=== PATIENT | female | born 1970 | race Caucasian/White ===

== ENCOUNTER → 2017-04-01 15:05 | Outpatient (CLI) | payer BC, SELFPAY ==
--- NOTE | 2017-04-01 15:31 | HPBI_ITS ---
MAMMOGRAPHY - BILATERAL SCREENING REASON FOR EXAM: Female, 46 years old. Routine annual screening examination. PERTINENT HISTORY: Non-contributory. TECHNIQUE: Digital bilateral breast jose (3D mammographic acquisition) in the CC and MLO projections. 2-D mediolateral oblique (MLO) and craniocaudad (CC) views of both breasts were obtained. CAD: Full Field Digital Mammography with Computer Added Detection was performed. COMPARISON: Comparison is made with prior examination dated December 26, 2015. FINDINGS: Breast Composition: There are scattered areas of fibroglandular density. There are no dominant masses or suspicious calcifications. Stable partially calcified nodules in the upper deep medial aspect of the left breast in keeping with a calcified fibroadenomas. Stable 8 mm well-defined nodular density in the upper lateral portion of the right breast suggestive of a small lymph node. No other significant abnormalities are identified. There has been no significant change since the prior study. HPBI/SCREENING MAMM (CAD), BILAT IMPRESSION: Stable bilateral screening mammogram. Yearly follow-up mammogram recommended. (A) ASSESSMENT CATEGORY: BIRADS Category 2: Benign. A letter regarding these results will be sent to the patient by the facility within 30 days. Approximately 10% of breast cancers are not detected by mammography. A normal mammogram should not delay biopsy of a clinically suspicious abnormality. [id number] Electronically Signed: Thanh Bray MD at 8:25 EST Tel [phone], Service support ,
== END ==
PROVIDERS: Family Provider Family Medicine; PCP Family Medicine; Visit Provider Nurse Practitioner Women's Health
DX: Z12.31 Encounter for screening mammogram for malignant neoplasm of breast (principal)
CPT/HCPCS: 77063; 77067

== ENCOUNTER 2017-06-30 03:26 | Emergency (ER) | payer BC, SELFPAY ==
[2017-06-30 03:28] VITALS: BP 164/81; PULSE 107; RESP 16; TEMP 37.2; O2SAT 97; BMI 42.6
--- NOTE | 2017-06-30 04:01 | EKG12_ITS ---
Test Reason : PAIN Blood Pressure : / mmHG Vent. Rate : 093 BPM Atrial Rate : 093 BPM P-R Int : 114 ms QRS Dur : 086 ms QT Int : 348 ms P-R-T Axes : 016 017 036 degrees QTc Int : 432 ms Normal sinus rhythm Normal ECG Confirmed by FELICITA HARTMANN, LISA ([id number]), field map editor MICHAEL BAIG ([id number]) on 07/01/2017 3:43:18 PM Referred By: JUS Confirmed By:LISA MIMS MD
--- NOTE | 2017-06-30 04:02 | RAD_ITS ---
STUDY: X-RAY CHEST REASON FOR EXAM: Female, 47 years old. Pain on the right breast and in shoulder. TECHNIQUE: PA and lateral views of the chest. 3 images COMPARISON: 11/29/2016 FINDINGS: There are superimposed monitor leads. Minimal atelectasis or scarring in the left base. There is no focal parenchymal abnormality. There is no demonstrated pleural abnormality. Normal size heart. Normal mediastinum and sindy. Normal visualized pulmonary arteries. Normal visualized aortic arch and descending thoracic aorta. Age-appropriate thoracic spine. Normal visualized ribs, clavicles, and shoulders. There is no demonstrated abnormality of the visualized soft tissue structures of the upper abdomen. RAD/Chest PA and Lateral IMPRESSION: Minimal scarring or atelectasis left base. No pulmonary edema, congestive heart failure or confluent pneumonia. Electronically Signed: Emilia Galdamez MD at 4:39 EDT , Service support ,
--- NOTE | 2017-06-30 04:03 | ED.VISSUMM ---
- ER Visit Summary Date of Service: 06/30/17 Chief Complaint: Right chest pain History of Present Illness: The patient is a 47 F who presents for several hours of right-sided pleuritic chest pain. Patient was at rest when she began having sharp stabbing pain under her right breast and radiating up towards the upper chest. It was intermittent initially, but now has become more consistent. It is worse with breathing, coughing and moving. Improved if patient holds her breath or stays still. She has associated nausea, cough and shortness of breath. No fever. Patient states she had bronchitis last week. Recent flight to [place]. No history of DVT or PE. Former smoker and not currently on any hormone replacement. Patient has history of hypertension, hypercholesterolemia, GERD and hysterectomy. Physical Examination: Vital signs: afebrile, tachycardic, normotensive,, no hypoxia on room air General: well nourished, well developed, in no distress but tearful and appears uncomfortable Skin: warm, dry, no rash, no pallor, no vesicular rash or erythema to the right chest or under the breast HEENT: normocephalic and atraumatic; PERRL, EOMI, moist mucous membranes Cardiovascular: Tachycardic rate and rhythm without murmurs, no peripheral edema, 2+ pulses all distal extremities Respiratory: Shallow respirations, lungs are clear to auscultation bilaterally, no rales, rhonchi or wheezing Abdominal: Abdomen is soft, nontender with normoactive bowel sounds, no guarding or rebound, no masses MSK: Moves all extremities, no deformities, normal strength, healing contusions to the left lower leg no calf swelling or tenderness Neuro: Awake and alert, oriented ?4. No facial droop, sensation and motor function intact and symmetric Test Results: Abnormal Lab Results 06/30/17 06/30/17 06/30/17 04:15 04:15 04:15 WBC 14.7 H RBC 4.01 L Hgb 12.4 Hct 36.4 L MCV 90.8 MCH 30.9 MCHC 34.1 RDW 12.9 RDW Differential 42.4 Plt Count 323 MPV 10.7 Immature Gran % (Auto) 0.300 Neut % (Auto) 77.5 H Lymph % (Auto) 12.0 L [place] % (Auto) 8.5 Eos % (Auto) 1.6 Baso % (Auto) 0.1 Absolute Neuts (auto) 11.4 H Absolute Lymphs (auto) 1.76 Total Counted Not Reportable D-Dimer Quant (PE/DVT) Cancelled Sodium 141 Potassium 3.9 Chloride 105 Carbon Dioxide 27.0 Anion Gap 9 BUN 12 Creatinine 0.72 Estim Creat Clear Calc 95.34 Est GFR (MDRD) Af Amer 110 Est GFR (MDRD) Non-Af 91 BUN/Creatinine Ratio 16.6 Glucose 147 H Calcium 8.4 L Total Bilirubin 0.20 AST 15 ALT 28 Alkaline Phosphatase 95 Troponin I < 0.02 Total Protein 6.8 Albumin 3.2 Globulin 3.6 Albumin/Globulin Ratio 0.9 Lipase 202 06/30/17 04:58 WBC RBC Hgb Hct MCV MCH MCHC RDW RDW Differential Plt Count MPV Immature Gran % (Auto) Neut % (Auto) Lymph % (Auto) [place] % (Auto) Eos % (Auto) Baso % (Auto) Absolute Neuts (auto) Absolute Lymphs (auto) Total Counted D-Dimer Quant (PE/DVT) 0.36 Sodium Potassium Chloride Carbon Dioxide Anion Gap BUN Creatinine Estim Creat Clear Calc Est GFR (MDRD) Af Amer Est GFR (MDRD) Non-Af BUN/Creatinine Ratio Glucose Calcium Total Bilirubin AST ALT Alkaline Phosphatase Troponin I Total Protein Albumin Globulin Albumin/Globulin Ratio Lipase Emergency Department Course and Treatment: Patient was given morphine for pain. Her chest pain is more pleuritic in nature, making acute coronary syndrome less likely. EKG showed no ischemic changes and no changes concerning for pericarditis. Troponin negative. Patient had leukocytosis of 14.7, and on further questioning, she recently completed a course of prednisone for her bronchitis. She is now on diclofenac times daily for knee pain and then will switch back to her Mobic after 1 week. Chest x-ray showed no pneumonia, pneumothorax or other acute process. No electrolyte derangements. No liver derangements. Lipase normal. D-dimer is within normal limits at 0.36. Patient had some improvement in her pain with the morphine. We discussed that her diagnosis is most likely inflammation between the lining of the lung and the chest wall, likely due to her recent respiratory infection. Patient is currently on anti-inflammatory pain medication and thus cannot be prescribed more. She also just recently finished prednisone and thus it is unlikely for the prednisone will help her symptoms. Thus she was given a short course of [place] for severe pain but is encouraged to continue using the anti-inflammatories as much as possible. She is to follow-up with her doctor for further discussion of pain management strategies if she does not get relief within 1-2 days. Patient was discharged home with a ride. Treatment Plan: [] Disposition: [] Impression: Pleurisy This note was generated with [employer] dictation software. It may contain incorrect words, spelling, and punctuation that were not noted in review of the chart prior to signing ED Disposition - Plan for ED Patient: Disposition: Home or Assisted Living Chief Complaint: Other, Pain/Inj Instructions: ED Chest Pain Pleurisy Prescriptions: Hydrocodone/Acetaminophen [[place] 5-325 Tablet] 1 - 2 ea PO 4X/DAY PRN PRN 2 Days #8 tab PRN Reason: Pain Referrals: Buddy Hui MD [Primary Care Provider] - As soon as possible Additional Instructions: Your workup tonight for your sharp chest pain is most consistent with pleurisy. You are already on nonsteroidal anti-inflammatory medications and just finished a course of prednisone, which would be the most common treatments for pleurisy. Please continue to take your anti-inflammatory medications as you have been prescribed. You may use the [place] as needed for severe pain. Please follow-up with your doctor in 1-2 days if you are not having any improvement. If at any time your condition worsens, such as you develop high fever, severe chest pain that is not controlled with pain medication, trouble breathing, dizziness or lightheadedness, or any other concerns, return immediately to the emergency department for another evaluation.
--- NOTE | 2017-06-30 04:06 | ED.DCSUM_ITS ---
- ER Visit Summary Date of Service: 06/30/17 Chief Complaint: Right chest pain History of Present Illness: The patient is a 47 F who presents for several hours of right-sided pleuritic chest pain. Patient was at rest when she began having sharp stabbing pain under her right breast and radiating up towards the upper chest. It was intermittent initially, but now has become more consistent. It is worse with breathing, coughing and moving. Improved if patient holds her breath or stays still. She has associated nausea, cough and shortness of breath. No fever. Patient states she had bronchitis last week. Recent flight to [place]. No history of DVT or PE. Former smoker and not currently on any hormone replacement. Patient has history of hypertension, hypercholesterolemia, GERD and hysterectomy. Physical Examination: Vital signs: afebrile, tachycardic, normotensive,, no hypoxia on room air General: well nourished, well developed, in no distress but tearful and appears uncomfortable Skin: warm, dry, no rash, no pallor, no vesicular rash or erythema to the right chest or under the breast HEENT: normocephalic and atraumatic; PERRL, EOMI, moist mucous membranes Cardiovascular: Tachycardic rate and rhythm without murmurs, no peripheral edema , 2+ pulses all distal extremities Respiratory: Shallow respirations, lungs are clear to auscultation bilaterally, no rales, rhonchi or wheezing Abdominal: Abdomen is soft, nontender with normoactive bowel sounds, no guarding or rebound, no masses MSK: Moves all extremities, no deformities, normal strength, healing contusions to the left lower leg no calf swelling or tenderness Neuro: Awake and alert, oriented ?4. No facial droop, sensation and motor function intact and symmetric Test Results: Abnormal Lab Results 06/30/17 06/30/17 06/30/17 04:15 04:15 04:15 WBC 14.7 H RBC 4.01 L Hgb 12.4 Hct 36.4 L MCV 90.8 MCH 30.9 MCHC 34.1 RDW 12.9 RDW Differential 42.4 Plt Count 323 MPV 10.7 Immature Gran % (Auto) 0.300 Neut % (Auto) 77.5 H Lymph % (Auto) 12.0 L [place] % (Auto) 8.5 Eos % (Auto) 1.6 Baso % (Auto) 0.1 Absolute Neuts (auto) 11.4 H Absolute Lymphs (auto) 1.76 Total Counted Not Reportable D-Dimer Quant (PE/DVT) Cancelled Sodium 141 Potassium 3.9 Chloride 105 Carbon Dioxide 27.0 Anion Gap 9 BUN 12 Creatinine 0.72 Estim Creat Clear Calc 95.34 Est GFR (MDRD) Af Amer 110 Est GFR (MDRD) Non-Af 91 BUN/Creatinine Ratio 16.6 Glucose 147 H Calcium 8.4 L Total Bilirubin 0.20 AST 15 ALT 28 Alkaline Phosphatase 95 Troponin I < 0.02 Total Protein 6.8 Albumin 3.2 Globulin 3.6 Albumin/Globulin Ratio 0.9 Lipase 202 06/30/17 04:58 WBC RBC Hgb Hct MCV MCH MCHC RDW RDW Differential Plt Count MPV Immature Gran % (Auto) Neut % (Auto) Lymph % (Auto) [place] % (Auto) Eos % (Auto) Baso % (Auto) Absolute Neuts (auto) Absolute Lymphs (auto) Total Counted D-Dimer Quant (PE/DVT) 0.36 Sodium Potassium Chloride Carbon Dioxide Anion Gap BUN Creatinine Estim Creat Clear Calc Est GFR (MDRD) Af Amer Est GFR (MDRD) Non-Af BUN/Creatinine Ratio Glucose Calcium Total Bilirubin AST ALT Alkaline Phosphatase Troponin I Total Protein Albumin Globulin Albumin/Globulin Ratio Lipase Emergency Department Course and Treatment: Patient was given morphine for pain. Her chest pain is more pleuritic in nature, making acute coronary syndrome less likely. EKG showed no ischemic changes and no changes concerning for pericarditis. Troponin negative. Patient had leukocytosis of 14.7, and on further questioning, she recently completed a course of prednisone for her bronchitis. She is now on diclofenac times daily for knee pain and then will switch back to her Mobic after 1 week. Chest x-ray showed no pneumonia, pneumothorax or other acute process. No electrolyte derangements. No liver derangements. Lipase normal. D-dimer is within normal limits at 0.36. Patient had some improvement in her pain with the morphine. We discussed that her diagnosis is most likely inflammation between the lining of the lung and the chest wall, likely due to her recent respiratory infection. Patient is currently on anti-inflammatory pain medication and thus cannot be prescribed more. She also just recently finished prednisone and thus it is unlikely for the prednisone will help her symptoms. Thus she was given a short course of [place] for severe pain but is encouraged to continue using the anti- inflammatories as much as possible. She is to follow-up with her doctor for further discussion of pain management strategies if she does not get relief within 1-2 days. Patient was discharged home with a ride. Treatment Plan: [] Disposition: [] Impression: Pleurisy This note was generated with [employer] dictation software. It may contain incorrect words, spelling, and punctuation that were not noted in review of the chart prior to signing ED Disposition - Plan for ED Patient: Disposition: Home or Assisted Living Chief Complaint: Other, Pain/Inj Instructions: ED Chest Pain Pleurisy Prescriptions: Hydrocodone/Acetaminophen [[place] 5-325 Tablet] 1 - 2 ea PO 4X/DAY PRN PRN 2 Days #8 tab PRN Reason: Pain Referrals: Buddy Hui MD [Primary Care Provider] - As soon as possible Additional Instructions: Your workup tonight for your sharp chest pain is most consistent with pleurisy. You are already on nonsteroidal anti-inflammatory medications and just finished a course of prednisone, which would be the most common treatments for pleurisy. Please continue to take your anti-inflammatory medications as you have been prescribed. You may use the [place] as needed for severe pain. Please follow-up with your doctor in 1-2 days if you are not having any improvement. If at any time your condition worsens, such as you develop high fever, severe chest pain that is not controlled with pain medication, trouble breathing, dizziness or lightheadedness, or any other concerns, return immediately to the emergency department for another evaluation.
[2017-06-30] MEDS: Morphine 4 MG/ML Syringe IV (04:23)
[2017-06-30] MEDS: Ondansetron 4 MG/2 ML Vial IV (04:23)
[2017-06-30 04:33] LABS: Absolute Lymphocyte Count 1.76 X10^3/ul (0.83-4.51); Absolute Neutrophil Count 11.4 X10^3/uL (2.0-7.7); Basophil# 0.02 X10^3/uL; Basophil% 0.1 % (0-1); Eosinophil# 0.24 X10^3/uL; Eosinophils% 1.6 % (0-5); Hematocrit 36.4 % (37-47); Hemoglobin 12.4 g/dl (12.0-15.0); Lymphocyte # 1.76 X10^3/ul (4.0); Mean Corp Hgb Conc 34.1 g/gl (32-36); Mean Corpuscular Hgb 30.9 pg (27.0-32.0); Mean Corpuscular Volume 90.8 fL (81-99); Mean Platelet Vol. 10.7 fl (6.2-12.0); Monocyte# 1.25 X10^3/uL; Monocyte% 8.5 % (0-10); Neutrophil # 11.39 X10^3/uL (2.7-7.7); Neutrophil % 77.5 % (47-70); Platelet Count 323 K/mm3 (150-450); RBC Distribution Width CV 12.9 % (11.6-14.6); RBC Distribution Width SD 42.4 fl (35.1-43.9); Red Blood Count 4.01 M/mm3 (4.2-5.4); White Blood Count 14.7 K/mm3 (4.4-11.0)
[2017-06-30 04:35] LABS: POSITIVE COUNT NO; POSITIVE DIFFERENTIAL NO; POSITIVE MORPHOLOGY NO
[2017-06-30 04:51] LABS: ALB/GLOB Ratio 0.9 RATIO (0.9-2.4); AST(SGOT) 15 U/L (15-37); Alanine Aminotransfer ALT/SGPT 28 U/L (13-56); Albumin, Serum 3.2 g/dL (3.2-5.0); Alkaline Phosphatase 95 U/L (45-117); Anion Gap 9 (5-15); BUN 12 mg/dL (7-18); BUN/Creat Ratio 16.6 RATIO (10-20); Calcium,Total 8.4 mg/dL (8.5-10.1); Chloride 105 mmol/L (98-107); Creatinine, Serum 0.72 mg/dL (0.55-1.02); EST Glomerular Filtration Rate 91 mL/min (>60); Est Glom Filt Rate - Afr Amer 110 mL/min (>60); Estimated Creatinine Clearance 95.34 ml/min; Globulin 3.6 g/dL (2.2-4.2); Glucose 147 mg/dL (74-106); Lipase 202 U/L (73-393); Potassium 3.9 mmol/L (3.5-5.1); Protein, Total 6.8 g/dL (6.4-8.2); Sodium Level 141 mmol/L (136-145)
[2017-06-30 05:17] LABS: D-Dimer Quantitative (DVT/PE) 0.36 FEU/ug/m (0.27-0.49)
--- NOTE | 2017-06-30 05:41 | ED.DEP ---
ED Disposition - Plan for ED Patient: Disposition: Home or Assisted Living Chief Complaint: Other, Pain/Inj Instructions: ED Chest Pain Pleurisy Prescriptions: Hydrocodone/Acetaminophen [[place] 5-325 Tablet] 1 - 2 ea PO 4X/DAY PRN PRN 2 Days #8 tab PRN Reason: Pain Referrals: Buddy Hui MD [Primary Care Provider] - As soon as possible Additional Instructions: Your workup tonight for your sharp chest pain is most consistent with pleurisy. You are already on nonsteroidal anti-inflammatory medications and just finished a course of prednisone, which would be the most common treatments for pleurisy. Please continue to take your anti-inflammatory medications as you have been prescribed. You may use the [place] as needed for severe pain. Please follow-up with your doctor in 1-2 days if you are not having any improvement. If at any time your condition worsens, such as you develop high fever, severe chest pain that is not controlled with pain medication, trouble breathing, dizziness or lightheadedness, or any other concerns, return immediately to the emergency department for another evaluation.
--- NOTE | 2017-06-30 05:44 | DCINST.ED_ITS ---
ED Disposition - Plan for ED Patient: Disposition: Home or Assisted Living Chief Complaint: Other, Pain/Inj Instructions: ED Chest Pain Pleurisy Prescriptions: Hydrocodone/Acetaminophen [[place] 5-325 Tablet] 1 - 2 ea PO 4X/DAY PRN PRN 2 Days #8 tab PRN Reason: Pain Referrals: Buddy Hui MD [Primary Care Provider] - As soon as possible Additional Instructions: Your workup tonight for your sharp chest pain is most consistent with pleurisy. You are already on nonsteroidal anti-inflammatory medications and just finished a course of prednisone, which would be the most common treatments for pleurisy. Please continue to take your anti-inflammatory medications as you have been prescribed. You may use the [place] as needed for severe pain. Please follow-up with your doctor in 1-2 days if you are not having any improvement. If at any time your condition worsens, such as you develop high fever, severe chest pain that is not controlled with pain medication, trouble breathing, dizziness or lightheadedness, or any other concerns, return immediately to the emergency department for another evaluation.
[2017-06-30 05:54] VITALS: O2SAT 98
[2017-06-30 05:55] VITALS: BP 157/67; PULSE 98; RESP 16; O2SAT 97
[2017-06-30] MEDS: HYDROcodone Bitartrate/Apap 5/325 Tablet PO ×2 (05:56)
[2017-06-30 06:05] VITALS: BP 150/78; PULSE 97; RESP 18; O2SAT 98
== END 2017-06-30 06:05 | disposition home or self-care (01) ==
PROVIDERS: Emergency Provider Emergency Medicine; Family Provider Family Medicine; PCP Family Medicine
DX: R09.1 Pleurisy (principal); I10 Essential (primary) hypertension; E78.00 Pure hypercholesterolemia, unspecified; K21.9 Gastro-esophageal reflux disease without esophagitis; E66.9 Obesity, unspecified; Z68.41 Body mass index [BMI] 40.0-44.9, adult; Z79.82 Long term (current) use of aspirin; Z79.899 Other long term (current) drug therapy; Z87.891 Personal history of nicotine dependence
CPT/HCPCS: 71046; 80053; 83690; 84484; 85025; 85379; 93005; 96374; 96375; 99285; A4216; J2405

== ENCOUNTER 2017-07-08 16:11 | Emergency (ER) | payer BC, SELFPAY ==
[2017-07-08 16:12] VITALS: BP 157/87; PULSE 105; RESP 18; TEMP 36.7; O2SAT 95; BMI 42.7
--- NOTE | 2017-07-08 16:26 | VDLE_ITS ---
Reason For Study: LLE swelling RIGHT LEFT CFV is compressible, spontaneous, phasic, GSV is normal. competent and demonstrates normal CFV is compressible, spontaneous, phasic, augmentation. competent, and demonstrates normal Procedure augmentation. Exam performed portable in ED. FV is compressible, spontaneous, phasic, The study was technically difficult. competent and demonstrates normal A preliminary report was called and/or faxed augmentation. to DR. Fatmata Howe @ 4:45 pm & ED. POP V is compressible, spontaneous, phasic, competent and demonstrates normal augmentation. T/P Trunk is compressible. PTV is compressible. LT PerV is compressible. Interpretation Summary Deep veins of the left lower extremity are patent and compressible segmentally. There is no evidence of left lower extremity deep vein thrombosis. Valvular competence appears intact within the proximal deep venous system on the left . The left greater saphenous vein appears patent and compressible segmentally. Ordering Physician: Dion Howe Referring Physician: Rafael Hui Performed By: Demetrice Borges, NELSON, RVT
--- NOTE | 2017-07-08 16:28 | ED.VISSUMM ---
- ER Visit Summary Date of Service: 07/08/17 Chief Complaint: Left lower leg swelling History of Present Illness: The patient is a 47 F on 19 June she had a 4 hour flight. She also had a recent fall and bruising her left lower leg. Now she has swelling the left lower leg. She said this happened one other time before. But she has never had a DVT. She denies chest pain. She did get short of breath the other day inhaler and is feeling better. Any chest pain or hemoptysis. Physical Examination: Appearing middle-aged female vital signs are stable and afebrile. Pulse ox 95% room air no signs of hypoxia. H EENT exam unremarkable. Neck nontender no JVD. No lymphadenopathy. Lungs clear to auscultation bilaterally. Heart regular rhythm rate about 100. No murmur. Abdomen soft nontender. Normal bowel sounds no peritoneal signs. She is moving all 4 extremities are neurovascular intact. The left needle left ankle she has 1+ edema. No calf tenderness. Left foot is neurovascular intact with DP pulse. Full range of motion left hip, knee, ankle and foot. Normal touch sensation. No compartment syndrome. She did show me a picture of her left lower leg that was bruised after the fall 2 weeks ago. Neurologically she is awake alert with no focal deficits. Test Results: Venous ultrasound left lower leg shows no DVT per the substation maintenance technician. Emergency Department Course and Treatment: Repeat exam patient is doing well. Treatment Plan: That she does have a history of trauma to that leg. And had a picture showing the bruising. This will be treated conservatively with ice and anti-inflammatories. Disposition: Discharge Impression: Left lower leg edema secondary to recent fall and trauma This note was generated with [employer] dictation software. It may contain incorrect words, spelling, and punctuation that were not noted in review of the chart prior to signing ED Disposition - Plan for ED Patient: Chief Complaint: Edema Referrals: Buddy Hui MD [Primary Care Provider] -
--- NOTE | 2017-07-08 16:31 | ED.DCSUM_ITS ---
- ER Visit Summary Date of Service: 07/08/17 Chief Complaint: Left lower leg swelling History of Present Illness: The patient is a 47 F on 19 June she had a 4 hour flight. She also had a recent fall and bruising her left lower leg. Now she has swelling the left lower leg. She said this happened one other time before. But she has never had a DVT. She denies chest pain. She did get short of breath the other day inhaler and is feeling better. Any chest pain or hemoptysis. Physical Examination: Appearing middle-aged female vital signs are stable and afebrile. Pulse ox 95% room air no signs of hypoxia. H EENT exam unremarkable. Neck nontender no JVD. No lymphadenopathy. Lungs clear to auscultation bilaterally. Heart regular rhythm rate about 100. No murmur. Abdomen soft nontender. Normal bowel sounds no peritoneal signs. She is moving all 4 extremities are neurovascular intact. The left needle left ankle she has 1+ edema. No calf tenderness. Left foot is neurovascular intact with DP pulse. Full range of motion left hip, knee, ankle and foot. Normal touch sensation. No compartment syndrome. She did show me a picture of her left lower leg that was bruised after the fall 2 weeks ago. Neurologically she is awake alert with no focal deficits. Test Results: Venous ultrasound left lower leg shows no DVT per the appliance technician. Emergency Department Course and Treatment: Repeat exam patient is doing well. Treatment Plan: That she does have a history of trauma to that leg. And had a picture showing the bruising. This will be treated conservatively with ice and anti-inflammatories. Disposition: Discharge Impression: Left lower leg edema secondary to recent fall and trauma This note was generated with [employer] dictation software. It may contain incorrect words, spelling, and punctuation that were not noted in review of the chart prior to signing ED Disposition - Plan for ED Patient: Chief Complaint: Edema Referrals: Buddy Hui MD [Primary Care Provider] -
--- NOTE | 2017-07-08 16:54 | ED.DEP ---
ED Disposition - Plan for ED Patient: Disposition: Home or Assisted Living Chief Complaint: Edema Instructions: ED Leg Swelling Unilateral Referrals: Buddy Hui MD [Primary Care Provider] - 1 Week if not improving Additional Instructions: Ice and elevate your left leg. Ultrasound no signs of any DVT. Motrin for pain and swelling. This should improve if it is not follow-up with primary care physician.
[2017-07-08 17:01] VITALS: PULSE 85; RESP 18; O2SAT 96
== END 2017-07-08 17:09 | disposition home or self-care (01) ==
LOC: ED 17:06
PROVIDERS: Emergency Provider Emergency Medicine; Family Provider Family Medicine; PCP Family Medicine
DX: S80.12XA Contusion of left lower leg, initial encounter (principal); W19.XXXA Unspecified fall, initial encounter; Y93.9 Activity, unspecified; Y92.9 Unspecified place or not applicable; I10 Essential (primary) hypertension; E78.00 Pure hypercholesterolemia, unspecified; K21.9 Gastro-esophageal reflux disease without esophagitis; Z79.82 Long term (current) use of aspirin; Z79.899 Other long term (current) drug therapy
CPT/HCPCS: 93971; 99282

== ENCOUNTER → 2018-04-25 13:16 | Outpatient (CLI) | payer BC, SELFPAY ==
--- NOTE | 2018-04-25 13:19 | BI_ITS ---
MAMMOGRAPHY - BILATERAL SCREENING REASON FOR EXAM: Female, 47 years old. Routine annual screening examination. PERTINENT HISTORY: Non-contributory. TECHNIQUE: Digital bilateral breast jaymie (3D mammographic acquisition) in the CC and MLO projections. 2-D mediolateral oblique (MLO) and craniocaudad (CC) views of both breasts were obtained. CAD: Full Field Digital Mammography with Computer Added Detection was performed. COMPARISON: Comparison is made with prior study dated April 01, 2017. FINDINGS: Breast Composition: There are scattered areas of fibroglandular density. There are no dominant masses or suspicious calcifications. Stable partially calcified nodules in the upper medial aspect of the left breast. Stable 8 mm well-defined nodule in the upper lateral portion of the right breast. No other significant abnormalities are identified. There has been no significant change since the prior study. BI/SCREEN MAMM (CAD) W/JAYMIE BILAT IMPRESSION: Stable bilateral screening mammogram. Yearly follow-up mammogram recommended. (A) ASSESSMENT CATEGORY: BIRADS Category 2: Benign. A letter regarding these results will be sent to the patient by the facility within 30 days. Approximately 10% of breast cancers are not detected by mammography. A normal mammogram should not delay biopsy of a clinically suspicious abnormality. [id number] Electronically Signed: Thanh Bray, at 15:40 EST , Service support ,
== END ==
PROVIDERS: Family Provider Family Medicine; PCP Family Medicine; Visit Provider Nurse Practitioner Women's Health
DX: Z12.31 Encounter for screening mammogram for malignant neoplasm of breast (principal)
CPT/HCPCS: 77063; 77067

== ENCOUNTER 2018-10-22 22:01 | Observation (INO) | payer BC, SELFPAY ==
[2018-06-07 14:51] VITALS: BMI 42.7
[2018-10-22 22:03] VITALS: BP 161/110; PULSE 107; RESP 15; TEMP 37.1; O2SAT 96; BMI 43.3
--- NOTE | 2018-10-22 22:48 | RAD_ITS ---
STUDY: X-RAY CHEST REASON FOR EXAM: Female, 48 years old. Chest tightness TECHNIQUE: Frontal and lateral views of the chest. COMPARISON: June 30, 2017 FINDINGS: EKG leads artifacts. The lungs are clear and expanded. There is no demonstrated pleural abnormality. Normal size heart. Normal mediastinum and sindy. Normal visualized pulmonary arteries. Normal visualized aortic arch and descending thoracic aorta. Normal visualized thoracic spine. Normal visualized ribs, clavicles, and shoulders. There is no demonstrated abnormality of the visualized soft tissue structures of the upper abdomen. RAD/Chest 1 View (Portable) IMPRESSION: Normal x-ray examination of the chest. Electronically Signed: Giovany Gustafson, at 23:18 EDT Tel , Service support ,
--- NOTE | 2018-10-22 22:48 | EKG12_ITS ---
Test Reason : CP Blood Pressure : / mmHG Vent. Rate : 107 BPM Atrial Rate : 107 BPM P-R Int : 142 ms QRS Dur : 088 ms QT Int : 368 ms P-R-T Axes : 064 037 059 degrees QTc Int : 491 ms Sinus tachycardia Otherwise normal ECG Confirmed by TRACY HARTMANN, KATHYA ([id number]), publication editor VIKA PITTS ([id number]) on 10/25/2018 11:49:10 AM Referred By: DC Confirmed By:KATHYA MOLINA MD
[2018-10-22] MEDS: Aspirin 81 MG TAB.CHEW 324 MG PO (22:54)
[2018-10-22 22:55] VITALS: O2SAT 96
[2018-10-22 23:13] LABS: Absolute Lymphocyte Count 1.74 X10^3/uL (0.83-4.51); Absolute Neutrophil Count 5.4 X10^3/uL (2.0-7.7); Basophil# 0.02 X10^3/uL; Basophil% 0.3 % (0-1); Eosinophil# 0.23 X10^3/uL; Hematocrit 37.4 % (37-47); Lymphocyte # 1.74 X10^3/ul (4.0); Lymphocyte % 22.5 % (19-41); Mean Corp Hgb Conc 34.8 g/dL (32-36); Mean Corpuscular Hgb 30.7 pg (27.0-32.0); Mean Corpuscular Volume 88.2 fL (81-99); Mean Platelet Vol. 10.7 fl (6.2-12.0); Monocyte# 0.31 X10^3/uL; NRBC Flagged by Analyzer 0 % (0-5); Neutrophil # 5.39 X10^3/uL (2.7-7.7); Neutrophil % 69.8 % (47-70); Platelet Count 230 K/mm3 (150-450); RBC Distribution Width CV 12.6 % (11.6-14.6); RBC Distribution Width SD 40.7 fl (35.1-43.9); Red Blood Count 4.24 M/mm3 (4.2-5.4); White Blood Count 7.7 K/mm3 (4.4-11.0)
[2018-10-22 23:20] VITALS: BP 142/85; PULSE 89; RESP 19; O2SAT 94
[2018-10-22 23:32] LABS: Anion Gap 9 (5-15); BUN 16 mg/dL (7-18); BUN/Creat Ratio 19.6 RATIO (10-20); Calcium,Total 8.9 mg/dL (8.5-10.1); Chloride 105 mmol/L (98-107); Creatinine, Serum 0.82 mg/dL (0.55-1.02); EST Glomerular Filtration Rate 79 mL/min (>60); Est Glom Filt Rate - Afr Amer 95 mL/min (>60); Glucose 179 mg/dL (74-106); Sodium Level 140 mmol/L (136-145)
[2018-10-23] VITALS (8 sets, daily range): BP systolic 124–145; BP diastolic 64–83; PULSE 78–97; RESP 16–21; TEMP 36.6–37.1; O2SAT 95–97; BMI 43.3; BMI 43.9
--- NOTE | 2018-10-23 00:07 | HP.PCM_ITS ---
Problem List (1) Family history of cardiovascular disease Status: Chronic (2) Morbid obesity with body mass index of 40.0-49.9 Status: Chronic (3) HLD (hyperlipidemia) Status: Chronic (4) HTN (hypertension) Status: Chronic Qualifiers: Hypertension type: essential hypertension Qualified Code(s): I10 - Essential (primary) hypertension (5) Chest pain Status: Acute History of Present Illness Date of Admission: 10/23/18 Chief Complaint: chest pain The patient is a 48 year old F with a significant history of hypertension; hyperlipidemia; GERD; super morbid obesity; and tobacco abuse who presented to emergency department with substernal mild chest pain that started 1 hour prior to presentation. She describes her chest pain as tightness. The chest pain radiates to her jaw; and to her left shoulder. Her chest pain started when she was loading her glass curvature gauger. Associated with symptoms is shortness of breath; nausea and diaphoresis. For the last 3 weeks has been having shortness of breath with moderate exertion. When she walks up to a flight of stairs she becomes very short of breath. She took 1 baby aspirin when her chest pain started. She reported that she has being take a baby aspirin daily since she was started on blood pressure medicine many years ago. She was given 324 mg of aspirin at the emergency department. About 6 days ago she went to urgent care because of right upper quadrant pain and was referred to see a doctor at the office. A follow-up ultrasound of her right upper quadrant was unremarkable. Because of shortness breath for the last 3 weeks; and diaphoresis she was referred to see a district customs director. She is scheduled to see the district customs director on 10/24/2018 at 8 AM at [facility]. Her family history is remarkable for a maternal grandmother who from heart attack at age 58; her mother who had heart attack at about age 65; and her father who had heart attack at age 60. Past Medical History Past Medical History (Chronic Problems): Chronic Problems (Last Reviewed 10/23/18 @ 01:24 by Mitchell Turner MD) Family history of cardiovascular disease (Chronic) Morbid obesity with body mass index of 40.0-49.9 (Chronic) HLD (hyperlipidemia) (Chronic) GERD (gastroesophageal reflux disease) (Chronic) Endometriosis (Chronic) HTN (hypertension) (Chronic) Medical History: Medical History (Last Reviewed 10/23/18 @ 01:24 by Mitchell Turner MD) Endometriosis N80.9 Hyperlipidemia E78.5 Hypertension I10 Allergies codeine Allergy (Verified 06/07/18 14:50) Anaphylaxis shellfish derived Allergy (Verified 06/07/18 14:50) Nausea/Vom/Diarrhea strawberry Allergy (Verified 06/07/18 14:50) Hives Sulfa (Sulfonamide Antibiotics) Allergy (Verified 06/07/18 14:50) Anaphylaxis pineapple [Pineapple] Adverse Reaction (Verified 06/07/18 14:50) Nausea/Vom/Diarrhea IVP DYE Allergy (Uncoded 06/07/18 14:50) Anaphylaxis cherries Adverse Reaction (Uncoded 06/07/18 14:50) Nausea/Vom/Diarrhea squash Adverse Reaction (Uncoded 06/07/18 14:50) Nausea/Vom/Diarrhea walnuts Adverse Reaction (Uncoded 06/07/18 14:50) Nausea/Vom/Diarrhea Home Medications: Ambulatory Orders Medication Instructions Recorded Aspirin [Aspirin, Baby] 81 mg PO DAILY@0800 06/05/13 Cholecalciferol (Vitamin D3) 1,000 unit PO DAILY 06/05/13 [Vitamin D3] Simvastatin [Zocor] 5 mg PO QHS 06/05/13 Calcium Carbonate [Calcium] 300 mg PO BID 02/20/16 Glucosa Archuleta 2Kcl/Chondroitin Archuleta 1 ea PO BID 02/20/16 [Glucosamine-Chondroitin Cap] Pantoprazole Sodium [Protonix] 40 mg PO DAILY 02/20/16 meloxicam 15 mg tablet 15 mg PO QDAY 03/08/17 amlodipine 10 mg tablet 10 mg PO QDAY 05/02/17 hydrochlorothiazide 25 mg tablet 25 mg PO QAM 05/02/17 venlafaxine ER 75 mg 75 mg PO QDAY #90 cap 05/26/18 capsule,extended release 24 hr Cetirizine HCl [Zyrtec] 10 mg PO DAILY 10/22/18 Potassium (Otc) [Potassium Otc] 99 mg PO DAILY 10/22/18 Surgical History: Surgical History (Last Reviewed 10/23/18 @ 01:24 by Mitchell Turner MD) H/O laparoscopy Z98.890 H/O: hysterectomy Z98.890, Z90.710 Right ovary remains History of lateral meniscus repair of left knee Z98.890 Plantar fascia syndrome M72.2 Surgical History: cholecystectomy, tonsillectomy, - - exploratory laparoscopy for endometriosis. arthroscopic surgery on her knee. 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 he is para 3 3. Lives: Spouse/ Significant Other Smoking Status: Current every day smoker Tobacco Use: Cigarettes Alcohol: Occasional - *Family History Maternal Family History: Family History (Last Reviewed 10/23/18 @ 01:25 by Mitchell Turner MD) Father Myocardial infarction Hypertension Mother Heart disease Hypertension Grandmother Heart disease Hypertension History Items: Heart Disease, Pulmonary Disease Paternal Family History: Family History (Last Reviewed 10/23/18 @ 01:25 by Mitchell Turner MD) Father Myocardial infarction Hypertension Mother Heart disease Hypertension Grandmother Heart disease Hypertension History Items: Heart Disease, - - her father had an NV at age 58 Sibling Family History: Family History (Last Reviewed 10/23/18 @ 01:25 by Mitchell Turner MD) Father Myocardial infarction Hypertension Mother Heart disease Hypertension Grandmother Heart disease Hypertension History Items: - - she has a sister with Krystal's thyroiditis and anister with a thyroid tumor Review of Systems Constitutional: Denies: Chills, Fever, Weight Change HEENT: Denies: Head Aches, Sinus Congestion, Sinus Drainage Cardiovascular: Reports: Chest Tightness. Denies: Palpitations Respiratory: Reports: Shortness of Breath. Denies: Cough Gastrointestinal: Reports: Abdominal Pain - Right upper quadrant, Nausea. Denies: Vomiting Genitourinary: Denies: Dysuria Musculoskeletal: Denies: Joint Pain, Joint Tenderness Skin: Denies: Rash, Wounds Neurological: Denies: Numbness, Tingling, Focal weakness Psychiatric: Denies: Anxiety, Depression, Homicidal Ideations, Suicidal Ideations Hematologic/ Lymphatic: Denies: Easy Bruising, Easy Bleeding VTE Information - Inpt Only VTE Present on Admission: No VTE Mechan Device Prophylaxis: SCD's VTE Pharm Prophylaxis ordered?: No Patient Problems: Active and Suspected Problems (Last Reviewed 10/23/18 @ 01:24 by Mitchell Turner MD) Chest pain (Acute) - Physical Exam General: Alert, Oriented x3, Cooperative HEENT: Atraumatic, PERRLA, EOMI, Normocephalic Neck: Supple, No JVD, Negative Carotid Bruits Lungs: Clear to auscultation, Normal air movement Cardiovascular: Regular rate, No murmurs Abdomen: Bowel Sounds Present, Soft, Tender Extremities: No edema, Capillary Refill Less than 3 Seconds Skin: No rashes, No breakdown Musculoskeletal: No Tenderness to Palpation of Joints or Extremities Neurological: Cranial nerves II-XII grossly intact Psych/Mental Status: Normal Affect, Appropriate Vital Signs Temp Pulse Resp BP Pulse Ox 98.8 F 89 19 H 142/85 H 94 10/22/18 22:03 10/22/18 23:20 10/22/18 23:20 10/22/18 23:20 10/22/18 23:20 Oxygen Delivery Method Room Air Weight: 129.274 kg Body Mass Index (BMI) 43.3 Laboratory Tests Past 24 Hrs 10/22/18 10/22/18 10/22/18 23:05 23:05 23:05 WBC 7.7 RBC 4.24 Hgb 13.0 Hct 37.4 MCV 88.2 MCH 30.7 MCHC 34.8 RDW Std Deviation 40.7 RDW Coeff of Delia 12.6 Plt Count 230 MPV 10.7 Immature Gran % (Auto) 0.400 Neut % (Auto) 69.8 Lymph % (Auto) 22.5 [place] % (Auto) 4.0 Eos % (Auto) 3.0 Baso % (Auto) 0.3 Absolute Neuts (auto) 5.4 Absolute Lymphs (auto) 1.74 Nucleated RBC % 0 Sodium 140 Potassium 3.0 L Chloride 105 Carbon Dioxide 26.0 Anion Gap 9 BUN 16 Creatinine 0.82 Estim Creat Clear Calc 82.80 Est GFR (MDRD) Af Amer 95 Est GFR (MDRD) Non-Af 79 BUN/Creatinine Ratio 19.6 Glucose 179 H Calcium 8.9 Magnesium Pending Troponin I < 0.015 Assessment/Plan All Active Problems (Last Reviewed 10/23/18 @ 01:24 by Mitchell Turner MD) Chest pain (Acute) Atypical chest pain (Acute) Nausea (Acute) The patient is a 48 year old F with a significant history of hypertension; hyperlipidemia; super morbid obesity; and tobacco abuse who presented to emergency department with substernal mild chest pain; shortness of breath; nausea and diaphoresis consistent with probable cardiac source of chest pain. Chest pain Admit to a monitored bed on PCU CXR independently reviewed confirms no acute cardiopulmonary process. EKG independently reviewed confirms sinus tach with rate of 107 ASA 81 mg p.o. daily SL NTG 0.4 mg prn as needed for chest pain Morphine as needed for pain We will check lipid panel. Serial cardiac enzymes Stat EKG as needed for chest pain Chemical stress test in the AM if the cardiac enzymes are negative. She reported history of disc surgery and is unable to do the treadmill. She does physical therapy at home. Hypokalemia On presentation his potassium was 3.0. Patient received 40 mEq of potassium in the emergency department. Will give additional 60 mg of potassium. She reports that she has a history of chronic hypokalemia and was admitted for that previously. Trend BMP At home patient is on home [id number] potassium supplementation; not ordered here. Resume further Potassium supplementation at the hospital if patient stays for more than 1 day.. Continue outpatient follow-up. Hypertension On presentation her blood pressure was not within goal. Amlodipine and hydrochlorthiazide continued Trend blood pressure and adjust blood pressure medication. Of note because patient has chronic hypokalemia consider discussing switching hydrochlorothiazide to say lisinopril GERD Protonix continued Chronic pain Meloxicam continued. Allergies Zyrtec continued Hyperlipidemia Patient is on low-dose Zocor. Continue for now. Check lipid panel. Hyperglycemia On presentation her glucose on BMP was 179. Check hemoglobin A1c. DVT prophylaxis Moderate risk. Put on SCD. After stress test if patient continue to be at the Hospital consider chemical thromboprophylaxis. Code Visit OBSV E&M: 89359 Initial observation care L3
--- NOTE | 2018-10-23 00:07 | ED.VISSUMM ---
- ER Visit Summary Date of Service: 10/23/18 Chief Complaint: Shortness of breath History of Present Illness: The patient is a 48 F with shortness of breath that started this evening. She has had this on and off for weeks with exertion. She gets diaphoretic out of nowhere. Today she was also starting to have left jaw and left shoulder aching, chest tightness, and nausea. She was evaluated as an outpatient for her symptoms, specifically the shortness of breath and diaphoresis, and she had an abnormal EKG. She was referred for outpatient follow-up with cardiology. Patient has no history of coronary disease. She does report a history of hypertension, hyperlipidemia, smoking, and family history. She had a stress test years ago which was unremarkable. Physical Examination: Afebrile and vital signs unremarkable. Alert and oriented. No acute distress. Heart regular. Lungs clear. Abdomen soft. Remedies nontender with no edema. Skin appears normal. Test Results: EKG showed sinus rhythm at a rate of 107. No sign of ischemia or infarction pattern. CBC normal. Potassium 3.0 and glucose 179. Troponin normal. Magnesium pending. Emergency Department Course and Treatment: Patient treated with aspirin and placed on a monitor. EKG was unremarkable. Labs showed hypokalemia and she was treated with K-Dur. Magnesium is pending. Chest x-ray was unremarkable. Given her age, symptoms, and risk factors, hospitalist was contacted for admission. Treatment Plan: As above Disposition: PCU Impression: 1. Chest pain This note was generated with [employer] dictation software. It may contain incorrect words, spelling, and punctuation that were not noted in review of the chart prior to signing ED Disposition - Plan for ED Patient: Referrals: Buddy Hui MD [Primary Care Provider] -
[2018-10-23 00:10] LABS: Magnesium 1.7 mg/dL (1.6-2.6)
--- NOTE | 2018-10-23 01:00 | NURSING ---
TOLD RN HE WANTS THE EXTRA POTASSIUM GIVEN EVEN THOUGH PATIENT HAD 40MEQ IN ER.
--- NOTE | 2018-10-23 01:17 | EKG12_ITS ---
Test Reason : CP ADMIT Blood Pressure : / mmHG Vent. Rate : 080 BPM Atrial Rate : 080 BPM P-R Int : 136 ms QRS Dur : 090 ms QT Int : 402 ms P-R-T Axes : 017 040 057 degrees QTc Int : 463 ms Normal sinus rhythm Normal ECG Confirmed by TRACY HARTMANN, KATHYA ([id number]), map editor VIKA PITTS ([id number]) on 10/25/2018 12:56:41 PM Referred By: DR LEMUS Confirmed By:KATHYA MOLINA MD
[2018-10-23] MEDS: 0.9% NaCl IVPB Med Flush (250 mL) 15 ML IV (02:22)
[2018-10-23 04:38] LABS: Hemoglobin A1c 6.5 % (4.2-6.3)
[2018-10-23 05:16] LABS: Anion Gap 9 (5-15); BUN 17 mg/dL (7-18); BUN/Creat Ratio 28.9 RATIO (10-20); Calcium,Total 8.6 mg/dL (8.5-10.1); Chloride 109 mmol/L (98-107); Cholesterol 146 mg/dL (200); Creatinine, Serum 0.59 mg/dL (0.55-1.02); EST Glomerular Filtration Rate 115 mL/min (>60); Est Glom Filt Rate - Afr Amer 139 mL/min (>60); Estimated Creatinine Clearance 115.07 ml/min; Glucose 119 mg/dL (74-106); High Density Lipoprotein 34 mg/dL; Sodium Level 143 mmol/L (136-145); Triglycerides 142 mg/dL; Very Low Density Lipoprotein 28 mg/dL (5-40)
[2018-10-23] MEDS: Aspirin E.C. 81 MG Tablet PO (05:43)
[2018-10-23] MEDS: amLODIPine 10 MG Tablet PO (05:43)
[2018-10-23] MEDS: 0.9% NaCl Peripheral Flush Adult/Peds IV (05:43)
[2018-10-23] MEDS: Pantoprazole Sodium 40 MG Tablet PO (10:00)
[2018-10-23] MEDS: hydroCHLOROthiazide 25 MG Tablet PO (10:00)
[2018-10-23] MEDS: Meloxicam 15 MG Tablet PO (10:00)
--- NOTE | 2018-10-23 10:43 | STRESSREP_ITS ---
Stress Test Report Pharmacologic myocardial perfusion stress test. 78-year-old female with a history of chest pain. Stress protocol: Resting EKG demonstrates normal sinus rhythm with a rate of 80 bpm resting blood pressures 142/92 mmHg. 0.4 mg of regadenoson was infused per usual protocol followed by rapid intravenous saline flush injection continuous athletic monitor was performed. The maximum heart rate attained was 102 bpm which was 60% of maximum predicted heart rate and maximum workload was 1 metabolic equivalent. At rest there were no ST or T wave changes noted suggest abnormal flow reserve at peak infusion nonspecific ST-T wave changes were noted with no meet the criteria for ischemia. No clinical angina was noted. Myocardial perfusion protocol. Next 14.5 mCi of technetium 99m sestamibi was injected at rest. 0.4 mg of regadenoson was infused per usual protocol peak infusion 44.8 mCi of technetium 99m sestamibi was injected stress images were obtained stress and rest images were reconstructed and compared in the short axis vertical and horizontal long axis. Gated images were also obtained Perfusion SPECT analysis: Review of the stress images demonstrate normal uptake of tracer noted in all areas of the myocardium. The resting images similar demonstrate normal uptake of tracer noted in all areas of the myocardium. No obvious areas of reversibility are noted suggest ischemia. Gated SPECT analysis: The gated ejection fraction is noted to be 58%. Conclusion: Normal pharmacologic myocardial perfusion stress test. Preserved ejection fraction.
--- NOTE | 2018-10-23 11:58 | DCINST_ITS ---
- Discharge Diagnoses Current Active Problems: Current Active and Chronic Problems (Last Reviewed 10/23/18 @ 01:24 by Mitchell Turner MD) Chest pain (Acute) You will use the following diet at home:: No restrictions Your food should be the consistency of: Regular Your liquids should be the consistency of: Regular/Thin Discharge Activity: Return to Normal Activity Weight Bearing Status: Full weight bearing Allergies/Adverse Reactions: Allergies codeine Allergy (Verified 06/07/18 14:50) Anaphylaxis shellfish derived Allergy (Verified 06/07/18 14:50) Nausea/Vom/Diarrhea strawberry Allergy (Verified 06/07/18 14:50) Hives Sulfa (Sulfonamide Antibiotics) Allergy (Verified 06/07/18 14:50) Anaphylaxis pineapple [Pineapple] Adverse Reaction (Verified 06/07/18 14:50) Nausea/Vom/Diarrhea IVP DYE Allergy (Uncoded 06/07/18 14:50) Anaphylaxis cherries Adverse Reaction (Uncoded 06/07/18 14:50) Nausea/Vom/Diarrhea squash Adverse Reaction (Uncoded 06/07/18 14:50) Nausea/Vom/Diarrhea walnuts Adverse Reaction (Uncoded 06/07/18 14:50) Nausea/Vom/Diarrhea Medications to take at Discharge Aspirin [Aspirin, Baby] 81 mg PO DAILY@0800 06/05/13 Cholecalciferol (Vitamin D3) [Vitamin D3] 1,000 unit PO DAILY 06/05/13 Simvastatin [Zocor] 5 mg PO QHS 06/05/13 Calcium Carbonate [Calcium] 300 mg PO BID 02/20/16 Glucosa Archuleta 2Kcl/Chondroitin Archuleta [Glucosamine-Chondroitin Cap] 1 ea PO BID 02/20/16 Pantoprazole Sodium [Protonix] 40 mg PO DAILY 02/20/16 meloxicam 15 mg tablet 15 mg PO QDAY 03/08/17 venlafaxine ER 75 mg capsule,extended release 24 hr 75 mg PO QDAY #90 cap 05/26/18 Cetirizine HCl [Zyrtec] 10 mg PO DAILY 10/22/18 Hydrochlorothiazide [Hctz] 12.5 mg PO QAM #1 tab 10/23/18 Lisinopril 40 mg PO DAILY #30 tab 10/23/18 The following prescriptions were given: Hydrochlorothiazide [Hctz] 12.5 mg PO QAM #1 tab Lisinopril 40 mg PO DAILY #30 tab Transmission Status: Pending to [facility]/pharmacy #[id number] Primary Care Physician: Buddy Hui MD [Primary Care Provider] - Please follow up with your Primary Care Physician in: IN 2 WEEKS Test Results: Test results from this visit will be discussed in further detail at your follow- up appointment, if applicable.
--- NOTE | 2018-10-26 09:35 | PCM.DC.SUM ---
Discharge Date and Diagnosis Date of Admission: 10/23/18 Date of Discharge: 10/23/18 - Primary Discharge Diagnosis #1 Musculoskeletal chest pain #2 Hypokalemia #3 Hypertension #4 Hyperlipidemia #5 Morbid obesity - Secondary Discharge Diagnosis Chronic Problems (Last Reviewed 10/23/18 @ 01:24 by Mitchell Turner MD) Family history of cardiovascular disease (Chronic) Morbid obesity with body mass index of 40.0-49.9 (Chronic) HLD (hyperlipidemia) (Chronic) GERD (gastroesophageal reflux disease) (Chronic) Endometriosis (Chronic) HTN (hypertension) (Chronic) Hospital Course and Treatment Operations: None Procedures: Nuclear stress test Summary of Care Provided: The patient is a 48 year old F who was seen in the emergency room at [facility] with a chief complaint of chest pain. Work up in the emergy room included an EGK which showed no ischemic ischemic changes, chest x-ray was unremarkable, your labs were unremarkable except for a low potassium at 3 and an elevated glucose. Patient had a hemoglobin A1c ordered which resulted in a reading of 6.5. Patient was placed observation status on PCU, cardiac enzymes are cycled they remain normal, patient underwent a nuclear stress test which showed no evidence of reversible ischemia, patient was given potassium replacement. On 10/23/2018, patient was seen and examined: On examination he appeared in good health and spirits. Vital signs as documented. Skin warm and dry and without overt rashes. Neck without JVD. Lungs clear. Heart exam notable for regular rhythm, normal sounds and absence of murmurs, rubs or gallops. Abdomen unremarkable and without evidence of organomegaly, masses, or abdominal aortic enlargement. Patient is obese. Extremities- nonedematous. Neuro: Cranial nerves II through XII are grossly intact, no focal motor deficits were noted, sensation to light touch and pinprick intact. Psych: Patient is alert and oriented x3, he does not appear anxious or depressed On 10/23/2018, patient was seen and examined felt in stable condition for discharge home. - Physical Exam Vital Signs Temp Pulse Resp BP Pulse Ox 98.4 F 86 16 139/82 H 96 10/23/18 10:37 10/23/18 10:37 10/23/18 10:37 10/23/18 10:37 10/23/18 11:13 Oxygen Delivery Method Room Air Weight: 130.9 kg Body Mass Index (BMI) 43.9 Discharge Activity: Return to Normal Activity Weight Bearing Status: Full weight bearing Home Medications: Medications to take at Discharge Aspirin [Aspirin, Baby] 81 mg PO DAILY@0800 06/05/13 Cholecalciferol (Vitamin D3) [Vitamin D3] 1,000 unit PO DAILY 06/05/13 Simvastatin [Zocor] 5 mg PO QHS 06/05/13 Calcium Carbonate [Calcium] 300 mg PO BID 02/20/16 Glucosa Archuleta 2Kcl/Chondroitin Archuleta [Glucosamine-Chondroitin Cap] 1 ea PO BID 02/20/16 Pantoprazole Sodium [Protonix] 40 mg PO DAILY 02/20/16 meloxicam 15 mg tablet 15 mg PO QDAY 03/08/17 venlafaxine ER 75 mg capsule,extended release 24 hr 75 mg PO QDAY #90 cap 05/26/18 Cetirizine HCl [Zyrtec] 10 mg PO DAILY 10/22/18 Hydrochlorothiazide [Hctz] 12.5 mg PO QAM #1 tab 10/23/18 Lisinopril 40 mg PO DAILY #30 tab 10/23/18 Following Prescrptions Were Given to Patient: Hydrochlorothiazide [Hctz] 12.5 mg PO QAM #1 tab Lisinopril 40 mg PO DAILY #30 tab Transmission Status: Received by [facility]/pharmacy #[id number] Primary Care Physician: Buddy Hui MD [Primary Care Provider] - Please follow up with your Primary Care Physician in: IN 2 WEEKS Disposition: Home Minutes spent on discharge:: 30 Patient Condition:: Stable Medical Necessity - Tobacco Use Smoking Status: Current every day smoker Tobacco Use: Cigarettes Meaningful Use Info Meaningful Use Diagnoses (Choose all that apply): None applicable Code Visit OBSV E&M: 73824 Observation care discharge
== END 2018-10-23 12:00 | disposition home or self-care (01) ==
LOC: ED 22:52 → PCU 10-23 01:34
PROVIDERS: Admitting Provider Hospitalist; Emergency Provider Emergency Medicine; Family Provider Family Medicine; PCP Family Medicine; Visit Provider Internal Medicine
DX: R07.89 Other chest pain (principal); I10 Essential (primary) hypertension; K21.9 Gastro-esophageal reflux disease without esophagitis; E87.6 Hypokalemia; E78.5 Hyperlipidemia, unspecified; R06.02 Shortness of breath; F17.210 Nicotine dependence, cigarettes, uncomplicated; R73.9 Hyperglycemia, unspecified; R94.31 Abnormal electrocardiogram [ECG] [EKG]; E66.01 Morbid (severe) obesity due to excess calories; Z82.49 Family history of ischemic heart disease and other diseases of the circulatory system; Z79.899 Other long term (current) drug therapy; Z68.41 Body mass index [BMI] 40.0-44.9, adult; Z71.3 Dietary counseling and surveillance; Z79.82 Long term (current) use of aspirin
CPT/HCPCS: 36415; 71045; 78452; 80048; 80061; 83036; 83735; 84484; 85025; 93005; 93017; 99218; 99285; A9500; J7050; A4216; G0378; J2785

== ENCOUNTER → 2019-07-05 15:00 | Outpatient (CLI) | payer BC, SELFPAY ==
[2018-10-23 01:21] VITALS: BMI 43.9
[2019-07-05 14:39] VITALS: BMI 43.9
--- NOTE | 2019-07-05 15:01 | BI_ITS ---
MAMMOGRAPHY - BILATERAL SCREENING REASON FOR EXAM: Female, 49 years old. Routine annual screening examination. PERTINENT HISTORY: Non-contributory. TECHNIQUE: Digital bilateral breast jaymie (3D mammographic acquisition) in the CC and MLO projections. 2-D mediolateral oblique (MLO) and craniocaudad (CC) views of both breasts were obtained. CAD: Full Field Digital Mammography with Computer Added Detection was performed. COMPARISON: Comparison is made with prior examination dated April 25, 2018 and April 01, 2017. FINDINGS: Breast Composition: There are scattered areas of fibroglandular density. There are no dominant masses or suspicious calcifications. Stable partially calcified nodules in the upper medial aspect of the left breast. Stable 8 mm well-defined nodule in the upper lateral aspect of the No other significant abnormalities are identified. There has been no significant change since the prior study. BI/SCREEN MAMM (CAD) W/JAYMIE BILAT IMPRESSION: Stable bilateral screening mammogram. Yearly follow-up mammogram recommended. (A) ASSESSMENT CATEGORY: BIRADS Category 2: Benign. A letter regarding these results will be sent to the patient by the facility within 30 days. Approximately 10% of breast cancers are not detected by mammography. A normal mammogram should not delay biopsy of a clinically suspicious abnormality. [id number] Electronically Signed: Thanh Bray, at 15:57 EDT , Service support ,
== END ==
PROVIDERS: PCP Family Medicine; Referring Provider Obstetrics & Gynecology; Visit Provider Obstetrics & Gynecology
DX: Z12.31 Encounter for screening mammogram for malignant neoplasm of breast (principal)
CPT/HCPCS: 77063; 77067

== ENCOUNTER 2020-04-30 05:46 | Day surgery (SDC) | payer BC, SELFPAY ==
[2019-07-05 14:39] VITALS: BMI 43.9
--- NOTE | 2020-04-25 12:42 | HP.PCM_ITS ---
History and Physical History and Physical [facility] Patient Name: Malik Rhoades : 1970 From: PHILIP ALTAMIRANO PA-C DATE OF SURGERY: 04/02/2020 SCHEDULED PROCEDURE: right knee arthroscopy with partial medial meniscectomy and chondroplasty HISTORY OF PRESENT ILLNESS: Preoperative history and physical exam was performed on April 25, 2020. This is a 49-year-old female who presents today for MRI results of her right knee. Patient has had ongoing pain in bilateral knees since a fall on March 15, 2020 in which she landed on bilateral knees twisting the knee. Her right knee has always been worse than the left knee. Patient continues to get catching sensation in the right knee. Patient also states she is having difficult time sleeping due to the pain. She has been using meloxicam with minimal relief. Her pain is primarily over the medial aspect of the knee on the right knee. Her pain is been constant, dull, aching, sharp, stabbing. Pain is increased with going up and down stairs, walking, and standing. MRI did reveal a medial meniscus tear. She is also had previous left knee arthroscopy for medial meniscectomy in 2013. She also continues to complain of left hip pain that she does wish to see Dr. Johnny Sen again. She was initially scheduled and referred to see Dr. Ruth but was not able to do this appointment. On the hip MRI it did reveal incidental finding and patient did have to undergo a hysterectomy which she never saw the specialist for the hip. Patient does have medical history pertinent for hypertension, acid reflux, and diabetes. We will undergo preoperative lab work and EKG. After failing conservative measures and discussing all treatment options, Patient does wish to proceed with a right knee arthroscopy with partial medial meniscectomy and chondroplasty. REVIEW OF SYSTEMS: ROS: Const: Denies anorexia, change in appetite, fever, hard of hearing, vision problems and weight change. CV: Denies chest pain, heart murmur, irregular heartbeat and peripheral vascular disease. Resp: Denies asthma, cough, pneumonia, sleep apnea, SOB, tuberculosis and wheezing. GI: Denies constipation, diarrhea, difficulty swallowing, heartburn, nausea, bloody stools and vomiting. : Genital:more than 3 mo. without period Urinary: denies incontinence. Musculo: Reports leg swelling, limp, trouble walking and weakness. Skin: Reports tattoo, but denies Raynaud's and history of shingles. Neuro: Denies ambulatory dysfunction, dizziness, numbness/tingling and tremor. Psych: Denies anxiety, depression, insomnia, mental illness and stress. Onel/Lymph: Denies anemia, bleeding/bruising tendency and past transfusion. Reviewed, no changes. PAST MEDICAL HISTORY: Advance Care Plan: No Advance Directives Effective Date: 03/17/2020 PMH: Medical Problems: High Blood Pressure, Acid Reflux Covid-19 - (11/2019) Hypercholesterolemia, Diabetes Accidents: LT Knee Twisted - GOLF Surgical Hx: Laproscopic-Endometrosis - (1995) Knee Arthroscopy LT - (11/22/2013) [facility] JWG RT Foot Planter - @[facility] Hysterectomy - (2014) Anesthesia Complications: None Assistive Devices: Glasses Reviewed and updated. 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 Personal Habits: Tobacco Use: Patient is a former smoker.Cigarette Use: Fo rmer.Alcohol: Occasionally.Drug Use: Denies Use.Enjoy Exercising: Exercises 1-3 X/Week. Reviewed, no changes. VITALS: Ht: 67 Wt: 280lb Wt k.008 BMI: 43.8 BP: 160/92 Pulse: 76 Resp: 14 T: 97.0 T: 36.1C Pain Level: 3 ALLERGIES: Sulfa Codeine Contrast Dye MEDICATIONS: [place]illan 5-325 mg 1-2 by mouth every 6 hour as needed pain, Meloxicam 15 mg 1 by mouth every day, Simvastatin 5 mg daily, Aspirin 81 mg 1 by mouth every day, Calcium 600 600 mg 1 by mouth a day, Vitamin D 1000 Units daily, Protonix 40 mg 1 tab PO daily, HZTZ 1 in the morning, Losartan 100 mg 1 in morning, Effexor XR 37.5 mg 1 @ night, Metformin HCL 2 X A day PRE-OP EXAM: General appearance:NORMAL Other: Eyes: Conjunctivae and lids: NORMAL Pupils: ERR Ears, Nose, Mouth, and Throat: NORMAL Other: Inspection of lips, teeth and gums: NORMAL Other: Neck: Examination of neck: no masses noted. Respiratory: Assessment of respiratory effort: NORMAL Other: Auscultation of lungs: clear to auscultation no wheezes, rhonchi or rales. Cardiovascular: Auscultation of heart: regular rate and rhythm, no murmurs, gallops or rubs. Exam of carotid arteries: NORMAL Other: Gastrointestinal: Exam of abdomen: soft, nontender, nondistended bowel sounds present. PHYSICAL EXAMINATION: On exam patient does walk with an antalgic gait. Right knee is cool to touch without erythema or signs of infection. Tenderness to palpation along the medial joint line. Positive Devora's examination which does reproduce pain on exam. Negative anterior/posterior drawer, negative varus/valgus stress test. Range of motion: 0 extension 120 flexion with pain. IMAGING STUDIES: Previous x-rays of the right knee reveal narrowing of the medial compartment with trace osteophyte off the medial tibial plateau. Overall well-maintained lateral compartment. MRI was reviewed from [facility] [place] on April 21, 2020 of the right knee which did reveal a posterior horn medial meniscus tear with chondromalacia primarily in the medial compartment. The details see MRI report IMPRESSION: 1. Right knee medial meniscus tear 2. Right knee osteoarthritis 3. Hypertension 4. Diabetes 5. Hypercholesterolemia 6. Gastroesophageal reflux disease 7. Morbid obesity with BMI 43.8 PLAN: I did discuss and review with the patient all treatment options including surgical versus nonsurgical options. Patient does wish to proceed with the above-stated procedure. Potential risks, benefits, and complications of the procedure were discussed in detail including but not limited to , infection, nerve and blood vessel damage, persistent pain, numbness, tingling, paresthesias, blood clot, pulmonary embolism, and requirement for possible further surgery. The patient expressed full understanding and has no further questions for the doctor. Patient does agree to proceed with the above-stated procedure and has signed the surgery consent form. We discussed the current risks associated with COVID 19. This does include the risk of exposure while in the hospital. Patient was reassured local hospitals have low infection rates and are taking all necessary precautions to avoid exposure to patients. In addition, we discussed strategies that can be used to help limit exposure including those that limit the patient's time in the hospital. Also using strategies to limit the patient's need for continued inpatient services after being discharged from the hospital. Patient was notified that we will need to comply with any screening or testing the hospital wishes to perform or that surgery may be delayed for any positive results. This dictation was created using voice recognition software. Phonetic and/or grammatical errors may exist. ___ I have re-examined the patient. There are no clinical changes since date of exam. ___ See progress notes for changes. ___ Dictated on admission Date: Time: Signature:
--- NOTE | 2020-04-29 08:27 | EKG12_ITS ---
Test Reason : PREOP Blood Pressure : / mmHG Vent. Rate : 089 BPM Atrial Rate : 089 BPM P-R Int : 118 ms QRS Dur : 088 ms QT Int : 372 ms P-R-T Axes : 040 054 077 degrees QTc Int : 452 ms Normal sinus rhythm Poor R wave progression Confirmed by TRACY HARTMANN, KATHYA ([id number]), supervising editor trailer VIKA PITTS ([id number]) on 04/30/2020 8:59:16 AM Referred By: Johnny Sen Confirmed By:KATHYA MOLINA MD
[2020-04-29 09:40] LABS: Hematocrit 42.4 % (37-47); Hemoglobin 13.6 g/dL (12.0-15.0); Mean Corp Hgb Conc 32.1 g/dL (32-36); Mean Corpuscular Volume 93.4 fL (81-99); Mean Platelet Vol. 10.8 fl (6.2-12.0); Platelet Count 284 K/mm3 (150-450); RBC Distribution Width CV 12.9 % (11.6-14.6); Red Blood Count 4.54 M/mm3 (4.2-5.4); White Blood Count 8.1 K/mm3 (4.4-11.0)
[2020-04-29 10:08] LABS: Anion Gap 6 (5-15); BUN 16 mg/dL (7-18); BUN/Creat Ratio 24.8 RATIO (10-20); Calcium,Total 8.9 mg/dL (8.5-10.1); Chloride 105 mmol/L (98-107); Creatinine, Serum 0.64 mg/dL (0.55-1.02); EST Glomerular Filtration Rate 103 mL/min (>60); Est Glom Filt Rate - Afr Amer 124 mL/min (>60); Glucose 124 mg/dL (74-106); Sodium Level 142 mmol/L (136-145)
[2020-04-29 10:11] LABS: Hemoglobin A1c 5.9 % (3.8-5.6)
[2020-04-30] VITALS (9 sets, daily range): BP systolic 136–160; BP diastolic 78–92; PULSE 77–106; RESP 14–18; TEMP 36.2–36.9; O2SAT 92–100; BMI 44.6
[2020-04-30] MEDS: Lactated Ringers 1,000 ML 100 ML IV ×2 (06:33→08:00)
[2020-04-30] MEDS: Epinephrine (1 mg/ml) 1 MG/ML VIAL (06:44)
[2020-04-30 07:15] LABS: Bedside Glucose 124 mg/dL (70-110)
[2020-04-30] MEDS: Bupiv/Epi 0.5% Mpf 30 ML Vial (07:34)
--- NOTE | 2020-04-30 07:55 | PCM.OPRPT ---
Report of Operation Date of Procedure: 04/30/20 Pre-Operative Diagnosis: Right knee medial meniscus tear. Right knee medial compartment chondromalacia Post-Operative Diagnosis: Right knee medial meniscus tear. Right knee medial compartment chondromalacia Surgery/Procedure Performed:: Right knee arthroscopic. 1 medial meniscectomy. 2 medial compartment chondroplasty Description of Surgical Findings:: See operative report radiochemical technician: None Type of Anesthesia:: General Anesthesiologist: Madhu Shin Special Medications: Ancef Estimated Blood Loss (mL): 5 Fluids Replaced: 1000 milliliters crystalloid Description of Procedure: On the date of the procedure, the patient's right lower extremity was marked in the preoperative area. Patient was brought back to the operating room where they were transferred to the bed. Anesthesia assumed control of the C-spine airway and administered anesthetic. All bony prominences were identified and well-padded and the right leg was placed in the arthroscopic leg hill. The contralateral leg was then draped over the bed and well-padded. There was padding underneath both sciatic nerves. The foot of the bed was then dropped and the right leg was prepped in a sterile fashion. The surgeon then scrubbed. Upon reentering the room, the operative leg was draped in a standard orthopedic fashion. A timeout was called, everyone agreed upon the side, the site, the procedure to be performed, patient's identity and antibiotics given. Incisions were marked out for the medial and lateral infrapatellar portals. Esmarch bandage was then used to exsanguinate the leg and tourniquet was placed at 250 mmHg. At this time, the lateral portal incision was made in a vertical fashion. The trocar was placed into the joint. The camera was then placed and the patellofemoral joint was visualized. The patella did appear to have minimal chondral changes. The trochlea appeared to have minimal chondral changes. We then directed our attention to the medial gutter where there was no foreign body. Then directed our attention to the medial joint compartment. There were overall grade 1 chondral changes on the medial distal femur with 1 small central area on the weightbearing surface of a grade 3 lesion, grade 1 chondral changes on the medial tibial plateau. The medial meniscus had a horn root tear.. The medial portal was then placed under direct visualization using a spinal needle an 11 blade scalpel. Once this was done a probe was placed in the joint and the meniscus was probed finding a radial tear off the capsule posteriorly. The biters and kerrie were then used sequentially to debriding get rid of any free edges that could be a source of pain and catching in the meniscus tear. Once we felt medial meniscus tear was adequately debrided, we again visualized the joint and noted the meniscus tear was adequately debrided. Attention was then turned towards the notch where the anterior cruciate ligament was intact. PCL was visualized and appeared intact. Attention was then directed towards the lateral compartment where the lateral distal femur had minimal chondral changes, the lateral proximal tibia had minimal chondral changes. The lateral meniscus had tearing. We then directed our attention to the lateral gutter, which was visualized and no free bodies were noted. At this time the wound was copiously irrigated out with normal saline with epinephrine. The wound was closed with 4-0 nylon.. Xeroform was placed over the incision. Sterile dressing was placed. Compressive dressing was placed. Tourniquet was let down. For that there was then placed up. Patient was awakened by anesthesia patient was transferred to the PACU for recovery in stable condition. Postoperative plan: Patient will be made weight-bear as tolerated. Return to activities as tolerated. He will come to the office in 2 weeks for postoperative wound check and suture removal. If he is doing well that time he can follow-up as needed. - Complications No intraoperative complications - Admit VTE Documentation VTE Present on Admission: No VTE Mechan Device Prophylaxis: SCD's VTE Pharm Prophylaxis ordered?: Yes
[2020-04-30] MEDS: Ketorolac 15 MG/ML Vial IV (08:22)
[2020-04-30 08:30] LABS: Bedside Glucose 120 mg/dL (70-110)
[2020-04-30] MEDS: HYDROcodone Bitartrate/Apap 5/325 Tablet PO (09:56)
== END 2020-04-30 10:45 | disposition home or self-care (01) ==
LOC: SDC 05:47 → AC 05:47
PROVIDERS: PCP Family Medicine; Referring Provider Specialist; Visit Provider Specialist
PROC: (CPT 29870; principal; 2020-04-30 06:55)
DX: S83.241A Other tear of medial meniscus, current injury, right knee, initial encounter (principal); M17.11 Unilateral primary osteoarthritis, right knee; M94.261 Chondromalacia, right knee; I10 Essential (primary) hypertension; E11.9 Type 2 diabetes mellitus without complications; E78.00 Pure hypercholesterolemia, unspecified; K21.9 Gastro-esophageal reflux disease without esophagitis; E66.01 Morbid (severe) obesity due to excess calories; Z68.41 Body mass index [BMI] 40.0-44.9, adult; Z79.84 Long term (current) use of oral hypoglycemic drugs; Z87.891 Personal history of nicotine dependence; Z79.899 Other long term (current) drug therapy; Z20.828 Contact with and (suspected) exposure to other viral communicable diseases; Z79.82 Long term (current) use of aspirin
CPT/HCPCS: 29881; 64447; 36415; 80048; 82962; 83036; 85027; 87426; 93005; C9803; J7120; J2405

== ENCOUNTER → 2020-07-07 12:07 | Outpatient (CLI) | payer BC, SELFPAY ==
[2019-07-05 14:39] VITALS: BMI 43.9
[2020-04-30 06:23] VITALS: BMI 44.6
--- NOTE | 2020-07-07 12:09 | BI_ITS ---
MAMMOGRAPHY - BILATERAL SCREENING REASON FOR EXAM: Female, 50 years old. Routine annual screening examination. PERTINENT HISTORY: Non-contributory. TECHNIQUE: Digital bilateral breast jaymie (3D mammographic acquisition) in the CC and MLO projections. 2-D mediolateral oblique (MLO) and craniocaudad (CC) views of both breasts were obtained. CAD: Full Field Digital Mammography with Computer Added Detection was performed. COMPARISON: Comparison is made with prior study dated 07/05/2019 and 09/22/2018. FINDINGS: Breast Composition: There are scattered areas of fibroglandular density. There are no dominant masses or suspicious calcifications. Stable partially calcified nodules are seen in the upper medial aspect of the left breast. Stable 6 mm well-defined nodule in the upper lateral aspect of the right breast. Stable benign-appearing bilateral axillary lymph nodes. No other significant abnormalities are identified. There has been no significant change since the prior study. BI/SCRN MAMM (CAD)W/JAYMIE BILAT IMPRESSION: Stable bilateral screening mammogram. Yearly follow-up mammogram recommended. (A) ASSESSMENT CATEGORY: BIRADS Category 2: Benign. A letter regarding these results will be sent to the patient by the facility within 30 days. Approximately 10% of breast cancers are not detected by mammography. A normal mammogram should not delay biopsy of a clinically suspicious abnormality. [id number] Electronically Signed: Thanh Bray MD at 14:19 EDT , Service support ,
== END ==
PROVIDERS: PCP Family Medicine; Referring Provider Obstetrics & Gynecology; Visit Provider Obstetrics & Gynecology
DX: Z12.31 Encounter for screening mammogram for malignant neoplasm of breast (principal)
CPT/HCPCS: 77063; 77067

== ENCOUNTER 2021-05-11 15:48 | Emergency (ER) | payer BC, SELFPAY ==
[2021-05-11 15:50] VITALS: BP 164/100; PULSE 80; RESP 17; TEMP 37.4; O2SAT 97; BMI 45.3
--- NOTE | 2021-05-11 16:33 | US_ITS ---
STUDY: ABDOMINAL ULTRASOUND - RIGHT UPPER QUADRANT REASON FOR VISIT: Female, 50 years old PAIN RUQ, nausea TECHNIQUE: Ultrasound evaluation of the right upper quadrant was performed with real-time and static madden-scale imaging. TECHNICAL QUALITY: Adequate. COMPARISON: None. FINDINGS: Liver: The liver measures 21 cm. There is increased echogenicity consistent with fatty infiltration. The bile ducts are within normal limits. There is hepatic color flow. The direction of portal flow is hepatopetal. There is no demonstrated mass lesion. Gallbladder: Normal distended gallbladder. The gallbladder wall measures 2.8 mm. There is a negative sonographic Collins''s sign. There is no pericholecystic fluid. There are no gallstones. Common Bile Duct (C.B.D.): The common bile duct measures 4.4 mm. Pancreas: Normal size of the head, body and tail of the pancreas. There is increased echogenicity of the pancreas. There is no demonstrated pancreatic mass or cyst. Right Kidney: Normal size of the right kidney. The right kidney measures 11.3 x 5.4 x 5.1 cm. Normal renal cortex. The right cortex measures 1.5 cm. There is no demonstrated renal mass or cyst. There is no right hydronephrosis. US/Gallbladder IMPRESSION: Hepatomegaly with diffuse fatty infiltration of the liver, no discrete lesion Nonspecific echogenic pancreas Electronically Signed: Behzad Welch MD at 18:09 EDT ,
--- NOTE | 2021-05-11 16:35 | ED.VIS.GI ---
HPI HPI - GI History of Present Illness Chief Complaint: Abd Pain Informant: patient Abdominal Pain/Flank Pain Onset: Days (3) Context: Gradual Onset Timing: Intermittent (Seems to be after meals) and Waxes and wanes Quality: Sharp Location: RUQ Current Severity: Moderate Maximum Severity: Moderate Worsened by: Food, Movement and - (Deep breathing) Relieved by: Nothing Nausea/Vomiting/Emesis GI Symptom: Positive for Nausea; Negative for Vomiting Diarrhea/Melena/Hematochezia GI Symptom: Positive for Diarrhea Onset: Today Stool Quality: Positive for Loose; Negative for Black and BRB per rectum Severity: Mild Associated Symptoms Associated Symptoms: Negative for Dysuria, Frequency, Hematuria and Urgency Narrative Narrative: Patient points to right upper quadrant/right inframammary area behind the ribs where she is having sharp pains that have been intermittent after meals last few days, today the pain is more persistent, was worse after she ate cottage cheese one meal and a muffin during another meal. It has been colicky. Occasionally she felt it in her right upper back, once in her shoulder but that went away. No fevers, chills, jaundice, itching. Prior hysterectomy no other abdominal surgeries. States it hurts more to breathe but she does not feel short of breath, no coughing or fevers. [facility] Medical History (Updated 05/11/21 @ 19:[address] Manuel Kwan MD) Endometriosis Hyperlipidemia Hypertension Home Medications aspirin 81 mg PO DAILY@0800 06/05/13 [History Last Taken 02/15/16] cholecalciferol (vitamin D3) 1,000 unit PO DAILY 06/05/13 [History Last Taken Unknown] simvastatin 5 mg PO QHS 06/05/13 [History Last Taken Unknown] calcium carbonate 300 mg PO BID 02/20/16 [History Last Taken Unknown] glucosamine sulf-chondroitinSA 1 ea PO BID 02/20/16 [History Last Taken Unknown] pantoprazole 40 mg PO DAILY 02/20/16 [History Last Taken 04/30/20 05:00] cetirizine 10 mg PO DAILY PRN 10/22/18 [History Last Taken Unknown] hydrochlorothiazide 12.5 mg PO QAM #1 tab 10/23/18 [Rx Last Taken Unknown] losartan 100 mg tablet 100 mg PO DAILY 07/05/19 [History Last Taken 04/30/20 05:00] metformin 500 mg PO BID 04/28/20 [History Last Taken Unknown] venlafaxine 75 mg capsule,extended release 24 hr 75 mg PO QDAY #90 cap 07/07/20 [Rx Last Taken Unknown] Allergy/AdvReac Type Severity Reaction Status Date / Time codeine Allergy Anaphylaxis Verified 05/11/21 15:49 shellfish derived Allergy Nausea/Vom/ Verified 05/11/21 15:49 Diarrhea strawberry Allergy Hives Verified 05/11/21 15:49 Sulfa (Sulfonamide Allergy Anaphylaxis Verified 05/11/21 15:49 Antibiotics) pineapple [Pineapple] AdvReac Nausea/Vom/ Verified 05/11/21 15:49 Diarrhea IVP DYE Allergy Anaphylaxis Uncoded 05/11/21 15:49 cherries AdvReac Nausea/Vom/ Uncoded 05/11/21 15:49 Diarrhea squash AdvReac Nausea/Vom/ Uncoded 05/11/21 15:49 Diarrhea walnuts AdvReac Nausea/Vom/ Uncoded 05/11/21 15:49 Diarrhea Family History Father Myocardial infarction Hypertension Mother Heart disease Hypertension Grandmother Heart disease Hypertension Surgical History H/O laparoscopy H/O: hysterectomy History of lateral meniscus repair of left knee Plantar fascia syndrome Social History Smoking Status: Former smoker alcohol intake: current details: social substance use type: does not use caffeine: Yes frequency: 3-4 times per week seatbelt use: always do you feel safe at home: Yes additional social history: seperated ROS ROS ED Constitutional Constitutional ED: Denies chills or fever(s) Eyes Eyes: Denies change in vision or diplopia ENT ENT ED: Denies rhinorrhea or sore throat Cardiovascular Cardiovascular: Denies chest pain or palpitations Respiratory/Chest Respiratory/Chest: Denies cough or dyspnea Gastrointestinal Gastrointestinal: Reports as per HPI, abdominal pain, diarrhea and nausea; Denies vomiting Genitourinary Genitourinary ED: Denies dysuria or hematuria Musculoskeletal Musculoskeletal: Reports as per HPI and back pain; Denies neck pain Integumentary Denies abscess or rash Neurologic Neurologic: Denies headache(s), paresthesias or weakness Psychiatric Psychiatric: Denies anxiety or suicidal thoughts EXAM Physical Exam Const Vital Signs: 05/11/21 15:50 05/11/21 19:26 Temperature 99.4 F H Temperature Source Temporal Pulse Rate 80 72 Respiratory Rate 17 16 Blood Pressure 164/100 H 134/81 H Blood Pressure Mean 121 98 Pulse Ox 97 98 Oxygen Delivery Method Room Air Room Air Positive well nourished and well developed General Appearance ED: well developed and NAD Nutritional Appearance: morbidly obese HEENT Reports moist mucous membranes normocephalic and atraumatic Eyes PERRL and EOMs intact bilaterally Neck full ROM and supple Resp normal respiratory effort and clear to auscultation bilaterally Cardio regular rate, regular rhythm and no murmurs GI non-distended GI Narrative: Tender in right upper quadrant with an equivocal Collins's sign, patient states pain is much worse but she does not splint with it. No rebound tenderness anywhere and no other areas of tenderness. Auscultation: normoactive bowel sounds Palpation: soft Back/Spine no CVA tenderness General Back: other FROM Extremity normal to inspection General Extremety ED: Negative for edema, pulses abnormal or tenderness General Extremity: Negative for edema or pulses abnormal Neuro oriented x3, CN's II-XII intact bilaterally and no sensory deficits noted Sensorium / Orientation: awake and alert Motor Exam: strength 5/5 throughout Skin no rashes or lesions noted and no wounds MDM MDM MDM Narrative Medical decision making narrative: Patient's age and obesity as well as the quality and location of the symptoms make biliary colic the most likely cause of her symptoms. Therefore in addition to a gallbladder work-up, chest x-ray was obtained. The chest x-ray 2 views of my interpretation is negative for any acute, radiology in agreement. The rest of the work-up is normal including the ultrasound. Since she is too old to use the PERC score, I added a D-dimer, although biliary colic is still in the differential even though the patient does not have gallstones or acute cholecystitis. The D-dimer returned negative. On reevaluation, the patient is pain-free after treatment. We discussed the likelihood this is biliary colic, and she may need a HIDA scan if she continues to have symptoms. Recommend low-fat diet in the meantime, and I will have her follow-up with surgery. Lab Data Attestation: I reviewed the patient's lab results. Labs: Laboratory Results - last 24 hr 05/11/21 05/11/21 05/11/21 16:30 16:30 16:30 WBC 7.8 RBC 4.18 L Hgb 13.0 Hct 38.1 MCV 91.1 MCH 31.1 MCHC 34.1 RDW Std Deviation 41.6 RDW Coeff of Delia 12.6 Plt Count 268 MPV 10.7 Immature Gran % (Auto) 0.100 Neut % (Auto) 64.7 Lymph % (Auto) 26.1 [place] % (Auto) 6.9 Eos % (Auto) 1.8 Baso % (Auto) 0.4 Absolute Neuts (auto) 5.0 Absolute Lymphs (auto) 2.03 Nucleated RBC % 0 D-Dimer Quant (PE/DVT) Sodium 139 Potassium 3.7 Chloride 106 Carbon Dioxide 27.0 Anion Gap 6 BUN 12 Creatinine 0.66 Estim Creat Clear Calc 96.96 Est GFR (MDRD) Af Amer 120 Est GFR (MDRD) Non-Af 99 BUN/Creatinine Ratio 18.1 Glucose 128 H Calcium 9.2 Total Bilirubin 0.20 AST 14 L ALT 30 Alkaline Phosphatase 109 Total Protein 7.0 Albumin 3.7 Globulin 3.3 Albumin/Globulin Ratio 1.1 Lipase 116 Urine Color Yellow Urine Clarity Clear Urine pH 6.0 Ur Specific [place] 1.015 Urine Protein Negative Urine Glucose (UA) Normal Urine Ketones Negative Urine Occult Blood Negative Urine Nitrite Negative Urine Bilirubin Negative Urine Urobilinogen Normal Ur Leukocyte Esterase Negative Urine RBC 0 SEEN Urine WBC 0 SEEN Ur Squamous Epith Cells 0-5 SEEN Urine Bacteria 0 SEEN Urine Mucus 0 SEEN 05/11/21 16:30 WBC RBC Hgb Hct MCV MCH MCHC RDW Std Deviation RDW Coeff of Delia Plt Count MPV Immature Gran % (Auto) Neut % (Auto) Lymph % (Auto) [place] % (Auto) Eos % (Auto) Baso % (Auto) Absolute Neuts (auto) Absolute Lymphs (auto) Nucleated RBC % D-Dimer Quant (PE/DVT) < 0.27 L Sodium Potassium Chloride Carbon Dioxide Anion Gap BUN Creatinine Estim Creat Clear Calc Est GFR (MDRD) Af Amer Est GFR (MDRD) Non-Af BUN/Creatinine Ratio Glucose Calcium Total Bilirubin AST ALT Alkaline Phosphatase Total Protein Albumin Globulin Albumin/Globulin Ratio Lipase Urine Color Urine Clarity Urine pH Ur Specific [place] Urine Protein Urine Glucose (UA) Urine Ketones Urine Occult Blood Urine Nitrite Urine Bilirubin Urine Urobilinogen Ur Leukocyte Esterase Urine RBC Urine WBC Ur Squamous Epith Cells Urine Bacteria Urine Mucus Radiography Diagnostic Testing: Clinical Impression(s) from Imaging Studies Gallbladder Ultrasound 05/11/21 16:33 IMPRESSION: Hepatomegaly with diffuse fatty infiltration of the liver, no discrete lesion Nonspecific echogenic pancreas Electronically Signed: Behzad Welch MD at 18:09 EDT Reading Location ID and State: [facility] / [place] , Service support , Chest X-Ray 05/11/21 17:14 IMPRESSION: Normal x-ray examination of the chest. Electronically Signed: Behzad Welch MD at 17:46 EDT , Discharge Plan Triage Chief Complaint: Abd Pain ED Provider: Manuel Kwan Dx/Rx/DC Orders Clinical Impression: Intermittent right upper quadrant abdominal pain Instructions: ED Abdominal Pain Gallstone Poss Prescriptions: No Action losartan 100 mg tablet 100 mg PO DAILY RF: 0 venlafaxine 75 mg capsule,extended release 24hr 75 mg PO QDAY Qty: 90 RF: 4 simvastatin 5 MG tablet 5 mg PO QHS RF: 0 aspirin 81 MG tablet,chewable 81 mg PO DAILY@0800 RF: 0 cholecalciferol (vitamin D3) 1,000 UNIT capsule 1,000 unit PO DAILY RF: 0 calcium carbonate 600 MG tablet 300 mg PO BID RF: 0 glucosamine sulf-chondroitinSA 1 EACH capsule 1 ea PO BID RF: 0 pantoprazole 40 MG tablet 40 mg PO DAILY RF: 0 cetirizine 10 MG capsule 10 mg PO DAILY PRN (Reason: Allergies) RF: 0 hydrochlorothiazide 25 MG tablet 12.5 mg PO QAM Qty: 1 RF: 0 metformin 500 MG tablet extended release 24 hr 500 mg PO BID RF: 0 Primary Care Provider: Buddy Hui Referrals: Buddy Hui MD [Primary Care Provider] - Kiran Schmidt MD [STAFF PHYSICIAN] - (Call for appointment for further evaluation of right upper quadrant pain that may be gallbladder in nature; you may need to be set up for a HIDA scan after being seen) Disposition Disposition: Home, Self Care
[2021-05-11 16:52] LABS: Bacteria 0 SEEN /hpf (None Seen); Mucous, Urine 0 SEEN /hpf (<or=2+); Red Blood Cells-Urine 0 SEEN /hpf (0-5); White Blood Cells 0 SEEN /hpf (0-5)
[2021-05-11 16:57] LABS: Color, Urine Yellow (Yellow); Glucose, Dipstick Normal (Normal); Ketone-Dipstick Negative (Negative); Leukocyte Esterase-Dipstick Negative /ul (Negative); Nitrite-Dipstick Negative (Negative); Occult Blood-Urine Negative /ul (Negative); Protein-Dipstick Negative (Negative); Specific Gravity, Urine 1.015 (1.002-1.030); Urine Bilirubin Dipstick Negative (Negative); Urine Clarity Clear (Clear); Urine Urobilinogen Normal (Normal)
[2021-05-11 17:06] LABS: Absolute Lymphocyte Count 2.03 X10^3/uL (0.83-4.51); Basophil# 0.03 X10^3/uL; Basophil% 0.4 % (0-1); Eosinophil# 0.14 X10^3/uL; Eosinophils% 1.8 % (0-5); Hematocrit 38.1 % (37-47); Lymphocyte # 2.03 X10^3/ul (0.83-4.51); Lymphocyte % 26.1 % (19-41); Mean Corp Hgb Conc 34.1 g/dL (32-36); Mean Corpuscular Hgb 31.1 pg (27.0-32.0); Mean Corpuscular Volume 91.1 fL (81-99); Mean Platelet Vol. 10.7 fl (6.2-12.0); Monocyte# 0.54 X10^3/uL; Monocyte% 6.9 % (0-10); NRBC Flagged by Analyzer 0 % (0-5); Neutrophil # 5.03 X10^3/uL (2.7-7.7); Neutrophil % 64.7 % (47-70); Platelet Count 268 K/mm3 (150-450); RBC Distribution Width CV 12.6 % (11.6-14.6); RBC Distribution Width SD 41.6 fl (35.1-43.9); Red Blood Count 4.18 M/mm3 (4.2-5.4); White Blood Count 7.8 K/mm3 (4.4-11.0)
[2021-05-11 17:12] LABS: Squamous Epithelial Cells - UA 0-5 SEEN /hpf (5-10)
--- NOTE | 2021-05-11 17:14 | RAD_ITS ---
STUDY: X-RAY CHEST REASON FOR EXAM: Female, 50 years old. Atypical chest pain TECHNIQUE: PA and lateral views of the chest. COMPARISON: 10/22/2018 FINDINGS: The lungs are clear and expanded. There is no demonstrated pleural abnormality. Normal size heart. Normal mediastinum and sindy. Normal visualized pulmonary arteries. Normal visualized aortic arch and descending thoracic aorta. Normal visualized thoracic spine. Normal visualized ribs, clavicles, and shoulders. There is no demonstrated abnormality of the visualized soft tissue structures of the upper abdomen. RAD/Chest PA and Lateral IMPRESSION: Normal x-ray examination of the chest. Electronically Signed: Behzad Welch MD at 17:46 EDT ,
[2021-05-11 17:16] LABS: ALB/GLOB Ratio 1.1 RATIO (0.9-2.4); AST(SGOT) 14 U/L (15-37); Alanine Aminotransfer ALT/SGPT 30 U/L (13-56); Albumin, Serum 3.7 g/dL (3.2-5.0); Alkaline Phosphatase 109 U/L (45-117); Anion Gap 6 (5-15); BUN 12 mg/dL (7-18); BUN/Creat Ratio 18.1 RATIO (10-20); Calcium,Total 9.2 mg/dL (8.5-10.1); Chloride 106 mmol/L (98-107); Creatinine, Serum 0.66 mg/dL (0.55-1.02); EST Glomerular Filtration Rate 99 mL/min (>60); Est Glom Filt Rate - Afr Amer 120 mL/min (>60); Estimated Creatinine Clearance 96.96 ml/min; Globulin 3.3 g/dL (2.2-4.2); Glucose 128 mg/dL (74-106); Lipase 116 U/L (73-393); Potassium 3.7 mmol/L (3.5-5.1); Sodium Level 139 mmol/L (136-145)
[2021-05-11] MEDS: Ondansetron 4 MG/2 ML Vial IV (17:29)
[2021-05-11] MEDS: Ketorolac 15 MG/ML Vial IV (17:31)
[2021-05-11 18:51] LABS: D-Dimer Quantitative (DVT/PE) < 0.27 FEU/ug/m (0.27-0.49)
[2021-05-11 19:26] VITALS: BP 134/81; PULSE 72; RESP 16; O2SAT 98
== END 2021-05-11 19:52 | disposition home or self-care (01) ==
PROVIDERS: Emergency Provider Emergency Medicine; PCP Family Medicine; Visit Provider Emergency Medicine
DX: R10.11 Right upper quadrant pain (principal); E66.01 Morbid (severe) obesity due to excess calories; Z68.42 Body mass index [BMI] 45.0-49.9, adult; I10 Essential (primary) hypertension; E78.5 Hyperlipidemia, unspecified; Z90.710 Acquired absence of both cervix and uterus; Z79.82 Long term (current) use of aspirin; Z79.899 Other long term (current) drug therapy; Z87.891 Personal history of nicotine dependence
CPT/HCPCS: 71046; 76705; 80053; 81001; 83690; 85025; 85379; 96374; 96375; 99283; A4216; J2405

== ENCOUNTER 2021-06-27 10:56 | Emergency (ER) | payer BC, SELFPAY ==
[2021-06-27 10:57] VITALS: BP 182/97; PULSE 84; RESP 14; TEMP 36.4; O2SAT 99; BMI 43.2
--- NOTE | 2021-06-27 11:13 | EX.ED.DYSGE1 ---
HPI History of Present Illness Chief Complaint: Headache Informant: patient Onset/Context/Timing Onset: Today Context: Gradual Onset Current Severity: Mild Maximum Severity: Mild Narrative Narrative: Patient presents secondary to headache and dizziness. Patient states when she woke this morning she had some neck stiffness. She did develop some mild lightheadedness and headache. After try to eat breakfast she vomited. No fever or chills. No cough or congestion. She did have a cortisone injection to the L5-S1 area 8 days ago. She denies any low back pain and felt well until this morning. [facility] Medical History (Updated 06/27/21 @ 12:[address] Tova Peacock MD) Endometriosis Hyperlipidemia Hypertension Home Medications aspirin 81 mg PO DAILY@0800 06/05/13 [History Last Taken 02/15/16] cholecalciferol (vitamin D3) 1,000 unit PO DAILY 06/05/13 [History Last Taken Unknown] simvastatin 5 mg PO QHS 06/05/13 [History Last Taken Unknown] calcium carbonate 300 mg PO BID 02/20/16 [History Last Taken Unknown] glucosamine sulf-chondroitinSA 1 ea PO BID 02/20/16 [History Last Taken Unknown] pantoprazole 40 mg PO DAILY 02/20/16 [History Last Taken 04/30/20 05:00] cetirizine 10 mg PO DAILY PRN 10/22/18 [History Last Taken Unknown] hydrochlorothiazide 12.5 mg PO QAM #1 tab 10/23/18 [Rx Last Taken Unknown] losartan 100 mg tablet 100 mg PO DAILY 07/05/19 [History Last Taken 04/30/20 05:00] metformin 500 mg PO BID 04/28/20 [History Last Taken Unknown] venlafaxine 75 mg capsule,extended release 24 hr 75 mg PO QDAY #90 cap 07/07/20 [Rx Last Taken Unknown] ondansetron 4 mg PO Q8H PRN #10 tab 06/27/21 [Rx Last Taken Unknown] Allergy/AdvReac Type Severity Reaction Status Date / Time codeine Allergy Anaphylaxis Verified 06/27/21 10:59 shellfish derived Allergy Nausea/Vom/ Verified 06/27/21 10:59 Diarrhea strawberry Allergy Hives Verified 06/27/21 10:59 Sulfa (Sulfonamide Allergy Anaphylaxis Verified 06/27/21 10:59 Antibiotics) pineapple [Pineapple] AdvReac Nausea/Vom/ Verified 06/27/21 10:59 Diarrhea IVP DYE Allergy Anaphylaxis Uncoded 06/27/21 10:59 cherries AdvReac Nausea/Vom/ Uncoded 06/27/21 10:59 Diarrhea squash AdvReac Nausea/Vom/ Uncoded 06/27/21 10:59 Diarrhea walnuts AdvReac Nausea/Vom/ Uncoded 06/27/21 10:59 Diarrhea Family History Father Myocardial infarction Hypertension Mother Heart disease Hypertension Grandmother Heart disease Hypertension Surgical History H/O laparoscopy H/O: hysterectomy History of lateral meniscus repair of left knee Plantar fascia syndrome Social History Smoking Status: Former smoker alcohol intake: current details: social substance use type: does not use caffeine: Yes frequency: 3-4 times per week seatbelt use: always do you feel safe at home: Yes additional social history: seperated ROS ROS ED Constitutional Constitutional ED: Denies chills or fever(s) Eyes Eyes: Denies change in vision ENT ENT ED: Denies rhinorrhea or sore throat Cardiovascular Cardiovascular: Denies chest pain or palpitations Respiratory/Chest Respiratory/Chest: Denies cough or dyspnea Gastrointestinal Gastrointestinal: Reports nausea and vomiting; Denies abdominal pain or diarrhea Genitourinary Genitourinary ED: Denies dysuria Musculoskeletal Musculoskeletal: Reports neck pain; Denies back pain Integumentary Denies rash Neurologic Neurologic: Reports headache(s); Denies weakness Allergic/Immunologic Allergic/Immunologic ED: Denies urticaria EXAM Physical Exam Const Vital Signs: 06/27/21 10:57 06/27/21 11:57 Temperature 97.5 F L Temperature Source Temporal Pulse Rate 84 75 Respiratory Rate 14 18 Blood Pressure 182/97 H 152/86 H Blood Pressure Mean 125 108 Pulse Ox 99 99 Oxygen Delivery Method Room Air Room Air Positive well nourished and well developed General Appearance ED: well developed HEENT Reports moist mucous membranes Eyes PERRL and EOMs intact bilaterally Neck supple Neck Narrative: Cervical paraspinal muscle tenderness to palpation. No meningismus. No midline tenderness. Chest Wall inspection of chest normal and palpation of chest normal Resp normal respiratory effort and clear to auscultation bilaterally Cardio regular rate and regular rhythm GI normal to inspection, nondistended, normoactive bowel sounds and non-tender Palpation: soft Extremity normal to inspection Neuro oriented x3 and no sensory deficits noted Sensorium / Orientation: alert Motor Exam: strength 5/5 throughout Psych mental status grossly normal Skin no rashes or lesions noted MDM MDM MDM Narrative Medical decision making narrative: Patient was given Toradol and Zofran along with IV fluids. Lidoderm patch applied to her neck. Lab work obtained along with head CT. Lab Data Attestation: I reviewed the patient's lab results. Labs: Laboratory Results - last 24 hr 06/27/21 06/27/21 11:24 11:24 WBC 7.2 RBC 3.76 L Hgb 11.7 L Hct 36.2 L MCV 96.3 MCH 31.1 MCHC 32.3 RDW Std Deviation 47.1 H RDW Coeff of Delia 13.3 Plt Count 249 MPV 10.3 Immature Gran % (Auto) 0.400 Neut % (Auto) 69.6 Lymph % (Auto) 21.6 [place] % (Auto) 6.7 Eos % (Auto) 1.3 Baso % (Auto) 0.4 Absolute Neuts (auto) 5.0 Absolute Lymphs (auto) 1.55 Nucleated RBC % 0 Sodium 139 Potassium 3.8 Chloride 105 Carbon Dioxide 31.0 Anion Gap 3 L BUN 14 Creatinine 0.85 Estim Creat Clear Calc 77.21 Est GFR (MDRD) Af Amer 90 Est GFR (MDRD) Non-Af 74 BUN/Creatinine Ratio 16.5 Glucose 116 H Calcium 9.1 Radiography Diagnostic Testing: Clinical Impression(s) from Imaging Studies Brain CT 06/27/21 11:40 IMPRESSION: Normal unenhanced CT scan of the brain. Electronically Signed: Skyler Urban MD at 12:14 EDT , Treatment and Re-Evaluation Narrative: Lab work is unremarkable. CT head normal. On repeat evaluation patient does report improvement. She continues to have muscular tenderness in her neck. We discussed the possibility of early gastroenteritis as we have been seeing a lot of that in the community. She will be given a prescription for Zofran. Return instructions are provided. Discharge Plan Triage Chief Complaint: Headache ED Provider: Tova Peacock Dx/Rx/DC Orders Clinical Impression: Cervical strain, Vomiting Instructions: ED Neck Sprain or Strain, ED Vomiting (Adult) Prescriptions: New ondansetron 4 mg tablet,disintegrating 4 mg PO Q8H PRN (Reason: nausea and vomiting) Qty: 10 RF: 0 No Action losartan 100 mg tablet 100 mg PO DAILY RF: 0 venlafaxine 75 mg capsule,extended release 24hr 75 mg PO QDAY Qty: 90 RF: 4 simvastatin 5 MG tablet 5 mg PO QHS RF: 0 aspirin 81 MG tablet,chewable 81 mg PO DAILY@0800 RF: 0 cholecalciferol (vitamin D3) 1,000 UNIT capsule 1,000 unit PO DAILY RF: 0 calcium carbonate 600 MG tablet 300 mg PO BID RF: 0 glucosamine sulf-chondroitinSA 1 EACH capsule 1 ea PO BID RF: 0 pantoprazole 40 MG tablet 40 mg PO DAILY RF: 0 cetirizine 10 MG capsule 10 mg PO DAILY PRN (Reason: Allergies) RF: 0 hydrochlorothiazide 25 MG tablet 12.5 mg PO QAM Qty: 1 RF: 0 metformin 500 MG tablet extended release 24 hr 500 mg PO BID RF: 0 Primary Care Provider: Buddy Hui Referrals: Buddy Hui MD [Primary Care Provider] - 1 Week if not improving Disposition Disposition: Home, Self Care
[2021-06-27] MEDS: 0.9% Normal Saline 1,000 ML 1000 ML IV (11:28)
[2021-06-27] MEDS: Ketorolac 30 MG/ML Syringe IV (11:30)
[2021-06-27] MEDS: Ondansetron 4 MG/2 ML Vial IV (11:30)
[2021-06-27] MEDS: Lidocaine 5% Patch 1 PATCH TOPICAL (11:30)
[2021-06-27 11:35] LABS: Absolute Lymphocyte Count 1.55 X10^3/uL (0.83-4.51); Basophil# 0.03 X10^3/uL; Basophil% 0.4 % (0-1); Eosinophil# 0.09 X10^3/uL; Eosinophils% 1.3 % (0-5); Hematocrit 36.2 % (37-47); Hemoglobin 11.7 g/dL (12.0-15.0); Lymphocyte # 1.55 X10^3/ul (0.83-4.51); Lymphocyte % 21.6 % (19-41); Mean Corp Hgb Conc 32.3 g/dL (32-36); Mean Corpuscular Hgb 31.1 pg (27.0-32.0); Mean Corpuscular Volume 96.3 fL (81-99); Mean Platelet Vol. 10.3 fl (6.2-12.0); Monocyte# 0.48 X10^3/uL; Monocyte% 6.7 % (0-10); NRBC Flagged by Analyzer 0 % (0-5); Neutrophil # 4.98 X10^3/uL (2.7-7.7); Neutrophil % 69.6 % (47-70); Platelet Count 249 K/mm3 (150-450); RBC Distribution Width CV 13.3 % (11.6-14.6); RBC Distribution Width SD 47.1 fl (35.1-43.9); Red Blood Count 3.76 M/mm3 (4.2-5.4); White Blood Count 7.2 K/mm3 (4.4-11.0)
--- NOTE | 2021-06-27 11:40 | CT_ITS ---
STUDY: CT BRAIN WITHOUT CONTRAST REASON FOR EXAM: Female, 51 years old. headache RADIATION DOSAGE (If Supplied By Facility): CTDIvol = ( 44.99 ) mGy, DLP = ( 846.73 ) mGycm TECHNIQUE: Transaxial CT imaging of the brain was performed without administration of intravenous contrast material. Individualized dose optimization techniques were used for this CT. COMPARISON: No relevant priors. FINDINGS: Normal soft tissue structures. Normal calvarium. Normal size ventricles and extra-axial spaces for the patient''s age. Normal white matter tracts of the cerebral hemispheres. Normal basal ganglia and thalami. Normal brainstem. Normal cerebellum. There is no intracranial hemorrhage. There are no findings of an acute ischemic infarction. Normal visualized paranasal sinuses. CT/Brain/Head without Contrast IMPRESSION: Normal unenhanced CT scan of the brain. Electronically Signed: Skyler Urban MD at 12:14 EDT ,
[2021-06-27 11:48] LABS: Anion Gap 3 (5-15); BUN 14 mg/dL (7-18); BUN/Creat Ratio 16.5 RATIO (10-20); Calcium,Total 9.1 mg/dL (8.5-10.1); Chloride 105 mmol/L (98-107); Creatinine, Serum 0.85 mg/dL (0.55-1.02); EST Glomerular Filtration Rate 74 mL/min (>60); Est Glom Filt Rate - Afr Amer 90 mL/min (>60); Estimated Creatinine Clearance 77.21 ml/min; Glucose 116 mg/dL (74-106); Potassium 3.8 mmol/L (3.5-5.1); Sodium Level 139 mmol/L (136-145)
[2021-06-27 11:57] VITALS: BP 152/86; PULSE 75; RESP 18; O2SAT 99
[2021-06-27 12:34] VITALS: PULSE 76
== END 2021-06-27 12:35 | disposition home or self-care (01) ==
PROVIDERS: Emergency Provider Emergency Medicine; PCP Family Medicine; Visit Provider Emergency Medicine
DX: S16.1XXA Strain of muscle, fascia and tendon at neck level, initial encounter (principal); X58.XXXA Exposure to other specified factors, initial encounter; R11.10 Vomiting, unspecified; I10 Essential (primary) hypertension; E78.5 Hyperlipidemia, unspecified; Z79.82 Long term (current) use of aspirin; Z79.899 Other long term (current) drug therapy; Z87.891 Personal history of nicotine dependence
CPT/HCPCS: 70450; 80048; 85025; 96361; 96374; 96375; 99283; J2405

== ENCOUNTER → 2021-07-09 | Outpatient (CLI) | payer BC, SELFPAY ==
--- NOTE | 2021-07-09 12:18 | BI_ITS ---
MAMMOGRAPHY - BILATERAL SCREENING REASON FOR EXAM: Female, 51 years old. Routine annual screening examination. PERTINENT HISTORY: Non-contributory. TECHNIQUE: Digital bilateral breast jaymie (3D mammographic acquisition) in the CC and MLO projections. 2-D mediolateral oblique (MLO) and craniocaudad (CC) views of both breasts were obtained. CAD: Full Field Digital Mammography with Computer Added Detection was performed. COMPARISON: Comparison is made with prior study dated 07/07/2020 and 07/05/2019. FINDINGS: Breast Composition: There are scattered areas of fibroglandular density. There are no dominant masses or suspicious calcifications. Stable 6 mm well-defined nodule in the upper outer aspect of the right breast suggestive of small intramammary lymph node. Stable partially calcified nodules in the upper medial aspect of the left breast. Stable benign appearing bilateral axillary nodes. No other significant abnormalities are identified. There has been no significant change since the prior study. BI/SCRN MAMM (CAD)W/JAYMIE BILAT IMPRESSION: Stable bilateral screening mammogram. Yearly follow-up mammogram recommended. (A) ASSESSMENT CATEGORY: BIRADS Category 2: Benign. A letter regarding these results will be sent to the patient by the facility within 30 days. Approximately 10% of breast cancers are not detected by mammography. A normal mammogram should not delay biopsy of a clinically suspicious abnormality. [id number] Electronically Signed: Thanh Bray MD at 13:36 EDT ,
== END | disposition home or self-care (01) ==
LOC: OPBI 12:17
PROVIDERS: PCP Family Medicine; Visit Provider Nurse Practitioner Women's Health
DX: Z12.31 Encounter for screening mammogram for malignant neoplasm of breast (principal)
CPT/HCPCS: 77063; 77067

== ENCOUNTER 2022-09-05 16:50 | Emergency (ER) | payer BC, SELFPAY ==
[2022-09-05 16:51] VITALS: BP 134/76; PULSE 64; RESP 14; TEMP 36.6; O2SAT 98; BMI 34.2
--- NOTE | 2022-09-05 16:59 | EDS_ITS ---
HPI <CARLOS Morris - Last Filed: 09/05/22 17:26> History of Present Illness Chief Complaint: Laceration Narrative Narrative: 52-year-old ymdvo-ixxy-yoywvsss female presents with a laceration to her left ring finger from pruning saida. Bleeding is controlled with pressure. No weakness numbness or tingling. Last tetanus unknown. PFSH <CARLOS Morris - Last Filed: 09/05/22 17:26> [facility] Medical History Endometriosis Hyperlipidemia Hypertension Home Medications aspirin 81 mg chewable tablet 81 mg PO DAILY@0800 06/05/13 [History Last Taken 02/15/16] cholecalciferol (vitamin D3) 25 mcg (1,000 unit) capsule 1,000 unit PO DAILY 06/05/13 [History Last Taken Unknown] simvastatin 5 mg tablet 5 mg PO QHS 06/05/13 [History Last Taken Unknown] calcium carbonate 600 mg calcium (1,500 mg) tablet 300 mg PO BID 02/20/16 [History Last Taken Unknown] glucosamine sulfate 250 mg-chondroitin sulfate A 200 mg capsule 1 ea PO BID 02/20/16 [History Last Taken Unknown] pantoprazole 40 mg tablet,delayed release 40 mg PO DAILY 02/20/16 [History Last Taken 04/30/20 05:00] cetirizine 10 mg capsule 10 mg PO DAILY PRN Allergies 10/22/18 [History Last Taken Unknown] hydrochlorothiazide 25 mg tablet 12.5 mg (1/2 x 25 mg) PO QAM #1 TAB 10/23/18 [Rx Last Taken Unknown] losartan 100 mg tablet 100 mg PO DAILY 07/05/19 [History Last Taken 04/30/20 05:00] metformin 500 mg tablet,extended release 24 hr 500 mg PO BID 04/28/20 [History Last Taken Unknown] nabumetone 500 mg tablet 500 mg PO BID 07/09/21 [History Last Taken Unknown] tirzepatide 12.5 mg/0.5 mL subcutaneous pen injector (Mounjaro) 12.5 mg subcut QWEEK 07/13/22 [History Last Taken Unknown] venlafaxine 75 mg capsule,extended release 24 hr 75 mg PO QDAY #90 caps 07/13/22 [Rx Last Taken Unknown] Allergy/AdvReac Type Severity Reaction Status Date / Time codeine Allergy Anaphylaxis Verified 09/05/22 16:53 Iodinated Contrast Media Allergy Anaphylaxis Verified 09/05/22 16:53 [iv contrast dye] shellfish derived Allergy Nausea/Vom/ Verified 09/05/22 16:53 Diarrhea Sulfa (Sulfonamide Allergy Anaphylaxis Verified 09/05/22 16:53 Antibiotics) pineapple [Pineapple] AdvReac Nausea/Vom/ Verified 09/05/22 16:53 Diarrhea squash AdvReac Nausea/Vom/ Verified 09/05/22 16:53 Diarrhea walnut AdvReac Nausea/Vom/ Verified 09/05/22 16:53 Diarrhea Family History Father Myocardial infarction Hypertension Mother Heart disease Hypertension Grandmother Heart disease Hypertension Surgical History H/O laparoscopy H/O: hysterectomy History of lateral meniscus repair of left knee Labral tear of left hip joint Plantar fascia syndrome Social History Smoking Status: Former smoker alcohol intake: current details: social substance use type: does not use caffeine: Yes frequency: 3-4 times per week seatbelt use: always do you feel safe at home: Yes additional social history: seperated ROS <CARLOS Morris - Last Filed: 09/05/22 17:26> ROS ED ROS Narrative Neuro: Negative for motor/sensory dysfunction. Skin: Positive for laceration. Musc: Negative for joint pain, swelling. Heme: Negative for easy bruising, bleeding, lymphadenopathy. EXAM <CARLOS Morris - Last Filed: 09/05/22 17:26> Physical Exam Narrative Exam Narrative: CONST: Patient sitting in no acute distress. EYES: Normal inspection. NECK: Normal inspection. SKIN: 1 cm linear horizontal laceration on the left ring finger pad. No joint involvement. Slow oozing blood, no foreign body. EXTREMITIES: Normal appearance, full ROM left hand and digits, normal motor and sensory function median radial and ulnar distributions, 2+ radial pulse and brisk cap refill. PSYCH: Normal affect. Const Vital Signs: 09/05/22 16:51 Temperature 97.8 F Temperature Source Temporal Pulse Rate 64 Respiratory Rate 14 Blood Pressure 134/76 H Blood Pressure Mean 95 Pulse Ox 98 Oxygen Delivery Method Room Air [facility] <CARLOS Morris - Last Filed: 09/05/22 17:26> [facility] Narrative Medical decision making narrative: 1 cm laceration left index finger pad. Neurovascularly intact. No joint involvement. There is no foreign body and no indication for x-rays. Simple suture repair was performed and tolerated with no complications. Patient given wound care instructions, tetanus updated, discharged in stable condition. Attending note: Patient seen and evaluated with porcelain enamel installer. I perform my own [id number]-[id number] evaluation. I agree with the plan of work-up. Laceration left ring finger clippers while grooming her [place]. Tetanus unknown she is on baby aspirin. Examining finger flap superficial laceration volar aspect distal phalanx. There is bleeding controlled with pressure. No joint involvement. Patient's tetanus updated, laceration repaired by porcelain enamel installer. Outpatient follow- up. <Dr. Richie Lai DO - Last Filed: 09/05/22 17:41> [facility] Narrative Medical decision making narrative: Attending note: Patient seen and evaluated with porcelain enamel installer. I perform my own seji-vh-uroo evaluation. I agree with the plan of work-up. Laceration left ring finger clippers while grooming her [place]. Tetanus unknown she is on baby aspirin. Examining finger flap superficial laceration volar aspect distal phalanx. There is bleeding controlled with pressure. No joint involvement. Patient's tetanus updated, laceration repaired by porcelain enamel installer. Outpatient follow- up. Procedures <CARLOS Morris - Last Filed: 09/05/22 17:26> Lacerations left ring finger: Length: 0.39 in Depth: Skin Shape: Flap Prep: Sterile Conditions and Shure-Clens Laceration repair: Irrigated, Lidocaine and Local Number of Sutures/[place]: 3 Suture Information: Ethilon and 5-0 Discharge Plan Triage Chief Complaint: Laceration ED Midlevel Provider: Damrais Ramirez ED Provider: Richie Lai Dx/Rx/DC Orders Clinical Impression: Laceration of left ring finger Instructions: ED Laceration Extremity Prescriptions: No Action losartan 100 mg tablet 100 mg PO DAILY nabumetone 500 mg tablet 500 mg PO BID Mounjaro 12.5 mg/0.5 mL pen injector 12.5 mg subcut QWEEK venlafaxine 75 mg capsule,extended release 24hr 75 mg PO QDAY Qty: 90 4RF simvastatin 5 MG tablet 5 mg PO QHS Patient Comments: Cholestrol aspirin 81 MG tablet,chewable 81 mg PO DAILY@0800 Patient Comments: Heart health cholecalciferol (vitamin D3) 1,000 UNIT capsule 1,000 unit PO DAILY Patient Comments: Supplement calcium carbonate 600 MG tablet 300 mg PO BID Patient Comments: supplement glucosamine sulf-chondroitinSA 1 EACH capsule 1 ea PO BID Patient Comments: supplement pantoprazole 40 MG tablet 40 mg PO DAILY Patient Comments: acid reflux med cetirizine 10 MG capsule 10 mg PO DAILY PRN (Reason: Allergies) hydrochlorothiazide 25 MG tablet 12.5 mg PO QAM Qty: 1 0RF metformin 500 MG tablet extended release 24 hr 500 mg PO BID Primary Care Provider: Buddy Hui Referrals: Buddy Hui MD [Primary Care Provider] - Activity Restrictions/Additional Instructions: Stitches need removed in 7 days. You can shower as normal. Do not keep your hand submerged underwater such as bathing or swimming. If any signs of infection develop return to the ER (redness, swelling, pus, increased pain). Disposition Disposition: Home, Self Care Discharge Date/Time: 09/05/22 17:31
[2022-09-05] MEDS: Diphth,Pertuss(Acell),Tet Vac 0.5 ML Vial IM (17:07)
[2022-09-05] MEDS: Lidocaine 1% (20 ml mdv) 20 ML Vial INFILT (17:08)
== END 2022-09-05 17:31 | disposition home or self-care (01) ==
LOC: ED 17:14
PROVIDERS: Emergency Provider Emergency Medicine; PCP Family Medicine; Visit Provider Emergency Medicine
DX: S61.215A Laceration without foreign body of left ring finger without damage to nail, initial encounter (principal); W26.8XXA Contact with other sharp object(s), not elsewhere classified, initial encounter; Y93.H2 Activity, gardening and landscaping; I10 Essential (primary) hypertension; E78.5 Hyperlipidemia, unspecified; Z79.82 Long term (current) use of aspirin; Z79.899 Other long term (current) drug therapy; Z87.891 Personal history of nicotine dependence; Z23 Encounter for immunization
CPT/HCPCS: 12001; 90471; 90715; 99283

== ENCOUNTER 2022-12-23 06:47 | Day surgery (SDC) | payer BC, SELFPAY ==
[2022-12-23] VITALS (7 sets, daily range): BP systolic 114–137; BP diastolic 72–86; PULSE 80–89; RESP 16; TEMP 36.2–36.6; O2SAT 96–100; BMI 33.8
[2022-12-23] MEDS: Lactated Ringers 1,000 ML 15 ML IV (07:39)
[2022-12-23 07:42] LABS: Hematocrit 38.2 % (37-47); Hemoglobin 12.8 g/dL (12.0-15.0); Mean Corp Hgb Conc 33.5 g/dL (32-36); Mean Corpuscular Hgb 29.8 pg (27.0-32.0); Mean Platelet Vol. 10.7 fl (6.2-12.0); Platelet Count 292 K/mm3 (150-450); RBC Distribution Width SD 42.6 fl (35.1-43.9); Red Blood Count 4.29 M/mm3 (4.2-5.4); White Blood Count 6.1 K/mm3 (4.4-11.0)
[2022-12-23 07:56] LABS: Anion Gap 5 (5-15); BUN 15 mg/dL (7-18); BUN/Creat Ratio 24.4 RATIO (10-20); Calcium,Total 8.8 mg/dL (8.5-10.1); Chloride 108 mmol/L (98-107); Creatinine, Serum 0.61 mg/dL (0.55-1.02); EST Glomerular Filtration Rate 108 mL/min (>60); Est Glom Filt Rate - Afr Amer 130 mL/min (>60); Estimated Creatinine Clearance 106.35 ml/min; Glucose 101 mg/dL (74-106); Sodium Level 138 mmol/L (136-145)
--- NOTE | 2022-12-23 08:09 | DCINST_ITS ---
Discharge Instructions Diet Discharge Diet: No restrictions Activity Discharge Activity: May Not Drive (While taking pain medication) and May Shower May resume sexual activity in: 4 weeks Lifting Restrictions: 5 pounds, no strenuous activity, no exercise Additional Activity Instructions:: No sexual activity, no tub bathing, no swimming, no hot tubs Dressing / Incision Call your doctor if your incision/area has: Continuous Slow Oozing, Sudden Increased Bleeding, Increased Pain/ Swelling and Foul Smelling Discharge Call your doctor if you observe: Fever of 101 or Higher, Inability to urinate and Inability to have a bowel movement Follow Up Care Please Follow Up With: Leisa Christiansen MD When: The office will call the patient to make arrangements for follow-up Test Results: Test results from this visit will be discussed in further detail at your follow- up appointment, if applicable. Discharge Plan Admission Attending Provider: Leisa Christiansen Primary Care Provider: Buddy Hui Discharge Orders/Prescriptions Prescriptions: New oxycodone-acetaminophen [Percocet] 5-325 mg tablet 1 tab PO Q8H PRN (Reason: pain) 3 Days Qty: 10 0RF cephalexin [cephalexin] 500 mg capsule 500 mg PO Q12 3 Days Qty: 6 0RF Continued losartan 100 mg tablet 100 mg PO DAILY Mounjaro 12.5 mg/0.5 mL pen injector 12.5 mg subcut QWEEK simvastatin 5 MG tablet 5 mg PO QHS Patient Comments: Cholestrol aspirin 81 MG tablet,chewable 81 mg PO DAILY@0800 Patient Comments: Heart health cholecalciferol (vitamin D3) 1,000 UNIT capsule 1,000 unit PO DAILY Patient Comments: Supplement calcium carbonate 600 MG tablet 300 mg PO BID Patient Comments: supplement glucosamine sulf-chondroitinSA 1 EACH capsule 1 ea PO BID Patient Comments: supplement pantoprazole 40 MG tablet 40 mg PO DAILY Patient Comments: acid reflux med cetirizine 10 MG capsule 10 mg PO DAILY PRN (Reason: Allergies) hydrochlorothiazide 25 MG tablet 12.5 mg PO QAM Qty: 1 0RF metformin 500 MG tablet extended release 24 hr 500 mg PO BID meloxicam 15 mg tablet 15 mg PO DAILY venlafaxine 75 mg capsule,extended release 24hr 75 mg PO QHS Referrals / Follow Up: Buddy Hui MD [Primary Care Provider] - Disposition Disposition (needs filled in before D/C Order can be placed): Home, Self Care
--- NOTE | 2022-12-23 08:13 | PCM.OPRPT ---
Report of Operation Date of Procedure: 12/23/22 Pre-Operative Diagnosis: Stress urinary incontinence, urethral hypermobility Post-Operative Diagnosis: Same Surgery/Procedure Performed:: Mid urethral sling insertion, cystoscopy Surgeon: Leisa Christiansen Type of Anesthesia: General Specimen's removed: None Description of Procedure: The patient is a 52-year-old female with stress incontinence who now presents for surgical intervention. Informed consent has been obtained. The patient was taken to the operating room and placed on the operating room table. Anesthesia monitored the head, neck, airway, IV access and vital signs throughout the case. Once anesthesia was appropriate ministered the patient was placed into exaggerated dorsolithotomy and Trendelenburg position. A Hudson catheter was inserted and the bladder was drained. The mid urethra was isolated and injected submucosally with lidocaine for hydrostatic dissection. A midline vertical incision was made approximately 1.5 cm in length and blunt and sharp dissection was performed bilaterally on either side of the urethra with care being taken to avoid entrance into the urethra or the vaginal mucosa. Using the provided trocars, the Altis mid urethral sling was inserted into the transobturator complexes bilaterally. The sling was positioned using the tensioning suture and it lay flat against the urethra. The tensioning suture was then cut and the incision was closed using running interlocking 2-0 Vicryl. The patient was flattened in the Hudson catheter was removed. The cystoscope was inserted through the urethra under direct visualization into the urinary bladder. There was no evidence of foreign object including mesh or suture within the urinary bladder. No mass, erythema or ulceration was identified. At this time the cystoscope was removed and the patient was awakened and taken to the recovery room in good condition. There were no complications during this procedure. Grafts/Implants Used: Altis mid urethral sling Complications None Admit VTE Documentation VTE Present on Admission: Yes VTE Mechan Device Prophylaxis: SCD's VTE Pharm Prophylaxis ordered?: No Reason prophylaxis not ordered:: Treatment Not Indicated
[2022-12-23 08:30] LABS: Bedside Glucose 95 mg/dL (74-106)
[2022-12-23] MEDS: Cefazolin 2 GM in 0.9% Normal Saline (100mL Bag) 100 ML IV (08:40)
[2022-12-23] MEDS: Lidocaine 1% /Epi 1:100 (50ml) 50 ML VIAL (09:00)
[2022-12-23 09:40] LABS: Bedside Glucose 88 mg/dL (74-106)
== END 2022-12-23 11:39 | disposition home or self-care (01) ==
LOC: SDC 06:49 → AC 06:50
PROVIDERS: Anesthesiology; PCP Family Medicine; Referring Provider Urology; Visit Provider Urology
PROC: 0TJB8ZZ Inspection of Bladder, Via Natural or Artificial Opening Endoscopic (ICD-10-PCS; CPT 57288; principal; 2022-12-23 08:10)
DX: N39.3 Stress incontinence (female) (male) (principal); E11.9 Type 2 diabetes mellitus without complications; N36.41 Hypermobility of urethra; R35.1 Nocturia; N95.2 Postmenopausal atrophic vaginitis; I10 Essential (primary) hypertension; K21.9 Gastro-esophageal reflux disease without esophagitis; E78.00 Pure hypercholesterolemia, unspecified; Z79.82 Long term (current) use of aspirin; Z79.84 Long term (current) use of oral hypoglycemic drugs; Z79.899 Other long term (current) drug therapy; Z87.891 Personal history of nicotine dependence
CPT/HCPCS: 57288; 00860; 80048; 82962; 83036; 85027; 93005; J7120; J2405

== ENCOUNTER 2023-03-28 09:42 | Emergency (ER) | payer BC, SELFPAY ==
[2023-03-28 09:43] VITALS: BP 153/94; PULSE 77; RESP 14; TEMP 36.5; O2SAT 100; BMI 35.7
--- NOTE | 2023-03-28 09:54 | EDS_ITS ---
HPI HPI - GI History of Present Illness Chief Complaint: Abd Pain Informant: patient Narrative Narrative: since yesterday.Intermittent sharp pain under her right ribs. she reported indigestion yesterday. She did not eat dinner. Ate flatbed pizza with minimal cheese for lunch. Today had increasing pain that was sharp however went away. She went to urgent care and was sent here. She states similar symptoms years ago outpatient ultrasound through her doctor was negative. No fevers or chills. No cough. No chest pains. No recent travel or surgeries. No history of PE or DVT. Occasional alcohol history. Hypertension diabetes hyperlipidemia. No current complaints at this time. Reports urgent care sent here for an ultrasound. Prior similar symptoms: Yes [facility] Medical History Alcohol use Back pain Bladder disease Diabetes Dietary restriction Endometriosis Former smoker Gastric reflux High cholesterol History of echocardiogram History of stress test Hyperlipidemia Hypertension JENNIFFER (stress urinary incontinence, female) Wears glasses Home Medications aspirin 81 mg chewable tablet 81 mg PO DAILY@0800 06/05/13 [History Last Taken 12/15/22] cholecalciferol (vitamin D3) 25 mcg (1,000 unit) capsule 1,000 unit PO DAILY 06/05/13 [History Last Taken Unknown] calcium carbonate 600 mg calcium (1,500 mg) tablet 300 mg PO BID 02/20/16 [History Last Taken Unknown] glucosamine sulfate 250 mg-chondroitin sulfate A 200 mg capsule 1 ea PO BID 02/20/16 [History Last Taken Unknown] pantoprazole 40 mg tablet,delayed release 40 mg PO DAILY 02/20/16 [History Last Taken 12/23/22] cetirizine 10 mg capsule 10 mg PO DAILY PRN Allergies 10/22/18 [History Last Taken Unknown] tirzepatide 12.5 mg/0.5 mL subcutaneous pen injector (Mounjaro) 12.5 mg subcut QWEEK 07/13/22 [History Last Taken Unknown] meloxicam 15 mg tablet 15 mg PO DAILY 12/21/22 [History Last Taken 12/15/22] venlafaxine 75 mg capsule,extended release 24 hr 75 mg PO QHS 12/21/22 [History Last Taken Unknown] cephalexin 500 mg capsule 500 mg PO Q12 post-operative 3 days #6 CAPSULES 12/23/22 [Rx Last Taken Unknown] oxycodone-acetaminophen 5 mg-325 mg tablet (Percocet) 1 tab PO Q8H PRN pain 3 days #10 tabs 12/23/22 [Rx Last Taken Unknown] epinephrine 0.3 mg/0.3 mL injection, auto-injector 0.3 mg IM Q4H 03/28/23 [History Last Taken Unknown] hydrochlorothiazide 12.5 mg tablet 12.5 mg PO DAILY 03/28/23 [History Last Taken Unknown] losartan 50 mg tablet 50 mg PO BID 03/28/23 [History Last Taken Unknown] metformin 500 mg tablet 500 mg PO BID 03/28/23 [History Last Taken Unknown] simvastatin 10 mg tablet 10 mg PO DAILY 03/28/23 [History Last Taken Unknown] Allergy/AdvReac Type Severity Reaction Status Date / Time codeine Allergy Anaphylaxis Verified 03/28/23 09:45 Iodinated Contrast Media Allergy Anaphylaxis Verified 03/28/23 09:45 [iv contrast dye] shellfish derived Allergy Nausea/Vom/ Verified 03/28/23 09:45 Diarrhea Sulfa (Sulfonamide Allergy Anaphylaxis Verified 03/28/23 09:45 Antibiotics) pineapple [Pineapple] AdvReac Nausea/Vom/ Verified 03/28/23 09:45 Diarrhea squash AdvReac Nausea/Vom/ Verified 03/28/23 09:45 Diarrhea walnut AdvReac Nausea/Vom/ Verified 03/28/23 09:45 Diarrhea Family History Father Myocardial infarction Hypertension Mother Heart disease Hypertension Grandmother Heart disease Hypertension Surgical History H/O laparoscopy H/O: hysterectomy History of lateral meniscus repair of left knee Hx of arthroscopy of right knee Hx of breast reduction, elective Labral tear of left hip joint Plantar fascia syndrome Social History Smoking Status: Former smoker alcohol intake: current details: social substance use type: does not use caffeine: Yes frequency: 3-4 times per week seatbelt use: always do you feel safe at home: Yes additional social history: seperated ROS ROS ED Constitutional Constitutional ED: Denies chills, fever(s) or sweats Eyes Eyes: Denies change in vision ENT ENT ED: Denies dysphagia or sore throat Cardiovascular Cardiovascular: Denies chest pain, leg edema, palpitations or racing heartbeat Respiratory/Chest Respiratory/Chest: Denies cough, dyspnea or dyspnea on exertion Gastrointestinal Gastrointestinal: Reports abdominal pain; Denies diarrhea, nausea or vomiting Genitourinary Genitourinary ED: Denies dysuria, hematuria or urinary frequency Musculoskeletal Musculoskeletal: Denies back pain, extremity pain or neck pain Integumentary Denies rash or wounds Neurologic Neurologic: Denies headache(s), paresthesias or weakness EXAM Physical Exam Const Vital Signs: 03/28/23 09:43 03/28/23 11:34 Temperature 97.7 F L Temperature Source Temporal Pulse Rate 77 66 Respiratory Rate 14 16 Blood Pressure 153/94 H 158/99 H Blood Pressure Mean 113 118 Pulse Ox 100 100 Oxygen Delivery Method Room Air Room Air Positive well nourished and well developed General Appearance ED: well developed and NAD HEENT Reports moist mucous membranes normocephalic and atraumatic Eyes PERRL, EOMs intact bilaterally and conjunctivae normal General Eye ED: Yes normal appearance of both eyes Neck no lymphadenopathy and supple General: Negative for tenderness Chest Wall Chest Narrative: Scar line under right breast from previous reduction this past July. There is no rash no tenderness in this region. Chest: Negative for tenderness Resp normal respiratory effort and normal air movement Effort and Inspection: symmetric chest movement; Negative for respiratory distress Cardio regular rate, regular rhythm and no murmurs Peripheral Pulses: pulses 2+ throughout GI normal to inspection, nondistended, normoactive bowel sounds and non-tender GI Narrative: Negative Collins's or McBurney's tenderness. Palpation: Negative for guarding or rebound tenderness present Back/Spine no CVA tenderness and no thoracic nor lumbar tenderness Extremity normal to inspection General Extremety ED: Negative for edema or tenderness General Extremity: Negative for edema Neuro oriented x3 and no sensory deficits noted Sensorium / Orientation: awake and alert Skin no rashes or lesions noted and no wounds MDM MDM MDM Narrative Medical decision making narrative: Interventions / MDM: Differential diagnosis: Abdominal pain nonspecific, Diagnosis considered but do not suspect: Cholecystitis, ultrasound negative for this. Pulmonary embolism however no dyspnea or hypoxia. No current rash for concerns of shingles. My EKG interpretation: N/A Imaging independently reviewed and interpreted by myself: Right upper quadrant ultrasound: Fatty liver normal gallbladder structures. Small angiomyolipoma right kidney. Read by radiology. External documents reviewed: N/A Test considered but not ordered:N/A ED course: Patient nontoxic no reproducible pain. Sent here for gallbladder concerns. Abdominal labs and ultrasound ordered. Abdominal labs are normal ultrasound negative for gallbladder issues. Fatty liver that is known to the patient. Discussed the benign angiomyolipoma findings incidentally found. This will be monitored and she will follow-up with her PCP. All questions were answered. Re-evaluation: stable Disposition discussed with patient/family/significant other: Case discussed with consulting clinician: N/A This note was generated with [employer] dictation software. It may contain incorrect words, spelling, and punctuation that were not noted in checking the note before signing. Lab Data Attestation: I reviewed the patient's lab results. Labs: Laboratory Results - last 24 hr 03/28/23 10:00 WBC 5.6 RBC 4.33 Hgb 13.5 Hct 39.1 MCV 90.3 MCH 31.2 MCHC 34.5 RDW Std Deviation 41.6 RDW Coeff of Delia 12.5 Plt Count 283 MPV 10.1 Immature Gran % (Auto) 0.200 Neut % (Auto) 61.0 Lymph % (Auto) 27.3 Cottle % (Auto) 8.7 Eos % (Auto) 2.3 Baso % (Auto) 0.5 Absolute Neuts (auto) 3.4 Absolute Lymphs (auto) 1.53 Nucleated RBC % 0 Sodium 138 Potassium 3.9 Chloride 107 Carbon Dioxide 27.0 Anion Gap 4 L BUN 14 Creatinine 0.64 Estim Creat Clear Calc 124.27 Est GFR (MDRD) Af Amer 124 Est GFR (MDRD) Non-Af 103 BUN/Creatinine Ratio 21.9 H Glucose 101 Calcium 9.6 Total Bilirubin 0.40 AST 12 L ALT 19 Alkaline Phosphatase 70 Total Protein 7.3 Albumin 4.0 Globulin 3.3 Albumin/Globulin Ratio 1.2 Lipase 47 Radiography Diagnostic Testing: Clinical Impression(s) from Imaging Studies Gallbladder Ultrasound 03/28/23 09:54 IMPRESSION: Hepatomegaly. Findings suggestive of a subcentimeter angiomyolipoma in the upper pole of the right kidney. Electronically Signed: Thanh Bray MD at 11:07 EST , Discharge Plan Triage Chief Complaint: Abd Pain ED Provider: Richie Lai Dx/Rx/DC Orders Clinical Impression: Abdominal pain, RUQ, Fatty liver, Angiomyolipoma of right kidney Instructions: Abdominal Pain Prescriptions: No Action Mounjaro 12.5 mg/0.5 mL pen injector 12.5 mg subcut QWEEK aspirin 81 MG tablet,chewable 81 mg PO DAILY@0800 Patient Comments: Heart health cholecalciferol (vitamin D3) 1,000 UNIT capsule 1,000 unit PO DAILY Patient Comments: Supplement calcium carbonate 600 MG tablet 300 mg PO BID Patient Comments: supplement glucosamine sulf-chondroitinSA 1 EACH capsule 1 ea PO BID Patient Comments: supplement pantoprazole 40 MG tablet 40 mg PO DAILY Patient Comments: acid reflux med cetirizine 10 MG capsule 10 mg PO DAILY PRN (Reason: Allergies) meloxicam 15 mg tablet 15 mg PO DAILY venlafaxine 75 mg capsule,extended release 24hr 75 mg PO QHS oxycodone-acetaminophen [Percocet] 5-325 mg tablet 1 tab PO Q8H PRN (Reason: pain) 3 Days Qty: 10 0RF cephalexin [cephalexin] 500 mg capsule 500 mg PO Q12 3 Days Qty: 6 0RF epinephrine 0.3 mg/0.3 mL auto-injector 0.3 mg IM Q4H hydrochlorothiazide 12.5 mg tablet 12.5 mg PO DAILY losartan 50 mg tablet 50 mg PO BID metformin 500 mg tablet 500 mg PO BID simvastatin 10 mg tablet 10 mg PO DAILY Primary Care Provider: Buddy Hui Referrals: Buddy Hui MD [Primary Care Provider] - 1 Week Activity Restrictions/Additional Instructions: Abdominal labs are normal. Pancreas enzymes normal liver enzymes normal levels. Ultrasound your gallbladder region normal gallbladder structures. You have a fatty liver. You have a benign growth on your right kidney 8 to 9 mm in size. Monitor symptoms and follow-up with your doctor. Disposition Disposition: Home, Self Care
--- NOTE | 2023-03-28 09:54 | US_ITS ---
STUDY: ABDOMINAL ULTRASOUND - RIGHT UPPER QUADRANT REASON FOR VISIT: Female, 52 years old . Right upper quadrant pain. TECHNIQUE: Ultrasound evaluation of the right upper quadrant was performed with real-time and static madden-scale imaging. TECHNICAL QUALITY: Adequate. COMPARISON: Comparison is made with prior study dated May 11, 2021. FINDINGS: Liver: The liver is mildly enlarged and measures 17.2 cm. There is increased echogenicity consistent with fatty infiltration. The bile ducts are within normal limits. There is hepatic color flow. The direction of portal flow is hepatopetal. There is no demonstrated mass lesion. Gallbladder: Normal distended gallbladder. The gallbladder wall measures 2.0 mm. There is a negative sonographic Collins''s sign. There is no pericholecystic fluid. There are no gallstones. Common Bile Duct (C.B.D.): The common bile duct measures 6 mm. Pancreas: Normal size of the head, body and tail of the pancreas. There is normal echogenicity of the pancreas. There is no demonstrated pancreatic mass or cyst. Right Kidney: Normal size of the right kidney. The right kidney measures 12.1 cm x 5.5 cm x 7.1 cm. Normal renal cortex. The right cortex measures 2.9 cm. There is 8 mm x 9 mm echogenic focus in the cortex of the upper pole of the right kidney suggestive of a tiny angiomyolipoma. There is no right hydronephrosis. US/Gallbladder IMPRESSION: Hepatomegaly. Findings suggestive of a subcentimeter angiomyolipoma in the upper pole of the right kidney. Electronically Signed: Thanh Bray MD at 11:07 [facility] ,
[2023-03-28 10:09] LABS: Absolute Lymphocyte Count 1.53 X10^3/uL (0.83-4.51); Absolute Neutrophil Count 3.4 X10^3/uL (2.0-7.7); Basophil# 0.03 X10^3/uL; Basophil% 0.5 % (0-1); Eosinophil# 0.13 X10^3/uL; Eosinophils% 2.3 % (0-5); Hematocrit 39.1 % (37-47); Hemoglobin 13.5 g/dL (12.0-15.0); Lymphocyte # 1.53 X10^3/ul (0.83-4.51); Lymphocyte % 27.3 % (19-41); Mean Corp Hgb Conc 34.5 g/dL (32-36); Mean Corpuscular Hgb 31.2 pg (27.0-32.0); Mean Corpuscular Volume 90.3 fL (81-99); Mean Platelet Vol. 10.1 fl (6.2-12.0); Monocyte# 0.49 X10^3/uL; Monocyte% 8.7 % (0-10); NRBC Flagged by Analyzer 0 % (0-5); Neutrophil # 3.42 X10^3/uL (2.7-7.7); Platelet Count 283 K/mm3 (150-450); RBC Distribution Width CV 12.5 % (11.6-14.6); RBC Distribution Width SD 41.6 fl (35.1-43.9); Red Blood Count 4.33 M/mm3 (4.2-5.4); White Blood Count 5.6 K/mm3 (4.4-11.0)
[2023-03-28 10:25] LABS: ALB/GLOB Ratio 1.2 RATIO (0.9-2.4); AST(SGOT) 12 U/L (15-37); Alanine Aminotransfer ALT/SGPT 19 U/L (13-56); Alkaline Phosphatase 70 U/L (45-117); Anion Gap 4 (5-15); BUN 14 mg/dL (7-18); BUN/Creat Ratio 21.9 RATIO (10-20); Calcium,Total 9.6 mg/dL (8.5-10.1); Chloride 107 mmol/L (98-107); Creatinine, Serum 0.64 mg/dL (0.55-1.02); EST Glomerular Filtration Rate 103 mL/min (>60); Est Glom Filt Rate - Afr Amer 124 mL/min (>60); Estimated Creatinine Clearance 124.27 ml/min; Globulin 3.3 g/dL (2.2-4.2); Glucose 101 mg/dL (74-106); Lipase 47 U/L (13-75); Potassium 3.9 mmol/L (3.5-5.1); Protein, Total 7.3 g/dL (6.4-8.2); Sodium Level 138 mmol/L (136-145)
--- OUTSIDE RECORDS SUMMARY | 2023-03-28 11:32 | XMS RPT_ITS | CCD ---
Author Name Unknown Address [id number] [place] [address] Organization [facility] Care Team Providers Care Cuff Stitcher Name Role Phone Antonio Hui MD Primary Care Provider ANTONIO HUI Attending UnavailANTONIO Esquivel Primary Care Unavailab ANTONIO Weber Primary Care Unavailab ANTONIO Weber Referring Unavailab ANTONIO Weber Primary Care Unavailab ANTONIO Weber Referring Unavailab ANTONIO Weber Primary Care Unavailab NATONIO Weber Attending Unavailab ANTONIO Weber Primary Care Unavailab ANTONIO Weber Referring Unavailab ANTONIO Weber Primary Care Unavailab le Allergies Allergy Classification Reported Allergen(s) Allergy Type Date of Onset Reaction(s) Facility (20 sources) hood allergenic extract; Translations: [HOOD] Drug Allergy 9 GI [facility] (20 sources) Codeine; Translations: [CODEINE] Drug Allergy 2 Anaphylaxis [facility] Work Phone: (20 sources) Contrast media; Translations: [CONTRAST DYE] Drug Allergy 2 Anaphylaxis [facility] Work Phone: (20 sources) Shellfish; Translations: [SHELLFISH CONTAINING PRODUCTS] Drug Allergy 7 GI Upset [facility] Work Phone: (20 sources) squash allergenic extract; Translations: [SQUASH] [facility] [place]; Translations: [STRAWBERRIES] Food Intolerance 9 Other: See Comments [facility] (20 sources) walnut allergenic extract; Translations: [WALNUT] Drug Allergy 9 GI Upset [facility] (20 sources) Sulfa Dyne; Translations: [SULFA DYNE] Drug Allergy 2 Anaphylaxis [facility] Work Phone: Medications Current Medications Medication Drug Class(es) Dates Sig (Normalized) Sig (Original) metFORMIN hydrochloride 500 mg oral tablet (20 sources) Biguanide Start: 11-12-2020 End: 03-09-2023 take 1 tablet by mouth twice daily at mealtime metFORMIN (GLUCOPHAGE) 500 mg tablet Indications: Diabetes mellitus type II (HCC) Take 1 tablet by mouth twice daily with meals. . 180 tablet 3 03/09/2022 03/09/2023 Active Completed/Discontinued Medications Medication Drug Class(es) Dates Sig (Normalized) Sig (Original) aspirin 81 mg oral tablet (20 sources) Platelet Aggregation Inhibitor, Nonsteroidal Anti-inflammatory Drug take 1 tablet by mouth once daily Aspirin 81 mg Tab Take 81 mg by mouth once daily. 0 Active Problems Active Problems Problem Classification Problem Date Documented Date Episodic/Chronic Conditions associated with dizziness or vertigo (1 source) Dizziness; Translations: [Dizziness and giddiness] Episodic Diabetes mellitus without complication (20 sources) Type 2 diabetes mellitus; Translations: [Type 2 diabetes mellitus without complications] Onset: 12-27-2018 12-27-2018 Chronic Disorders of lipid metabolism (20 sources) Hyperlipidemia; Translations: [Hyperlipidemia, unspecified] Onset: 12-15-2016 12-15-2016 Chronic Endometriosis (20 sources) Endometriosis (clinical); Translations: [Endometriosis, unspecified] 12-27-2018 Chronic Esophageal disorders (20 sources) Gastroesophageal reflux disease; Translations: [Gastro-esophageal reflux disease without esophagitis] Onset: 12-15-2016 12-15-2016 Chronic Essential hypertension (20 sources) Hypertensive disorder; Translations: [Essential (primary) hypertension] Onset: 12-15-2016 12-15-2016 Chronic Immunizations and screening for infectious disease (6 sources) Vaccination needed; Translations: [Encounter for immunization] Onset: 08-12-2022 Episodic Joint disorders and dislocations; trauma-related (20 sources) Acetabular labrum tear; Translations: [Other articular cartilage disorders, unspecified hip] 12-15-2016 Chronic Nausea and vomiting (1 source) Uncontrollable vomiting; Translations: [Vomiting, unspecified] Episodic Other inflammatory condition of skin (1 source) Erythema intertrigo; Translations: [Intertrigo] Onset: 02-14-2023 Episodic Other nutritional; endocrine; and metabolic disorders (20 sources) Body mass index 40+ - severely obese; Translations: [Morbid (severe) obesity due to excess calories] 12-15-2016 Chronic Other nutritional; endocrine; and metabolic disorders (1 source) Obesity, unspecified; Translations: [Obesity, Class II, BMI 35-39.9] Onset: 02-14-2023 Chronic Other nutritional; endocrine; and metabolic disorders (1 source) Morbid (severe) obesity due to excess calories; Translations: [Obesity, Class III, BMI 40-49.9 (morbid obesity) ([facility])] Onset: 08-12-2022 Chronic Residual codes; unclassified (1 source) H/O: steroid therapy; Translations: [Personal history of systemic steroid therapy] Episodic Spondylosis; intervertebral disc disorders; other back problems (20 sources) Degeneration of cervical intervertebral disc; Translations: [Other cervical disc degeneration, unspecified cervical region] Onset: 09-18-2018 09-18-2018 Chronic Past or Other Problems Problem Classification Problem Date Documented Date Episodic/Chronic Nonmalignant breast conditions (3 sources) Large breast; Translations: [Hypertrophy of breast] Onset: 08-12-2022 Episodic Other screening for suspected conditions (not mental disorders or infectious disease) (7 sources) Patient encounter status; Translations: [Encounter for screening for malignant neoplasm of colon] Onset: 05-12-2022 Episodic Residual codes; unclassified (1 source) Other specified postprocedural states; Translations: [S/P bilateral breast reduction] Onset: 08-14-2022 Episodic Spondylosis; intervertebral disc disorders; other back problems (20 sources) Neck pain; Translations: [Cervicalgia] Onset: 09-18-2018 Episodic Results Test Name Value Interpretation Reference Range Facil ity Vital Signs Date Time Vital Sign Value Performing Clinician Carolyn del castillo 08-12-2022 16:23-0400 Body weight 105.96 kg Antonio Hui MD Work Phone: [facility] 08-12-2022 16:23-0400 Diastolic blood pressure 70 mm[Hg] Antonio Hui MD Work Phone: [facility] 08-12-2022 16:23-0400 Heart rate 83 /min Antonio Hui MD Work Phone: [facility] 08-12-2022 16:23-0400 Respiratory rate 16 /min Antonio Hui MD Work Phone: [facility] 08-12-2022 16:23-0400 SaO2% (BldA) [Mass fraction] 96 % Antonio Hui MD Work Phone: [facility] 08-12-2022 16:23-0400 Systolic blood pressure 124 mm[Hg] Antonio Hui MD Work Phone: [facility] 09-22-2021 12:30-0400 Diastolic blood pressure 99 mm[Hg] Jennifer Nelson MD Work Phone: [facility] 09-22-2021 12:30-0400 Heart rate 74 /min Jennifer Nelson MD Work Phone: [facility] 09-22-2021 12:30-0400 Respiratory rate 18 /min Jennifer Nelson MD Work Phone: [facility] 09-22-2021 12:30-0400 SaO2% (BldA) [Mass fraction] 99 % Jennifer Nelosn MD Work Phone: [facility] 09-22-2021 12:30-0400 Systolic blood pressure 139 mm[Hg] Jennifer Nelson MD Work Phone: [facility] 09-22-2021 12:13-0400 Body temperature 98.01 [degF] Jennifer Nelson MD Work Phone: [facility] 08-25-2021 09:05-0400 Body height 170.2 cm Francie Laws PA-C Work Phone: [facility] 08-25-2021 09:05-0400 Body temperature 97.2 [degF] Francie Laws PA-C Work Phone: [facility] 08-25-2021 09:05-0400 Body weight 135.63 kg Francie Eusebia PA-C Work Phone: [facility] 08-25-2021 09:05-0400 Diastolic blood pressure 90 mm[Hg] Francie Annabella PA-C Work Phone: [facility] 08-25-2021 09:05-0400 Heart rate 104 /min Francie Annabella PA-C Work Phone: [facility] 08-25-2021 09:05-0400 SaO2% (BldA) [Mass fraction] 96 % Francie Annabella PA-C Work Phone: [facility] 08-25-2021 09:05-0400 Systolic blood pressure 138 mm[Hg] Francie Annabella PA-C Work Phone: [facility] 08-04-2021 15:57-0400 Body weight 135.72 kg Antonio Hui MD Work Phone: [facility] 08-04-2021 15:57-0400 Diastolic blood pressure 78 mm[Hg] Antonio Hui MD Work Phone: [facility] 08-04-2021 15:57-0400 Heart rate 79 /min Antonio Hui MD Work Phone: [facility] 08-04-2021 15:57-0400 Respiratory rate 16 /min Antonio Hui MD Work Phone: [facility] 08-04-2021 15:57-0400 SaO2% (BldA) [Mass fraction] 98 % Antonio Hui MD Work Phone: [facility] 08-04-2021 15:57-0400 Systolic blood pressure 136 mm[Hg] Antonio Hui MD Work Phone: [facility] 06-27-2021 10:41-0400 Body temperature 98.1 [degF] Syeda Older CLASSROOM INSTRUCTOR.VICTIMS ADVOCATE CLERK/SPECIALIST Work Phone: [facility] 06-27-2021 10:41-0400 Body weight 132.81 kg Syeda Older CLASSROOM INSTRUCTOR.VICTIMS ADVOCATE CLERK/SPECIALIST Work Phone: [facility] 06-27-2021 10:41-0400 Diastolic blood pressure 98 mm[Hg] Syeda Older CLASSROOM INSTRUCTOR.VICTIMS ADVOCATE CLERK/SPECIALIST Work Phone: [facility] 06-27-2021 10:41-0400 Heart rate 81 /min Syeda Older CLASSROOM INSTRUCTOR.VICTIMS ADVOCATE CLERK/SPECIALIST Work Phone: [facility] 06-27-2021 10:41-0400 Respiratory rate 20 /min Syeda Older CLASSROOM INSTRUCTOR.VICTIMS ADVOCATE CLERK/SPECIALIST Work Phone: [facility] 06-27-2021 10:41-0400 SaO2% (BldA) [Mass fraction] 99 % Syeda Older CLASSROOM INSTRUCTOR.VICTIMS ADVOCATE CLERK/SPECIALIST Work Phone: [facility] 06-27-2021 10:41-0400 Systolic blood pressure 160 mm[Hg] Syeda Older CLASSROOM INSTRUCTOR.VICTIMS ADVOCATE CLERK/SPECIALIST Work Phone: [facility] Encounters Encounter Date Encounter Type Care Provider Facility Start: 02-14-2023 End: 02-15-2023 ambulatory ANTONIO HUI Facility:[facility] Start: 11-09-2022 End: 11-10-2022 ambulatory ANTONIO HUI Facility:[facility] Start: 11-02-2022 Get Medical Advice Doris Hui MD Work Phone: [facility] Procedures Date Procedure Procedure Detail Performing Clinician Start: 08-14-2022 History of reduction of breast S/P bilateral breast reduction Antonio Hui MD Work Phone: Start: 05-12-2022 Dxa bone density yovana dy 1/> sites axial skel Antonio Hui MD Work Phone: Start: 09-22-2021 Gluc bld gluc mntr d ev cleared fda spec home use Kaelyn Hilton MD Work Phone: Start: 09-22-2021 Colonoscopy Jennifer Nelson MD Work Phone: Start: 07-09-2021 Mammography Buddy Hui MD Work Phone: Start: 08-14-2020 Adult depression screening assessment Syeda Older CLASSROOM INSTRUCTOR.VICTIMS ADVOCATE CLERK/SPECIALIST Work Phone: Start: 07-07-2020 Mammography Syeda Older CLASSROOM INSTRUCTOR.VICTIMS ADVOCATE CLERK/SPECIALIST Work Phone: History of reduction of breast S/P bilateral breast reduction Antonio Hui MD Work Phone: Plan of Treatment Date Care Activity Detail Author Start: 09-05-2032 Urine microalbumin profile DTaP,Tdap,Td Vaccine (3 - Td or Tdap) [facility] Start: 09-23-2031 Colonoscopy COLONOSCOPY [facility] Start: 09-23-2031 COLORECTAL CANCER SCREENING COLORECTAL CANCER SCREENING [facility] Start: 08-13-2023 3 comp foot exam completed DIABETIC FOOT EXAM [facility] Start: 08-13-2023 ANNUAL PCP TEAM COATING MIXER SUPERVISOR SHELLI DISEASE VISIT ANNUAL PCP TEAM CHRONIC DISEASE VISIT [facility] Start: 08-13-2023 BP CONTROLLED (<130/80) BP CONTROLLE D (<130/80) [facility] Start: 05-10-2023 Hemoglobin A1c/Hemoglobin.total in Blood HbA1C [facility] Start: 03-16-2023 BP CONTROLLED (<130/80) BP CONTROLLE D (<130/80) [facility] Start: 02-11-2023 ANNUAL PCP TEAM COATING MIXER SUPERVISOR SHELLI DISEASE VISIT ANNUAL PCP TEAM CHRONIC DISEASE VISIT [facility] Start: 02-11-2023 PNEUMOCOCCAL (1 - PCV) PNEUMOCOCCAL (1 - PCV) [facility] Immunizations Immunization Date Immunization Notes Care Provider Fa cility 02-11-2022 COVID-19 booster vaccine, age 12+ yr, bivalent ([employer]item[employer]) Antonio Hui MD Work Phone: [facility] 02-11-2022 hepatitis B vaccine, adult dosage Antonio Hui MD Work Phone: [facility] 02-11-2022 influenza, injectabl e, quadrivalent, contains preservative Antonio Hui MD Work Phone: [facility] 02-11-2022 influenza virus vaccine, unspecified formulation Bone Wstr Work Phone: [facility] 10-30-2021 zoster vaccine recombinant Antonio Hui MD Work Phone: [facility] Work Phone: 09-04-2021 hepatitis B vaccine, adult dosage Jennifer Nelson MD Work Phone: [facility] Work Phone: 09-04-2021 hepatitis B vaccine, unspecified formulation Odette Ocampo CLASSROOM INSTRUCTOR.VICTIMS ADVOCATE CLERK/SPECIALIST Work Phone: [facility] 08-25-2021 zoster vaccine recombinant Antonio Hui MD Work Phone: [facility] Work Phone: 08-04-2021 hepatitis B vaccine, adult dosage Antonio Hui MD Work Phone: [facility] 08-04-2021 hepatitis B vaccine, unspecified formulation Antonio Hui MD Work Phone: [facility] 10-20-2012 tetanus toxoid, reduced diphtheria toxoid, and acellular pertussis vaccine, adsorbed Syeda Older CLASSROOM INSTRUCTOR.VICTIMS ADVOCATE CLERK/SPECIALIST Work Phone: [facility] Work Phone: Payers Date Payer Category Payer Unknown [id number] 2018 Unknown LEI LEWIS HORACEManohar RITESH PPO [id number] 2018-Present [phone] [address] [place] [address] PPO [id number] 2018 Unknown [id number] Social History Date Type Detail Facility Start: 10-20-2012 End: 02-11-2022 Tobacco smoking status NHIS Ex-smoker [facility] Work Phone: End: 04-30-2011 History of tobacco use Current smoker [facility] Work Phone: End: 04-30-2011 History of tobacco use Cigarette Smoker [facility] Work Phone: Start: 10-20-2012 End: 03-15-2022 Cigarettes smoked current (pack per day) - Reported 0.5 [facility] Start: 10-20-2012 End: 02-11-2022 Tobacco use and exposure Smokeless tobacco non-user [facility] Work Phone: Start: 06-27-2021 End: 03-16-2022 Alcohol intake Current drinker of alcohol (finding) [facility] Start: 10-17-2019 End: 02-04-2022 History SDOH Alcohol Frequency 3 [facility] Start: 10-17-2019 End: 02-04-2022 History SDOH Alcohol Std Drinks 2 [facility] Start: 10-06-2011 History SDOH Alcohol Comment occasional [facility] Start: 10-17-2019 End: 02-04-2022 History SDOH Social Connections Phone 5 [facility] Start: 01-09-2020 End: 02-04-2022 History SDOH Social Connections Get Together 98 [facility] Start: 10-17-2019 End: 02-04-2022 History SDMT Social Connections Meetings 1 [facility] Start: 10-17-2019 Education 17 [facility] Start: 1970 Sex Assigned At Female C [facility] Start: 07-25-2021 End: 09-22-2021 Exposure to SARS-CoV-2 (event) Not sure [facility] Start: 02-04-2022 History SDOH Social Connections Living 8 [facility] Start: 02-04-2022 End: 03-15-2022 Social connection and isolation panel [facility] How often do you att end denominational or mandaen services? Patient refused [facility] Are you now , , , , never or living with a partner? Living with partner [facility] How often to you hav e a drink containing alcohol? 2-4 times a month [facility] How many standard drinks containing alcohol do you have on a typical day? 1 or 2 [facility] How often do you hav e 6 or more drinks on 1 occasion? Never [facility] Do you feel stress - tense, restless, nervous, or anxious, or unable to sleep at night because your mind is troubled all the time - these days [OSQ] Not at all [facility] (I/We) worried missy er (my/our) food would run out before (I/we) got money to buy more. Never true [facility] In the past 12 month s, was there a time when you were not able to pay the mortgage or rent on time? No [facility] Start: 01-09-2020 Gender identity Identifies as female gender (finding) [facility] Start: 01-09-2020 Sexual orientation Heterosexual (samir stephen) [facility] Medical Equipment Procedure Code Equipment Code Equipment Origin al Text Equipment Identifier Dates Check blood suga r twice a day and as needed Start: 03-31-2022 End: 04-14-2022 Clinical Notes 12-27-2018 to 02-14-2023 Telephone Encounter - Cecille Block Ma - 11/05/2022 9:15 AM EDTTelephone Encounter - Antonio Hui MD - 11/05/2022 9:01 AM EDTChristopher Maicol Hui MD - 08/12/2022 4:21 PM EDT Note Date & Type Note Facility 02-14-2023 Note HNO ID: [id number] Author: Antonio Hui MD Service: ? Author Type: Physician Type: Progress Notes Filed: 02/19/2023 6:38 AM Note Text: Chief Complaint Patient presents with: Follow Up: 6 month HPI Malik Rhoades is a 52 year old female who presents here today for Above Complaints. DIABETES MELLITUS: Ms. Rhoades was last seen 6 months ago. Since our last visit she denies excessive thirst or increased frequency of urination, numbness, tingling or pain in extremities, new or unusual visual symptoms, and low sugar/hypoglycemic reactions. Follows a diabetic diet most of the time. She is compliant with medication(s) and is tolerating med(s) without any side effects. She reports checking her glucose on weekdays schedule with sugars in the <110 range. Patient's last HgA1C was 5 on 12/23. In scanned records. Hemoglobin A1C (%) Date Value 11/09/2022 5.3 02/04/2022 5.3 01/31/2021 5.6 08/18/2020 5.8 ) Last Ophthalmology exam was more than 12 months, but has appointment in February. Last Podiatry exam was within the past 12 months Weight down another 6 lbs in the last 6 months with [facility]. Interested in panniculectomy due to raw skin and pain under her pannus along with itching and rash. Treating with OTC Lotrimin cream without improvement. Has also tried anti-perspirant without improvement. BP well controlled on current regimen . Patient s/p bladder sling in November without complications. Completed by Dr. Christiansen. Records not available. Urinary incontinence has resolved. Past medical history, appointments, medications, allergies reviewed. Previous Medical History PAST MEDICAL HISTORY Diagnosis Date Acute meniscal tear of left knee 2013 s/p repair DDD (degenerative disc disease), cervical DDD (degenerative disc disease), lumbar [facility] Castillo Diabetes mellitus type II (HCC) Endometriosis GERD (gastroesophageal reflux disease) Hot flashes Hyperlipidemia Hypertension Labral tear of hip, degenerative left hip, Seeing ortho Morbid obesity with BMI of 40.0-44.9, adult (HCC) Plantar fasciitis of right foot 2013 s/p plantar fasciotomy Seasonal allergies Uterine fibroid s/p hysterectomy Previous Surgical History PAST SURGICAL HISTORY Procedure Laterality Date COLONOSCOPY 09/22/2021 repeat in 10 years HYSTERECTOMY HX total robotic hysterectomy, LSO KNEE ARTHROSCOPY Left 2013 meniscal tear LAPS ABD PRTMANDOMENTUM DX W/WO SPEC BR/WA SPX Laparoscopy for endometriosis PAST SURGICAL HISTORY OF Left 02/12/2021 Left hip scope with lbral repaire aceabuloplasty debridemtn of ossified labrum chondropslasty synovectomy femoroplasty and ligamentum teres debridement with capsular closure PAST SURGICAL HISTORY OF Right 2015 meniscal tear REDUCTION OF LARGE BREAST 07/2022 SCOPE, PLANTAR FASCIOTOMY Right 2013 Family History FAMILY HISTORY Problem Relation Age of Onset Hypertension Mother Heart Failure Mother 64 Heart Mother stents Hypertension Father Coronary Artery Disease Father 59 MS in 2010- LDa Thyroid Sister Thyroid Sister Heart Maternal Grandmother Rheumatologic disease Paternal Grandmother arthritis Patient Allergies ALLERGIES Allergen Reactions Codeine Anaphylaxis Contrast Dye Anaphylaxis Shellfish Containin* GI Upset Squash GI Upset Sulfa Dyne Anaphylaxis [place] [facility] Upset Current Medications Current Outpatient Medications on File Prior to Visit Medication Sig meloxicam (MOBIC) 15 mg tablet Take 1 tablet by mouth once daily. simvastatin (ZOCOR) 10 mg tablet Take 1 tablet by mouth daily at bedtime. EPINEPHrine (EPIPEN) 0.3 mg/0.3 mL auto-injector 1 INJECTION NEEDED IN THIGH pantoprazole DR (PROTONIX) 40 mg tablet Take 1 tablet by mouth once daily. hydroCHLOROthiazide (HYDRODIURIL, ESIDRIX) 12.5 mg tablet Take 1 tablet by mouth once daily. metFORMIN (GLUCOPHAGE) 500 mg tablet Take 1 tablet by mouth twice daily with meals. . losartan (COZAAR) 50 mg tablet Take two tablets daily Cholecalciferol, Vitamin D3, 25 mcg (1,000 unit) cap Take by mouth. turmeric 400 mg cap Take 1 capsule by mouth once daily. venlafaxine ER (EFFEXOR XR) 75 mg 24 hr capsule Take 1 capsule by mouth once daily. Cetirizine 10 mg cap Take by mouth. Aspirin 81 mg Tab Take 81 mg by mouth once daily. CALCIUM CARBONATE/VITAMIN D3 (CALTRATE 600 + D ORAL) Take by mouth twice daily. tirzepatide (MOUNJARO) 7.5 mg/0.5 mL pen injector Inject 7.5 mg subcutaneously one time a week. tirzepatide (MOUNJARO) 12.5 mg/0.5 mL pen injector Inject 12.5 mg subcutaneously one time a week. Blood-Glucose Meter (CONTOUR NEXT ONE METER) Check blood sugar twice daily and as needed blood sugar diagnostic (CONTOUR NEXT TEST STRIPS) test strip Check blood sugar twice a day and as needed ondansetron orally disintegrating (ZOFRAN ODT) 4 mg disintegrating tablet gabapentin (NEURONTIN) 100 mg capsule Take 100 mg by mo (more content not included)... [facility] 11-05-2022 Miscellaneous Notes CAD Best message sent to pt notifying her of message below. Cecille Block Ma Labs reordered. Come in for blood and urine in 1 week. documented in this encounter [facility] 08-30-2022 Miscellaneous Notes Patient has been identified by name and date of : Pharmacy phones for refill(s): Requested Prescriptions Pending Prescriptions Disp Refills meloxicam (MOBIC) 15 mg tablet 90 tablet 1 Sig: Take 1 tablet by mouth once daily. Date of last office visit in primary care: 08/12/22 Last 2 Encounter Wt Readings: Date: Wt: 08/12/2022 106 kg (233 lb 9.6 oz) 03/16/2022 114.8 kg (253 lb) Previous labs/tests for medication: Not applicable Please advise. Thank you. Suzy Meier LPN documented in this encounter [facility] 08-20-2022 Miscellaneous Notes Addended by: ODETTE OCAMPO on: 08/20/2022 02:26 PM Modules accepted: Orders documented in this encounter [facility] 08-17-2022 Miscellaneous Notes Patient active [employer]. Patient notified via [employer] message. The following approved medication requests have been transmitted electronically. Requested Prescriptions Signed Prescriptions Disp Refills tirzepatide (MOUNJARO) 12.5 mg/0.5 mL pen injector 6 mL 1 Sig: Inject 12.5 mg subcutaneously one time a week. Lena Marquis MA 90 day rx for 12.5 mg mounjaro sent as requested. documented in this encounter [facility] 08-12-2022 Note HNO ID: [id number] Author: Antonio Hui MD Service: ? Author Type: Physician Type: Progress Notes Filed: 08/14/2022 11:11 AM Note Text: Chief Complaint Patient presents with: Follow Up: 6 month HPI Malik Rhoades is a 52 year old female who presents here today for Above Complaints. DIABETES MELLITUS: Ms. Rhoades was last seen 6 months ago. Since our last visit she denies excessive thirst or increased frequency of urination, numbness, tingling or pain in extremities, new or unusual visual symptoms, and low sugar/hypoglycemic reactions. Follows a diabetic diet most of the time. She is compliant with medication(s) and is tolerating med(s) without any side effects. She reports checking her glucose on a once a day schedule with sugars in the fasting <120 range. 90 day average 107. Patient's last HgA1C was Hemoglobin A1C (%) Date Value 02/04/2022 5.3 08/03/2021 5.7 01/31/2021 5.6 08/18/2020 5.8 ) Last Ophthalmology exam was within the past 12 months Last Podiatry exam was more than 12 months ago. Down 20 lbs with Mounjaro. States that she does not think about food as much anymore, but does not feel like her appetite has changed much. Exercising 3-5 days per week and making smarter food choices. Would like to get down to 175 lbs. Breast reduction last week with Dr. Martin at [facility] without complications. Has follow up in 1 week. Has to sleep on her back for 4 weeks. Does have some swelling on left breast she would like checked today. No redness, fever/chills, drainage. Wearing compression bra 20/09. Past medical history, appointments, medications, allergies reviewed. Previous Medical History PAST MEDICAL HISTORY Diagnosis Date Acute meniscal tear of left knee 2013 s/p repair DDD (degenerative disc disease), cervical DDD (degenerative disc disease), lumbar [facility] Castillo Diabetes mellitus type II (HCC) Endometriosis GERD (gastroesophageal reflux disease) Hot flashes Hyperlipidemia Hypertension Labral tear of hip, degenerative left hip, Seeing ortho Morbid obesity with BMI of 40.0-44.9, adult (HCC) Plantar fasciitis of right foot 2013 s/p plantar fasciotomy Seasonal allergies Uterine fibroid s/p hysterectomy Previous Surgical History PAST SURGICAL HISTORY Procedure Laterality Date COLONOSCOPY 09/22/2021 repeat in 10 years HYSTERECTOMY HX total robotic hysterectomy, LSO KNEE ARTHROSCOPY Left 2013 meniscal tear LAPS ABD PRTMANDOMENTUM DX W/WO SPEC BR/WA SPX Laparoscopy for endometriosis PAST SURGICAL HISTORY OF Left 02/12/2021 Left hip scope with lbral repaire aceabuloplasty debridemtn of ossified labrum chondropslasty synovectomy femoroplasty and ligamentum teres debridement with capsular closure PAST SURGICAL HISTORY OF Right 2016 meniscal tear SCOPE, PLANTAR FASCIOTOMY Right 2014 Family History FAMILY HISTORY Problem Relation Age of Onset Hypertension Mother Heart Failure Mother 64 Heart Mother stents Hypertension Father Coronary Artery Disease Father 59 MS in 2010- LDa Thyroid Sister Thyroid Sister Heart Maternal Grandmother Rheumatologic disease Paternal Grandmother arthritis Patient Allergies ALLERGIES Allergen Reactions Hood GI Upset Codeine Anaphylaxis Contrast Dye Anaphylaxis Shellfish Containin* GI Upset Squash GI Upset Strawberries Other: See Comments nose and mouth tingle Sulfa Dyne Anaphylaxis [place] [facility] Upset Current Medications Current Outpatient Medications on File Prior to Visit Medication Sig tirzepatide (MOUNJARO) 12.5 mg/0.5 mL pen injector Inject 12.5 mg subcutaneously one time a week. meloxicam (MOBIC) 15 mg tablet Take 1 tablet by mouth once daily. Blood-Glucose Meter (CONTOUR NEXT ONE METER) Check blood sugar twice daily and as needed blood sugar diagnostic (CONTOUR NEXT TEST STRIPS) test strip Check blood sugar twice a day and as needed EPINEPHrine (EPIPEN) 0.3 mg/0.3 mL auto-injector 1 INJECTION NEEDED IN THIGH pantoprazole DR (PROTONIX) 40 mg tablet Take 1 tablet by mouth once daily. hydroCHLOROthiazide (HYDRODIURIL, ESIDRIX) 12.5 mg tablet Take 1 tablet by mouth once daily. metFORMIN (GLUCOPHAGE) 500 mg tablet Take 1 tablet by mouth twice daily with meals. . losartan (COZAAR) 50 mg tablet Take two tablets daily simvastatin (ZOCOR) 10 mg tablet Take 1 tablet by mouth daily at bedtime. tirzepatide (MOUNJARO) 10 mg/0.5 mL pen injector Inject 10 mg subcutaneously one time a week. ondansetron orally disintegrating (ZOFRAN ODT) 4 mg disintegrating tablet Cholecalciferol, Vitamin D3, 25 mcg (1,000 unit) cap Take by mouth. turmeric 400 mg cap Take 1 capsule by mouth once daily. gabapentin (NEURONTIN) 100 mg capsule Take 100 mg by mouth three times daily. glucosamine sulfate (GLUCOSAMINE ORAL) Take by mouth twice daily. venlafaxine ER (EFFEXOR XR) 75 mg 24 hr capsule Take 1 capsule by mouth once daily. Ce (more content not included)... [facility] 08-12-2022 History of Present illness Narrative Chief Complaint Patient presents with: Follow Up: 6 month HPI Malik Rhoades is a 52 year old female who presents here today for Above Complaints. DIABETES MELLITUS: Ms. Rhoades was last seen 6 months ago. Since our last visit she denies excessive thirst or increased frequency of urination, numbness, tingling or pain in extremities, new or unusual visual symptoms, and low sugar/hypoglycemic reactions. Follows a diabetic diet most of the time. She is compliant with medication(s) and is tolerating med(s) without any side effects. She reports checking her glucose on a once a day schedule with sugars in the fasting <120 range. 90 day average 107. Patient's last HgA1C was Hemoglobin A1C (%) Date Value 02/04/2022 5.3 08/03/2021 5.7 01/31/2021 5.6 08/18/2020 5.8 ) Last Ophthalmology exam was within the past 12 months Last Podiatry exam was more than 12 months ago. Down 20 lbs with Mounjaro. States that she does not think about food as much anymore, but does not feel like her appetite has changed much. Exercising 3-5 days per week and making smarter food choices. Would like to get down to 175 lbs. Breast reduction last week with Dr. Martin at [facility] without complications. Has follow up in 1 week. Has to sleep on her back for 4 weeks. Does have some swelling on left breast she would like checked today. No redness, fever/chills, drainage. Wearing compression bra 20/09. Past medical history, appointments, medications, allergies reviewed. Previous Medical History PAST MEDICAL HISTORY Diagnosis Date Acute meniscal tear of left knee 2013 s/p repair DDD (degenerative disc disease), cervical DDD (degenerative disc disease), lumbar [facility] Castillo Diabetes mellitus type II (HCC) Endometriosis GERD (gastroesophageal reflux disease) Hot flashes Hyperlipidemia Hypertension Labral tear of hip, degenerative left hip, Seeing ortho Morbid obesity with BMI of 40.0-44.9, adult (HCC) Plantar fasciitis of right foot 2013 s/p plantar fasciotomy Seasonal allergies Uterine fibroid s/p hysterectomy Previous Surgical History PAST SURGICAL HISTORY Procedure Laterality Date COLONOSCOPY 09/22/2021 repeat in 10 years HYSTERECTOMY HX total robotic hysterectomy, LSO KNEE ARTHROSCOPY Left 2013 meniscal tear LAPS ABD PRTM&OMENTUM DX W/WO SPEC BR/WA SPX Laparoscopy for endometriosis PAST SURGICAL HISTORY OF Left 02/12/2021 Left hip scope with lbral repaire aceabuloplasty debridemtn of ossified labrum chondropslasty synovectomy femoroplasty and ligamentum teres debridement with capsular closure PAST SURGICAL HISTORY OF Right 2015 meniscal tear SCOPE, PLANTAR FASCIOTOMY Right 2013 Family History FAMILY HISTORY Problem Relation Age of Onset Hypertension Mother Heart Failure Mother 64 Heart Mother stents Hypertension Father Coronary Artery Disease Father 59 MS in 2010- LDa Thyroid Sister Thyroid Sister Heart Maternal Grandmother Rheumatologic disease Paternal Grandmother arthritis Patient Allergies ALLERGIES Allergen Reactions Hood GI Upset Codeine Anaphylaxis Contrast Dye Anaphylaxis Shellfish Containin* GI Upset Squash GI Upset Strawberries Other: See Comments nose and mouth tingle Sulfa Dyne Anaphylaxis [place] [facility] Upset Current Medications Current Outpatient Medications on File Prior to Visit Medication Sig tirzepatide (MOUNJARO) 12.5 mg/0.5 mL pen injector Inject 12.5 mg subcutaneously one time a week. meloxicam (MOBIC) 15 mg tablet Take 1 tablet by mouth once daily. Blood-Glucose Meter (CONTOUR NEXT ONE METER) Check blood sugar twice daily and as needed blood sugar diagnostic (CONTOUR NEXT TEST STRIPS) test strip Check blood sugar twice a day and as needed EPINEPHrine (EPIPEN) 0.3 mg/0.3 mL auto-injector 1 INJECTION NEEDED IN THIGH pantoprazole DR (PROTONIX) 40 mg tablet Take 1 tablet by mouth once daily. hydroCHLOROthiazide (HYDRODIURIL, ESIDRIX) 12.5 mg tablet Take 1 tablet by mouth once daily. metFORMIN (GLUCOPHAGE) 500 mg tablet Take 1 tablet by mouth twice daily with meals. . losartan (COZAAR) 50 mg tablet Take two tablets daily simvastatin (ZOCOR) 10 mg tablet Take 1 tablet by mouth daily at bedtime. tirzepatide (MOUNJARO) 10 mg/0.5 mL pen injector Inject 10 mg subcutaneously one time a week. ondansetron orally disintegrating (ZOFRAN ODT) 4 mg disintegrating tablet Cholecalciferol, Vitamin D3, 25 mcg (1,000 unit) cap Take by mouth. turmeric 400 mg cap Take 1 capsule by mouth once daily. gabapentin (NEURONTIN) 100 mg capsule Take 100 mg by mouth three times daily. glucosamine sulfate (GLUCOSAMINE ORAL) Take by mouth twice daily. venlafaxine ER (EFFEXOR XR) 75 mg 24 hr capsule Take 1 capsule by mouth once daily. Cetirizine 10 mg cap Take by mouth. Aspirin 81 mg Tab Take 81 mg by mouth once daily. CALCIUM CARBONATE/VITAMIN D3 (CALTRATE 600 + D ORAL) Take by mouth twice daily. No current facility-administered medications on file prior to visit. Social History Social History Tobacco Use Smoking status: Former Packs/day: 0.50 Years: 10.00 Pack years: 5.00 Types: Cigarettes Quit date: 04/30/2011 Years since quittin.2 Smokeless tobacco: Never Vaping Use Vaping Use: Never used Substance Use Topics Alcohol use: Yes Comment: occasional Drug use: No Review of Symptoms REVIEW OF SYSTEMS GENERAL: No weight loss, malaise or fevers RESPIRATORY: Negative for cough, hemoptysis, wheezing, COPD, dyspnea or shortness of breath CARDIOVASCULAR: Negative for chest pain, leg swelling, hypertension, CHF or palpitations GI: No nausea, vomiting, or diarrhea SKIN: See HPI EXAM: BP 124/70 Pulse 83 Resp 16 Wt 106 kg (233 lb 9.6 oz) SpO2 96% BMI 36.59 kg/m General Appearance: Well appearing, alert, in no acute distress, well-hydrated, well nourished. Skin: Skin color, texture, turgor normal, no suspicious rashes or lesions. Lungs: Lungs clear to auscultation. No wheezing, rhonchi, rales.. Heart: RRR without murmur, gallop, or rubs. No ectopy. Breast: Incision sites well approximated with bruising in mid stage of healing. Mildly TTP. Warm to touch, but this is symmetrical. No apparent cellulitis, abscess or purulent drainage. Patient refused topographical surveyor for this exam. Abdomen: Normal abdominal exam, Abdomen soft, non-tender. Bowel sounds normal. No masses, organomegaly. Extremities: No deformities, edema, skin discoloration, clubbing or cyanosis. Good capillary refill. . Feet: Shoes and socks removed, No deformities, ulcers, calluses, normal distal pulses, and sensitive to 10 gm monofilament . Health Maintenance List HEPATITIS C SCREENING Never done HIV SCREENING Never done DILATED RETINAL EXAM due on 12/25/2021 URINE ALBUMIN:CREATININE RATIO due on 01/31/2022 DIABETIC FOOT EXAM due on 02/03/2022 DEPRESSION ASSESSMENT due on 02/28/2022 MAMMOGRAM due on 07/09/2022 HBA1C due on 08/05/2022 PNEUMOCOCCAL(1 - PCV) due on 02/11/2023 DTAP,TDAP,TD(2 - Td or Tdap) due on 10/20/2022 LDL CHOLESTEROL due on 02/04/2023 ANNUAL PCP TEAM CHRONIC DISEASE VISIT due on 02/11/2023 BP CONTROLLED (<130/80) due on 03/16/2023 COLORECTAL CANCER SCREENING due on 09/23/2031 HEPATITIS B Completed INFLUENZA Completed SHINGRIX VACCINE Completed COVID-19 VACCINE Completed PAP TESTING Discontinued HPV TESTING Discontinued Data reviewed Component Latest Ref Rng & Units 02/04/2022 Protein, Total 6.3 - 8.0 g/dL 7.3 Albumin 3.9 - 4.9 g/dL 4.6 Calcium 8.5 - 10.2 mg/dL 9.3 Bilirubin, Total 0.2 - 1.3 mg/dL 0.2 Alkaline Phosphatase 34 - 123 U/L 76 AST 13 - 35 U/L 19 ALT 7 - 38 U/L 29 Glucose 74 - 99 mg/dL 102 (H) BUN 7 - 21 mg/dL 16 Creatinine 0.58 - 0.96 mg/dL 0.66 Sodium 136 - 144 mmol/L 139 Potassium 3.7 - 5.1 mmol/L 3.6 (L) Chloride 97 - 105 mmol/L 101 CO2 22 - 30 mmol/L 27 Anion Gap 9 - 18 mmol/L 11 eGFR >=60 mL/min/1.73m 105 Total Cholesterol, Nonfasting <200 mg/dL 151 Triglycerides, Nonfasting <150 mg/dL 132 HDL Cholesterol, Nonfasting >39 mg/dL 46 LDL Cholesterol, Nonfasting <100 mg/dL 79 Non HDL Cholesterol, Nonfasting <130 mg/dL 105 VLDL Cholesterol, Nonfasting <30 mg/dL 26 Total Chol/HDL Ratio, Nonfasting <5.10 mg/dL 3.28 LDL/HDL Ratio, Nonfasting <2.54 mg/dL 1.72 Hemoglobin A1C 4.3 - 5.6 % 5.3 Estimated Average Glucose mg/dL 105 TSH 0.270 - 4.200 mIU/L 2.260 Microsomal Antibody <5.6 IU/mL 1.2 ASSESSMENT/PLAN: 1. Diabetes mellitus type II (HCC) - ICD9: 250.00, ICD10: E11.9 (primary diagnosis) - Controlled - Continue current medications - Blood glucose monitoring on a once daily schedule - Counseled on healthy diet and regular exercise - Discussed need for and benefit of weight loss. BMI 36.59 kg/(m^2) - Discussed diabetic education issues of diabetes complications and monitoring required, hypoglycemic/hyperglycemic symptoms, and medication-specific side effects and monitoring - Follow up in 6 months, sooner should any other issues arise. - HGB A1C - COMP METABOLIC PANEL - ALBUMIN/CREAT RATIO RND UR - TIRZEPATIDE 10 MG/0.5 ML SUBCUTANEOUS PEN INJECTOR 2. Macromastia - ICD9: 611.1, ICD10: N62 S/p breast reduction. Healing well with expected pain and some swelling without infection or abscess today. Continue recommendations per surgeon. Red flags for re-assessment reviewed with patient in detail. 3. S/P bilateral breast reduction - ICD9: V45.89, ICD10: Z98.890 See above. 4. Primary hypertension - ICD9: 401.9, ICD10: I10 - Controlled - Continue current medications - Recommend home blood pressure monitoring, to bring results to next visit - Encouraged sodium restriction, DASH or Mediterranean diet - Recommend regular aerobic exercise 5. Hyperlipidemia, unspecified hyperlipidemia type - ICD9: 272.4, ICD10: E78.5 - Controlled - Continue current medications - Counseled on healthy diet and regular exercise 6. Obesity, Class III, BMI 40-49.9 (morbid obesity) (HCC) - ICD9: 278.01, ICD10: E66.01 Weight decreasing - Behavioral intervention and - Pharmacological intervention - TIRZEPATIDE 10 MG/0.5 ML SUBCUTANEOUS PEN INJECTOR 7. Encounter for hepatitis C screening test for low risk patient - ICD9: V73.89, ICD10: Z11.59 - HEP C AB IA W/CONF SCRN Antonio Hui MD documented in this encounter [facility] 08-11-2022 Note Patient Outreach (IN [facility]) MALIK RHOADES ([id number]) 1970 F Date Time Provider Department 08/11/22 ANTONIO HUI During your visit today, we recorded the following information about you: Allergies As of Date: 08/11/2022 Noted Allergy Reaction HOOD 03/13/2018 8 - GI Upset CODEINE 10/06/2011 10 - Anaphylaxis CONTRAST DYE 10/06/2011 10 - Anaphylaxis SHELLFISH CONTAINING PRODUCTS 04/29/2016 8 - GI Upset SQUASH 03/13/2018 8 - GI Upset STRAWBERRIES 03/13/2018 14 - Other: See Comments Comments: nose and mouth tingle SULFA DYNE 10/06/2011 10 - Anaphylaxis [place] 03/13/2018 8 - GI Upset Date Reviewed: 03/16/2022 Reviewed by: Dion Polk APRN.[employer]IM[employer] ADVOCATE CLERK/SPECIALIST - Fully Assessed Visit Diagnosis:Encounter for screening mammogram for breast cancer [Z12.31] Order(s):[facility] SCREENING [[id number]] Order #: [id number] FUTURE Prescriptions as of 08/16/2022 - tirzepatide (MOUNJARO) 10 mg/0.5 mL pen injector Inject 10 mg subcutaneously one time a week. - tirzepatide (MOUNJARO) 12.5 mg/0.5 mL pen injector Inject 12.5 mg subcutaneously one time a week. - meloxicam (MOBIC) 15 mg tablet Take 1 tablet by mouth once daily. - Blood-Glucose Meter (CONTOUR NEXT ONE METER) Check blood sugar twice daily and as needed - blood sugar diagnostic (CONTOUR NEXT TEST STRIPS) test strip Check blood sugar twice a day and as needed - EPINEPHrine (EPIPEN) 0.3 mg/0.3 mL auto-injector 1 INJECTION NEEDED IN THIGH - pantoprazole DR (PROTONIX) 40 mg tablet Take 1 tablet by mouth once daily. - hydroCHLOROthiazide (HYDRODIURIL, ESIDRIX) 12.5 mg tablet Take 1 tablet by mouth once daily. - metFORMIN (GLUCOPHAGE) 500 mg tablet Take 1 tablet by mouth twice daily with meals. . - losartan (COZAAR) 50 mg tablet Take two tablets daily - simvastatin (ZOCOR) 10 mg tablet Take 1 tablet by mouth daily at bedtime. - ondansetron orally disintegrating (ZOFRAN ODT) 4 mg disintegrating tablet - Cholecalciferol, Vitamin D3, 25 mcg (1,000 unit) cap Take by mouth. - turmeric 400 mg cap Take 1 capsule by mouth once daily. - gabapentin (NEURONTIN) 100 mg capsule Take 100 mg by mouth three times daily. - glucosamine sulfate (GLUCOSAMINE ORAL) Take by mouth twice daily. - venlafaxine ER (EFFEXOR XR) 75 mg 24 hr capsule Take 1 capsule by mouth once daily. - Cetirizine 10 mg cap Take by mouth. - Aspirin 81 mg Tab Take 81 mg by mouth once daily. - CALCIUM CARBONATE/VITAMIN D3 (CALTRATE 600 + D ORAL) Take by mouth twice daily. Problem List As Of Date 08/11/2022 Noted Resolved Hypertension [I10] Hyperlipidemia [E78.5] GERD (gastroesophageal reflux disease) [K21.9] Labral tear of hip, degenerative [M24.159] Morbid obesity with BMI of 40.0-44.9, adult (HC* Prediabetes [R73.03] 12/27/2018 DDD (degenerative disc disease), cervical [M50.*09/18/2018 Acute back pain with sciatica [M54.40] 09/18/2018 DDD (degenerative disc disease), lumbar [M51.36] Endometriosis [N80.9] Diabetes mellitus type II (HCC) [E11.9] Encounter Status:Closed by MARIA ISABEL WALKER on 08/16/22 [facility] 07-12-2022 Miscellaneous Notes Latrice with [facility] calls to report that pt would like to start using this mail-in pharmacy. Request was for meloxicam 15 mg tab. Advised Latrice that last rx was 06/21/22 for 3 month supply. Pt is not ready for a new rx at this time. Latrice reports she will advise pt of same. Isidra Chi LPN documented in this encounter [facility] 07-09-2022 Miscellaneous Notes PA approved and patient was left voicemail on cell phone CaseId:[id number];Status:Approved;Re view Type:Prior Auth;Coverage Start Date:06/09/2022;Coverage End Date:07/09/2023; Kimmie Chávez Ma Pt wrote into office via [employer] that [facility] is wanting PA on medication, but her local pharmacy didn't need one. Pt notified this has been routed to PA Nurse. Cecille Block Ma documented in this encounter [facility] 06-28-2022 Miscellaneous Notes See message from pt. Cecille Block Ma documented in this encounter [facility] 06-21-2022 Miscellaneous Notes See MC message. Eileen Nagy LPN I can reorder the meloxicam- where would she like this sent? Odette Ocampo APRN.DEEPALI documented in this encounter [facility] 05-21-2022 Miscellaneous Notes Spoke with pt and information listed below given. Pt verbalizes understanding. Lynn Mathews LPN That's great. Prescription sent. Odette Ocampo APRN.CNP Patient would like it sent to [facility] at [address] Says her lowest BS was 99 and that only occurred once. Eileen Nagy LPN So is she wanting the 12.5 mg sent to [facility]. Blood sugar average looks good- has she had any lows? Odette Ocampo APRN.DEEPALI Pt calling and she has not been able to get Monjaro 12.5 sent to [facility], No one has the 10. She wanted you to know her blood sugars over the past 60 days have averaged 108 twice a day, Please let her now when this has been . Lynn DE LEÓN Patient has been identified by name and date of : Yes, Provider Dr. Hui Date 05/17/22 Time 12:06 pm Patient phones for refill(s): Requested Prescriptions Pending Prescriptions Disp Refills tirzepatide (MOUNJARO) 12.5 mg/0.5 mL pen injector 4 Each 0 Sig: Inject 12.5 mg subcutaneously one time a week. Date of last office visit in primary care: 02/11/22 next apt 08/12/22 Last 2 Encounter Wt Readings: Date: Wt: 03/16/2022 114.8 kg (253 lb) 02/11/2022 121.6 kg (268 lb) Previous labs/tests for medication: Diabetes: Hemoglobin A1C (%) Date Value 02/04/2022 5.3 08/03/2021 5.7 01/31/2021 5.6 08/18/2020 5.8 Please advise. Thank you. Lynn Mathews LPN documented in this encounter [facility] 05-12-2022 Note HNO ID: [id number] Author: BRAXTON Ernst) Service: ? Author Type: Technologist Type: Progress Notes Filed: 05/12/2022 11:47 AM Note Text: Radiology Service Progress Note PATIENT NAME: Malik Rhoades DATE OF SERVICE: May 12, 2022 TIME: 11:29 AM PATIENT IDENTITY VERIFICATION COMPLETED USING TWO (2) IDENTIFIERS: Name and Date of confirmed by patient verbally. FALL SCREENING: Has the patient had 2 falls in the last year or 1 fall with injury or currently using an Ambulatory Assistive Device (Walker, Cane, Wheelchair, Crutches, etc.)? No PATIENT GENDER DATA: Female. status: : No status: NO. PATIENT RELEVANT IMPLANT DATA REVIEWED: Not Applicable RADIOLOGY DEPARTMENT: Bone Density PERIPHERAL IV DATA: Not applicable SIGNED BY: RT Klever(Tonya) May 12, 2022 11:29 AM [facility] 05-12-2022 History of Present illness Narrative Radiology Service Progress Note PATIENT NAME: Malik Rhoades DATE OF SERVICE: May 12, 2022 TIME: 11:29 AM PATIENT IDENTITY VERIFICATION COMPLETED USING TWO (2) IDENTIFIERS: Name and Date of confirmed by patient verbally. FALL SCREENING: Has the patient had 2 falls in the last year or 1 fall with injury or currently using an Ambulatory Assistive Device (Walker, Cane, Wheelchair, Crutches, etc.)? No PATIENT GENDER DATA: Female. status: : No status: NO. PATIENT RELEVANT IMPLANT DATA REVIEWED: Not Applicable RADIOLOGY DEPARTMENT: Bone Density PERIPHERAL IV DATA: Not applicable SIGNED BY: RT Klever(Tonya) May 12, 2022 11:29 AM documented in this encounter [facility] 03-31-2022 Miscellaneous Notes Prescription for the Mounjaro 12.5 was sent to [facility] then cancelled at [facility] thru escript. I gave [facility] the prescription verbally. I called [facility] and cancelled prescription there. Pt notified prescription at [facility]. Lynn Mathews LPN Please call patient and let her know I have sent in the increased dose. She needs to monitor blood sugars and notify us if she is getting low blood sugars or feeling symptomatic. Do not skip meals and eat well balanced diet. Dr. Hui recommend she go back to 10 mg when it becomes available. I sent the prescription to [facility]. Please cancel the one [facility] to [facility] Odette Ocampo APRN.DEEPALI Pt called and has 1 injection left on her Mounjaro and now it is on back order till April. Pt asking if you would bump her up to 12.5 and she has found 1 pharmacy that has this and they are holding it for her. [facility] has it. Please advise pt. Lynn Mathews LPN documented in this encounter [facility] 03-23-2022 Miscellaneous Notes [facility] to check on PA status since it shows waiting for payer response [facility] could not find PA in system so did and PA is not needed. Called [facility] to change quantity dispense will only cover one month a time. Kimmie Chávez Ma Electronic PA submitted Kimmie Chávez Ma Dr. Hui, I sent in a renewal for all Rx except the Mounjaro as our insurance has changed and we are required to use [facility]. I did not include MJ because while it may be covered, it does require a coverage review and a PA. Per the [facility] website, the prescriber needs to call [phone] for a coverage review. Relevant information is below: My first does was November 21, 2021 RxBIN: [id number] RxPCN: [id number] RxGrp: [id number] Apiculture Teacher: [id number] ID: [id number] Thank you for all that you do and in advance for helping me get this approval. Malik documented in this encounter [facility] 03-16-2022 Influenza virus A and B RNA and SARS-CoV-2 (COVID-19) N gene panel WILDER+probe (Resp) COVID 19 RESULT: SARS-CoV-2 (Agent of COVID-19) Not Detected by RT-PCR or equivalent method. This test was developed and its performance characteristics determined by [facility]'s [facility] [place]. This test has been authorized by FDA under an Emergency Use Authorization (EUA). This test has been validated in accordance with the FDA's Guidance Document Policy for Diagnostics Testing in Laboratories Certified to Perform High Complexity Testing under CLIA prior to Emergency use Authorization for Coronavirus Disease 2019 during the Public Health Emergency issued on April 28, 2019. Test performed by [facility], [facility] [place], [address] [place] [address]. INFLUENZA A PCR: Negative for Influenza A by RT-PCR INFLUENZA B PCR: Negative for Influenza B by RT-PCR [facility] documented as of this encounter (statuses as of 06/27/2021) [facility] History of Past illness Narrative* Problem Noted Date Resolved Date Prediabetes 12/27/2018 documented as of this encounter (statuses as of 08/05/2021) [facility] History of Past illness Narrative* Problem Noted Date Resolved Date Prediabetes 12/27/2018 documented as of this encounter (statuses as of 08/11/2021) [facility] History of Past illness Narrative* Problem Noted Date Resolved Date Prediabetes 12/27/2018 documented as of this encounter (statuses as of 08/11/2021) [facility] History of Past illness Narrative* Problem Noted Date Resolved Date Prediabetes 12/27/2018 documented as of this encounter (statuses as of 08/24/2021) [facility] History of Past illness Narrative* Problem Noted Date Resolved Date Prediabetes 12/27/2018 documented as of this encounter (statuses as of 08/26/2021) [address]30-2019 History of Past illness Narrative* Problem Noted Date Resolved Date Prediabetes 12/27/2018 documented as of this encounter (statuses as of 09/01/2021) [facility] History of Past illness Narrative* Problem Noted Date Resolved Date Prediabetes 12/27/2018 documented as of this encounter (statuses as of 09/18/2021) [address]30-2019 History of Past illness Narrative* Problem Noted Date Resolved Date Prediabetes 12/27/2018 documented as of this encounter (statuses as of 09/23/2021) [address]30-2019 History of Past illness Narrative* Problem Noted Date Resolved Date Prediabetes 12/27/2018 documented as of this encounter (statuses as of 09/25/2021) [address]-2019 History of Past illness Narrative* Problem Noted Date Resolved Date Prediabetes 12/27/2018 documented as of this encounter (statuses as of 10/01/2021) [facility] History of Past illness Narrative* Problem Noted Date Resolved Date Prediabetes 12/27/2018 documented as of this encounter (statuses as of 11/20/2021) [address]-2019 History of Past illness Narrative* Problem Noted Date Resolved Date Prediabetes 12/27/2018 documented as of this encounter (statuses as of 02/16/2022) [address]-2019 History of Past illness Narrative* Problem Noted Date Resolved Date Prediabetes 12/27/2018 documented as of this encounter (statuses as of 03/09/2022) [address]-2019 History of Past illness Narrative* Problem Noted Date Resolved Date Prediabetes 12/27/2018 documented as of this encounter (statuses as of 03/10/2022) [address]-2019 History of Past illness Narrative* Problem Noted Date Resolved Date Prediabetes 12/27/2018 documented as of this encounter (statuses as of 03/24/2022) [facility] History of Past illness Narrative* Problem Noted Date Resolved Date Prediabetes 12/27/2018 documented as of this encounter (statuses as of 03/31/2022) [facility] History of Past illness Narrative* Problem Noted Date Resolved Date Prediabetes 12/27/2018 documented as of this encounter (statuses as of 04/14/2022) [facility] History of Past illness Narrative* Problem Noted Date Resolved Date Prediabetes 12/27/2018 documented as of this encounter (statuses as of 05/21/2022) [facility] History of Past illness Narrative* Problem Noted Date Resolved Date Prediabetes 12/27/2018 documented as of this encounter (statuses as of 06/18/2022) [address]2019 History of Past illness Narrative* Problem Noted Date Resolved Date Prediabetes 12/27/2018 documented as of this encounter (statuses as of 06/22/2022) [facility] History of Past illness Narrative* Problem Noted Date Resolved Date Prediabetes 12/27/2018 documented as of this encounter (statuses as of 06/29/2022) [facility] History of Past illness Narrative* Problem Noted Date Resolved Date Prediabetes 12/27/2018 documented as of this encounter (statuses as of 07/09/2022) [facility] History of Past illness Narrative* Problem Noted Date Resolved Date Prediabetes 12/27/2018 documented as of this encounter (statuses as of 07/12/2022) [facility] History of Past illness Narrative* Problem Noted Date Resolved Date Prediabetes 12/27/2018 documented as of this encounter (statuses as of 08/14/2022) [facility] History of Past illness Narrative* Problem Noted Date Resolved Date Prediabetes 12/27/2018 documented as of this encounter (statuses as of 08/16/2022) [address]2019 History of Past illness Narrative* Problem Noted Date Resolved Date Prediabetes 12/27/2018 documented as of this encounter (statuses as of 08/17/2022) [facility] History of Past illness Narrative* Problem Noted Date Resolved Date Prediabetes 12/27/2018 documented as of this encounter (statuses as of 08/18/2022) [facility] History of Past illness Narrative* Problem Noted Date Resolved Date Prediabetes 12/27/2018 documented as of this encounter (statuses as of 08/20/2022) [facility] History of Past illness Narrative* Problem Noted Date Resolved Date Prediabetes 12/27/2018 documented as of this encounter (statuses as of 08/30/2022) [facility] History of Past illness Narrative* Problem Noted Date Diagnosed Date Resolved Date Prediabetes 12/27/2018 documented as of this encounter (statuses as of 11/05/2022) [facility] History of Past illness Narrative* Problem Noted Date Diagnosed Date Resolved Date Prediabetes 12/27/2018 documented as of this encounter (statuses as of 01/03/2023) [facility] note* Diagnosis S/P epidural steroid injection- Primary Other postprocedural status Neck pain Cervicalgia Dizziness Dizziness and giddiness Intractable vomiting Persistent vomiting [facility] Diagnosis Diabetes mellitus type II (HCC)- Primary Primary hypertension Unspecified essential hypertension Hyperlipidemia, unspecified hyperlipidemia type Gastroesophageal reflux disease, unspecified whether esophagitis present Morbid obesity with BMI of 40.0-44.9, adult (HCC) Morbid obesity DDD (degenerative disc disease), lumbar Degeneration of lumbar or lumbosacral intervertebral disc Screening for colon cancer Special screening for malignant neoplasms, colon Need for vaccination Need for prophylactic vaccination and inoculation against unspecified single disease Labral tear of hip, degenerative documented [facility] this encounter [facility] Diagnosis Need for vaccination- Primary Need for prophylactic vaccination and inoculation against unspecified single disease [facility] Diagnosis Large breasts- Primary Hypertrophy of breast [facility] this [facility] Diagnosis Screening for colon cancer Special screening for malignant neoplasms, colon [facility] Diagnosis Screening for colon cancer Special screening for malignant neoplasms, colon documented in this encounter [facility] note* Diagnosis Screening for colon cancer- Primary Special screening for malignant neoplasms, colon documented in this encounter [facility] note* Diagnosis Essential hypertension Unspecified essential hypertension Diabetes mellitus type II (HCC) documented in this encounter [facility] note* Diagnosis Diabetes mellitus type II (HCC) Obesity, Class III, BMI 40-49.9 (morbid obesity) (HCC) Morbid obesity documented in this encounter [facility] note* Diagnosis Essential hypertension Unspecified essential hypertension Diabetes mellitus type II (HCC) documented in this encounter [facility] note* Diagnosis Diabetes mellitus type II (HCC) Obesity, Class III, BMI 40-49.9 (morbid obesity) (HCC) Morbid obesity [facility]* Diagnosis Diabetes mellitus type II (HCC)- Primary documented in this encounter [facility] note* Diagnosis Diabetes mellitus type II (HCC)- Primary Macromastia Hypertrophy of breast S/P bilateral breast reduction Other postprocedural status Primary hypertension Unspecified essential hypertension Hyperlipidemia, unspecified hyperlipidemia type Obesity, Class III, BMI 40-49.9 (morbid obesity) (HCC) Morbid obesity Encounter for hepatitis C screening test for low risk patient documented in this encounter [facility] note* Diagnosis Encounter for screening mammogram for breast cancer documented in this encounter [facility] note* Diagnosis Diabetes mellitus type II (HCC)- Primary Encounter for hepatitis C screening test for low risk patient documented in this encounter [facility] note* Diagnosis Encounter for screening for osteoporosis Special screening for osteoporosis documented in this encounter [facility] for referral (narrative)* Outpatient Procedure (Routine) - Closed Specialty Diagnoses / Procedures Referred By Claire maldonado Referred To Contact [facility] Diagnoses Screening for colon cancer Procedures COLONOSCOPY SCREENING COLONOSCOPY FLX DX W/COLLJ SPEC WHEN PFRMD Francie Laws PA-C [address] [place] [address] [facility] [place] [address] [place] [address] Referral ID Status Reason Start Date Expiration Date V isits Requested Visits Authorized [id number] Closed Auto-Generate d Referral 08/25/2021 08/25/2022 1 1 T [facility] for referral (narrative)* Outpatient Procedure (Routine) - Closed Specialty Diagnoses / Procedures Referred By Claire maldonado Referred To Contact [facility] Diagnoses Screening for colon cancer Procedures COLONOSCOPY SCREENING COLONOSCOPY FLX DX W/COLLJ SPEC WHEN Francie Ocampo PA-C [address] [place] [address] [facility] [place] [address] [place] [address] Referral ID Status Reason Start Date Expiration Date V isits Requested Visits Authorized [id number] Closed Auto-Generate d Referral 08/25/2021 08/25/2022 1 1 T [facility] for referral (narrative)* Diagnostic Procedure Only (Routine) - Pending Review Specialty Diagnoses / Procedures Referred By Claire maldonado Referred To Contact [facility] Diagnoses Encounter for screening mammogram for breast cancer Procedures CHATO SCREENING SCREENING MAMMOGRAPHY BI 2-VIEW BREAST INC CAD Antonio Hui MD [address] [place] [address] [facility] [address] [place] [address] Referral ID Status Reason Start Date Expiration Date Visits Requested Visits Authorized [id number] Pending Review Auto-Generat ed Referral 08/11/2022 09/10/2023 1 1 [facility] for visit Narrative* Outpatient Procedure (Routine) - Closed Specialty Diagnoses / Procedures Referred By Claire t Referred To Contact [facility] Diagnoses Screening for colon cancer Procedures COLONOSCOPY SCREENING COLONOSCOPY FLX DX W/COLLJ SPEC WHEN Francie Ocampo PA-C [address] [place] [address] [facility] [place] [address] [place] [address] Referral ID Status Reason Start Date Expiration Date V isits Requested Visits Authorized [id number] Closed Auto-Generate d Referral 08/25/2021 08/25/2022 1 1 [facility] Reason for Referral Specialty Diagnoses / Procedures Referred By Contac t Referred To Contact General Surgery Diagnoses Screening for colon cancer Procedures CONSULT TO GENERAL SURGERY OFFICE/OUTPATIENT [facility] MDM 60-74 MINUTES Antonio Hui MD [address] [place] [address] Referral ID Status Reason Start Date Expiration Date Visits Requested Visits Authorized [id number] Authorized PCP Requested Referral 08/04/2021 08/04/2022 1 1 Specialty Diagnoses / Procedures Referred By Contac t Referred To Contact Plastic Surgery Diagnoses Large breasts Procedures CONSULT TO PLASTIC SURGERY OFFICE/OUTPATIENT [facility] MDM 60-74 MINUTES Odette Ocampo APRN.[employer]OCATE CLERK/SPECIALIST [address] [place] [address] Referral ID Status Reason Start Date Expiration Date Visits Requested Visits Authorized [id number] Authorized PCP Requested Referral 08/26/2021 08/25/2022 1 1 Specialty Diagnoses / Procedures Referred By Contac t Referred To Contact Odette Ocampo, AMISH.[employer]VOCATE CLERK/SPECIALIST [address] [place] [address] Referral ID Status Reason Start Date Expiration Date Visits Re quested Visits Authorized [id number] Closed 1 1 Referral ID Status Reason Start Date Expiration Date Visits Re quested Visits Authorized [id number] Closed 1 1 Summary Purpose Family History No Family History Records FoundNo Family History Records FoundNo Family History Records Found Advance Directives No Advanced Directives Records FoundDocuments on File Type Date 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 Advance Directive(s) 09/22/2021 10:34 AM Documents on File Type Date Recorded 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 Advance Directive(s) 09/22/2021 10:34 AM Medications Administered Section Inactive Administered Medications - up to 3 most recent administrations Medication Order MAR Action Action Date Dose Rate Site lactated ringers iv infusion 75 mL/hr, INTRAVENOUS, CONTINUOUS, Starting on Tue09/22/21 at 1130, Until Tue09/22/21 at 1255, Preprocedure New Bag/Syringe/Bottle 09/22/2021 11:03 AM EDT 75 mL/hr 75 mL/hr Health Concerns Infection Onset Date Last Indicated Resolved Time COVID-19 Rule-Out 03/16/2022 03/16/2022 03/17/2022 1:59 AM EST Additional Source Comments Source Comments (unrecognize d section and content) In the event this informatio n is protected by the Federal Confidentiality of Alcohol and Drug Abuse Patient Records regulations: The Federal rules restrict any use of the information to criminally investigate or prosecute any alcohol or drug abuse patient.[facility] event this information is protected by the Federal Confidentiality of Alcohol and Drug Abuse Patient Records regulations: The Federal rules restrict any use of the information to criminally investigate or prosecute any alcohol or drug abuse patient.[facility] the event this information is protected by the Federal Confidentiality of Alcohol and Drug Abuse Patient Records regulations: The Federal rules restrict any use of the information to criminally investigate or prosecute any alcohol or drug abuse patient.[facility] the event this information is protected by the Federal Confidentiality of Alcohol and Drug Abuse Patient Records regulations: The Federal rules restrict any use of the information to criminally investigate or prosecute any alcohol or drug abuse patient.[facility] the event this information is protected by the Federal Confidentiality of Alcohol and Drug Abuse Patient Records regulations: The Federal rules restrict any use of the information to criminally investigate or prosecute any alcohol or drug abuse patient.[facility] the event this information is protected by the Federal Confidentiality of Alcohol and Drug Abuse Patient Records regulations: The Federal rules restrict any use of the information to criminally investigate or prosecute any alcohol or drug abuse patient.[facility] the event this information is protected by the Federal Confidentiality of Alcohol and Drug Abuse Patient Records regulations: The Federal rules restrict any use of the information to criminally investigate or prosecute any alcohol or drug abuse patient.[facility] the event this information is protected by the Federal Confidentiality of Alcohol and Drug Abuse Patient Records regulations: The Federal rules restrict any use of the information to criminally investigate or prosecute any alcohol or drug abuse patient.[facility] the event this information is protected by the Federal Confidentiality of Alcohol and Drug Abuse Patient Records regulations: The Federal rules restrict any use of the information to criminally investigate or prosecute any alcohol or drug abuse patient.[facility] the event this information is protected by the Federal Confidentiality of Alcohol and Drug Abuse Patient Records regulations: The Federal rules restrict any use of the information to criminally investigate or prosecute any alcohol or drug abuse patient.[facility] the event this information is protected by the Federal Confidentiality of Alcohol and Drug Abuse Patient Records regulations: The Federal rules restrict any use of the information to criminally investigate or prosecute any alcohol or drug abuse patient.[facility] the event this information is protected by the Federal Confidentiality of Alcohol and Drug Abuse Patient Records regulations: The Federal rules restrict any use of the information to criminally investigate or prosecute any alcohol or drug abuse patient.[facility] the event this information is protected by the Federal Confidentiality of Alcohol and Drug Abuse Patient Records regulations: The Federal rules restrict any use of the information to criminally investigate or prosecute any alcohol or drug abuse patient.[facility] the event this information is protected by the Federal Confidentiality of Alcohol and Drug Abuse Patient Records regulations: The Federal rules restrict any use of the information to criminally investigate or prosecute any alcohol or drug abuse patient.[facility] the event this information is protected by the Federal Confidentiality of Alcohol and Drug Abuse Patient Records regulations: The Federal rules restrict any use of the information to criminally investigate or prosecute any alcohol or drug abuse patient.[facility] the event this information is protected by the Federal Confidentiality of Alcohol and Drug Abuse Patient Records regulations: The Federal rules restrict any use of the information to criminally investigate or prosecute any alcohol or drug abuse patient.[facility] the event this information is protected by the Federal Confidentiality of Alcohol and Drug Abuse Patient Records regulations: The Federal rules restrict any use of the information to criminally investigate or prosecute any alcohol or drug abuse patient.[facility] the event this information is protected by the Federal Confidentiality of Alcohol and Drug Abuse Patient Records regulations: The Federal rules restrict any use of the information to criminally investigate or prosecute any alcohol or drug abuse patient.[facility] the event this information is protected by the Federal Confidentiality of Alcohol and Drug Abuse Patient Records regulations: The Federal rules restrict any use of the information to criminally investigate or prosecute any alcohol or drug abuse patient.[facility] the event this information is protected by the Federal Confidentiality of Alcohol and Drug Abuse Patient Records regulations: The Federal rules restrict any use of the information to criminally investigate or prosecute any alcohol or drug abuse patient.[facility] the event this information is protected by the Federal Confidentiality of Alcohol and Drug Abuse Patient Records regulations: The Federal rules restrict any use of the information to criminally investigate or prosecute any alcohol or drug abuse patient.[facility] the event this information is protected by the Federal Confidentiality of Alcohol and Drug Abuse Patient Records regulations: The Federal rules restrict any use of the information to criminally investigate or prosecute any alcohol or drug abuse patient.[facility]In the event this information is protected by the Federal Confidentiality of Alcohol and Drug Abuse Patient Records regulations: The Federal rules restrict any use of the information to criminally investigate or prosecute any alcohol or drug abuse patient.[facility]In the event this information is protected by the Federal Confidentiality of Alcohol and Drug Abuse Patient Records regulations: The Federal rules restrict any use of the information to criminally investigate or prosecute any alcohol or drug abuse patient.[facility]In the event this information is protected by the Federal Confidentiality of Alcohol and Drug Abuse Patient Records regulations: The Federal rules restrict any use of the information to criminally investigate or prosecute any alcohol or drug abuse patient.[facility]In the event this information is protected by the Federal Confidentiality of Alcohol and Drug Abuse Patient Records regulations: The Federal rules restrict any use of the information to criminally investigate or prosecute any alcohol or drug abuse patient.[facility] CenterIn the event this information is protected by the Federal Confidentiality of Alcohol and Drug Abuse Patient Records regulations: The Federal rules restrict any use of the information to criminally investigate or prosecute any alcohol or drug abuse patient.[facility]In the event this information is protected by the Federal Confidentiality of Alcohol and Drug Abuse Patient Records regulations: The Federal rules restrict any use of the information to criminally investigate or prosecute any alcohol or drug abuse patient.[facility]In the event this information is protected by the Federal Confidentiality of Alcohol and Drug Abuse Patient Records regulations: The Federal rules restrict any use of the information to criminally investigate or prosecute any alcohol or drug abuse patient.[facility]In the event this information is protected by the Federal Confidentiality of Alcohol and Drug Abuse Patient Records regulations: The Federal rules restrict any use of the information to criminally investigate or prosecute any alcohol or drug abuse patient.[facility]In the event this information is protected by the Federal Confidentiality of Alcohol and Drug Abuse Patient Records regulations: The Federal rules restrict any use of the information to criminally investigate or prosecute any alcohol or drug abuse patient.[facility] CenterIn the event this information is protected by the Federal Confidentiality of Alcohol and Drug Abuse Patient Records regulations: The Federal rules restrict any use of the information to criminally investigate or prosecute any alcohol or drug abuse patient.[facility] Reason for Visit (unrecogniz ed section and content) Reason Comments Follow Up 6 month Reason Comments Appointment Patient Update Reason Comments Orders Reason Comments Consult colonoscopy Specialty Diagnoses / Procedures Referred By Claire maldonado Referred To Contact General Surgery Diagnoses Screening for colon cancer Procedures CONSULT TO GENERAL SURGERY OFFICE/OUTPATIENT [facility] MDM 60-74 MINUTES Antonio Hui MD [address] [place] [address] Referral ID Status Reason Start Date Expiration Date V isits Requested Visits Authorized [id number] Closed PCP Requested Referral 08/04/2021 08/04/2022 1 1 Reason Comments Appointment Reason Comments Results Reason Comments 09/22/2021 COLON LODI Reason Onset Date Comments Refill Request 11/20/2021 Reason Onset Date Comments Refill Request 03/09/2022 Reason Comments Insurance Authorization [employer] Reason Onset Date Comments Refill Request 03/30/2022 Reason Comments Medication Problem Reason Comments Insurance Authorization [employer] Reason Comments Refill Request Reason Comments Follow Up 6 month Reason Onset Date Comments Refill Request 08/30/2022 Care Teams (unrecognized sec tion and content) Cuff Stitcher Relationship Specialty Start Date End Date Antonio Hui MD [address], [place] [id number] PCP - General Family Practice 04/29/16 Cuff Stitcher Relationship Specialty Start Date End Date Antonio Hui MD [address] [facility] [place] [address] PCP - General Family Practice 04/29/16 Cuff Stitcher Relationship Specialty Start Date End Date Antonio Hui MD [address] [facility] [address] PCP - General Family Practice 04/29/16 Cuff Stitcher Relationship Specialty Start Date End Date Antonio Hui MD [address] [facility] [address] PCP - General Family Practice 04/29/16 Cuff Stitcher Relationship Specialty Start Date End Date Antonio Hui MD [address] [facility] [address] PCP - General Family Practice 04/29/16 Cuff Stitcher Relationship Specialty Start Date End Date Antonio Hui MD [address] [facility] [address] PCP - General Family Practice 04/29/16 Cuff Stitcher Relationship Specialty Start Date End Date Antonio Hui MD [address] [facility] [place] [address] PCP - General Family Practice 04/29/16 Cuff Stitcher Relationship Specialty Start Date End Date Antonoi Hui MD [address] [facility] [address] PCP - General Family Practice 04/29/16 Cuff Stitcher Relationship Specialty Start Date End Date Antonio Hui MD [address] [facility] [address] PCP - General Family Medicine 04/29/16 Cuff Stitcher Relationship Specialty Start Date End Date Antonio Hui MD [address] [facility] [address] PCP - General Family Medicine 04/29/16 Cuff Stitcher Relationship Specialty Start Date End Date Antonio Hui MD [address] [facility] [address] PCP - General Family Medicine 04/29/16 Cuff Stitcher Relationship Specialty Start Date End Date Antonio Hui MD [address] [facility] [address] PCP - General Family Medicine 04/29/16 Cuff Stitcher Relationship Specialty Start Date End Date Antonio Hui MD [facility] [address] PCP - General Family Medicine 04/29/16 Cuff Stitcher Relationship Specialty Start Date End Date Antonio Hui MD [facility] [address] PCP - General Family Medicine 04/29/16 Cuff Stitcher Relationship Specialty Start Date End Date Antonio Hui MD [facility] [address] PCP - General Family Medicine 04/29/16 Cuff Stitcher Relationship Specialty Start Date End Date Antonio Hui MD [address] [facility] [place] [address] PCP - General Family Medicine 04/29/16 Cuff Stitcher Relationship Specialty Start Date End Date Antonio Hui MD [address] [facility] [place] [address] PCP - General Family Medicine 04/29/16 Cuff Stitcher Relationship Specialty Start Date End Date Antonio Hui MD [address] [facility] [address] PCP - General Family Medicine 04/29/16 Cuff Stitcher Relationship Specialty Start Date End Date Antonio Hui MD [address] [facility] [place], [place] [id number] PCP - [facility] 04/29/16 Cuff Stitcher Relationship Specialty Start Date End Date Antonio Hui MD [address], [place] [id number] PCP - [facility] 04/29/16 Cuff Stitcher Relationship Specialty Start Date End Date Antonio Hui MD [address] [facility] [place], [place] [id number] PCP - [facility] 04/29/16 Cuff Stitcher Relationship Specialty Start Date End Date Antonio Hui MD [address], [place] [id number] PCP - [facility] 04/29/16 INFORMATION SOURCE (unrecogn ized section and content) DATE CREATED AUTHOR AUTHOR'S ORGANIZ ATION 09/28/2021 [facility] DATE CREATED AUTHOR AUTHOR'S ORGANIZ ATION 02/19/2023 [facility] FOR RECORDS PERTAINING TO PATIENTS WHO ARE OR HAVE BEEN ENROLLED IN A CHEMICAL DEPENDENCY/SUBSTANCEABUSE PROGRAM, SOME INFORMATION MAY BE OMITTED. This clinical summary was aggregated from multiple sources. Caution should be exercised in using it in the provision of clinical care. This summary normalizes information from multiple sources, and as a consequence, information in this document may materially change the coding, format and clinical context of patient data. In addition, data may be omitted in some cases. CLINICAL DECISIONS SHOULD BE BASED ON THE PRIMARY CLINICAL RECORDS. [employer] provides no warranty or guarantee of the accuracy or completeness of information in this document.
[2023-03-28 11:34] VITALS: BP 158/99; PULSE 66; RESP 16; O2SAT 100
--- NOTE | 2023-03-28 12:58 | ED.RN ---
called u/s to inquire about results. will send read.
== END 2023-03-28 13:17 | disposition home or self-care (01) ==
PROVIDERS: Emergency Provider Emergency Medicine; PCP Family Medicine; Visit Provider Emergency Medicine
DX: D17.71 Benign lipomatous neoplasm of kidney (principal); E11.9 Type 2 diabetes mellitus without complications; K76.0 Fatty (change of) liver, not elsewhere classified; I10 Essential (primary) hypertension; E78.00 Pure hypercholesterolemia, unspecified; Z79.82 Long term (current) use of aspirin; Z79.84 Long term (current) use of oral hypoglycemic drugs; Z79.899 Other long term (current) drug therapy; Z87.891 Personal history of nicotine dependence
CPT/HCPCS: 76705; 80053; 83690; 85025; 99283; A4216

== ENCOUNTER → 2023-09-12 | Outpatient (CLI) | payer BC, SELFPAY ==
--- NOTE | 2023-09-12 13:38 | BI_ITS ---
MAMMOGRAPHY - BILATERAL SCREENING REASON FOR EXAM: Female, 53 years old. Routine annual screening examination. PERTINENT HISTORY: Non-contributory. History of prior bilateral breast reduction surgery. TECHNIQUE: Digital bilateral breast jaymie (3D mammographic acquisition) in the CC and MLO projections. 2-D mediolateral oblique (MLO) and craniocaudad (CC) views of both breasts were obtained. CAD: Full Field Digital Mammography with Computer Added Detection was performed. COMPARISON: Comparison is made with prior study July 09, 2021. FINDINGS: Breast Composition: There are scattered areas of fibroglandular density. There are no dominant masses or suspicious calcifications. Since prior study, the patient underwent bilateral breast reduction surgery with postoperative scarring. Small bilateral fat-containing axillary lymph nodes. No other significant abnormalities are identified. BI/SCRN MAMM (CAD)W/JAYMIE BILAT IMPRESSION: Status post bilateral breast reduction surgery. Yearly follow-up mammogram recommended. (A) ASSESSMENT CATEGORY: BIRADS Category 2: Benign. A letter regarding these results will be sent to the patient by the facility within 30 days. Approximately 10% of breast cancers are not detected by mammography. A normal mammogram should not delay biopsy of a clinically suspicious abnormality. [id number] Electronically Signed: Thanh Bray MD at 15:01 EDT ,
== END | disposition home or self-care (01) ==
LOC: OPBI 13:38
PROVIDERS: PCP Family Medicine; Referring Provider Nurse Practitioner Family; Visit Provider Nurse Practitioner Family
DX: Z12.31 Encounter for screening mammogram for malignant neoplasm of breast (principal)
CPT/HCPCS: 77063; 77067

== ENCOUNTER 2024-02-17 13:58 | Emergency (ER) | payer BC, SELFPAY ==
[2024-02-17 13:59] VITALS: BP 165/81; PULSE 84; RESP 16; TEMP 36.4; O2SAT 99; BMI 32.1
--- NOTE | 2024-02-17 14:15 | EKG12_ITS ---
Test Reason : Blood Pressure : */* mmHG Vent. Rate : 75 BPM Atrial Rate : 75 BPM P-R Int : 108 ms QRS Dur : 86 ms QT Int : 368 ms P-R-T Axes : 26 15 46 degrees QTcB Int : 410 ms Sinus rhythm with short WI Otherwise normal ECG Confirmed by FELICITA HARTMANN, LISA ([id number]), web content editor JOSELINE HILL ([id number]) on 02/20/2024 6:37:32 AM Referred By: Confirmed By: LISA MIMS MD
[2024-02-17 14:35] LABS: Absolute Lymphocyte Count 1.59 X10^3/uL (0.83-4.51); Absolute Neutrophil Count 8.3 X10^3/uL (2.0-7.7); Basophil# 0.03 X10^3/uL; Basophil% 0.3 % (0-1); Eosinophil# 0.11 X10^3/uL; Hematocrit 39.9 % (37-47); Hemoglobin 13.4 g/dL (12.0-15.0); Lymphocyte # 1.59 X10^3/ul (0.83-4.51); Lymphocyte % 14.7 % (19-41); Mean Corp Hgb Conc 33.6 g/dL (32-36); Mean Corpuscular Hgb 30.7 pg (27.0-32.0); Mean Corpuscular Volume 91.5 fL (81-99); Mean Platelet Vol. 9.8 fl (6.2-12.0); Monocyte# 0.79 X10^3/uL; Monocyte% 7.3 % (0-10); NRBC Flagged by Analyzer 0 % (0-5); Neutrophil # 8.27 X10^3/uL (2.7-7.7); Neutrophil % 76.2 % (47-70); Platelet Count 418 K/mm3 (150-450); RBC Distribution Width CV 13.2 % (11.6-14.6); RBC Distribution Width SD 44.2 fl (35.1-43.9); Red Blood Count 4.36 M/mm3 (4.2-5.4); White Blood Count 10.8 K/mm3 (4.4-11.0)
--- NOTE | 2024-02-17 14:35 | RAD_ITS ---
EXAM: XR CHEST, 2 VIEWS CLINICAL INDICATION: chest pain TECHNIQUE: Frontal and lateral views of the chest. COMPARISON: XR Chest dated 05/11/2021 FINDINGS: LUNGS AND PLEURAL SPACES: Normal. No consolidation or edema. No pneumothorax. No effusion. HEART: Normal heart size. MEDIASTINUM: No mediastinal or hilar mass. BONES/JOINTS: No acute abnormality. RAD/Chest PA and Lateral IMPRESSION: No acute cardiopulmonary abnormality. No interval change. Electronically Signed: Jordy Hopkins MD at 14:55 EST ,
[2024-02-17] MEDS: 0.9% Normal Saline (1000mL) 1,000 ML 999 ML IV (14:52)
[2024-02-17 15:03] LABS: Anion Gap 6 (5-15); BUN 29 mg/dL (7-18); BUN/Creat Ratio 43.1 RATIO (10-20); Calcium,Total 9.2 mg/dL (8.5-10.1); Chloride 107 mmol/L (98-107); Creatinine, Serum 0.67 mg/dL (0.55-1.02); EST Glomerular Filtration Rate 96 mL/min (>60); Est Glom Filt Rate - Afr Amer 117 mL/min (>60); Estimated Creatinine Clearance 111.06 ml/min; Glucose 114 mg/dL (74-106); Potassium 3.3 mmol/L (3.5-5.1); Sodium Level 139 mmol/L (136-145); Thyroid Stim Hormone (TSH) 0.914 uIU/mL (0.358-3.740); Troponin-I HS (w/2H Reflex) 3 pg/mL (3.0-54.0)
[2024-02-17] MEDS: Ondansetron 4 MG/2 ML Vial IV (15:20)
[2024-02-17] MEDS: Acetaminophen 500 MG Tablet 1000 MG PO (15:20)
--- NOTE | 2024-02-17 15:28 | EX.ED.DYSGE1 ---
HPI History of Present Illness Chief Complaint: General Illness Narrative Narrative: Patient is a 53-year-old female with a past medical history of diabetes, hypercholesteremia, GERD, hypertension, hyperlipidemia who presented to the emergency department with a chief complaint of hot flashes, intermittent heart racing, nausea. She states that on February 07 she had a steroid injection in her hip and notes that approximately 2 days after this is when all her symptoms started. She states that she called her doctor today and they advised her to come to the emergency department further evaluation management. Patient states that she is constantly hot and sweating. She noted that other family members have history of thyroid issues and was also concerned about this. Patient denies any history of blood clots denies any travel history. [facility] Medical History JENNIFFER (stress urinary incontinence, female) Wears glasses Alcohol use Diabetes Bladder disease High cholesterol Back pain Dietary restriction Gastric reflux Former smoker History of echocardiogram History of stress test Endometriosis Hyperlipidemia Hypertension Home Medications ?Medication ?Instructions ?Recorded ?Last Taken ?Type aspirin 81 mg chewable tablet 81 mg PO DAILY@0800 06/05/13 12/15/22 History cholecalciferol (vitamin D3) 25 1,000 unit PO DAILY 06/05/13 Unknown History mcg (1,000 unit) capsule calcium carbonate 300 mg PO BID 02/20/16 Unknown History glucosamine sulfate 250 1 ea PO BID 02/20/16 Unknown History mg-chondroitin sulfate A 200 mg capsule pantoprazole 40 mg tablet,delayed 40 mg PO DAILY 02/20/16 12/23/22 History release cetirizine 10 mg capsule 10 mg PO DAILY PRN Allergies 10/22/18 Unknown History meloxicam 15 mg tablet 15 mg PO DAILY 12/21/22 12/15/22 History venlafaxine 75 mg capsule,extended 75 mg PO QHS 12/21/22 Unknown History release 24 hr epinephrine 0.3 mg/0.3 mL 0.3 mg IM Q4H 03/28/23 Unknown History injection, auto-injector hydrochlorothiazide 12.5 mg tablet 12.5 mg PO DAILY 03/28/23 Unknown History losartan 50 mg tablet 50 mg PO BID 03/28/23 Unknown History metformin 500 mg tablet 500 mg PO BID 03/28/23 Unknown History simvastatin 10 mg tablet 10 mg PO DAILY 03/28/23 Unknown History tirzepatide 12.5 mg/0.5 mL 15 mg subcut QWEEK 09/12/23 Unknown History subcutaneous pen injector (Mounjaro) Allergy/AdvReac Type Severity Reaction Status Date / Time codeine Allergy Anaphylaxis Verified 02/17/24 13:59 Iodinated Contrast Media (iv Allergy Anaphylaxis Verified 02/17/24 13:59 contrast dye) shellfish derived Allergy Nausea/Vom/ Verified 02/17/24 13:59 Diarrhea Sulfa (Sulfonamide Allergy Anaphylaxis Verified 02/17/24 13:59 Antibiotics) pineapple (Pineapple) AdvReac Nausea/Vom/ Verified 02/17/24 13:59 Diarrhea squash AdvReac Nausea/Vom/ Verified 02/17/24 13:59 Diarrhea walnut AdvReac Nausea/Vom/ Verified 02/17/24 13:59 Diarrhea Family History Father Myocardial infarction Hypertension Mother Heart disease Hypertension Grandmother Heart disease Hypertension Surgical History S/P panniculectomy Hx of breast reduction, elective Hx of arthroscopy of right knee Labral tear of left hip joint History of lateral meniscus repair of left knee H/O laparoscopy H/O: hysterectomy Plantar fascia syndrome Social History Smoking Status: Former smoker alcohol intake: current details: social substance use type: does not use caffeine: Yes frequency: 3-4 times per week seatbelt use: always do you feel safe at home: Yes additional social history: seperated ROS ROS ED ROS Narrative Constitutional: Complains of hot flashes denies any dizziness headaches Eyes: Denies changes vision double vision blurry vision Cardiovascular: Denies chest pain or palpitations Respiratory: Denies coughing wheezing shortness of breath Abdomen: Complains of nausea denies abdominal pain vomiting diarrhea : Denies any urinary symptoms Neurological: Denies any numbness, weakness, tingling Musculoskeletal: Denies back pain Skin: Denies any rashes or lesions EXAM Physical Exam Narrative Exam Narrative: General: Patient was lying in bed rest comfortably did not appear to be in acute distress Head: Atraumatic, normocephalic Eyes: PERRL body, EOMI bilateral, no conjunctival injection noted Neck: Soft, supple, trachea midline Cardiovascular: Regular rate and rhythm no murmurs gallops rubs noted Respiratory: Clear to auscultation bilaterally no rales rhonchi or wheezes noted Abdomen: Soft, nondistended, nontender to palpation, bowel sounds present times 4 Extremities: +5/5 strength noted in the bilateral upper and lower extremities, radial pulses +2/4 in the bilateral upper extremities Neurological: Patient following commands knew that she was at [facility] year is 2023. NIH of 0 GCS 15 Skin: Warm, dry, intact, no rashes or lesions noted Const Vital Signs: 02/17/24 13:59 02/17/24 13:59 Temperature 97.5 F L Temperature Source Oral Pulse Rate 84 Respiratory Rate 16 Respiratory Pattern Normal Blood Pressure 165/81 H Blood Pressure Mean 109 Pulse Ox 99 Oxygen Delivery Method Room Air MDM MDM MDM Narrative Medical decision making narrative: Patient is a 53-year-old female who presented to the emergency department chief complaint of palpitations, hot flashes and generalized not feeling well after steroid injection. On the differential diagnose includes but not limited to hyperthyroidism, hypothyroidism, ACS, hyperglycemia. Once workup is obtained reviewed she will be reevaluated. Patient be given IV fluids for hydration and Zofran for her nausea. Patient CBC was reviewed and was largely unremarkable no evidence leukocytosis white blood count normal at 10.8, hemoglobin 13.4, platelet count was normal at 418. Patient sodium normal at 139, potassium was 3.3, creatinine normal at 0.67. Patient's troponin was normal at 3. Patient's EKG was reviewed and independently interpreted by myself which showed sinus rhythm with a rate of 75 bpm. Patient's TSH normal at 0.91. Patient's chest x-ray reviewed by myself and by radiology showed no acute cardiopulmonary processes. At this point time a delta troponin is pending. Patient's case will be signed out to oncoming provider to follow-up on this. If this is normal she will be discharged home in stable condition with instructions to follow-up with her primary care physician outpatient setting. She was encouraged return with worsening symptoms or any concerns. See oncoming providers note for ultimate disposition details. Lab Data Labs: Laboratory Results - last 24 hr 02/17/24 14:25 WBC 10.8 RBC 4.36 Hgb 13.4 Hct 39.9 MCV 91.5 MCH 30.7 MCHC 33.6 RDW Std Deviation 44.2 H RDW Coeff of Delia 13.2 Plt Count 418 MPV 9.8 Immature Gran % (Auto) 0.500 Neut % (Auto) 76.2 H Lymph % (Auto) 14.7 L Grimes % (Auto) 7.3 Eos % (Auto) 1.0 Baso % (Auto) 0.3 Absolute Neuts (auto) 8.3 H Absolute Lymphs (auto) 1.59 Nucleated RBC % 0 Sodium 139 Potassium 3.3 L Chloride 107 Carbon Dioxide 27.0 Anion Gap 6 BUN 29 H Creatinine 0.67 Estim Creat Clear Calc 111.06 Est GFR (MDRD) Af Amer 117 Est GFR (MDRD) Non-Af 96 BUN/Creatinine Ratio 43.1 H Glucose 114 H Calcium 9.2 Troponin I High Sens 3 TSH 0.914 Radiography Diagnostic Testing: Clinical Impression(s) from Imaging Studies Chest X-Ray 02/17/24 14:35 IMPRESSION: No acute cardiopulmonary abnormality. No interval change. Electronically Signed: Jordy Hopkins MD at 14:55 EST Reading Location ID and State: [address] [place] [address] Tel , Service support , Discharge Plan Triage Chief Complaint: General Illness ED Provider: Shade Richards Dx/Rx/DC Orders Clinical Impression: Hot flashes, Palpitation Prescriptions: No Action Mounjaro 12.5 mg/0.5 mL pen injector 15 mg subcut QWEEK aspirin 81 MG tablet,chewable 81 mg PO DAILY@0800 Patient Comments: Heart health cholecalciferol (vitamin D3) 1,000 UNIT capsule 1,000 unit PO DAILY Patient Comments: Supplement calcium carbonate 600 MG tablet 300 mg PO BID Patient Comments: supplement glucosamine sulf-chondroitinSA 1 EACH capsule 1 ea PO BID Patient Comments: supplement pantoprazole 40 MG tablet 40 mg PO DAILY Patient Comments: acid reflux med cetirizine 10 MG capsule 10 mg PO DAILY PRN (Reason: Allergies) meloxicam 15 mg tablet 15 mg PO DAILY venlafaxine 75 mg capsule,extended release 24hr 75 mg PO QHS epinephrine 0.3 mg/0.3 mL auto-injector 0.3 mg IM Q4H hydrochlorothiazide 12.5 mg tablet 12.5 mg PO DAILY losartan 50 mg tablet 50 mg PO BID metformin 500 mg tablet 500 mg PO BID simvastatin 10 mg tablet 10 mg PO DAILY Primary Care Provider: Buddy Hui Referrals: Buddy Hui MD [Primary Care Provider] - Activity Restrictions/Additional Instructions: Keep a close eye on your blood pressure. Keep a blood pressure log by randomly taking her blood pressure 2-3 times a day and write it down and take it to your primary care physician for their review ensure that you are writing the time down with this as well. Return with worsening symptoms or any other concerns. Print Language: Palestinian
[2024-02-17 16:00] VITALS: BP 140/93; PULSE 79; RESP 19; O2SAT 99
[2024-02-17 16:31] LABS: Reflex Troponin-HS? (from REC) Y
[2024-02-17 17:01] LABS: Troponin-I HS 3 pg/mL (3.0-54.0)
[2024-02-17 17:17] VITALS: BP 150/94; PULSE 77; RESP 18; O2SAT 99
== END 2024-02-17 17:18 | disposition home or self-care (01) ==
LOC: ED 14:23
PROVIDERS: Emergency Provider Emergency Medicine; PCP Family Medicine; Visit Provider Emergency Medicine
DX: N95.1 Menopausal and female climacteric states (principal); E11.9 Type 2 diabetes mellitus without complications; R00.2 Palpitations; Z87.891 Personal history of nicotine dependence
CPT/HCPCS: 71046; 80048; 84443; 84484; 85025; 93005; 96361; 96374; 96376; 99284; J2405

== ENCOUNTER 2024-08-06 08:23 | Emergency (ER) | payer BC, SELFPAY ==
[2024-08-06 08:24] VITALS: BP 144/102; PULSE 95; RESP 16; TEMP 36.6; O2SAT 97; BMI 32.4
--- NOTE | 2024-08-06 08:44 | ED.VIS.BACK ---
HPI History of Present Illness Chief Complaint: Back Narrative Narrative: Chief complaint and HPI: Lumbar back pain. 54-year-old female with past medical history of DM2, HTN, HLD, DDD presents for evaluation of lumbar back pain. Onset yesterday after closing a window. Has not taken any Tylenol or Motrin. States she had a leftover muscle relaxer from months ago that provided little relief. Denies any direct trauma to the back. Denies numbness, weakness, urinary retention, stool or urinary incontinence, saddle anesthesia, recent invasive manipulation of the spine, intravenous drug use, or fever. Review of systems: See HPI Medications: As listed on the chart Allergies: As listed on the chart PFSH: Per chart Vital signs: As listed on the chart. Reviewed. Physical exam: Gen: A&O x3, NAD Head: Normocephalic, atraumatic Eyes: No sclera icterus, conjunctiva clear ENT: Moist mucous membranes Neck: Trachea midline, No JVD CV: RRR, no murmurs, no peripheral edema Resp: Lungs CTA BL, no w/r/c GI: Abd soft, non-distended, non-tender, no r/r/g Musc: Limited range of motion secondary to back pain, no deformity, no midline spinal tenderness, no bony step-off, strength +5/5 of bilateral lower extremities, no signs of trauma or infection, patient is mildly tender to palpation of the right lumbar paraspinal musculature of the lower lumbar spine and in the right piriformis region-recreates her pain Skin: Warm, dry Neuro: Alert, oriented, grossly intact, sensation intact Psych: Cooperative, appropriate mood and affect [facility] Medical History JENNIFFER (stress urinary incontinence, female) Wears glasses Alcohol use Diabetes Bladder disease High cholesterol Back pain Dietary restriction Gastric reflux Former smoker History of echocardiogram History of stress test Endometriosis Hyperlipidemia Hypertension Home Medications ?Medication ?Instructions ?Recorded ?Last Taken ?Type aspirin 81 mg chewable tablet 81 mg PO DAILY@0800 06/05/13 12/15/22 History cholecalciferol (vitamin D3) 25 1,000 unit PO DAILY 06/05/13 Unknown History mcg (1,000 unit) capsule calcium carbonate 300 mg PO BID 02/20/16 Unknown History glucosamine sulfate 250 1 ea PO BID 02/20/16 Unknown History mg-chondroitin sulfate A 200 mg capsule pantoprazole 40 mg tablet,delayed 40 mg PO DAILY 02/20/16 12/23/22 History release cetirizine 10 mg capsule 10 mg PO DAILY PRN Allergies 10/22/18 Unknown History meloxicam 15 mg tablet 15 mg PO DAILY 12/21/22 12/15/22 History epinephrine 0.3 mg/0.3 mL 0.3 mg IM Q4H 03/28/23 Unknown History injection, auto-injector hydrochlorothiazide 12.5 mg tablet 12.5 mg PO DAILY 03/28/23 Unknown History losartan 50 mg tablet 50 mg PO BID 03/28/23 Unknown History metformin 500 mg tablet 500 mg PO BID 03/28/23 Unknown History simvastatin 10 mg tablet 10 mg PO DAILY 03/28/23 Unknown History tirzepatide 12.5 mg/0.5 mL 15 mg subcut QWEEK 09/12/23 Unknown History subcutaneous pen injector (Lucasundinesh) venlafaxine 75 mg capsule,extended 75 mg PO QHS #90 caps 02/27/24 Unknown Rx release 24 hr cyclobenzaprine 5 mg tablet 5 mg PO TID PRN muscle spasm 3 08/06/24 Unknown Rx days #9 tabs Allergy/AdvReac Type Severity Reaction Status Date / Time codeine Allergy Anaphylaxis Verified 08/06/24 08:24 Iodinated Contrast Media (iv Allergy Anaphylaxis Verified 08/06/24 08:24 contrast dye) shellfish derived Allergy Nausea/Vom/ Verified 08/06/24 08:24 Diarrhea Sulfa (Sulfonamide Allergy Anaphylaxis Verified 08/06/24 08:24 Antibiotics) pineapple (Pineapple) AdvReac Nausea/Vom/ Verified 08/06/24 08:24 Diarrhea squash AdvReac Nausea/Vom/ Verified 08/06/24 08:24 Diarrhea walnut AdvReac Nausea/Vom/ Verified 08/06/24 08:24 Diarrhea Family History Father Myocardial infarction Hypertension Mother Heart disease Hypertension Grandmother Heart disease Hypertension Surgical History S/P panniculectomy Hx of breast reduction, elective Hx of arthroscopy of right knee Labral tear of left hip joint History of lateral meniscus repair of left knee H/O laparoscopy H/O: hysterectomy Plantar fascia syndrome Social History Smoking Status: Former smoker alcohol intake: current details: social substance use type: does not use caffeine: Yes frequency: 3-4 times per week seatbelt use: always do you feel safe at home: Yes additional social history: seperated EXAM Physical Exam Const Vital Signs: 08/06/24 08:24 Temperature 97.8 F Temperature Source Oral Pulse Rate 95 Respiratory Rate 16 Blood Pressure 144/102 H Blood Pressure Mean 116 Pulse Ox 97 Oxygen Delivery Method Room Air MDM MDM MDM Narrative Medical decision making narrative: 54-year-old female with past medical history of DM2, HTN, HLD, DDD presents for evaluation of lumbar back pain. Onset yesterday after closing a window. Has not taken any Tylenol or Motrin. Did have an old muscle relaxer at home which she took with little relief. States it was not Flexeril. There has been no direct trauma. There is nothing to suggest any infectious etiology. The patient is not an IV drug user. There is no neurologic findings to suggest an acute cauda equina syndrome, infectious etiology, or any acute radiculopathy. At this point I do not feel any emergent imaging such as x-rays, CT, MRI are warranted. Patient symptoms will be treated. She did not drive to the emergency department. IM Toradol and Valium will be given. Patient stable to discharge home. Follow-up with PCP. Return precautions explained. Will give her a short prescription of Flexeril. Recommended Tylenol. Patient did not take her meloxicam today therefore okay to take Motrin after 8 hours with the Toradol. Was educated that if she takes meloxicam do not take ibuprofen/Motrin. Impression: 1. Lumbar back strain Discharge Plan Triage Chief Complaint: Back ED Provider: Raul Abreu Dx/Rx/DC Orders Clinical Impression: Lumbar strain Instructions: ED Back Sprain/Strain Prescriptions: New cyclobenzaprine 5 mg tablet 5 mg PO TID PRN (Reason: muscle spasm) 3 Days Qty: 9 0RF No Action Mounjaro 12.5 mg/0.5 mL pen injector 15 mg subcut QWEEK aspirin 81 MG tablet,chewable 81 mg PO DAILY@0800 Patient Comments: [facility] cholecalciferol (vitamin D3) 1,000 UNIT capsule 1,000 unit PO DAILY Patient Comments: Supplement calcium carbonate 600 MG tablet 300 mg PO BID Patient Comments: supplement glucosamine sulf-chondroitinSA 1 EACH capsule 1 ea PO BID Patient Comments: supplement pantoprazole 40 MG tablet 40 mg PO DAILY Patient Comments: acid reflux med cetirizine 10 MG capsule 10 mg PO DAILY PRN (Reason: Allergies) meloxicam 15 mg tablet 15 mg PO DAILY epinephrine 0.3 mg/0.3 mL auto-injector 0.3 mg IM Q4H hydrochlorothiazide 12.5 mg tablet 12.5 mg PO DAILY losartan 50 mg tablet 50 mg PO BID metformin 500 mg tablet 500 mg PO BID simvastatin 10 mg tablet 10 mg PO DAILY venlafaxine 75 mg capsule,extended release 24hr 75 mg PO QHS Qty: 90 2RF Primary Care Provider: Buddy Hui Referrals: Buddy Hui MD [Primary Care Provider] - Activity Restrictions/Additional Instructions: Tylenol and Motrin as needed for pain. You received Toradol here in the emergency department, no Motrin for 8 hours. You received most relaxer in the emergency department, no muscle relaxer for 8 hours. Muscle relaxers as needed. Do not drive or operate heavy machinery while taking muscle relaxers. They can make you tired, confused, lightheaded, and increased falls. Recommended rest and gentle stretching. Follow-up with PCP. Print Language: [place] Disposition Disposition: Home, Self Care
[2024-08-06] MEDS: Ketorolac 15 MG/ML Vial IM (08:52)
[2024-08-06] MEDS: diazePAM 5 MG Tablet PO (08:52)
[2024-08-06 09:38] VITALS: BP 161/97; PULSE 79; RESP 16; TEMP 36.6; O2SAT 99
== END 2024-08-06 09:40 | disposition home or self-care (01) ==
LOC: ED 09:01
PROVIDERS: Emergency Provider Surgery; PCP Family Medicine; Visit Provider Surgery
DX: S39.012A Strain of muscle, fascia and tendon of lower back, initial encounter (principal); E11.9 Type 2 diabetes mellitus without complications; Z87.891 Personal history of nicotine dependence; X58.XXXA Exposure to other specified factors, initial encounter
CPT/HCPCS: 96372; 99282

== ENCOUNTER → 2024-09-18 | Outpatient (CLI) | payer BC, SELFPAY ==
--- NOTE | 2024-09-18 15:15 | BI_ITS ---
EXAM: SCRN MAMM (CAD)W/JAYMIE BILAT DATE: 09/18/2024 CLINICAL HISTORY: F, Age 54 y/o , SCREENING FOR BREAST CANCER TECHNIQUE: SCRN MAMM (CAD)W/JAYMIE BILAT COMPARISON: Prior exam(s) were compared FINDINGS: TISSUE DENSITY: The breasts are heterogeneously dense, which may obscure small masses. Bilateral Breast Mammographic Findings: No suspicious masses, calcifications or other abnormalities are identified. Bilateral post reduction mammoplasty BI/SCRN MAMM (CAD)W/JAYMIE BILAT IMPRESSION: No mammographic evidence of malignancy in either breast OVERALL FINAL ASSESSMENT BI-RADS 2: BENIGN RECOMMENDATION: Routine annual follow-up in 1 Year A letter with findings and recommendations will be mailed to the patient. Reading Location: [id number]
== END | disposition home or self-care (01) ==
LOC: OPBI 14:48
PROVIDERS: PCP Family Medicine; Referring Provider Nurse Practitioner Women's Health; Visit Provider Nurse Practitioner Women's Health
DX: Z12.31 Encounter for screening mammogram for malignant neoplasm of breast (principal)
CPT/HCPCS: 77063; 77067

== ENCOUNTER 2024-10-28 09:29 | Observation (INO) | payer BC, SELFPAY ==
[2024-10-28] VITALS (7 sets, daily range): BP systolic 158–188; BP diastolic 78–109; PULSE 72–91; RESP 15–19; TEMP 36.2–37.8; O2SAT 98–100; BMI 33.8; BMI 32.1
--- NOTE | 2024-10-28 09:38 | EDS_ITS ---
HPI History of Present Illness Chief Complaint: Abd Pain [facility] Medical History JENNIFFER (stress urinary incontinence, female) Wears glasses Alcohol use Diabetes Bladder disease High cholesterol Back pain Dietary restriction Gastric reflux Former smoker History of echocardiogram History of stress test Endometriosis Hyperlipidemia Hypertension Home Medications ?Medication ?Instructions ?Recorded ?Last Taken ?Type aspirin 81 mg chewable tablet 81 mg PO DAILY@0800 10/1112/15/22 History cholecalciferol (vitamin D3) 25 1,000 unit PO DAILY Unknown History mcg (1,000 unit) capsule calcium carbonate 300 mg PO BID 02/20/16 Unkno wn History glucosamine sulfate 250 1 ea PO BID 02/20/16 Unknown History mg-chondroitin sulfate A 200 mg capsule pantoprazole 40 mg tablet,delayed 40 mg PO DAILY 02/1912/23/22 History release cetirizine 10 mg capsule 10 mg PO DAILY PRN Allergies 10/22/18 Unknown History meloxicam 15 mg tablet 15 mg PO DAILY 12/21/2211/28 History epinephrine 0.3 mg/0.3 mL 0.3 mg IM Q4H 03/28/23 Unkno wn History injection, auto-injector hydrochlorothiazide 12.5 mg tablet 12.5 mg PO DAILY Unknown History losartan 50 mg tablet 50 mg PO BID 03/28/23 Unknow n History metformin 500 mg tablet 500 mg PO BID 03/28/23 Unkno wn History simvastatin 10 mg tablet 10 mg PO DAILY 03/28/23 Unkn own History tirzepatide 12.5 mg/0.5 mL 15 mg subcut QWEEK 09/12/23 Unknown History subcutaneous pen injector (Guero) venlafaxine 75 mg capsule,extended 75 mg PO QHS #90 ca ps 09/18/24 Unknown Rx release 24 hr Allergy/AdvReac Type Severity Reaction Status Date / Time codeine Allergy Anaphylaxis Verified 10/28/24 09:31 Iodinated Contrast Media (iv Allergy Anaphylaxis Verified 10/28/24 09:31 contrast dye)
--- NOTE | 2024-10-28 09:38 | EX.ED.DYSGE1 ---
HPI History of Present Illness Chief Complaint: Abd Pain [facility] Medical History JENNIFFER (stress urinary incontinence, female) Wears glasses Alcohol use Diabetes Bladder disease High cholesterol Back pain Dietary restriction Gastric reflux Former smoker History of echocardiogram History of stress test Endometriosis Hyperlipidemia Hypertension Home Medications ?Medication ?Instructions ?Recorded ?Last Taken ?Type aspirin 81 mg chewable tablet 81 mg PO DAILY@0800 06/05/13 12/15/22 History cholecalciferol (vitamin D3) 25 1,000 unit PO DAILY 06/05/13 Unknown History mcg (1,000 unit) capsule calcium carbonate 300 mg PO BID 02/20/16 Unknown History glucosamine sulfate 250 1 ea PO BID 02/20/16 Unknown History mg-chondroitin sulfate A 200 mg capsule pantoprazole 40 mg tablet,delayed 40 mg PO DAILY 02/20/16 12/23/22 History release cetirizine 10 mg capsule 10 mg PO DAILY PRN Allergies 10/22/18 Unknown History meloxicam 15 mg tablet 15 mg PO DAILY 12/21/22 12/15/22 History epinephrine 0.3 mg/0.3 mL 0.3 mg IM Q4H 03/28/23 Unknown History injection, auto-injector hydrochlorothiazide 12.5 mg tablet 12.5 mg PO DAILY 03/28/23 Unknown History losartan 50 mg tablet 50 mg PO BID 03/28/23 Unknown History metformin 500 mg tablet 500 mg PO BID 03/28/23 Unknown History simvastatin 10 mg tablet 10 mg PO DAILY 03/28/23 Unknown History tirzepatide 12.5 mg/0.5 mL 15 mg subcut QWEEK 09/12/23 Unknown History subcutaneous pen injector (Guero) venlafaxine 75 mg capsule,extended 75 mg PO QHS #90 caps 09/18/24 Unknown Rx release 24 hr Allergy/AdvReac Type Severity Reaction Status Date / Time codeine Allergy Anaphylaxis Verified 10/28/24 09:31 Iodinated Contrast Media (iv Allergy Anaphylaxis Verified 10/28/24 09:31 contrast dye) shellfish derived Allergy Nausea/Vom/ Verified 10/28/24 09:31 Diarrhea Sulfa (Sulfonamide Allergy Anaphylaxis Verified 10/28/24 09:31 Antibiotics) pineapple (Pineapple) AdvReac Nausea/Vom/ Verified 10/28/24 09:31 Diarrhea squash AdvReac Nausea/Vom/ Verified 10/28/24 09:31 Diarrhea walnut AdvReac Nausea/Vom/ Verified 10/28/24 09:31 Diarrhea Family History Father Myocardial infarction Hypertension Mother Heart disease Hypertension Grandmother Heart disease Hypertension Surgical History S/P panniculectomy Hx of breast reduction, elective Hx of arthroscopy of right knee Labral tear of left hip joint History of lateral meniscus repair of left knee H/O laparoscopy H/O: hysterectomy Plantar fascia syndrome Social History Smoking Status: Former smoker alcohol intake: current details: social substance use type: does not use caffeine: Yes frequency: 3-4 times per week seatbelt use: always do you feel safe at home: Yes additional social history: seperated EXAM Physical Exam Const Vital Signs: 10/28/24 09:29 10/28/24 11:29 10/28/24 13:00 Temperature 97.2 F L Temperature Source Temporal Pulse Rate 84 87 91 Respiratory Rate 16 15 15 Blood Pressure 174/109 H 174/80 H 188/90 H Blood Pressure Mean 130 111 122 Pulse Ox 99 98 100 Oxygen Delivery Method Room Air MDM MDM MDM Narrative Medical decision making narrative: HISTORY OF PRESENT ILLNESS: Chief complaint: Abdominal pain 54-year-old female history of type 2 diabetes, hypertension, endometriosis, GERD, hyperlipidemia presents abdominal pain nausea vomiting. She locates the pain behind her umbilicus. She states this began at approximately 3 AM. Notes mid abdominal pain nausea and vomiting. Denies diarrhea initially. Denies recent sick contacts. Denies history abdominal surgery. Last bowel was yesterday. No urinary complaints. REVIEW OF SYSTEMS: Pertinent positives: Abdominal pain, nausea vomiting Pertinent negatives: PHYSICAL EXAM: Nursing triage notes reviewed, Vital signs reviewed Constitutional: please see mdm HENT: MMM Eyes: Pupils equal round and reactive to light, Extraocular muscles intact Neck: No stridor, no JVD, full neck ROM Lungs: Clear to auscultation, No wheezing or rales. No increased work of breathing, no conversational dyspnea, no accessory muscle use, no nasal flaring. No respiratory distress noted Heart: Regular rate and rhythm, No murmurs, No rubs and No gallops, 2+ distal pulses (radial, femoral, posterior tibial) in all extremities Abdomen: Soft, [] rigidity, rebound or guarding, no obvious peritoneal signs, no palpable pulsatile abdominal masses, no auscultated abdominal bruit : No CVAT Extremities: No edema Neuro: No new focal neurological deficits, cranial nerves II through XII intact, 5/5 strength in all present extremities. Intact sensation to light touch in all present extremities, 2+ reflexes bilateral patella tendons. Skin: No rash or lesions noted MEDICAL DECISION MAKING: Chief Complaint: please see HPI External records reviewed: Reviewed prior imaging of the belly. Reviewed right upper quadrant ultrasound from 2023 which shows no gallstones Factors affecting care: As per HPI Social determinants of health: none History obtained from others: none Consults: General Surgery (Dr. Morales) Internal Medicine (Dr. Brown), [facility] Narrative: The patient was initially hemodynamically stable, afebrile and nontoxic-appearing. Exam diffuse abdominal TTP. Slight distention but no peritoneal signs I considered the following differential diagnosis: AAA, small bowel obstruction, abdominal perforation, appendicitis, pancreatitis, hepatobiliary pathology (acute cholecystitis), mesenteric ischemia, pathology (ie nephrolithiasis, pyelonephritis). I obtained CT scan and lab to further determine if the patient was suffering from a life-threatening etiology. Initially gave IV morphine, Zofran and fluids ALL IMAGES (IF OBTAINED) HAVE BEEN PERSONALLY REVIEWED AND INTERPRETED BY MYSELF. CBC showed marked leukocytosis suggestive of systemic inflammation, no anemia or thrombocytopenia noted BMP without significant electrode abnormalities, noted evidence of endorgan hypoperfusion elevated anion gap, no evidence of metabolic acidosis Initial lactate elevated consistent with endorgan hypoperfusion Lipase is wnl indicating no pancreatic inflammation. Urinalysis shows no evidence of urinary inflammation suggestive of UTI EKG with normal sinus rhythm rate 83, normal axis, intervals, no STEMI I opted to fluid sent to the patient with 2 L normal saline and repeat lactate. This continued to uptrend. CT scan showed transverse colitis which is consistent with the patient's physical exam of mid abdominal TTP and slight distention. It noted appendicolith. But no CT evidence of acute appendicitis. This was discussed with general surgery on-call Dr. Anderson who agree there is no sign of acute appendicitis she recommended against acute surgical intervention. Given the patient's initial presentation, elevated white count, elevated lactate I opted to draw blood cultures prior to giving IV antibiotics and admit for further observation and evaluation. Discussed with Dr. Brown who agreed to meet the patient to [facility]. The patient and/or family, caregivers express understanding. The patient and/or family, caregivers agrees with the plan. Shared decision making: I will have a discussion with the patient and or visitors regarding risk/benefits of further testing or admission. They will be made aware of of the risk/benefits inherent in this decision they will be given the opportunity to voice understanding. Total critical care time today provided was at least 0 minutes. This excludes separately billable procedures. Critical care time (if documented) is secondary to the patient having high probability of clinically significant/life threatening deterioration in the patient's condition which required my urgent intervention. Impression: 1. Acute abdominal pain 2. Nausea and vomiting 3. Colitis 4. Elevated lactate Dispo: Admit This note was generated with [employer] dictation software. It may contain incorrect words, spelling, and punctuation that were not noted in review of the chart prior to signing. Lab Data Labs: Laboratory Results - last 24 hr 10/28/24 10/28/24 10/28/24 09:57 10:13 11:09 WBC 20.5 H RBC 4.49 Hgb 14.2 Hct 40.3 MCV 89.8 MCH 31.6 MCHC 35.2 RDW Std Deviation 40.9 RDW Coeff of Delia 12.5 Plt Count 315 MPV 10.2 Immature Gran % (Auto) 0.900 Neut % (Auto) 85.1 H Lymph % (Auto) 6.1 L [place] % (Auto) 7.7 Eos % (Auto) 0.0 Baso % (Auto) 0.2 Absolute Neuts (auto) 17.4 H Absolute Lymphs (auto) 1.24 Nucleated RBC % 0 Platelet Estimate ADEQUATE Sodium 142 Potassium 3.8 Chloride 103 Carbon Dioxide 22.5 Anion Gap 16 H BUN 20 H Creatinine 0.62 L Estim Creat Clear Calc 121.82 Est GFR (MDRD) Non-Af 104 BUN/Creatinine Ratio 32.5 H Glucose 128 H Lactic Acid 2.5 H* Calcium 9.6 Total Bilirubin 0.46 AST 18 ALT 13 Alkaline Phosphatase 142 H Total Protein 7.3 Albumin 4.5 Globulin 2.8 Albumin/Globulin Ratio 1.6 Lipase 45 Urine Color Yellow Urine Clarity Clear Urine pH 5.0 Ur Specific [place] 1.020 Urine Protein 15 H Urine Glucose (UA) Normal Urine Ketones 5 H Urine Occult Blood 10 H Urine Nitrite Negative Urine Bilirubin 1 H Urine Urobilinogen 1 H Ur Leukocyte Esterase 500 H Urine RBC 0 SEEN Urine WBC 0-5 SEEN Ur Squamous Epith Cells 0-5 SEEN Urine Bacteria 0 SEEN Urine Mucus 0 SEEN 10/28/24 13:31 WBC RBC Hgb Hct MCV MCH MCHC RDW Std Deviation RDW Coeff of Delia Plt Count MPV Immature Gran % (Auto) Neut % (Auto) Lymph % (Auto) [place] % (Auto) Eos % (Auto) Baso % (Auto) Absolute Neuts (auto) Absolute Lymphs (auto) Nucleated RBC % Platelet Estimate Sodium Potassium Chloride Carbon Dioxide Anion Gap BUN Creatinine Estim Creat Clear Calc Est GFR (MDRD) Non-Af BUN/Creatinine Ratio Glucose Lactic Acid 2.7 H* Calcium Total Bilirubin AST ALT Alkaline Phosphatase Total Protein Albumin Globulin Albumin/Globulin Ratio Lipase Urine Color Urine Clarity Urine pH Ur Specific [place] Urine Protein Urine Glucose (UA) Urine Ketones Urine Occult Blood Urine Nitrite Urine Bilirubin Urine Urobilinogen Ur Leukocyte Esterase Urine RBC Urine WBC Ur Squamous Epith Cells Urine Bacteria Urine Mucus Radiography Diagnostic Testing: Clinical Impression(s) from Imaging Studies Abdomen/Pelvis CT 10/28/24 10:31 IMPRESSION: 1. Probable appendicolith, as described above. There are no CT findings of acute appendicitis. 2. Subtle inflammatory changes in the distal transverse colon, suggestive of mild colitis. 3. Postsurgical changes at bilateral inframammary folds, anterior abdominal wall. Reading Location: [id number] Discharge Plan Triage Chief Complaint: Abd Pain ED Provider: Bruce Sue Dx/Rx/DC Orders Prescriptions: No Action Mounjaro 12.5 mg/0.5 mL pen injector 15 mg subcut QWEEK venlafaxine 75 mg capsule,extended release 24hr 75 mg PO QHS Qty: 90 4RF aspirin 81 MG tablet,chewable 81 mg PO DAILY@0800 Patient Comments: [facility] [place] [employer] cholecalciferol (vitamin D3) 1,000 UNIT capsule 1,000 unit PO DAILY Patient Comments: Supplement calcium carbonate 600 MG tablet 300 mg PO BID Patient Comments: supplement glucosamine sulf-chondroitinSA 1 EACH capsule 1 ea PO BID Patient Comments: supplement pantoprazole 40 MG tablet 40 mg PO DAILY Patient Comments: acid reflux med cetirizine 10 MG capsule 10 mg PO DAILY PRN (Reason: Allergies) meloxicam 15 mg tablet 15 mg PO DAILY epinephrine 0.3 mg/0.3 mL auto-injector 0.3 mg IM Q4H hydrochlorothiazide 12.5 mg tablet 12.5 mg PO DAILY losartan 50 mg tablet 50 mg PO BID metformin 500 mg tablet 500 mg PO BID simvastatin 10 mg tablet 10 mg PO DAILY Primary Care Provider: Buddy Hui Referrals: Buddy Hui MD [Primary Care Provider] - Print Language: Occitan
[2024-10-28] MEDS: 0.9% Normal Saline (1000mL) 1,000 ML 999 ML IV ×4 (10:05→19:33)
[2024-10-28 10:25] LABS: Hematocrit 40.3 % (37-47); Hemoglobin 14.2 g/dL (12.0-15.0); Immature Granulocytes Count 0.180 X10^3/uL (0.0-0.0); Mean Corp Hgb Conc 35.2 g/dL (32-36); Mean Corpuscular Volume 89.8 fL (81-99); Mean Platelet Vol. 10.2 fl (6.2-12.0); NRBC Flagged by Analyzer 0 % (0-5); POSITIVE DIFFERENTIAL YES; Platelet Count 315 K/mm3 (150-450); RBC Distribution Width CV 12.5 % (11.6-14.6); RBC Distribution Width SD 40.9 fl (35.1-43.9); Red Blood Count 4.49 M/mm3 (4.2-5.4); White Blood Count 20.5 K/mm3 (4.4-11.0)
--- OUTSIDE RECORDS SUMMARY | 2024-10-28 10:25 | XMS RPT_ITS | CCD ---
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 Buddy Hui Primary Care Provider Dr. Buddy Hui Referring Provider Naty BELLMAN DRIVERKHURRAM Attending Provider Antonio Hui MD Primary Care Provider Antonio Hui MD Primary Care Provider Dr. Buddy Hui Primary Care Provider Dr. Buddy Hui Referring Provider KHURRAM Alfonso NP Attending Provider Antonio Hui MD Primary Care Provider Podlogar NOZZLEMAN.Karla PALUMBO Unavailable Knoble NOZZLEMAN.Eufemia PALUMBO Unavailable Knoble NOZZLEMAN.Eufemia PALUMBO Unavailable Dr. Buddy Hui MD Primary Care Provider Dr. Raul Abreu DO Emergency Provider Knbalta NOZZLEMAN.Eufemia PALUMBO Unavailable ANTONIO HUI Referring Unavailab le ANTONIO HUI Primary Care Unavailab le PODLOGKARLA MAKI Attending Unavailable ANTONIO HUI Primary Care Unavailab le BURSLEY, CHRISTOPHER B Primary Care Unavailab abelino PODKARLA COULTER Attending Unavailable BURSLEY, CHRISTOPHER B Attending Unavailab le BURSLEY, CHRISTOPHER B Primary Care Unavailab le BURSLEY, CHRISTOPHER B Referring Unavailab le BURSLEY, CHRISTOPHER B Primary Care Unavailab le BURSLEY, CHRISTOPHER B Primary Care Unavailab le BURSLEY, CHRISTOPHER B Primary Care Unavailab le BURSLEY, CHRISTOPHER B Primary Care Unavailab le BURSLEY, CHRISTOPHER B Attending Unavailab le BURSLEY, CHRISTOPHER B Primary Care Unavailab le Klusty-Filiberto PAULSON, Dr. Carter Attending Provider Kuldip HARTMANN, Dr. De La Fuente Attending Provider Ez HARTMANN, Dr. Goodwin Referring Provider [phone] Naty BELLMAN DRIVER-C, Bessy Attending Provider Kuldip HARTMANN, Dr. De La Fuente Attending Provider Naty BELLMAN DRIVER-C, Bessy Referring Provider Bessy Alfonso Attending Unavailable NatyBessy Referring Unavailable Bursley, Buddy Primary Care Unavailable Bursley, Buddy Primary Care Unavailable Shade Richards Attending Unavailable Bursley, Buddy Primary Care Unavailable Raul Abreu Attending Unavailabl e Bessy Alfonso Attending Unavailable Bursley, Buddy Referring Unavailable Bursley, Buddy Primary Care Unavailable DONATORYSOFY TATE Attending Unavailable BURSLEY, CHRISTOPHER B Primary Care Unavailab le BURSLEY, CHRISTOPHER B Primary Care Unavailab le HAWRYLUK, SOFY Referring Unavailable BURSLEY, CHRISTOPHER B Primary Care Unavailab le HAWRYLUK, SOFY Referring Unavailable HAWRYLUKDEXTERSOFY Attending Unavailable Allergies Allergy Classification Reported Allergen(s) Allergy Type Date of Onset Reaction(s) Facility (20 sources) Codeine; Translations: [CODEINE] Drug Allergy 10-06-19 12 Anaphylaxis [facility] Work Phone: (2 sources) Contrast media Allergy to substance 06-28-19 22 Anaphylaxis [facility] Work Phone: (9 sources) Shellfish; Translations: [shellfish derived] Allergy to substance 06-28-19 Nausea/Vom/[facility] (20 sources) squash allergenic extract; Translations: [SQUASH] Drug Allergy 03-13-19 19 GI Upset [facility] (2 sources) strawberry allergenic extract Drug Allergy 06-28-19 22 Hives [facility] Work Phone: (9 sources) Sulfonamides (Antibiotic); Translations: [Sulfa (Sulfonamide Antibiotics)] Allergy to substance 06-28-19 Anaphylaxis [facility] (8 sources) pineapple Propensity to adverse reactions 06-28-19 22 Nausea/Vom/[facility] (2 sources) cherries Propensity to adverse reactions 06-28-19 Nausea/Vom/[place] [facility] Work Phone: (2 sources) walnuts Propensity to adverse reactions 06-28-19 Nausea/Vom/[place] [facility] Work Phone: (20 sources) michael allergenic extract Drug Allergy 03-13-19 19 GI Upset [facility] (20 sources) Contrast media; Translations: [CONTRAST DYE] Drug Allergy 10-06-19 12 Anaphylaxis [facility] Work Phone: (20 sources) Shellfish; Translations: [SHELLFISH CONTAINING PRODUCTS] Drug Allergy 04-30-19 17 GI Upset [facility] Work Phone: (20 sources) [place] Food Intolerance 03-13-19 19 Other: See Comments [facility] (20 sources) walnut allergenic extract; Translations: [WALNUT] Drug Allergy 03-13-19 19 GI Upset [facility] (20 sources) Sulfa Dyne; Translations: [SULFA DYNE] Drug Allergy 10-06-19 12 Anaphylaxis [facility] Work Phone: (6 sources) Triiodobenzoic Acids Allergy to substance 09-06-19 Anaphylaxis [facility] (1 source) Codeine Drug Allergy 09-19-19 [facility] Repository (1 source) Iodinated Contrast Media Drug allergy (disorder) 09-19-19 [facility] Repository (1 source) pineapple Drug allergy (disorder) 09-19-19 [facility] Repository (1 source) walnut Drug allergy (disorder) 09-19-19 [facility] Repository Medications Current Medications Medication Drug Class(es) Dates Sig (Normalized) Sig (Original) aspirin 81 mg chewable tablet (20 sources) Platelet Aggregation Inhibitor, Nonsteroidal Anti-inflammatory Drug Start: 06-05-2013 take 1 tablet by mouth once daily Aspirin 81 MG tablet,chewable Active 81 mg PO DAILY@0800 June 05, 2013 12:00am take 1 tablet by mouth once gini y Aspirin 81 mg Tab Take 81 mg by mouth once daily. Active Comment on above: Take 81 mg by mouth. Take 81 mg by mouth once daily. benzonatate 100 mg oral capsule (20 sources) Non-narcotic Antitussive Start: 4 take 1 capsule by mouth every eight hours as needed benzonatate (TESSALON PERLE) 100 mg capsule Take 1 capsule by mouth three times a day as needed for cough. 21 capsule 01/30/2024 Active Blood-Glucose Meter (CONTOUR NEXT ONE METER) (20 sources) Start: 3 Blood-Glucose Meter (CONTOUR NEXT ONE METER) Indications: Diabetes mellitus type II (HCC) Check blood sugar twice daily and as needed 1 Each 04/14/2022 Active Start: 04-14-2022 Blood-Glucose Meter (CONTOUR NEXT ONE METER) Indications: Diabetes mellitus type II (HCC) Check blood sugar twice daily and as needed 1 Each 0 04/14/2022 Active Start: 03-31-2022 End: 04-14-2022 Blood-Glucose Meter (CONTOUR NEXT ONE METER) Indications: Diabetes mellitus type II (HCC) Check blood sugar twice daily and as needed 1 Each 0 03/31/2022 04/14/2022 Discontinued Comment on above: Check blood sugar tw ice daily and as needed calcium carbonate 1500 mg oral tablet (8 sources) Start: 02-20-2016 Calcium Carbonate 600 MG tablet Active 300 mg PO TWICE A DAY February 20, 2016 1:00am Start: 02-20-2016 take 300 mg by mouth twice sabino ly Calcium Carbonate Active 300 MG PO TWICE A DAY February 20, 2016 12:00am Calcium Carbonate / vitamin D3 (20 sources) CALCIUM CARBONAT E/VITAMIN D3 (CALTRATE 600 + D ORAL) Take by mouth twice daily. Active CALCIUM CARBONAT E/VITAMIN D3 (CALTRATE 600 + D ORAL) Take by mouth twice daily. 0 Active CALCIUM CARBONAT E/VITAMIN D3 (CALTRATE 600 + D ORAL) Take by mouth. 0 Active Comment on above: Take by mouth. Take by mouth twice daily. cetirizine hydrochloride 10 mg oral capsule (20 sources) Histamine-1 Receptor Antagonist Start: 10-23-19 19 take 1 capsule by mouth once daily as needed Cetirizine 10 MG capsule Active 10 mg PO DAILY as needed for Allergies October 22, 2018 12:00am Comment on above: Take by mouth. cholecalciferol 0.025 mg oral capsule (20 sources) Vitamin D Start: 06-06-19 14 take 1 capsule by mouth once daily Cholecalciferol (Vitamin D3) 1,000 UNIT capsule Active 1000 U PO DAILY June 05, 2013 12:00am Comment on above: Take by mouth. chondroitin sulfates 200 mg / glucosamine sulfate 250 mg oral capsule (8 sources) Start: 02-20-20 16 take 1 capsule by mouth twice daily Glucosamine Sulf-Chondroitinsa 1 EACH capsule Active 1 NMA PO TWICE A DAY February 20, 2016 1:00am Start: 02-20-2016 Glucosamine Archuleta lf-Chondroitinsa Active 1 EACH PO TWICE A DAY February 20, 2016 12:00am [id number] 0.3 ml EPINEPHrine 1 mg/ml auto-injector (20 sources) alpha-Adrenergic Agonist, beta-Adrenergic Agonist, Catecholamine Start: 03-28-2023 Epinephrine 0.3 mg/0.3 mL auto-injector Active 0.3 mg IM Q4H March 28, 2023 1:00am Start: 02-15-2023 End: 01-16-2024 EPINEPHrine (EPIPEN) 0.3 mg/ 0.3 mL auto-injector 1 INJECTION NEEDED IN THIGH 2 Each 1 01/16/2024 Active Start: 10-07-2020 End: 03-09-2022 EPINEPHrine (EPIPEN) 0.3 mg/ 0.3 mL auto-injector 1 INJECTION NEEDED IN THIGH 2 Each 1 03/09/2022 Active Comment on above: 1 INJECTION NEEDE D IN THIGH glucosamine/msm/chondroit sulf (GLUCOSAMINE [id number] ORAL) (17 sources) glucosamine/msm/ chondroit sulf (GLUCOSAMINE [id number] ORAL) Active hydroCHLOROthiazide 12.5 mg oral tablet (20 sources) Thiazide Diuretic Start: 2022 End: 2024 take 1 tablet by mouth once daily Hydrochlorothiazide 12.5 mg tablet Active 12.5 mg PO DAILY March 28, 2023 1:00am Start: 11-12-2020 End: 03-09-2022 take 1 tablet by mouth once daily hydroCHLOROthiazide (HYDRODIURIL, ESIDRIX) 12.5 mg tablet Indications: Essential hypertension Take 1 tablet by mouth once daily. 90 tablet 3 03/09/2022 Active Start: 10-23-2018 End: 03-28-2023 Hydrochlorothiazide 25 MG ta blet Discontinued 12.5 mg PO EVERY MORNING October 23, 2018 12:00am March 28, 2023 12:07pm Start: 10-23-2018 End: 03-28-2023 take 12.5 mg by mouth once daily in the morning Hydrochlorothiazide Discontinued 12.5 MG PO EVERY MORNING October 22, 2018 11:00pm March 28, 2023 11:07am Start: 05-02-2017 End: 10-23-2018 take 1 tablet by mouth once daily in the morning Hydrochlorothiazide 25 mg tablet Discontinued 25 mg PO EVERY MORNING May 02, 2017 1:00am October 23, 2018 11:49am Comment on above: Take 1 tablet by talat th once daily. losartan potassium 50 mg oral tablet (20 sources) Angiotensin 2 Receptor Cem Start: 03-28-2023 take 1 tablet by mouth twice daily Losartan 50 mg tablet Active 50 mg PO TWICE A DAY March 28, 2023 1:00am Start: 02-15-2023 End: 08-02-2024 losartan (COZAAR) 50 mg tabl et Indications: Essential hypertension Take two tablets daily 180 tablet 1 08/02/2024 Active Start: 11-12-2020 End: 03-09-2022 losartan (COZAAR) 50 mg tabl et Indications: Essential hypertension Take two tablets daily 180 tablet 3 03/09/2022 Active Start: 07-05-2019 End: 03-28-2023 take 1 tablet by mouth once daily Losartan 100 mg tablet Discontinued 100 mg PO DAILY July 05, 2019 12:00am March 28, 2023 12:07pm Comment on above: Take two tablets sabino ly meloxicam 15 mg oral tablet (20 sources) Nonsteroidal Anti-inflammatory Drug Start: 12-21-2022 End: 05-08-2024 take 1 tablet by mouth once daily Meloxicam 15 mg tablet Active 15 mg PO DAILY December 21, 2022 12:00am Start: 06-21-2022 End: 08-30-2022 take 1 tablet by mouth once daily meloxicam (MOBIC) 15 mg tablet Take 1 tablet by mouth once daily. 90 tablet 1 08/30/2022 Active Comment on above: Take 1 tablet by talat once daily. metFORMIN hydrochloride 500 mg oral tablet (20 sources) Biguanide Start: 11-12-2020 End: 01-29-2025 take 1 tablet by mouth twice daily Metformin 500 mg tablet Active 500 mg PO TWICE A DAY March 28, 2023 1:00am Start: 04-28-2020 End: 03-28-2023 take 1 tablet by mouth twice daily Metformin 500 MG tablet extended release 24 hr Discontinued 500 mg PO TWICE A DAY April 28, 2020 1:00am March 28, 2023 12:07pm Comment on above: Take 1 tablet by talat twice daily with meals. . Take 1 tablet by talat th two times a day with meals. . nitrofurantoin, macrocrystals 25 mg / nitrofurantoin, monohydrate 75 mg oral capsule (4 sources) Nitrofuran Antibacterial Start: End: take 1 capsule by mouth twice daily at mealtime nitrofurantoin monohydrate and macrocrystal (MACROBID) 100 mg capsule Indications: UTI symptoms Take 1 capsule by mouth two times a day with meals for 5 days. 10 capsule 04/11/2024 04/16/2024 Active Start: 03-12-2024 End: 03-17-2024 take 1 capsule by mouth twice daily nitrofurantoin monohydrate and macrocrystal (MACROBID) 100 mg capsule Take 1 capsule by mouth two times a day for 5 days. 10 capsule 03/12/2024 03/17/2024 Active pantoprazole 40 mg delayed release oral tablet (20 sources) Proton Pump Inhibitor Start: 02-20-2016 End: 01-29-2025 take 1 tablet by mouth once daily Pantoprazole 40 MG tablet Active 40 mg PO DAILY February 20, 2016 1:00am Comment on above: Take 1 tablet by talat once daily. phenazopyridine hydrochloride 200 mg oral tablet (17 sources) Start: 03-12-2024 End: 04-30-2024 take 1 tablet by mouth three times daily as needed phenazopyridine (PYRIDIUM) 200 mg tablet Indications: UTI symptoms Take 1 tablet by mouth three times a day as needed. 12 tablet 04/11/2024 Active predniSONE 20 mg oral tablet (1 source) Start: 02-21-2024 End: 02-26-2024 take 2 tablets by mouth once daily predniSONE (DELTASONE) 20 mg tablet Take 2 tablets by mouth once daily for 5 days. 10 tablet 02/21/2024 02/26/2024 Active simvastatin 10 mg oral tablet (20 sources) HMG-CoA Reductase Inhibitor Start: 02-15-2023 End: 01-05-2025 take 1 tablet by mouth once daily Simvastatin 10 mg tablet Active 10 mg PO DAILY March 28, 2023 1:00am Start: 08-04-2021 End: 12-30-2022 take 1 tablet by mouth once daily at bedtime simvastatin (ZOCOR) 10 mg tablet Take 1 tablet by mouth daily at bedtime. 90 tablet 1 03/09/2022 12/30/2022 Discontinued Start: 06-05-2013 End: 03-28-2023 take 1 tablet by mouth at bedtime Simvastatin 5 MG tablet Discontinued 5 mg PO AT BEDTIME June 05, 2013 12:00am March 28, 2023 12:08pm Comment on above: Take 1 tablet by talat daily at bedtime. Tirzepatide (Mounjaro) 12.5 mg/0.5 mL pen injector (9 sources) Start: 09-12-2023 Tirzepatide (Mounjaro) 12.5 mg/0.5 mL pen injector Active 15 mg SC EVERY WEEK September 12, 2023 1:11pm Start: 07-13-2022 End: 09-12-2023 Tirzepatide (Mounjaro) 12.5 mg/0.5 mL pen injector Discontinued 12.5 mg SC EVERY WEEK July 13, 2022 12:00am September 12, 2023 1:12pm Start: 07-13-2022 Tirzepatide (M ounjaro) 12.5 mg/0.5 mL pen injector Active 12.5 MG SC EVERY WEEK July 12, 2022 11:00pm Start: 07-13-2022 Tirzepatide (M ounjaro) 12.5 mg/0.5 mL pen injector Active 12.5 MG SC EVERY WEEK July 13, 2022 12:00am tirzepatide (MOUNJARO) 15 mg/0.5 mL pen injector (20 sources) Start: 08-22-2024 End: 02-18-2025 inject 15 mg by subcutaneous injection every week tirzepatide (MOUNJARO) 15 mg/0.5 mL pen injector Inject 15 mg subcutaneously one time a week. 6 mL 1 08/22/2024 02/18/2025 Active Start: 07-09-2024 End: 08-21-2024 inject 15 mg by subcutaneous injection every week tirzepatide (MOUNJARO) 15 mg/0.5 mL pen injector Inject 15 mg subcutaneously one time a week. 6 mL 1 07/09/2024 08/21/2024 Discontinued Start: 07-09-2024 End: 01-05-2025 inject 15 mg by subcutaneous injection every week tirzepatide (MOUNJARO) 15 mg/0.5 mL pen injector Inject 15 mg subcutaneously one time a week. 6 mL 1 07/09/2024 01/05/2025 Active Start: 01-16-2024 End: 07-09-2024 inject 15 mg by subcutaneous injection every week tirzepatide (MOUNJARO) 15 mg/0.5 mL pen injector Inject 15 mg subcutaneously one time a week. 6 mL 1 01/16/2024 07/09/2024 Discontinued Start: 01-16-2024 End: 07-14-2024 inject 15 mg by subcutaneous injection every week tirzepatide (MOUNJARO) 15 mg/0.5 mL pen injector Inject 15 mg subcutaneously one time a week. 6 mL 1 01/16/2024 07/14/2024 Active Start: 10-07-2023 End: 04-04-2024 inject 15 mg by subcutaneous injection every week tirzepatide (MOUNJARO) 15 mg/0.5 mL pen injector Inject 15 mg subcutaneously one time a week. 6 mL 1 10/07/2023 04/04/2024 Active Start: 06-10-2023 End: 10-07-2023 inject 15 mg by subcutaneous injection every week tirzepatide (MOUNJARO) 15 mg/0.5 mL pen injector Inject 15 mg subcutaneously one time a week. 6 mL 1 06/10/2023 10/07/2023 Discontinued Start: 06-10-2023 End: 12-07-2023 inject 15 mg by subcutaneous injection every week tirzepatide (MOUNJARO) 15 mg/0.5 mL pen injector Inject 15 mg subcutaneously one time a week. 6 mL 1 06/10/2023 12/07/2023 Active Comment on above: Inject 15 mg subcuta neously one time a week. Turmeric extract (20 sources) Start: 02-11-2022 take 1 capsule by mouth once daily turmeric 400 mg cap Take 1 capsule by mouth once daily. 02/11/2022 Active Start: 02-11-2022 take 1 capsule by mo uth once daily turmeric 400 mg cap Take 1 capsule by mouth once daily. 0 02/11/2022 Active Comment on above: Take 1 capsule by mo uth once daily. 24 hr venlafaxine 75 mg extended release oral capsule (20 sources) Serotonin and Norepinephrine Reuptake Inhibitor Start: 12-22-19 End: 09-19-19 take 1 capsule by mouth every twenty-four hours at bedtime Venlafaxine 75 mg capsule,extended release 24hr Active 75 mg PO AT BEDTIME 90 September 18, 2024 2:47pm Start: 03-08-2017 End: 12-21-2022 take 1 capsule by mouth once daily Venlafaxine 75 mg capsule,extended release 24hr Discontinued 75 mg PO daily 90 2 March 10, 2022 8:16am July 13, 2022 1:08pm Comment on above: Take 1 capsule by mo uth once daily. Completed/Discontinued Medications Medication Drug Class(es) Dates Sig (Normalized) Sig (Original) acetaminophen 325 mg / HYDROcodone bitartrate 5 mg oral tablet (8 sources) Opioid Agonist Start: 06-30-2017 End: 06-07-2018 Hydrocodone-Acetami nophen 1 EACH tablet Discontinued 1 - 2 NMA PO 4 TIMES DAILY NEEDED as needed for Pain 8 2 0 June 30, 2017 12:00am June 07, 2018 2:53pm Pleurodynia Pleurodynia Start: 06-30-2017 End: 06-07-2018 Hydrocodone-Acetaminophen Di scontinued 1 - 2 EACH PO 4 TIMES DAILY NEEDED 8 2 June 29, 2017 11:00pm June 07, 2018 1:53pm acetaminophen 325 mg / oxyCODONE hydrochloride 5 mg oral tablet (5 sources) Opioid Agonist Start: 12-23-2022 End: 09-12-2023 Oxycodone-Acetaminophen (Percocet) 5-325 mg tablet Discontinued 1 {tbl} PO Q8H as needed for pain 10 3 0 December 23, 2022 September 12, 2023 1:10pm Stress incontinence in female Stress incontinence (female) (male) amLODIPine 10 mg oral tablet (16 sources) Dihydropyridine Calcium Channel Cem Start: 05-02-2017 End: 10-23-2018 take 1 tablet by mouth once daily Amlodipine 10 mg tablet Discontinued 10 mg PO daily May 02, 2017 1:00am October 23, 2018 11:45am Start: 02-24-2014 End: 05-02-2017 take 1 tablet by mouth at bedtime Amlodipine 5 MG tablet Discontinued 5 mg PO AT BEDTIME February 24, 2014 1:00am May 02, 2017 9:34am cephalexin 500 mg oral capsule (5 sources) Cephalosporin Antibacterial Start: 12-23-2022 End: 09-12-2023 take 1 capsule by mouth every twelve hours Cephalexin 500 mg capsule Discontinued 500 mg PO EVERY 12 HOURS 6 3 0 December 23, 2022 12:00am September 12, 2023 1:10pm post-operative cyclobenzaprine hydrochloride 5 mg oral tablet (20 sources) Muscle Relaxant Start: 08-06-2024 End: 09-18-2024 take 1 tablet by mouth three times daily as needed for muscle spasms Cyclobenzaprine 5 mg tablet Discontinued 5 mg PO THREE TIMES A DAY as needed for muscle spasm 9 3 0 August 06, 2024 12:00am September 18, 2024 2:32pm Start: 04-02-2024 take 1 tablet by talat twice daily as needed for muscle spasms cyclobenzaprine (FLEXERIL) 10 mg tablet Indications: Acute pain of left shoulder Take 1 tablet by mouth two times a day as needed for muscle spasm. 30 tablet 04/02/2024 Active Start: 02-21-2024 take 1 tablet by talat th every eight hours as needed cyclobenzaprine (FLEXERIL) 10 mg tablet Take 1 tablet by mouth three times a day as needed for muscle spasm. 10 tablet 02/21/2024 Active gabapentin 100 mg oral capsule (20 sources) Anti-epileptic Agent Start: 08-21-2021 End: 10-07-2023 take 1 capsule by mouth three times daily gabapentin (NEURONTIN) 100 mg capsule Take 100 mg by mouth three times daily. 0 08/21/2021 10/07/2023 Discontinued (Course of therapy completed) Comment on above: Take 100 mg by mouth three times daily. Glucosamine (20 sources) End: 10-07-2023 glucosamine sulfate (GLUCOSAMINE ORAL) Take by mouth twice daily. 0 10/07/2023 Discontinued (Course of therapy completed) glucosamine sulf ate (GLUCOSAMINE ORAL) Take by mouth twice daily. 0 Active Comment on above: Take by mouth twice daily. ibuprofen 800 mg oral tablet (8 sources) Nonsteroidal Anti-inflammatory Drug Start: 6 End: 8 take 1 tablet by mouth three times daily as needed for pain Ibuprofen 800 MG tablet Discontinued 800 mg PO THREE TIMES A DAY as needed for Pain 40 0 February 26, 2016 12:52pm March 08, 2017 3:14pm lisinopril 40 mg oral tablet (8 sources) Angiotensin Converting Enzyme Inhibitor Start: 9 End: 0 take 1 tablet by mouth once daily Lisinopril 40 MG tablet Discontinued 40 mg PO DAILY 30 0 October 23, 2018 12:00am July 05, 2019 2:35pm nabumetone 500 mg oral tablet (20 sources) Nonsteroidal Anti-inflammatory Drug Start: 1 End: 3 take 1 tablet by mouth twice daily nabumetone (RELAFEN) 500 mg tablet Take 500 mg by mouth twice daily. 0 01/13/2021 06/21/2022 Discontinued (Course of therapy completed) Start: 01-13-2021 take 1 tablet by talat th once daily nabumetone (RELAFEN) 500 mg tablet Take 500 mg by mouth once daily. 0 01/13/2021 Active Comment on above: Take 500 mg by mouth once daily. Take 500 mg by mouth twice daily. ondansetron 4 mg disintegrating oral tablet (20 sources) Serotonin-3 Receptor Antagonist Start: 01-16-2022 End: 10-07-2023 ondansetron orally disintegrating (ZOFRAN ODT) 4 mg disintegrating tablet Start: 06-27-2021 End: 07-09-2021 take 1 tablet by mouth every eight hours as needed for nausea and vomiting Ondansetron 4 mg tablet,disintegrating Discontinued 4 mg PO Q8H as needed for nausea and vomiting 10 0 June 27, 2021 12:00am July 09, 2021 1:00pm polyethylene glycol 3350 [id number] mg / potassium chloride 2970 mg / sodium bicarbonate 6740 mg / sodium chloride 5860 mg / sodium sulfate 38150 mg powder for oral solution (1 source) Osmotic Laxative Start: 08-25-2021 End: 08-25-2021 peg 3350-Electrolytes (GOLYTELY) 236-22.74-6.74 -5.86 gram suspension Take 4,000 mL by mouth one time only for 1 dose. 1 Each 0 08/25/2021 08/25/2021 Comment on above: Take 4,000 mL by talat one time only for 1 dose. potassium gluconate 2.5 meq oral tablet (8 sources) Start: 10-22-2018 End: 10-23-2018 take 1 tablet by mouth once daily Potassium 99 MG tablet Discontinued 99 mg PO DAILY October 22, 2018 12:00am October 23, 2018 11:51am tirzepatide (MOUNJARO) 10 mg/0.5 mL pen injector (17 sources) Start: 08-12-2022 End: 08-17-2022 inject 10 mg by subcutaneous injection every week tirzepatide (MOUNJARO) 10 mg/0.5 mL pen injector Indications: Diabetes mellitus type II (HCC) , Obesity, Class III, BMI 40-49.9 (morbid obesity) (HCC) Inject 10 mg subcutaneously one time a week. 6 mL 1 08/12/2022 08/17/2022 Discontinued Start: 08-12-2022 End: 02-08-2023 inject 10 mg by subcutaneous injection every week tirzepatide (MOUNJARO) 10 mg/0.5 mL pen injector Indications: Diabetes mellitus type II (HCC) , Obesity, Class III, BMI 40-49.9 (morbid obesity) (HCC) Inject 10 mg subcutaneously one time a week. 6 mL 1 08/12/2022 02/08/2023 Active Start: 02-16-2022 End: 08-12-2022 inject 10 mg by subcutaneous injection every week tirzepatide (MOUNJARO) 10 mg/0.5 mL pen injector Indications: Diabetes mellitus type II (HCC) , Obesity, Class III, BMI 40-49.9 (morbid obesity) (HCC) Inject 10 mg subcutaneously one time a week. 12 Each 1 02/16/2022 08/12/2022 Discontinued Start: 02-16-2022 inject 10 mg by subc utaneous injection every week tirzepatide (MOUNJARO) 10 mg/0.5 mL pen injector Indications: Diabetes mellitus type II (HCC) , Obesity, Class III, BMI 40-49.9 (morbid obesity) (HCC) Inject 10 mg subcutaneously one time a week. 12 Each 1 02/16/2022 Active Start: 02-16-2022 End: 05-17-2022 inject 10 mg by subcutaneous injection every week tirzepatide (MOUNJARO) 10 mg/0.5 mL pen injector Indications: Diabetes mellitus type II (HCC) , Obesity, Class III, BMI 40-49.9 (morbid obesity) (HCC) Inject 10 mg subcutaneously one time a week. 12 Each 1 02/16/2022 05/17/2022 Active Start: 02-11-2022 End: 02-16-2022 inject 10 mg by subcutaneous injection every week tirzepatide (MOUNJARO) 10 mg/0.5 mL pen injector Indications: Diabetes mellitus type II (HCC) , Obesity, Class III, BMI 40-49.9 (morbid obesity) (HCC) Inject 10 mg subcutaneously one time a week. 12 Each 1 02/11/2022 02/16/2022 Discontinued Comment on above: Inject 10 mg subcuta neously one time a week. tirzepatide (MOUNJARO) 12.5 mg/0.5 mL pen injector (20 sources) Start: 023 End: inject 12.5 mg by subcutaneous injection every week tirzepatide (MOUNJARO) 12.5 mg/0.5 mL pen injector Inject 12.5 mg subcutaneously one time a week. 6 mL 1 02/15/2023 06/10/2023 Discontinued Start: 02-15-2023 End: 08-14-2023 inject 12.5 mg by subcutaneous injection every week tirzepatide (MOUNJARO) 12.5 mg/0.5 mL pen injector Inject 12.5 mg subcutaneously one time a week. 6 mL 1 02/15/2023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 Anaphylaxis Anchor GI Upset Current Outpatient Medications Medication Sig Dispense Refill tirzepatide (MOUNJARO) 15 mg/0.5 mL pen injector Inject 15 mg subcutaneously one time a week. 6 mL 1 meloxicam (MOBIC) 15 mg tablet Take 1 tablet by mouth once daily. 90 tablet 0 meloxicam (MOBIC) 15 (more content not included)... Normal [facility] Emergency Department Summary on 08-06-2024 Emergency Department Summary [facility] Medical Records Department [address] [place] [address] Emergency Department Summary 08/06/24 MR#: [id number] Acct: [id number] Name: FANTASMA RHOADES Rep #: [id number] : 1970 54 From: Raul Abreu DO PCP: Dr. Buddy Hui MD Status:REG ER Location: ED HPI History of Present Illness Chief Complaint: Back Narrative Narrative: Chief complaint and HPI: Lumbar back pain. 54-year-old female with past medical history of DM2, HTN, HLD, DDD presents for evaluation of lumbar back pain. Onset yesterday after closing a window. Has not taken any Tylenol or Motrin. States she had a leftover muscle relaxer from months ago that provided little relief. Denies any direct trauma to the back. Denies numbness, weakness, urinary retention, stool or urinary incontinence, saddle anesthesia, recent invasive manipulation of the spine, intravenous drug use, or fever. Review of systems: See HPI Medications: As listed on the chart Allergies: As listed on the chart PFSH: Per chart Vital signs: As listed on the chart. Reviewed. Physical exam: Gen: A O x3, NAD Head: Normocephalic, atraumatic Eyes: No sclera icterus, conjunctiva clear ENT: Moist mucous membranes Neck: Trachea midline, No JVD CV: RRR, no murmurs, no peripheral edema Resp: Lungs CTA BL, no w/r/c GI: Abd soft, non-distended, non-tender, no r/r/g Musc: Limited range of motion secondary to back pain, no deformity, no midline spinal tenderness, no bony step-off, strength +5/5 of bilateral lower extremities, no signs of trauma or infection, patient is mildly tender to palpation of the right lumbar paraspinal musculature of the lower lumbar spine and in the right piriformis region-recreates her pain Skin: Warm, dry Neuro: Alert, oriented, grossly intact, sensation intact Psych: Cooperative, appropriate mood and affect [facility] Medical History JENNIFFER (stress urinary incontinence, female) Wears glasses Alcohol use Diabetes Bladder disease High cholesterol Back pain Dietary restriction Gastric reflux Former smoker History of echocardiogram History of stress test Endometriosis Hyperlipidemia Hypertension Home Medications ???Medication ???Instructions ???Recorded ???Last Taken ???Type aspirin 81 mg chewable tablet 81 mg PO DAILY@0800 06/05/1312/15 History cholecalciferol (vitamin D3) 25 1,000 unit PO DAILY 06/05/13 Unkno wn History mcg (1,000 unit) capsule calcium carbonate 300 mg PO BID 02/20/16 Unknown His tory glucosamine sulfate 250 1 ea PO BID 02/20/16 Unknown Histo ry mg-chondroitin sulfate A 200 mg capsule pantoprazole 40 mg tablet,delayed 40 mg PO DAILY 02/20/16 12/23/22 History release cetirizine 10 mg capsule 10 mg PO DAILY PRN Allergies 10/22 Unknown History meloxicam 15 mg tablet 15 mg PO DAILY 12/21/22 12/15/22 H istory epinephrine 0.3 mg/0.3 mL 0.3 mg IM Q4H 03/28/23 Unknown His tory injection, auto-injector hydrochlorothiazide 12.5 mg tablet 12.5 mg PO DAILY 03/28/23 Unknow n History losartan 50 mg tablet 50 mg PO BID 03/28/23 Unknown Hist ory metformin 500 mg tablet 500 mg PO BID 03/28/23 Unknown His tory simvastatin 10 mg tablet 10 mg PO DAILY 03/28/23 Unknown Hi story tirzepatide 12.5 mg/0.5 mL 15 mg subcut QWEEK 09/12/23 Unknow n History subcutaneous pen injector (Mounjaro) venlafaxine 75 mg capsule,extended 75 mg PO QHS #90 caps 02/27/24 U nknown Rx release 24 hr cyclobenzaprine 5 mg tablet 5 mg PO TID PRN muscle spasm 3 11/22 Unknown Rx days #9 tabs Allergy/AdvReac Type Severity Reaction Status Date / Time codeine Allergy Anaphylaxis Verified 08/06/24 08:24 Iodinated Contrast Media (iv Allergy Anaphylaxis Verified 08/06/24 08:24 contrast dye) shellfish derived Allergy Nausea/Vom/ Verified 08/06/24 08:24 Diarrhea Sulfa (Sulfonamide Allergy Anaphylaxis Verified 08/06/24 08:24 Antibiotics) pineapple (Pineapple) AdvReac Nausea/Vom/ Verified 08/06/24 08:24 Diarrhea squash AdvReac Nausea/Vom/ Verified 08/06/24 08:24 Diarrhea walnut AdvReac Nausea/Vom/ Verified 08/06/24 08:24 Diarrhea Family History Father Myocardial infarction Hypertension Mother Heart disease Hypertension Grandmother Heart disease Hypertension Surgical History S/P panniculectomy Hx of breast reduction, elective Hx of arthroscopy of right knee Labral tear of left hip joint History of lateral meniscus repair of left knee H/O laparoscopy H/O: hysterectomy Plantar fascia syndrome Social History Smoking Status: Former smo (more content not included)... Normal [facility] ALBUMIN/CREATININE RATIO, UR INEon 04-30-2024 Albumin DL <= 20 mg/L (U) [Mass/Vol] mg/dL Normal [facility] Comment on above: Order Comment: Speci men Type: URINE SPECIMENOrdering Facility: [facility] Address: [address] [place] [address] Performed By: #### U ACR ####[facility] LABIA [id number] [address] [place] Albumin/Creatinine (U) [Mass ratio] Normal [facility] Comment on above: Order Comment: Speci men Type: URINE SPECIMENOrdering Facility: [facility] Address: [address] [place] [address] Result Comment: Not calculated Adult Male and Female Nephrotic Criteria: <30 mg/g is considered normal to mildly increased 30-300 mg/g is considered moderately increased >300 mg/g is considered severely increased KDIGO. (2013). KDIGO 2012 Clinical Practice Guideline for the Evaluation and Management of Chronic Kidney Disease. Official Journal of the International Society of Nephrology, 3(1), 1-150. Performed By: #### U ACR ####[facility] LAB[facility] [id number] [place] [address] [place] Creatinine (U) [Mass/Vol] 29.8 mg/dL Normal 20.0-300.0 [facility] Comment on above: Order Comment: Speci men Type: URINE SPECIMENOrdering Facility: [facility] Address: [address] [place] [address] Performed By: #### U ACR ####[facility] LABIA [id number] [address] STATES OF [facility] CNOVon 04-30-2024 CNOV Office Visit (CRISTÓBALWS ) FANTASMA HOYT ([id number]) 1970 F Date Time Provider Department 04/30/24 3:00 PM MCLOGKARLA MAKI During your visit today, we recorded the following information about you: Pulse Respiration Blood pressure Weight 81/minute 18/minute 134/82 100.1 kg MclogKarla maki APRN.CNP 04/30/2024 4:03 PM Signed 04/11/2024 Patient presents with: F/U 6 months SUBJECTIVE: This is a 53 year old that is here today for Above Complaints. DIABETES MELLITUS: Since our last visit she denies excessive thirst or increased frequency of urination, chest pain or dyspnea , numbness, tingling or pain in extremities, new or unusual visual symptoms, low sugar/hypoglycemic reactions, weight loss/gain, lightheadedness/dizzine ss, and bowel changes/loose stools. Follows a diabetic diet most of the time. She is compliant with medication(s) and is tolerating med(s) without any side effects. She reports checking her glucose on a once a day schedule with sugars in the fasting 75-90 range. Patient's last HgA1C was Hemoglobin A1C (%) Date Value 10/07/2023 4.9 11/09/2022 5.3 01/31/2021 5.6 08/18/2020 5.8 ) Last Ophthalmology exam was has to make appointment HTN: Patient is compliant with meds Yes Monitors bp at home: No. Denies side effects: Yes. Chest pain: No. Dyspnea: No. Edema: No. Palpitations: No. Syncope: No. Headache: No. Dizziness: No. GERD: Taking pantoprazole as prescribed without side effects. Works well to control symptoms HYPERLIPIDEMIA: Patient is taking medications: Yes. Patient is watching diet: Yes. Patient denies myalgias: Yes. Patient denies gi upset: Yes PAST MEDICAL HISTORY Diagnosis Date Acute meniscal tear of left knee 2013 s/p repair Arthritis of left shoulder region mild DDD (degenerative disc disease), cervical DDD (degenerative disc disease), lumbar [facility] Ortho-Dr Castillo Diabetes mellitus type II (HCC) Endometriosis GERD (gastroesophageal reflux disease) Hot flashes Hyperlipidemia Hypertension Labral tear of hip, degenerative left hip, Seeing ortho Obesity Plantar fasciitis of right foot 2013 s/p plantar fasciotomy S/P hysterectomy LSO Seasonal allergies Uterine fibroid s/p hysterectomy ALLERGIES Codeine, Contrast Dye, Shellfish Containing Products, Squash, Sulfa Dyne, and Anchor MEDICATIONS Current Outpatient Medications Medication Sig phenazopyridine (PYRIDIUM) 200 mg tablet Take 1 tablet by mouth three times a day as needed. cyclobenzaprine (FLEXERIL) 10 mg tablet Take 1 tablet by mouth two times a day as needed for muscle spasm. phenazopyridine (PYRIDIUM) 200 mg tablet Take 1 tablet by mouth three times a day as needed. glucosamine/msm/chondro it sulf (GLUCOSAMINE [id number] ORAL) cyclobenzaprine (FLEXERIL) 10 mg tablet Take 1 tablet by mouth three times a day as needed for muscle spasm. benzonatate (TESSALON PERLE) 100 mg capsule Take 1 capsule by mouth three times a day as needed for cough. (Patient not taking: Reported on 02/21/2024) tirzepatide (MOUNJARO) 15 mg/0.5 mL pen injector Inject 15 mg subcutaneously one time a week. meloxicam (MOBIC) 15 mg tablet Take 1 tablet by mouth once daily. simvastatin (ZOCOR) 10 mg tablet Take 1 tablet by mouth daily at bedtime. EPINEPHrine (EPIPEN) 0.3 mg/0.3 mL auto-injector 1 INJECTION NEEDED IN THIGH pantoprazole DR (PROTONIX) 40 mg tablet Take 1 tablet by mouth once daily. hydroCHLOROthiazide 12.5 mg tablet Take 1 tablet by mouth once daily. metFORMIN (GLUCOPHAGE) 500 mg tablet Take 1 tablet by mouth two times a day with meals. . losartan (COZAAR) 50 mg tablet Take two tablets daily Blood-Glucose Meter (CONTOUR NEXT ONE METER) Check blood sugar twice daily and as needed blood sugar diagnostic (CONTOUR NEXT TEST STRIPS) test strip Check blood sugar twice a day and as needed Cholecalciferol, Vitamin D3, 25 mcg (1,000 unit) [...] mouth twice daily. No current facility-administered medications for this visit. Medications and allergies reviewed by this provider. SOCIAL HISTORY Social History Tobacco Use Smoking status: Former Current packs/day: 0.00 Average packs/day: 0.5 packs/day for 10.0 years (5.0 ttl pk-yrs) Types: Cigarettes Start date: 04/29/2001 Quit date: 04/30/2011 Years since quittin.0 Smokeless tobacco: Never Vaping Use Vaping status: Never Used Substance Use Topics Alcohol use: Not Currently Alcohol/week: 6.0 standard drinks of alcohol Types: 6 Glasses of wine per week Drug use: No REVIEW OF SYSTEMS A (more content not included)... Normal [facility] Bacteria Ur Culton 5 Bacteria identified Cx Nom (U) ORGANISM ID: 1 10,000 -<50,000 CFU/ml Normal urogenital pierre Normal [facility] Comment on above: Performed By: #### 6 30-4 ####[facility] LABCLIA [id number] [address] OF [facility] CNOVon 04-11-2024 CNOV Office Visit (CRISTÓBALWS ) EVELINAFANTASMA H ([id number]) 1970 F Date Time Provider Department 04/11/24 2:20 PM KARLA OCAMPO During your visit today, we recorded the following information about you: Temperature Pulse Respiration Blood pressure 97.1 degrees 76/minute 16/minute 126/82 Weight 98.4 kg Karla Ocampo APRN.CNP 04/11/2024 2:58 PM Signed Chief Complaint Patient presents with: UTI HPI Fantasma Elan Hoyt is a 53 year old female who presents here today for UTI. Patient was seen 03/12/2024 for UTI. Culture was negative. Completed antibiotic course and felt better until Tuesday when she started with burning, pressure and frequency Denies abdominal pain, back pain, nausea, vomiting or hematuria. Latest Ref Rng 04/11/2024 GLUCOSE UA (POCT) Negative mg/dL Negative BILIRUBIN UA (POCT) Negative Negative KETONE UA (POCT) Negative mg/dL Negative SPECIFIC GRAVITY UA (POCT) 1.005 - 1.030 >=1.030 HEMOGLOBIN/BLOOD UA (POCT) Negative Trace-intact ! PH UA (POCT) 4.5 - 8.0 5.5 PROTEIN UA (POCT) Negative mg/dL Negative UROBILINOGEN UA (POCT) Normal E.U./dL 0.2 NITRITE UA (POCT) Negative Negative LEUKOCYTES UA (POCT) Negative Small ! COLOR UA (POCT) Yellow CLARITY UA (POCT) Clear Legend: ! Abnormal Past medical history, appointments, medications, allergies reviewed. Previous Medical History PAST MEDICAL HISTORY Diagnosis Date Acute meniscal tear of left knee 2013 s/p repair Arthritis of left shoulder region mild DDD (degenerative disc disease), cervical DDD (degenerative disc disease), lumbar [place] [facility] Castillo Diabetes mellitus type II (HCC) Endometriosis GERD (gastroesophageal reflux disease) Hot flashes Hyperlipidemia Hypertension Labral tear of hip, degenerative left hip, Seeing ortho Obesity Plantar fasciitis of right foot 2013 s/p plantar fasciotomy S/P hysterectomy LSO Seasonal allergies Uterine fibroid s/p hysterectomy Previous [...] SURGICAL HISTORY OF Right 2015 meniscal tear PAST SURGICAL HISTORY OF 11/2022 Dr. Christiansen-Bladder Sling PAST SURGICAL HISTORY OF 08/19/2023 panniculectomy REDUCTION OF LARGE BREAST 07/2022 SCOPE, PLANTAR FASCIOTOMY Right 2013 Family History FAMILY HISTORY Problem Relation Age of Onset Hypertension Mother Heart Failure Mother 64 Heart Mother stents Hypertension Father Coronary Artery Disease Father 59 [place] in 2010- LDa Thyroid Sister Thyroid Sister Heart Maternal Grandmother Rheumatologic disease Paternal Grandmother arthritis Patient Allergies ALLERGIES Allergen Reactions Codeine Anaphylaxis Contrast Dye Anaphylaxis Shellfish Containin* GI Upset Squash GI Upset Sulfa Dyne Anaphylaxis Anchor GI Upset Current Medications Current Outpatient Medications on File Prior to Visit Medication Sig cyclobenzaprine (FLEXERIL) 10 mg tablet Take 1 tablet by mouth two times a day as needed for muscle spasm. phenazopyridine (PYRIDIUM) 200 mg tablet Take 1 tablet by mouth three times a day as needed. glucosamine/msm/chondro it sulf (GLUCOSAMINE [id number] ORAL) cyclobenzaprine (FLEXERIL) 10 mg tablet Take 1 tablet by mouth three times a day as needed for muscle spasm. benzonatate (TESSALON PERLE) 100 mg capsule Take 1 capsule by mouth three times a day as needed for cough. (Patient not taking: Reported on 02/21/2024) tirzepatide (MOUNJARO) 15 mg/0.5 mL pen injector Inject 15 mg subcutaneously one time a week. meloxicam (MOBIC) 15 mg tablet Take 1 tablet by mouth once daily. simvastatin (ZOCOR) 10 mg tablet Take 1 tablet by mouth daily at bedtime. EPINEPHrine (EPIPEN) 0.3 mg/0.3 mL auto-injector 1 INJECTION NEEDED IN THIGH pantoprazole DR (PROTONIX) 40 mg tablet Take 1 tablet by mouth once daily. hydroCHLOROthiazide 12.5 mg tablet Take 1 tablet by mouth once daily. metFORMIN (GLUCOPHAGE) 500 mg tablet Take 1 tablet by mouth two times a day with meals. . losartan (COZAAR) 50 mg tablet Take two tablets daily Blood-Glucose Meter (CONTOUR NEXT ONE METER) Check blood sugar twice daily and as needed blood sugar diagnostic (CONTOUR NEXT TEST STRIPS) test strip Check blood sugar twice a day and as needed Cholecalciferol, Vitamin D3, 25 mcg (1,000 unit) cap Take by mouth. turmeric 400 mg cap Take 1 capsule by mouth once daily. venlafaxine ER (EFFEXOR XR) 75 mg 24 hr capsu (more content not included)... Normal [facility] UA DIP, URINE (POC)on 2024 BILIRUBIN UA (POCT) Negative Negative [facility] CLARITY UA (POCT) Clear [facility] COLOR UA (POCT) Yellow [facility] GLUCOSE UA (POCT) Negative Negative mg/dL [facility] Hemoglobin Ql (U) Trace-intact Abnormal Negative [facility] Interpretation and review of laboratory results Abnormal [facility] KETONE UA (POCT) Negative Negative mg/dL [facility] LEUKOCYTES UA (POCT) Small Abnormal Negative [facility] NITRITE UA (POCT) Negative Negative [facility] PH UA (POCT) 5.5 4.5 - 8.0 [facility] Protein Ql (U) Negative Negative mg/dL [facility] SPECIFIC GRAVITY UA (POCT) >=1.030 1.005 - 1.030 [facility] UROBILINOGEN UA (POCT) 0.2 Viktoriya l E.U./dL [facility] Location:[address], [place], [place], [id number] [place] [address] POINT OF CARE [facility] CNOVon 04-02-2024 CNOV Office Visit (FAMPWS ) FANTASMA HOYT ([id number]) 1970 F Date Time Provider Department 04/02/24 10:00 AM ANTONIO HUIWS During your visit today, we recorded the following information about you: Pulse Respiration Blood pressure Weight 98/minute 16/minute 136/82 98 kg Antonio Hui MD 04/02/2024 11:33 AM Signed Chief Complaint Patient presents with: Pain (Shoulder Pain): X 1 month HPI Fantasma Ansari Evelina is a 53 year old female who presents here today for Above Complaints. Patient complaining of left posterior shoulder pain with occasional radiation down her left arm to her fingertips which started 1 month ago. Described as constant ache, currently 7/10. Exacerbated with reaching above her head, lifting, putting purse on her shoulder. Treating with icy/hot and got a massage which helps temporarily. On meloxicam daily without improvement. Admits to limited ROM. Denies neck pain, swelling, redness, bruising. Notes that she did slip and fall while shoveling snow about 1 month ago. Landed on her backside. Does not remember injuring her shoulder. Past medical history, appointments, medications, allergies reviewed. Previous Medical History PAST MEDICAL HISTORY Diagnosis Date Acute meniscal tear of left knee 2014 s/p repair DDD (degenerative disc disease), cervical DDD (degenerative disc disease), lumbar [facility] Ortho-Dr Jonathan Diabetes mellitus type II (HCC) Endometriosis GERD (gastroesophageal reflux disease) Hot flashes Hyperlipidemia Hypertension Labral tear of hip, degenerative left hip, Seeing ortho Obesity Plantar fasciitis of right foot 2013 s/p plantar fasciotomy S/P hysterectomy LSO Seasonal allergies Uterine fibroid s/p hysterectomy Previous [...] SURGICAL HISTORY OF Right 2015 meniscal tear PAST SURGICAL HISTORY OF 11/2022 Dr. Christiansen-Bladder Sling PAST SURGICAL HISTORY OF 08/19/2023 panniculectomy REDUCTION OF LARGE BREAST 07/2022 SCOPE, PLANTAR FASCIOTOMY Right 2013 Family History FAMILY HISTORY Problem Relation Age of Onset Hypertension Mother Heart Failure Mother 64 Heart Mother stents Hypertension Father Coronary Artery Disease Father 59 [place] in 2010- LDa Thyroid Sister Thyroid Sister Heart Maternal Grandmother Rheumatologic disease Paternal Grandmother arthritis Patient Allergies ALLERGIES Allergen Reactions Codeine Anaphylaxis Contrast Dye Anaphylaxis Shellfish Containin* GI Upset Squash GI Upset Sulfa Dyne Anaphylaxis Anchor GI Upset Current Medications Current Outpatient Medications on File Prior to Visit Medication Sig glucosamine/msm/chondro it sulf (GLUCOSAMINE [id number] ORAL) cyclobenzaprine (FLEXERIL) 10 mg tablet Take 1 tablet by mouth three times a day as needed for muscle spasm. tirzepatide (MOUNJARO) 15 mg/0.5 mL pen injector Inject 15 mg subcutaneously one time a week. meloxicam (MOBIC) 15 mg tablet Take 1 tablet by mouth once daily. simvastatin (ZOCOR) 10 mg tablet Take 1 tablet by mouth daily at bedtime. EPINEPHrine (EPIPEN) 0.3 mg/0.3 mL auto-injector 1 INJECTION NEEDED IN THIGH pantoprazole DR (PROTONIX) 40 mg tablet Take 1 tablet by mouth once daily. hydroCHLOROthiazide 12.5 mg tablet Take 1 tablet by mouth once daily. metFORMIN (GLUCOPHAGE) 500 mg tablet Take 1 tablet by mouth two times a day with meals. . losartan (COZAAR) 50 mg [...] D ORAL) Take by mouth twice daily. phenazopyridine (PYRIDIUM) 200 mg tablet Take 1 tablet by mouth three times a day as needed. benzonatate (TESSALON PERLE) 100 mg capsule Take 1 capsule by mouth three times a day as needed for cough. (Patient not taking: Reported on 02/21/2024) Blood-Glucose Meter (CONTOUR NEXT ONE METER) Check blood sugar twice daily and as needed blood sugar diagnostic (CONTOUR NEXT TEST STRIPS) test strip Check blood sugar twice a day and as needed No current facility-administered medications on file prior to visit. Social History Soc (more content not included)... Normal [facility] XR SHLDR >/=3V AP/MO AP/OTH R LTon 04-02-2024 XR SHLDR >/=3V AP/MO AP/OTHR LT * * *Final Report* * * DATE OF EXAM: Apr 02 2024 11:06AM [id number] - XR SHLDR >/=3V AP/MO AP/OTHR LT / PROCEDURE REASON: Acute pain of left shoulder * * * * Physician Interpretation * * * * PROCEDURE: Left shoulder INDICATION: Acute pain of left shoulder .PT STATES LEFT SHOULDER PAIN X 1 MONTH TECHNIQUE: XR SHLDR >/=3V AP/MO AP/OTHR LT COMPARISON: None FINDINGS: Minimal spurring at the AC joint. Glenohumeral joint and acromiohumeral interval are within normal limits. Mild degenerative change in the imaged cervical spine. Upper ribs are intact. No fracture or dislocation. IMPRESSION: Mild degenerative change [employer] Worker: SANGITA Transcribe Date/Time: Apr 04 2024 9:20A Dictated by : SANIA LANCE MD This examination was interpreted and the report reviewed and electronically signed by: SANIA LANCE MD on Apr 04 2024 9:21AM EST [id number] Normal [facility] CNPFrancie 03-13-2024 CNPN Telephone (UCWSTR) FANTASMA HOYT ([id number]) 1970 F Date Time Provider Department 03/13/24 KAMRYN DURAN [facility] During your visit today, we recorded the following information about you: Kamryn Duran PA 03/13/2024 1:16 PM Signed Please let patient know urine culture reveals no UTI. She may continue antibiotic if it is helping with symptoms. needs close follow-up with PCP to ensure resolution of blood in the urine Kallie Guevara MA 03/13/2024 2:21 PM Signed Patient given results and verbalized understanding of instructions given. Kallie Guevara MA Allergies As of Date: 03/13/2024 Noted Allergy Reaction CODEINE 10/06/2011 10 - Anaphylaxis CONTRAST DYE 10/06/2011 10 - Anaphylaxis SHELLFISH CONTAINING PRODUCTS 04/29/2016 8 - GI Upset SQUASH 03/13/2018 8 - GI Upset SULFA DYNE 10/06/2011 10 - Anaphylaxis WALNUT 03/13/2018 8 - GI Upset Date Reviewed: 03/12/2024 Reviewed by: Ethel Duke MA - Fully Assessed Reason for Visit: Results [95] Prescriptions as of 03/13/2024 - nitrofurantoin monohydrate and macrocrystal (MACROBID) 100 mg capsule Take 1 capsule by mouth two times a day for 5 days. - phenazopyridine (PYRIDIUM) 200 mg tablet Take 1 tablet by mouth three times a day as needed. - glucosamine/msm/chondro it sulf (GLUCOSAMINE [id number] ORAL) - cyclobenzaprine (FLEXERIL) 10 mg tablet Take 1 tablet by mouth three times a day as needed for muscle spasm. - benzonatate (TESSALON PERLE) 100 mg capsule Take 1 capsule by mouth three times a day as needed for cough. - tirzepatide (MOUNJARO) 15 mg/0.5 mL pen injector Inject 15 mg subcutaneously one time a week. - meloxicam (MOBIC) 15 mg tablet Take 1 tablet by mouth once daily. - simvastatin (ZOCOR) 10 mg tablet Take 1 tablet by mouth daily at bedtime. - EPINEPHrine (EPIPEN) 0.3 mg/0.3 mL auto-injector 1 INJECTION NEEDED IN THIGH - pantoprazole DR (PROTONIX) 40 mg tablet Take 1 tablet by mouth once daily. - hydroCHLOROthiazide 12.5 mg tablet Take 1 tablet by mouth once daily. - metFORMIN (GLUCOPHAGE) 500 mg tablet Take 1 tablet by mouth two times a day with meals. . - losartan (COZAAR) 50 mg tablet Take two tablets daily - Blood-Glucose Meter (CONTOUR NEXT ONE METER) Check blood sugar twice daily and as needed - blood sugar diagnostic (CONTOUR NEXT TEST STRIPS) test strip Check blood sugar twice a day and as needed - Cholecalciferol, Vitamin D3, 25 mcg (1,000 unit) cap Take by mouth. - turmeric 400 mg cap Take 1 capsule by mouth once daily. - venlafaxine ER (EFFEXOR XR) 75 mg 24 hr capsule Take 1 capsule by mouth once daily. - Cetirizine 10 mg cap Take by mouth. - Aspirin 81 mg Tab Take 81 mg by mouth once daily. - CALCIUM CARBONATE/VITAMIN D3 (CALTRATE 600 + D ORAL) Take by mouth twice daily. Problem List As Of Date 03/13/2024 Noted Resolved Hypertension [I10] Hyperlipidemia [E78.5] GERD (gastroesophageal reflux disease) [K21.9] Labral tear of hip, degenerative [M24.159] Morbid obesity with BMI of 40.0-44.9, adult (HC* 10/07/2023 Prediabetes [R73.03] 12/27/2018 DDD (degenerative disc disease), cervical [M50.*09/18/2018 Acute back pain with sciatica [M54.40] 09/18/2018 DDD (degenerative disc disease), lumbar [M51.36* Endometriosis [N80.9] Diabetes mellitus type II (HCC) [E11.9] S/P bilateral breast reduction [Z98.890] 08/14/2022 Obesity [E66.9] 10/07/2023 Encounter Status:Closed by KALLIE GUEVARA on 03/13/24 Normal [facility] Bacteria Ur Culton 5 Bacteria identified Cx Nom (U) ORGANISM ID: 1 10,000 -<50,000 CFU/ml Normal urogenital pierre Normal [facility] Comment on above: Performed By: #### 6 30-4 ####[facility] LABCLIA [id number] [address] OF [facility] CNOVon 03-12-2024 CNOV Office Visit (UCWSTR ) FANTASMA HOYT ([id number]) 1970 F Date Time Provider Department 03/12/24 10:15 AM KAMRYN DURAN [facility] During your visit today, we recorded the following information about you: Temperature Pulse Respiration Blood pressure 96.9 degrees 95/minute 20/minute 140/86 Weight 98.7 kg Kamryn Duran PA 03/12/2024 9:49 AM Signed This note was created using Huitongdariter. Subjective Fantasma Hoyt is a 53 year old female. HPI 53-year-old female presents for UTI symptoms. Patient states this morning she started getting burning with urination, urgency and frequency. No abdominal pain, back pain, fevers, vomiting. No vaginal discharge. She has had UTIs in the past and this feels similar. No recent. Not seen any blood in the urine. No other complaint PAST MEDICAL HISTORY Diagnosis Date Acute meniscal tear of left knee 2013 s/p repair DDD (degenerative disc disease), cervical DDD (degenerative disc disease), lumbar [facility] Jonathan Diabetes mellitus type II (HCC) Endometriosis GERD (gastroesophageal reflux disease) Hot flashes Hyperlipidemia Hypertension Labral tear of hip, degenerative left hip, Seeing ortho Obesity Plantar fasciitis of right foot 2013 s/p plantar fasciotomy S/P hysterectomy LSO Seasonal allergies Uterine fibroid s/p hysterectomy PAST SURGICAL HISTORY Procedure Laterality Date COLONOSCOPY [...] SURGICAL HISTORY OF Right 2015 meniscal tear PAST SURGICAL HISTORY OF 11/2022 Dr. Christiansen-Bladder Sling PAST SURGICAL HISTORY OF 08/19/2023 panniculectomy REDUCTION OF LARGE BREAST 07/2022 SCOPE, PLANTAR FASCIOTOMY Right 2013 ALLERGIES Codeine, Contrast Dye, Shellfish Containing Products, Squash, Sulfa Dyne, and Anchor MEDICATIONS glucosamine/msm/chondro it sulf (GLUCOSAMINE [id number] ORAL) cyclobenzaprine (FLEXERIL) 10 mg tablet Take 1 tablet by mouth three times a day as needed for muscle spasm. tirzepatide (MOUNJARO) 15 mg/0.5 mL pen injector Inject 15 mg subcutaneously one time a week. meloxicam (MOBIC) 15 mg tablet Take 1 tablet by mouth once daily. simvastatin (ZOCOR) 10 mg tablet Take 1 tablet by mouth daily at bedtime. EPINEPHrine (EPIPEN) 0.3 mg/0.3 mL auto-injector 1 INJECTION NEEDED IN THIGH pantoprazole DR (PROTONIX) 40 mg tablet Take 1 tablet by mouth once daily. hydroCHLOROthiazide 12.5 mg tablet Take 1 tablet by mouth once daily. metFORMIN (GLUCOPHAGE) 500 mg tablet Take 1 tablet by mouth two times a day with meals. . losartan (COZAAR) 50 mg tablet Take two tablets daily Blood-Glucose Meter (CONTOUR NEXT ONE METER) Check blood sugar twice daily and as needed blood sugar diagnostic (CONTOUR NEXT TEST STRIPS) test strip Check blood sugar twice a day and as needed Cholecalciferol, Vitamin D3, 25 mcg (1,000 unit) [...] D ORAL) Take by mouth twice daily. nitrofurantoin monohydrate and macrocrystal (MACROBID) 100 mg capsule Take 1 capsule by mouth two times a day for 5 days. benzonatate (TESSALON PERLE) 100 mg capsule Take 1 capsule by mouth three times a day as needed for cough. (Patient not taking: Reported on 02/21/2024) FAMILY HISTORY Problem Relation Age of Onset Hypertension Mother Heart Failure Mother 64 Heart Mother stents Hypertension Father Coronary Artery Disease Father 59 [place] in 2009- Thyroid Sister Thyroid Sister Heart Maternal Grandmother Rheumatologic disease Paternal Grandmother arthritis Social History Tobacco Use Smoking status: Former Current packs/day: 0.00 Average packs/day: 0.5 packs/day for 10.0 years (5.0 ttl pk-yrs) Types: Cigarettes Start date: 04/29/2001 Quit date: 04/30/2011 Years since quittin.8 Smokeless tobacco: Never Vaping Use Vaping status: Never Used Substance Use Topics Alcohol use: Not Currently Alcohol/week: 6.0 standard drinks of alcohol Types: 6 Glasses of wine per week Drug use: No Review of Systems Constitutional: Negative for chills and fever. HENT: Negative for congestion, ear pain and sore throat. Respiratory: Negative for cough and shortness of breath. Cardiovascular: Negative for chest pain. (more content not included)... Normal [facility] Bryan 03-12-2024 SERGIO Telephone (UCWSTR) FANTASMA HOYT ([id number]) 1970 F Date Time Provider Department 03/12/24 KAMRYN DURAN [facility] During your visit today, we recorded the following information about you: Chrissie Sidhu RN 03/12/2024 10:21 AM Signed Patient reports she was evaluated by provider CARLOS Rodriguez at [facility] this morning and it was pt's understanding that Pyridium (or other) was going to be sent to her pharmacy along with her Macrobid, to help her bladder spasms. Pt asking if provider can send it to [facility]? She is at pharmacy now. Please call patient back with an update. [phone] MIKAELA Vo Krislyn P, PA 03/12/2024 10:29 AM Signed Sent in. If taking this, do not take Azo oszu-exi-xrbcjts Kallie Guevara MA 03/12/2024 11:02 AM Signed Left detailed message on a secured voicemail. Kallie Guevara MA Allergies As of Date: 03/12/2024 Noted Allergy Reaction CODEINE 10/06/2011 10 - Anaphylaxis CONTRAST DYE 10/06/2011 10 - Anaphylaxis SHELLFISH CONTAINING PRODUCTS 04/29/2016 8 - GI Upset SQUASH 03/13/2018 8 - GI Upset SULFA DYNE 10/06/2011 10 - Anaphylaxis WALNUT 03/13/2018 8 - GI Upset Date Reviewed: 03/12/2024 Reviewed by: Ethel Duke MA - Fully Assessed Reason for Visit: Medication Request [138] Order(s):phenazopyridin e (PYRIDIUM) 200 mg tabletTake 1 tablet by mouth three times a day as needed.Disp: 12 tabletRfl: 0 Prescriptions as of 03/12/2024 - nitrofurantoin monohydrate and macrocrystal (MACROBID) 100 mg capsule Take 1 capsule by mouth two times a day for 5 days. - phenazopyridine (PYRIDIUM) 200 mg tablet Take 1 tablet by mouth three times a day as needed. - glucosamine/msm/chondro it sulf (GLUCOSAMINE [id number] ORAL) - cyclobenzaprine (FLEXERIL) 10 mg tablet Take 1 tablet by mouth three times a day as needed for muscle spasm. - benzonatate (TESSALON PERLE) 100 mg capsule Take 1 capsule by mouth three times a day as needed for cough. - tirzepatide (MOUNJARO) 15 mg/0.5 mL pen injector Inject 15 mg subcutaneously one time a week. - meloxicam (MOBIC) 15 mg tablet Take 1 tablet by mouth once daily. - simvastatin (ZOCOR) 10 mg tablet Take 1 tablet by mouth daily at bedtime. - EPINEPHrine (EPIPEN) 0.3 mg/0.3 mL auto-injector 1 INJECTION NEEDED IN THIGH - pantoprazole DR (PROTONIX) 40 mg tablet Take 1 tablet by mouth once daily. - hydroCHLOROthiazide 12.5 mg tablet Take 1 tablet by mouth once daily. - metFORMIN (GLUCOPHAGE) 500 mg tablet Take 1 tablet by mouth two times a day with meals. . - losartan (COZAAR) 50 mg tablet Take two tablets daily - Blood-Glucose Meter (CONTOUR NEXT ONE METER) Check blood sugar twice daily and as needed - blood sugar diagnostic (CONTOUR NEXT TEST STRIPS) test strip Check blood sugar twice a day and as needed - Cholecalciferol, Vitamin D3, 25 mcg (1,000 unit) cap Take by mouth. - turmeric 400 mg cap Take 1 capsule by mouth once daily. - venlafaxine ER (EFFEXOR XR) 75 mg 24 hr capsule Take 1 capsule by mouth once daily. - Cetirizine 10 mg cap Take by mouth. - Aspirin 81 mg Tab Take 81 mg by mouth once daily. - CALCIUM CARBONATE/VITAMIN D3 (CALTRATE 600 + D ORAL) Take by mouth twice daily. Problem List As Of Date 03/12/2024 Noted Resolved Hypertension [I10] Hyperlipidemia [E78.5] GERD (gastroesophageal reflux disease) [K21.9] Labral tear of hip, degenerative [M24.159] Morbid obesity with BMI of 40.0-44.9, adult (HC* 10/07/2023 Prediabetes [R73.03] 12/27/2018 DDD (degenerative disc disease), cervical [M50.*09/18/2018 Acute back pain with sciatica [M54.40] 09/18/2018 DDD (degenerative disc disease), lumbar [M51.36* Endometriosis [N80.9] Diabetes mellitus type II (HCC) [E11.9] S/P bilateral breast reduction [Z98.890] 08/14/2022 Obesity [E66.9] 10/07/2023 Prescriptions ordered this encounter Disp Refills Start End PHENAZOPYRIDINE 200 MG TABLET 12 t* 0 03/12/2024 Route: ORAL Sig: Take 1 tablet by mouth three times a day as needed. Encounter Status:Closed by KALLIE GUEVARA on 03/12/24 Normal [facility] UA DIP, URINE (POC)on 2024 BILIRUBIN UA (POCT) Negative Negative [facility] CLARITY UA (POCT) Clear [facility] COLOR UA (POCT) Yellow [facility] GLUCOSE UA (POCT) Negative Negative mg/dL [facility] Hemoglobin Ql (U) Moderate Abnormal Negative [facility] Interpretation and review of laboratory results Abnormal [facility] KETONE UA (POCT) Negative Negative mg/dL [facility] LEUKOCYTES UA (POCT) Small Abnormal Negative [facility] NITRITE UA (POCT) Negative Negative [facility] PH UA (POCT) 6.5 4.5 - 8.0 [facility] Protein Ql (U) 30 mg/dL Abnormal Negative [facility] SPECIFIC GRAVITY UA (POCT) >=1.030 1.005 - 1.030 [facility] UROBILINOGEN UA (POCT) 0.2 Viktoriya l E.U./dL [facility] Location:[address], [place], [place], [id number] [place] [address] POINT OF CARE [facility] CNOVon 02-21-2024 CNOV Office Visit (UCWSTR ) FANTASMA HOYT ([id number]) 1970 F Date Time Provider Department 02/21/24 11:15 AM LIS ROTH UCWSTR During your visit today, we recorded the following information about you: Temperature Pulse Respiration Blood pressure 97 degrees 102/minute 18/minute 146/92 Weight 95.5 kg Lis Roth APRN.DEEPALI 02/21/2024 11:28 AM Signed Subjective The history is provided by the patient. No sign language teacher was used. NIMESH Hoyt is a 53 year old female who presents today for CC of mid back pain that started 3 hours ago. She has used meloxicam without relief. BP 146/92 Pulse 102 Temp 36.1 ?C (97 ?F) Resp 18 Wt 95.5 kg (210 lb 8.6 oz) SpO2 100% BMI 32.98 kg/m? Social History Tobacco Use Smoking status: Former Current packs/day: 0.00 Average packs/day: 0.5 packs/day for 10.0 years (5.0 ttl pk-yrs) Types: Cigarettes Start date: 04/29/2001 Quit date: 04/30/2011 Years since quittin.8 Smokeless tobacco: Never Vaping Use Vaping status: Never Used Substance Use Topics Alcohol use: Not Currently Alcohol/week: 6.0 standard drinks of alcohol Types: 6 Glasses of wine per week Drug use: No PAST MEDICAL HISTORY Diagnosis Date Acute meniscal tear of left knee 2013 s/p repair DDD (degenerative disc disease), cervical DDD (degenerative disc disease), lumbar [place] [facility] Castillo Diabetes mellitus type II (HCC) Endometriosis GERD (gastroesophageal reflux disease) Hot flashes Hyperlipidemia Hypertension Labral tear of hip, degenerative left hip, Seeing ortho Obesity Plantar fasciitis of right foot 2013 s/p plantar fasciotomy S/P hysterectomy LSO Seasonal allergies Uterine fibroid s/p hysterectomy I have confirmed and edited as necessary, the [facility] Review of Systems Constitutional: Negative for chills and fever. Musculoskeletal: Positive for back pain. Negative for joint pain and myalgias. Skin: Negative for itching and rash. All other systems reviewed and are negative. Objective Physical Exam Vitals and nursing note reviewed. Pulmonary: Effort: Pulmonary effort is normal. Musculoskeletal: Cervical back: Normal. Thoracic back: Spasms and tenderness present. No swelling, deformity, lacerations or bony tenderness. Normal range of motion. Lumbar back: Normal. Back: Comments: Area of pain along paraspinal Skin: General: Skin is warm and dry. Neurological: Mental Status: She is alert and oriented to person, place, and time. Psychiatric: Mood and Affect: Affect normal. ASSESSMENT/PLAN: 1. Upper back pain - ICD9: 724.5, ICD10: M54.9 Appears to be muscle strain - Ice for localized tenderness - Prednisone burst- see orders - Muscle relaxant- see orders - Patient given instructions use of medications as ordered Diagnosis and treatment plan were discussed and questions were answered to the patient's satisfaction. Pt acknowledged understanding of concepts and follow up plan. Specific signs and symptoms that would indicate the need for higher level of care were discussed in detail warranting prompt ER evaluation. Lis Roth APRN.Lis Garza APRN.CNP 02/21/2024 11:25 AM Signed Flexeril as ordered Ice Tylenol (generic acetaminophen) 500 mg-2 tabs every 8 hrs. as needed for pain * Prednisone 40 mg (2 tablets) per day for 5 days, take in morning or early in day * Do not NSAIDs during this 5 day course (ibuprofen, naproxen, Motrin, Aleve, Advil) Tylenol only during prednisone use * Follow up with primary care provider if no improvement with treatment * Seek medical care immediately, call 911, go to ER if you have chest pain, difficulty breathing, shortness of breath, inability to swallow. Allergies As of Date: 02/21/2024 Noted Allergy Reaction CODEINE 10/06/2011 10 - Anaphylaxis CONTRAST DYE 10/06/2011 10 - Anaphylaxis SHELLFISH CONTAINING PRODUCTS 04/29/2016 8 - GI Upset SQUASH 03/13/2018 8 - GI Upset SULFA DYNE 10/06/2011 10 - Anaphylaxis WALNUT 03/13/2018 8 - GI Upset Date Reviewed: 02/21/2024 Reviewed by: Kallie Guevara MA - Fully Assessed Reason for Visit: Back Pain [12] Cmt: center x 3 hours Primary Visit Diagnosis:Upper back pain [M54.9] Order(s):cyclobenzaprin e (FLEXERIL) 10 mg tabletTake 1 tablet by mouth three times a day as needed for muscle spasm.Disp: 10 tabletRfl: 0 predniSONE (DELTASONE) 20 mg tabletTake 2 tablets by mouth once daily for 5 days.Disp: 10 tabletRfl: 0 Prescriptions as of 02/21/2024 - glucosamine/msm/chondro it sulf (GLUCOSAMINE [id number] ORAL) - cyclobenzaprine (FLEXERIL) 10 mg tablet Take 1 tablet by mouth three times a day as needed for muscle spasm. - predniSONE (DELTASONE) 20 mg tablet Take 2 tablets by mouth once daily for 5 days. - benzonatate (TESSALON PERLE) 100 mg capsule Take 1 capsule by mouth three times a day as needed for co (more content not included)... Normal [facility] 12 Lead EKGon 02-17-2024 12 Lead EKG [facility] [address] [place] [address] 12 Lead EKG 02/17/24 1427 MR#: [id number] Acct: [id number] Name: FANTASMA RHOADES Rep #: [id number] : 1970 53 From: Beny Jameson MD Attending Dr: Status: DEP ER Ordering Dr: Shade Richards DO Date: 02/17/24 Location: ED Sex: F C Admitted: Test Reason : Blood Pressure : */* mmHG Vent. Rate : 75 BPM Atrial Rate : 75 BPM P-R Int : 108 ms QRS Dur : 86 ms QT Int : 368 ms P-R-T Axes : 26 15 46 degrees QTcB Int : 410 ms Sinus rhythm with short AK Otherwise normal ECG Confirmed by FELICITA HARTMANN, BENY ([id number]), commercial production editor JOSELINE HILL ([id number]) on 02/20/2024 6:37:32 AM Referred By: Confirmed By: BENY JAMESON MD 02/20/24 0637 Date Beny Jameson MD CC: Dr. Buddy Hui MD; Dr. Shade Richards DO Signed Normal [facility] Basic Metabolic Profile (BMP )on 02-17-2024 BUN/CRE 43.1 RATIO High 12-17 [facility] Comment on above: Order Comment: 1 Y Performed By: #### L 501.9584, L501.5471, L100.0100, L500.2500 #### [facility] [address] [facility] [place], [address] CA,Total 9.2 mg/dL Normal 8.5-10.1 [facility] Comment on above: Order Comment: 1 Y Performed By: #### L [id number], L501.5425, L100.0100, L500.2500 #### [facility] [address] [place], [address] Chloride [Moles/Vol] 107 mmol/L Normal 98-107 [facility] Comment on above: Order Comment: 1 Y Performed By: #### L [id number], L501.5425, L100.0100, L500.2500 #### [facility] [address] [place], [address] CO2 [Moles/Vol] 27.0 mmol/L Normal 21.0-32.0 [facility] Comment on above: Order Comment: 1 Y Performed By: #### L [id number], L501.5425, L100.0100, L500.2500 #### [facility] [address] [place], [address] Creatinine [Mass/Vol] 0.67 mg/dL Normal 0.55-1.02 [facility] Comment on above: Order Comment: 1 Y Result Comment: The validity of the calculated GFR GFRAA in patients over 70 years has not been determined. Clinical correlation is essential. Performed By: #### L [id number], L501.5425, L100.0100, L500.2500 #### [facility] [address] [place], [address] ECRCL 111.06 ml/min Normal [facility] Comment on above: Order Comment: 1 Y Performed By: #### L [id number], L501.5425, L100.0100, L500.2500 #### [facility] [address] [place], [address] EST GFR - AA 117 mL/min Normal >60 [facility] Comment on above: Order Comment: 1 Y Result Comment: Afri can [place] GFR Calc Performed By: #### L [id number], L501.5425, L100.0100, L500.2500 #### [facility] [address] [place], [address] GAP 6 Normal 5-15 [facility] Comment on above: Order Comment: 1 Y Performed By: #### L [id number], L501.5425, L100.0100, L500.2500 #### [facility] [address] [place], [address] GFR/1.73 sq M.predicted among non-blacks MDRD (S/P/Bld) [Vol rate/Area] 96 mL/min/{1.73_m2} Normal >60 [facility] Comment on above: Order Comment: 1 Y Result Comment: Non- GFR Calc Performed By: #### L 501.9520, L501.5425, L100.0100, L500.2500 #### [facility] [address] [place], [address] Glucose [Mass/Vol] 114 mg/dL High 74-106 [facility] Comment on above: Order Comment: 1 Y Result Comment: Fast ing Glucose result from 100 to 125 mg/dL suggests IMPAIRED HOMEOSTASIS per A.D.A. criteria. Performed By: #### L [id number], L501.5425, L100.0100, L500.2500 #### [facility] [address] [place], [address] Potassium [Moles/Vol] 3.3 mmol/L Low 3.5-5.1 [facility] Comment on above: Order Comment: 1 Y Performed By: #### L [id number], L501.5425, L100.0100, L500.2500 #### [facility] [address] [place], [address] Sodium [Moles/Vol] 139 mmol/L Normal 136-145 [facility] Comment on above: Order Comment: 1 Y Performed By: #### L [id number], L501.5425, L100.0100, L500.2500 #### [facility] [address] [place], [address] Urea nitrogen [Mass/Vol] 29 mg/dL High 7-18 [facility] Comment on above: Order Comment: 1 Y Performed By: #### L [id number], L501.5425, L100.0100, L500.2500 #### [facility] [address] [place], [address] CBC W/Diff, Automatedon 12-2 0-4 Absolute Lymph 1.59 X10 3/uL Normal 0.83-4.51 [facility] Comment on above: Performed By: #### L [id number], L501.5425, L100.0100, L500.2500 #### [facility] [address] [place], [address] Absolute Neut 8.3 X10 3/uL High 2.0-7.7 [facility] Comment on above: Performed By: #### L 501.9520, L501.5425, L100.0100, L500.2500 #### [facility] [address] [place], [address] Basophils/100 WBC (Bld) 0.3 % Normal 0-1 [facility] Comment on above: Performed By: #### L [id number], L501.5425, L100.0100, L500.2500 #### [facility] [address] [place], [address] Eosinophils/100 WBC (Bld) 1.0 % Normal 0-5 [facility] Comment on above: Performed By: #### L [id number], L501.5425, L100.0100, L500.2500 #### [facility] [address] [place], [address] Erythrocyte distribution width (RBC) [Ratio] 13.2 % Normal 11.6-14.6 [facility] Comment on above: Performed By: #### L [id number], L501.5425, L100.0100, L500.2500 #### [facility] [address] [place], [address] Hematocrit (Bld) [Volume fraction] 39.9 % Normal 37-47 [facility] Comment on above: Performed By: #### L [id number], L501.5425, L100.0100, L500.2500 #### [facility] [address] [place], [address] Hemoglobin (Bld) [Mass/Vol] 13.4 g/dL Normal 12.0-15.0 [facility] Comment on above: Performed By: #### L [id number], L501.5425, L100.0100, L500.2500 #### [facility] [address] [place], [address] IG% 0.500 Normal 0.0-0.9 [facility] Comment on above: Result Comment: IG% - Immature Granulocytes (promyelocytes, myelocytes and metamyelocytes) > 1% indicates that a LEFT SHIFT is Present. Performed By: #### L [id number], L501.5425, L100.0100, L500.2500 #### [facility] [address] [place], [address] Lymphocytes/100 WBC (Bld) 14.7 % Low 19-41 [facility] Comment on above: Performed By: #### L [id number], L501.5425, L100.0100, L500.2500 #### [facility] [address] [place], [address] MCH (RBC) [Entitic mass] 30.7 pg Normal 27.0-32.0 [facility] Comment on above: Performed By: #### L [id number], L501.5425, L100.0100, L500.2500 #### [facility] [address] [place], [address] MCHC (RBC) [Mass/Vol] 33.6 g/dL Normal 32-36 [facility] Comment on above: Performed By: #### L [id number], L501.5425, L100.0100, L500.2500 #### [facility] [address] [place], [address] MCV (RBC) [Entitic vol] 91.5 fL Normal 81-99 [facility] Comment on above: Performed By: #### L [id number], L501.5425, L100.0100, L500.2500 #### [facility] [address] [place], [address] Monocytes/100 WBC (Bld) 7.3 % Normal 0-10 [facility] Comment on above: Performed By: #### L [id number], L501.5425, L100.0100, L500.2500 #### [facility] [address] [place], [address] Neutrophils/100 WBC (Bld) 76.2 % High 47-70 [facility] Comment on above: Performed By: #### L [id number], L501.5425, L100.0100, L500.2500 #### [facility] [address] [place], [address] Nucleated RBC (Bld) [#/Vol] 0 10*3/uL Normal 0-5 [facility] Comment on above: Performed By: #### L 501.9520, L501.5425, L100.0100, L500.2500 #### [facility] [address] [place], [address] Platelet mean volume (Bld) [Entitic vol] 9.8 fL Normal 6.2-12.0 [facility] Comment on above: Performed By: #### L 501.9520, L501.5425, L100.0100, L500.2500 #### [facility] [address] [place], [address] Platelets (Bld) [#/Vol] 418 10*3/uL Normal 150-450 [facility] Comment on above: Performed By: #### L 501.9520, L501.5425, L100.0100, L500.2500 #### [facility] [address] [place], [address] RBC (Bld) [#/Vol] 4.36 10*6/uL Normal 4.2-5.4 [facility] Comment on above: Performed By: #### L 501.9520, L501.5425, L100.0100, L500.2500 #### [facility] [address] [place], [address] RDW SD 44.2 fl High 35.1-43.9 [facility] Comment on above: Performed By: #### L 501.9520, L501.5425, L100.0100, L500.2500 #### [facility] [address] [place], [address] WBC (Bld) [#/Vol] 10.8 10*3/uL Normal 4.4-11.0 [facility] Comment on above: Performed By: #### L 501.9520, L501.5425, L100.0100, L500.2500 #### [facility] [address] [place], [address] Chest PA and Lateralon 02-16 Chest PA and Lateral [facility] Services [address] [place] [address] Chest PA and Lateral MR#: [id number] Acct: [id number] Name: FANTASMA RHOADES Rep #: [id number] : 1970 F 53 From: Jordy Hopkins MD PCP: Dr. Buddy Hui MD Status: REG ER Study: Chest PA and Lateral Date of Exam: 02/17/24 Exam# [id number] Ordering Dr: [place] [id number] EXAM: XR CHEST, 2 VIEWS CLINICAL INDICATION: chest pain TECHNIQUE: Frontal and lateral views of the chest. COMPARISON: XR Chest dated 05/11/2021 FINDINGS: LUNGS AND PLEURAL SPACES: Normal. No consolidation or edema. No pneumothorax. No effusion. HEART: Normal heart size. MEDIASTINUM: No mediastinal or hilar mass. BONES/JOINTS: No acute abnormality. RAD/Chest PA and Lateral IMPRESSION: No acute cardiopulmonary abnormality. No interval change. Electronically Signed: Jordy Hopkins MD at 14:55 EST , CC: Dr. Buddy Hui MD; Dr. Shade Richards DO [employer] Worker: Signed Normal [facility] Emergency Department Summary on 02-17-2024 Emergency Department Summary [facility] Medical Records Department [address] [place] [id number] Emergency Department Summary 02/17/24 MR#: [id number] Acct: [id number] Name: FANTASMA RHOADES Rep #: [id number] : 1970 53 From: Shade Richards DO PCP: Dr. Buddy Hui MD Status:REG ER Location: ED HPI History of Present Illness Chief Complaint: General Illness Narrative Narrative: Patient is a 53-year-old female with a past medical history of diabetes, hypercholesteremia, GERD, hypertension, hyperlipidemia who presented to the emergency department with a chief complaint of hot flashes, intermittent heart racing, nausea. She states that on February 07 she had a steroid injection in her hip and notes that approximately 2 days after this is when all her symptoms started. She states that she called her doctor today and they advised her to come to the emergency department further evaluation management. Patient states that she is constantly hot and sweating. She noted that other family members have history of thyroid issues and was also concerned about this. Patient denies any history of blood clots denies any travel history. [facility] Medical History JENNIFFER (stress urinary incontinence, female) Wears glasses Alcohol use Diabetes Bladder disease High cholesterol Back pain Dietary restriction Gastric reflux Former smoker History of echocardiogram History of stress test Endometriosis Hyperlipidemia Hypertension Home Medications ???Medication ???Instructions ???Recorded ???Last Taken ???Type aspirin 81 mg chewable tablet 81 mg PO DAILY@0800 06/05/13 12/15/22 History cholecalciferol (vitamin D3) 25 1,000 unit PO DAILY 06/05/13 Unknown History mcg (1,000 unit) capsule calcium carbonate 300 mg PO BID 02/20/16 Unknown History glucosamine sulfate 250 1 ea PO BID 02/20/16 Unknown History mg-chondroitin sulfate A 200 mg capsule pantoprazole 40 mg tablet,delayed 40 mg PO DAILY 02/20/16 12/23/22 History release cetirizine 10 mg capsule 10 mg PO DAILY PRN Allergies 10/22/18 Unknown History meloxicam 15 mg tablet 15 mg PO DAILY 12/21/22 12/15/22 History venlafaxine 75 mg capsule,extended 75 mg PO QHS 12/21/22 Unknown History release 24 hr epinephrine 0.3 mg/0.3 mL 0.3 mg IM Q4H 03/28/23 Unknown History injection, auto-injector hydrochlorothiazide 12.5 mg tablet 12.5 mg PO DAILY 03/28/23 Unknown History losartan 50 mg tablet 50 mg PO BID 03/28/23 Unknown History metformin 500 mg tablet 500 mg PO BID 03/28/23 Unknown History simvastatin 10 mg tablet 10 mg PO DAILY 03/28/23 Unknown History tirzepatide 12.5 mg/0.5 mL 15 mg subcut QWEEK 09/12/23 Unknown History subcutaneous pen injector (Mounjaro) Allergy/AdvReac Type Severity Reaction Status Date / Time codeine Allergy Anaphylaxis Verified 02/17/24 13:59 Iodinated Contrast Media (iv Allergy Anaphylaxis Verified 02/17/24 13:59 contrast dye) shellfish derived Allergy Nausea/Vom/ Verified 02/17/24 13:59 Diarrhea Sulfa (Sulfonamide Allergy Anaphylaxis Verified 02/17/24 13:59 Antibiotics) pineapple (Pineapple) AdvReac Nausea/Vom/ Verified 02/17/24 13:59 Diarrhea squash AdvReac Nausea/Vom/ Verified 02/17/24 13:59 Diarrhea walnut AdvReac Nausea/Vom/ Verified 02/17/24 13:59 Diarrhea Family History Father Myocardial infarction Hypertension Mother Heart disease Hypertension Grandmother Heart disease Hypertension Surgical History S/P panniculectomy Hx of breast reduction, elective Hx of arthroscopy of right knee Labral tear of left hip joint History of lateral meniscus repair of left knee H/O laparoscopy H/O: hysterectomy Plantar fascia syndrome Social History Smoking Status: Former smoker alcohol intake: current details: social substance use type: does not use caffeine: Yes frequency: 3-4 times per week seatbelt use: always do you feel safe at home: Yes additional social history: seperated ROS ROS ED ROS Narrative Constitutional: Complains of hot flashes denies any dizziness headaches Eyes: Denies changes vision double vision blurry vision Cardiovascular: Denies chest pain or palpitations Respiratory: Denies coughing wheezing shortness of breath Abdomen: Complains of nausea denies abdominal pain vomiting diarrhea : Denies any urinary symptoms Neurological: Denies any numbness, weakness, tingling Musculoskeletal: Denies back pain Skin: Denies any rashes or lesions EXAM Physical Exam Narrative Exam Narrative: General: Patient was lying in bed rest comfortably did not appear to be in acute distress (more content not included)... Normal [facility] L501.4020on 02-17-2024 TROPONIN-I HS 3 pg/mL Normal 3.0-54.0 [facility] Comment on above: Result Comment: Josefina victoria Note: New Test Units and Gender Specific Reference Ranges. For more information see Policy Stat Procedure [place] High Sensitivity Troponin (TNIH) and attachments. Performed By: #### L 501.4020 #### [facility] [address] [place], [address] L501.5425on 02-17-2024 TROPONIN-I HS 3 pg/mL Normal 3.0-54.0 [facility] Comment on above: Order Comment: 1 Y Result Comment: Josefina victoria Note: New Test Units and Gender Specific Reference Ranges. For more information see Policy Stat Procedure [place] High Sensitivity Troponin (TNIH) and attachments. Performed By: #### L 501.9520, L501.5425, L100.0100, L500.2500 #### [facility] [address] [place], [address] Thyroid Stim Hormone (TSH)on 02-17-2024 TSH 0.914 uIU/mL Normal 0.358-3.740 [facility] Comment on above: Order Comment: 1 Y Performed By: #### L 501.9520, L501.5425, L100.0100, L500.2500 #### [facility] [address] [place], [address] CNOVon 01-30-2024 CNOV Office Visit (UCWSTR ) FANTASMA HOYT ([id number]) 1970 F Date Time Provider Department 01/30/24 12:30 PM WILLIAN ANDREW WS During your visit today, we recorded the following information about you: Temperature Pulse Respiration Blood pressure 97.5 degrees 78/minute 18/minute 152/98 Weight 99.2 kg Willian Andrew, NOZZLEMAN.[employer]LE [employer]SEMBLER 01/30/2024 12:25 PM Signed Treatment for Viral Upper Respiratory Tract Infections Your body will kill off the virus by itself. Additionally, you can prime your body's immune system. This may help you get better more quickly. Drink lots of fluids - at least one gallon of non-caffeinated liquids per day Make sure you are eating well Get plenty of rest - at least 8 hours of sleep per night for adults and more for children We do not have any medications that kill off these viruses. Antibiotics are used to treat bacterial infections; however, they are not active against viral infections. There are some things that might help you feel better, though. Vaporizers, humidifiers, hot showers, and hot fluids help open respiratory and sinus passages Sudafed is a safe and effective decongestant [place] Nasal [place] may offer relief of nasal and head congestion Tramaine's Vapor Rub placed on a hot towel and draped over the head may relieve congestion Tylenol and Advil help control fevers and headaches Salt water gargles help relieve sore throats Chloraceptic spray or throat lozenges may also help relieve sore throat symptoms Robitussin DM will help loosen up secretions and also provide relief from a cough Occasionally, viral infections turn into something more serious. You should see your doctor or return to the Urgent Care if: You have fevers for longer than five days You have fevers above 102 degrees You are still sick after 10 days You have shortness of breath or wheezing After several days you are getting worse rather than better Willian Andrew APRN.[employer]SEMBLER 01/30/2024 1:43 PM Signed Patient presents with: Sore Throat: ST, left ear pain and PEDRO x 1 day SUBJECTIVE: Fantasma Hoyt is a 53 year old year old female who presents for the past 1 day with symptoms that are:constant. Scratchy throat, sneezing, coughing yesterday Today awoke with sore throat, headache, left ear pain Risk factors: none Social History Tobacco Use Smoking status: Former Current packs/day: 0.00 Average packs/day: 0.5 packs/day for 10.0 years (5.0 ttl pk-yrs) Types: Cigarettes Start date: 04/29/2001 Quit date: 04/30/2011 Years since quittin.7 Smokeless tobacco: Never Vaping Use Vaping status: Never Used Substance Use Topics Alcohol use: Not Currently Alcohol/week: 6.0 standard drinks of alcohol Types: 6 Glasses of wine per week Drug use: No PAST MEDICAL HISTORY Diagnosis Date Acute meniscal tear of left knee 2013 s/p repair DDD (degenerative disc disease), cervical DDD (degenerative disc disease), lumbar [place] [facility]-Dr Jonathan Diabetes mellitus type II (HCC) Endometriosis GERD (gastroesophageal reflux disease) Hot flashes Hyperlipidemia Hypertension Labral tear of hip, degenerative left hip, Seeing ortho Obesity Plantar fasciitis of right foot 2013 s/p plantar fasciotomy S/P hysterectomy LSO Seasonal allergies Uterine fibroid s/p hysterectomy 01/30/24 1209 BP: 152/98 Pulse: 78 Resp: 18 Temp: 36.4 ?C (97.5 ?F) TempSrc: Tympanic SpO2: 98% Weight: 99.2 kg (218 lb 11.1 oz) ALLERGIES Allergen Reactions Codeine Anaphylaxis Contrast Dye Anaphylaxis Shellfish Containin* GI Upset Squash GI Upset Sulfa Dyne Anaphylaxis Anchor GI Upset Medications: tirzepatide (MOUNJARO) 15 mg/0.5 mL pen injector Inject 15 mg subcutaneously one time a week. meloxicam (MOBIC) 15 mg tablet Take 1 tablet by mouth once daily. simvastatin (ZOCOR) 10 mg tablet Take 1 tablet by mouth daily at bedtime. EPINEPHrine (EPIPEN) 0.3 mg/0.3 mL auto-injector 1 INJECTION NEEDED IN THIGH pantoprazole DR (PROTONIX) 40 mg tablet Take 1 tablet by mouth once daily. hydroCHLOROthiazide 12.5 mg tablet Take 1 tablet by mouth once daily. metFORMIN (GLUCOPHAGE) 500 mg tablet Take 1 tablet by mouth two times a day with meals. . losartan (COZAAR) 50 mg tablet Take two tablets daily Blood-Glucose Meter (CONTOUR NEXT ONE METER) Check blood sugar twice daily and as needed blood sugar diagnostic (CONTOUR NEXT TEST STRIPS) test strip Check blood sugar twice a day and as needed Cholecalciferol, Vitamin D3, 25 mcg (1,000 unit) [...] D ORAL) Take by mouth twice daily. benzonatate (CHAN (more content not included)... Normal [facility] STREP A MOLECULAR (POC)on Procedural Control Valid [facility] Strep A (POCT) Negative Negative [facility] CNOVon 10-07-2023 CNOV Office Visit (FAMPWS ) FANTASMA RHOADES ([id number]) 1970 F Date Time Provider Department 10/07/23 9:00 AM ANTONIO HUI FAMPWS During your visit today, we recorded the following information about you: Pulse Respiration Blood pressure Weight 92/minute 16/minute 118/76 96.3 kg Antonio Hui MD 10/08/2023 8:02 AM Signed Chief Complaint Patient presents with: Physical HPI Fantasma Rhoades is a 53 year old female who presents here today for Above Complaints. DIABETES MELLITUS: Ms. Rhoades was last seen 8 months ago. Since our last visit she [...] day schedule with sugars in the fasting 90-100 range. Patient's last HgA1C was Hemoglobin A1C (%) Date Value 11/09/2022 5.3 02/04/2022 5.3 01/31/2021 5.6 08/18/2020 5.8 ) Last Ophthalmology exam was within the past 12 months. No retinopathy. Last Podiatry exam was more than 12 months ago Needs refill on meloxicam for her DDD. Working well on current dosage. Takes with food. HTN: Ms. Rhoades indicates that she is feeling well and denies any symptoms referable to elevated blood pressure. Specifically denies headache, chest pain, palpitations, dyspnea, and peripheral edema. Patient denies any side effects of her medication(s) and is compliant with their regimen. She does not check BP's generally. Fantasma likes to exercise by walking. She watches her diet for sodium, low fat and low cholesterol most of the time. Last 3 Encounter BP Readings: Date: BP: 10/07/2023 118/76 08/09/2023 135/89 02/14/2023 132/84 GERD: controlled with Protonix daily. Patient down about 90 lbs since 07/2021 with Mounjaro and exercise. States that she would like to get down to 175 lbs ultimately. Had panniculectomy in July and is healing well without infection concerns. Past medical history, appointments, medications, allergies reviewed. Previous Medical History PAST MEDICAL HISTORY 2014: Acute meniscal tear of left knee Comment: s/p repair No date: DDD (degenerative disc disease), cervical No date: DDD (degenerative disc disease), lumbar Comment: [place] [facility]-Dr Castillo No date: Diabetes mellitus type II ([facility]) No date: Endometriosis No date: GERD (gastroesophageal reflux disease) No date: Hot flashes No date: Hyperlipidemia No date: Hypertension No date: Labral tear of hip, degenerative Comment: left hip, Seeing ortho No date: Morbid obesity with BMI of 40.0-44.9, adult ([facility]) 2014: Plantar fasciitis of right foot Comment: s/p plantar fasciotomy No date: Seasonal allergies No date: Uterine fibroid Comment: s/p hysterectomy Previous Surgical History PAST SURGICAL HISTORY 09/22/2021: COLONOSCOPY Comment: repeat in 10 years No date: HYSTERECTOMY HX Comment: total robotic hysterectomy, LSO 2014: KNEE ARTHROSCOPY; Left Comment: meniscal tear No date: LAPS ABD PRTMANDOMENTUM DX W/WO SPEC BR/WA SPX Comment: Laparoscopy for endometriosis 02/12/2021: PAST SURGICAL HISTORY OF; Left Comment: Left hip scope with lbral repaire aceabuloplasty debridemtn of ossified labrum chondropslasty synovectomy femoroplasty and ligamentum teres debridement with capsular closure 2016: PAST SURGICAL HISTORY OF; Right Comment: meniscal tear 11/2022: PAST SURGICAL HISTORY OF Comment: Dr. Christiansen-Bladder Sling 07/2022: REDUCTION OF LARGE BREAST 2014: SCOPE, PLANTAR FASCIOTOMY; Right Family History FAMILY HISTORY Problem Relation Age of Onset Hypertension Mother Heart Failure Mother 64 Heart Mother stents Hypertension Father Coronary Artery Disease Father 59 [place] in 2010- LDa Thyroid Sister Thyroid Sister Heart Maternal Grandmother Rheumatologic disease Paternal Grandmother arthritis Patient Allergies ALLERGIES Allergen Reactions Codeine Anaphylaxis Contrast Dye Anaphylaxis Shellfish Containin* GI Upset Squash GI Upset Sulfa Dyne Anaphylaxis Anchor GI Upset Current Medications Current Outpatient Medications on File Prior to Visit Medication Sig tirzepatide (MOUNJARO) 15 mg/0.5 mL pen injector Inject 15 mg subcutaneously one time a week. meloxicam (MOBIC) 15 mg tablet Take 1 tablet by mouth once daily. EPINEPHrine (EPIPEN) 0.3 mg/0.3 mL auto-injector 1 INJECTION NEEDED IN THIGH pantoprazole DR (PROTONIX) 40 mg tablet Take 1 tablet by mouth once daily. hydroCHLOROthiazide 12.5 mg tablet Take 1 tablet by mouth once daily. metFORMIN (GLUCOPHAGE) 500 mg tablet Take 1 tablet by mouth two times a day with meals. . losartan (COZAAR) 50 mg tablet Take two tablets gini (more content not included)... Normal [facility] Comprehensive metabolic 2000 panelon 10-07-2023 Albumin [Mass/Vol] 4.4 g/dL 3.9 - 4.9 g/dL [facility] ALP [Catalytic activity/Vol] 81 U/L 34 - 123 U/L [facility] ALT [Catalytic activity/Vol] 15 U/L 7 - 38 U/L [facility] Anion gap [Moles/Vol] 10 mmol/L 8 - 15 mmol/L [facility] AST [Catalytic activity/Vol] 16 U/L 13 - 35 U/L [facility] Bilirubin [Mass/Vol] 0.2 mg/dL 0.2 - 1 .3 mg/dL [facility] Calcium [Mass/Vol] 9.5 mg/dL 8.5 - 10. 2 mg/dL [facility] Chloride [Moles/Vol] 104 mmol/L 98 - 10 7 mmol/L [facility] CO2 [Moles/Vol] 27 mmol/L 22 - 30 mmol/L [facility] Creatinine [Mass/Vol] 0.60 mg/dL 0.58 - 0.96 mg/dL [facility] GFR/1.73 sq M.predicted among non-blacks MDRD (S/P/Bld) [Vol rate/Area] 106 mL/min/{1.73_m2} - PINF [facility] Comment on above: Estimated Glomerular Filtration Rate (eGFR) is calculated using the 2020 CKD-EPI creatinine equation. This equation utilizes serum creatinine, sex, and age as parameters. The creatinine assay has traceable calibration to isotope dilution-mass spectrometry. Refer to KDIGO guidelines for clinical interpretation. In patients with unstable renal function, e.g. those with acute kidney injury, the eGFR may not accurately reflect actual GFR. Glucose [Mass/Vol] 95 mg/dL 74 - 99 mg/dL [facility] Comment on above: The [place] Diabete s Association (ADA) provides guidance for cutoff values for fasting glucose and random glucose. The ADA defines fasting as no caloric intake for at least 8 hours. Fasting plasma glucose results between 100 to 125 mg/dL indicate increased risk for diabetes (prediabetes). Fasting plasma glucose results greater than or equal to 126 mg/dL meet the criteria for diagnosis of diabetes. In the absence of unequivocal hyperglycemia, results should be confirmed by repeat testing. In a patient with classic symptoms of hyperglycemia or hyperglycemic crisis, random plasma glucose results greater than or equal to 200 mg/dL meet the criteria for diagnosis of diabetes. Reference: Standards of Medical Care in Diabetes 2016, [place] Diabetes Association. Diabetes Care. 2016.39(Suppl 1). Interpretation and review of laboratory results Normal [facility] Potassium [Moles/Vol] 4.6 mmol/L 3.7 - 5.1 mmol/L [facility] Protein [Mass/Vol] 7.0 g/dL 6.3 - 8.0 g/dL [facility] Sodium [Moles/Vol] 141 mmol/L 136 - 144 mmol/L [facility] Urea nitrogen [Mass/Vol] 11 mg/dL 7 - 21 mg/dL [facility] Albumin [Mass/Vol] 4.4 g/dL Normal 3.9-4.9 [facility] Comment on above: Order Comment: Speci men Type: BLOOD SPECIMENOrdering Facility: [facility] Address: [address] [place] [address] [place] [address] Performed By: #### 2 4323-8 ####[facility] LABCLIA [id number] [place] [address] [place] ALP [Catalytic activity/Vol] 81 U/L Normal 34-123 [facility] Comment on above: Order Comment: Speci men Type: BLOOD SPECIMENOrdering Facility: [facility] Address: [address] [place] [address] Performed By: #### 2 4323-8 ####[facility] LABCLIA [id number] [place] [address] [place] ALT [Catalytic activity/Vol] 15 U/L Normal 7-38 [facility] Comment on above: Order Comment: Speci men Type: BLOOD SPECIMENOrdering Facility: [facility] Address: [address] [place] [address] Performed By: #### 2 4323-8 ####[facility] LABCLIA [id number] [place] [address] [place] Anion gap [Moles/Vol] 10 mmol/L Normal 8-15 [facility] Comment on above: Order Comment: Speci men Type: BLOOD SPECIMENOrdering Facility: [facility] Address: [address] [place] [address] Performed By: #### 2 4323-8 ####[facility] LABCLIA [id number] [place] [address] [place] AST [Catalytic activity/Vol] 16 U/L Normal 13-35 [facility] Comment on above: Order Comment: Speci men Type: BLOOD SPECIMENOrdering Facility: [facility] Address: [address] [place] [address] Performed By: #### 2 4323-8 ####[facility] LABCLIA [id number] [place] [address] [place] Bilirubin [Mass/Vol] 0.2 mg/dL Normal 0.2-1.3 [facility] Comment on above: Order Comment: Speci men Type: BLOOD SPECIMENOrdering Facility: [facility] Address: [address] [place] [address], [place] [address] Performed By: #### 2 4323-8 ####[facility] LABCLIA [id number] [address] [address] [place] Calcium [Mass/Vol] 9.5 mg/dL Normal 8.5-10.2 [facility] Comment on above: Order Comment: Speci men Type: BLOOD SPECIMENOrdering Facility: [facility] Address: [address] [place], [place] [id number] Performed By: #### 2 4323-8 ####[facility] LABCLIA [id number] [place] [address] [place] Chloride [Moles/Vol] 104 mmol/L Normal 98-107 [facility] Comment on above: Order Comment: Speci men Type: BLOOD SPECIMENOrdering Facility: [facility] Address: [address] [place], [place] [id number] Performed By: #### 2 4323-8 ####[facility] LABCLIA [id number] [place] [address] [place] CO2 [Moles/Vol] 27 mmol/L Normal 22-30 [facility] Comment on above: Order Comment: Speci men Type: BLOOD SPECIMENOrdering Facility: [facility] Address: [address] [place] [address] Performed By: #### 2 4323-8 ####[facility] LABCLIA [id number] [address] [address] [place] Creatinine [Mass/Vol] 0.60 mg/dL Normal 0.58-0.96 [facility] Comment on above: Order Comment: Speci men Type: BLOOD SPECIMENOrdering Facility: [facility] Address: [address] [place], [place] [id number] Performed By: #### 2 4323-8 ####[facility] LABCLIA [id number] [id number] [address] [place] Creatinine and Glomerular filtration rate.predicted panel (S/P/Bld) 106 mL/min/1.73m??? Normal >=60 [facility] Comment on above: Order Comment: Patsy israel Type: BLOOD SPECIMENOrdering Facility: [facility] Address: [address] [place], [place] [address] Result Comment: Miracle mated Glomerular Filtration Rate (eGFR) is calculated using the 2020 CKD-EPI creatinine equation. This equation utilizes serum creatinine, sex, and age as parameters. The creatinine assay has traceable calibration to isotope dilution-mass spectrometry. Refer to KDIGO guidelines for clinical interpretation. In patients with unstable renal function, e.g. those with acute kidney injury, the eGFR may not accurately reflect actual GFR. Performed By: #### 2 4323-8 ####[facility] LABCLIA [id number] [place] [address] [place] Glucose [Mass/Vol] 95 mg/dL Normal 74-99 [facility] Comment on above: Order Comment: Patsy israel Type: BLOOD SPECIMENOrdering Facility: [facility] Address: [address] [place] [address] Result Comment: The [place] Diabetes Association (ADA) provides guidance for cutoff values for fasting glucose and random glucose. The ADA defines fasting as no caloric intake for at least 8 hours. Fasting plasma glucose results between 100 to 125 mg/dL indicate increased risk for diabetes (prediabetes). Fasting plasma glucose results greater than or equal to 126 mg/dL meet the criteria for diagnosis of diabetes. In the absence of unequivocal hyperglycemia, results should be confirmed by repeat testing. In a patient with classic symptoms of hyperglycemia or hyperglycemic crisis, random plasma glucose results greater than or equal to 200 mg/dL meet the criteria for diagnosis of diabetes. Reference: Standards of Medical Care in Diabetes 2016, [place] Diabetes Association. Diabetes Care. 2016.39(Suppl 1). Performed By: #### 2 4323-8 ####[facility] LABIA [id number] [place] [address] [place] Potassium [Moles/Vol] 4.6 mmol/L Normal 3.7-5.1 [facility] Comment on above: Order Comment: Speci men Type: BLOOD SPECIMENOrdering Facility: [facility] Address: [address] [place] [address] Performed By: #### 2 4323-8 ####[facility] LABCLIA [id number] [place] [id number] [place] Protein [Mass/Vol] 7.0 g/dL Normal 6.3-8.0 [facility] Comment on above: Order Comment: Speci men Type: BLOOD SPECIMENOrdering Facility: [facility] Address: [address] [place] [address] Performed By: #### 2 4323-8 ####[facility] LABCLIA [id number] [place] [address] [place] Sodium [Moles/Vol] 141 mmol/L Normal 136-144 [facility] Comment on above: Order Comment: Speci men Type: BLOOD SPECIMENOrdering Facility: [facility] Address: [address] [place] [address] Performed By: #### 2 4323-8 ####[facility] LABCLIA [id number] [place] [address] [place] Urea nitrogen [Mass/Vol] 11 mg/dL Normal 7-21 [facility] Comment on above: Order Comment: Speci men Type: BLOOD SPECIMENOrdering Facility: [facility] Address: [address] [place] [address] Performed By: #### 2 4323-8 ####[facility] LABCLIA [id number] [place] [id number] [place] HbA1c (Bld)on 10-07-2023 Average glucose Estimated from glycated hemoglobin (Bld) [Mass/Vol] 94 mg/dL [facility] Comment on above: eAG: (Estimated aver age glucose) is a calculated value from HgbA1c and is national sales representative of the average blood glucose level in the last 2-3 month period. HbA1c (Bld) [Mass fraction] 4.9 % 4.3 - 5.6 % [facility] Comment on above: [place] Diabetes As sociation guidelines indicate that patients with HgbA1c in the range 5.7-6.4% are at increased risk for development of diabetes, and intervention by lifestyle modification may be beneficial. HgbA1c greater or equal to 6.5% is considered diagnostic of diabetes. [facility] Average glucose Estimated from glycated hemoglobin (Bld) [Mass/Vol] 94 mg/dL Normal [facility] Comment on above: Order Comment: Speci men Type: BLOOD SPECIMENOrdering Facility: [facility] Address: [address] [place] [address] Result Comment: eAG: (Estimated average glucose) is a calculated value from HgbA1c and is national sales representative of the average blood glucose level in the last 2-3 month period. Performed By: #### 5 5454-3 ####[facility] LABIA [id number] [place] [address] [place] HbA1c (Bld) [Mass fraction] 4.9 % Normal 4.3-5.6 [facility] Comment on above: Order Comment: Patsy israel Type: BLOOD SPECIMENOrdering Facility: [facility] Address: [address] [place] [address] Result Comment: [place] Diabetes Association guidelines indicate that patients with HgbA1c in the range 5.7-6.4% are at increased risk for development of diabetes, and intervention by lifestyle modification may be beneficial. HgbA1c greater or equal to 6.5% is considered diagnostic of diabetes. Performed By: #### 5 5454-3 ####[facility] LABCLIA [id number] [place] [address] [place] STREP A MOLECULAR (POC)on Procedural Control Valid [facility] Strep A (POCT) Negative Negative [facility] Absolute lymphocyte countOrd ered By: Richie Lai on 03-28-2023 Lymphocytes Auto (Unsp spec) [#/Vol] 1.53 10*3/uL 0.83-4.51 [facility] Automated lymphocyte count a s percentage of total leukocytesOrdered By: Richie Lai on 03-28-2023 Lymphocytes/100 WBC Auto (Unsp spec) 27.3 % 19-41 [facility] Basophil percentageOrdered B y: Richie Abelino on 03-28-2023 Basophils/100 WBC (Bld) 0.5 % 0-1 [facility] Bilirubin [Mass/Vol] 0.40 mg/dL 0.20-1.00 [facility] Comment on above: For patients on eltr ombopag therapy, use of Dimension [place] TBIL is not recommended. Chloride [Moles/Vol] 107 mmol/L 98-107 [facility] Eosinophils/100 WBC (Bld) 2.3 % 0-5 [facility] Glucose [Mass/Vol] 101 mg/dL 74-106 [facility] Comment on above: Fasting Glucose resu lt from 100 to 125 mg/dL suggests IMPAIRED HOMEOSTASIS per A.D.A. criteria. Hemoglobin (Bld) [Mass/Vol] 13.5 g/dL 12.0-15.0 [facility] Monocytes/100 WBC (Bld) 8.7 % 0-10 [facility] Neutrophils (Bld) [#/Vol] 3.4 10*3/uL 2.0-7.7 [facility] Neutrophils/100 WBC (Bld) 61.0 % 47-70 [facility] Potassium [Moles/Vol] 3.9 mmol/L 3.5-5.1 [facility] Protein [Mass/Vol] 7.3 g/dL 6.4-8.2 [facility] Sodium [Moles/Vol] 138 mmol/L 136-145 [facility] WBC (Bld) [#/Vol] 5.6 10*3/uL 4.4-11.0 [facility] Determination of erythrocyte mean corpuscular volume (MCV)Ordered By: Richie Lai on 03-28-2023 MCV (RBC) [Entitic vol] 90.3 fL 81-99 [facility] Erythrocyte distribution wid th ratioOrdered By: Richie Lai on 03-28-2023 Erythrocyte distribution width (RBC) [Ratio] 12.5 % 11.6-14.6 [facility] Erythrocyte distribution wid th standard deviationOrdered By: Richie Lai on 03-28-2023 Erythrocyte distribution width (RBC) [Entitic vol] 41.6 fL 35.1-43.9 [facility] Hematocrit Auto (Bld) [Volum e fraction]Ordered By: Richie Lai on 03-28-2023 Hematocrit (Bld) [Volume fraction] 39.1 % 37-47 [facility] Immature granulocytes/100 WB C Auto (Bld)Ordered By: Richie Lai on 03-28-2023 Immature granulocytes/100 WBC (Bld) 0.200 % 0.0-0.9 [facility] Comment on above: IG% - Immature Granu locytes (promyelocytes, myelocytes and metamyelocytes) > 1% indicates that a LEFT SHIFT is Present. Laboratory - Chemistry and C hemistry - challengeOrdered By: Richie Lai on 03-28-2023 Albumin/Globulin [Mass ratio] 1.2 {ratio} 0.9-2.4 [facility] ALP [Catalytic activity/Vol] 70 U/L 45-117 [facility] ALT [Catalytic activity/Vol] 19 U/L 13-56 [facility] CO2 [Moles/Vol] 27.0 mmol/L 21.0-32.0 [facility] Globulin (S) [Mass/Vol] 3.3 g/dL 2.2-4.2 [facility] Lipase [Catalytic activity/Vol] 47 U/L 13-75 [facility] Comment on above: Please note:LIPASE r evised reference range effective 22. New Lipase methodology. Expected to produce lower values than the previous assay method. NEW Reference Range: 13 - 75 U/L Urea nitrogen/Creatinine [Mass ratio] 21.9 mg/mg 10-20 [facility] Laboratory - Hematology and Cell countsOrdered By: Richie Lai on 03-28-2023 MCH (RBC) [Entitic mass] 31.2 pg 27.0-32.0 [facility] MCHC (RBC) [Mass/Vol] 34.5 g/dL 32-36 [facility] Nucleated RBC/100 WBC (Bld) [Ratio] 0 % 0-5 [facility] Platelets (Bld) [#/Vol] 283 10*3/uL 150-450 [facility] No Panel InformationOrdered By: Richie Lai on 03-28-2023 Estimated Creatinine Clearance Calc 124.27 ml/min [facility] Estimated GFR (MDRD) Amer 124 mL/min >60 [facility] Comment on above: GFR Calc Estimated GFR (MDRD) Non-Af Amer 103 mL/min >60 [facility] Comment on above: Non- GFR Calc Platelet mean volume Panfilo-Ec ker (Bld) [Entitic vol]Ordered By: Richie Lai on 03-28-2023 Platelet mean volume (Bld) [Entitic vol] 10.1 fL 6.2-12.0 [facility] RBC Auto (Bld) [#/Vol]Ordere d By: Richie Lai on 03-28-2023 RBC (Bld) [#/Vol] 4.33 10*6/uL 4.2-5.4 [facility] Serum or plasma calcium henny urement (mass/volume)Ordered By: Richie Lai on 03-28-2023 Calcium [Mass/Vol] 9.6 mg/dL 8.5-10.1 [facility] Serum or plasma creatinine m easurement (mass/volume)Ordered By: Richie Lai on 03-28-2023 Creatinine [Mass/Vol] 0.64 mg/dL 0.55-1.02 [facility] Comment on above: The validity of the calculated GFR & GFRAA in patients over 70 years has not been determined. Clinical correlation is essential. Serum or plasma urea nitroge n measurement (mass/volume)Ordered By: Richie Lai on 03-28-2023 Urea nitrogen [Mass/Vol] 14 mg/dL 7-18 [facility] Thin prep Papanicolaou smear with manual screeningOrdered By: Richie Lai on 03-28-2023 Thin prep Papanicolaou smear with manual screening 4.0 g/dL 3.2-5.0 [facility] Thin prep Papanicolaou smear with manual screening 12 U/L 15-37 [facility] Thin prep Papanicolaou smear with manual screening 4 5-15 [facility] Basophil percentageOrdered B y: Phillip Perez on 12-23-2022 Chloride [Moles/Vol] 108 mmol/L 98-107 [facility] Glucose [Mass/Vol] 101 mg/dL 74-106 [facility] Comment on above: Fasting Glucose resu lt from 100 to 125 mg/dL suggests IMPAIRED HOMEOSTASIS per A.D.A. criteria. Potassium [Moles/Vol] 4.0 mmol/L 3.5-5.1 [facility] Sodium [Moles/Vol] 138 mmol/L 136-145 [facility] WBC (Bld) [#/Vol] 6.1 10*3/uL 4.4-11.0 [facility] Blood erythrocytes count (nu mber/volume)Ordered By: Phillip Perez on 12-23-2022 RBC (Bld) [#/Vol] 4.29 10*6/uL 4.2-5.4 [facility] Blood hemoglobin measurement (mass/volume)Ordered By: Phillip Perez on 12-23-2022 Hemoglobin (Bld) [Mass/Vol] 12.8 g/dL 12.0-15.0 [facility] Blood platelet mean volumeOr dered By: Phillip Perez on 12-23-2022 Platelet mean volume (Bld) [Entitic vol] 10.7 fL 6.2-12.0 [facility] Determination of erythrocyte mean corpuscular volume (MCV)Ordered By: Phillip Perez on 12-23-2022 MCV (RBC) [Entitic vol] 89.0 fL 81-99 [facility] Glucose Glucometer (BldC) [M ass/Vol]Ordered By: Leisa Christiansen on 12-23-2022 Glucose [Mass/Vol] 88 mg/dL 74-106 [facility] Comment on above: MANAGEMENT OF PATIEN T CARE PER NURSING PROTOCOL Hematocrit Auto (Bld) [Volum e fraction]Ordered By: Phillip Perez on 12-23-2022 Hematocrit (Bld) [Volume fraction] 38.2 % 37-47 [facility] Laboratory - Chemistry and C hemistry - challengeOrdered By: Phillip Perez on 12-23-2022 CO2 [Moles/Vol] 25.0 mmol/L 21.0-32.0 [facility] Urea nitrogen/Creatinine [Mass ratio] 24.4 mg/mg 10-20 [facility] Laboratory - Hematology and Cell countsOrdered By: Phillip Perez on 12-23-2022 Erythrocyte distribution width (RBC) [Entitic vol] 42.6 fL 35.1-43.9 [facility] Erythrocyte distribution width (RBC) [Ratio] 13.0 % 11.6-14.6 [facility] MCH (RBC) [Entitic mass] 29.8 pg 27.0-32.0 [facility] MCHC Auto (RBC) [Mass/Vol]Or dered By: Phillip Perez on 12-23-2022 MCHC (RBC) [Mass/Vol] 33.5 g/dL 32-36 [facility] No Panel InformationOrdered By: Phillip Perez on 12-23-2022 Estimated Creatinine Clearance Calc 106.35 ml/min [facility] Estimated GFR (MDRD) Amer 130 mL/min >60 [facility] Comment on above: GFR Calc Estimated GFR (MDRD) Non-Af Amer 108 mL/min >60 [facility] Comment on above: Non- GFR Calc Platelets bldOrdered By: Mary Perez on 12-23-2022 Platelets (Bld) [#/Vol] 292 10*3/uL 150-450 [facility] Serum or plasma calcium henny urement (mass/volume)Ordered By: Phillip Perez on 12-23-2022 Calcium [Mass/Vol] 8.8 mg/dL 8.5-10.1 [facility] Serum or plasma creatinine m easurement (mass/volume)Ordered By: Phillip Perez on 12-23-2022 Creatinine [Mass/Vol] 0.61 mg/dL 0.55-1.02 [facility] Comment on above: The validity of the calculated GFR & GFRAA in patients over 70 years has not been determined. Clinical correlation is essential. Serum or plasma urea nitroge n measurement (mass/volume)Ordered By: Phillip Perez on 12-23-2022 Urea nitrogen [Mass/Vol] 15 mg/dL 7-18 [facility] Thin prep Papanicolaou smear with manual screeningOrdered By: Phillip Perez on 12-23-2022 Thin prep Papanicolaou smear with manual screening 5 5-15 [facility] Whole blood hemoglobin A1c/t otal hemoglobin ratio (mass fraction)Ordered By: Phillip Perez on 12-23-2022 HbA1c (Bld) [Mass fraction] 5.0 % 3.8-5.6 [facility] Comment on above: Normal < 5.7 % Predi abetic 5.7 - 6.4 % Diabetic >or= 6.5 % Please note range changes. DXA-AXIAL SKELETONon 023 [facility] GLUCOSE, BLOOD (POC)on 09-22 Glucose [Mass/Vol] 145 mg/dL Abnormal 74 - 99 mg/dL [facility] MRI Cervical Spine w/oon MRI Cervical Spine w/o Submitted clinica l information: Neck pain, numbness and tingling down the left arm. Study Technique: MRI cervical spine was performed in axial and sagittal T1 and T2 weighted images. Sagittal STIR imaging was also acquired. Comparisons: Findings: ____ Vertebral body height: No compression deformities. Vertebral body loss of height is noted. Disc height and Disc signal: Disc space narrowing and disc desiccation is seen. Cord signal: No abnormal signal changes are demonstrated. Alignment: Straightening of normal cervical lordosis may represent muscle spasm versus strain. Grade I anterolisthesis of C3 over C4. Grade I retrolisthesis of C5 over C6. Bone marrow signal: No abnormal signal detected Craniovertebral junction: No evidence of a Chiari malformation. Paraspinal soft tissues: No abnormal inflammation or lesion detected Axial Imaging: C2-3: Posterior disc bulge is seen indenting the ventral thecal sac. Facet articulations are intact. The neural foramina are patent. No evidence of canal stenosis at this level. C3-4: 2.2 mm broad based posterior protrusion is seen indenting the ventral thecal sac and bilateral lateral recess causing mild central canal and bilateral neural foramina stenosis. Facet arthropathy is seen. C4-5: Posterior disc bulge is seen indenting the ventral thecal sac. Facet articulations are intact. The neural foramina are patent. No evidence of canal stenosis at this level. C5-6: 3.5 mm broad based posterior protrusion with acute annular tear is seen indenting the ventral thecal sac and bilateral lateral recess causing severe central canal and moderate bilateral neural foramina stenosis. There is high T2 signal in posterior high signal intensity zone. Facet arthropathy is seen. C6-7: 3.1 mm broad based posterior protrusion with acute annular tear is seen indenting the ventral thecal sac and bilateral lateral recess causing moderate central canal and bilateral neural foramina stenosis. There is high T2 signal in posterior high signal intensity zone. Facet arthropathy is seen. C7-T1: Posterior disc bulge is seen indenting the ventral thecal sac. Facet articulations are intact. The neural foramina are patent. No evidence of canal stenosis at this level. ____ Final Impressions: 1. 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 2. Posterior broad based herniation with acute annular tear at C5-6 causing severe central canal and moderate bilateral neural foramina stenosis. 3. Posterior broad based herniation with acute annular tear C6-7 causing moderate central canal and bilateral neural foramina stenosis. 4. Posterior disc bulge at C2-3, C4-5 and C7-T1 indenting the ventral thecal sac. 5. Multilevel facet arthropathy and uncovertebral joint disease. 0006 Normal [facility] Specialist Absolute lymphocyte counton 06-27-2021 Lymphocytes Auto (Unsp spec) [#/Vol] 1.55 10*3/uL 0.83-4.51 [facility] Work Phone: [phone] Basophil percentageon 2021 Basophils/100 WBC (Bld) 0.4 % 0-1 [facility] Work Phone: [phone] Chloride [Moles/Vol] 105 mmol/L 98-107 [facility] Work Phone: [phone] Eosinophils/100 WBC (Bld) 1.3 % 0-5 [facility] Work Phone: [phone] Glucose [Mass/Vol] 116 mg/dL 74-106 [facility] Work Phone: Comment on above: Fasting Glucose resu lt from 100 to 125 mg/dL suggests IMPAIRED HOMEOSTASIS per A.D.A. criteria. Neutrophils (Bld) [#/Vol] 5.0 10*3/uL 2.0-7.7 [facility] Work Phone: Neutrophils/100 WBC (Bld) 69.6 % 47-70 [facility] Work Phone: Potassium [Moles/Vol] 3.8 mmol/L 3.5-5.1 [facility] Work Phone: Sodium [Moles/Vol] 139 mmol/L 136-145 [facility] Work Phone: WBC (Bld) [#/Vol] 7.2 10*3/uL 4.4-11.0 [facility] Work Phone: Blood erythrocytes count (nu mber/volume)on 06-27-2021 RBC (Bld) [#/Vol] 3.76 10*6/uL 4.2-5.4 [facility] Work Phone: Blood hemoglobin measurement (mass/volume)on 06-27-2021 Hemoglobin (Bld) [Mass/Vol] 11.7 g/dL 12.0-15.0 [facility] Work Phone: Blood lymphocytes/100 leukoc yteson 06-27-2021 Lymphocytes/100 WBC (Bld) 21.6 % 19-41 [facility] Work Phone: Blood monocytes/100 leukocyt eson 06-27-2021 Monocytes/100 WBC (Bld) 6.7 % 0-10 [facility] Work Phone: Blood platelet mean volumeon 06-27-2021 Platelet mean volume (Bld) [Entitic vol] 10.3 fL 6.2-12.0 [facility] Work Phone: Determination of erythrocyte mean corpuscular volume (MCV)on 06-27-2021 MCV (RBC) [Entitic vol] 96.3 fL 81-99 [facility] Work Phone: Hematocrit Auto (Bld) [Volum e fraction]on 06-27-2021 Hematocrit (Bld) [Volume fraction] 36.2 % 37-47 [facility] Work Phone: Laboratory - Chemistry and C hemistry - challengeon 06-27-2021 CO2 [Moles/Vol] 31.0 mmol/L 21.0-32.0 [facility] Work Phone: Urea nitrogen/Creatinine [Mass ratio] 16.5 mg/mg 10-20 [facility] Work Phone: Laboratory - Hematology and Cell countson 06-27-2021 Erythrocyte distribution width (RBC) [Entitic vol] 47.1 fL 35.1-43.9 [facility] Work Phone: Erythrocyte distribution width (RBC) [Ratio] 13.3 % 11.6-14.6 [facility] Work Phone: Immature granulocytes/100 WBC (Bld) 0.400 % 0.0-0.9 [facility] Work Phone: Comment on above: IG% - Immature Granu locytes (promyelocytes, myelocytes and metamyelocytes) > 1% indicates that a LEFT SHIFT is Present. MCH (RBC) [Entitic mass] 31.1 pg 27.0-32.0 [facility] Work Phone: Nucleated RBC/100 WBC (Bld) [Ratio] 0 % 0-5 [facility] Work Phone: MCHC Auto (RBC) [Mass/Vol]on 06-27-2021 MCHC (RBC) [Mass/Vol] 32.3 g/dL 32-36 [facility] Work Phone: No Panel Informationon 06-27 Estimated Creatinine Clearance Calc 77.21 ml/min [facility] Work Phone: Estimated GFR (MDRD) Amer 90 mL/min >60 [facility] Work Phone: Comment on above: GFR Calc Estimated GFR (MDRD) Non-Af Amer 74 mL/min >60 [facility] Work Phone: Comment on above: Non- GFR Calc Platelets bldon 06-27-2021 Platelets (Bld) [#/Vol] 249 10*3/uL 150-450 [facility] Work Phone: Serum or plasma calcium henny urement (mass/volume)on 06-27-2021 Calcium [Mass/Vol] 9.1 mg/dL 8.5-10.1 [facility] Work Phone: Serum or plasma creatinine m easurement (mass/volume)on 06-27-2021 Creatinine [Mass/Vol] 0.85 mg/dL 0.55-1.02 [facility] Work Phone: Comment on above: The validity of the calculated GFR & GFRAA in patients over 70 years has not been determined. Clinical correlation is essential. Serum or plasma urea nitroge n measurement (mass/volume)on 06-27-2021 Urea nitrogen [Mass/Vol] 14 mg/dL 7-18 [facility] Work Phone: Thin prep Papanicolaou smear with manual screeningon 06-27-2021 Thin prep Papanicolaou smear with manual screening 3 5-15 [facility] Work Phone: Absolute lymphocyte counton 05-11-2021 Lymphocytes Auto (Unsp spec) [#/Vol] 2.03 10*3/uL 0.83-4.51 [facility] Work Phone: Basophil percentageon 2021 Basophil percentage 0 SEEN /hpf [facility] Work Phone: Basophils/100 WBC (Bld) 0.4 % 0-1 [facility] Work Phone: Bilirubin [Mass/Vol] 0.20 mg/dL 0.20-1.00 [facility] Work Phone: Comment on above: For patients on eltr ombopag therapy, use of Dimension [place] TBIL is not recommended. Chloride [Moles/Vol] 106 mmol/L 98-107 [facility] Work Phone: [phone] Eosinophils/100 WBC (Bld) 1.8 % 0-5 [facility] Work Phone: Glucose [Mass/Vol] 128 mg/dL 74-106 [facility] Work Phone: Comment on above: Fasting Glucose resu lt greater than or equal to 126 mg/dL suggests DIABETES MELLITUS per A.D.A. criteria. Neutrophils (Bld) [#/Vol] 5.0 10*3/uL 2.0-7.7 [facility] Work Phone: Neutrophils/100 WBC (Bld) 64.7 % 47-70 [facility] Work Phone: Potassium [Moles/Vol] 3.7 mmol/L 3.5-5.1 [facility] Work Phone: Protein [Mass/Vol] 7.0 g/dL 6.4-8.2 [facility] Work Phone: Sodium [Moles/Vol] 139 mmol/L 136-145 [facility] Work Phone: WBC (Bld) [#/Vol] 7.8 10*3/uL 4.4-11.0 [facility] Work Phone: Bilirubin Test strip Ql (U)o n 05-11-2021 Bilirubin Ql (U) Negative Negative [facility] Work Phone: Blood erythrocytes count (nu mber/volume)on 05-11-2021 RBC (Bld) [#/Vol] 4.18 10*6/uL 4.2-5.4 [facility] Work Phone: Blood hemoglobin measurement (mass/volume)on 05-11-2021 Hemoglobin (Bld) [Mass/Vol] 13.0 g/dL 12.0-15.0 [facility] Work Phone: [phone] Blood lymphocytes/100 leukoc yteson 05-11-2021 Lymphocytes/100 WBC (Bld) 26.1 % 19-41 [facility] Work Phone: Blood monocytes/100 leukocyt eson 05-11-2021 Monocytes/100 WBC (Bld) 6.9 % 0-10 [facility] Work Phone: Blood platelet mean volumeon 05-11-2021 Platelet mean volume (Bld) [Entitic vol] 10.7 fL 6.2-12.0 [facility] Work Phone: Determination of erythrocyte mean corpuscular volume (MCV)on 05-11-2021 MCV (RBC) [Entitic vol] 91.1 fL 81-99 [facility] Work Phone: Hematocrit Auto (Bld) [Volum e fraction]on 05-11-2021 Hematocrit (Bld) [Volume fraction] 38.1 % 37-47 [facility] Work Phone: Ketones Test strip Ql (U)on 05-11-2021 Ketones Ql (U) Negative Negative [facility] Work Phone: Laboratory - Chemistry and C hemistry - challengeon 05-11-2021 ALP [Catalytic activity/Vol] 109 U/L 45-117 [facility] Work Phone: ALT [Catalytic activity/Vol] 30 U/L 13-56 [facility] Work Phone: CO2 [Moles/Vol] 27.0 mmol/L 21.0-32.0 [facility] Work Phone: Globulin (S) [Mass/Vol] 3.3 g/dL 2.2-4.2 [facility] Work Phone: Lipase [Catalytic activity/Vol] 116 U/L 73-393 [facility] Work Phone: Urea nitrogen/Creatinine [Mass ratio] 18.1 mg/mg 10-20 [facility] Work Phone: Laboratory - Hematology and Cell countson 05-11-2021 Erythrocyte distribution width (RBC) [Entitic vol] 41.6 fL 35.1-43.9 [facility] Work Phone: Erythrocyte distribution width (RBC) [Ratio] 12.6 % 11.6-14.6 [facility] Work Phone: Immature granulocytes/100 WBC (Bld) 0.100 % 0.0-0.9 [facility] Work Phone: Comment on above: IG% - Immature Granu locytes (promyelocytes, myelocytes and metamyelocytes) > 1% indicates that a LEFT SHIFT is Present. MCH (RBC) [Entitic mass] 31.1 pg 27.0-32.0 [facility] Work Phone: Nucleated RBC/100 WBC (Bld) [Ratio] 0 % 0-5 [facility] Work Phone: MCHC Auto (RBC) [Mass/Vol]on 05-11-2021 MCHC (RBC) [Mass/Vol] 34.1 g/dL 32-36 [facility] Work Phone: Mucus LM Ql (Urine sed)on Mucus Ql (Urine sed) 0 SEEN /hpf [facility] Work Phone: Nitrite Test strip Ql (U)on 05-11-2021 Nitrite Ql (U) Negative Negative [facility] Work Phone: No Panel Informationon 05-11 D-Dimer Quantitative (PE/DVT) < 0.27 FEU/ug/m 0.27-0.49 [facility] Work Phone: Comment on above: NORMAL D-Dimer level (<0.50) indicates no DVT or PE. Estimated Creatinine Clearance Calc 96.96 ml/min [facility] Work Phone: Estimated GFR (MDRD) Amer 120 mL/min >60 [facility] Work Phone: Comment on above: GFR Calc Estimated GFR (MDRD) Non-Af Amer 99 mL/min >60 [facility] Work Phone: Comment on above: Non- GFR Calc Platelets bldon 05-11-2021 Platelets (Bld) [#/Vol] 268 10*3/uL 150-450 [facility] Work Phone: Protein Test strip Ql (U)on 05-11-2021 Protein Ql (U) Negative Negative [facility] Work Phone: Serum or plasma albumin henny urement (mass/volume)on 05-11-2021 Albumin [Mass/Vol] 3.7 g/dL 3.2-5.0 [facility] Work Phone: Serum or plasma albumin/glob ulin mass ratioon 05-11-2021 Albumin/Globulin [Mass ratio] 1.1 {ratio} 0.9-2.4 [facility] Work Phone: Serum or plasma calcium henny urement (mass/volume)on 05-11-2021 Calcium [Mass/Vol] 9.2 mg/dL 8.5-10.1 [facility] Work Phone: Serum or plasma creatinine m easurement (mass/volume)on 05-11-2021 Creatinine [Mass/Vol] 0.66 mg/dL 0.55-1.02 [facility] Work Phone: Comment on above: The validity of the calculated GFR & GFRAA in patients over 70 years has not been determined. Clinical correlation is essential. Serum or plasma urea nitroge n measurement (mass/volume)on 05-11-2021 Urea nitrogen [Mass/Vol] 12 mg/dL 7-18 [facility] Work Phone: Squamous epithelial cells de tection in urine sediment by light microscopyon 05-11-2021 Epithelial cells.squamous LM Ql (Urine sed) 0-5 SEEN /hpf [facility] Work Phone: Thin prep Papanicolaou smear with manual screeningon 05-11-2021 Thin prep Papanicolaou smear with manual screening 14 U/L 15-37 [facility] Work Phone: Thin prep Papanicolaou smear with manual screening 6 5-15 [facility] Work Phone: Urine blood detectionon 04-28 RBC Ql (U) Negative Negative [facility] Work Phone: RBC Ql (U) 0 SEEN /hpf [facility] Work Phone: Urine clarityon 05-11-2021 Clarity (U) Clear Clear [facility] Work Phone: Urine color determinationon 05-11-2021 Color (U) Yellow Yellow [facility] Work Phone: Urine glucose detectionon Glucose Ql (U) Normal mg/dl Normal [facility] Work Phone: Urine leukocyte esterase det ection by dipstickon 05-11-2021 Leukocyte esterase Test strip Ql (U) Negative Negative [facility] Work Phone: Urine pHon 05-11-2021 pH (U) 6.0 [pH] [facility] Work Phone: Urine sediment bacteria coun t by microscopy (number/high power field)on 05-11-2021 Bacteria LM.HPF (Urine sed) [#/Area] 0 /[HPF] None Seen [facility] Work Phone: Urine specific gravity measu rementon 05-11-2021 Specific gravity (U) [Rel density] 1.015 [facility] Work Phone: Urobilinogen Auto test strip Ql (U)on 05-11-2021 Urobilinogen Ql (U) Normal mg/dl Normal [facility] Work Phone: Vital Signs Date Time Vital Sign Value Performing Clinician Faci lity 09-18-2024 14:32-0400 Body height 170.[address] Buddy Hui MD Work Phone: [facility] 09-18-2024 14:28-0400 Body mass index (BMI) [Ratio] 34.2 kg/m2 Dr. Buddy Hui MD Work Phone: [facility] 09-18-2024 14:28-0400 Body weight 99.[address] Buddy Hui MD Work Phone: [facility] 09-18-2024 14:28-0400 Diastolic blood pressure 84 mm[Hg] Dr. Buddy Hui MD Work Phone: [facility] 09-18-2024 14:28-0400 Systolic blood pressure 136 mm[Hg] Dr. Buddy Hui MD Work Phone: [facility] 09-05-2024 08:39-0400 Body mass index (BMI) [Ratio] 33.8 kg/m2 Sofy Dean MD, PhD Work Phone: [facility] 09-05-2024 08:39-0400 Body weight 97.9 kg Sofy Dean MD, PhD Work Phone: [facility] 09-05-2024 08:39-0400 Diastolic blood pressure 87 mm[Hg] Sofy Dean MD, PhD Work Phone: [facility] 09-05-2024 08:39-0400 Heart rate 88 /min Sofy Dean MD, PhD Work Phone: [facility] 09-05-2024 08:39-0400 Respiratory rate 16 /min Sofy Dean MD, PhD Work Phone: [facility] 09-05-2024 08:39-0400 SaO2% (BldA) [Mass fraction] 98 % Sofy Dean MD, PhD Work Phone: [facility] 09-05-2024 08:39-0400 Systolic blood pressure 135 mm[Hg] Sofy Dean MD, PhD Work Phone: [facility] 08-06-2024 09:38-0400 Body temperature 97.9 [degF] Dr. Buddy Hui MD Work Phone: 9(909)536-301408 [place] [address] 08-06-2024 09:38-0400 Diastolic blood pressure 97 mm[Hg] Dr. Buddy Hui MD Work Phone: 5(980)080-381808 [place] [address] 08-06-2024 09:38-0400 Heart rate 79 /min Dr. Buddy Hui MD Work Phone: 5(149)273-121908 [place] [address] 08-06-2024 09:38-0400 Respiratory rate 16 /min Dr. Buddy Hui MD Work Phone: 1(723)014-369608 [place] [address] 08-06-2024 09:38-0400 SaO2% (BldA) [Mass fraction] 99 % Dr. Buddy Hui MD Work Phone: 0(622)138-242108 [place] [address] 08-06-2024 09:38-0400 Systolic blood pressure 161 mm[Hg] Dr. Buddy Hui MD Work Phone: 9(348)420-674008 [place] [address] 08-06-2024 08:24-0400 Body height 170.[address] Buddy Hui MD Work Phone: 0(109)677-292108 [place] [address] 08-06-2024 08:24-0400 Body mass index (BMI) [Ratio] 32.4 kg/m2 Dr. Buddy Hui MD Work Phone: 8(435)332-697908 [place] [address] 08-06-2024 08:24-0400 Body weight 93.[address] Buddy Hui MD Work Phone: 3(053)645-663208 [place] [address] 04-30-2024 14:36-0500 Body mass index (BMI) [Ratio] 34.55 kg/m2 Karla Ocampo [employer] Work Phone: 3(587)157-046439 [place] [address] 04-30-2024 14:36-0500 Body weight 100.06 kg Karla Ocampo APRN.[employer] Work Phone: 3(687)392-128039 [place] [address] 04-30-2024 14:36-0500 Diastolic blood pressure 82 mm[Hg] Krala Podlogar [employer] Work Phone: [facility] 04-30-2024 14:36-0500 Heart rate 81 /min Karla Podlogar [employer] Work Phone: [facility] 04-30-2024 14:36-0500 Respiratory rate 18 /min Karla Podlogar [employer] Work Phone: [facility] 04-30-2024 14:36-0500 SaO2% (BldA) [Mass fraction] 96 % Karla Podlogar [employer] Work Phone: [facility] 04-30-2024 14:36-0500 Systolic blood pressure 134 mm[Hg] Karla Podlogar [employer] Work Phone: [facility] 04-11-2024 14:25-0500 Body mass index (BMI) [Ratio] 33.99 kg/m2 Karla Podlogar [employer] Work Phone: [facility] 04-11-2024 14:25-0500 Body temperature 97.11 [degF] Karla Podlogar [employer] Work Phone: [facility] 04-11-2024 14:25-0500 Body weight 98.43 kg Karla Podlogar [employer] Work Phone: [facility] 04-11-2024 14:25-0500 Diastolic blood pressure 82 mm[Hg] Karla Podlogar [employer] Work Phone: [facility] 04-11-2024 14:25-0500 Heart rate 76 /min Karla Podlogar [employer] Work Phone: [facility] 04-11-2024 14:25-0500 Respiratory rate 16 /min Karla Podlogar [employer] Work Phone: [facility] 04-11-2024 14:25-0500 Systolic blood pressure 126 mm[Hg] Karla Podlogar [employer] Work Phone: [facility] 04-02-2024 09:57-0500 Body mass index (BMI) [Ratio] 33.83 kg/m2 Antonio Hui MD Work Phone: [facility] 04-02-2024 09:57-0500 Body weight 97.98 kg Antonio Hui MD Work Phone: [facility] 04-02-2024 09:57-0500 Diastolic blood pressure 82 mm[Hg] Antonio Hui MD Work Phone: [facility] 04-02-2024 09:57-0500 Heart rate 98 /min Antonio Hui MD Work Phone: [facility] 04-02-2024 09:57-0500 Respiratory rate 16 /min Antonio Hui MD Work Phone: [facility] 04-02-2024 09:57-0500 SaO2% (BldA) [Mass fraction] 94 % Antonio Hui MD Work Phone: [facility] 04-02-2024 09:57-0500 Systolic blood pressure 136 mm[Hg] Antonio Hui MD Work Phone: [facility] 03-12-2024 09:43-0500 Body mass index (BMI) [Ratio] 34.08 kg/m2 Krislyn Aberegg PA Work Phone: [facility] 03-12-2024 09:43-0500 Body temperature 96.91 [degF] Krislyn Aberegg PA Work Phone: [facility] 03-12-2024 09:43-0500 Body weight 98.7 kg Krislyn Aberegg PA Work Phone: [facility] 03-12-2024 09:43-0500 Diastolic blood pressure 86 mm[Hg] Krislyn Aberegg PA Work Phone: [facility] 03-12-2024 09:43-0500 Heart rate 95 /min Krislyn Aberegg PA Work Phone: [facility] 03-12-2024 09:43-0500 Respiratory rate 20 /min Krislyn Aberegg PA Work Phone: [facility] 03-12-2024 09:43-0500 SaO2% (BldA) [Mass fraction] 97 % Krislyn Aberegg PA Work Phone: [facility] 03-12-2024 09:43-0500 Systolic blood pressure 140 mm[Hg] Krislyn Aberegg PA Work Phone: [facility] 02-21-2024 10:54-0500 Body mass index (BMI) [Ratio] 32.98 kg/m2 Lis Roth [employer] Work Phone: [facility] 02-21-2024 10:54-0500 Body temperature 97 [degF] Lis Roth [employer] Work Phone: [facility] 02-21-2024 10:54-0500 Body weight 95.5 kg Lis Roth [employer] Work Phone: [facility] 02-21-2024 10:54-0500 Diastolic blood pressure 92 mm[Hg] Lis Roth [employer] Work Phone: [facility] 02-21-2024 10:54-0500 Heart rate 102 /min Lis Roth APRN.[employer] Work Phone: [facility] 02-21-2024 10:54-0500 Respiratory rate 18 /min Lis Roth APRN.[employer] Work Phone: [facility] 02-21-2024 10:54-0500 SaO2% (BldA) [Mass fraction] 100 % Lis Roth [employer] Work Phone: [facility] 02-21-2024 10:54-0500 Systolic blood pressure 146 mm[Hg] Lis Roth APRN.[employer] Work Phone: [facility] 01-30-2024 12:09-0500 Body mass index (BMI) [Ratio] 34.25 kg/m2 Willian Andrew [employer] Work Phone: [facility] 01-30-2024 12:09-0500 Body temperature 97.5 [degF] Willian Indorf [employer] Work Phone: [facility] 01-30-2024 12:09-0500 Body weight 99.2 kg Willian Indorf [employer] Work Phone: [facility] 01-30-2024 12:09-0500 Diastolic blood pressure 98 mm[Hg] Willian Indorf [employer] Work Phone: [facility] 01-30-2024 12:09-0500 Heart rate 78 /min Willian Indorf [employer] Work Phone: [facility] 01-30-2024 12:09-0500 Respiratory rate 18 /min Willian Indorf [employer] Work Phone: [facility] 01-30-2024 12:09-0500 SaO2% (BldA) [Mass fraction] 98 % Willian Indorf [employer] Work Phone: [facility] 01-30-2024 12:09-0500 Systolic blood pressure 152 mm[Hg] Willian Indorf [employer] Work Phone: [facility] 10-07-2023 08:43-0400 Body mass index (BMI) [Ratio] 33.25 kg/m2 Antonio Hui MD Work Phone: [facility] 10-07-2023 08:43-0400 Body weight 96.3 kg Antonio Hui MD Work Phone: [facility] 10-07-2023 08:43-0400 Diastolic blood pressure 76 mm[Hg] Antonio Hui MD Work Phone: [facility] 10-07-2023 08:43-0400 Heart rate 92 /min Antonio Hui MD Work Phone: [facility] 10-07-2023 08:43-0400 Respiratory rate 16 /min Antonio Hui MD Work Phone: [facility] 10-07-2023 08:43-0400 SaO2% (BldA) [Mass fraction] 98 % Antonio Hui MD Work Phone: [facility] 10-07-2023 08:43-0400 Systolic blood pressure 118 mm[Hg] Antonio Hui MD Work Phone: [facility] 08-09-2023 08:34-0400 Body mass index (BMI) [Ratio] 34.87 kg/m2 Krislyn Aberegg PA Work Phone: [facility] 08-09-2023 08:34-0400 Body temperature 97 [degF] Krislyn Aberegg PA Work Phone: [facility] 08-09-2023 08:34-0400 Body weight 101 kg Krislyn Aberegg PA Work Phone: [facility] 08-09-2023 08:34-0400 Diastolic blood pressure 89 mm[Hg] Krislyn Aberegg PA Work Phone: [facility] 08-09-2023 08:34-0400 Heart rate 85 /min Krislyn Aberegg PA Work Phone: [facility] 08-09-2023 08:34-0400 Respiratory rate 20 /min Krislyn Aberegg PA Work Phone: [facility] 08-09-2023 08:34-0400 SaO2% (BldA) [Mass fraction] 99 % Krislyn Aberegg PA Work Phone: [facility] 08-09-2023 08:34-0400 Systolic blood pressure 135 mm[Hg] Krislyn Aberegg PA Work Phone: [facility] 03-28-2023 11:34-0500 Diastolic blood pressure 99 mm[Hg] [facility] 03-28-2023 11:34-0500 Heart rate 66 /min [facility] 03-28-2023 11:34-0500 Respiratory rate 16 /min [facility] 03-28-2023 11:34-0500 SaO2% (BldA) [Mass fraction] 100 % [facility] 03-28-2023 11:34-0500 Systolic blood pressure 158 mm[Hg] [facility] 03-28-2023 09:43-0500 Body height 170.18 cm [facility] 03-28-2023 09:43-0500 Body mass index (BMI) [Ratio] 35.7 kg/m2 [facility] 03-28-2023 09:43-0500 Body temperature 97.7 [degF] [facility] 03-28-2023 09:43-0500 Body weight 103.44 kg [facility] 12-23-2022 11:37-0400 Body temperature 98 [degF] [facility] 12-23-2022 11:37-0400 Diastolic blood pressure 72 mm[Hg] [facility] 12-23-2022 11:37-0400 Heart rate 80 /min [facility] 12-23-2022 11:37-0400 Respiratory rate 16 /min [facility] 12-23-2022 11:37-0400 SaO2% (BldA) [Mass fraction] 97 % [facility] 12-23-2022 11:37-0400 Systolic blood pressure 124 mm[Hg] [facility] 12-23-2022 07:31-0400 Body height 172.72 cm [facility] 12-23-2022 07:31-0400 Body mass index (BMI) [Ratio] 33.8 kg/m2 [facility] 12-23-2022 07:31-0400 Body weight 101 kg [facility] 09-05-2022 16:51-0400 Body height 172.[address] Buddy Hui Work Phone: [facility] 09-05-2022 16:51-0400 Body mass index (BMI) [Ratio] 34.2 kg/m2 Dr. Buddy Hui Work Phone: [facility] 09-05-2022 16:51-0400 Body temperature 97.8 [degF] Dr. Buddy Hui Work Phone: [facility] 09-05-2022 16:51-0400 Body weight 102.[address] Buddy Hui Work Phone: [facility] 09-05-2022 16:51-0400 Diastolic blood pressure 76 mm[Hg] Dr. Buddy Hui Work Phone: 8(147)106-626953 [place] [address] 09-05-2022 16:51-0400 Heart rate 64 /min Dr. Buddy Hui Work Phone: 4(575)966-645908 [place] [address] 09-05-2022 16:51-0400 Respiratory rate 14 /min Dr. Buddy Hui Work Phone: 7(723)321-188808 [place] [address] 09-05-2022 16:51-0400 SaO2% (BldA) [Mass fraction] 98 % Dr. Buddy Hui Work Phone: 9(069)683-698253 [place] [address] 09-05-2022 16:51-0400 Systolic blood pressure 134 mm[Hg] Dr. Buddy Hui Work Phone: [facility] 08-12-2022 16:23-0400 Body weight 105.96 kg Antonio Hui MD Work Phone: [facility] 08-12-2022 16:23-0400 Diastolic blood pressure 70 mm[Hg] Antonio Hui MD Work Phone: [facility] 08-12-2022 16:23-0400 Heart rate 83 /min Antonio Hui MD Work Phone: [facility] 08-12-2022 16:23-0400 Respiratory rate 16 /min Antonio Hui MD Work Phone: [facility] 08-12-2022 16:23-0400 SaO2% (BldA) [Mass fraction] 96 % Antonio Hui MD Work Phone: [facility] 08-12-2022 16:23-0400 Systolic blood pressure 124 mm[Hg] Antonio Hui MD Work Phone: [facility] 07-13-2022 12:54-0400 Body mass index (BMI) [Ratio] 36.1 kg/m2 Dr. Buddy Hui Work Phone: [facility] 07-13-2022 12:54-0400 Body weight 107.[address] Buddy Hui Work Phone: [facility] 07-13-2022 12:54-0400 Diastolic blood pressure 82 mm[Hg] Dr. Buddy Hui Work Phone: [facility] 07-13-2022 12:54-0400 Systolic blood pressure 142 mm[Hg] Dr. Buddy Hui Work Phone: [facility] 09-22-2021 12:30-0400 Diastolic blood pressure 99 mm[Hg] Jennifer Nelson MD Work Phone: [facility] 09-22-2021 12:30-0400 Heart rate 74 /min Jennifer Nelson MD Work Phone: [facility] 09-22-2021 12:30-0400 Respiratory rate 18 /min Jennifer Nelson MD Work Phone: [facility] 09-22-2021 12:30-0400 SaO2% (BldA) [Mass fraction] 99 % Jennifer Nelson MD Work Phone: [facility] 09-22-2021 12:30-0400 Systolic blood pressure 139 mm[Hg] Jennifer Nelson MD Work Phone: [facility] 09-22-2021 12:13-0400 Body temperature 98.01 [degF] Jennifer Nelson MD Work Phone: [facility] 08-25-2021 09:05-0400 Body height 170.2 cm Franciedi Romef PA-C Work Phone: [facility] 08-25-2021 09:05-0400 Body temperature 97.2 [degF] Franciedi Romef PA-C Work Phone: [facility] 08-25-2021 09:05-0400 Body weight 135.63 kg Francie Eusebia PA-C Work Phone: [facility] 08-25-2021 09:05-0400 Diastolic blood pressure 90 mm[Hg] Francie Eusebia PA-C Work Phone: [facility] 08-25-2021 09:05-0400 Heart rate 104 /min Frnacie Barataria PA-C Work Phone: [facility] 08-25-2021 09:05-0400 SaO2% (BldA) [Mass fraction] 96 % Francie Barataria PA-C Work Phone: [facility] 08-25-2021 09:05-0400 Systolic blood pressure 138 mm[Hg] Francie Eusebia PA-C Work Phone: [facility] 08-04-2021 15:57-0400 Body weight 135.72 kg Antonio Hui MD Work Phone: [facility] 08-04-2021 15:57-0400 Diastolic blood pressure 78 mm[Hg] Antonio Hui MD Work Phone: [facility] 08-04-2021 15:57-0400 Heart rate 79 /min Antonio Hui MD Work Phone: [facility] 08-04-2021 15:57-0400 Respiratory rate 16 /min Antonio Hui MD Work Phone: [facility] 08-04-2021 15:57-0400 SaO2% (BldA) [Mass fraction] 98 % Antonio Hui MD Work Phone: [facility] 08-04-2021 15:57-0400 Systolic blood pressure 136 mm[Hg] Antonio Hui MD Work Phone: [facility] 07-09-2021 13:03-0400 Body height 172.[address] Buddy Hui Work Phone: [facility] Work Phone: 07-09-2021 13:03-0400 Body mass index (BMI) [Ratio] 44.4 kg/m2 Dr. Buddy Hui Work Phone: [facility] Work Phone: 07-09-2021 13:03-0400 Body weight 132.[address] Buddy Hui Work Phone: [facility] Work Phone: 07-09-2021 13:03-0400 Diastolic blood pressure 80 mm[Hg] Dr. Buddy Hui Work Phone: [facility] Work Phone: 07-09-2021 13:03-0400 Systolic blood pressure 128 mm[Hg] Dr. Buddy Hui Work Phone: [facility] Work Phone: 06-27-2021 12:34-0400 Heart rate 76 /min [facility] Work Phone: 06-27-2021 11:57-0400 Diastolic blood pressure 86 mm[Hg] [facility] Work Phone: 06-27-2021 11:57-0400 Respiratory rate 18 /min [facility] Work Phone: 06-27-2021 11:57-0400 SaO2% (BldA) [Mass fraction] 99 % [facility] Work Phone: 06-27-2021 11:57-0400 Systolic blood pressure 152 mm[Hg] [facility] Work Phone: 06-27-2021 10:57-0400 Body height 172.72 cm [facility] Work Phone: 06-27-2021 10:57-0400 Body mass index (BMI) [Ratio] 43.2 kg/m2 [facility] Work Phone: 06-27-2021 10:57-0400 Body temperature 97.5 [degF] [facility] Work Phone: 06-27-2021 10:57-0400 Body weight 129 kg [facility] Work Phone: 06-27-2021 10:41-0400 Body temperature 98.1 [degF] Syeda Older [employer] Work Phone: [facility] 06-27-2021 10:41-0400 Body weight 132.81 kg Syeda Older [employer] Work Phone: [facility] 06-27-2021 10:41-0400 Diastolic blood pressure 98 mm[Hg] Syeda Older [employer] Work Phone: [facility] 06-27-2021 10:41-0400 Heart rate 81 /min Syeda Older [employer] Work Phone: [facility] 06-27-2021 10:41-0400 Respiratory rate 20 /min Syeda Older [employer] Work Phone: [facility] 06-27-2021 10:41-0400 SaO2% (BldA) [Mass fraction] 99 % Syeda Older [employer] Work Phone: [facility] 06-27-2021 10:41-0400 Systolic blood pressure 160 mm[Hg] Syeda Older [employer] Work Phone: [facility] 05-11-2021 19:26-0400 Diastolic blood pressure 81 mm[Hg] [facility] Work Phone: 05-11-2021 19:26-0400 Heart rate 72 /min [facility] Work Phone: 05-11-2021 19:26-0400 Respiratory rate 16 /min [facility] Work Phone: 05-11-2021 19:26-0400 SaO2% (BldA) [Mass fraction] 98 % [facility] Work Phone: 05-11-2021 19:26-0400 Systolic blood pressure 134 mm[Hg] [facility] Work Phone: 05-11-2021 15:50-0400 Body mass index (BMI) [Ratio] 45.3 kg/m2 [facility] Work Phone: 05-11-2021 15:50-0400 Body temperature 99.4 [degF] [facility] Work Phone: 05-11-2021 15:50-0400 Body weight 131.2 kg [facility] Work Phone: Encounters Encounter Date Encounter Type Care Provider Facility Start: 10-03-2024 End: 10-03-2024 ambulatory ANTONIO HUI Facility:[facility] Start: 09-18-2024 End: 09-18-2024 Patient encounter procedure Bessy Cernas BELLMAN DRIVER-C -[facility] Work Phone: Start: 09-18-2024 End: 09-18-2024 Patient encounter status Bessy Cernas BELLMAN DRIVER-C [facility] Start: 09-18-2024 End: 09-18-[address] Buddy Hui MD Work Phone: -[facility] Start: 09-18-2024 End: 09-18-2024 ambulatory Bessy Kelso Facility:[facility] Start: 09-05-2024 End: 09-05-2024 Patient encounter procedure Sofy Dean MD, PhD Work Phone: [facility] Comment on above: Cervical disc disord er at C6-C7 level with radiculopathy (Primary Dx); DDD (degenerative disc disease), cervical; Diabetes mellitus type II (HCC); S/P bilateral breast reduction Start: 09-05-2024 End: 09-05-2024 ambulatory SOFY DEAN Facility:[facility] Start: 08-28-2024 Non-patient / Non-visit Dr. Leisa moss MD -[facility] Work Phone: Start: 08-27-2024 End: 08-30-2024 Chart abstracting None (Historical) Neurology Start: 08-21-2024 End: 08-22-2024 Refill Antonio Hui MD Work Phone: [facility] [place] Comment on above: Refill Request Start: 08-06-2024 End: 08-06-2024 Emergency department patient visit Dr. Buddy Hui MD Work Phone: -Emergency Department Work Phone: Start: 08-02-2024 End: 08-02-2024 Refill Antonio Hui MD Work Phone: [facility] Comment on above: Refill Request Start: 07-09-2024 End: 07-09-2024 Refill Antonio Hui MD Work Phone: [facility] Comment on above: Refill Request Start: 05-08-2024 End: 05-08-2024 Refill Antonio Hui MD Work Phone: [facility] Comment on above: Refill Request Start: 05-02-2024 End: 07-02-2024 Follow-up encounter Eileen Nagy LPN [facility] [place] Start: 04-30-2024 End: 04-30-2024 Patient encounter procedure Karla Ocampo NOZZLEMAN.TEAM AUTOMOBILE ASSEMBLER Work Phone: [facility] [place] Comment on above: Diabetes mellitus ty pe II (HCC) (Primary Dx); Hyperlipidemia, unspecified hyperlipidemia type; Primary hypertension; Gastroesophageal reflux disease, unspecified whether esophagitis present Start: 04-30-2024 End: 04-30-2024 ambulatory ANTONIO HUI Facility:[facility] Start: 04-16-2024 End: 06-16-2024 Follow-up encounter Eileen Nagy LPN [facility] [place] Start: 04-11-2024 End: 04-11-2024 Patient encounter procedure Karla Ocampo NOZZLEMAN.TEAM AUTOMOBILE ASSEMBLER Work Phone: [facility] Comment on above: UTI symptoms (Primar y Dx) Start: 04-11-2024 End: 04-11-2024 ambulatory Antonio Hui MD Work Phone: [facility] Comment on above: 03/12 Urgent care vis it UTI Start: 04-02-2024 End: 04-02-2024 ambulatory ANTONIO HUI Facility:[facility] Start: 04-02-2024 End: 04-02-2024 Subsequent hospital visit by physician Victoria [facility] [place] [facility] Work Phone: Radiology Comment on above: Acute pain of left s jacques [M25.512] Start: 04-02-2024 End: 04-02-2024 Patient encounter procedure Antonio Hui MD Work Phone: [facility] [place] Comment on above: Acute pain of left s jacques (Primary Dx) Start: 04-02-2024 End: 04-02-2024 ambulatory ANTONIO HUI Facility:[facility] Start: 03-13-2024 End: 03-13-2024 Telephone encounter Kamryn GONZALEZ Work Phone: [facility] Comment on above: Results Start: 03-12-2024 End: 03-12-2024 Telephone encounter Kamryn GONZALEZ Work Phone: [facility] Comment on above: Medication Request Start: 03-12-2024 End: 03-12-2024 Patient encounter procedure aKmryn GONZALEZ Work Phone: [facility] Comment on above: Urinary frequency (P rimary Dx) Start: 03-12-2024 End: 03-12-2024 ambulatory ANTONIO HUI Facility:[facility] Start: 02-21-2024 End: 02-21-2024 ambulatory ANTONIO HUI Facility:[facility] Start: 02-21-2024 End: 02-21-2024 Patient encounter procedure Lis Roth APRN.TEAM AUTOMOBILE ASSEMBLER Work Phone: [facility] Comment on above: Upper back pain (Jaylin belkys Dx) Start: 02-17-2024 End: 02-17-2024 Emergency department patient visit Buddy Hui Facility:[facility] Start: 02-17-2024 End: 02-17-2024 ambulatory Antonio Hui MD Work Phone: [facility] Comment on above: corticosteroid injec tion side effects Hypertension Start: 01-30-2024 End: 01-30-2024 ambulatory ANTONIO HUI Facility:[facility] Start: 01-30-2024 End: 01-30-2024 Office outpatient visit 15 minutes Willian Andrew APRN.TEAM AUTOMOBILE ASSEMBLER Work Phone: [facility] Comment on above: Viral upper respirat ory illness (Primary Dx) Start: 01-16-2024 End: 01-16-2024 Refill Karla Ocampo APRN.TEAM AUTOMOBILE ASSEMBLER Work Phone: [facility] [place] Comment on above: Refill Request Start: 10-07-2023 End: 10-07-2023 ambulatory ANTONIO HUI Facility:[facility] Start: 10-07-2023 End: 10-07-2023 ambulatory ANTONIO HUI Facility:[facility] Start: 10-07-2023 End: 10-07-2023 Patient encounter procedure Antonio Hui MD Work Phone: [facility] Comment on above: Annual physical exam (Primary Dx); Diabetes mellitus type II (HCC); Primary hypertension; Hyperlipidemia, unspecified hyperlipidemia type; Class 1 obesity with serious comorbidity and body mass index (BMI) of 33.0 to 33.9 in adult, unspecified obesity type; Gastroesophageal reflux disease, unspecified whether esophagitis present; DDD (degenerative disc disease), cervical; DDD (degenerative disc disease), lumbar Start: 08-17-2023 ambulatory Antonio Hui MD Work Phone: Internal Medicine [place] [id number] Start: 08-09-2023 End: 08-09-2023 Patient encounter procedure Kamryn GONZALEZ Work Phone: [facility] Comment on above: Sore throat (Primary Dx) Start: 06-08-2023 ambulatory Antonio Hui MD Work Phone: [facility] [place] Comment on above: Dosage increase for Mounjaro Start: 04-27-2023 ambulatory Antonio Hui MD Work Phone: [facility] Comment on above: Record from last vis it Start: 03-28-2023 End: 03-28-2023 [facility] Start: 12-23-2022 End: 12-23-2022 Admission to same day surgery center [facility] Start: 12-23-2022 End: 12-23-2022 ambulatory [facility] Work Phone: Start: 11-02-2022 Get Medical Advice Doris Hui MD Work Phone: [facility] Comment on above: Order for bloodwork needed Start: 09-05-2022 End: 09-05-2022 Emergency department patient visit Dr. Buddy Hui Work Phone: [facility] Work Phone: Start: 08-30-2022 Refill Antonio Hui MD Work Phone: [facility] Comment on above: Refill Request Start: 08-20-2022 ambulatory Antonio Hui MD Work Phone: [facility] Comment on above: mounjuro Start: 08-17-2022 Get Medical Advice Doris Hui MD Work Phone: [facility] Comment on above: Mounjaro refill Start: 08-12-2022 End: 08-12-2022 Patient encounter procedure Antonio Hui MD Work Phone: [facility] Comment on above: Diabetes mellitus ty pe II (HCC) (Primary Dx); Macromastia; S/P bilateral breast reduction; Primary hypertension; Hyperlipidemia, unspecified hyperlipidemia type; Obesity, Class III, BMI 40-49.9 (morbid obesity) (HCC); Encounter for hepatitis C screening test for low risk patient Start: 08-11-2022 ambulatory Antonio Hui MD Work Phone: Internal Medicine [facility] Start: 07-13-2022 End: 07-13-[address] Buddy Hui Work Phone: [facility] Work Phone: Start: 07-12-2022 Telephone encounter Buddy Hui MD Work Phone: [facility] [place] Comment on above: Refill Request Start: 07-09-2022 Telephone encounter Buddy Hui MD Work Phone: [facility] [place] Comment on above: Insurance Authorizat ion (Mounjaro) Start: 06-28-2022 ambulatory Karla Podlogar NOZZLEMAN.TEAM AUTOMOBILE ASSEMBLER Work Phone: [facility] [place] Comment on above: monjuro Start: 06-21-2022 Telephone encounter Karla Podl ogar NOZZLEMAN.TEAM AUTOMOBILE ASSEMBLER Work Phone: [facility] [place] Comment on above: Results Start: 06-17-2022 [facility] Get Medical Advice Doris Hui MD Work Phone: [facility] [place] Comment on above: Meloxicam refill nee ded meloxicam Start: 05-17-2022 Telephone encounter Buddy Hui MD Work Phone: [facility] [place] Comment on above: Medication Problem Start: 05-12-2022 End: 05-12-2022 Subsequent hospital visit by physician [facility] Work Phone: Radiology Comment on above: Encounter for screen ing for osteoporosis [Z13.820] Start: 03-31-2022 ambulatory Karla Podlogar NOZZLEMAN.TEAM AUTOMOBILE ASSEMBLER Work Phone: [facility] [place] Comment on above: monitor Start: 03-30-2022 Refill Antonio Hui MD Work Phone: [facility] [place] Comment on above: Refill Request Start: 03-10-2022 Telephone encounter Buddy Hui MD Work Phone: [facility] [place] Comment on above: Insurance Authorizat ion (Moiunjaro ) Start: 03-09-2022 Refill Karla Podlogar NOZZLEMAN.TEAM AUTOMOBILE ASSEMBLER Work Phone: [facility] [place] Comment on above: Refill Request PA for Mounjaro Start: 02-16-2022 ambulatory Antonio Hui MD Work Phone: Family [facility] [place] Comment on above: mounjaro Start: 11-20-2021 Refill Antonio Hui MD Work Phone: [facility] Comment on above: Refill Request Start: 09-25-2021 Telephone encounter Jennifer Strickland MD Work Phone: General Surgery Comment on above: Results Start: 09-22-2021 End: 09-22-2021 Subsequent hospital visit by physician Jennifer Nelson MD Work Phone: [facility] SUR[facility]ERY Comment on above: Screening for colon cancer [Z12.11] Start: 08-25-2021 Admission to [facility] Antonio Hui MD Work Phone: [facility] [place] Comment on above: plastic surgery Start: 08-25-2021 ambulatory Antonio Hui MD Work Phone: [facility] Start: 08-25-2021 Telephone encounter Francie gomez PA-C Work Phone: General Surgery Comment on above: 09/22/2021 COLON LOD I Start: 08-25-2021 End: 08-25-2021 Patient encounter procedure Francie Laws PA-C Work Phone: General Surgery Comment on above: Screening for colon cancer Start: 08-24-2021 Telephone encounter Karla reid APRN.TEAM AUTOMOBILE ASSEMBLER Work Phone: Family [facility] Comment on above: Orders Start: 08-11-2021 ambulatory Antonio Hui MD Work Phone: Family [facility] [place] Comment on above: tingling & numbness down arm into fingers Start: 08-11-2021 Telephone encounter Karla reid APRN.TEAM AUTOMOBILE ASSEMBLER Work Phone: Family [facility] Comment on above: Appointment; Patient Update Appointment Start: 08-04-2021 End: 08-04-2021 Patient encounter procedure Antonio Hui MD Work Phone: Family [facility] [place] Comment on above: Diabetes mellitus ty pe II (HCC) (Primary Dx); Primary hypertension; Hyperlipidemia, unspecified hyperlipidemia type; Gastroesophageal reflux disease, unspecified whether esophagitis present; Morbid obesity with BMI of 40.0-44.9, adult (HCC); DDD (degenerative disc disease), lumbar; Screening for colon cancer; Need for vaccination; Labral tear of hip, degenerative Start: 07-09-2021 End: 07-09-[address] Buddy Hui Work Phone: [facility] Start: 06-27-2021 End: 06-27-2021 [facility] Start: 06-27-2021 End: 06-27-2021 Patient encounter procedure Syeda Tenorio NOZZLEMANSEYMOUR Work Phone: [facility] Comment on above: S/P epidural steroid injection (Primary Dx); Neck pain; Dizziness; Intractable vomiting Start: 05-11-2021 End: 05-11-2021 [facility] Date Procedure Procedure Detail Performing Clinician Start: 09-18-2024 Screening mammography Elie Hui MD Work Phone: Start: 04-11-2024 Urnls dip stick/tabl et rgnt auto w/o microscopy Karla Ocampo NOZZLEMAN.TEAM AUTOMOBILE ASSEMBLER Work Phone: Start: 03-12-2024 Urnls dip stick/tabl et rgnt auto w/o microscopy Kamryn GONZALEZ Work Phone: Start: 01-30-2024 STREP A MOLECULAR (POC) Carmela Alberts PA-C Work Phone: Start: 08-09-2023 STREP A MOLECULAR (POC) Dion Polk APRN.TEAM AUTOMOBILE ASSEMBLER Work Phone: Start: 03-28-2023 US scan of gallbladder Start: 12-23-2022 Vaginal Sling, Tensi on Free,Cysto (Not Applicable) Start: 08-14-2022 History of reduction of breast S/P bilateral breast reduction Antonio Hui MD Work Phone: Start: 05-12-2022 Dxa bone density yovana dy 1/> sites axial skel Antonio Hui MD Work Phone: Start: 09-22-2021 Gluc bld gluc mntr d ev cleared fda spec home use Kaelyn Hilton MD Work Phone: Start: 09-22-2021 Colonoscopy Jennifer Nelson MD Work Phone: Start: 07-09-2021 End: 07-09-[address] Buddy west Work Phone: Start: 06-27-2021 CT of head without contrast Start: 05-11-2021 Plain chest X-ray Start: 05-11-2021 US scan of gallbladder Start: 08-14-2020 Adult depression screening assessment Syeda Older NOZZLEMAN.TEAM AUTOMOBILE ASSEMBLER Work Phone: Start: 07-07-2020 Mammography Syeda Older NOZZLEMAN.TEAM AUTOMOBILE ASSEMBLER Work Phone: History of reduction of breast S/P bilateral breast reduction Antonio Hui MD Work Phone: History of reduction of breast S/P bilateral breast reduction Sofy Dean MD, PhD Work Phone: Plan of Treatment Date Care Activity Detail Author Start: 09-05-2032 Urine microalbumin profile DTaP,Tdap,Td Vaccine (3 - Td or Tdap) [facility] Start: 09-23-2031 Colonoscopy COLONOSCOPY [facility] Start: 09-23-2031 COLORECTAL CANCER SCREENING COLORECTAL CANCER SCREENING [facility] Start: 09-23-2031 Screening for malign ant neoplasm of colon [facility] Start: 05-25-2025 Glaucoma screening Dilated Retinal E xam [facility] Start: 04-30-2025 Annual PCP Team Signs And Displays Sales Representative jose e Disease Visit Annual PCP Team Chronic Disease Visit [facility] Start: 04-30-2025 Covid-19 Vaccine ( season) Covid-19 Vaccine ( season) [facility] Comment on above: Postponed from 10/29 (Declined at this time) Start: 04-30-2025 Hepatitis B screening Urine Albumin:Creatinine Ratio [facility] Start: 04-30-2025 Pneumococcal Vaccine : 50+ (1 of 2 - PCV) Pneumococcal Vaccine: 50+ (1 of 2 - PCV) [facility] Comment on above: Postponed from 05/20 (Declined at this time) Start: 04-11-2025 Annual PCP Team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 Chiropractor, Acupuncture): Meloxicam 6. Are you currently taking daily prescribed narcotic medications for your current symptoms (For example Oxycodone, Hydrocodone, Tramadol, Morphine, Other)? No 7. Have you had previous spinal surgery for this same symptoms? No If YES? please ask for the name of facility/address of where the surgery was completed: Additional Comments [phone] (Home Phone)[facility]06-24-2025 Telephone encounter Note* Telephone Encounter - Agustina Sloan LPN - 08/21/2024 4:30 PM EDT Prescription Refill Information The patient has been identified by name and date of : Yes Caregiver verified no other encounters exist for this prescription request: Yes Caregiver confirmed with patient/requestor that no other refills are due, in the near future, with this provider at this time: Yes The last office visit in the department: 04/30/24 Does the patient have a future office visit with this provider/department: Yes 11/05/24 Requested Prescriptions Pending Prescriptions Disp Refills tirzepatide (MOUNJARO) 15 mg/0.5 mL pen injector 6 mL 1 Sig: Inject 15 mg subcutaneously one time a week. Agustina Sloan LPN August 21, 2024 4:30 PM [facility]06-24-2025 Miscellaneous Notes* Telephone Encounter - Agustina Sloan LPN - 08/21/2024 4:30 PM EDT Prescription Refill Information The patient has been identified by name and date of : Yes Caregiver verified no other encounters exist for this prescription request: Yes Caregiver confirmed with patient/requestor that no other refills are due, in the near future, with this provider at this time: Yes The last office visit in the department: 04/30/24 Does the patient have a future office visit with this provider/department: Yes 11/05/24 Requested Prescriptions Pending Prescriptions Disp Refills tirzepatide (MOUNJARO) 15 mg/0.5 mL pen injector 6 mL 1 Sig: Inject 15 mg subcutaneously one time a week. Agustina Sloan LPN August 21, 2024 4:30 PM documented in this encounterCl[facility]06-09-2025 Discharge summary [facility] Medical Records Department [address] [place] [id number] Emergency Department Summary 08/06/24 MR#: [id number] Acct: [id number] Name: FANTASMA RHOADES Rep #:[id number] : 1970 54 From: Raul adams DO PCP: Dr. Buddy Hui MD Status :REG ER Location: ED HPI History of Present Illness Chief Complaint: Back Narrative Narrative: Chief complaint and HPI: Lumbar back pain. 54-year-old female with past medicalhistory of DM2, HTN,HLD, DDD presents for evaluation of lumbar back pain. Onset yesterday after closing a window. Has not taken any Tylenol or Motrin. States she had a leftover muscle relaxer from months ago that provided little relief. Denies any direct trauma to the back. Denies numbness, weakness, urinary retention, stool or urinary incontinence, saddle anesthesia, recent invasive manipulation of the spine, intravenous drug use, or fever. Review of systems: See HPI Medications: As listed on the chart Allergies: As listed on the chart PFSH: Per chart Vital signs: As listed on the chart. Reviewed. Physical exam: Gen: A&O x3, NAD Head: Normocephalic, atraumatic Eyes: No sclera icterus, conjunctiva clear ENT: Moist mucous membranes Neck: Trachea midline, No JVD CV: RRR, no murmurs, no peripheral edema Resp: Lungs CTA BL, no w/r/c GI: Abd soft, non-distended, non-tender, no r/r/g Musc: Limited range of motion secondary to back pain, no deformity, no midline spinal tenderness, no bony step-off, strength +5/5 of bilateral lower extremities, no signs of trauma or infection, patient is mildly tender to palpation of the right lumbar paraspinal musculature of the lower lumbar spine and in the right piriformis region-recreates her pain Skin: Warm, dry Neuro: Alert, oriented, grossly intact, sensation intact Psych: Cooperative, appropriate mood and affect [facility] Medical History JENNIFFER (stress urinary incontinence, female) Wears glasses Alcohol use Diabetes Bladder disease High cholesterol Back pain Dietary restriction Gastric reflux Former smoker History of echocardiogram History of stress test Endometriosis Hyperlipidemia Hypertension Home Medications ?Medication ?Instructions ?Recorded ?Last Taken ?Type aspirin 81 mg chewable tablet 81 mg PO DAILY@0800 10/1112/15/22 History cholecalciferol (vitamin D3) 25 1,000 unit PO DAILY Unknown History mcg (1,000 unit) capsule calcium carbonate 300 mg PO BID 02/20/16 Unkno wn History glucosamine sulfate 250 1 ea PO BID 02/20/16 Unknown History mg-chondroitin sulfate A 200 mg capsule pantoprazole 40 mg tablet,delayed 40 mg PO DAILY 02/1912/23/22 History release cetirizine 10 mg capsule 10 mg PO DAILY PRN Allergies 10/22/18 Unknown History meloxicam 15 mg tablet 15 mg PO DAILY 12/21/2211/28 History epinephrine 0.3 mg/0.3 mL 0.3 mg IM Q4H 03/28/23 Unkno wn History injection, auto-injector hydrochlorothiazide 12.5 mg tablet 12.5 mg PO DAILY Unknown History losartan 50 mg tablet 50 mg PO BID 03/28/23 Unknow n History metformin 500 mg tablet 500 mg PO BID 03/28/23 Unkno wn History simvastatin 10 mg tablet 10 mg PO DAILY 03/28/23 Unkn own History tirzepatide 12.5 mg/0.5 mL 15 mg subcut QWEEK 09/12/23 Unknown History subcutaneous pen injector (Guero) venlafaxine 75 mg capsule,extended 75 mg PO QHS #90 ca ps 02/27/24 Unknown Rx release 24 hr cyclobenzaprine 5 mg tablet 5 mg PO TID PRN muscle spa sm 3 08/06/24 Unknown Rx days #9 tabs Allergy/AdvReac Type Severity Reaction Status Date / Time codeine Allergy Anaphylaxis Verified 08/06/24 08:24 Iodinated Contrast Media (iv Allergy Anaphylaxis Verified 08/06/24 08:24 contrast dye) shellfish derived Allergy Nausea/Vom/ Verified 08/06/24 08:24 Diarrhea Sulfa (Sulfonamide Allergy Anaphylaxis Verified 08/06/24 08:24 Antibiotics) pineapple (Pineapple) AdvReac Nausea/Vom/ Verified 08/06/24 08:24 Diarrhea squash AdvReac Nausea/Vom/ Verified 08/06/24 08:24 Diarrhea walnut AdvReac Nausea/Vom/ Verified 08/06/24 08:24 Diarrhea Family History Father Myocardial infarction Hypertension Mother Heart disease Hypertension Grandmother Heart disease Hypertension Surgical History S/P panniculectomy Hx of breast reduction, elective Hx of arthroscopy of right knee Labral tear of left hip joint History of lateral meniscus repair of left knee H/O laparoscopy H/O: hysterectomy Plantar fascia syndrome Social History Smoking Status: Former smoker alcohol intake: current details: social substance use type: does not use caffeine: Yes frequency: 3-4 times per week seatbelt use: always do you feel safe at home: Yes additional social history: seperated EXAM Physical Exam Const Vital Signs: 08/06/24 08:24 Temperature 97.8 F Temperature Source Oral Pulse Rate 95 Respiratory Rate 16 Blood Pressure 144/102 H Blood Pressure Mean 116 Pulse Ox 97 Oxygen Delivery Method Room Air MDM MDM MDM Narrative Medical decision making narrative: 54-year-old female with past medical history of DM2, HTN, HLD, DDD presents for evaluation of lumbar back pain. Onset yesterday after closing a window. Has not taken any Tylenol or Motrin. Did have an old muscle relaxer at home which she took with little relief. States it was not Flexeril. There has been no direct trauma. There is nothing to suggest any infectious etiology. The patient is not an IV drug user. There is no neurologic findings to suggest an acute cauda equina syndrome, infectious etiology, or any acute radiculopathy. At this point I do not feel any emergent imaging such as x-rays, CT, MRI are warranted. Patient symptoms will be treated. She did not drive to the emergency department. IM Toradol and Valium will be given. Patient stable to discharge home. Follow- up with PCP. Return precautions explained. Will give her a shortprescription of Flexeril. Recommended Tylenol. Patient did not take her meloxicam today therefore okay to take Motrin after 8 hours with the Toradol. Was educated that if she takes meloxicam do not take ibuprofen/Motrin. Impression: 1. Lumbar back strain Discharge Plan Triage Chief Complaint: Back ED Provider: Raul Abreu Dx/Rx/DC Orders Clinical Impression: Lumbar strain Instructions: ED Back Sprain/Strain Prescriptions: New cyclobenzaprine 5 mg tablet 5 mg PO TID PRN (Reason: muscle spasm) 3 Days Qty: 9 0RF No Action Mounjaro 12.5 mg/0.5 mL pen injector 15 mg subcut QWEEK aspirin 81 MG tablet,chewable 81 mg PO DAILY@0800 Patient Comments: [employer] cholecalciferol (vitamin D3) 1,000 UNIT capsule 1,000 unit PO DAILY Patient Comments: Supplement calcium carbonate 600 MG tablet 300 mg PO BID Patient Comments: supplement glucosamine sulf-chondroitinSA 1 EACH capsule 1 ea PO BID Patient Comments: supplement pantoprazole 40 MG tablet 40 mg PO DAILY Patient Comments: acid reflux med cetirizine 10 MG capsule 10 mg PO DAILY PRN (Reason: Allergies) meloxicam 15 mg tablet 15 mg PO DAILY epinephrine 0.3 mg/0.3 mL auto-injector 0.3 mg IM Q4H hydrochlorothiazide 12.5 mg tablet 12.5 mg PO DAILY losartan 50 mg tablet 50 mg PO BID metformin 500 mg tablet 500 mg PO BID simvastatin 10 mg tablet 10 mg PO DAILY venlafaxine 75 mg capsule,extended release 24hr 75 mg PO QHS Qty: 90 2RF Primary Care Provider: Buddy Hui Referrals: Buddy Hui MD [Primary Care Provider] - Activity Restrictions/Additional Instructions: Tylenol and Motrin as needed for pain. You received Toradol here in the emergency department, no Motrin for 8 hours. You received most relaxer in the emergency department, no muscle relaxer for 8 hours. Muscle relaxers as needed. Do not drive or operate heavy machinery while taking muscle relaxers.They canmake you tired, confused, lightheaded, and increased falls. Recommended rest and gentle stretching. Follow-up with PCP. Print Language: Portuguese Disposition Disposition: Home, Self Care What to do if you have Problems For any increased pain, shortness of breath, bleeding, nausea or vomiting, chestpain, or any unexpected problems, contact your Primary Care Provider. Call [facility] ([phone]) or report tothe closest Emergency Room. Call 911 if necessary. 08/06/24 0912 Cosigner Signature (if applicable): CC: Dr. Buddy Hui MD ~ Signed [facility]06-05-2025 Telephone encounter Note* Telephone Encounter - Francie Marshall RN - 08/02/2024 1:32 PM EDT The patient has been identified by name and date of : Yes Caregiver verified no other encounters exist for this prescription request: Yes Caregiver confirmed with patient/requestor that no other refills are due, in the near future, with this provider at this time: Yes The last office visit in the department: 04/30/2024 Does the patient have a future office visit with this provider/department: Yes 10/31/2024 Requested Prescriptions Pending Prescriptions Disp Refills hydroCHLOROthiazide 12.5 mg tablet 90 tablet 1 Sig: Take 1 tablet by mouth once daily. losartan (COZAAR) 50 mg tablet 180 tablet 1 Sig: Take two tablets daily metFORMIN (GLUCOPHAGE) 500 mg tablet 180 tablet 1 Sig: Take 1 tablet by mouth two times a day with meals. . pantoprazole DR (PROTONIX) 40 mg tablet 90 tablet 1 Sig: Take 1 tablet by mouth once daily. Francie Marshall RN August 02, 2024 1:34 PM [facility]06-05-2025 Miscellaneous Notes* Telephone Encounter - Francie Marshall RN - 08/02/2024 1:32 PM EDT The patient has been identified by name and date of : Yes Caregiver verified no other encounters exist for this prescription request: Yes Caregiver confirmed with patient/requestor that no other refills are due, in the near future, with this provider at this time: Yes The last office visit in the department: 04/30/2024 Does the patient have a future office visit with this provider/department: Yes 10/31/2024 Requested Prescriptions Pending Prescriptions Disp Refills hydroCHLOROthiazide 12.5 mg tablet 90 tablet 1 Sig: Take 1 tablet by mouth once daily. losartan (COZAAR) 50 mg tablet 180 tablet 1 Sig: Take two tablets daily metFORMIN (GLUCOPHAGE) 500 mg tablet 180 tablet 1 Sig: Take 1 tablet by mouth two times a day with meals. . pantoprazole DR (PROTONIX) 40 mg tablet 90 tablet 1 Sig: Take 1 tablet by mouth once daily. Francie Marshall RN August 02, 2024 1:34 PM [facility] Telephone encounter Note * Telephone Encounter - Lily Iverson LPN - 07/09/2024 2:13 PM EDT Prescription Refill Information The patient has been identified by name and date of : Yes Caregiver verified no other encounters exist for this prescription request: Yes Caregiver confirmed with patient/requestor that no other refills are due, in the near future, with this provider at this time: Yes The last office visit in the department: 04/30/2024 Does the patient have a future office visit with this provider/department: Yes Requested Prescriptions Pending Prescriptions Disp Refills tirzepatide (MOUNJARO) 15 mg/0.5 mL pen injector 6 mL 1 Sig: Inject 15 mg subcutaneously one time a week. simvastatin (ZOCOR) 10 mg tablet 90 tablet 1 Sig: Take 1 tablet by mouth daily at bedtime. Lily Iverson LPN July 09, 2024 2:14 PM [facility]05-12-2025 Miscellaneous Notes* Telephone Encounter - Lily Iverson LPN - 07/09/2024 2:13 PM EDT Prescription Refill Information The patient has been identified by name and date of : Yes Caregiver verified no other encounters exist for this prescription request: Yes Caregiver confirmed with patient/requestor that no other refills are due, in the near future, with this provider at this time: Yes The last office visit in the department: 04/30/2024 Does the patient have a future office visit with this provider/department: Yes Requested Prescriptions Pending Prescriptions Disp Refills tirzepatide (MOUNJARO) 15 mg/0.5 mL pen injector 6 mL 1 Sig: Inject 15 mg subcutaneously one time a week. simvastatin (ZOCOR) 10 mg tablet 90 tablet 1 Sig: Take 1 tablet by mouth daily at bedtime. Lily Iverson LPN July 09, 2024 2:14 PM [facility] Telephone encounter Note * Telephone Encounter - Lily Iverson LPN - 05/08/2024 9:02 AM EDT Prescription Refill Information The patient has been identified by name and date of : Yes Caregiver verified no other encounters exist for this prescription request: Yes Caregiver confirmed with patient/requestor that no other refills are due, in the near future, with this provider at this time: Yes The last office visit in the department: 04/30/2024 Does the patient have a future office visit with this provider/department: Yes Requested Prescriptions Pending Prescriptions Disp Refills meloxicam (MOBIC) 15 mg tablet 90 tablet 0 Sig: Take 1 tablet by mouth once daily. Lily Iverson LPN May 08, 2024 9:02 AM [facility]03-11-2025 Miscellaneous Notes* Telephone Encounter - Lily Iverson LPN - 05/08/2024 9:02 AM EDT Prescription Refill Information The patient has been identified by name and date of : Yes Caregiver verified no other encounters exist for this prescription request: Yes Caregiver confirmed with patient/requestor that no other refills are due, in the near future, with this provider at this time: Yes The last office visit in the department: 04/30/2024 Does the patient have a future office visit with this provider/department: Yes Requested Prescriptions Pending Prescriptions Disp Refills meloxicam (MOBIC) 15 mg tablet 90 tablet 0 Sig: Take 1 tablet by mouth once daily. Lily Iverson LPN May 08, 2024 9:02 AM documented in [facility]Cl[facility]25 NoteHNO ID: [id number] Author: KARLA OCAMPO APRN.[employer] Service: ? Author Type: Nurse Practitioner Type: Progress Notes Filed: 04/30/2024 16:03 Note Text: 04/11/2024 Patient presents with: F/U 6 months SUBJECTIVE: This is a 53 year old that is here today for Above Complaints. DIABETES MELLITUS: Since our last visit she denies excessive thirst or increased frequency of urination, chest pain or dyspnea , numbness, tingling or pain in extremities, new or unusual visual symptoms, low sugar/hypoglycemic reactions, weight loss/gain, lightheadedness/dizziness, and bowel changes/loose stools. Follows a diabetic diet most of the time. She is compliant with medication(s) and is tolerating med(s) without any side effects. She reports checking her glucose on a once a day schedule with sugars in the fasting 75-90 range. Patient's last HgA1C was Hemoglobin A1C (%) Date Value 10/07/2023 4.9 11/09/2022 5.3 01/31/2021 5.6 08/18/2020 5.8 ) Last Ophthalmology exam was has to make appointment HTN: Patient is compliant with meds Yes Monitors bp at home: No. Denies side effects: Yes. Chest pain: No. Dyspnea: No. Edema: No. Palpitations: No. Syncope: No. Headache: No. Dizziness: No. GERD: Taking pantoprazole as prescribed without side effects. Works well to control symptoms HYPERLIPIDEMIA: Patient is taking medications: Yes. Patient is watching diet: Yes. Patient denies myalgias: Yes. Patient denies gi upset: Yes PAST MEDICAL HISTORY Diagnosis Date Acute meniscal tear of left knee 2013 s/p repair Arthritis of left shoulder region mild DDD (degenerative disc disease), cervical DDD (degenerative disc disease), lumbar [facility] Jonathan Diabetes mellitus type II (HCC) Endometriosis GERD (gastroesophageal reflux disease) Hot flashes Hyperlipidemia Hypertension Labral tear of hip, degenerative left hip, Seeing ortho Obesity Plantar fasciitis of right foot 2013 s/p plantar fasciotomy S/P hysterectomy LSO Seasonal allergies Uterine fibroid s/p hysterectomy ALLERGIES Codeine, Contrast Dye, Shellfish Containing Products, Squash, Sulfa Dyne, and Anchor MEDICATIONS Current Outpatient Medications Medication Sig phenazopyridine (PYRIDIUM) 200 mg tablet Take 1 tablet by mouth three times a day as needed. cyclobenzaprine (FLEXERIL) 10 mg tablet Take 1 tablet by mouth two times a day as needed for muscle spasm. phenazopyridine (PYRIDIUM) 200 mg tablet Take 1 tablet by mouth three times a day as needed. glucosamine/msm/chondroit sulf (GLUCOSAMINE [id number] ORAL) cyclobenzaprine (FLEXERIL) 10 mg tablet Take 1 tablet by mouth three times a day as needed for muscle spasm. benzonatate (TESSALON PERLE) 100 mg capsule Take 1 capsule by mouth three times a day as needed for cough. (Patient not taking: Reported on 02/21/2024) tirzepatide (MOUNJARO) 15 mg/0.5 mL pen injector Inject 15 mg subcutaneously one time a week. meloxicam (MOBIC) 15 mg tablet Take 1 tablet by mouth once daily. simvastatin (ZOCOR) 10 mg tablet Take 1 tablet by mouth daily at bedtime. EPINEPHrine (EPIPEN) 0.3 mg/0.3 mL auto-injector 1 INJECTION NEEDED IN THIGH pantoprazole DR (PROTONIX) 40 mg tablet Take 1 tablet by mouth once daily. hydroCHLOROthiazide 12.5 mg tablet Take 1 tablet by mouth once daily. metFORMIN (GLUCOPHAGE) 500 mg tablet Take 1 tablet by mouth two times a day with meals. . losartan (COZAAR) 50 mg tablet Take two tablets daily Blood-Glucose Meter (CONTOUR NEXT ONE METER) Check blood sugar twice daily and as needed blood sugar diagnostic (CONTOUR NEXT TEST STRIPS) test strip Check blood sugar twice a day and as needed Cholecalciferol, Vitamin D3, 25 mcg (1,000 unit) [...] mouth twice daily. No current facility-administered medications for this visit. Medications and allergies reviewed by this provider. SOCIAL HISTORY Social History Tobacco Use Smoking status: Former Current packs/day: 0.00 Average packs/day: 0.5 packs/day for 10.0 years (5.0 ttl pk-yrs) Types: Cigarettes Start date: 04/29/2001 Quit date: 04/30/2011 Years since quittin.0 Smokeless tobacco: Never Vaping Use Vaping status: Never Used Substance Use Topics Alcohol use: Not Currently Alcohol/week: 6.0 standard drinks of alcohol Types: 6 Glasses of wine per week Drug use: No REVIEW OF SYSTEMS All other reviewed and negative other than HPI. OBJECTIVE: BP 134/82 Pulse 81 Resp 18 Wt 100.1 kg (220 lb 9.6 oz) SpO2 96% BMI 34.55 kg/m? . Vital signs reviewed by this provider. APPEARANCE Well appearing, alert, in no acute distress, well-hydrat (more content not included)...[facility]03-03-2025 History of Present illness Narrative* Karla Ocampo APRN.[employer] - 04/30/2024 2:36 PM EST 04/11/2024 Patient presents with: F/U 6 months SUBJECTIVE: This is a 53 year old that is here today for Above Complaints. DIABETES MELLITUS: Since our last visit she denies excessive thirst or increased frequency of urination, chest pain or dyspnea , numbness, tingling or pain in extremities, new or unusual visual symptoms, low sugar/hypoglycemic reactions, weight loss/gain, lightheadedness/dizziness, and bowel changes/loose stools. Follows a diabetic diet most of the time. She is compliant with medication(s) and istolerating med(s) without any side effects. She reports checking her glucose on a once a day schedule with sugars in the fasting 75-90 range. Patient's last HgA1C was Hemoglobin A1C (%) Date Value 10/07/2023 4.9 11/09/2022 5.3 01/31/2021 5.6 08/18/2020 5.8 ) Last Ophthalmology exam was has to make appointment HTN: Patient is compliant with meds Yes Monitors bp at home: No. Denies side effects: Yes. Chest pain: No. Dyspnea: No. Edema: No. Palpitations: No. Syncope: No. Headache: No. Dizziness: No. GERD: Taking pantoprazole as prescribed without side effects. Works well to control symptoms HYPERLIPIDEMIA: Patient is taking medications: Yes. Patient is watching diet: Yes. Patient denies myalgias: Yes. Patient denies gi upset: Yes PAST MEDICAL HISTORY Diagnosis Date Acute meniscal tear of left knee 2013 s/p repair Arthritis of left shoulder region mild DDD (degenerative disc disease), cervical DDD (degenerative disc disease), lumbar [facility] Jonathan Diabetes mellitus type II (HCC) Endometriosis GERD (gastroesophageal reflux disease) Hot flashes Hyperlipidemia Hypertension Labral tear of hip, degenerative left hip, Seeing ortho Obesity Plantar fasciitis of right foot 2013 s/p plantar fasciotomy S/P hysterectomy LSO Seasonal allergies Uterine fibroid s/p hysterectomy ALLERGIES Codeine, Contrast Dye, Shellfish Containing Products, Squash, Sulfa Dyne, and Anchor MEDICATIONS Current Outpatient Medications Medication Sig phenazopyridine (PYRIDIUM) 200 mg tablet Take 1 tablet by mouth three times a day as needed. cyclobenzaprine (FLEXERIL) 10 mg tablet Take 1 tablet by mouth two times a day as needed for musclespasm. phenazopyridine (PYRIDIUM) 200 mg tablet Take 1 tablet by mouth three times a day as needed. glucosamine/msm/chondroit sulf (GLUCOSAMINE [id number] ORAL) cyclobenzaprine (FLEXERIL) 10 mg tablet Take 1 tablet by mouth three times a day as needed for muscle spasm. benzonatate (TESSALON PERLE) 100 mg capsule Take 1 capsule by mouth three times a day as needed forcough. (Patient not taking: Reported on 02/21/2024) tirzepatide (MOUNJARO) 15 mg/0.5 mL pen injector Inject 15 mg subcutaneously one time a week. meloxicam (MOBIC) 15 mg tablet Take 1 tablet by mouth once daily. simvastatin (ZOCOR) 10 mg tablet Take 1 tablet by mouth daily at bedtime. EPINEPHrine (EPIPEN) 0.3 mg/0.3 mL auto-injector 1 INJECTION NEEDED IN THIGH pantoprazole DR (PROTONIX) 40 mg tablet Take 1 tablet by mouth once daily. hydroCHLOROthiazide 12.5 mg tablet Take 1 tablet by mouth once daily. metFORMIN (GLUCOPHAGE) 500 mg tablet Take 1 tablet by mouth two times a day with meals. . losartan (COZAAR) 50 mg tablet Take two tablets daily Blood-Glucose Meter (CONTOUR NEXT ONE METER) Check blood sugar twice daily and as needed blood sugar diagnostic (CONTOUR NEXT TEST STRIPS) test strip Check blood sugar twice a day and as needed Cholecalciferol, Vitamin D3, 25 mcg (1,000 unit) [...] mouth twice daily. No current facility-administered medications for this visit. Medications and allergies reviewed by this provider. SOCIAL HISTORY Social History Tobacco Use Smoking status: Former Current packs/day: 0.00 Average packs/day: 0.5 packs/day for 10.0 years (5.0 ttl pk-yrs) Types: Cigarettes Start date: 04/29/2001 Quit date: 04/30/2011 Years since quittin.0 Smokeless tobacco: Never Vaping Use Vaping status: Never Used Substance Use Topics Alcohol use: Not Currently Alcohol/week: 6.0 standard drinks of alcohol Types: 6 Glasses of wine per week Drug use: No REVIEW OF SYSTEMS All other reviewed and negative other than HPI. OBJECTIVE: BP 134/82 Pulse 81 Resp 18 Wt 100.1 kg (220 lb 9.6 oz) SpO2 96% BMI 34.55 kg/m . Vital signs reviewed by this provider. APPEARANCE Well appearing, alert, in no acute distress, well-hydrated, well nourished. EYES conjunctiva and sclera normal. HEART RRR with normal S1 and S2, no murmurs, no gallops, no JVD appreciated LUNG clear to auscultation. No wheezes, rhonchi or rales EXTREMITIES Extremities normal, No deformities, No skin discoloration, and No edema SKIN Skin color, texture, turgor normal, no suspicious rashes or lesions to exposed skin Latest Ref Rng 10/07/2023 Protein, Total 6.3 - 8.0 g/dL 7.0 Albumin 3.9 - 4.9 g/dL 4.4 Calcium 8.5 - 10.2 mg/dL 9.5 Bilirubin, Total 0.2 - 1.3 mg/dL 0.2 Alkaline Phosphatase 34 - 123 U/L 81 AST 13 - 35 U/L 16 ALT 7 - 38 U/L 15 Glucose 74 - 99 mg/dL 95 BUN 7 - 21 mg/dL 11 Creatinine 0.58 - 0.96 mg/dL 0.60 Sodium 136 - 144 mmol/L 141 Potassium 3.7 - 5.1 mmol/L 4.6 Chloride 98 - 107 mmol/L 104 CO2 22 - 30 mmol/L 27 Anion Gap 8 - 15 mmol/L 10 eGFR >=60 mL/min/1.73m 106 Hemoglobin A1C 4.3 - 5.6 % 4.9 Estimated Average Glucose mg/dL 94 Depression Screening Never done BP Controlled (<130/80) Never done Dilated Retinal Exam due on 12/25/2021 Urine Albumin:Creatinine Ratio due on 02/15/2024 LDL Cholesterol due on 02/15/2024 HbA1C due on 04/08/2024 Mammogram Screening due on 09/11/2024 Influenza Vaccine(1) due on 08/27/2024 Anxiety Screening due on 10/06/2024 Covid-19 Vaccine( season) due on 04/30/2025 Pneumococcal Vaccine: 50+(1 of 2 - PCV) due on 04/30/2025 Diabetic Foot Exam due on 10/06/2024 Annual PCP Team Chronic Disease Visit due on 04/30/2025 Colorectal Cancer Screening due on 09/23/2031 DTaP,Tdap,Td Vaccine(3 - Td or Tdap) due on 09/05/2032 Hepatitis B Vaccine Completed Shingrix Vaccine Completed Cervical Cancer Screening Discontinued Hepatitis C Screening Discontinued HIV Screening Discontinued ASSESSMENT/PLAN: 1. Diabetes mellitus type II (HCC) - ICD9: 250.00, ICD10: E11.9 (primary diagnosis) - Control undetermined, due for labs - Continue current medications - Statin prescribed - simvastatin - Blood glucose monitoring on a once daily schedule - Counseled on healthy diet and regular exercise - continue to work on weight loss - Follow up in 6 months, sooner should any other issues arise. - HEMOGLOBIN A1C - ALBUMIN/CREATININE RATIO, URINE 2. Hyperlipidemia, unspecified hyperlipidemia type - ICD9: 272.4, ICD10: E78.5 - Control undetermined, due for labs - Continue current medications - Counseled on healthy diet and regular exercise - Follow up in 6 months, sooner should any other issues arise. - continue to work on weight loss - LIPID PANEL BASIC 3. Primary hypertension - ICD9: 401.9, ICD10: I10 - Controlled - Continue current medications - Recommend home blood pressure monitoring, to bring results to next visit - Encouraged sodium restriction, DASH or Mediterranean diet - Recommend regular aerobic exercise - Follow up in 6 months for hypertension visit 4. Gastroesophageal reflux disease, unspecified whether esophagitis present - ICD9: 530.81, ICD10: K21.9 - stable on current regime Karla Ocampo APRN.CNP Prescription instructions reviewed with patient as applicable. Patient advised if symptoms do not improve or if symptoms worsen sooner, to contact their primary care physician. Potential red flag symptoms discussed with the patient. Reviewed appropriate action plan to take if red flag symptoms occur. Patient agreeable to treatment plan. Medical Decision Making: Problems: Moderate: 2+ stable chronic illnesses Data: Unique test(s) ordered: 3+ Medical Decision Making Level: 4 - Moderate [facility] NoteHNO ID: [id number] Author: KARLA OCAMPO APRN.CNP Service: ? Author Type: Nurse Practitioner Type: Progress Notes Filed: 04/11/2024 14:58 Note Text: Chief Complaint Patient presents with: UTI HPI Fantasma Hoyt is a 53 year old female who presents here today for UTI. Patient was seen 03/12/2024 for UTI. Culture was negative. Completed antibiotic course and felt better until Tuesday when she started with burning, pressure and frequency Denies abdominal pain, back pain, nausea, vomiting or hematuria. Latest Ref Rng 04/11/2024 GLUCOSE UA (POCT) Negative mg/dL Negative BILIRUBIN UA (POCT) Negative Negative KETONE UA (POCT) Negative mg/dL Negative SPECIFIC GRAVITY UA (POCT) 1.005 - 1.030 >=1.030 HEMOGLOBIN/BLOOD UA (POCT) Negative Trace-intact ! PH UA (POCT) 4.5 - 8.0 5.5 PROTEIN UA (POCT) Negative mg/dL Negative UROBILINOGEN UA (POCT) Normal E.U./dL 0.2 NITRITE UA (POCT) Negative Negative LEUKOCYTES UA (POCT) Negative Small ! COLOR UA (POCT) Yellow CLARITY UA (POCT) Clear Legend: ! Abnormal Past medical history, appointments, medications, allergies reviewed. Previous Medical History PAST MEDICAL HISTORY Diagnosis Date Acute meniscal tear of left knee 2013 s/p repair Arthritis of left shoulder region mild DDD (degenerative disc disease), cervical DDD (degenerative disc disease), lumbar [facility] Jonathan Diabetes mellitus type II (HCC) Endometriosis GERD (gastroesophageal reflux disease) Hot flashes Hyperlipidemia Hypertension Labral tear of hip, degenerative left hip, Seeing ortho Obesity Plantar fasciitis of right foot 2013 s/p plantar fasciotomy S/P hysterectomy LSO Seasonal allergies Uterine fibroid s/p hysterectomy Previous [...] SURGICAL HISTORY OF Right 2016 meniscal tear PAST SURGICAL HISTORY OF 11/2022 Dr. Christiansen-Bladder Sling PAST SURGICAL HISTORY OF 08/19/2023 panniculectomy REDUCTION OF LARGE BREAST 07/2022 SCOPE, PLANTAR FASCIOTOMY Right 2014 Family History FAMILY HISTORY Problem Relation Age of Onset Hypertension Mother Heart Failure Mother 64 Heart Mother stents Hypertension Father Coronary Artery Disease Father 59 [place] in 2010- LDa Thyroid Sister Thyroid Sister Heart Maternal Grandmother Rheumatologic disease Paternal Grandmother arthritis Patient Allergies ALLERGIES Allergen Reactions Codeine Anaphylaxis Contrast Dye Anaphylaxis Shellfish Containin* GI Upset Squash GI Upset Sulfa Dyne Anaphylaxis Anchor GI Upset Current Medications Current Outpatient Medications on File Prior to Visit Medication Sig cyclobenzaprine (FLEXERIL) 10 mg tablet Take 1 tablet by mouth two times a day as needed for muscle spasm. phenazopyridine (PYRIDIUM) 200 mg tablet Take 1 tablet by mouth three times a day as needed. glucosamine/msm/chondroit sulf (GLUCOSAMINE [id number] ORAL) cyclobenzaprine (FLEXERIL) 10 mg tablet Take 1 tablet by mouth three times a day as needed for muscle spasm. benzonatate (TESSALON PERLE) 100 mg capsule Take 1 capsule by mouth three times a day as needed for cough. (Patient not taking: Reported on 02/21/2024) tirzepatide (MOUNJARO) 15 mg/0.5 mL pen injector Inject 15 mg subcutaneously one time a week. meloxicam (MOBIC) 15 mg tablet Take 1 tablet by mouth once daily. simvastatin (ZOCOR) 10 mg tablet Take 1 tablet by mouth daily at bedtime. EPINEPHrine (EPIPEN) 0.3 mg/0.3 mL auto-injector 1 INJECTION NEEDED IN THIGH pantoprazole DR (PROTONIX) 40 mg tablet Take 1 tablet by mouth once daily. hydroCHLOROthiazide 12.5 mg tablet Take 1 tablet by mouth once daily. metFORMIN (GLUCOPHAGE) 500 mg tablet Take 1 tablet by mouth two times a day with meals. . losartan (COZAAR) 50 mg tablet Take two tablets daily Blood-Glucose Meter (CONTOUR NEXT ONE METER) Check blood sugar twice daily and as needed blood sugar diagnostic (CONTOUR NEXT TEST STRIPS) test strip Check blood sugar twice a day and as needed Cholecalciferol, Vitamin D3, 25 mcg (1,000 unit) [...] medications on file prior to visit. Social (more content not included)...[facility]02-12-2025 History of Present illness Narrative* Podlogar, AMISH Acosta.[employer] - 04/11/2024 2:18 PM EST Chief Complaint Patient presents with: UTI HPI Fantasma Hoyt is a 53 year old female who presents here today for UTI. Patient was seen 03/12/2024 for UTI. Culture was negative. Completed antibiotic course and felt better until Tuesday when she started with burning, pressure and frequency Denies abdominal pain, back pain, nausea, vomiting or hematuria. Latest Ref Rng 04/11/2024 GLUCOSE UA (POCT) Negative mg/dL Negative BILIRUBIN UA (POCT) Negative Negative KETONE UA (POCT) Negative mg/dL Negative SPECIFIC GRAVITY UA (POCT) 1.005 - 1.030 >=1.030 HEMOGLOBIN/BLOOD UA (POCT) Negative Trace-intact ! PH UA (POCT) 4.5 - 8.0 5.5 PROTEIN UA (POCT) Negative mg/dL Negative UROBILINOGEN UA (POCT) Normal E.U./dL 0.2 NITRITE UA (POCT) Negative Negative LEUKOCYTES UA (POCT) Negative Small ! COLOR UA (POCT) Yellow CLARITY UA (POCT) Clear Legend: ! Abnormal Past medical history, appointments, medications, allergies reviewed. Previous Medical History PAST MEDICAL HISTORY Diagnosis Date Acute meniscal tear of left knee 2013 s/p repair Arthritis of left shoulder region mild DDD (degenerative disc disease), cervical DDD (degenerative disc disease), lumbar [facility] Castillo Diabetes mellitus type II (HCC) Endometriosis GERD (gastroesophageal reflux disease) Hot flashes Hyperlipidemia Hypertension Labral tear of hip, degenerative left hip, Seeing ortho Obesity Plantar fasciitis of right foot 2013 s/p plantar fasciotomy S/P hysterectomy LSO Seasonal allergies Uterine fibroid s/p hysterectomy Previous [...] SURGICAL HISTORY OF Right 2016 meniscal tear PAST SURGICAL HISTORY OF 11/2022 Dr. Christiansen-Bladder Sling PAST SURGICAL HISTORY OF 08/19/2023 panniculectomy REDUCTION OF LARGE BREAST 07/2022 SCOPE, PLANTAR FASCIOTOMY Right 2013 Family History FAMILY HISTORY Problem Relation Age of Onset Hypertension Mother Heart Failure Mother 64 Heart Mother stents Hypertension Father Coronary Artery Disease Father 59 [place] in 2010- LDa Thyroid Sister Thyroid Sister Heart Maternal Grandmother Rheumatologic disease Paternal Grandmother arthritis Patient Allergies ALLERGIES Allergen Reactions Codeine Anaphylaxis Contrast Dye Anaphylaxis Shellfish Containin* GI Upset Squash GI Upset Sulfa Dyne Anaphylaxis Anchor GI Upset Current Medications Current Outpatient Medications on File Prior to Visit Medication Sig cyclobenzaprine (FLEXERIL) 10 mg tablet Take 1 tablet by mouth two times a day as needed for musclespasm. phenazopyridine (PYRIDIUM) 200 mg tablet Take 1 tablet by mouth three times a day as needed. glucosamine/msm/chondroit sulf (GLUCOSAMINE [id number] ORAL) cyclobenzaprine (FLEXERIL) 10 mg tablet Take 1 tablet by mouth three times a day as needed for muscle spasm. benzonatate (TESSALON PERLE) 100 mg capsule Take 1 capsule by mouth three times a day as needed forcough. (Patient not taking: Reported on 02/21/2024) tirzepatide (MOUNJARO) 15 mg/0.5 mL pen injector Inject 15 mg subcutaneously one time a week. meloxicam (MOBIC) 15 mg tablet Take 1 tablet by mouth once daily. simvastatin (ZOCOR) 10 mg tablet Take 1 tablet by mouth daily at bedtime. EPINEPHrine (EPIPEN) 0.3 mg/0.3 mL auto-injector 1 INJECTION NEEDED IN THIGH pantoprazole DR (PROTONIX) 40 mg tablet Take 1 tablet by mouth once daily. hydroCHLOROthiazide 12.5 mg tablet Take 1 tablet by mouth once daily. metFORMIN (GLUCOPHAGE) 500 mg tablet Take 1 tablet by mouth two times a day with meals. . losartan (COZAAR) 50 mg tablet Take two tablets daily Blood-Glucose Meter (CONTOUR NEXT ONE METER) Check blood sugar twice daily and as needed blood sugar diagnostic (CONTOUR NEXT TEST STRIPS) test strip Check blood sugar twice a day and as needed Cholecalciferol, Vitamin D3, 25 mcg (1,000 unit) [...] Social History Tobacco Use Smoking status: Former Current packs/day: 0.00 Average packs/day: 0.5 packs/day for 10.0 years (5.0 ttl pk-yrs) Types: Cigarettes Start date: 04/29/2001 Quit date: 04/30/2011 Years since quittin.9 Smokeless tobacco: Never Vaping Use Vaping status: Never Used Substance Use Topics Alcohol use: Not Currently Alcohol/week: 6.0 standard drinks of alcohol Types: 6 Glasses of wine per week Drug use: No Review of Symptoms REVIEW OF SYSTEMS See HPI EXAM: BP 126/82 Pulse 76 Temp 36.2 C (97.1 F) Resp 16 Wt 98.4 kg (217 lb) BMI 33.99 kg/m General Appearance: Well appearing, alert, in no acute distress, well-hydrated, well nourished.. Skin: Skin color, texture, turgor normal, no suspicious rashes or lesions. Back:No CVA tenderness Heart: RRR without murmur, gallop, or rubs. No ectopy. Lungs: Lungs clear to auscultation, No wheezing, rales or rhonchi Abdomen: Normal abdominal exam. Latest Ref Rng 03/12/2024 GLUCOSE UA (POCT) Negative mg/dL Negative BILIRUBIN UA (POCT) Negative Negative KETONE UA (POCT) Negative mg/dL Negative SPECIFIC GRAVITY UA (POCT) 1.005 - 1.030 >=1.030 HEMOGLOBIN/BLOOD UA (POCT) Negative Moderate ! PH UA (POCT) 4.5 - 8.0 6.5 PROTEIN UA (POCT) Negative mg/dL 30 ! UROBILINOGEN UA (POCT) Normal E.U./dL 0.2 NITRITE UA (POCT) Negative Negative LEUKOCYTES UA (POCT) Negative Small ! COLOR UA (POCT) Yellow CLARITY UA (POCT) Clear Culture 10,000 -<50,000 CFU/ml Normal urogenital pierre Legend: ! Abnormal Health Maintenance List Depression Screening Never done BP Controlled (<130/80) Never done Pneumococcal Vaccine: 50+(1 of 2 - PCV) Never done Dilated Retinal Exam due on 12/25/2021 Influenza Vaccine(1) due on 10/30/2023 Covid-19 Vaccine(2023- season) due on 10/30/2023 Urine Albumin:Creatinine Ratio due on 02/15/2024 LDL Cholesterol due on 02/15/2024 HbA1C due on 04/08/2024 Mammogram Screening due on 09/11/2024 Anxiety Screening due on 10/06/2024 Diabetic Foot Exam due on 10/06/2024 Annual PCP Team Chronic Disease Visit due on 04/02/2025 Colorectal Cancer Screening due on 09/23/2031 DTaP,Tdap,Td Vaccine(3 - Td or Tdap) due on 09/05/2032 Hepatitis B Vaccine Completed Shingrix Vaccine Completed Cervical Cancer Screening Discontinued Hepatitis C Screening Discontinued HIV Screening Discontinued ASSESSMENT/PLAN: 1. UTI symptoms - ICD9: 788.99, ICD10: R39.9 - no red flag symptoms or exam findings - red flag symptoms discussed, verbalizes understanding - UA DIP, URINE (POC) - PHENAZOPYRIDINE 200 MG TABLET - NITROFURANTOIN MONOHYDRATE & MACROCRYSTAL 100 MG ORAL CAP - BACTERIAL CULTURE, URINE - follow-up if symptoms fail to improve to ER with red flag symptoms Karla Ocampo APRN.[employer] Prescription instructions reviewed with patient as applicable. Patient advised if symptoms do not improve or if symptoms worsen sooner, to contact their primary care physician. Potential red flag symptoms discussed with the patient. Reviewed appropriate action plan to take if red flag symptoms occur. Patient agreeable to treatment plan. Medical Decision Making: Problems: Low: Acute, uncomplicated illness or injury Data: Unique test(s) ordered: 2 Risk: Moderate: Drug management Medical Decision Making Level: 3 - Low [facility] Telephone encounter Note * Telephone Encounter - Karla Ocampo APRN.CNP - 04/11/2024 10:37 AM EST Reviewed. Karla Ocampo APRN.DEEPALI [facility]02-[facility] Miscellaneous Notes* Telephone Encounter - Karla Ocampo APRN.CNP - 04/11/2024 10:37 AM EST Reviewed. Karla Ocampo APRN.DEEPALI * Telephone Encounter - Lyn Winkler LPN - 04/11/2024 10:13 AM EST Phoned patient and she is agreeable but reported she was in training until after 1 pm. Offered available opening's on Karla's schedule and she accepted 2:20 pm slot. Lyn Winkler LPN * Telephone Encounter - Antonio Hui MD - 04/11/2024 10:08 AM EST Recommend repeat OV to recheck UA and send culture if needed. I have openings today [facility] Telephone encounter Note * Telephone Encounter - Lyn Winkler LPN - 04/11/2024 10:13 AM EST Phoned patient and she is agreeable but reported she was in training until after 1 pm. Offered available opening's on Karla's schedule and she accepted 2:20 pm slot. Lyn Winkler LPN [facility]02-12-[facility] Telephone encounter Note* Telephone Encounter - Antonio Hui MD - 04/11/2024 10:08 AM EST Recommend repeat OV to recheck UA and send culture if needed. I have openings today [facility]02-03-2025 NoteHNO ID: [id number] Author: ANTONIO HUI MD Service: ? Author Type: Physician Type: Progress Notes Filed: 04/02/2024 11:33 Note Text: Chief Complaint Patient presents with: Pain (Shoulder Pain): X 1 month HPI Fantasma Hoyt is a 53 year old female who presents here today for Above Complaints. Patient complaining of left posterior shoulder pain with occasional radiation down her left arm to her fingertips which started 1 month ago. Described as constant ache, currently 7/10. Exacerbated with reaching above her head, lifting, putting purse on her shoulder. Treating with icy/hot and got a massage which helps temporarily. On meloxicam daily without improvement. Admits to limited ROM. Denies neck pain, swelling, redness, bruising. Notes that she did slip and fall while shoveling snow about 1 month ago. Landed on her backside. Does not remember injuring her shoulder. Past medical history, appointments, medications, allergies reviewed. Previous Medical History PAST MEDICAL HISTORY Diagnosis Date Acute meniscal tear of left knee 2013 s/p repair DDD (degenerative disc disease), cervical DDD (degenerative disc disease), lumbar [facility] Castillo Diabetes mellitus type II (HCC) Endometriosis GERD (gastroesophageal reflux disease) Hot flashes Hyperlipidemia Hypertension Labral tear of hip, degenerative left hip, Seeing ortho Obesity Plantar fasciitis of right foot 2013 s/p plantar fasciotomy S/P hysterectomy LSO Seasonal allergies Uterine fibroid s/p hysterectomy Previous [...] SURGICAL HISTORY OF Right 2016 meniscal tear PAST SURGICAL HISTORY OF 11/2022 Dr. Christiansen-Bladder Sling PAST SURGICAL HISTORY OF 08/19/2023 panniculectomy REDUCTION OF LARGE BREAST 07/2022 SCOPE, PLANTAR FASCIOTOMY Right 2013 Family History FAMILY HISTORY Problem Relation Age of Onset Hypertension Mother Heart Failure Mother 64 Heart Mother stents Hypertension Father Coronary Artery Disease Father 59 [place] in 2009- Thyroid Sister Thyroid Sister Heart Maternal Grandmother Rheumatologic disease Paternal Grandmother arthritis Patient Allergies ALLERGIES Allergen Reactions Codeine Anaphylaxis Contrast Dye Anaphylaxis Shellfish Containin* GI Upset Squash GI Upset Sulfa Dyne Anaphylaxis Anchor GI Upset Current Medications Current Outpatient Medications on File Prior to Visit Medication Sig glucosamine/msm/chondroit sulf (GLUCOSAMINE [id number] ORAL) cyclobenzaprine (FLEXERIL) 10 mg tablet Take 1 tablet by mouth three times a day as needed for muscle spasm. tirzepatide (MOUNJARO) 15 mg/0.5 mL pen injector Inject 15 mg subcutaneously one time a week. meloxicam (MOBIC) 15 mg tablet Take 1 tablet by mouth once daily. simvastatin (ZOCOR) 10 mg tablet Take 1 tablet by mouth daily at bedtime. EPINEPHrine (EPIPEN) 0.3 mg/0.3 mL auto-injector 1 INJECTION NEEDED IN THIGH pantoprazole DR (PROTONIX) 40 mg tablet Take 1 tablet by mouth once daily. hydroCHLOROthiazide 12.5 mg tablet Take 1 tablet by mouth once daily. metFORMIN (GLUCOPHAGE) 500 mg tablet Take 1 tablet by mouth two times a day with meals. . losartan (COZAAR) 50 mg [...] D ORAL) Take by mouth twice daily. phenazopyridine (PYRIDIUM) 200 mg tablet Take 1 tablet by mouth three times a day as needed. benzonatate (TESSALON PERLE) 100 mg capsule Take 1 capsule by mouth three times a day as needed for cough. (Patient not taking: Reported on 02/21/2024) Blood-Glucose Meter (CONTOUR NEXT ONE METER) Check blood sugar twice daily and as needed blood sugar diagnostic (CONTOUR NEXT TEST STRIPS) test strip Check blood sugar twice a day and as needed No current facility-administered medications on file prior to visit. Social History Social History Tobacco Use Smoking status: Former Current packs/day: 0.00 Average packs/day: 0.5 packs/day for 10.0 years (5.0 ttl pk-yrs) Types: Cigarettes Start date: 04/29/2001 Quit date: 04/30/2011 Years since quittin.9 Smokeless tobacco: Never Vaping Use V (more content not included)...[facility]02-03[facility] History of Present illness Narrative* Antonio Hui MD - 04/02/2024 10:02 AM EST Chief Complaint Patient presents with: Pain (Shoulder Pain): X 1 month HPI Fantasma Hoyt is a 53 year old female who presents here today for Above Complaints. Patient complaining of left posterior shoulder pain with occasional radiation down her left arm to her fingertips which started 1 month ago. Described as constant ache, currently 7/10. Exacerbated with reaching above her head, lifting, putting purse on her shoulder. Treating with icy/hot and got a massage which helps temporarily. On meloxicam daily without improvement. Admits to limited ROM. Denies neck pain, swelling, redness, bruising. Notes that she did slip and fall while shoveling snow about 1 month ago. Landed on her backside. Does not remember injuring her shoulder. Past medical history, appointments, medications, allergies reviewed. Previous Medical History PAST MEDICAL HISTORY Diagnosis Date Acute meniscal tear of left knee 2013 s/p repair DDD (degenerative disc disease), cervical DDD (degenerative disc disease), lumbar [facility] Castillo Diabetes mellitus type II (HCC) Endometriosis GERD (gastroesophageal reflux disease) Hot flashes Hyperlipidemia Hypertension Labral tear of hip, degenerative left hip, Seeing ortho Obesity Plantar fasciitis of right foot 2013 s/p plantar fasciotomy S/P hysterectomy LSO Seasonal allergies Uterine fibroid s/p hysterectomy Previous [...] SURGICAL HISTORY OF Right 2016 meniscal tear PAST SURGICAL HISTORY OF 11/2022 Dr. Christiansen-Bladder Sling PAST SURGICAL HISTORY OF 08/19/2023 panniculectomy REDUCTION OF LARGE BREAST 07/2022 SCOPE, PLANTAR FASCIOTOMY Right 2013 Family History FAMILY HISTORY Problem Relation Age of Onset Hypertension Mother Heart Failure Mother 64 Heart Mother stents Hypertension Father Coronary Artery Disease Father 59 [place] in 2009- LDa Thyroid Sister Thyroid Sister Heart Maternal Grandmother Rheumatologic disease Paternal Grandmother arthritis Patient Allergies ALLERGIES Allergen Reactions Codeine Anaphylaxis Contrast Dye Anaphylaxis Shellfish Containin* GI Upset Squash GI Upset Sulfa Dyne Anaphylaxis Anchor GI Upset Current Medications Current Outpatient Medications on File Prior to Visit Medication Sig glucosamine/msm/chondroit sulf (GLUCOSAMINE [id number] ORAL) cyclobenzaprine (FLEXERIL) 10 mg tablet Take 1 tablet by mouth three times a day as needed for muscle spasm. tirzepatide (MOUNJARO) 15 mg/0.5 mL pen injector Inject 15 mg subcutaneously one time a week. meloxicam (MOBIC) 15 mg tablet Take 1 tablet by mouth once daily. simvastatin (ZOCOR) 10 mg tablet Take 1 tablet by mouth daily at bedtime. EPINEPHrine (EPIPEN) 0.3 mg/0.3 mL auto-injector 1 INJECTION NEEDED IN THIGH pantoprazole DR (PROTONIX) 40 mg tablet Take 1 tablet by mouth once daily. hydroCHLOROthiazide 12.5 mg tablet Take 1 tablet by mouth once daily. metFORMIN (GLUCOPHAGE) 500 mg tablet Take 1 tablet by mouth two times a day with meals. . losartan (COZAAR) 50 mg [...] D ORAL) Take by mouth twice daily. phenazopyridine (PYRIDIUM) 200 mg tablet Take 1 tablet by mouth three times a day as needed. benzonatate (TESSALON PERLE) 100 mg capsule Take 1 capsule by mouth three times a day as needed forcough. (Patient not taking: Reported on 02/21/2024) Blood-Glucose Meter (CONTOUR NEXT ONE METER) Check blood sugar twice daily and as needed blood sugar diagnostic (CONTOUR NEXT TEST STRIPS) test strip Check blood sugar twice a day and as needed No current facility-administered medications on file prior to visit. Social History Social History Tobacco Use Smoking status: Former Current packs/day: 0.00 Average packs/day: 0.5 packs/day for 10.0 years (5.0 ttl pk-yrs) Types: Cigarettes Start date: 04/29/2001 Quit date: 04/30/2011 Years since quittin.9 Smokeless tobacco: Never Vaping Use Vaping status: Never Used Substance Use Topics Alcohol use: Not Currently Alcohol/week: 6.0 standard drinks of alcohol Types: 6 Glasses of wine per week Drug use: No Review of Symptoms REVIEW OF SYSTEMS See HPI EXAM: BP 136/82 Pulse 98 Resp 16 Wt 98 kg (216 lb) SpO2 94% BMI 33.83 kg/m General Appearance: Well appearing, alert, in no acute distress, well-hydrated, well nourished.. Skin: Skin color, texture, turgor normal, no suspicious rashes or lesions. Shoulder: Location: Left posterior. Redness: No. Warmth: No. Tenderness to palpation: Yes. Swelling: No. Range of motion: WNL. Empty can test: positive Nick: positive Health Maintenance List Depression Screening Never done BP Controlled (<130/80) Never done Pneumococcal Vaccine: 50+(1 of 2 - PCV) Never done Dilated Retinal Exam due on 12/25/2021 Influenza Vaccine(1) due on 10/30/2023 Covid-19 Vaccine( season) due on 10/30/2023 Urine Albumin:Creatinine Ratio due on 02/15/2024 LDL Cholesterol due on 02/15/2024 Mammogram Screening due on 09/11/2024 Anxiety Screening due on 10/06/2024 HbA1C due on 04/08/2024 Diabetic Foot Exam due on 10/06/2024 Annual PCP Team Chronic Disease Visit due on 10/06/2024 Colorectal Cancer Screening due on 09/23/2031 DTaP,Tdap,Td Vaccine(3 - Td or Tdap) due on 09/05/2032 Hepatitis B Vaccine Completed Shingrix Vaccine Completed Cervical Cancer Screening Discontinued Hepatitis C Screening Discontinued HIV Screening Discontinued ASSESSMENT/PLAN: 1. Acute pain of left shoulder - ICD9: 719.41, ICD10: M25.512 Suspect impingement. Obtain xray today. Discussed rest, ice/heat, NSAIDs, and muscle relaxer as ordered. Given exercises for home. Refer to PT if not improving in 2-3 weeks. - XR SHOULDER GENERAL 3V OR MORE AP/TRUE AP/OTHER LEFT - CYCLOBENZAPRINE 10 MG TABLET - CONSULT TO PHYSICAL THERAPY Antonio Hui MD [facility] Telephone encounter Note * Telephone Encounter - Kallie Guevara MA - 03/13/2024 2:21 PM EST Patient given results and verbalized understanding of instructions given. Kallie Guevara MA [facility]01-14-2025 Miscellaneous Notes* Telephone Encounter - Kallie Guevara MA - 03/13/2024 2:21 PM EST Patient given results and verbalized understanding of instructions given. Kallie Guevara MA * Telephone Encounter - Kamryn Duran PA - 03/13/2024 1:16 PM EST Please let patient know urine culture reveals no UTI. She may continue antibiotic if it is helping with symptoms. needs close follow-up with PCP to ensure resolution of blood in the urine [facility] Telephone encounter Note * Telephone Encounter - Kamryn Duran PA - 03/13/2024 1:16 PM EST Please let patient know urine culture reveals no UTI. She may continue antibiotic if it is helping with symptoms. needs close follow-up with PCP to ensure resolution of blood in the urine [facility]01[facility] Telephone encounter Note* Telephone Encounter - Kallie Guevara MA - 03/12/2024 11:01 AM EST Left detailed message on a secured voicemail. Kallie Guevara MA [facility]01-13-2025 Miscellaneous Notes* Telephone Encounter - Kallie Guevara MA - 03/12/2024 11:01 AM EST Left detailed message on a secured voicemail. Kallie Guevara MA * Telephone Encounter - Kamryn Duran PA - 03/12/2024 10:28 AM EST Sent in. If taking this, do not take Azo [id number] * Telephone Encounter - Chrissie Sidhu RN - 03/12/2024 10:17 AM EST Patient reports she was evaluated by provider CARLOS Rodriguez at [facility] this morning and it was pt's understanding that Pyridium (or other) was going to be sent to her pharmacy along with her Macrobid, to help her bladder spasms. Pt asking if provider can send it to [facility]? She is at pharmacy now. Please call patient back with an update. [phone] Chrissie Sidhu RN [facility] Telephone encounter Note * Telephone Encounter - Kamryn Duran PA - 03/12/2024 10:28 AM EST Sent in. If taking this, do not take Azo [id number] [facility]01[facility] Telephone encounter Note* Telephone Encounter - Chrissie Sidhu RN - 03/12/2024 10:17 AM EST Patient reports she was evaluated by provider CARLOS Rodriguez at [facility] this morning and it was pt's understanding that Pyridium (or other) was going to be sent to her pharmacy along with her Macrobid, to help her bladder spasms. Pt asking if provider can send it to [facility]? She is at pharmacy now. Please call patient back with an update. [phone] Chrissie Sidhu RN [facility]01-[facility]25 NoteHNO ID: [id number] Author: KAMRYN DURAN PA Service: ? Author Type: Physician Practice Advisor Type: Progress Notes Filed: 03/12/2024 09:49 Note Text: This note was created using [employer]. Subjective Fantasma Hoyt is a 53 year old female. HPI 53-year-old female presents for UTI symptoms. Patient states this morning she started getting burning with urination, urgency and frequency. No abdominal pain, back pain, fevers, vomiting. No vaginal discharge. She has had UTIs in the past and this feels similar. No recent. Not seen any blood in the urine. No other complaint PAST MEDICAL HISTORY Diagnosis Date Acute meniscal tear of left knee 2013 s/p repair DDD (degenerative disc disease), cervical DDD (degenerative disc disease), lumbar [facility] Castillo Diabetes mellitus type II (HCC) Endometriosis GERD (gastroesophageal reflux disease) Hot flashes Hyperlipidemia Hypertension Labral tear of hip, degenerative left hip, Seeing ortho Obesity Plantar fasciitis of right foot 2013 s/p plantar fasciotomy S/P hysterectomy LSO Seasonal allergies Uterine fibroid s/p hysterectomy PAST SURGICAL HISTORY Procedure Laterality Date COLONOSCOPY [...] SURGICAL HISTORY OF Right 2015 meniscal tear PAST SURGICAL HISTORY OF 11/2022 Dr. Christiansen-Bladder Sling PAST SURGICAL HISTORY OF 08/19/2023 panniculectomy REDUCTION OF LARGE BREAST 07/2022 SCOPE, PLANTAR FASCIOTOMY Right 2013 ALLERGIES Codeine, Contrast Dye, Shellfish Containing Products, Squash, Sulfa Dyne, and Anchor MEDICATIONS glucosamine/msm/chondroit sulf (GLUCOSAMINE [id number] ORAL) cyclobenzaprine (FLEXERIL) 10 mg tablet Take 1 tablet by mouth three times a day as needed for muscle spasm. tirzepatide (MOUNJARO) 15 mg/0.5 mL pen injector Inject 15 mg subcutaneously one time a week. meloxicam (MOBIC) 15 mg tablet Take 1 tablet by mouth once daily. simvastatin (ZOCOR) 10 mg tablet Take 1 tablet by mouth daily at bedtime. EPINEPHrine (EPIPEN) 0.3 mg/0.3 mL auto-injector 1 INJECTION NEEDED IN THIGH pantoprazole DR (PROTONIX) 40 mg tablet Take 1 tablet by mouth once daily. hydroCHLOROthiazide 12.5 mg tablet Take 1 tablet by mouth once daily. metFORMIN (GLUCOPHAGE) 500 mg tablet Take 1 tablet by mouth two times a day with meals. . losartan (COZAAR) 50 mg tablet Take two tablets daily Blood-Glucose Meter (CONTOUR NEXT ONE METER) Check blood sugar twice daily and as needed blood sugar diagnostic (CONTOUR NEXT TEST STRIPS) test strip Check blood sugar twice a day and as needed Cholecalciferol, Vitamin D3, 25 mcg (1,000 unit) [...] D ORAL) Take by mouth twice daily. nitrofurantoin monohydrate and macrocrystal (MACROBID) 100 mg capsule Take 1 capsule by mouth two times a day for 5 days. benzonatate (TESSALON PERLE) 100 mg capsule Take 1 capsule by mouth three times a day as needed for cough. (Patient not taking: Reported on 02/21/2024) FAMILY HISTORY Problem Relation Age of Onset Hypertension Mother Heart Failure Mother 64 Heart Mother stents Hypertension Father Coronary Artery Disease Father 59 [place] in 2009- Thyroid Sister Thyroid Sister Heart Maternal Grandmother Rheumatologic disease Paternal Grandmother arthritis Social History Tobacco Use Smoking status: Former Current packs/day: 0.00 Average packs/day: 0.5 packs/day for 10.0 years (5.0 ttl pk-yrs) Types: Cigarettes Start date: 04/29/2001 Quit date: 04/30/2011 Years since quittin.8 Smokeless tobacco: Never Vaping Use Vaping status: Never Used Substance Use Topics Alcohol use: Not Currently Alcohol/week: 6.0 standard drinks of alcohol Types: 6 Glasses of wine per week Drug use: No Review of Systems Constitutional: Negative for chills and fever. HENT: Negative for congestion, ear pain and sore throat. Respiratory: Negative for cough and shortness of breath. Cardiovascular: Negative for chest pain. Gastrointestinal: Negative for diarrhea and vomiting. Genitourinary: Positive for dysuria, frequency and urgency. Negative for decreased urine volume and dyspareunia. Objective BP 140/86 Pulse 95 Temp 36.1 ?C (96.9 ?F) Resp 20 Wt 98.7 kg (217 lb 9.5 oz) SpO2 97% BMI 34.08 k (more content not included)...[facility]01-[facility]25 History of Present illness Narrative* Kamryn Duran PA - 03/12/2024 9:47 AM EST This note was created using Huitongdariter. Subjective Fantasma Hoyt is a 53 year old female. HPI 53-year-old female presents for UTI symptoms. Patient states this morning she started getting burning with urination, urgency and frequency. No abdominal pain, back pain, fevers, vomiting. No vaginal discharge. She has had UTIs in the past and this feels similar. No recent. Not seen any blood in the urine. No other complaint PAST MEDICAL HISTORY Diagnosis Date Acute meniscal tear of left knee 2013 s/p repair DDD (degenerative disc disease), cervical DDD (degenerative disc disease), lumbar [facility] Castillo Diabetes mellitus type II (HCC) Endometriosis GERD (gastroesophageal reflux disease) Hot flashes Hyperlipidemia Hypertension Labral tear of hip, degenerative left hip, Seeing ortho Obesity Plantar fasciitis of right foot 2013 s/p plantar fasciotomy S/P hysterectomy LSO Seasonal allergies Uterine fibroid s/p hysterectomy PAST SURGICAL HISTORY Procedure Laterality Date COLONOSCOPY [...] SURGICAL HISTORY OF Right 2015 meniscal tear PAST SURGICAL HISTORY OF 11/2022 Dr. Christiansen-Bladder Sling PAST SURGICAL HISTORY OF 08/19/2023 panniculectomy REDUCTION OF LARGE BREAST 07/2022 SCOPE, PLANTAR FASCIOTOMY Right 2013 ALLERGIES Codeine, Contrast Dye, Shellfish Containing Products, Squash, Sulfa Dyne, and Anchor MEDICATIONS glucosamine/msm/chondroit sulf (GLUCOSAMINE [id number] ORAL) cyclobenzaprine (FLEXERIL) 10 mg tablet Take 1 tablet by mouth three times a day as needed for muscle spasm. tirzepatide (MOUNJARO) 15 mg/0.5 mL pen injector Inject 15 mg subcutaneously one time a week. meloxicam (MOBIC) 15 mg tablet Take 1 tablet by mouth once daily. simvastatin (ZOCOR) 10 mg tablet Take 1 tablet by mouth daily at bedtime. EPINEPHrine (EPIPEN) 0.3 mg/0.3 mL auto-injector 1 INJECTION NEEDED IN THIGH pantoprazole DR (PROTONIX) 40 mg tablet Take 1 tablet by mouth once daily. hydroCHLOROthiazide 12.5 mg tablet Take 1 tablet by mouth once daily. metFORMIN (GLUCOPHAGE) 500 mg tablet Take 1 tablet by mouth two times a day with meals. . losartan (COZAAR) 50 mg tablet Take two tablets daily Blood-Glucose Meter (CONTOUR NEXT ONE METER) Check blood sugar twice daily and as needed blood sugar diagnostic (CONTOUR NEXT TEST STRIPS) test strip Check blood sugar twice a day and as needed Cholecalciferol, Vitamin D3, 25 mcg (1,000 unit) [...] D ORAL) Take by mouth twice daily. nitrofurantoin monohydrate and macrocrystal (MACROBID) 100 mg capsule Take 1 capsule by mouth two times a day for 5 days. benzonatate (TESSALON PERLE) 100 mg capsule Take 1 capsule by mouth three times a day as needed forcough. (Patient not taking: Reported on 02/21/2024) FAMILY HISTORY Problem Relation Age of Onset Hypertension Mother Heart Failure Mother 64 Heart Mother stents Hypertension Father Coronary Artery Disease Father 59 [place] in 2010- LDa Thyroid Sister Thyroid Sister Heart Maternal Grandmother Rheumatologic disease Paternal Grandmother arthritis Social History Tobacco Use Smoking status: Former Current packs/day: 0.00 Average packs/day: 0.5 packs/day for 10.0 years (5.0 ttl pk-yrs) Types: Cigarettes Start date: 04/29/2001 Quit date: 04/30/2011 Years since quittin.8 Smokeless tobacco: Never Vaping Use Vaping status: Never Used Substance Use Topics Alcohol use: Not Currently Alcohol/week: 6.0 standard drinks of alcohol Types: 6 Glasses of wine per week Drug use: No Review of Systems Constitutional: Negative for chills and fever. HENT: Negative for congestion, ear pain and sore throat. Respiratory: Negative for cough and shortness of breath. Cardiovascular: Negative for chest pain. Gastrointestinal: Negative for diarrhea and vomiting. Genitourinary: Positive for dysuria, frequency and urgency. Negative for decreased urine volume anddyspareunia. Objective BP 140/86 Pulse 95 Temp 36.1 C (96.9 F) Resp 20 Wt 98.7 kg (217 lb 9.5 oz) SpO2 97% BMI34.08 kg/m Physical Exam Vitals and nursing note reviewed. Constitutional: General: She is not in acute distress. Appearance: Normal appearance. She is not toxic-appearing. HENT: Right Ear: Tympanic membrane and ear canal normal. Left Ear: Tympanic membrane and ear canal normal. Nose: Nose normal. Mouth/Throat: Mouth: Mucous membranes are moist. Eyes: Conjunctiva/sclera: Conjunctivae normal. Cardiovascular: Rate and Rhythm: Normal rate and regular rhythm. Pulmonary: Effort: Pulmonary effort is normal. Breath sounds: Normal breath sounds. Abdominal: General: Abdomen is flat. Palpations: Abdomen is soft. Tenderness: There is no abdominal tenderness. There is no right CVA tenderness, left CVA tenderness, guarding or rebound. Skin: General: Skin is warm and dry. Neurological: Mental Status: She is alert. Assessment and Plan ASSESSMENT/PLAN: 1. Urinary frequency - ICD9: 788.41, ICD10: R35.0 acute - UA positive for piper esterase, hematuria, and proteinuria - Send urine for culture -Reviewed labs from November that were normal kidney function. - Begin treatment with Macrobid 100 mg BID for 5 days - Patient education for prevention given - UA DIP, URINE (POC) - BACTERIAL CULTURE, URINE Diagnosis and treatment plan were discussed and questions were answered to the patient's satisfaction. Pt acknowledged understanding of concepts and follow up plan. Specific signs and symptoms that would indicate the need for higher level of care were discussed in detail warranting prompt ER evaluation. CARLOS Caldwell [facility] Inst[facility]* Patient Instructions* Lis Roth APRN.CNP - 02/21/2024 11:25 AM EST Flexeril as ordered Ice Tylenol (generic acetaminophen) 500 mg-2 tabs every 8 hrs. as needed for pain * Prednisone 40 mg (2 tablets) per day for 5 days, take in morning or early in day * Do not NSAIDs during this 5 day course (ibuprofen, naproxen, Motrin, Aleve, Advil) Tylenol only during prednisone use * Follow up with primary care provider if no improvement with treatment * Seek medical care immediately, call 911, go to ER if you have chest pain, difficulty breathing, shortness of breath, inability to swallow. [facility]24 NoteHNO ID: [id number] Author: LIS ROTH APRN.DEEPALI Service: ? Author Type: Nurse Practitioner Type: Progress Notes Filed: 02/21/2024 11:28 Note Text: Subjective The history is provided by the patient. No sign language teacher was used. NIMESH Hoyt is a 53 year old female who presents today for CC of mid back pain that started 3 hours ago. She has used meloxicam without relief. BP 146/92 Pulse 102 Temp 36.1 ?C (97 ?F) Resp 18 Wt 95.5 kg (210 lb 8.6 oz) SpO2 100% BMI 32.98 kg/m? Social History Tobacco Use Smoking status: Former Current packs/day: 0.00 Average packs/day: 0.5 packs/day for 10.0 years (5.0 ttl pk-yrs) Types: Cigarettes Start date: 04/29/2001 Quit date: 04/30/2011 Years since quittin.8 Smokeless tobacco: Never Vaping Use Vaping status: Never Used Substance Use Topics Alcohol use: Not Currently Alcohol/week: 6.0 standard drinks of alcohol Types: 6 Glasses of wine per week Drug use: No PAST MEDICAL HISTORY Diagnosis Date Acute meniscal tear of left knee 2014 s/p repair DDD (degenerative disc disease), cervical DDD (degenerative disc disease), lumbar [facility]-Dr Castillo Diabetes mellitus type II (HCC) Endometriosis GERD (gastroesophageal reflux disease) Hot flashes Hyperlipidemia Hypertension Labral tear of hip, degenerative left hip, Seeing ortho Obesity Plantar fasciitis of right foot 2013 s/p plantar fasciotomy S/P hysterectomy LSO Seasonal allergies Uterine fibroid s/p hysterectomy I have confirmed and edited as necessary, the [facility] Review of Systems Constitutional: Negative for chills and fever. Musculoskeletal: Positive for back pain. Negative for joint pain and myalgias. Skin: Negative for itching and rash. All other systems reviewed and are negative. Objective Physical Exam Vitals and nursing note reviewed. Pulmonary: Effort: Pulmonary effort is normal. Musculoskeletal: Cervical back: Normal. Thoracic back: Spasms and tenderness present. No swelling, deformity, lacerations or bony tenderness. Normal range of motion. Lumbar back: Normal. Back: Comments: Area of pain along paraspinal Skin: General: Skin is warm and dry. Neurological: Mental Status: She is alert and oriented to person, place, and time. Psychiatric: Mood and Affect: Affect normal. ASSESSMENT/PLAN: 1. Upper back pain - ICD9: 724.5, ICD10: M54.9 Appears to be muscle strain - Ice for localized tenderness - Prednisone burst- see orders - Muscle relaxant- see orders - Patient given instructions use of medications as ordered Diagnosis and treatment plan were discussed and questions were answered to the patient's satisfaction. Pt acknowledged understanding of concepts and follow up plan. Specific signs and symptoms that would indicate the need for higher level of care were discussed in detail warranting prompt ER evaluation. Lis oRth APRN.[facility] History of Present illness Narrative* Lis Roth APRN.DEEPALI - 02/21/2024 11:23 AM EST Images from the original note were not included. Subjective The history is provided by the patient. No sign language teacher was used. HPI Fantasma Hoyt is a 53 year old female who presents today for CC of mid back pain that started 3hours ago. She has used meloxicam without relief. BP 146/92 Pulse 102 Temp 36.1 C (97 F) Resp 18 Wt 95.5 kg (210 lb 8.6 oz) SpO2 100% BMI32.98 kg/m Social History Tobacco Use Smoking status: Former Current packs/day: 0.00 Average packs/day: 0.5 packs/day for 10.0 years (5.0 ttl pk-yrs) Types: Cigarettes Start date: 04/29/2001 Quit date: 04/30/2011 Years since quittin.8 Smokeless tobacco: Never Vaping Use Vaping status: Never Used Substance Use Topics Alcohol use: Not Currently Alcohol/week: 6.0 standard drinks of alcohol Types: 6 Glasses of wine per week Drug use: No PAST MEDICAL HISTORY Diagnosis Date Acute meniscal tear of left knee 2013 s/p repair DDD (degenerative disc disease), cervical DDD (degenerative disc disease), lumbar [facility] Castillo Diabetes mellitus type II (HCC) Endometriosis GERD (gastroesophageal reflux disease) Hot flashes Hyperlipidemia Hypertension Labral tear of hip, degenerative left hip, Seeing ortho Obesity Plantar fasciitis of right foot 2013 s/p plantar fasciotomy S/P hysterectomy LSO Seasonal allergies Uterine fibroid s/p hysterectomy I have confirmed and edited as necessary, the [facility] Review of Systems Constitutional: Negative for chills and fever. Musculoskeletal: Positive for back pain. Negative for joint pain and myalgias. Skin: Negative for itching and rash. All other systems reviewed and are negative. Objective Physical Exam Vitals and nursing note reviewed. Pulmonary: Effort: Pulmonary effort is normal. Musculoskeletal: Cervical back: Normal. Thoracic back: Spasms and tenderness present. No swelling, deformity, lacerations or bony tenderness. Normal range of motion. Lumbar back: Normal. Back: Comments: Area of pain along paraspinal Skin: General: Skin is warm and dry. Neurological: Mental Status: She is alert and oriented to person, place, and time. Psychiatric: Mood and Affect: Affect normal. ASSESSMENT/PLAN: 1. Upper back pain - ICD9: 724.5, ICD10: M54.9 Appears to be muscle strain - Ice for localized tenderness - Prednisone burst- see orders - Muscle relaxant- see orders - Patient given instructions use of medications as ordered Diagnosis and treatment plan were discussed and questions were answered to the patient's satisfaction. Pt acknowledged understanding of concepts and follow up plan. Specific signs and symptoms that would indicate the need for higher level of care were discussed indetail warranting prompt ER evaluation. Lis Roth APRN.[employer] documented [facility]12[facility] Telephone encounter Note * Telephone Encounter - Jessica Harmon RN - 02/17/2024 1:32 PM EST Patient call in for severe facial flushing, sweating, nausea, and high blood pressure. Patient states that this has been going on for about a week. It started a couple days after receiving a steroid injection from Dr. Sen. Patient did speak with Dr. Sen's office who advised her that it could not be the injection and that she should call PCP. Patient states that her blood pressure which usually is 120/80 at the most is running 140-150/90-100 range. Patient states that her blood sugars havebeen running in the 120s which they are normally much lower. Nurse Triage assessment completed with protocol recommending for disposition of see PCP in 3 days. Advised patient that with symptoms she should go be evaluated sooner in the ER. Patient voiced understanding. Care advice reviewed with patient, patient stated understanding. Patient advised to contact office or seek evaluation in ER if symptoms persist or gets worse. Reason for Disposition Systolic BP >= 160 OR Diastolic >= 100 Answer Assessment - Initial Assessment Questions 1. BLOOD PRESSURE: 140/90; 150/10 2. ONSET: Last night was last time she took BP 3. HOW: Automatic home BP 4. HISTORY: Yes 5. MEDICINES: Losartan 6. OTHER SYMPTOMS: Hot flashes, Nausea, High blood sugars Patient as given steroid shot by Dr. Romero office on 02/07; Patient started with symptoms on 02/09. Protocols used: Blood Pressure - [id number] [facility]12-[facility] Miscellaneous Notes* Telephone Encounter - Jessica Harmon RN - 02/17/2024 1:32 PM EST Patient call in for severe facial flushing, sweating, nausea, and high blood pressure. Patient states that this has been going on for about a week. It started a couple days after receiving a steroid injection from Dr. Sen. Patient did speak with Dr. Sen's office who advised her that it could not be the injection and that she should call PCP. Patient states that her blood pressure which usually is 120/80 at the most is running 140-150/90-100 range. Patient states that her blood sugars havebeen running in the 120s which they are normally much lower. Nurse Triage assessment completed with protocol recommending for disposition of see PCP in 3 days. Advised patient that with symptoms she should go be evaluated sooner in the ER. Patient voiced understanding. Care advice reviewed with patient, patient stated understanding. Patient advised to contact office or seek evaluation in ER if symptoms persist or gets worse. Reason for Disposition Systolic BP >= 160 OR Diastolic >= 100 Answer Assessment - Initial Assessment Questions 1. BLOOD PRESSURE: 140/90; 150/10 2. ONSET: Last night was last time she took BP 3. HOW: Automatic home BP 4. HISTORY: Yes 5. MEDICINES: Losartan 6. OTHER SYMPTOMS: Hot flashes, Nausea, High blood sugars Patient as given steroid shot by Dr. Romero office on 02/07; Patient started with symptoms on 02/09. Protocols used: Blood Pressure - [id number] * Telephone Encounter - Chrissie Sidhu RN - 02/17/2024 1:24 PM EST Attempted to contact patient. No answer. Message left for patient to call provider's office to speak with a nurse regarding symptoms as stated in . Chrissie Sidhu RN documented [facility]12[facility] Telephone encounter Note * Telephone Encounter - Chrissie Sidhu RN - 02/17/2024 1:24 PM EST Attempted to contact patient. No answer. Message left for patient to call provider's office to speak with a nurse regarding symptoms as stated in . Chrissie Sidhu RN [facility]12-20-[facility] Telephone encounter Note* Telephone Encounter - Cecille Block MA - 02/17/2024 1:16 PM EST Placed on Nurse Triage to contact pt. Cecille Block MA [facility]12-20-2024 Miscellaneous Notes* Telephone Encounter - Cecille Block MA - 02/17/2024 1:16 PM EST Placed on Nurse Triage to contact pt. Cecille Block MA documented in [facility] encounterCl[facility]12-[facility]24 NoteHNO ID: [id number] Author: WILLIAN ANDREW APRN.[employer]ER Service: ? Author Type: Nurse Practitioner Type: Progress Notes Filed: 01/30/2024 13:43 Note Text: Patient presents with: Sore Throat: ST, left ear pain and PEDRO x 1 day SUBJECTIVE: Fantasma Hoyt is a 53 year old year old female who presents for the past 1 day with symptoms that are:constant. Scratchy throat, sneezing, coughing yesterday Today awoke with sore throat, headache, left ear pain Risk factors: none Social History Tobacco Use Smoking status: Former Current packs/day: 0.00 Average packs/day: 0.5 packs/day for 10.0 years (5.0 ttl pk-yrs) Types: Cigarettes Start date: 04/29/2001 Quit date: 04/30/2011 Years since quittin.7 Smokeless tobacco: Never Vaping Use Vaping status: Never Used Substance Use Topics Alcohol use: Not Currently Alcohol/week: 6.0 standard drinks of alcohol Types: 6 Glasses of wine per week Drug use: No PAST MEDICAL HISTORY Diagnosis Date Acute meniscal tear of left knee 2013 s/p repair DDD (degenerative disc disease), cervical DDD (degenerative disc disease), lumbar [facility] Castillo Diabetes mellitus type II (HCC) Endometriosis GERD (gastroesophageal reflux disease) Hot flashes Hyperlipidemia Hypertension Labral tear of hip, degenerative left hip, Seeing ortho Obesity Plantar fasciitis of right foot 2013 s/p plantar fasciotomy S/P hysterectomy LSO Seasonal allergies Uterine fibroid s/p hysterectomy 01/30/24 1209 BP: 152/98 Pulse: 78 Resp: 18 Temp: 36.4 ?C (97.5 ?F) TempSrc: Tympanic SpO2: 98% Weight: 99.2 kg (218 lb 11.1 oz) ALLERGIES Allergen Reactions Codeine Anaphylaxis Contrast Dye Anaphylaxis Shellfish Containin* GI Upset Squash GI Upset Sulfa Dyne Anaphylaxis Anchor GI Upset Medications: tirzepatide (MOUNJARO) 15 mg/0.5 mL pen injector Inject 15 mg subcutaneously one time a week. meloxicam (MOBIC) 15 mg tablet Take 1 tablet by mouth once daily. simvastatin (ZOCOR) 10 mg tablet Take 1 tablet by mouth daily at bedtime. EPINEPHrine (EPIPEN) 0.3 mg/0.3 mL auto-injector 1 INJECTION NEEDED IN THIGH pantoprazole DR (PROTONIX) 40 mg tablet Take 1 tablet by mouth once daily. hydroCHLOROthiazide 12.5 mg tablet Take 1 tablet by mouth once daily. metFORMIN (GLUCOPHAGE) 500 mg tablet Take 1 tablet by mouth two times a day with meals. . losartan (COZAAR) 50 mg tablet Take two tablets daily Blood-Glucose Meter (CONTOUR NEXT ONE METER) Check blood sugar twice daily and as needed blood sugar diagnostic (CONTOUR NEXT TEST STRIPS) test strip Check blood sugar twice a day and as needed Cholecalciferol, Vitamin D3, 25 mcg (1,000 unit) [...] D ORAL) Take by mouth twice daily. benzonatate (TESSALON PERLE) 100 mg capsule Take 1 capsule by mouth three times a day as needed for cough. Review of Systems Constitutional: Negative for chills, diaphoresis, fever and malaise/fatigue. HENT: Positive for congestion, ear pain and sore throat. Negative for sinus pain. Eyes: Negative for discharge and redness. Respiratory: Positive for cough. Negative for sputum production, shortness of breath, wheezing and stridor. Gastrointestinal: Negative for diarrhea, nausea and vomiting. Musculoskeletal: Positive for myalgias. Neurological: Positive for headaches. Negative for dizziness. Physical Exam Vitals and nursing note reviewed. Constitutional: General: She is not in acute distress. HENT: Head: Normocephalic. Right Ear: Tympanic membrane, ear canal and external ear normal. Left Ear: Tympanic membrane, ear canal and external ear normal. Nose: Nose normal. Mouth/Throat: Mouth: Mucous membranes are moist. Pharynx: Posterior oropharyngeal erythema present. No oropharyngeal exudate. Eyes: General: Right eye: No discharge. Left eye: No discharge. Conjunctiva/sclera: Conjunctivae normal. Cardiovascular: Rate and Rhythm: Normal rate and regular rhythm. Heart sounds: Normal heart sounds. Pulmonary: Effort: Pulmonary effort is normal. No respiratory distress. Breath sounds: Normal breath sounds. No wheezing or rales. Musculoskeletal: Cervical back: Neck supple. Lymphadenopathy: Cervical: No cervical adenopathy. Skin: General: Skin is warm and dry. Findings: No rash. Neurological: Mental Status: She is alert and oriented to person, place, and time. ASSESSMENT/PLAN: 1. Viral upper respiratory illness - ICD9: 465.9, ICD10: J06.9 - Discussed viral etiology and rationale for treatment. - Symptomatic treatment with prn analgesia - Supportive care with fluids and rest - Follow up in 3-5 days if symptoms persist or s (more content not included)... [facility]12-02-2024 History of Present illness Narrative* Willian Andrew, AMISH.[employer] - 01/30/2024 12:28 PM EST Patient presents with: Sore Throat: ST, left ear pain and PEDRO x 1 day SUBJECTIVE: Fantasma Hoyt is a 53 year old year old female who presents for the past 1 day with symptoms that are:constant. Scratchy throat, sneezing, coughing yesterday Today awoke with sore throat, headache, left ear pain Risk factors: none Social History Tobacco Use Smoking status: Former Current packs/day: 0.00 Average packs/day: 0.5 packs/day for 10.0 years (5.0 ttl pk-yrs) Types: Cigarettes Start date: 04/29/2001 Quit date: 04/30/2011 Years since quittin.7 Smokeless tobacco: Never Vaping Use Vaping status: Never Used Substance Use Topics Alcohol use: Not Currently Alcohol/week: 6.0 standard drinks of alcohol Types: 6 Glasses of wine per week Drug use: No PAST MEDICAL HISTORY Diagnosis Date Acute meniscal tear of left knee 2013 s/p repair DDD (degenerative disc disease), cervical DDD (degenerative disc disease), lumbar [facility] Jonathan Diabetes mellitus type II (HCC) Endometriosis GERD (gastroesophageal reflux disease) Hot flashes Hyperlipidemia Hypertension Labral tear of hip, degenerative left hip, Seeing ortho Obesity Plantar fasciitis of right foot 2013 s/p plantar fasciotomy S/P hysterectomy LSO Seasonal allergies Uterine fibroid s/p hysterectomy 01/30/24 1209 BP: 152/98 Pulse: 78 Resp: 18 Temp: 36.4 C (97.5 F) TempSrc: Tympanic SpO2: 98% Weight: 99.2 kg (218 lb 11.1 oz) ALLERGIES Allergen Reactions Codeine Anaphylaxis Contrast Dye Anaphylaxis Shellfish Containin* GI Upset Squash GI Upset Sulfa Dyne Anaphylaxis Anchor GI Upset Medications: tirzepatide (MOUNJARO) 15 mg/0.5 mL pen injector Inject 15 mg subcutaneously one time a week. meloxicam (MOBIC) 15 mg tablet Take 1 tablet by mouth once daily. simvastatin (ZOCOR) 10 mg tablet Take 1 tablet by mouth daily at bedtime. EPINEPHrine (EPIPEN) 0.3 mg/0.3 mL auto-injector 1 INJECTION NEEDED IN THIGH pantoprazole DR (PROTONIX) 40 mg tablet Take 1 tablet by mouth once daily. hydroCHLOROthiazide 12.5 mg tablet Take 1 tablet by mouth once daily. metFORMIN (GLUCOPHAGE) 500 mg tablet Take 1 tablet by mouth two times a day with meals. . losartan (COZAAR) 50 mg tablet Take two tablets daily Blood-Glucose Meter (CONTOUR NEXT ONE METER) Check blood sugar twice daily and as needed blood sugar diagnostic (CONTOUR NEXT TEST STRIPS) test strip Check blood sugar twice a day and as needed Cholecalciferol, Vitamin D3, 25 mcg (1,000 unit) [...] D ORAL) Take by mouth twice daily. benzonatate (TESSALON PERLE) 100 mg capsule Take 1 capsule by mouth three times a day as needed forcough. Review of Systems Constitutional: Negative for chills, diaphoresis, fever and malaise/fatigue. HENT: Positive for congestion, ear pain and sore throat. Negative for sinus pain. Eyes: Negative for discharge and redness. Respiratory: Positive for cough. Negative for sputum production, shortness of breath, wheezing and stridor. Gastrointestinal: Negative for diarrhea, nausea and vomiting. Musculoskeletal: Positive for myalgias. Neurological: Positive for headaches. Negative for dizziness. Physical Exam Vitals and nursing note reviewed. Constitutional: General: She is not in acute distress. HENT: Head: Normocephalic. Right Ear: Tympanic membrane, ear canal and external ear normal. Left Ear: Tympanic membrane, ear canal and external ear normal. Nose: Nose normal. Mouth/Throat: Mouth: Mucous membranes are moist. Pharynx: Posterior oropharyngeal erythema present. No oropharyngeal exudate. Eyes: General: Right eye: No discharge. Left eye: No discharge. Conjunctiva/sclera: Conjunctivae normal. Cardiovascular: Rate and Rhythm: Normal rate and regular rhythm. Heart sounds: Normal heart sounds. Pulmonary: Effort: Pulmonary effort is normal. No respiratory distress. Breath sounds: Normal breath sounds. No wheezing or rales. Musculoskeletal: Cervical back: Neck supple. Lymphadenopathy: Cervical: No cervical adenopathy. Skin: General: Skin is warm and dry. Findings: No rash. Neurological: Mental Status: She is alert and oriented to person, place, and time. ASSESSMENT/PLAN: 1. Viral upper respiratory illness - ICD9: 465.9, ICD10: J06.9 - Discussed viral etiology and rationale for treatment. - Symptomatic treatment with prn analgesia - Supportive care with fluids and rest - Follow up in 3-5 days if symptoms persist or sooner if worsening of symptoms - DAGOBERTO A MOLECULAR (POC) Willian Andrew [facility] Instructions* Patient Instructions* Willian Andrew APRN.CNP - 01/30/2024 12:25 PM EST Treatment for Viral Upper Respiratory Tract Infections Your body will kill off the virus by itself. Additionally, you can prime your body's immune system.This may help you get better more quickly. Drink lots of fluids - at least one gallon of non-caffeinated liquids per day Make sure you are eating well Get plenty of rest - at least 8 hours of sleep per night for adults and more for children We do not have any medications that kill off these viruses. Antibiotics are used to treat bacterialinfections; however, they are not active against viral infections. There are some things that mighthelp you feel better, though. Vaporizers, humidifiers, hot showers, and hot fluids help open respiratory and sinus passages Sudafed is a safe and effective decongestant [place] may offer relief of nasal and head congestion Tramaine's Vapor Rub placed on a hot towel and draped over the head may relieve congestion Tylenol and Advil help control fevers and headaches Salt water gargles help relieve sore throats Chloraceptic spray or throat lozenges may also help relieve sore throat symptoms Robitussin DM will help loosen up secretions and also provide relief from a cough Occasionally, viral infections turn into something more serious. You should see your doctor or return to the Urgent Care if: You have fevers for longer than five days You have fevers above 102 degrees You are still sick after 10 days You have shortness of breath or wheezing After several days you are getting worse rather than better [facility] Telephone encounter Note * Telephone Encounter - Steph Cobos LPN - 01/16/2024 10:45 AM EST Prescription Refill Information The patient has been identified by name and date of : Yes Caregiver verified no other encounters exist for this prescription request: Yes Caregiver confirmed with patient/requestor that no other refills are due, in the near future, with this provider at this time: Yes The last office visit in the department: 10/07/23 Does the patient have a future office visit with this provider/department: Yes 04/09/24 Requested Prescriptions Pending Prescriptions Disp Refills simvastatin (ZOCOR) 10 mg tablet 90 tablet 1 Sig: Take 1 tablet by mouth daily at bedtime. EPINEPHrine (EPIPEN) 0.3 mg/0.3 mL auto-injector 2 Each 1 Si INJECTION NEEDED IN THIGH pantoprazole DR (PROTONIX) 40 mg tablet 90 tablet 3 Sig: Take 1 tablet by mouth once daily. hydroCHLOROthiazide 12.5 mg tablet 90 tablet 3 Sig: Take 1 tablet by mouth once daily. metFORMIN (GLUCOPHAGE) 500 mg tablet 180 tablet 3 Sig: Take 1 tablet by mouth two times a day with meals. . losartan (COZAAR) 50 mg tablet 180 tablet 3 Sig: Take two tablets daily Steph Cobos LPN January 16, 2024 10:45 AM [facility]11-18-2024 Miscellaneous Notes* Telephone Encounter - Steph Cobos LPN - 01/16/2024 10:45 AM EST Prescription Refill Information The patient has been identified by name and date of : Yes Caregiver verified no other encounters exist for this prescription request: Yes Caregiver confirmed with patient/requestor that no other refills are due, in the near future, with this provider at this time: Yes The last office visit in the department: 10/07/23 Does the patient have a future office visit with this provider/department: Yes 04/09/24 Requested Prescriptions Pending Prescriptions Disp Refills simvastatin (ZOCOR) 10 mg tablet 90 tablet 1 Sig: Take 1 tablet by mouth daily at bedtime. EPINEPHrine (EPIPEN) 0.3 mg/0.3 mL auto-injector 2 Each 1 Si INJECTION NEEDED IN THIGH pantoprazole DR (PROTONIX) 40 mg tablet 90 tablet 3 Sig: Take 1 tablet by mouth once daily. hydroCHLOROthiazide 12.5 mg tablet 90 tablet 3 Sig: Take 1 tablet by mouth once daily. metFORMIN (GLUCOPHAGE) 500 mg tablet 180 tablet 3 Sig: Take 1 tablet by mouth two times a day with meals. . losartan (COZAAR) 50 mg tablet 180 tablet 3 Sig: Take two tablets daily Steph Cobos LPN January 16, 2024 10:45 AM [facility] Telephone encounter Note * Telephone Encounter - Steph Cobos LPN - 01/16/2024 10:44 AM EST Prescription Refill Information The patient has been identified by name and date of : Yes Caregiver verified no other encounters exist for this prescription request: Yes Caregiver confirmed with patient/requestor that no other refills are due, in the near future, with this provider at this time: Yes The last office visit in the department: 10/07/23 Does the patient have a future office visit with this provider/department: Yes 04/09/24 Requested Prescriptions Pending Prescriptions Disp Refills meloxicam (MOBIC) 15 mg tablet 90 tablet 0 Sig: Take 1 tablet by mouth once daily. Steph Cobos LPN January 16, 2024 10:44 AM [facility]11-18-[facility] Miscellaneous Notes* Telephone Encounter - Steph Cobos LPN - 01/16/2024 10:44 AM EST Prescription Refill Information The patient has been identified by name and date of : Yes Caregiver verified no other encounters exist for this prescription request: Yes Caregiver confirmed with patient/requestor that no other refills are due, in the near future, with this provider at this time: Yes The last office visit in the department: 10/07/23 Does the patient have a future office visit with this provider/department: Yes 04/09/24 Requested Prescriptions Pending Prescriptions Disp Refills meloxicam (MOBIC) 15 mg tablet 90 tablet 0 Sig: Take 1 tablet by mouth once daily. Steph Cobos LPN January 16, 2024 10:44 AM [facility]24 NoteHNO ID: [id number] Author: ANTONIO HUI MD Service: ? Author Type: Physician Type: Progress Notes Filed: 10/08/2023 08:02 Note Text: Chief Complaint Patient presents with: Physical HPI Fantasma Rhoades is a 53 year old female who presents here today for Above Complaints. DIABETES MELLITUS: Ms. Rhoades was last seen 8 months ago. Since our last visit she [...] day schedule with sugars in the fasting 90-100 range. Patient's last HgA1C was Hemoglobin A1C (%) Date Value 11/09/2022 5.3 02/04/2022 5.3 01/31/2021 5.6 08/18/2020 5.8 ) Last Ophthalmology exam was within the past 12 months. No retinopathy. Last Podiatry exam was more than 12 months ago Needs refill on meloxicam for her DDD. Working well on current dosage. Takes with food. HTN: Ms. Rhoades indicates that she is feeling well and denies any symptoms referable to elevated blood pressure. Specifically denies headache, chest pain, palpitations, dyspnea, and peripheral edema. Patient denies any side effects of her medication(s) and is compliant with their regimen. She does not check BP's generally. [place] likes to exercise by walking. She watches her diet for sodium, low fat and low cholesterol most of the time. Last 3 Encounter BP Readings: Date: BP: 10/07/2023 118/76 08/09/2023 135/89 02/14/2023 132/84 GERD: controlled with Protonix daily. Patient down about 90 lbs since 07/2021 with Mounjaro and exercise. States that she would like to get down to 175 lbs ultimately. Had panniculectomy in July and is healing well without infection concerns. Past medical history, appointments, medications, allergies reviewed. Previous Medical History PAST MEDICAL HISTORY 2014: Acute meniscal tear of left knee Comment: s/p repair No date: DDD (degenerative disc disease), cervical No date: DDD (degenerative disc disease), lumbar Comment: [facility] Castillo No date: Diabetes mellitus type II (HCC) No date: Endometriosis No date: GERD (gastroesophageal reflux disease) No date: Hot flashes No date: Hyperlipidemia No date: Hypertension No date: Labral tear of hip, degenerative Comment: left hip, Seeing ortho No date: Morbid obesity with BMI of 40.0-44.9, adult ([facility]) 2014: Plantar fasciitis of right foot Comment: s/p plantar fasciotomy No date: Seasonal allergies No date: Uterine fibroid Comment: s/p hysterectomy Previous Surgical History PAST SURGICAL HISTORY 09/22/2021: COLONOSCOPY Comment: repeat in 10 years No date: HYSTERECTOMY HX Comment: total robotic hysterectomy, LSO 2014: KNEE ARTHROSCOPY; Left Comment: meniscal tear No date: LAPS ABD PRTMANDOMENTUM DX W/WO SPEC BR/WA SPX Comment: Laparoscopy for endometriosis 02/12/2021: PAST SURGICAL HISTORY OF; Left Comment: Left hip scope with lbral repaire aceabuloplasty debridemtn of ossified labrum chondropslasty synovectomy femoroplasty and ligamentum teres debridement with capsular closure 2016: PAST SURGICAL HISTORY OF; Right Comment: meniscal tear 11/2022: PAST SURGICAL HISTORY OF Comment: Dr. Christiansen-Bladder Sling 07/2022: REDUCTION OF LARGE BREAST 2014: SCOPE, PLANTAR FASCIOTOMY; Right Family History FAMILY HISTORY Problem Relation Age of Onset Hypertension Mother Heart Failure Mother 64 Heart Mother stents Hypertension Father Coronary Artery Disease Father 59 [place] in 2010- LDa Thyroid Sister Thyroid Sister Heart Maternal Grandmother Rheumatologic disease Paternal Grandmother arthritis Patient Allergies ALLERGIES Allergen Reactions Codeine Anaphylaxis Contrast Dye Anaphylaxis Shellfish Containin* GI Upset Squash GI Upset Sulfa Dyne Anaphylaxis Anchor GI Upset Current Medications Current Outpatient Medications on File Prior to Visit Medication Sig tirzepatide (MOUNJARO) 15 mg/0.5 mL pen injector Inject 15 mg subcutaneously one time a week. meloxicam (MOBIC) 15 mg tablet Take 1 tablet by mouth once daily. EPINEPHrine (EPIPEN) 0.3 mg/0.3 mL auto-injector 1 INJECTION NEEDED IN THIGH pantoprazole DR (PROTONIX) 40 mg tablet Take 1 tablet by mouth once daily. hydroCHLOROthiazide 12.5 mg tablet Take 1 tablet by mouth once daily. metFORMIN (GLUCOPHAGE) 500 mg tablet Take 1 tablet by mouth two times a day with meals. . losartan (COZAAR) 50 mg tablet Take two tablets daily Cholecalciferol, Vitamin D3, 25 mcg (1,000 unit) cap Take by mouth. turmeric 400 mg cap Take 1 capsule by mouth once daily. venlafaxine ER (EFFEXOR XR) 75 mg 24 hr capsule Take 1 capsule by mouth once daily. Cetirizine 10 mg cap Take by mouth. Aspirin 81 mg Tab Take (more content not included)...[facility] 10-07-2023 History of Present illness Narrative* Antonio Hui MD - 10/07/2023 8:51 AM EDT Chief Complaint Patient presents with: Physical HPI Fantasma Rhoades is a 53 year old female who presents here today for Above Complaints. DIABETES MELLITUS: Ms. Rhoades was last seen 8 months ago. Since our last visit she denies excessivethirst or increased frequency of urination, numbness, tingling or pain in extremities, new or unusual visual symptoms, and low sugar/hypoglycemic reactions. Follows a diabetic diet most of the time. She is compliant with medication(s) and is tolerating med(s) without any side effects. She reports checking her glucose on a once a day schedule with sugars in the fasting 90-100 range. Patient's [id number] was Hemoglobin A1C (%) Date Value 11/09/2022 5.3 02/04/2022 5.3 01/31/2021 5.6 08/18/2020 5.8 ) Last Ophthalmology exam was within the past 12 months. No retinopathy. Last Podiatry exam was more than 12 months ago Needs refill on meloxicam for her DDD. Working well on current dosage. Takes with food. HTN: Ms. Rhoades indicates that she is feeling well and denies any symptoms referable to elevated blood pressure. Specifically denies headache, chest pain, palpitations, dyspnea, and peripheral edema.Patient denies any side effects of her medication(s) and is compliant with their regimen. She does not check BP's generally. Fantasma likes to exercise by walking. She watches her diet for sodium, low fat and low cholesterol most of the time. Last 3 Encounter BP Readings: Date: BP: 10/07/2023 118/76 08/09/2023 135/89 02/14/2023 132/84 GERD: controlled with Protonix daily. Patient down about 90 lbs since 07/2021 with Mounjaro and exercise. States that she would like to get down to 175 lbs ultimately. Had panniculectomy in July and is healing well without infection concerns. Past medical history, appointments, medications, allergies reviewed. Previous Medical History PAST MEDICAL HISTORY 2014: Acute meniscal tear of left knee Comment: s/p repair No date: DDD (degenerative disc disease), cervical No date: DDD (degenerative disc disease), lumbar Comment: [facility]-Dr Castillo No date: Diabetes mellitus type II ([facility]) No date: Endometriosis No date: GERD (gastroesophageal reflux disease) No date: Hot flashes No date: Hyperlipidemia No date: Hypertension No date: Labral tear of hip, degenerative Comment: left hip, Seeing ortho No date: Morbid obesity with BMI of 40.0-44.9, adult ([facility]) 2014: Plantar fasciitis of right foot Comment: s/p plantar fasciotomy No date: Seasonal allergies No date: Uterine fibroid Comment: s/p hysterectomy Previous Surgical History PAST SURGICAL HISTORY 09/22/2021: COLONOSCOPY Comment: repeat in 10 years No date: HYSTERECTOMY HX Comment: total robotic hysterectomy, LSO 2014: KNEE ARTHROSCOPY; Left Comment: meniscal tear No date: LAPS ABD PRTM&OMENTUM DX W/WO SPEC BR/WA SPX Comment: Laparoscopy for endometriosis 02/12/2021: PAST SURGICAL HISTORY OF; Left Comment: Left hip scope with lbral repaire aceabuloplasty debridemtn of ossified labrum chondropslasty synovectomy femoroplasty and ligamentum teres debridement with capsular closure 2016: PAST SURGICAL HISTORY OF; Right Comment: meniscal tear 11/2022: PAST SURGICAL HISTORY OF Comment: Dr. Christiansen-Bladder Sling 07/2022: REDUCTION OF LARGE BREAST 2014: SCOPE, PLANTAR FASCIOTOMY; Right Family History FAMILY HISTORY Problem Relation Age of Onset Hypertension Mother Heart Failure Mother 64 Heart Mother stents Hypertension Father Coronary Artery Disease Father 59 [place] in 2010- LDa Thyroid Sister Thyroid Sister Heart Maternal Grandmother Rheumatologic disease Paternal Grandmother arthritis Patient Allergies ALLERGIES Allergen Reactions Codeine Anaphylaxis Contrast Dye Anaphylaxis Shellfish Containin* GI Upset Squash GI Upset Sulfa Dyne Anaphylaxis Anchor GI Upset Current Medications Current Outpatient Medications on File Prior to Visit Medication Sig tirzepatide (MOUNJARO) 15 mg/0.5 mL pen injector Inject 15 mg subcutaneously one time a week. meloxicam (MOBIC) 15 mg tablet Take 1 tablet by mouth once daily. EPINEPHrine (EPIPEN) 0.3 mg/0.3 mL auto-injector 1 INJECTION NEEDED IN THIGH pantoprazole DR (PROTONIX) 40 mg tablet Take 1 tablet by mouth once daily. hydroCHLOROthiazide 12.5 mg tablet Take 1 tablet by mouth once daily. metFORMIN (GLUCOPHAGE) 500 mg tablet Take 1 tablet by mouth two times a day with meals. . losartan (COZAAR) 50 mg [...] D ORAL) Take by mouth twice daily. simvastatin (ZOCOR) 10 mg tablet Take 1 tablet by mouth daily at bedtime. Blood-Glucose Meter (CONTOUR NEXT ONE METER) Check blood sugar twice daily and as needed blood sugar diagnostic (CONTOUR NEXT TEST STRIPS) test strip Check blood sugar twice a day and as needed ondansetron orally disintegrating (ZOFRAN ODT) 4 mg disintegrating tablet gabapentin (NEURONTIN) 100 mg capsule Take 100 mg by mouth three times daily. glucosamine sulfate (GLUCOSAMINE ORAL) Take by mouth twice daily. No current facility-administered medications on file prior to visit. Social History Social History Tobacco Use Smoking status: Former Packs/day: 0.50 Years: 10.00 Additional pack years: 0.00 Total pack years: 5.00 Types: Cigarettes Quit date: 04/30/2011 Years since quittin.4 Smokeless tobacco: Never Vaping Use Vaping Use: Never used Substance Use Topics Alcohol use: Yes Comment: occasional Drug use: No Review of Symptoms REVIEW OF SYSTEMS GENERAL: No weight loss, malaise or fevers HEENT: Negative for frequent or significant headaches, No changes in hearing or vision, no nose bleeds or other nasal problems NECK: Negative for lumps, goiter, pain and significant neck swelling RESPIRATORY: Negative for cough, hemoptysis, wheezing, COPD, dyspnea or shortness of breath CARDIOVASCULAR: Negative for chest pain, leg swelling, hypertension, CHF or palpitations GI: No nausea, vomiting, or diarrhea : No history of dysuria, frequency or incontinence ORCHID SUPERINTENDENT: Negative for abnormal vaginal bleeding, abnormal vaginal discharge MUSCULOSKELETAL: Negative for joint pain or swelling, back pain or muscle pain SKIN: Negative for lesions, rash, and itching PSYCH: Negative for sleep disturbance, mood disorder and recent psychosocial stressors HEMATOLOGY/LYMPHOLOGY: Negative for prolonged bleeding, bruising easily or swollen nodes ENDOCRINE: Negative for cold or heat intolerance, polyuria, polydipsia and goiter NEURO: No history of headaches, syncope, paralysis, seizures or tremors EXAM: BP 118/76 Pulse 92 Resp 16 Wt 96.3 kg (212 lb 4.9 oz) SpO2 98% BMI 33.25 kg/m General Appearance: Well appearing, alert, in no acute distress, well-hydrated, well nourished.. Skin: Skin color, texture, turgor normal, no suspicious rashes or lesions. Panniculectomy incision site well healed. Head: Normocephalic, no masses, lesions, tenderness or abnormalities. Eyes: Anicteric sclera. Pupils are equally round and reactive to light. Extraocular movements are intact. . Ears: External ears normal, canals clear. Nose/Sinuses: Nares normal, septum midline, mucosa normal, no drainage or sinus tenderness. Oropharynx: Lips, mucosa, and tongue normal, teeth and gums normal, oropharynx normal. Neck: Supple, no adenopathy; thyroid symmetric, normal size, no bruits. Lungs: Lungs clear to auscultation. No wheezing, rhonchi, rales.. Heart: RRR without murmur, gallop, or rubs. No ectopy. Abdomen: Normal abdominal exam, Abdomen soft, non-tender. Bowel sounds normal. No masses, organomegaly. Extremities: No deformities, edema, skin discoloration, clubbing or cyanosis. Good capillary refill. . Musculoskeletal: No joint swelling, deformity, or tenderness. Peripheral Pulses: Normal. Neurologic: CN II-XII intact grossly Lymph Nodes: No cervical lymphadenopathy and No supraclavicular lymphadenopathy. Feet: Shoes and socks removed, No deformities, ulcers, calluses, normal distal pulses, and sensitive to 10 gm monofilament Health Maintenance List Depression Screening Never done Anxiety Screening Never done Hepatitis C Screening Never done HIV Screening Never done BP Controlled (<130/80) Never done HbA1C due on 05/10/2023 Diabetic Foot Exam due on 08/13/2023 Dilated Retinal Exam due on 02/15/2024 Pneumococcal Vaccine(1 of 2 - PCV) due on 02/15/2024 Influenza Vaccine(1) due on 10/30/2023 Urine Albumin:Creatinine Ratio due on 02/15/2024 LDL Cholesterol due on 02/15/2024 Annual PCP Team Chronic Disease Visit due on 02/15/2024 Mammogram Screening due on 09/11/2024 Colorectal Cancer Screening due on 09/23/2031 DTaP,Tdap,Td Vaccine(3 - Td or Tdap) due on 09/05/2032 Hepatitis B Vaccine Completed Shingrix Vaccine Completed Covid-19 Vaccine Completed Cervical Cancer Screening Discontinued Data reviewed Latest Ref Rng 02/14/2023 WBC 3.70 - 11.00 k/uL 7.55 RBC 3.90 - 5.20 m/uL 4.35 Hemoglobin 11.5 - 15.5 g/dL 13.2 Hematocrit 36.0 - 46.0 % 39.9 MCV 80.0 - 100.0 fL 91.7 MCH 26.0 - 34.0 pg 30.3 MCHC 30.5 - 36.0 g/dL 33.1 RDW-CV 11.5 - 15.0 % 13.0 Platelet Count 150 - 400 k/uL 331 MPV 9.0 - 12.7 fL 11.3 Neut% % 63.5 Abs Neut (ANC) 1.45 - 7.50 k/uL 4.79 Lymph% % 26.1 Abs Lymph 1.00 - 4.00 k/uL 1.97 Marion% % 7.7 Abs Marion <0.87 k/uL 0.58 Eosin% % 2.1 Abs Eosin <0.46 k/uL 0.16 Baso% % 0.5 Abs Baso <0.11 k/uL 0.04 Immature Gran % % 0.1 IMMATURE GRANS (ABS) <0.10 k/uL <0.03 NRBC /100 WBC 0.0 Absolute nRBC <0.01 k/uL <0.01 DTYPE Auto Protein, Total 6.3 - 8.0 g/dL 7.0 Albumin 3.9 - 4.9 g/dL 4.5 Calcium 8.5 - 10.2 mg/dL 10.1 Bilirubin, Total 0.2 - 1.3 mg/dL 0.2 Alkaline Phosphatase 34 - 123 U/L 85 AST 13 - 35 U/L 21 ALT 7 - 38 U/L 20 Glucose 74 - 99 mg/dL 95 BUN 7 - 21 mg/dL 14 Creatinine 0.58 - 0.96 mg/dL 0.69 Sodium 136 - 144 mmol/L 138 Potassium 3.7 - 5.1 mmol/L 4.1 Chloride 97 - 105 mmol/L 101 CO2 22 - 30 mmol/L 27 Anion Gap 9 - 18 mmol/L 10 eGFR >=60 mL/min/1.73m 103 Total Cholesterol, Nonfasting <200 mg/dL 183 Triglycerides, Nonfasting <150 mg/dL 149 HDL Cholesterol, Nonfasting >39 mg/dL 64 LDL Cholesterol, Nonfasting <100 mg/dL 89 Non HDL Cholesterol, Nonfasting <130 mg/dL 119 VLDL Cholesterol, Nonfasting <30 mg/dL 30 (H) Total Chol/HDL Ratio, Nonfasting <5.10 mg/dL 2.86 LDL/HDL Ratio, Nonfasting <2.54 mg/dL 1.39 Creatinine, Ur Random (UCRR) 20.0 - 300.0 mg/dL 141.1 Albumin, Urine Random mg/L 14.0 Albumin/Creat Ratio <30 mg/g 10 Legend: (H) High ASSESSMENT/PLAN: 1. Annual physical exam - ICD9: V70.0, ICD10: Z00.00 (primary diagnosis) - Counseled on healthy diet and regular exercise - Recommend vitamin containing 0.4 mg of folic acid - Counseled patient on limiting alcohol intake to 1 drink per day - Follow up for annual exam in one year 2. Diabetes mellitus type II (HCC) - ICD9: 250.00, ICD10: E11.9 - Control undetermined, due for labs - Continue current medications - Statin prescribed - This patient does not have an active medication from one of the medication groupers. - Blood glucose monitoring on a once daily schedule - Counseled on healthy diet and regular exercise - Discussed need for and benefit of weight loss. BMI 33.25 kg/(m^2) - Discussed diabetic education issues of diabetes complications and monitoring required, hypoglycemic/hyperglycemic symptoms, and medication-specific side effects and monitoring - Follow up in 6 months, sooner should any other issues arise. - HEMOGLOBIN A1C - COMPREHENSIVE METABOLIC PANEL 3. Primary hypertension - ICD9: 401.9, ICD10: I10 - Controlled - Continue current medications - Recommend home blood pressure monitoring, to bring results to next visit - Encouraged sodium restriction, DASH or Mediterranean diet - Recommend regular aerobic exercise 4. Hyperlipidemia, unspecified hyperlipidemia type - ICD9: 272.4, ICD10: E78.5 - Controlled - Continue current medications - Counseled on healthy diet and regular exercise 5. Class 1 obesity with serious comorbidity and body mass index (BMI) of 33.0 to 33.9 in adult, unspecified obesity type - ICD9: 278.00, V85.33, ICD10: E66.9, Z68.33 Weight decreasing - Behavioral intervention and - Pharmacological intervention 6. Gastroesophageal reflux disease, unspecified whether esophagitis present - ICD9: 530.81, ICD10: K21.9 - Continue treatment with Protonix 7. DDD (degenerative disc disease), cervical - ICD9: 722.4, ICD10: M50.30 Improved with meloxicam. Given exercises for home. 8. DDD (degenerative disc disease), lumbar - ICD9: 722.52, ICD10: M51.36 Improved with meloxicam. Given exercises for home. Antonio Hui MD documented in [facility] encounter[facility]06[facility] History of Present illness Narrative* Kamryn Duran PA - 08/09/2023 8:48 AM EDT This note was created using NoteWriter. Subjective Fantasma Rhoades is a 53 year old female. HPI 53-year-old female presents for sore throat, headache, congestion x 2 days. Patient states thatshe started getting nasal congestion and sore throat a few days ago. States she was outside over the weekend and she does have seasonal allergies, so that was from postnasal drainage. She has had mild headache. No fevers. States her daughter recently tested positive for strep, so she wanted to be checked for that. No other complaint. PAST MEDICAL HISTORY Diagnosis Date Acute meniscal tear of left knee 2013 s/p repair DDD (degenerative disc disease), cervical DDD (degenerative disc disease), lumbar Hetal Ortho-Dr Jonathan Diabetes mellitus type II (HCC) Endometriosis GERD (gastroesophageal reflux disease) Hot flashes Hyperlipidemia Hypertension Labral tear of hip, degenerative left hip, Seeing ortho Morbid obesity with BMI of 40.0-44.9, adult (HCC) Plantar fasciitis of right foot 2013 s/p plantar fasciotomy Seasonal allergies Uterine fibroid s/p hysterectomy PAST SURGICAL HISTORY Procedure Laterality Date COLONOSCOPY [...] SURGICAL HISTORY OF Right 2015 meniscal tear PAST SURGICAL HISTORY OF 11/2022 Dr. Christiansen-Bladder Sling REDUCTION OF LARGE BREAST 07/2022 SCOPE, PLANTAR FASCIOTOMY Right 2013 ALLERGIES Codeine, Contrast Dye, Shellfish Containing Products, Squash, Sulfa Dyne, and Anchor MEDICATIONS tirzepatide (MOUNJARO) 15 mg/0.5 mL pen injector Inject 15 mg subcutaneously one time a week. meloxicam (MOBIC) 15 mg tablet Take 1 tablet by mouth once daily. simvastatin (ZOCOR) 10 mg tablet Take 1 tablet by mouth daily at bedtime. EPINEPHrine (EPIPEN) 0.3 mg/0.3 mL auto-injector 1 INJECTION NEEDED IN THIGH pantoprazole DR (PROTONIX) 40 mg tablet Take 1 tablet by mouth once daily. hydroCHLOROthiazide 12.5 mg tablet Take 1 tablet by mouth once daily. metFORMIN (GLUCOPHAGE) 500 mg tablet Take 1 tablet by mouth two times a day with meals. . losartan (COZAAR) 50 mg [...] D ORAL) Take by mouth twice daily. Blood-Glucose Meter (CONTOUR NEXT ONE METER) [...] (GLUCOSAMINE ORAL) Take by mouth twice daily. FAMILY HISTORY Problem Relation Age of Onset Hypertension Mother Heart Failure Mother 64 Heart Mother stents Hypertension Father Coronary Artery Disease Father 59 [place] in 2009- Thyroid Sister Thyroid Sister Heart Maternal Grandmother Rheumatologic disease Paternal Grandmother arthritis Social History Tobacco Use Smoking status: Former Packs/day: 0.50 Years: 10.00 Additional pack years: 0.00 Total pack years: 5.00 Types: Cigarettes Quit date: 04/30/2011 Years since quittin.2 Smokeless tobacco: Never Vaping Use Vaping Use: Never used Substance Use Topics Alcohol use: Yes Comment: occasional Drug use: No Review of Systems Constitutional: Negative for chills and fever. HENT: Positive for congestion, postnasal drip and sore throat. Negative for ear pain. Respiratory: Positive for cough. Negative for shortness of breath. Cardiovascular: Negative for chest pain. Gastrointestinal: Negative for diarrhea and vomiting. Objective BP 135/89 Pulse 85 Temp 36.1 C (97 F) Resp 20 Wt 101 kg (222 lb 10.6 oz) SpO2 99% BMI 34.87 kg/m Physical Exam Vitals and nursing note reviewed. Constitutional: General: She is not in acute distress. Appearance: Normal appearance. She is not toxic-appearing. HENT: Right Ear: Tympanic membrane and ear canal normal. Left Ear: Tympanic membrane and ear canal normal. Nose: Congestion present. Mouth/Throat: Mouth: Mucous membranes are moist. Pharynx: Uvula midline. Posterior oropharyngeal erythema present. No oropharyngeal exudate. Eyes: Conjunctiva/sclera: Conjunctivae normal. Cardiovascular: Rate and Rhythm: Normal rate and regular rhythm. Pulmonary: Effort: Pulmonary effort is normal. Breath sounds: Normal breath sounds. Neurological: Mental Status: She is alert. Assessment and Plan ASSESSMENT/PLAN: 1. Sore throat - ICD9: 462, ICD10: J02.9 - suspect viral - Group A strep molecular testing negative - Discussed supportive care treatment with fluids, rest and analgesia. - The patient may also use warm salt water gargles, throat lozenges and/or OTC throat spray as needed. - STREP A MOLECULAR (POC) Diagnosis and treatment plan were discussed and questions were answered to the patient's satisfaction. Pt acknowledged understanding of concepts and follow up plan. Specific signs and symptoms that would indicate the need for higher level of care were discussed in detail warranting prompt ER evaluation. CARLOS Caldwell documented in this encounterCl[facility]04-12-[facility]24 Miscellaneous Notes* Telephone Encounter - Antonio Hui MD - 06/10/2023 11:50 AM EDT Rx for Mounjaro 15 mg sent as requested. Keep f/u appointment as scheduled. documented in this encounterCl[facility]02-28-2024 Miscellaneous Notes* Telephone Encounter - Ondina Wallace LPN - 04/27/2023 4:41 PM EST Sent as requested. documented in this encounterCl[facility]01-29-2024 Discharge summary Author Richie Lai [facility] March 28, 2023 1:16pm Note Date/Time March 28, 2023 9 :55am [facility] Medical Records Department [address] [place] [id number] Emergency Department Summary 03/28/23 MR#: [id number] Acct: [id number] Name: FANTASMA RHOADES Rep #:[id number] : 1970 52 From: Richie Ramey PCP: Dr. Buddy Hui MD Status :REG ER Location: ED HPI HPI - GI History of Present Illness Chief Complaint: Abd Pain Informant: patient Narrative Narrative: since yesterday.Intermittent sharp pain under her right ribs. she reported indigestion yesterday. She did not eat dinner. Ate flatbed pizza with minimal cheese for lunch. Today had increasing pain that was sharp however went away. She went to urgent care and was sent here. She states similar symptoms years ago outpatient ultrasound through her doctor was negative. No fevers or chills. No cough. No chest pains. No recent travel or surgeries. No history of PE orDVT. Occasional alcohol history. Hypertension diabetes hyperlipidemia. No current complaints at this time. Reports urgent care sent here for an ultrasound. Prior similar symptoms: Yes PFSH PFS Medical History Alcohol use Back pain Bladder disease Diabetes Dietary restriction Endometriosis Former smoker Gastric reflux High cholesterol History of echocardiogram History of stress test Hyperlipidemia Hypertension JENNIFFER (stress urinary incontinence, female) Wears glasses Home Medications aspirin 81 mg chewable tablet 81 mg PO DAILY@0800 06/05/13 [History Last Taken 12/15/22] cholecalciferol (vitamin D3) 25 mcg (1,000 unit) capsule 1,000 unit PO DAILY 06/05/13 [History Last Taken Unknown] calcium carbonate 600 mg calcium (1,500 mg) tablet 300 mg PO BID 02/20/16 [History Last Taken Unknown] glucosamine sulfate 250 mg-chondroitin sulfate A 200 mg capsule 1 ea PO BID 02/20/16 [History Last Taken Unknown] pantoprazole 40 mg tablet,delayed release 40 mg PO DAILY 02/20/16 [History Last Taken 12/23/22] cetirizine 10 mg capsule 10 mg PO DAILY PRN Allergies 10/22/18 [History Last Taken Unknown] tirzepatide 12.5 mg/0.5 mL subcutaneous pen injector (Mounjaro) 12.5 mg subcut QWEEK 07/13/22 [History Last Taken Unknown] meloxicam 15 mg tablet 15 mg PO DAILY 12/21/22 [History Last Taken 12/15/22] venlafaxine 75 mg capsule,extended release 24 hr 75 mg PO QHS 12/21/22 [History Last Taken Unknown] cephalexin 500 mg capsule 500 mg PO Q12 post-operative 3 days #6 CAPSULES 12/23/22 [Rx Last Taken Unknown] oxycodone-acetaminophen 5 mg-325 mg tablet (Percocet) 1 tab PO Q8H PRN pain 3 days #10 tabs 12/23/22 [Rx Last Taken Unknown] epinephrine 0.3 mg/0.3 mL injection, auto-injector 0.3 mg IM Q4H 03/28/23 [History Last Taken Unknown] hydrochlorothiazide 12.5 mg tablet 12.5 mg PO DAILY 03/28/23 [History Last Taken Unknown] losartan 50 mg tablet 50 mg PO BID 03/28/23 [History Last Taken Unknown] metformin 500 mg tablet 500 mg PO BID 03/28/23 [History Last Taken Unknown] simvastatin 10 mg tablet 10 mg PO DAILY 03/28/23 [History Last Taken Unknown] Allergy/AdvReac Type Severity Reaction Status Date / Time codeine Allergy Anaphylaxis Verified 03/28/23 09:45 Iodinated Contrast Media Allergy Anaphylaxis Verified 03/28/23 09:45 [iv contrast dye] shellfish derived Allergy Nausea/Vom/ Verified 03/28/23 09:45 Diarrhea Sulfa (Sulfonamide Allergy Anaphylaxis Verified 03/28/23 09:45 Antibiotics) pineapple [Pineapple] AdvReac Nausea/Vom/ Verified 03/28/23 09:45 Diarrhea squash AdvReac Nausea/Vom/ Verified 03/28/23 09:45 Diarrhea walnut AdvReac Nausea/Vom/ Verified 03/28/23 09:45 Diarrhea Family History Father Myocardial infarction Hypertension Mother Heart disease Hypertension Grandmother Heart disease Hypertension Surgical History H/O laparoscopy H/O: hysterectomy History of lateral meniscus repair of left knee Hx of arthroscopy of right knee Hx of breast reduction, elective Labral tear of left hip joint Plantar fascia syndrome Social History Smoking Status: Former smoker alcohol intake: current details: social substance use type: does not use caffeine: Yes frequency: 3-4 times per week seatbelt use: always do you feel safe at home: Yes additional social history: seperated ROS ROS ED Constitutional Constitutional ED: Denies chills, fever(s) or sweats Eyes Eyes: Denies change in vision ENT ENT ED: Denies dysphagia or sore throat Cardiovascular Cardiovascular: Denies chest pain, leg edema, palpitations or racing heartbeat Respiratory/Chest Respiratory/Chest: Denies cough, dyspnea or dyspnea on exertion Gastrointestinal Gastrointestinal: Reports abdominal pain; Denies diarrhea, nausea or vomiting Genitourinary Genitourinary ED: Denies dysuria, hematuria or urinary frequency Musculoskeletal Musculoskeletal: Denies back pain, extremity pain or neck pain Integumentary Denies rash or wounds Neurologic Neurologic: Denies headache(s), paresthesias or weakness EXAM Physical Exam Const Vital Signs: 03/28/23 09:43 03/28/23 11:34 Temperature 97.7 F L Temperature Source Temporal Pulse Rate 77 66 Respiratory Rate 14 16 Blood Pressure 153/94 H 158/99 H Blood Pressure Mean 113 118 Pulse Ox 100 100 Oxygen Delivery Method Room Air Room Air Positive well nourished and well developed General Appearance ED: well developed and NAD HEENT Reports moist mucous membranes normocephalic and atraumatic Eyes PERRL, EOMs intact bilaterally and conjunctivae normal General Eye ED: Yes normal appearance of both eyes Neck no lymphadenopathy and supple General: Negative for tenderness Chest Wall Chest Narrative: Scar line under right breast from previous reduction this past July. There is no rash no tenderness in this region. Chest: Negative for tenderness Resp normal respiratory effort and normal air movement Effort and Inspection: symmetric chest movement; Negative for respiratory distress Cardio regular rate, regular rhythm and no murmurs Peripheral Pulses: pulses 2+ throughout GI normal to inspection, nondistended, normoactive bowel sounds and non-tender GI Narrative: Negative Collins's or McBurney's tenderness. Palpation: Negative for guarding or rebound tenderness present Back/Spine no CVA tenderness and no thoracic nor lumbar tenderness Extremity normal to inspection General Extremety ED: Negative for edema or tenderness General Extremity: Negative for edema Neuro oriented x3 and no sensory deficits noted Sensorium / Orientation: awake and alert Skin no rashes or lesions noted and no wounds MDM MDM MDM Narrative Medical decision making narrative: Interventions / MDM: Differential diagnosis: Abdominal pain nonspecific, Diagnosis considered but do not suspect: Cholecystitis, ultrasound negative for this. Pulmonary embolism however no dyspnea or hypoxia. No current rash for concerns of shingles. My EKG interpretation: N/A Imaging independently reviewed and interpreted by myself: Right upper quadrant ultrasound: Fatty liver normal gallbladder structures. Small angiomyolipoma right kidney. Read by radiology. External documents reviewed: N/A Test considered but not ordered:N/A ED course: Patient nontoxic no reproducible pain. Sent here for gallbladder concerns. Abdominal labs and ultrasound ordered. Abdominal labs are normal ultrasound negative for gallbladder issues. Fatty liver that is known to the patient. Discussed the benign angiomyolipoma findings incidentally found. This will be monitored and she will follow-up with her PCP. All questions were answered. Re-evaluation: stable Disposition discussed with patient/family/significant other: Case discussed with consulting clinician: N/A This note was generated with [employer] dictation software. It may contain incorrect words, spelling, and punctuation that were not noted in checking the note before signing. Lab Data Attestation: I reviewed the patient's lab results. Labs: Laboratory Results - last 24 hr 03/28/23 10:00 WBC 5.6 RBC 4.33 Hgb 13.5 Hct 39.1 MCV 90.3 MCH 31.2 MCHC 34.5 RDW Std Deviation 41.6 RDW Coeff of Delia 12.5 Plt Count 283 MPV 10.1 Immature Gran % (Auto) 0.200 Neut % (Auto) 61.0 Lymph % (Auto) 27.3 Marion % (Auto) 8.7 Eos % (Auto) 2.3 Baso % (Auto) 0.5 Absolute Neuts (auto) 3.4 Absolute Lymphs (auto) 1.53 Nucleated RBC % 0 Sodium 138 Potassium 3.9 Chloride 107 Carbon Dioxide 27.0 Anion Gap 4 L BUN 14 Creatinine 0.64 Estim Creat Clear Calc 124.27 Est GFR (MDRD) Af Amer 124 Est GFR (MDRD) Non-Af 103 BUN/Creatinine Ratio 21.9 H Glucose 101 Calcium 9.6 Total Bilirubin 0.40 AST 12 L ALT 19 Alkaline Phosphatase 70 Total Protein 7.3 Albumin 4.0 Globulin 3.3 Albumin/Globulin Ratio 1.2 Lipase 47 Radiography Diagnostic Testing: Clinical Impression(s) from Imaging Studies Gallbladder Ultrasound 03/28/23 09:54 IMPRESSION: Hepatomegaly. Findings suggestive of a subcentimeter angiomyolipoma in the upper pole of the right kidney. Electronically Signed: Thanh Bray MD at 11:07 EST , Discharge Plan Triage Chief Complaint: Abd Pain ED Provider: Richie Lai Dx/Rx/DC Orders Clinical Impression: Abdominal pain, RUQ, Fatty liver, Angiomyolipoma of right kidney Instructions: Abdominal Pain Prescriptions: No Action Mounjaro 12.5 mg/0.5 mL pen injector 12.5 mg subcut QWEEK aspirin 81 MG tablet,chewable 81 mg PO DAILY@0800 Patient Comments: [employer]Want[employer] cholecalciferol (vitamin D3) 1,000 UNIT capsule 1,000 unit PO DAILY Patient Comments: Supplement calcium carbonate 600 MG tablet 300 mg PO BID Patient Comments: supplement glucosamine sulf-chondroitinSA 1 EACH capsule 1 ea PO BID Patient Comments: supplement pantoprazole 40 MG tablet 40 mg PO DAILY Patient Comments: acid reflux med cetirizine 10 MG capsule 10 mg PO DAILY PRN (Reason: Allergies) meloxicam 15 mg tablet 15 mg PO DAILY venlafaxine 75 mg capsule,extended release 24hr 75 mg PO QHS oxycodone-acetaminophen [Percocet] 5-325 mg tablet 1 tab PO Q8H PRN (Reason: pain) 3 Days Qty: 10 0RF cephalexin [cephalexin] 500 mg capsule 500 mg PO Q12 3 Days Qty: 6 0RF epinephrine 0.3 mg/0.3 mL auto-injector 0.3 mg IM Q4H hydrochlorothiazide 12.5 mg tablet 12.5 mg PO DAILY losartan 50 mg tablet 50 mg PO BID metformin 500 mg tablet 500 mg PO BID simvastatin 10 mg tablet 10 mg PO DAILY Primary Care Provider: Buddy Hui Referrals: Buddy Hui MD [Primary Care Provider] - 1 Week Activity Restrictions/Additional Instructions: Abdominal labs are normal. Pancreas enzymes normal liver enzymes normal levels. Ultrasound your gallbladder region normal gallbladder structures. You have a fatty liver. You have a benign growth on your right kidney 8 to 9 mm in size. Monitor symptoms and follow-up with your doctor. Disposition Disposition: Home, Self Care What to do if you have Problems For any increased pain, shortness of breath, bleeding, nausea or vomiting, chestpain, or any unexpected problems, contact your Primary Care Provider. Call [facility] ([phone]) or report to the closest Emergency Room. Call 911 if necessary. 03/28/23 1316 <Electronically signed by Richie Ramey> Cosigner Signature (if applicable): CC: Dr. Buddy Hui MD ~ Signed [facility] Work Phone: [phone]) 501-275601-29-2024 Hospital Discharge instructions Additional Instructions Abdominal labs are normal. Pancreas enzymes normal liver enzymes normal levels. Ultrasound your gallbladder region normal gallbladder structures. You have a fatty liver. You have a benign growth on your right kidney 8 to 9 mm in size. Monitor symptoms and follow-up with your doctor.[facility] Work Phone: 1(786) 223-518610-26-2023 Procedure [facility] 11-05-2022 Miscellaneous Notes* Telephone Encounter - Cecille Block Ma - 11/05/2022 9:15 AM EDT [employer] message sent to pt notifying her of message below. Cecille Block Ma * Telephone Encounter - Antonio Hui MD - 11/05/2022 9:01 AM EDT Labs reordered. Come in for blood and urine in 1 week. documented in this encounterCl[facility]07-03-2023 Miscellaneous Notes* Telephone Encounter - Suzy Meier LPN - 08/30/2022 2:18 PM EDT Patient has been identified by name and [...] you. Suzy Meier LPN documented in this encounterClinton [facility] Hospital06-23-2023 Miscellaneous Notes* Addendum Note - Karla Ocampo APRN.CNP - 08/20/2022 2:26 PM EDTAddended by: KARLA OCAMPO on: 08/20/2022 02:26 PM Modules accepted: Orders documented in this encounterClinton [facility] Hospital06-20-2023 Miscellaneous Notes* Telephone Encounter - Lena Marquis MA - 08/17/2022 3:18 PM EDT Patient active MyChart. Patient notified via [employer] message. The following approved medication requests have been transmitted electronically. Requested Prescriptions Signed Prescriptions Disp Refills tirzepatide (MOUNJARO) 12.5 mg/0.5 mL pen injector 6 mL 1 Sig: Inject 12.5 mg subcutaneously one time a week. Lena Marquis MA * Telephone Encounter - Antonio Hui MD - 08/17/2022 1:59 PM EDT 90 day rx for 12.5 mg mounjaro sent as requested. documented in this encounterCl[facility]06-15-2023 History of Present illness Narrative* Antonio Hui MD - 08/12/2022 4:21 PM EDT Chief Complaint Patient presents with: Follow Up: 6 month HPI Fantasma Rhoades is a 52 year old female who presents here today for Above Complaints. DIABETES MELLITUS: Ms. Rhoades was last seen 6 months ago. Since our last visit she denies excessivethirst or increased frequency of urination, numbness, tingling [...] reduction last week with Dr. Martin at [facility] without complications. Has follow up in 1 [...] disease), cervical DDD (degenerative disc disease), lumbar Hetal Ortho-Dr Castillo Diabetes mellitus type II (HCC) [...] Hypertension Father Coronary Artery Disease Father 59 [place] in 2010- LDa Thyroid Sister Thyroid Sister Heart Maternal Grandmother Rheumatologic disease Paternal Grandmother arthritis Patient Allergies ALLERGIES Allergen Reactions Michael GI Upset Codeine Anaphylaxis Contrast Dye Anaphylaxis Shellfish Containin* GI Upset Squash GI Upset Strawberries Other: See Comments nose and mouth tingle Sulfa Dyne Anaphylaxis Anchor GI Upset Current Medications Current Outpatient Medications [...] mid stage of healing. Mildly TTP. Warm totouch, but this is symmetrical. No apparent cellulitis, abscess or purulent drainage. Patient refused negative checker for this exam. Abdomen: Normal abdominal exam, [...] SCRN Antonio Hui MD documented in this encounterClinton [facility] Hospital05-15-2023 Miscellaneous Notes* Telephone Encounter - Isidra Chi LPN - 07/12/2022 2:16 PM EDT Latrice with [facility] calls to report that pt would like to start using this mail-in pharmacy. Request was for meloxicam 15 mg tab. Gunjan Pollard that last rx was 06/21/22 for 3 month supply.Pt is not ready for a new rx at this time. Latrice reports she will advise pt of same. Isidra Chi LPN documented in this encounterClinton [facility] Hospital05-12-2023 Miscellaneous Notes* Telephone Encounter - Kimmie Chávez Ma - 07/09/2022 2:20 PM EDT PA approved and patient was left voicemail on cell phone CaseId:[id number];Status:Approved;Review Type:Prior Auth;Coverage Start Date:06/09/2022;Coverage End Date:07/09/2023; Kimmie Chávez Ma * Telephone Encounter - Cecille Block Ma - 07/09/2022 12:26 PM EDT Pt wrote into office via [facility] that [employer] is wanting PA on medication, but her local pharmacy didn't need one. Pt notified this has been routed to PA Nurse. Cecille Block Ma documented in this encounterClinton [facility] Hospital05-01-2023 Miscellaneous Notes* Telephone Encounter - Cecille Block Ma - 06/28/2022 1:24 PM EDT See message from pt. Cecille Block Ma documented in this encounterClinton [facility] Hospital04-24-2023 Miscellaneous Notes* Telephone Encounter - Eileen Nagy LPN - 06/21/2022 10:15 AM EDT See MC message. Eileen Nagy LPN * Telephone Encounter - Karla Ocampo APRN.DEEPALI - 06/21/2022 9:42 AM EDT I can reorder the meloxicam- where would she like this sent? Karla Ocampo APRN.CNP documented in this encounterClinton [facility] Hospital03-24-2023 Miscellaneous Notes* Telephone Encounter - Lynn Mathews LPN - 05/21/2022 8:09 AM EDT Spoke with pt and information listed below given. Pt verbalizes understanding. Lynn Mathews LPN * Telephone Encounter - Karla Ocampo APRN.CNP - 05/17/2022 1:23 PM EDT That's great. Prescription sent. Karla Ocampo APRN.CNP * Telephone Encounter - Eileen Nagy LPN - 05/17/2022 1:17 PM EDT Patient would like it sent to [facility] at [address] Says her lowest BS was 99 and that onlyoccurred once. Eileen Nagy LPN * Telephone Encounter - Karla Ocampo APRN.CNP - 05/17/2022 12:14 PM EDT So is she wanting the 12.5 mg sent to [facility] Blood sugar average looks good- has she had any lows? Karla Ocampo APRN.CNP * Telephone Encounter - Lynn Mathews LPN - 05/17/2022 12:01 PM EDT Pt calling and she has not been able to get Monjaro 12.5 sent to [facility], No one has the 10. She wanted [...] you. Lynn Mathews LPN documented in this encounterCl[facility]03-15-2023 History of Present illness Narrative* Ryan Chau RT(R) - 05/12/2022 11:30 AM EDT Radiology Service Progress Note PATIENT NAME: Fantasma Rhoades DATE OF SERVICE: May 12, 2022 TIME: 11:29 AM PATIENT IDENTITY VERIFICATION COMPLETED USING TWO (2) IDENTIFIERS: Name and Date of confirmedby patient verbally. FALL SCREENING: Has the patient had 2 falls in the last year or 1 fall with injury or currently using an Ambulatory Assistive Device (Walker, Cane, Wheelchair, Crutches, etc.)? No PATIENT GENDER DATA: Female. status: : No status: NO. PATIENT RELEVANT IMPLANT DATA REVIEWED: Not Applicable RADIOLOGY DEPARTMENT: Bone Density PERIPHERAL IV DATA: Not applicable SIGNED BY: RT Klever(R) May 12, 2022 11:29 AM documented in this encounterClinton [facility] Hospital02-01-2023 Miscellaneous Notes* Telephone Encounter - Lynn Mathews LPN - 03/31/2022 8:36 AM EST Prescription for the Mounjaro 12.5 was sent to [facility] then cancelled at [facility] thru escript. I gave [facility] the prescription verbally. I called [facility] and cancelled prescription [facility]. [facility] Lynn Mathews LPN * Telephone Encounter - Karla Ocampo APRN.DEEPALI - 03/31/2022 8:08 AM EST Please call patient and let her know I have sent in the increased dose. She needs to monitor blood sugars and notify us if she is getting low blood sugars or feeling symptomatic. Do not skip meals and eat well balanced diet. Dr. Hui recommend she go back to 10 mg when it becomes available. I sent the prescription to [facility]. Please cancel the one sent to [facility] Karla Ocampo APRN.DEEPALI * Telephone Encounter - Lynn Mathews LPN - 03/30/2022 12:22 PM EST Pt called and has 1 injection left on her Mounjaro and now it is on back order till April. Pt asking if you would bump her up to 12.5 and she has found 1 pharmacy that has this and they are holding it for her. [facility] has it. Please advise pt. Lynn Mathews LPN documented in this encounterClinton [facility] Hospital01-24-2023 Miscellaneous Notes* Telephone Encounter - Kimmie Chávez Ma - 03/23/2022 4:02 PM EST Called [facility] to check on PA status since it shows waiting for payer response [facility] could not find PA in system so did and PA is not needed. Called [facility] to change quantity dispense will only cover one month a time. Kimmie Chávez Ma * Telephone Encounter - Kimmie Chávez Ma - 03/10/2022 1:19 PM EST Electronic PA submitted Kimmie Chávez Ma * Telephone Encounter - Kimmie Chávez Ma - 03/10/2022 1:[address] Hui, I sent in a renewal for all Rx except the Mounjaro as our insurance has changed and we are requiredto use [facility]. I did not include MJ because while it may be covered, it does require a coverage review and a PA. Per the [employer] website, the prescriber needs to call [phone] for a coverage review. Relevant information is below: My first does was November 21, 2021 RxBIN: [id number] RxPCN: [id number] RxGrp: [id number] Machines Technician: [id number] ID: [id number] Thank you for all that you do and in advance for helping me get this approval. Fantasma documented in this encounterCl[facility]01-11-2023 Miscellaneous Notes* Telephone Encounter - Kimmie Chávez Ma - 03/10/2022 1:08 PM EST TE created for prior auth Kimmie Chávez Ma * Telephone Encounter - Antonio Hui MD - 03/09/2022 5:30 PM EST Please initiate PA for Mounjaro per patient request. * Telephone Encounter - Eileen Nagy LPN - 03/09/2022 3:58 PM EST See message. Eileen Nagy LPN documented in this encounterClinton [facility] Hospital01-10-2023 Miscellaneous Notes* Telephone Encounter - Lily Iverson LPN - 03/09/2022 3:23 PM EST Please see [facility] message / Insurance and pharmacy changed Patient has been identified by name and date of : Yes Patient phones for refill(s): Requested Prescriptions Pending Prescriptions Disp Refills EPINEPHrine (EPIPEN) 0.3 mg/0.3 mL auto-injector 2 Each 1 Si INJECTION NEEDED IN THIGH pantoprazole DR (PROTONIX) 40 mg tablet 90 tablet 3 Sig: Take 1 tablet by mouth once daily. hydroCHLOROthiazide (HYDRODIURIL, ESIDRIX) 12.5 mg tablet 90 tablet 3 Sig: Take 1 tablet by mouth once daily. metFORMIN (GLUCOPHAGE) 500 mg tablet 180 tablet 3 Sig: Take 1 tablet by mouth twice daily with meals. . losartan (COZAAR) 50 mg tablet 180 tablet 3 Sig: Take two tablets daily simvastatin (ZOCOR) 10 mg tablet 90 tablet 1 Sig: Take 1 tablet by mouth daily at bedtime. Date of last office visit in primary care: 02/11/22 Please advise. Thank you. Lily Iverson LPN documented in this encounterCl[facility] Hospital12-20-2022 Miscellaneous Notes* Telephone Encounter - Eileen Nagy LPN - 02/16/2022 11:27 AM EST I see it was signed but I don't see where it went to? Please advise. Eileen Nagy LPN documented in this encounterClinton [facility] Hospital09-23-2022 Miscellaneous Notes* Telephone Encounter - Kate Hernández Ma - 11/20/2021 12:13 PM EDT Last office visit: 08/04/21 F/u scheduled: 02/05/22 Kate Hernández Ma documented in this encounterClinton [facility] Hospital07-29-2022 Miscellaneous Notes* Telephone Encounter - Jennifer Nelson MD - 09/25/2021 2:32 PM EDT Told patient pathology report - hyperplastic polyp. screening colonoscopy recommended for 10 years Patient acknowledges above. She will return to her PCP for medical care. HM updated and recall letter generated documented in this encounterClinton [facility] Hospital07-26-2022 History and physical note * Jennifer Nelson MD - 09/22/2021 11:30 AM EDT UPDATED HISTORY AND PHYSICAL EXAMINATION SERVICE DATE: 09/22/2021 SERVICE TIME: 11:21 PHYSICAL EXAM MUST BE COMPLETED ON ADMISSION The History and Physical (completed in the past 30 days) has been reviewed and the patient has beenexamined. The contents accurately reflect the patient's condition with the following additions or revisions since the H&P was completed. Examination indicates no changes. This H&P can be found in the Electronic Medical Record. SIGNATURE: Jennifer Nelson MD PATIENT NAME: Fantasma Rhoades DATE: September 22, 2021 TIME: 11:21 AM * Jennifer Nelson MD - 09/22/2021 11:30 AM EDT Images from the original note were not included. HISTORY AND PHYSICAL Fantasma Rhoades 1970 REFERRING PHYSICIAN: Antonio Hui,* CHIEF COMPLAINT: Consult (colonoscopy) HPI: The patient is a 51 year old female referred for endoscopy. Fantasma notes no colon complaints. Patient denies any change in bowel habits, weight changes, blood in stools, black tarry stools or abdominal pain. Denies family history of colon issues. The patient notes no upper GI complaints currently. Fantasma has undergone remote prior endoscopy, records not available. Patient's past medical history is significant for type II diabetes mellitus, degenerative disc disease, obesity, hypertension. Patient follows with Dr. Hui in primary care. PAST MEDICAL HISTORY PAST MEDICAL HISTORY Diagnosis Date Acute meniscal tear of left knee 2013 s/p repair DDD (degenerative disc disease), cervical DDD (degenerative disc disease), lumbar [facility] Castillo Diabetes mellitus type II (HCC) Endometriosis GERD (gastroesophageal reflux disease) Hot flashes Hyperlipidemia Hypertension Labral tear of hip, degenerative left hip, Seeing ortho Morbid obesity with BMI of 40.0-44.9, adult (HCC) Plantar fasciitis of right foot 2013 s/p plantar fasciotomy Seasonal allergies Uterine fibroid s/p hysterectomy PAST SURGICAL HISTORY PAST SURGICAL HISTORY Procedure Laterality Date HYSTERECTOMY HX total robotic hysterectomy, LSO KNEE ARTHROSCOPY Left 2013 meniscal tear LAPS ABD PRTM&OMENTUM DX W/WO SPEC BR/WA SPX Laparoscopy for endometriosis PAST SURGICAL HISTORY OF Left 02/12/2021 Left hip scope with lbral repaire aceabuloplasty debridemtn of ossified labrum chondropslasty synovectomy femoroplasty and ligamentum teres debridement with capsular closure PAST SURGICAL HISTORY OF Right 2015 meniscal tear SCOPE, PLANTAR FASCIOTOMY Right 2013 CURRENT MEDICATIONS Current Outpatient Medications Medication Sig gabapentin (NEURONTIN) 100 mg capsule Take 100 mg by mouth three times daily. simvastatin (ZOCOR) 10 mg tablet Take 1 tablet by mouth daily at bedtime. nabumetone (RELAFEN) 500 mg tablet Take 500 mg by mouth twice daily. pantoprazole DR (PROTONIX) 40 mg tablet Take 1 tablet by mouth once daily. hydroCHLOROthiazide (HYDRODIURIL, ESIDRIX) 12.5 mg tablet Take 1 tablet by mouth once daily. metFORMIN (GLUCOPHAGE) 500 mg tablet Take 1 tablet by mouth twice daily with meals. . losartan (COZAAR) 50 mg tablet Take two tablets daily EPINEPHrine (EPIPEN) 0.3 mg/0.3 mL auto-injector 1 INJECTION NEEDED IN THIGH glucosamine sulfate (GLUCOSAMINE ORAL) Take by mouth twice daily. venlafaxine ER (EFFEXOR XR) 75 mg 24 hr capsule Take 1 capsule by mouth once daily. Cetirizine (ZYRTEC) 10 mg cap Take by mouth. Aspirin 81 mg Tab Take 81 mg by mouth once daily. CALCIUM CARBONATE/VITAMIN D3 (CALTRATE 600 + D ORAL) Take by mouth twice daily. No current facility-administered medications for this visit. ALLERGIES: Michael, Codeine, Contrast Dye, Shellfish Containing Products, Squash, Strawberries, Sulfa Dyne, and Anchor PERSONAL HISTORY: SOCIAL HISTORY Social History Tobacco Use Smoking status: Former Smoker Packs/day: 0.50 Years: 10.00 Pack years: 5.00 Types: Cigarettes Quit date: 04/30/2011 Years since quittin.3 Smokeless tobacco: Never Used Vaping Use Vaping Use: Never used Substance Use Topics Alcohol use: Yes Comment: occasional Drug use: No FAMILY HISTORY: FAMILY HISTORY FAMILY HISTORY Problem Relation Age of Onset Hypertension Mother Heart Failure Mother 64 Heart Mother stents Hypertension Father Coronary Artery Disease Father 59 [place] in 2009- Thyroid Sister Thyroid Sister Heart Maternal Grandmother Rheumatologic disease Paternal Grandmother arthritis REVIEW OF SYMPTOMS: The review of systems data was entered by the nurse and reviewed by ar Nursing Notes: Belkys Silverman LPN 08/25/2021 9:08 AM Signed REVIEW OF SYSTEMS: General: The patient denies fatigue, denies weight loss, denies weight gain, denies feeling hot, and denies feelings of cold. Eyes: The patient denies glaucoma, denies eye injury/surgery, wears glasses or contacts. Ear/Nose/Throat: The patient notes allergies, denies hayfever, denies ear infections, and denies bloody noses. Cardiovascular: The patient denies chest pain, denies heart disease, notes high blood pressure,denies cardiac stent, denies prior heart attack, denies irregular heart beat, notes high cholesterol, denies poor circulation, denies heart failure, other cardiac issues, denies claudication, denies cold feet, denies peripheral arterial stent. Respiratory: The patient denies tuberculosis, denies pneumonia, denies frequent cough, denies pulmonary embolism, denies shortness of breath, and denies coughing up blood. Gastrointestinal: The patient denies difficulty swallowing, notes acid reflux, denies ulcers, denies vomiting, denies jaundice/hepatitis, denies gallbladder problems, denies black or tarry stools, denies hemorrhoids, denies bleeding from rectum, denies diverticulitis, denies constipation, denies diarrhea, denies loss of stool control, and denies hernias. Kidney/Bladder: The patient denies kidney stones, denies urine infections, and denies bloody urine. Skin: The patient denies a history of skin cancer, denies bleeding/changing moles, and denies a history of skin rash. Neurologic: The patient denies a history of epilepsy/convulsions, denies headaches, notes head/spinal injuries, and denies stroke/TIA. Psychiatric: The patient denies psychiatric medications, notes depression, and denies voices, denies substance abuse. Endocrine: The patient denies thyroid disorders, denies diabetes, and denies hormonal problems. Hematologic: The patient denies a history of bruising, denies bleeding, and denies anemia, denies blood clots. Infections: The patient denies a history of measles and mumps, denies rheumatic fever, and denies sexually transmitted diseases. Musculoskeletal: The patient notes back pain/injury, notes back problems, notes sciatica, notes knee/foot trouble, denies arthritis, or denies gout. When was patient's last Mammogram screening? 2021 Last Colonoscopy: 1994 Belkys Silverman LPN I have confirmed and edited as necessary, the PFSH and ROS obtained by others. Francie Laws PA-C PHYSICAL EXAMINATION: General: The patient is 51 year old female, well nourished, well hydrated in no acute distress. Thepatient is oriented to time, place, and person. VITALS: Blood pressure 138/90, pulse 104, temperature 36.2 C (97.2 F), height 170.2 cm (5' 7), weight 135.6 kg (299 lb), SpO2 96 %. Body mass index is 46.83 kg/m . HEENT: Normal cephalic, ataumatic, pupils are equally round, sclera are anicteric, mucous membranesare moist, oropharynx is clear. Neck has no masses, asymmetry or lymphadenopathy. Respiratory: Clear to auscultation and percussion. Normal respiratory excursion and pattern. Cardiac: Examination is regular rate and rhythm. Normal S1/S2 Abdominal exam: Soft, nontender, with no palpable masses. No hepatosplenomegaly. No palpable hernias. Extremities: no clubbing, cyanosis or edema. No adenopathy. LABORATORY VALUES: As Noted RADIOLOGIC STUDIES: As Noted Assessment IMPRESSION: encounter for screening colonoscopy PLAN: I have reviewed my findings with the surgeon. Will plan for lower endoscopy. We discussed therisks and benefits of the planned endoscopy. I have informed the patient that complications can occur including failure to complete the endoscopy and perforation. The patient had the opportunity to ask questions concerning the planned endoscopy. My staff has also explained the procedure to the patient in understandable terms and has given the patient printed material concerning the procedure. Thepatient freely consents to surgery. The patient was offered a surgery/procedure at a [facility] facility. I have counseled the patient regarding the risk of exposure to and/or potential harm posed by the COVID-19 virus with having a surgery/procedure at this time versus the risk of delaying the surgery/procedure. It is not possible to know either the risk of delaying the surgery or procedure or chance of getting an infection with perfect accuracy, but a joint decision was made between the patient and myself to proceed at this time with endoscopy. I have explained to the patient the difference between IV conscious sedation and MAC anesthesia - and I have offered either, according to the patient's wishes. I have explained that with IV conscioussedation there is no anesthesia provider available and therefore there is a limitation of the amount of IV medications that can be given and that the patient may wake up in the middle of the procedure and/or experience pain/discomfort during the procedure. Further discussion was done and the patient was given the opportunity to ask questions and all questions were answered. The patient chooses MAC anesthesia I plan to use Golytely bowel preparation Patient instructed to contact PCP for instructions regarding diabetic medication, which may requireadjustment during bowel preparation and/or day of procedure Diagnoses: (Z12.11) Screening for colon cancer Consultation requested by Dr. Hui for an opinion regarding screening colonoscopy. My final recommendations will be communicated back to the requesting physician by way of shared Medical record orletter to requesting physician via US mail. Francei Laws PA-C documented in this encounterClinton [facility] Hospital07-26-2022 Miscellaneous Notes* Brief Op Note - Jennifer Nelson MD - 09/22/2021 11:30 AM EDT BRIEF OPERATIVE NOTE SURGERY DATE: 09/22/2021 Incision/Procedure Start Time: 11:52 Cecal intubation time: 11:55 Incision Close/Procedure End Time: 12:09 Surgeon(s)/Proceduralist(s) and Practice Advisor(s): Omar Procedures: Colonoscopy with polypectomy Anesthesia: MAC Findings: rectal polyp about 1 cm Estimated Blood Loss: minimal Specimens: rectal polyp Complications: None Preop Diagnosis: screening for colon cancer Postop Diagnosis: rectal polyp, hemorrhoids SIGNATURE: Jennifer Nelson MD PATIENT NAME: Fantasma Rhoades DATE: September 22, 2021 TIME: 12:10 PM documented in this encounterClinton [facility] Hospital06-29-2022 Miscellaneous Notes* Telephone Encounter - Karla Ocampo APRN.CNP - 08/26/2021 7:52 AM EDT Please fax referral to [facility]. Thanks, Karla Ocampo APRN.CNP * Telephone Encounter - Karla Ocampo APRN.CNP - 08/26/2021 7:48 AM EDT Please fax referral to [facility]. Karla Ocampo APRN.CNP documented in this encounterClinton [facility] Hospital06-28-2022 Miscellaneous Notes* Telephone Encounter - Nicole Sawant - 08/25/2021 3:28 PM EDT Called patient and informed of Rivera's message. Per patient will call insurance company and get estimates for each location then call back if patient wants to reschedule from [place] to [facility] * Telephone Encounter - Nicole Sawant - 08/25/2021 3:25 PM EDT Images from the original note were not included. Jeninfer Nelson MD You 45 minutes ago (2:38 PM) She can be scheduled in the ASC, but she should be told that she may not be adequately sedated (there is no anesthesiologist available) and the procedure may be aborted Message text Francie Laws PA-C You; Jennifer Nelson MD 57 minutes ago (2:27 PM) I had recommended she consider MAC as she is on gabapentin and Effexor, which we had discussed may decrease the effectiveness of conscious sedation. She is also borderline BMI for what the surgeons are usually comfortable with inthe [facility]. If Dr. Nelson is OK with the BMI and patient wishes to try having procedure here, I am OK with that Message text Jennifer Nelson MD You 3 hours ago (11:48 AM) Check with Francie, since she saw the patient and I never did. * Telephone Encounter - Nicole Sawant - 08/25/2021 11:18 AM EDT Patient scheduled 09/22 in [place] with for a colonoscopy. Patient reached out to me and was wondering if he can be possibly done in the ASC instead due to receiving an estimate through the portal for this procedure and wanted to check to see if it is possible to get an estimate to have the procedure at the clinic without anesthesia so that I can compare the two options from a financial standpoint. If this patient is okay for the ASC please let me know and I can schedule accordingly at the patients request. Thank you Lilibeth * Telephone Encounter - Nicole Sawant - 08/25/2021 10:03 AM EDT 09/22/2021 COLON LODI documented in this encounterClinton [facility] Hospital06-28-2022 History of Present illness Narrative* Francie Laws PA-C - 08/25/2021 9:11 AM EDT HISTORY AND PHYSICAL Fantasma Rhoades 1970 REFERRING PHYSICIAN: Antonio Hui,* CHIEF COMPLAINT: Consult (colonoscopy) HPI: The patient is a 51 year old female referred for endoscopy. Fantasma notes no colon complaints. Patient denies any change in bowel habits, weight changes, blood in stools, black tarry stools or abdominal pain. Denies family history of colon issues. The patient notes no upper GI complaints currently. Fantasma has undergone remote prior endoscopy, records not available. Patient's past medical history is significant for type II diabetes mellitus, degenerative disc disease, obesity, hypertension. Patient follows with Dr. Hui in primary care. PAST MEDICAL HISTORY Diagnosis Date Acute meniscal tear of left knee 2013 s/p repair DDD (degenerative disc disease), cervical DDD (degenerative disc disease), lumbar [place] [facility] Castillo Diabetes mellitus type II (HCC) Endometriosis GERD (gastroesophageal reflux disease) Hot flashes Hyperlipidemia Hypertension Labral tear of hip, degenerative left hip, Seeing ortho Morbid obesity with BMI of 40.0-44.9, adult (HCC) Plantar fasciitis of right foot 2013 s/p plantar fasciotomy Seasonal allergies Uterine fibroid s/p hysterectomy PAST SURGICAL HISTORY Procedure Laterality Date HYSTERECTOMY HX total robotic hysterectomy, LSO KNEE ARTHROSCOPY Left 2013 meniscal tear LAPS ABD PRTM&OMENTUM DX W/WO SPEC BR/WA SPX Laparoscopy for endometriosis PAST SURGICAL HISTORY OF Left 02/12/2021 Left hip scope with lbral repaire aceabuloplasty debridemtn of ossified labrum chondropslasty synovectomy femoroplasty and ligamentum teres debridement with capsular closure PAST SURGICAL HISTORY OF Right 2015 meniscal tear SCOPE, PLANTAR FASCIOTOMY Right 2013 Current Outpatient Medications Medication Sig gabapentin (NEURONTIN) 100 mg capsule Take 100 mg by mouth three times daily. simvastatin (ZOCOR) 10 mg tablet Take 1 tablet by mouth daily at bedtime. nabumetone (RELAFEN) 500 mg tablet Take 500 mg by mouth twice daily. pantoprazole DR (PROTONIX) 40 mg tablet Take 1 tablet by mouth once daily. hydroCHLOROthiazide (HYDRODIURIL, ESIDRIX) 12.5 mg tablet Take 1 tablet by mouth once daily. metFORMIN (GLUCOPHAGE) 500 mg tablet Take 1 tablet by mouth twice daily with meals. . losartan (COZAAR) 50 mg tablet Take two tablets daily EPINEPHrine (EPIPEN) 0.3 mg/0.3 mL auto-injector 1 INJECTION NEEDED IN THIGH glucosamine sulfate (GLUCOSAMINE ORAL) Take by mouth twice daily. venlafaxine ER (EFFEXOR XR) 75 mg 24 hr capsule Take 1 capsule by mouth once daily. Cetirizine (ZYRTEC) 10 mg cap Take by mouth. Aspirin 81 mg Tab Take 81 mg by mouth once daily. CALCIUM CARBONATE/VITAMIN D3 (CALTRATE 600 + D ORAL) Take by mouth twice daily. No current facility-administered medications for this visit. ALLERGIES: Michael, Codeine, Contrast Dye, Shellfish Containing Products, Squash, Strawberries, Sulfa Dyne, and Anchor PERSONAL HISTORY: Social History Tobacco Use Smoking status: Former Smoker Packs/day: 0.50 Years: 10.00 Pack years: 5.00 Types: Cigarettes Quit date: 04/30/2011 Years since quittin.3 Smokeless tobacco: Never Used Vaping Use Vaping Use: Never used Substance Use Topics Alcohol use: Yes Comment: occasional Drug use: No FAMILY HISTORY: FAMILY HISTORY Problem Relation Age of Onset Hypertension Mother Heart Failure Mother 64 Heart Mother stents Hypertension Father Coronary Artery Disease Father 59 [place] in 2009- Thyroid Sister Thyroid Sister Heart Maternal Grandmother Rheumatologic disease Paternal Grandmother arthritis REVIEW OF SYMPTOMS: The review of systems data was entered by the nurse and reviewed by ar Nursing Notes: Belkys Silverman LPN 08/25/2021 9:08 AM Signed REVIEW OF SYSTEMS: General: The patient denies fatigue, denies weight loss, denies weight gain, denies feeling hot, and denies feelings of cold. Eyes: The patient denies glaucoma, denies eye injury/surgery, wears glasses or contacts. Ear/Nose/Throat: The patient notes allergies, denies hayfever, denies ear infections, and denies bloody noses. Cardiovascular: The patient denies chest pain, denies heart disease, notes high blood pressure,denies cardiac stent, denies prior heart attack, denies irregular heart beat, notes high cholesterol, denies poor circulation, denies heart failure, other cardiac issues, denies claudication, denies cold feet, denies peripheral arterial stent. Respiratory: The patient denies tuberculosis, denies pneumonia, denies frequent cough, denies pulmonary embolism, denies shortness of breath, and denies coughing up blood. Gastrointestinal: The patient denies difficulty swallowing, notes acid reflux, denies ulcers, denies vomiting, denies jaundice/hepatitis, denies gallbladder problems, denies black or tarry stools, denies hemorrhoids, denies bleeding from rectum, denies diverticulitis, denies constipation, denies diarrhea, denies loss of stool control, and denies hernias. Kidney/Bladder: The patient denies kidney stones, denies urine infections, and denies bloody urine. Skin: The patient denies a history of skin cancer, denies bleeding/changing moles, and denies a history of skin rash. Neurologic: The patient denies a history of epilepsy/convulsions, denies headaches, notes head/spinal injuries, and denies stroke/TIA. Psychiatric: The patient denies psychiatric medications, notes depression, and denies voices, denies substance abuse. Endocrine: The patient denies thyroid disorders, denies diabetes, and denies hormonal problems. Hematologic: The patient denies a history of bruising, denies bleeding, and denies anemia, denies blood clots. Infections: The patient denies a history of measles and mumps, denies rheumatic fever, and denies sexually transmitted diseases. Musculoskeletal: The patient notes back pain/injury, notes back problems, notes sciatica, notes knee/foot trouble, denies arthritis, or denies gout. When was patient's last Mammogram screening? 2021 Last Colonoscopy: 1994 Belkys Silverman LPN I have confirmed and edited as necessary, the PFSH and ROS obtained by others. Francie Laws PA-C PHYSICAL EXAMINATION: General: The patient is 51 year old female, well nourished, well hydrated in no acute distress. Thepatient is oriented to time, place, and person. VITALS: Blood pressure 138/90, pulse 104, temperature 36.2 C (97.2 F), height 170.2 cm (5' 7), weight 135.6 kg (299 lb), SpO2 96 %. Body mass index is 46.83 kg/m . HEENT: Normal cephalic, ataumatic, pupils are equally round, sclera are anicteric, mucous membranesare moist, oropharynx is clear. Neck has no masses, asymmetry or lymphadenopathy. Respiratory: Clear to auscultation and percussion. Normal respiratory excursion and pattern. Cardiac: Examination is regular rate and rhythm. Normal S1/S2 Abdominal exam: Soft, nontender, with no palpable masses. No hepatosplenomegaly. No palpable hernias. Extremities: no clubbing, cyanosis or edema. No adenopathy. LABORATORY VALUES: As Noted RADIOLOGIC STUDIES: As Noted Assessment IMPRESSION: encounter for screening colonoscopy PLAN: I have reviewed my findings with the surgeon. Will plan for lower endoscopy. We discussed therisks and benefits of the planned endoscopy. I have informed the patient that complications can occur including failure to complete the endoscopy and perforation. The patient had the opportunity to ask questions concerning the planned endoscopy. My staff has also explained the procedure to the patient in understandable terms and has given the patient printed material concerning the procedure. Thepatient freely consents to surgery. The patient was offered a surgery/procedure at a [facility] facility. I have counseled the patient regarding the risk of exposure to and/or potential harm posed by the COVID-19 virus with having a surgery/procedure at this time versus the risk of delaying the surgery/procedure. It is not possible to know either the risk of delaying the surgery or procedure or chance of getting an infection with perfect accuracy, but a joint decision was made between the patient and myself to proceed at this time with endoscopy. I have explained to the patient the difference between IV conscious sedation and MAC anesthesia - and I have offered either, according to the patient's wishes. I have explained that with IV conscioussedation there is no anesthesia provider available and therefore there is a limitation of the amount of IV medications that can be given and that the patient may wake up in the middle of the procedure and/or experience pain/discomfort during the procedure. Further discussion was done and the patient was given the opportunity to ask questions and all questions were answered. The patient chooses MAC anesthesia I plan to use Golytely bowel preparation Patient instructed to contact PCP for instructions regarding diabetic medication, which may requireadjustment during bowel preparation and/or day of procedure Diagnoses: (Z12.11) Screening for colon cancer Consultation requested by Dr. Hui for an opinion regarding screening colonoscopy. My final recommendations will be communicated back to the requesting physician by way of shared Medical record orletter to requesting physician via US mail. Francie Laws PA-C documented [facility] Nurse Note* Belkys Silverman, BLACK POWDER GLAZING OPERATOR - 08/25/2021 9:07 AM EDT REVIEW OF SYSTEMS: General: The patient denies fatigue, denies weight loss, denies weight gain, denies feeling hot, and denies feelings of cold. Eyes: The patient denies glaucoma, denies eye injury/surgery, wears glasses or contacts. Ear/Nose/Throat: The patient notes allergies, denies hayfever, denies ear infections, and denies bloody noses. Cardiovascular: The patient denies chest pain, denies heart disease, notes high blood pressure,denies cardiac stent, denies prior heart attack, denies irregular heart beat, notes high cholesterol, denies poor circulation, denies heart failure, other cardiac issues, denies claudication, denies cold feet, denies peripheral arterial stent. Respiratory: The patient denies tuberculosis, denies pneumonia, denies frequent cough, denies pulmonary embolism, denies shortness of breath, and denies coughing up blood. Gastrointestinal: The patient denies difficulty swallowing, notes acid reflux, denies ulcers, denies vomiting, denies jaundice/hepatitis, denies gallbladder problems, denies black or tarry stools, denies hemorrhoids, denies bleeding from rectum, denies diverticulitis, denies constipation, denies diarrhea, denies loss of stool control, and denies hernias. Kidney/Bladder: The patient denies kidney stones, denies urine infections, and denies bloody urine. Skin: The patient denies a history of skin cancer, denies bleeding/changing moles, and denies a history of skin rash. Neurologic: The patient denies a history of epilepsy/convulsions, denies headaches, notes head/spinal injuries, and denies stroke/TIA. Psychiatric: The patient denies psychiatric medications, notes depression, and denies voices, denies substance abuse. Endocrine: The patient denies thyroid disorders, denies diabetes, and denies hormonal problems. Hematologic: The patient denies a history of bruising, denies bleeding, and denies anemia, denies blood clots. Infections: The patient denies a history of measles and mumps, denies rheumatic fever, and denies sexually transmitted diseases. Musculoskeletal: The patient notes back pain/injury, notes back problems, notes sciatica, notes knee/foot trouble, denies arthritis, or denies gout. When was patient's last Mammogram screening? 2021 Last Colonoscopy: 1994 Belkys Silverman LPN documented [facility] Miscellaneous Notes* Telephone Encounter - Karla Ocampo APRN.CNP - 08/24/2021 11:23 AM EDT Order for hepatitis B placed. Karla Ocampo APRN.CNP * Telephone Encounter - Sharita Malave LPN - 08/24/2021 10:44 AM EDT Patient scheduled for nurse visit 09/04/21 to receive Hepatitis B vaccine. Please place order at thistime. Sharita Malave LPN documented in this encounterCl[facility] Miscellaneous Notes* Telephone Encounter - Francie Marshall RN - 08/11/2021 12:01 PM EDT Pt called and is notified of providers message and instructions. Pt voices understanding. Francie Marshall RN * Telephone Encounter - Karla Ocampo APRN.CNP - 08/11/2021 11:54 AM EDT I would recommend she see the back ortho doctor. Karla Ocampo APRN.CNP * Telephone Encounter - Francie Marshall RN - 08/11/2021 11:48 AM EDT Pt called and is notified of providers message and instructions. Pt reports she just had injectionsin her back L5-S1, and has cervical damage, and degenerative disc disease. She reports the N/T in [place] down to fingers has been going on for a couple of weeks. She wants to know if she should come see PCP or go see her back ortho provider. Please call and advise. Francie Marshall RN * Telephone Encounter - Karla Ocampo APRN.CNP - 08/11/2021 11:33 AM EDT Needs to schedule appointment for numbness and tingling. Karla Ocampo APRN.CNP documented in this encounterCl[facility]06[facility]22 Miscellaneous Notes* Telephone Encounter - Francie Marshall RN - 08/11/2021 11:46 AM EDT Called Pt and answered message in providers Telephone encounter. documented in this encounterCl[facility] Miscellaneous Notes* Telephone Encounter - Karla Ocampo APRN.CNP - 08/11/2021 9:53 AM EDT Patient needs appointment to discuss her numbness and tingling. Karla Ocampo APRN.CNP documented in this encounterCl[facility]06[facility]22 History of Present illness Narrative* Antonio Hui MD - 08/04/2021 4:06 PM EDT Chief Complaint Patient presents with: Follow Up: 6 month HPI Fantasma Rhoades is a 51 year old female who presents here today for Above Complaints. Left hip pain improved after left hip scope with labral repair on 02/12/21. Ambulating without asssitance. Completed PT. Has final follow up with ortho at the end of this month. Received epidural steroid injection in lumbar spine for DDD through Dr. Nunes's office and pain is improved. No reported complications. Records not available today. Recommended f/u PRN. DIABETES MELLITUS: Ms. Rhoades was last seen 6 months ago. Since our last visit she denies excessivethirst or increased frequency of urination, numbness, tingling or pain in extremities, new or unusual visual symptoms and low sugar/hypoglycemic reactions. Follows a diabetic diet most of the time. She is compliant with medication(s) and is tolerating med(s) without any side effects. She reports checking her glucose on a infrequent to not at all basis. Patient's last HgA1C was Hemoglobin A1C (%) Date Value 08/03/2021 5.7 01/31/2021 5.6 08/18/2020 5.8 ) Last Ophthalmology exam was within the past 12 months Last Podiatry exam was within the past 12 months GERD controlled on PPI. Symptoms return without pantoprazole. Would like to continue on current dosage. BP in good range on current regimen. Weight is up recently despite regular exercise. Has not been consistent with low carb/cholesterol diet. Refusing additional labs today. Insurance will not cover her to go see site medical director. Due for hepatitis B vaccine. Remembers testing years ago showing she was not immune. Would like first shot today. Past medical history, appointments, medications, allergies reviewed. Previous Medical History PAST MEDICAL HISTORY Diagnosis Date Acute meniscal tear of left knee 2013 s/p repair DDD (degenerative disc disease), cervical DDD (degenerative disc disease), lumbar [facility]-Dr Castillo Diabetes mellitus type II (HCC) Endometriosis GERD (gastroesophageal reflux disease) Hot flashes Hyperlipidemia Hypertension Labral tear of hip, degenerative left hip, Seeing ortho Morbid obesity with BMI of 40.0-44.9, adult (HCC) Plantar fasciitis of right foot 2013 s/p plantar fasciotomy Seasonal allergies Uterine fibroid s/p hysterectomy Previous Surgical History PAST SURGICAL HISTORY Procedure Laterality Date HYSTERECTOMY HX total robotic hysterectomy, LSO KNEE ARTHROSCOPY Left 2013 meniscal tear LAPS ABD PRTM&OMENTUM DX W/WO SPEC BR/WA SPX Laparoscopy for endometriosis SCOPE, PLANTAR FASCIOTOMY Right 2014 Family History FAMILY HISTORY Problem Relation Age of Onset Hypertension Mother Heart Failure Mother 64 Heart Mother stents Hypertension Father Coronary Artery Disease Father 59 [place] in 2010- LDa Thyroid Sister Thyroid Sister Heart Maternal Grandmother Rheumatologic disease Paternal Grandmother arthritis Patient Allergies ALLERGIES Allergen Reactions Michael GI Upset Codeine Anaphylaxis Contrast Dye Anaphylaxis Shellfish Containin* GI Upset Squash GI Upset Strawberries Other: See Comments nose and mouth tingle Sulfa Dyne Anaphylaxis Anchor GI Upset Current Medications Current Outpatient Medications on File Prior to Visit Medication Sig nabumetone (RELAFEN) 500 mg tablet Take 500 mg by mouth once daily. pantoprazole DR (PROTONIX) 40 mg tablet Take 1 tablet by mouth once daily. hydroCHLOROthiazide (HYDRODIURIL, ESIDRIX) 12.5 mg tablet Take 1 tablet by mouth once daily. metFORMIN (GLUCOPHAGE) 500 mg tablet Take 1 tablet by mouth twice daily with meals. . losartan (COZAAR) 50 mg tablet Take two tablets daily EPINEPHrine (EPIPEN) 0.3 mg/0.3 mL auto-injector 1 INJECTION NEEDED IN THIGH glucosamine sulfate (GLUCOSAMINE ORAL) Take by mouth twice daily. simvastatin (ZOCOR) 5 mg tablet Take 1 tablet by mouth daily at bedtime. venlafaxine ER (EFFEXOR XR) 75 mg 24 hr capsule Take 1 capsule by mouth once daily. Cetirizine (ZYRTEC) 10 mg cap Take by mouth. Aspirin 81 mg Tab Take 81 mg by mouth. CALCIUM CARBONATE/VITAMIN D3 (CALTRATE 600 + D ORAL) Take by mouth. No current facility-administered medications on file prior to visit. Social History Social History Tobacco Use Smoking status: Former Smoker Packs/day: 0.50 Years: 10.00 Pack years: 5.00 Types: Cigarettes Quit date: 04/30/2011 Years since quittin.2 Smokeless tobacco: Never Used Substance Use Topics Alcohol use: Yes Comment: occasional Drug use: No Review of Symptoms REVIEW OF SYSTEMS GENERAL: No weight loss, malaise or fevers RESPIRATORY: Negative for cough, hemoptysis, wheezing, COPD, dyspnea or shortness of breath CARDIOVASCULAR: Negative for chest pain, leg swelling, hypertension, CHF or palpitations GI: No nausea, vomiting, or diarrhea SKIN: Negative for lesions, rash, and itching EXAM: BP 136/78 Pulse 79 Resp 16 Wt 135.7 kg (299 lb 3.2 oz) SpO2 98% BMI 46.86 kg/m General Appearance: Well appearing, alert, in no acute distress, well-hydrated, well nourished.. Skin: Skin color, texture, turgor normal, no suspicious rashes or lesions. Lungs: Lungs clear to auscultation. No wheezing, rhonchi, rales.. Heart: RRR without murmur, gallop, or rubs. No ectopy. Abdomen: Normal abdominal exam, Abdomen soft, non-tender. Bowel sounds normal. No masses, organomegaly. Extremities: No deformities, edema, skin discoloration, clubbing or cyanosis. Good capillary refill. . Health Maintenance List HEPATITIS C SCREENING Never done HIV SCREENING Never done BP CONTROLLED (<130/80) Never done HEPATITIS B(1 of 3 - Risk 3-dose series) Never done COLORECTAL CANCER SCREENING Never done SHINGRIX VACCINE(1 of 2) Never done COVID-19 VACCINE(3 - Booster for Moderna series) due on 05/16/2021 MAMMOGRAM due on 07/07/2021 PNEUMOCOCCAL(1 - PCV) due on 02/03/2022 DEPRESSION SCREENING due on 08/14/2021 INFLUENZA(Season Ended) due on 10/29/2021 DILATED RETINAL EXAM due on 12/25/2021 URINE ALBUMIN:CREATININE RATIO due on 01/31/2022 HBA1C due on 02/02/2022 DIABETIC FOOT EXAM due on 02/03/2022 ANNUAL PCP TEAM CHRONIC DISEASE VISIT due on 02/03/2022 LDL CHOLESTEROL due on 08/03/2022 DTAP,TDAP,TD(2 - Td or Tdap) due on 10/20/2022 PAP TESTING Discontinued HPV TESTING Discontinued Data reviewed Component Latest Ref Rng & Units 01/31/2021 08/03/2021 Protein, Total 6.3 - 8.0 g/dL 6.4 6.8 Albumin 3.9 - 4.9 g/dL 4.3 4.3 Calcium 8.5 - 10.2 mg/dL 9.2 9.7 Bilirubin, Total 0.2 - 1.3 mg/dL 0.2 0.2 Alkaline Phosphatase 34 - 123 U/L 87 96 AST 13 - 35 U/L 21 19 Glucose 74 - 99 mg/dL 86 120 (H) BUN 7 - 21 mg/dL 18 13 Creatinine 0.58 - 0.96 mg/dL 0.62 0.54 (L) Sodium 136 - 144 mmol/L 142 140 Potassium 3.7 - 5.1 mmol/L 4.0 4.1 Chloride 97 - 105 mmol/L 104 104 CO2 22 - 30 mmol/L 27 23 Anion Gap 9 - 18 mmol/L 11 13 ALT 7 - 38 U/L 27 25 eGFR- >60 eGFR-All Other Races . >60 eGFR >=60 mL/min/1.73m 110 WBC 3.70 - 11.00 k/uL 7.53 6.53 RBC 3.90 - 5.20 m/uL 4.25 4.26 Hemoglobin 11.5 - 15.5 g/dL 13.6 13.0 Hematocrit 36.0 - 46.0 % 42.1 39.1 MCV 80.0 - 100.0 fL 99.1 91.8 MCH 26.0 - 34.0 pg 32.0 30.5 MCHC 30.5 - 36.0 g/dL 32.3 33.2 RDW-CV 11.5 - 15.0 % 12.5 13.2 Platelet Count 150 - 400 k/uL 276 254 MPV 9.0 - 12.7 fL 12.1 12.0 Absolute nRBC <0.01 k/uL <0.01 <0.01 Cholesterol, Total <200 mg/dL 213 (H) Triglyceride <150 mg/dL 127 HDL Cholesterol >39 mg/dL 59 Non HDL Cholesterol <130 mg/dL 154 (H) Fasting Time hrs 11 VLDL Cholesterol <30 mg/dL 25 TC:HDL Ratio <5.10 3.61 LDL Cholesterol <100 mg/dL 129 (H) LDL:HDL Ratio <2.54 2.19 Total Cholesterol, Nonfasting <200 mg/dL 186 Triglycerides, Nonfasting <150 mg/dL 95 HDL Cholesterol, Nonfasting >39 mg/dL 50 LDL Cholesterol, Nonfasting <100 mg/dL 117 (H) Non HDL Cholesterol, Nonfasting <130 mg/dL 136 (H) VLDL Cholesterol, Nonfasting <30 mg/dL 19 Total Chol/HDL Ratio, Nonfasting <5.10 mg/dL 3.72 LDL/HDL Ratio, Nonfasting <2.54 mg/dL 2.34 Creatinine, Ur Random (UCRR) 20 - 300 mg/dL 171.6 Albumin, Urine Random mg/L <12.0 Albumin/Creat Ratio <30 mg/g Not calculated Hemoglobin A1C 4.3 - 5.6 % 5.6 5.7 (H) Estimated Average Glucose mg/dL 114 117 ASSESSMENT/PLAN: 1. Diabetes mellitus type II (HCC) - ICD9: 250.00, ICD10: E11.9 (primary diagnosis) Controlled. - Continue current medications - Blood glucose monitoring on a once a day schedule - Encouraged regular aerobic exercise and weight loss - Follow up in 6 months, sooner should any other issues arise. 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 2. Primary hypertension - ICD9: 401.9, ICD10: I10 - good control - Continue current medication(s) - Encouraged dietary sodium restriction/DASH diet - Recommended regular aerobic exercise. - Reviewed risks of HTN and principles of treatment - Goal of BP <140/90 3. Hyperlipidemia, unspecified hyperlipidemia type - ICD9: 272.4, ICD10: E78.5 - good control - Continue current medication. - Encouraged following a low fat, low cholesterol diet. - Discussed the benefits of regular aerobic exercise and weight loss. 4. Gastroesophageal reflux disease, unspecified whether esophagitis present - ICD9: 530.81, ICD10: K21.9 - Continue treatment with Protonix 40 mg QD 5. Morbid obesity with BMI of 40.0-44.9, adult (HCC) - ICD9: 278.01, V85.41, ICD10: E66.01, Z68.41 Weight increasing - Behavioral intervention 6. DDD (degenerative disc disease), lumbar - ICD9: 722.52, ICD10: M51.36 Improved with TATE. Will obtain records from Dr. Castillo office. 7. Screening for colon cancer - ICD9: V76.51, ICD10: Z12.11 - CONSULT TO GENERAL SURGERY 8. Need for vaccination - ICD9: V05.9, ICD10: Z23 - HEPATITIS B VACCINE, ADULT AGE 20+, IM 9. Labral tear of hip, degenerative - ICD9: 718.05, ICD10: M24.159 Doing well s/p repair. F/u with ortho as scheduled. Antonio Hui MD documented in [facility] encounter[facility]04[facility]22 History of Present illness Narrative* Syeda Tenorio APRN.CNP - 06/27/2021 10:59 AM EDT Patient reports sudden onset neck pain, dizziness, nausea and intractable vomiting that began this morning. No neck stiffness but when she bends her head forward she has sharp pain that radiates fromcervical to thoracic spine. She had epidural injection L5/S1 about one week ago. With recent spinalinjection there is concern about meningitis or other acute spinal process. Recommend evaluation in ER, patient agreeable. She drove herself here. She denies feeling faint or passing out, non-toxic appearing . Offered EMS transport, patient adamantly declined. She will drive herself to [facility]. Syeda Tenorio APRN.CNP documented in this encounterCl[facility]10[facility] History of Past illness Narrative* Problem Noted Date Resolved Date Prediabetes 12/27/2018 documented as of this encounter (statuses as of 06/27/2021) [facility] Narrative* Problem Noted Date Resolved Date Prediabetes 12/27/2018 documented as of this encounter (statuses as of 08/05/2021) [facility] Narrative* Problem Noted Date Resolved Date Prediabetes 12/27/2018 documented as of this encounter (statuses as of 08/11/2021) [facility] Narrative* Problem Noted Date Resolved Date Prediabetes 12/27/2018 documented as of this encounter (statuses as of 08/11/2021) [facility] Narrative* Problem Noted Date Resolved Date Prediabetes 12/27/2018 documented as of this encounter (statuses as of 08/24/2021) [facility] Narrative* Problem Noted Date Resolved Date Prediabetes 12/27/2018 documented as of this encounter (statuses as of 08/26/2021) [facility] Narrative* Problem Noted Date Resolved Date Prediabetes 12/27/2018 documented as of this encounter (statuses as of 09/01/2021) [facility] Narrative* Problem Noted Date Resolved Date Prediabetes 12/27/2018 documented as of this encounter (statuses as of 09/18/2021) [address] History of Past illness Narrative* Problem Noted Date Resolved Date Prediabetes 12/27/2018 documented as of this encounter (statuses as of 09/23/2021) [facility] Narrative* Problem Noted Date Resolved Date Prediabetes 12/27/2018 documented as of this encounter (statuses as of 09/25/2021) [address] History of Past illness Narrative* Problem Noted Date Resolved Date Prediabetes 12/27/2018 documented as of this encounter (statuses as of 10/01/2021) [address] History of Past illness Narrative* Problem Noted Date Resolved Date Prediabetes 12/27/2018 documented as of this encounter (statuses as of 11/20/2021) [facility]* Problem Noted Date Resolved Date Prediabetes 12/27/2018 documented as of this encounter (statuses as of 02/16/2022) [address] History of Past illness Narrative* Problem Noted Date Resolved Date Prediabetes 12/27/2018 documented as of this encounter (statuses as of 03/09/2022) [address] History of Past illness Narrative* Problem Noted Date Resolved Date Prediabetes 12/27/2018 documented as of this encounter (statuses as of 03/10/2022) [address] History of Past illness Narrative* Problem Noted Date Resolved Date Prediabetes 12/27/2018 documented as of this encounter (statuses as of 03/24/2022) [address] History of Past illness Narrative* Problem Noted Date Resolved Date Prediabetes 12/27/2018 documented as of this encounter (statuses as of 03/31/2022) [address] History of Past illness Narrative* Problem Noted Date Resolved Date Prediabetes 12/27/2018 documented as of this encounter (statuses as of 04/14/2022) [facility]* Problem Noted Date Resolved Date Prediabetes 12/27/2018 documented as of this encounter (statuses as of 05/21/2022) [facility]ative* Problem Noted Date Resolved Date Prediabetes 12/27/2018 documented as of this encounter (statuses as of 06/18/2022) [facility] N[facility]ative* Problem Noted Date Resolved Date Prediabetes 12/27/2018 documented as of this encounter (statuses as of 06/22/2022) [facility]ative* Problem Noted Date Resolved Date Prediabetes 12/27/2018 documented as of this encounter (statuses as of 06/29/2022) [address] History of Past illness Narrative* Problem Noted Date Resolved Date Prediabetes 12/27/2018 documented as of this encounter (statuses as of 07/09/2022) [facility] [facility] of Past illness Narrative* Problem Noted Date Resolved Date Prediabetes 12/27/2018 documented as of this encounter (statuses as of 07/12/2022) [facility] History of Past illness Narrative* Problem Noted Date Resolved Date Prediabetes 12/27/2018 documented as of this encounter (statuses as of 08/14/2022) [facility] History of Past illness Narrative* Problem Noted Date Resolved Date Prediabetes 12/27/2018 documented as of this encounter (statuses as of 08/16/2022) [facility] History of Past illness Narrative* Problem Noted Date Resolved Date Prediabetes 12/27/2018 documented as of this encounter (statuses as of 08/17/2022) [facility] History of Past illness Narrative* Problem Noted Date Resolved Date Prediabetes 12/27/2018 documented as of this encounter (statuses as of 08/18/2022) [address]2019 History of Past illness Narrative* Problem Noted Date Resolved Date Prediabetes 12/27/2018 documented as of this encounter (statuses as of 08/20/2022) [facility] History of Past illness Narrative* Problem Noted Date Resolved Date Prediabetes 12/27/2018 documented as of this encounter (statuses as of 08/30/2022) [facility] History of Past illness Narrative* Problem Noted Date Diagnosed Date Resolved Date Prediabetes 12/27/2018 documented as of this encounter (statuses as of 11/05/2022) [facility] History of Past illness Narrative* Problem Noted Date Diagnosed Date Resolved Date Prediabetes 12/27/2018 documented as of this encounter (statuses as of 01/03/2023) [facility] History of Past illness Narrative* Problem Noted Date Diagnosed Date Resolved Date Prediabetes 12/27/2018 documented as of this encounter (statuses as of 04/28/2023) [facility] History of Past illness Narrative* Problem Noted Date Diagnosed Date Resolved Date Prediabetes 12/27/2018 documented as of this encounter (statuses as of 06/10/2023) [facility] Raul Weeksgett [facility] Note Date/Time August 06, 2024 9:12a m [facility] Medical Records Department [address] [place] [address] Emergency Department Summary 08/06/24 MR#: [id number] Acct: [id number] Name: FANTASMA RHOADES Rep #:[id number] : 1970 54 From: Raul adams DO PCP: Dr. Buddy Hui MD Status :REG ER Location: ED HPI History of Present Illness Chief Complaint: Back Narrative Narrative: Chief complaint and HPI: Lumbar back pain. 54-year-old female with past medicalhistory of DM2, HTN, HLD, DDD presents for evaluation of lumbar back pain. Onset yesterday after closing a window. Has not taken any Tylenol or Motrin. States she had a leftover muscle relaxer from months ago that provided little relief. Denies any direct trauma to the back. Denies numbness, weakness, urinary retention, stool or urinary incontinence, saddle anesthesia, recent invasive manipulation of the spine, intravenous drug use, or fever. Review of systems: See HPI Medications: As listed on the chart Allergies: As listed on the chart PFSH: Per chart Vital signs: As listed on the chart. Reviewed. Physical exam: Gen: A&O x3, NAD Head: Normocephalic, atraumatic Eyes: No sclera icterus, conjunctiva clear ENT: Moist mucous membranes Neck: Trachea midline, No JVD CV: RRR, no murmurs, no peripheral edema Resp: Lungs CTA BL, no w/r/c GI: Abd soft, non-distended, non-tender, no r/r/g Musc: Limited range of motion secondary to back pain, no deformity, no midline spinal tenderness, no bony step-off, strength +5/5 of bilateral lower extremities, no signs of trauma or infection, patient is mildly tender to palpation of the right lumbar paraspinal musculature of the lower lumbar spine and in the right piriformis region-recreates her pain Skin: Warm, dry Neuro: Alert, oriented, grossly intact, sensation intact Psych: Cooperative, appropriate mood and affect [facility] Medical History JENNIFFER (stress urinary incontinence, female) Wears glasses Alcohol use Diabetes Bladder disease High cholesterol Back pain Dietary restriction Gastric reflux Former smoker History of echocardiogram History of stress test Endometriosis Hyperlipidemia Hypertension Home Medications ?Medication ?Instructions ?Recorded ?Last Taken ?Type aspirin 81 mg chewable tablet 81 mg PO DAILY@0800 04/10/1112/15/22 History cholecalciferol (vitamin D3) 25 1,000 unit PO DAILY Unknown History mcg (1,000 unit) capsule calcium carbonate 300 mg PO BID 02/20/16 Unkno wn History glucosamine sulfate 250 1 ea PO BID 02/20/16 Unknown History mg-chondroitin sulfate A 200 mg capsule pantoprazole 40 mg tablet,delayed 40 mg PO DAILY 02/1912/23/22 History release cetirizine 10 mg capsule 10 mg PO DAILY PRN Allergies 10/22/18 Unknown History meloxicam 15 mg tablet 15 mg PO DAILY 12/21/2211/28 History epinephrine 0.3 mg/0.3 mL 0.3 mg IM Q4H 03/28/23 Unkno wn History injection, auto-injector hydrochlorothiazide 12.5 mg tablet 12.5 mg PO DAILY Unknown History losartan 50 mg tablet 50 mg PO BID 03/28/23 Unknow n History metformin 500 mg tablet 500 mg PO BID 03/28/23 Unkno wn History simvastatin 10 mg tablet 10 mg PO DAILY 03/28/23 Unkn own History tirzepatide 12.5 mg/0.5 mL 15 mg subcut QWEEK 09/12/23 Unknown History subcutaneous pen injector (Lucasunjaro) venlafaxine 75 mg capsule,extended 75 mg PO QHS #90 ca ps 02/27/24 Unknown Rx release 24 hr cyclobenzaprine 5 mg tablet 5 mg PO TID PRN muscle spa sm 3 08/06/24 Unknown Rx days #9 tabs Allergy/AdvReac Type Severity Reaction Status Date / Time codeine Allergy Anaphylaxis Verified 08/06/24 08:24 Iodinated Contrast Media (iv Allergy Anaphylaxis Verified 08/06/24 08:24 contrast dye) shellfish derived Allergy Nausea/Vom/ Verified 08/06/24 08:24 Diarrhea Sulfa (Sulfonamide Allergy Anaphylaxis Verified 08/06/24 08:24 Antibiotics) pineapple (Pineapple) AdvReac Nausea/Vom/ Verified 08/06/24 08:24 Diarrhea squash AdvReac Nausea/Vom/ Verified 08/06/24 08:24 Diarrhea walnut AdvReac Nausea/Vom/ Verified 08/06/24 08:24 Diarrhea Family History Father Myocardial infarction Hypertension Mother Heart disease Hypertension Grandmother Heart disease Hypertension Surgical History S/P panniculectomy Hx of breast reduction, elective Hx of arthroscopy of right knee Labral tear of left hip joint History of lateral meniscus repair of left knee H/O laparoscopy H/O: hysterectomy Plantar fascia syndrome Social History Smoking Status: Former smoker alcohol intake: current details: social substance use type: does not use caffeine: Yes frequency: 3-4 times per week seatbelt use: always do you feel safe at home: Yes additional social history: seperated EXAM Physical Exam Const Vital Signs: 08/06/24 08:24 Temperature 97.8 F Temperature Source Oral Pulse Rate 95 Respiratory Rate 16 Blood Pressure 144/102 H Blood Pressure Mean 116 Pulse Ox 97 Oxygen Delivery Method Room Air MDM MDM MDM Narrative Medical decision making narrative: 54-year-old female with past medical history of DM2, HTN, HLD, DDD presents for evaluation of lumbar back pain. Onset yesterday after closing a window. Has not taken any Tylenol or Motrin. Did have an old muscle relaxer at home which she took with little relief. States it was not Flexeril. There has been no direct trauma. There is nothing to suggest any infectious etiology. The patient is not an IV drug user. There is no neurologic findings to suggest an acute cauda equina syndrome, infectious etiology, or any acute radiculopathy. At this point I do not feel any emergent imaging such as x-rays, CT, MRI are warranted. Patient symptoms will be treated. She did not drive to the emergency department. IM Toradol and Valium will be given. Patient stable to discharge home. Follow-up with PCP. Return precautions explained. Will give her a shortprescription of Flexeril. Recommended Tylenol. Patient did not take her meloxicam today therefore okay to take Motrin after 8 hours with the Toradol. Was educated that if she takes meloxicam do not take ibuprofen/Motrin. Impression: 1. Lumbar back strain Discharge Plan Triage Chief Complaint: Back ED Provider: Raul Abreu Dx/Rx/DC Orders Clinical Impression: Lumbar strain Instructions: ED Back Sprain/Strain Prescriptions: New cyclobenzaprine 5 mg tablet 5 mg PO TID PRN (Reason: muscle spasm) 3 Days Qty: 9 0RF No Action Mounjaro 12.5 mg/0.5 mL pen injector 15 mg subcut QWEEK aspirin 81 MG tablet,chewable 81 mg PO DAILY@0800 Patient Comments: Heart health cholecalciferol (vitamin D3) 1,000 UNIT capsule 1,000 unit PO DAILY Patient Comments: Supplement calcium carbonate 600 MG tablet 300 mg PO BID Patient Comments: supplement glucosamine sulf-chondroitinSA 1 EACH capsule 1 ea PO BID Patient Comments: supplement pantoprazole 40 MG tablet 40 mg PO DAILY Patient Comments: acid reflux med cetirizine 10 MG capsule 10 mg PO DAILY PRN (Reason: Allergies) meloxicam 15 mg tablet 15 mg PO DAILY epinephrine 0.3 mg/0.3 mL auto-injector 0.3 mg IM Q4H hydrochlorothiazide 12.5 mg tablet 12.5 mg PO DAILY losartan 50 mg tablet 50 mg PO BID metformin 500 mg tablet 500 mg PO BID simvastatin 10 mg tablet 10 mg PO DAILY venlafaxine 75 mg capsule,extended release 24hr 75 mg PO QHS Qty: 90 2RF Primary Care Provider: Buddy Hui Referrals: Buddy Hui MD [Primary Care Provider] - Activity Restrictions/Additional Instructions: Tylenol and Motrin as needed for pain. You received Toradol here in the emergency department, no Motrin for 8 hours. You received most relaxer in the emergency department, no muscle relaxer for 8 hours. Muscle relaxers as needed. Do not drive or operate heavy machinery while taking muscle relaxers. They canmake you tired, confused, lightheaded, and increased falls. Recommended rest and gentle stretching. Follow-up with PCP. Print Language: Portuguese Disposition Disposition: Home, Self Care What to do if you have Problems For any increased pain, shortness of breath, bleeding, nausea or vomiting, chestpain, or any unexpected problems, contact your Primary Care Provider. Call [facility] ([phone]) or report to the closest Emergency Room. Call 911 if necessary. 08/06/24911 <Electronically signed by Raul Abreu DO> Cosigner Signature (if applicable): CC: Dr. Buddy Hui MD ~ Signed [facility] Work Phone: Evaluation noteNo assessment information available [facility] Work Phone: Evaluation note* Diagnosis S/P epidural steroid injection- Primary Other postprocedural status Neck pain Cervicalgia Dizziness Dizziness and giddiness Intractable vomiting Persistent vomiting [facility] Diagnosis Onset Date Resolution Status Climacteric acute Morbid obesity with body mass index of 40.0-49.9 chronic [facility] Work Phone: Evaluation note* Diagnosis Diabetes mellitus type II (HCC)- [...] of hip, degenerative [facility] Diagnosis Need for vaccination- Primary Need for prophylactic vaccination and inoculation against unspecified single disease [facility] Diagnosis Large breasts- Primary Hypertrophy of breast [facility]* Diagnosis Screening for colon cancer Special screening for malignant neoplasms, colon [facility]* Diagnosis Screening for colon cancer Special screening for malignant neoplasms, colon [facility] Diagnosis Screening for colon cancer- Primary Special screening for malignant neoplasms, colon [facility]* Diagnosis Essential hypertension Unspecified essential hypertension Diabetes mellitus type II (HCC) [facility]* Diagnosis Diabetes mellitus type II (HCC) Obesity, Class III, BMI 40-49.9 (morbid obesity) (HCC) Morbid obesity [facility]* Diagnosis Essential hypertension Unspecified essential hypertension Diabetes mellitus type II (HCC) [facility] Diagnosis Diabetes mellitus type II (HCC) Obesity, Class III, BMI 40-49.9 (morbid obesity) (HCC) Morbid obesity [facility]* Diagnosis Diabetes mellitus type II (HCC)- Primary [facility]* Diagnosis Diabetes mellitus type II (HCC)- Primary Macromastia Hypertrophy of breast S/P bilateral breast reduction Other postprocedural status Primary hypertension Unspecified essential hypertension Hyperlipidemia, unspecified hyperlipidemia type Obesity, Class III, BMI 40-49.9 (morbid obesity) (HCC) Morbid obesity Encounter for hepatitis C screening test for low risk patient [facility] Diagnosis Encounter for screening mammogram for breast cancer [facility]* Diagnosis Onset Date Resolution Status Climacteric acute Urinary incontinence, mixed acute Encounter for routine gynecological examination noneactive [facility] Work Phone: Evaluation note* Diagnosis Diabetes mellitus type II (HCC)- Primary Encounter for hepatitis C screening test for low risk patient [facility] Diagnosis Encounter for screening for osteoporosis Special screening for osteoporosis [facility] Diagnosis Sore throat- Primary Acute pharyngitis [facility] Diagnosis Encounter for screening mammogram for breast cancer [facility] Diagnosis Annual physical exam- Primary Routine general medical examination at a health care facility Diabetes mellitus type II (HCC) Primary hypertension Unspecified essential hypertension Hyperlipidemia, unspecified hyperlipidemia type Class 1 obesity with serious comorbidity and body mass index (BMI) of 33.0 to 33.9 in adult, unspecified obesity type Gastroesophageal reflux disease, unspecified whether esophagitis present DDD (degenerative disc disease), cervical Degeneration of cervical intervertebral disc DDD (degenerative disc disease), lumbar Degeneration of lumbar or lumbosacral intervertebral disc [facility] Essential hypertension Unspecified essential hypertension Diabetes mellitus type II (HCC) [facility] Diagnosis Viral upper respiratory illness- Primary Acute upper respiratory infections of unspecified site [facility] Diagnosis Upper back pain- Primary [facility] Diagnosis Urinary frequency- Primary [facility] Diagnosis Acute pain of left shoulder- Primary [facility] Diagnosis Acute pain of left shoulder [facility] Diagnosis UTI symptoms- Primary Other symptoms involving urinary system [facility] Diagnosis Diabetes mellitus type II (HCC)- Primary Hyperlipidemia, unspecified hyperlipidemia type Primary hypertension Unspecified essential hypertension Gastroesophageal reflux disease, unspecified whether esophagitis present [facility] Diagnosis Essential hypertension Unspecified essential hypertension Diabetes mellitus type II (HCC) [facility] Diagnosis Cervical stenosis of spinal canal- Primary Spinal stenosis in cervical region Foraminal stenosis of cervical region Spinal stenosis in cervical region [facility] Diagnosis Cervical disc disorder at C6-C7 level with radiculopathy- Primary DDD (degenerative disc disease), cervical Degeneration of cervical intervertebral disc Diabetes mellitus type II (HCC) S/P bilateral breast reduction Other postprocedural status [facility] Diagnosis Onset Date Resolution Status Admit Date Encounter for routine gynecological examination noneactive August 292024 2:24pm [facility] Work Phone: Hospital Discharge instructions Additional Instructions Stitches need removed in 7 days. You can shower as normal. Do not keep your hand submerged underwater such as bathing or swimming. If any signs of infection develop return to the ER (redness, swelling, pus, increased pain).[facility] Work Phone: Hospital Discharge instructions Additional Instructions [facility] Work [facility] Hospital Discharge instructions Additional Instructions Tylenol and Motrin as needed for pain. Do not take Motrin with the meloxicam. You received Toradol here in the emergency department, no Motrin for 8 hours. You received most relaxer in the emergency department, no muscle relaxer for 8 hours. Muscle relaxers as needed. Do not drive or operate heavy machinery while taking muscle relaxers. They can make you tired, confused, lightheaded, and increased falls. Recommended rest and gentle stretching. Follow-up with PCP. [facility] Work Phone: Reason for referral (narrative)* Outpatient Procedure (Routine) - Closed Specialty Diagnoses / Procedures Referred By Claire maldonado Referred To Contact [facility] Diagnoses Screening for colon cancer Procedures COLONOSCOPY SCREENING COLONOSCOPY FLX DX W/COLLJ SPEC WHEN PFRMD Francie Laws PA-C [address] [place] [address] [facility] [address] [place] [address] Referral ID Status Reason Start Date Expiration Date V isits Requested Visits Authorized [id number] Closed Auto-Generate d Referral 08/25/2021 08/25/2022 1 1 [facility] for referral (narrative)* Outpatient Procedure (Routine) - Closed Specialty Diagnoses / Procedures Referred By Contac t Referred To Contact [facility] Diagnoses Screening for colon cancer Procedures COLONOSCOPY SCREENING COLONOSCOPY FLX DX W/COLLJ SPEC WHEN PFRMD Francie Laws PA-C [address] [place] [address] [facility] [address] [place] [address] Referral ID Status Reason Start Date Expiration Date V isits Requested Visits Authorized [id number] Closed Auto-Generate d Referral 08/25/2021 08/25/2022 1 1 [facility] for referral (narrative)* Diagnostic Procedure Only (Routine) - Pending Review Specialty Diagnoses / Procedures Referred By Claire t Referred To Contact [facility] Diagnoses Encounter for screening mammogram for breast cancer Procedures CHATO SCREENING SCREENING MAMMOGRAPHY BI 2-VIEW BREAST INC Antonio Cazares MD [address] [place] [id number] [facility] [address] [place] [address] Referral ID Status Reason Start Date Expiration Date Visits Requested Visits Authorized [id number] Pending Review Auto-Generat ed Referral 08/11/2022 09/10/2023 1 1 T [facility] for referral (narrative)* Diagnostic Procedure Only (Routine) - Pending Review Specialty Diagnoses / Procedures Referred By Contac t Referred To Contact [facility] Diagnoses Encounter for screening mammogram for breast cancer Procedures CHATO SCREENING W JAYMIE SCREENING DIGITAL BREAST TOMOSYNTHESIS BI SCREENING MAMMOGRAPHY BI 2-VIEW BREAST INC Antonio Cazares MD [address] [place] [address] [facility] [address] [place] [address] Referral ID Status Reason Start Date Expiration Date Visits Requested Visits Authorized [id number] Pending Review Auto-Generat ed Referral 08/17/2023 09/15/2024 1 1 [facility] for referral (narrative)No reason for referral [facility] Work [facility]: Reason for visit Narrative* Outpatient Procedure (Routine) - Closed Specialty Diagnoses / Procedures Referred By Claire t Referred To Contact [facility] Diagnoses Screening for colon cancer Procedures COLONOSCOPY SCREENING COLONOSCOPY FLX DX W/COLLJ SPEC WHEN PFRMD Francie Laws PA-C [address] [place] [address] [facility] [address] [place] [address] Referral ID Status Reason Start Date Expiration Date V isits Requested Visits Authorized [id number] Closed Auto-Generate d Referral 08/25/2021 08/25/2022 1 1 [facility] for visit Narrative* Diagnostic Procedure Only (Routine) - Closed Specialty Diagnoses / Procedures Referred By Claire maldonado Referred To Contact [facility] Diagnoses Acute pain of left shoulder Procedures XR SHOULDER GENERAL 3V OR MORE AP/TRUE AP/OTHER LEFT RADEX SHOULDER COMPLETE MINIMUM 2 VIEWS Antonio Hui MD [address] [place] [address] [place] [id number] Referral ID Status Reason Start Date Expiration Date V isits Requested Visits Authorized [id number] Closed Auto-Generate d Referral 04/02/2024 05/02/2025 1 1 [facility] Chief Complaint and Reason for Visit Chief Complaint ABD PAIN GENERAL ILLNESS Chief Complaint ABD PAIN GENERAL ILLNESS SCREENING 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) Reason for Visit Climacteric Morbid obesity with body mass index of 40.0-49.9 Chief Complaint 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) LACERATION Reason for Visit Climacteric Urinary incontinence, mixed Encounter for routine gynecological examination Chief Complaint LACERATION Midurethral Sling, Cysto with bilateral ureteral c Chief Complaint Midurethral Sling, C ysto with bilateral ureteral c RUQ PAIN Chief Complaint Admit Date back August 06, 2024 8:23a m Chief Complaint Admit Date back August 06, 2024 8:23a m 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) September 18, 2024 2:24 pm Reason for Visit Admit Date Encounter for routine gynecological exam ination September 18, 2024 2:24pm Chief Complaint Admit Date back August 06, 2024 8:23a m 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) September 18, 2024 2:24 pm screening for breast cancer September 18 2:32pm Family History No Family History Records Found Relationship Condition Age at Onset Recorded Date/T zaki father Myocardial infarction Unknown Hypertension Unknown mother Cardiac disease Unknown grandmother Cardiac disease Unknown Advance Directives No Advanced Directives Records Found Advance Directive Response Recorded Date/ Time Advance Directives No January 2:37pm Living Will No June 27, 2021 11:23am Power of Video Recorder Mechanic No June 27 11:23am Documents on File Type Date Recorded 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 Advance Directive(s) 09/22/2021 10:34 AM Documents on File Type Date Recorded 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 Advance Directive(s) 09/22/2021 10:34 AM Advance Directive Response Recorded Date/ Time Advance Directives No January 2:37pm Living Will No September 05, 2022 5 :15pm Power of Video Recorder Mechanic No September 05, 2022 5:15pm Advance Directive Response Recorded Date/ Time Advance Directives No January 2:37pm Living Will No December 21 11:11am Power of Video Recorder Mechanic No December 21, 2022 11:11am Advance Directive Response Recorded Date/ Time Advance Directives No January 1:37pm Living Will No March 28 9:43am Power of Video Recorder Mechanic No March 28, 2023 9:43am Advance Directive Response Recorded Date/ Time Do you have a Healthcare Power of Video Recorder Mechanic? No August 06, 2024 8:54am Advance Directives No January 2:37pm Reason for Referral Specialty Diagnoses / Procedures Referred By Claire t Referred To Contact [facility] Diagnoses Screening for colon cancer Procedures CONSULT TO GENERAL SURGERY OFFICE/OUTPATIENT [facility] 60-74 MINUTES Antonio Hui MD [address] [place] [address] Referral ID Status Reason Start Date Expiration Date Visits Requested Visits Authorized [id number] Authorized PCP Requested Referral 08/04/2021 08/04/2022 1 1 Specialty Diagnoses / Procedures Referred By Contac t Referred To Contact Plastic Surgery Diagnoses Large breasts Procedures CONSULT TO PLASTIC SURGERY OFFICE/OUTPATIENT [facility] MDM 60-74 MINUTES Karla Ocampo APRN.[employer] [address] [place] [address] Referral ID Status Reason Start Date Expiration Date Visits Requested Visits Authorized [id number] Authorized PCP Requested Referral 08/26/2021 08/25/2022 1 1 Specialty Diagnoses / Procedures Referred By Contac t Referred To Contact Karla Ocampo APRN.[employer] [address] [place] [address] Referral ID Status Reason Start Date Expiration Date Visits Re quested Visits Authorized [id number] Closed 1 1 Referral ID Status Reason Start Date Expiration Date Visits Re quested Visits Authorized [id number] Closed 1 1 Specialty Diagnoses / Procedures Referred By Contac t Referred To Contact [facility] Diagnoses Acute pain of left shoulder Procedures CONSULT TO PHYSICAL THERAPY PHYSICAL THERAPY EVALUATION HIGH COMPLEX 45 MINS Antonio Hui MD [address] [place] [address] [facility] [place] [address] [place] [address] Referral ID Status Reason Start Date Expiration Date Visits Requested Visits Authorized [id number] Pending Review Auto-Generat ed Referral 04/02/2024 04/02/2025 1 1 Specialty Diagnoses / Procedures Referred By Contac t Referred To Contact XR IMAGING Diagnoses Acute pain of left shoulder Procedures XR SHOULDER GENERAL 3V OR MORE AP/TRUE AP/OTHER LEFT RADEX SHOULDER COMPLETE MINIMUM 2 VIEWS Antonio Hui MD [address] [place] [address] [place] [id number] Referral ID Status Reason Start Date Expiration Date V isits Requested Visits Authorized [id number] Closed Auto-Generate d Referral 04/02/2024 05/02/2025 1 1 Summary Purpose Medications Administered Section Inactive Administered Medications - [...] 03/17/2022 1:59 AM EST Additional Source Comments Goals (unrecognized section and content) Goals may be documented in a n alternate sectionGoals may be documented in an alternate sectionGoals may be documented in an alternate sectionGoals may be documented in an alternate sectionGoals may be documented in an alternate sectionGoals may be documented in an alternate section Source Comments (unrecognize d section and content) In the event this informatio n is protected by the Federal Confidentiality of Alcohol and Drug Abuse Patient Records regulations: The Federal rules restrict any use of the information to criminally investigate or prosecute any alcohol or drug abuse patient.[facility] the event this information is protected by the Federal Confidentiality of Alcohol and Drug Abuse Patient Records regulations: The Federal rules restrict any use of the information to criminally investigate or prosecute any alcohol or drug abuse patient.[facility] HospitalIn the event this information is protected by the Federal Confidentiality of Alcohol and Drug Abuse Patient Records regulations: The Federal rules restrict any use of the information to criminally investigate or prosecute any alcohol or drug abuse patient.[facility] HospitalIn the event this information is protected by the Federal Confidentiality of Alcohol and Drug Abuse Patient Records regulations: The Federal rules restrict any use of the information to criminally investigate or prosecute any alcohol or drug abuse patient.[facility] HospitalIn the event this information is protected by the Federal Confidentiality of Alcohol and Drug Abuse Patient Records regulations: The Federal rules restrict any use of the information to criminally investigate or prosecute any alcohol or drug abuse patient.[facility] HospitalIn the event this information is protected by the Federal Confidentiality of Alcohol and Drug Abuse Patient Records regulations: The Federal rules restrict any use of the information to criminally investigate or prosecute any alcohol or drug abuse patient.[facility] HospitalIn the event this information is protected by the Federal Confidentiality of Alcohol and Drug Abuse Patient Records regulations: The Federal rules restrict any use of the information to criminally investigate or prosecute any alcohol or drug abuse patient.[facility] HospitalIn the event this information is protected by the Federal Confidentiality of Alcohol and Drug Abuse Patient Records regulations: The Federal rules restrict any use of the information to criminally investigate or prosecute any alcohol or drug abuse patient.[facility] HospitalIn the event this information is protected by the Federal Confidentiality of Alcohol and Drug Abuse Patient Records regulations: The Federal rules restrict any use of the information to criminally investigate or prosecute any alcohol or drug abuse patient.[facility] HospitalIn the event this information is protected by the Federal Confidentiality of Alcohol and Drug Abuse Patient Records regulations: The Federal rules restrict any use of the information to criminally investigate or prosecute any alcohol or drug abuse patient.[facility] HospitalIn the event this information is protected by the Federal Confidentiality of Alcohol and Drug Abuse Patient Records regulations: The Federal rules restrict any use of the information to criminally investigate or prosecute any alcohol or drug abuse patient.[facility] HospitalIn the event this information is protected by the Federal Confidentiality of Alcohol and Drug Abuse Patient Records regulations: The Federal rules restrict any use of the information to criminally investigate or prosecute any alcohol or drug abuse patient.[facility] HospitalIn the event this information is protected by the Federal Confidentiality of Alcohol and Drug Abuse Patient Records regulations: The Federal rules restrict any use of the information to criminally investigate or prosecute any alcohol or drug abuse patient.[facility] HospitalIn the event this information is protected by the Federal Confidentiality of Alcohol and Drug Abuse Patient Records regulations: The Federal rules restrict any use of the information to criminally investigate or prosecute any alcohol or drug abuse patient.[facility] HospitalIn the event this information is protected by the Federal Confidentiality of Alcohol and Drug Abuse Patient Records regulations: The Federal rules restrict any use of the information to criminally investigate or prosecute any alcohol or drug abuse patient.[facility] HospitalIn the event this information is protected by the Federal Confidentiality of Alcohol and Drug Abuse Patient Records regulations: The Federal rules restrict any use of the information to criminally investigate or prosecute any alcohol or drug abuse patient.[facility] HospitalIn the event this information is protected by the Federal Confidentiality of Alcohol and Drug Abuse Patient Records regulations: The Federal rules restrict any use of the information to criminally investigate or prosecute any alcohol or drug abuse patient.[facility] HospitalIn the event this information is protected by the Federal Confidentiality of Alcohol and Drug Abuse Patient Records regulations: The Federal rules restrict any use of the information to criminally investigate or prosecute any alcohol or drug abuse patient.[facility] HospitalIn the event this information is protected by the Federal Confidentiality of Alcohol and Drug Abuse Patient Records regulations: The Federal rules restrict any use of the information to criminally investigate or prosecute any alcohol or drug abuse patient.[facility] HospitalIn the event this information is protected by the Federal Confidentiality of Alcohol and Drug Abuse Patient Records regulations: The Federal rules restrict any use of the information to criminally investigate or prosecute any alcohol or drug abuse patient.[facility] HospitalIn the event this information is protected by the Federal Confidentiality of Alcohol and Drug Abuse Patient Records regulations: The Federal rules restrict any use of the information to criminally investigate or prosecute any alcohol or drug abuse patient.[facility] HospitalIn the event this information is protected by the Federal Confidentiality of Alcohol and Drug Abuse Patient Records regulations: The Federal rules restrict any use of the information to criminally investigate or prosecute any alcohol or drug abuse patient.[facility] HospitalIn the event this information is protected by the Federal Confidentiality of Alcohol and Drug Abuse Patient Records regulations: The Federal rules restrict any use of the information to criminally investigate or prosecute any alcohol or drug abuse patient.[facility] HospitalIn the event this information is protected by the Federal Confidentiality of Alcohol and Drug Abuse Patient Records regulations: The Federal rules restrict any use of the information to criminally investigate or prosecute any alcohol or drug abuse patient.[facility] HospitalIn the event this information is protected by the Federal Confidentiality of Alcohol and Drug Abuse Patient Records regulations: The Federal rules restrict any use of the information to criminally investigate or prosecute any alcohol or drug abuse patient.[facility] HospitalIn the event this information is protected by the Federal Confidentiality of Alcohol and Drug Abuse Patient Records regulations: The Federal rules restrict any use of the information to criminally investigate or prosecute any alcohol or drug abuse patient.[facility] HospitalIn the event this information is protected by the Federal Confidentiality of Alcohol and Drug Abuse Patient Records regulations: The Federal rules restrict any use of the information to criminally investigate or prosecute any alcohol or drug abuse patient.[facility] HospitalIn the event this information is protected by the Federal Confidentiality of Alcohol and Drug Abuse Patient Records regulations: The Federal rules restrict any use of the information to criminally investigate or prosecute any alcohol or drug abuse patient.[facility] HospitalIn the event this information is protected by the Federal Confidentiality of Alcohol and Drug Abuse Patient Records regulations: The Federal rules restrict any use of the information to criminally investigate or prosecute any alcohol or drug abuse patient.[facility] HospitalIn the event this information is protected by the Federal Confidentiality of Alcohol and Drug Abuse Patient Records regulations: The Federal rules restrict any use of the information to criminally investigate or prosecute any alcohol or drug abuse patient.[facility] HospitalIn the event this information is protected by the Federal Confidentiality of Alcohol and Drug Abuse Patient Records regulations: The Federal rules restrict any use of the information to criminally investigate or prosecute any alcohol or drug abuse patient.[facility] HospitalIn the event this information is protected by the Federal Confidentiality of Alcohol and Drug Abuse Patient Records regulations: The Federal rules restrict any use of the information to criminally investigate or prosecute any alcohol or drug abuse patient.[facility] HospitalIn the event this information is protected by the Federal Confidentiality of Alcohol and Drug Abuse Patient Records regulations: The Federal rules restrict any use of the information to criminally investigate or prosecute any alcohol or drug abuse patient.[facility] HospitalIn the event this information is protected by the Federal Confidentiality of Alcohol and Drug Abuse Patient Records regulations: The Federal rules restrict any use of the information to criminally investigate or prosecute any alcohol or drug abuse patient.[facility] HospitalIn the event this information is protected by the Federal Confidentiality of Alcohol and Drug Abuse Patient Records regulations: The Federal rules restrict any use of the information to criminally investigate or prosecute any alcohol or drug abuse patient.[facility] HospitalIn the event this information is protected by the Federal Confidentiality of Alcohol and Drug Abuse Patient Records regulations: The Federal rules restrict any use of the information to criminally investigate or prosecute any alcohol or drug abuse patient.[facility] HospitalIn the event this information is protected by the Federal Confidentiality of Alcohol and Drug Abuse Patient Records regulations: The Federal rules restrict any use of the information to criminally investigate or prosecute any alcohol or drug abuse patient.[facility] HospitalIn the event this information is protected by the Federal Confidentiality of Alcohol and Drug Abuse Patient Records regulations: The Federal rules restrict any use of the information to criminally investigate or prosecute any alcohol or drug abuse patient.[facility] the event this information is protected by the Federal Confidentiality of Alcohol and Drug Abuse Patient Records regulations: The Federal rules restrict any use of the information to criminally investigate or prosecute any alcohol or drug abuse patient.[facility] HospitalIn the event this information is protected by the Federal Confidentiality of Alcohol and Drug Abuse Patient Records regulations: The Federal rules restrict any use of the information to criminally investigate or prosecute any alcohol or drug abuse patient.[facility] HospitalIn the event this information is protected by the Federal Confidentiality of Alcohol and Drug Abuse Patient Records regulations: The Federal rules restrict any use of the information to criminally investigate or prosecute any alcohol or drug abuse patient.[facility]In the event this information is protected by the Federal Confidentiality of Alcohol and Drug Abuse Patient Records regulations: The Federal rules restrict any use of the information to criminally investigate or prosecute any alcohol or drug abuse patient.[facility] HospitalIn the event this information is protected by the Federal Confidentiality of Alcohol and Drug Abuse Patient Records regulations: The Federal rules restrict any use of the information to criminally investigate or prosecute any alcohol or drug abuse patient.[facility] HospitalIn the event this information is protected by the Federal Confidentiality of Alcohol and Drug Abuse Patient Records regulations: The Federal rules restrict any use of the information to criminally investigate or prosecute any alcohol or drug abuse patient.[facility] HospitalIn the event this information is protected by the Federal Confidentiality of Alcohol and Drug Abuse Patient Records regulations: The Federal rules restrict any use of the information to criminally investigate or prosecute any alcohol or drug abuse patient.[facility] HospitalIn the event this information is protected by the Federal Confidentiality of Alcohol and Drug Abuse Patient Records regulations: The Federal rules restrict any use of the information to criminally investigate or prosecute any alcohol or drug abuse patient.[facility] HospitalIn the event this information is protected by the Federal Confidentiality of Alcohol and Drug Abuse Patient Records regulations: The Federal rules restrict any use of the information to criminally investigate or prosecute any alcohol or drug abuse patient.[facility] HospitalIn the event this information is protected by the Federal Confidentiality of Alcohol and Drug Abuse Patient Records regulations: The Federal rules restrict any use of the information to criminally investigate or prosecute any alcohol or drug abuse patient.[facility] HospitalIn the event this information is protected by the Federal Confidentiality of Alcohol and Drug Abuse Patient Records regulations: The Federal rules restrict any use of the information to criminally investigate or prosecute any alcohol or drug abuse patient.[facility] HospitalIn the event this information is protected by the Federal Confidentiality of Alcohol and Drug Abuse Patient Records regulations: The Federal rules restrict any use of the information to criminally investigate or prosecute any alcohol or drug abuse patient.[facility] HospitalIn the event this information is protected by the Federal Confidentiality of Alcohol and Drug Abuse Patient Records regulations: The Federal rules restrict any use of the information to criminally investigate or prosecute any alcohol or drug abuse patient.[facility] HospitalIn the event this information is protected by the Federal Confidentiality of Alcohol and Drug Abuse Patient Records regulations: The Federal rules restrict any use of the information to criminally investigate or prosecute any alcohol or drug abuse patient.[facility] HospitalIn the event this information is protected by the Federal Confidentiality of Alcohol and Drug Abuse Patient Records regulations: The Federal rules restrict any use of the information to criminally investigate or prosecute any alcohol or drug abuse patient.[facility] HospitalIn the event this information is protected by the Federal Confidentiality of Alcohol and Drug Abuse Patient Records regulations: The Federal rules restrict any use of the information to criminally investigate or prosecute any alcohol or drug abuse patient.[facility] HospitalIn the event this information is protected by the Federal Confidentiality of Alcohol and Drug Abuse Patient Records regulations: The Federal rules restrict any use of the information to criminally investigate or prosecute any alcohol or drug abuse patient.[facility] HospitalIn the event this information is protected by the Federal Confidentiality of Alcohol and Drug Abuse Patient Records regulations: The Federal rules restrict any use of the information to criminally investigate or prosecute any alcohol or drug abuse patient.[facility] HospitalIn the event this information is protected by the Federal Confidentiality of Alcohol and Drug Abuse Patient Records regulations: The Federal rules restrict any use of the information to criminally investigate or prosecute any alcohol or drug abuse patient.[facility] HospitalIn the event this information is protected by the Federal Confidentiality of Alcohol and Drug Abuse Patient Records regulations: The Federal rules restrict any use of the information to criminally investigate or prosecute any alcohol or drug abuse patient.[facility] HospitalIn the event this information is protected by the Federal Confidentiality of Alcohol and Drug Abuse Patient Records regulations: The Federal rules restrict any use of the information to criminally investigate or prosecute any alcohol or drug abuse patient.[facility] Reason for Visit (unrecogniz ed section and content) Reason Comments Pain neck pain, dizziness , nausea with vomiting that began this morning, had a back injection last Tuesday in L5/ S1 bilateral Reason Comments Follow Up 6 month Reason Comments Appointment Patient Update Reason Comments Orders Reason Comments Consult colonoscopy Specialty Diagnoses / Procedures Referred By Claire maldonado Referred To Contact General Surgery Diagnoses Screening for colon cancer Procedures CONSULT TO GENERAL SURGERY OFFICE/OUTPATIENT [facility] 60-74 MINUTES Antonio Hui MD [address] [place] [address] Referral ID Status Reason Start Date Expiration Date V isits Requested Visits Authorized [id number] Closed PCP Requested Referral 08/04/2021 08/04/2022 1 [...] Reason Onset Date Comments Refill Request 08/30/2022 Reason Comments Sore Throat Headache, stomach ac he x this am Reason Comments Physical Reason Onset Date Comments Refill Request 01/16/2024 Reason [address]ore Throat ST, left ear pain an d PEDRO x 1 day Reason Comments Hypertension Reason Comments Back Pain center x 3 hours Reason Comments Urinary Problem Frequency, burning w ith urination x 1 day Reason Comments Medication Request Reason Comments Pain (Shoulder Pain) X 1 month Reason Comments UTI Reason Comments F/U 6 months Reason Onset Date Comments Refill Request 05/08/2024 Reason Onset Date Comments Refill Request 07/09/2024 Reason Onset Date Comments Refill Request 08/02/2024 Reason Onset Date Comments Refill Request 08/21/2024 Reason Comments New Patient Care Teams (unrecognized sec tion and content) Traveling Construction Superintendent Relationship Specialty Start Date End Date Antonio Hui MD [address] [place], [place] [id number] PCP - [facility] 04/29/16 Traveling Construction Superintendent Relationship Specialty Start Date End Date Antonio Hui MD [address] [place] [address] PCP - General Family Practice 04/29/16 Traveling Construction Superintendent Relationship Specialty Start Date End Date Antonio Hui MD [address] [place] [address] PCP - [facility] 04/29/16 Traveling Construction Superintendent Relationship Specialty Start Date End Date Antonio Hui MD [address] [place] [address] PCP - General Family Practice 04/29/16 Traveling Construction Superintendent Relationship Specialty Start Date End Date Antonio Hui MD [address] [place] [address] PCP - General Family Practice 04/29/16 Traveling Construction Superintendent Relationship Specialty Start Date End Date Antonio Hui MD [address] [place] [address] PCP - General Family Practice 04/29/16 Traveling Construction Superintendent Relationship Specialty Start Date End Date Antonio Hui MD [address] [place] [address] PCP - General Family Practice 04/29/16 Traveling Construction Superintendent Relationship Specialty Start Date End Date Antonio Hui MD [address] [place] [address] PCP - General Family Practice 04/29/16 Traveling Construction Superintendent Relationship Specialty Start Date End Date Antonio Hui MD [address] [place] [address] PCP - General Family Practice 04/29/16 Traveling Construction Superintendent Relationship Specialty Start Date End Date Antonio Hui MD [address] [place] [address] PCP - General Family Medicine 04/29/16 Traveling Construction Superintendent Relationship Specialty Start Date End Date Antonio Hui MD [address] [place] [address] PCP - General Family Medicine 04/29/16 Traveling Construction Superintendent Relationship Specialty Start Date End Date Antonio Hui MD [address] [place] [address] PCP - General Family Medicine 04/29/16 Traveling Construction Superintendent Relationship Specialty Start Date End Date Antonio Hui MD [address] [place] [address] PCP - General Family Medicine 04/29/16 Traveling Construction Superintendent Relationship Specialty Start Date End Date Antonio Hui MD [address] [place] [address] PCP - General Family Medicine 04/29/16 Traveling Construction Superintendent Relationship Specialty Start Date End Date Antonio Hui MD [address] [place] [address] PCP - General Family Medicine 04/29/16 Traveling Construction Superintendent Relationship Specialty Start Date End Date Antonio Hui MD [address] [place] [address] PCP - General Family Medicine 04/29/16 Traveling Construction Superintendent Relationship Specialty Start Date End Date Antonio Hui MD [address] [place] [address] PCP - General Family Medicine 04/29/16 Traveling Construction Superintendent Relationship Specialty Start Date End Date Antonio Hui MD [address] [place] [address] PCP - General Family Medicine 04/29/16 Traveling Construction Superintendent Relationship Specialty Start Date End Date Antonio Hui MD [address] [place] [address] PCP - General Family Medicine 04/29/16 Traveling Construction Superintendent Relationship Specialty Start Date End Date Antonio Hui MD [address] [place] [address] PCP - General Family Medicine 04/29/16 Traveling Construction Superintendent Relationship Specialty Start Date End Date Antonio Hui MD [address] [place] [address] PCP - General Family Medicine 04/29/16 Team Status: Active Member Role Status Dates Dr. Buddy Hui MD Family Provider Active Dr. Buddy Hui MD Primary Care Provider Acti ve Team Status: Inactive Member Role Status Dates Dr. Buddy Hui MD Primary Care Provider, Ref erring Provider Active Bessy Alfonso BELLMAN DRIVER, BELLMAN DRIVER-C Attending Provider Active Team Status: Inactive Member Role Status Dates Dr. Buddy Hui MD Primary Care Provider Acti ve Dr. Richie Lai DO Emergency Provider Active Traveling Construction Superintendent Relationship Specialty Start Date End Date Antonio Hui MD [address] [place] [address] PCP - General Family Medicine 04/29/16 Team Status: Inactive Member Role Status Dates Dr. Buddy Hui MD Primary Care Provider Acti ve Dr. Richie Lai DO Attending Provider, Emergency Provide r Active Team Status: Inactive Member Role Status Dates Dr. Buddy Hui MD Primary Care Provider Acti ve Dr. Leisa Christiansen MD Attending Provider, Referring P [facility] Active Traveling Construction Superintendent Relationship Specialty Start Date End Date Antonio Hui MD [address] [facility], [place] [address] PCP - General Family Medicine 04/29/16 Traveling Construction Superintendent Relationship Specialty Start Date End Date Antonio Hui MD [address] [place] [address] PCP - General Family Medicine 04/29/16 Traveling Construction Superintendent Relationship Specialty Start Date End Date Antonio Hui MD [address] [place] [address] PCP - General Family Medicine 04/29/16 Traveling Construction Superintendent Relationship Specialty Start Date End Date Antonio Hui MD [address] [place] [address] PCP - General Family Medicine 04/29/16 Traveling Construction Superintendent Relationship Specialty Start Date End Date Antonio Hui MD [address] [place] [address] PCP - General Family Medicine 04/29/16 Traveling Construction Superintendent Relationship Specialty Start Date End Date Antonio Hui MD [address] [place] [address] PCP - General Family Medicine 04/29/16 Traveling Construction Superintendent Relationship Specialty Start Date End Date Antonio Hui MD [address] [place] [address] PCP - General Family Medicine 04/29/16 Traveling Construction Superintendent Relationship Specialty Start Date End Date Antonio Hui MD [address] [place] [address] PCP - General Family Medicine 04/29/16 Traveling Construction Superintendent Relationship Specialty Start Date End Date Antonio Hui MD [address] [place] [address] PCP - General Family Medicine 04/29/16 Traveling Construction Superintendent Relationship Specialty Start Date End Date Antonio Hui MD [address] [place] [address] PCP - General Family Medicine 04/29/16 Karla Ocampo APRN.CNP [address] [place] [address] Child Care Worker Family Medicine 02/04/24 Traveling Construction Superintendent Relationship Specialty Start Date End Date Antonio Hui MD [address] [place] [address] PCP - General Family Medicine 04/29/16 Podlogar, Karla, NOZZLEMAN.TEAM AUTOMOBILE ASSEMBLER [address] [place] [address] Child Care Worker Family Medicine 02/04/24 Traveling Construction Superintendent Relationship Specialty Start Date End Date Antonio Hui MD [address] [place] [address] PCP - General Family Medicine 04/29/16 Podlogar, Karla NOZZLEMAN.TEAM AUTOMOBILE ASSEMBLER [address] [place] [address] [facility] 02/04/24 Traveling Construction Superintendent Relationship Specialty Start Date End Date Antonio Hui MD [address] [place] [address] PCP - General Family Medicine 04/29/16 Podlogar, Karla, NOZZLEMAN.TEAM AUTOMOBILE ASSEMBLER [address] [place] [address] [facility] 02/04/24 Traveling Construction Superintendent Relationship Specialty Start Date End Date Antonio Hui MD [address] [place] [address] PCP - General Family Medicine 04/29/16 Podlogar, Karla, NOZZLEMAN.TEAM AUTOMOBILE ASSEMBLER [address] [place] [address] [facility] Traveling Construction Superintendent Relationship Specialty Start Date End Date Antonio Hui MD [address] [place] [address] PCP - General Family Medicine 04/29/16 Podlogar, Karla, NOZZLEMAN.TEAM AUTOMOBILE ASSEMBLER [address] [place] [address] Child Care Worker Family Medicine 02/04/24 Traveling Construction Superintendent Relationship Specialty Start Date End Date Antonio Hui MD [address] [place] [address] PCP - General Family Medicine 04/29/16 Podlogar, Karla, NOZZLEMAN.TEAM AUTOMOBILE ASSEMBLER [address] [place] [address] [facility] 02/04/24 Traveling Construction Superintendent Relationship Specialty Start Date End Date Antonio Hui MD [address] [place] [address] PCP - General Family Medicine 04/29/16 Podlogar, Karla, NOZZLEMAN.TEAM AUTOMOBILE ASSEMBLER [address] [place] [address] [facility]/04/[facility] Traveling Construction Superintendent Relationship Specialty Start Date End Date Antonio Hui MD [address] [place] [address] PCP - General Family Medicine 04/29/16 Podlogar, Karla, NOZZLEMAN.TEAM AUTOMOBILE ASSEMBLER [address] [place] [address] [facility] 02/04/24 Traveling Construction Superintendent Relationship Specialty Start Date End Date Antnoio Hui MD [address] [place] [address] PCP - General Family Medicine 04/29/16 PodlogarKarla NOZZLEMAN.TEAM AUTOMOBILE ASSEMBLER [address] [place], [place] [address] [facility] 02/04/[facility] Traveling Construction Superintendent Relationship Specialty Start Date End Date Antonio Hui MD [address] [place], [place] [address] PCP - General Family Medicine 04/29/16 PodlogarKarla NOZZLEMAN.TEAM AUTOMOBILE ASSEMBLER [address] [place] [address] [facility] 02/04/24 Eufemia Norris NOZZLEMAN.TEAM AUTOMOBILE ASSEMBLER [address] [place] [address] [facility] 05/11/24 05/20/24 Eufemia Norris, NOZZLEMAN.TEAM AUTOMOBILE ASSEMBLER [address] [place] [address] [facility] 05/21/24 Traveling Construction Superintendent Relationship Specialty Start Date End Date Antonio Hui MD [address] [place] [address] PCP - General Family Medicine 04/29/16 PodlogarKarla NOZZLEMAN.TEAM AUTOMOBILE ASSEMBLER [address] [place] [address] [facility] Medicine 02/04/24 Eufemia Norris APRN.TEAM AUTOMOBILE ASSEMBLER [address] [place] [address] [facility] 05/21/24 Team Status: Active Member Role Status Dates Dr. Buddy Hui MD Primary Care Provider Acti ve Team Status: Inactive Member Role Status Dates Dr. Buddy Hui MD Primary Care Provider Acti ve Start: August 06, 2024 End: August 06, 2024 Dr. Raul Abreu DO Emergency Provider Activ e Start: August 06, 2024 End: August 06, 2024 Traveling Construction Superintendent Relationship Specialty Start Date End Date Antonio Hui MD [address] [place] [address] PCP - General Family Medicine 04/29/16 PodlogarKarla NOZZLEMAN.TEAM AUTOMOBILE ASSEMBLER [address] [place] [address] Child Care Worker Family Medicine 02/04/24 Eufemia Norris NOZZLEMAN.TEAM AUTOMOBILE ASSEMBLER [address] [place] [address] [facility] 08/09/24 Traveling Construction Superintendent Relationship Specialty Start Date End Date Antonio Hui MD [address] [place] [address] PCP - General Family Medicine 04/29/16 PodlogarKarla, NOZZLEMAN.TEAM AUTOMOBILE ASSEMBLER [address] [place] [address] Child Care Worker Family Medicine 02/04/24 Eufemia Norris NOZZLEMAN.TEAM AUTOMOBILE ASSEMBLER [address] [place] [address] [facility] Medicine 08/09/24 Traveling Construction Superintendent Relationship Specialty Start Date End Date Antonio Hui MD [address] [place], [place] [address] PCP - General Family Medicine 04/29/16 Karla Ocampo APRN.TEAM AUTOMOBILE ASSEMBLER [address] [place], [place] [address] [facility] 02/04/24 Eufemia Norris, NOZZLEMAN.TEAM AUTOMOBILE ASSEMBLER [address] [place], [place] [address] [facility] 08/09/24 Team Status: Active Member Role/Relationship Status Dates Dr. Buddy Hui MD Primary Care Provider Acti ve Team Status: Inactive Member Role/Relationship Status Dates Dr. Buddy Hui MD Primary Care Provider Acti ve Start: August 06, 2024 End: August 06, 2024 Dr. Raul Abreu , Attending Provider Activ e Start: August 06, 2024 End: August 06, 2024 Dr. Raul Abreu DO Emergency Provider Activ e Start: August 06, 2024 End: August 06, 2024 Team Status: Inactive Member Role/Relationship Status Dates Dr. Buddy Hui MD Primary Care Provider Acti ve Start: August 28, 2024 Dr. Leisa Christiansen MD Attending Provider Active Start: August 28, 2024 Team Status: Inactive Member Role/Relationship Status Dates Dr. Buddy Hui MD Primary Care Provider Acti ve Start: September 18, 2024 End: September 18, 2024 Dr. Buddy Hui MD Referring Provider Active Start: September 18, 2024 End: September 18, 2024 Bessy Alfonso BELLMAN DRIVER, BELLMAN DRIVER-C Attending Provider Active Start: September 18, 2024 End: September 18, 2024 Team Status: Inactive Member Role/Relationship Status Dates Dr. Buddy Hui MD Primary Care Provider Acti ve Start: September 18, 2024 End: September 18, 2024 Bessy Alfonso BELLMAN DRIVER, BELLMAN DRIVER-C Attending Provider Active Start: September 18, 2024 End: September 18, 2024 Bessy Alfonso BELLMAN DRIVER, BELLMAN DRIVER-C Referring Provider Active Start: September 18, 2024 End: September 18, 2024 INFORMATION SOURCE (unrecogn ized section and content) DATE CREATED AUTHOR 09/19/2021 [facility] dical Specialist DATE CREATED AUTHOR AUTHOR'S ORGANIZ ATION 09/01/2024 [facility] DATE CREATED AUTHOR AUTHOR'S ORGANIZ ATION 09/25/2024 [facility] DATE CREATED AUTHOR AUTHOR'S ORGANIZ ATION 10/12/2024 [facility] FOR RECORDS PERTAINING TO PATIENTS WHO ARE [...] BE BASED ON THE PRIMARY CLINICAL RECORDS. [facility] [employer] provides no warranty or guarantee of the accuracy or completeness of information in this document.
--- NOTE | 2024-10-28 10:31 | CT_ITS ---
PROCEDURE: ABDOMEN/PELVIS WITHOUT CONT 10/28/2024 REASON FOR EXAM: PAIN TECHNIQUE: Procedure Code: CTABDPEL Modality: CT Procedure: ABDOMEN/PELVIS WITHOUT CONT Noncontrast technique limits evaluation of the abdominal and pelvic viscera. Coronal and Sagittal reconstruction series were provided. One or more dose reduction techniques were used (e.g., Automated exposure control, adjustment of the mA and/or kV according to patient size, use of iterative reconstruction technique). RADIATION DOSE SUMMARY: CTDlvol: 18.18 mGy DLP: 1049.15 mGycm COMPARISON: None FINDINGS: Lung bases: Clear. Postsurgical changes at bilateral IMF. Liver: Unremarkable Gallbladder: Within normal limits Spleen: Normal Pancreas: Unremarkable Adrenals: Grossly normal Kidneys: No hydronephrosis. A nonobstructing 0.2 cm calculus at the left kidney inferior pole series 2, image 74. No hydroureter. Bladder: Normal Reproductive Organs: Hysterectomy changes Bowel: Stomach and small bowel are within normal limits. Subtle mild wall thickening in distal portion of transverse colon series 2, image 68 and surrounding fat stranding.. Sigmoid diverticulosis without CT evidence of diverticulitis. There is no bowel obstruction. Appendix: Radiopaque material within appendix series 2, image 128 through 141. Appendix measures approximately 0.7 cm in transverse dimension. No appendiceal wall thickening or surrounding mesenteric fat stranding.. Lymph nodes: No lymphadenopathy. Vasculature: Calcified atherosclerotic changes in the distal abdominal aorta. Peritoneum / Retroperitoneum: No ascites. Bones: No destructive osseous lesion. Postsurgical changes in the anterior lower abdominal wall. CT/Abdomen/Pelvis without Cont IMPRESSION: 1. Probable appendicolith, as described above. There are no CT findings of acu te appendicitis. 2. Subtle inflammatory changes in the distal transverse colon, suggestive of mi ld colitis. 3. Postsurgical changes at bilateral inframammary folds, anterior abdominal wal l. Reading Location: [id number]
[2024-10-28 10:51] LABS: Differential Indicated SCAN CRITERIA MET
[2024-10-28 10:53] LABS: AST(SGOT) 18 U/L (<=31); Alanine Aminotransfer ALT/SGPT 13 U/L (<=34); Albumin, Serum 4.5 g/dL (3.5-5.0); Alkaline Phosphatase 142 U/L (35-104); Anion Gap 16 (5-15); BUN 20 mg/dL (4-19); BUN/Creat Ratio 32.5 RATIO (10-20); Calcium,Total 9.6 mg/dL (7.6-11.0); Carbon Dioxide 22.5 mmol/L (21.0-32.0); Chloride 103 mmol/L (98-108); Estimated Creatinine Clearance 121.82 ml/min (50-250); Globulin 2.8 g/dL (2.2-4.2); Glucose 128 mg/dL (70-99); Lipase 45 U/L (13-75); Potassium 3.8 mmol/L (3.3-5.1)
[2024-10-28 11:15] LABS: Mucous, Urine 0 SEEN /hpf (<or=2+); Red Blood Cells-Urine 0 SEEN /hpf (0-5)
[2024-10-28 11:16] LABS: Color, Urine Yellow (Yellow); Glucose, Dipstick Normal (Normal); Ketone-Dipstick 5 mg/dl (Negative); Leukocyte Esterase-Dipstick 500 /ul (Negative); Nitrite-Dipstick Negative (Negative); Occult Blood-Urine 10 /ul (Negative); Protein-Dipstick 15 mg/dl (Negative); Specific Gravity, Urine 1.020 (1.002-1.030); Urine Bilirubin Dipstick 1 mg/dL (Negative)
[2024-10-28 11:28] LABS: Squamous Epithelial Cells - UA 0-5 SEEN /hpf (5-10)
--- NOTE | 2024-10-28 14:02 | EKG12_ITS ---
Test Reason : ABD PAIN Blood Pressure : */* mmHG Vent. Rate : 83 BPM Atrial Rate : 83 BPM P-R Int : 120 ms QRS Dur : 86 ms QT Int : 374 ms P-R-T Axes : 19 12 37 degrees QTcB Int : 439 ms Normal sinus rhythm Normal ECG Confirmed by Joe Mera ([id number]), assistant editor JOSELINE HILL ([id number]) on 10/30/2024 10:35:49 AM Referred By: Confirmed By: Joe Mera
[2024-10-28 14:20] LABS: Reflex Lactate? Y
[2024-10-28] MEDS: Piperacil/Tazobactam 4.5 GM in 0.9% Normal Saline (100mL MB+) 100 ML IV (14:48)
--- NOTE | 2024-10-28 14:49 | PCM.HP.STD ---
HPI - General General Date of Admission: 10/28/24 Date of Service: 10/28/24 Chief Complaint: Abdominal pain sudden onset at 3 AM today HPI Narrative FANTASMA KENT, is a 54 F came to ED with sudden onset of abdominal pain around umbilical region about 3 AM that woke her up. Her abdominal pain which to the maximum excruciating 10/10 intensity after 1 hour and then about 6 AM she started vomiting with nausea. She states she is vomiting every half an to 1 hour mainly gastric content. She also had 2 time explosive diarrhea first 1 was large. She did not see any blood or mucus. She felt like chills in the morning today. She states she felt fine with no signs and symptoms of sickness yesterday. She came to ED and had IV fluid resuscitation and morphine and Zofran that eased her pain and vomiting. She denies any previous episodes of abdominal pain, chronic GI diagnoses or history of GI bleed/diverticulitis or C. difficile or recent antibiotic intake in last 6 months. In ED, she has leukocytosis and lactic acid elevated and had 2 L of IV fluid resuscitation but second lactic acid went up than the first 1. She has IV bolus normal saline third liter going on. CT abdomen without contrast initially reviewed, discussed with the surgeon and discussed in assessment and plan. General surgery consulted. [facility] Medical History JENNIFFER (stress urinary incontinence, female) Wears glasses Alcohol use Diabetes Bladder disease High cholesterol Back pain Dietary restriction Gastric reflux Former smoker History of echocardiogram History of stress test Endometriosis Hyperlipidemia Hypertension Home Medications ?Medication ?Instructions ?Recorded ?Last Taken ?Type aspirin 81 mg chewable tablet 81 mg PO DAILY@0800 06/05/13 12/15/22 History cholecalciferol (vitamin D3) 25 1,000 unit PO DAILY 06/05/13 Unknown History mcg (1,000 unit) capsule calcium carbonate 300 mg PO BID 02/20/16 Unknown History glucosamine sulfate 250 1 ea PO BID 02/20/16 Unknown History mg-chondroitin sulfate A 200 mg capsule pantoprazole 40 mg tablet,delayed 40 mg PO DAILY 02/20/16 12/23/22 History release cetirizine 10 mg capsule 10 mg PO DAILY PRN Allergies 10/22/18 Unknown History meloxicam 15 mg tablet 15 mg PO DAILY 12/21/22 12/15/22 History epinephrine 0.3 mg/0.3 mL 0.3 mg IM Q4H 03/28/23 Unknown History injection, auto-injector hydrochlorothiazide 12.5 mg tablet 12.5 mg PO DAILY 03/28/23 Unknown History losartan 50 mg tablet 50 mg PO BID 03/28/23 Unknown History metformin 500 mg tablet 500 mg PO BID 03/28/23 Unknown History simvastatin 10 mg tablet 10 mg PO DAILY 03/28/23 Unknown History tirzepatide 12.5 mg/0.5 mL 15 mg subcut QWEEK 09/12/23 Unknown History subcutaneous pen injector (Lucasuntioro) venlafaxine 75 mg capsule,extended 75 mg PO QHS #90 caps 09/18/24 Unknown Rx release 24 hr Allergy/AdvReac Type Severity Reaction Status Date / Time codeine Allergy Anaphylaxis Verified 10/28/24 15:47 Iodinated Contrast Media (iv Allergy Anaphylaxis Verified 10/28/24 15:47 contrast dye) shellfish derived Allergy Nausea/Vom/ Verified 10/28/24 15:47 Diarrhea Sulfa (Sulfonamide Allergy Anaphylaxis Verified 10/28/24 15:47 Antibiotics) pineapple (Pineapple) AdvReac Nausea/Vom/ Verified 10/28/24 15:47 Diarrhea squash AdvReac Nausea/Vom/ Verified 10/28/24 15:47 Diarrhea walnut AdvReac Nausea/Vom/ Verified 10/28/24 15:47 Diarrhea Family History Father Myocardial infarction Hypertension Mother Heart disease Hypertension Grandmother Heart disease Hypertension Surgical History S/P panniculectomy Hx of breast reduction, elective Hx of arthroscopy of right knee Labral tear of left hip joint History of lateral meniscus repair of left knee H/O laparoscopy H/O: hysterectomy Plantar fascia syndrome Social History Smoking Status: Former smoker alcohol intake: current details: social substance use type: does not use caffeine: Yes frequency: 3-4 times per week seatbelt use: always do you feel safe at home: Yes additional social history: seperated ROS ROS Narrative Constitutional: Reports fatigue and weakness. No fever. Complain of chills HEENT: Reports systems reviewed and no addt'l complaints, except as documented Respiratory/Chest: No acute shortness of breath or respiratory distress or wheezing. CVS: No acute chest pain or dyspnea or syncope. Gastrointestinal: Denies acute GI bleed. Rest as described in HPI. Genitourinary: Denies burning urination or new urinary tract symptoms Musculoskeletal: Denies acute joint pain or limited range of motion. No acute injury Neurologic: Denies seizure-like symptoms. skin: No ulcer. No rash Endocrinology: Reports systems reviewed and no addt'l complaints, except as documented Hematologic/Lymphatic: Reports systems reviewed and no addt'l complaints, except as documented Rest 14 ROS are negative except as mentioned in HPI Vital Signs Vital Signs Vital Signs: 10/28/24 09:29 10/28/24 11:29 10/28/24 13:00 Temperature 97.2 F L Temperature Source Temporal Pulse Rate 84 87 91 Respiratory Rate 16 15 15 Blood Pressure 174/109 H 174/80 H 188/90 H Blood Pressure Mean 130 111 122 Pulse Ox 99 98 100 Oxygen Delivery Method Room Air Weight Weight: 216 lb 0.848 oz Body Mass Index (BMI) 33.8 Physical Exam Narrative General: Alert, Oriented x3, Cooperative HEENT: Atraumatic, PERRLA, EOMI, Normocephalic. Oral: Oral mucosa dry. No Gingival or Mucosal Lesions/ Ulcerations Neck: Supple, No JVD, Negative Carotid Bruits Chest wall/Lungs: Air entry equal in bilateral lung bases. No crepitation/rhonchi Cardiovascular: Regular rate and rhythm, Normal S1,S2, No M/G/R Abdomen: Bowel Sounds Present, Soft, tenderness present around umbilical region. No point tenderness around McBurney point but slight rebound tenderness. No guarding/rigidity. : No dysuria. No renal angle tenderness. No suprapubic tenderness. Extremities: No edema, Capillary Refill Less than 3 Seconds Skin: No rashes, No breakdown Musculoskeletal: No Tenderness to Palpation of Joints or Extremities Neurological: Cranial nerves II-XII grossly intact, DTR 2+/4. No acute focal neurological deficit. Psych/Mental Status: Normal Affect, Appropriate. Results Lab / Micro Data 10/28/24 09:57 10/28/24 09:57 Labs: Laboratory Results - last 24 hr 10/28/24 09:57: WBC 20.5 H, RBC 4.49, Hgb 14.2, Hct 40.3, MCV 89.8, MCH 31.6, MCHC 35.2, RDW Std Deviation 40.9, RDW Coeff of Delia 12.5, Plt Count 315, MPV 10.2, Immature Gran % (Auto) 0.900, Neut % (Auto) 85.1 H, Lymph % (Auto) 6.1 L, [place] % (Auto) 7.7, Eos % (Auto) 0.0, Baso % (Auto) 0.2, Absolute Neuts (auto) 17.4 H, Absolute Lymphs (auto) 1.24, Nucleated RBC % 0, Platelet Estimate ADEQUATE, Sodium 142, Potassium 3.8, Chloride 103, Carbon Dioxide 22.5, Anion Gap 16 H, BUN 20 H, Creatinine 0.62 L, Estim Creat Clear Calc 121.82, Est GFR (MDRD) Non-Af 104, BUN/Creatinine Ratio 32.5 H, Glucose 128 H, Calcium 9.6, Total Bilirubin 0.46, AST 18, ALT 13, Alkaline Phosphatase 142 H, Total Protein 7.3, Albumin 4.5, Globulin 2.8, Albumin/Globulin Ratio 1.6, Lipase 45 10/28/24 10:13: Lactic Acid 2.5 H* 10/28/24 11:09: Urine Color Yellow, Urine Clarity Clear, Urine pH 5.0, Ur Specific Olla 1.020, Urine Protein 15 H, Urine Glucose (UA) Normal, Urine Ketones 5 H, Urine Occult Blood 10 H, Urine Nitrite Negative, Urine Bilirubin 1 H, Urine Urobilinogen 1 H, Ur Leukocyte Esterase 500 H, Urine RBC 0 SEEN, Urine WBC 0-5 SEEN, Ur Squamous Epith Cells 0-5 SEEN, Urine Bacteria 0 SEEN, Urine Mucus 0 SEEN 10/28/24 13:31: Lactic Acid 2.7 H* Imaging Radiology Impression Abdomen/Pelvis CT 10/28/24 10:31 IMPRESSION: 1. Probable appendicolith, as described above. There are no CT findings of acute appendicitis. 2. Subtle inflammatory changes in the distal transverse colon, suggestive of mild colitis. 3. Postsurgical changes at bilateral inframammary folds, anterior abdominal wall. Reading Location: [id number] Assessment & Plan Assessment/Plan (1) Acute abdominal pain: PLAN: Plan This is 54-year-old female being admitted for evaluation of acute abdominal pain along with nausea, vomiting and diarrhea with chills 1. Acute abdominal pain, sudden onset exact etiology unclear: Patient is being admitted on [facility] floor. Differential includes acute appendicitis, acute diverticulitis, infectious colitis or ischemic colitis. And lactic acid hide 2.5 and repeat 2.7. Patient was not hypotensive but BP was elevated 174-188 systolic. Heart rate in 80s. Denies chronic cardiac condition or A-fib. CT abdomen without contrast injury reviewed and shows appendicolith but no inflammation around appendix but subtle inflammatory changes in distal transverse colon suspected mild colitis. Infectious workup including C. difficile and enteric pathogen panel ordered. IV fluid resuscitation 30 mL/kg body weight, total 3 L required and third liter going on. After that IV fluid RL 100 mL/h. General surgery consulted and discussed with Dr. Cao. Leukocytosis, mainly neutrophil 85%. Patient given IV Zosyn in ED and started on IV cefepime and Flagyl. CT abdomen with oral contrast ordered after discussion with surgeon. Patient is anaphylactic allergic to IV iodinated contrast therefore not ordered. Keep patient NPO. 2. Systemic symptoms of abdominal pain including nausea vomiting and diarrhea and lactic acidosis: AG 16, BUN/creatinine 20/16.62. Electrolytes in normal range. IV fluid restriction as mentioned above. I do not think patient has clinical criteria of sepsis. 3. DM type II, obesity grade 1: Glucose 128. Patient on Mounjaro and will hold it. Hold metformin. Accu-Chek before meals and at bedtime with Humalog sliding scale coverage and hypoglycemia protocol. 4. Hypertension, blood pressure is elevated. Hold HCTZ and losartan. IV labetalol as needed for Hgb more than 180 mmHg. 5. Dyslipidemia: Patient on low-dose simvastatin 10 mg daily. Hold it. 6. Other comorbidities include GERD, endometriosis, chronic back pain, left hip degenerative arthritis and chronic stress incontinence: Patient denies dysuria. Patient had left hip steroid injection about a week ago. PT and OT ordered. On IV PPI 7. DVT prophylaxis, high risk: Lovenox 40 mg subcu daily ordered. Living will/advanced directive/end of life care: Patient does have living will or advanced directive. Her is power of surgery aid for health. After discussion of benefits/risks procedures involved with full code, DNR CC arrest and DNR CC, the patient opted for full code. Patient does want artificial life support including intubation, tube feed, ventilator and/chest compression, central venous catheter, vasopressor and DC shock if needed Total time spent in [id number] encounter in discussion of advanced directive 17 minutes. Laboratory Results 10/28/24 09:57: WBC 20.5 H, RBC 4.49, Hgb 14.2, Hct 40.3, MCV 89.8, MCH 31.6, MCHC 35.2, RDW Std Deviation 40.9, RDW Coeff of Delia 12.5, Plt Count 315, MPV 10.2, Immature Gran % (Auto) 0.900, Neut % (Auto) 85.1 H, Lymph % (Auto) 6.1 L, [place] % (Auto) 7.7, Eos % (Auto) 0.0, Baso % (Auto) 0.2, Absolute Neuts (auto) 17.4 H, Absolute Lymphs (auto) 1.24, Nucleated RBC % 0, Platelet Estimate ADEQUATE, Sodium 142, Potassium 3.8, Chloride 103, Carbon Dioxide 22.5, Anion Gap 16 H, BUN 20 H, Creatinine 0.62 L, Estim Creat Clear Calc 121.82, Est GFR (MDRD) Non-Af 104, BUN/Creatinine Ratio 32.5 H, Glucose 128 H, Calcium 9.6, Phosphorus Pending, Magnesium Pending, Total Bilirubin 0.46, AST 18, ALT 13, Alkaline Phosphatase 142 H, Total Protein 7.3, Albumin 4.5, Globulin 2.8, Albumin/Globulin Ratio 1.6, Lipase 45 10/28/24 10:13: Lactic Acid 2.5 H* 10/28/24 11:09: Urine Color Yellow, Urine Clarity Clear, Urine pH 5.0, Ur Specific Olla 1.020, Urine Protein 15 H, Urine Glucose (UA) Normal, Urine Ketones 5 H, Urine Occult Blood 10 H, Urine Nitrite Negative, Urine Bilirubin 1 H, Urine Urobilinogen 1 H, Ur Leukocyte Esterase 500 H, Urine RBC 0 SEEN, Urine WBC 0-5 SEEN, Ur Squamous Epith Cells 0-5 SEEN, Urine Bacteria 0 SEEN, Urine Mucus 0 SEEN 10/28/24 13:31: Lactic Acid 2.7 H* Clinical Impression(s) from Imaging Studies Abdomen/Pelvis CT 10/28/24 10:31 IMPRESSION: 1. Probable appendicolith, as described above. There are no CT findings of acute appendicitis. 2. Subtle inflammatory changes in the distal transverse colon, suggestive of mild colitis. 3. Postsurgical changes at bilateral inframammary folds, anterior abdominal wall. Reading Location: [id number] Charges/Coding Visit Charges Inpatient E&M: 99396 Init Hosp L3 Procedures Hospitalists Procedures: 76645 Advncd Care Plan 30 Min
--- OUTSIDE RECORDS SUMMARY | 2024-10-28 15:04 | XMS RPT_ITS | CCD ---
Author Organization [facility] Care Team Providers Care Card Stripper Name Role Phone Antonio Hui MD Primary Care Provider Dr. Buddy Hui Primary Care Provider Dr. Buddy Hui Referring Provider Naty STORAGE ARCHITECTKHURRAM Attending Provider Antonio Hui MD Primary Care Provider Antonio Hui MD Primary Care Provider Dr. Buddy Hui Primary Care Provider [phone] Dr. Buddy Hui Referring Provider KHURRAM Alfonso NP Attending Provider Antonio Hui MD Primary Care Provider Podlogar RACE CAR MECHANIC.Karla PALUMBO Unavailable Knoble RACE CAR MECHANIC.Eufemia PALUMBO Unavailable [place]le RACE CAR MECHANIC.Eufemia PALUMBO Unavailable Dr. Buddy Hui MD Primary Care Provider Dr. Raul Abreu DO Emergency Provider Knbalta RACE CAR MECHANIC.Eufemia PALUMBO Unavailable ANTONIO HUI Referring Unavailab le [...] HARTMANN, Dr. De La Fuente Attending Provider [phone] Ez HARTMANN, Dr. Goodwin Referring Provider Naty STORAGE ARCHITECT-C, Bessy Attending Provider Kuldip HARTMANN, Dr. De La Fuente Attending Provider Naty STORAGE ARCHITECT-C, Bessy Referring Provider [phone] Bessy Alfonso Attending Unavailable NatyBessy Referring Unavailable [...] Translations: [CODEINE] Drug Allergy 10-06-19 12 Anaphylaxis [facility] Work Phone: (2 sources) Contrast media Allergy to substance 06-28-19 22 Anaphylaxis [facility] Work Phone: (9 sources) Shellfish; Translations: [shellfish derived] Allergy to substance 06-28-19 Nausea/Vom/Tatum [facility] (20 sources) squash allergenic extract; Translations: [SQUASH] Drug Allergy 03-13-19 19 GI Upset [facility] (2 sources) strawberry allergenic extract Drug Allergy 06-28-19 22 Hives [facility] Work Phone: (9 sources) Sulfonamides (Antibiotic); Translations: [Sulfa (Sulfonamide Antibiotics)] Allergy to substance 06-28-19 Anaphylaxis [facility] (8 sources) pineapple Propensity to adverse reactions 06-28-19 22 Nausea/Vom/Tatum [facility] (2 sources) cherries Propensity to adverse reactions 06-28-19 Nausea/Vom/Tatum [facility] Work Phone: (2 sources) walnuts Propensity to adverse reactions 06-28-19 Nausea/Vom/Tatum [facility] Work Phone: (20 sources) michael allergenic extract Drug Allergy 03-13-19 19 GI Upset [facility] (20 sources) Contrast media; Translations: [CONTRAST DYE] Drug Allergy 10-06-19 12 Anaphylaxis [facility] Work Phone: (20 sources) Shellfish; Translations: [SHELLFISH CONTAINING PRODUCTS] Drug Allergy 04-30-19 17 GI Upset [facility] Work Phone: (20 sources) Perkins Food Intolerance 03-13-19 19 Other: See Comments [facility] (20 sources) walnut allergenic extract; Translations: [WALNUT] Drug Allergy 03-13-19 19 GI Upset [facility] (20 sources) Sulfa Dyne; Translations: [SULFA DYNE] Drug Allergy 10-06-19 12 Anaphylaxis [facility] Work Phone: (6 sources) Triiodobenzoic Acids Allergy to substance 09-06-19 Anaphylaxis [facility] (1 source) Codeine Drug Allergy 09-19-19 [facility] Repository (1 source) Iodinated Contrast Media Drug allergy (disorder) 09-19-19 [facility] Repository (1 source) pineapple Drug allergy (disorder) 09-19-19 [facility] Repository (1 source) walnut Drug allergy (disorder) 09-19-19 [facility] Repository Medications Current Medications Medication Drug Class(es) [...] TWICE A DAY February 20, 2016 12:00am [id number] 0.3 ml EPINEPHrine 1 mg/ml auto-injector (20 [...] NEEDE D IN THIGH glucosamine/msm/chondroit sulf (GLUCOSAMINE [id number] ORAL) (17 sources) glucosamine/msm/ chondroit sulf (GLUCOSAMINE 7QVC-[id number] ORAL) Active hydroCHLOROthiazide 12.5 mg oral tablet [...] July 09, 2021 1:00pm polyethylene glycol 3350 [id number] mg / potassium chloride 2970 mg / sodium bicarbonate 6740 mg / sodium chloride 5860 mg / sodium sulfate 53004 mg powder for oral solution (1 source) [...] CNOV Office Visit (NEAGCL M) FANTASMA HOYT ([id number]) 1970 F Date Time Provider Department 10/03/24 [...] Age: [age] year old Sex: female MRN/E# [id number] Last Office Visit: 09/05/2024 Chief Complaint: Patient [...] who is referred by Dr. Walters from [facility] for neurosurgical evaluation. Fantasma Hoyt is [...] Fantasma was evaluated by Dr. Alberto at [facility], who referred her to neurosurgery. She was currently taking Mobic for a left hip problem, which affects her gait. 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 Normal [facility] XR CERVICAL 4V AP/LAT/FLX/EX Ton 10-03-2024 [...] DISEASE AT C5/C6. MULTILEVEL FACET DEGENERATIVE CHANGES. Element Setter: SANGITA Transcribe Date/Time: Oct 10 2024 6:06P Dictated by : AMANDA HSU MD This examination was interpreted and the report reviewed and electronically signed by: AMANDA HSU MD on Oct 10 2024 6:09PM EST [id number] Normal [facility] Breast imaging reportOrdered By: Magalis Madden on 09-18-2024 Study report [facility] Imaging Services [address] [place], [place] [id number] SCRN MAMM (CAD)W/JAYMIE BILAT MR#: [id number] Acct: [id number] Name: FANTASMA RHOADES Rep #: [id number] : 1970 F 54 From: Roman Garrett MD PCP: Dr. Buddy Hui MD Status: [facility] Study:SCRN MAMM (CAD)W/JAYMIE BILAT Date of Exa m: 09/18/24 Exam# [id number] Ordering Dr: Bessy Alfonso NP STORAGE ARCHITECT-C EXAM: SCRN MAMM (CAD)W/JAYMIE BILAT DATE: 09/18/2024 [...] be mailed to the patient. Reading Location: [id number] CC: STORAGE ARCHITECTVargas Alfonso; Dr. Buddy Hui MD ~ Element Setter: Signed [facility] Manager Restaurant Office Visit Reporton 09-18-2024 Manager Restaurant Office Visit Report [facility] [address], [address] [place] [address] OFFICE VISIT Date of Service: 09/18/24 MR#: [id number] Acct: [id number] Name: FANTASMA RHOADES Rep #: [id number] : 1970 Provider: KHURRAM bridges Age/Sex: 54/F Location: [facility] Status: Signed Intake Vital Signs 02/17/24 13:59 08/06/24 08:24 09/18/24 14:28 09/18/24 14:32 Height 5 ft 7 in 5 ft 7 in 5 ft 7 in 5 ft 7 in Weight: 218 lb 8 oz BMI 34.2 BP 136/84 H 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 Normal [facility] SCRN MAMM (CAD)W/JAYMIE BILATo n 09-18-2024 SCRN MAMM (CAD)W/JAYMIE BILAT [facility] Imaging Services [address] [place] [address] [id number] SCRN MAMM (CAD)W/JAYMIE BILAT MR#: [id number] Acct: [id number] Name: FANTASMA RHOADES Rep #: [id number] : 1970 F 54 From: Magalis Sheridan i, MD PCP: Dr. Buddy Hui MD Status: [facility] Study: SCRN MAMM (CAD)W/JAYMIE BILAT Date of Exam: 08/29 04/24 Exam# [id number] Ordering Dr: Bessy Alfonso STORAGE ARCHITECT STORAGE ARCHITECT -C EXAM: SCRN MAMM (CAD)W/JAYMIE BILAT DATE: [...] be mailed to the patient. Reading Location: [id number] CC: KHURRAM Alfonso; Dr. Buddy Hui MD Element Setter: Signed Normal [facility] CNOVon 09-05-2024 CNOV Office Visit (NEAGCL M) FANTASMA HOYT ([id number]) 1970 F Date Time Provider Department 09/05/24 [...] Age: [age] year old Sex: female MRN/E# [id number] Chief Complaint: No chief complaint on file. [...] who is referred by Dr. Walters from [facility] for neurosurgical evaluation. Fantasma Hoyt is [...] Fantasma was evaluated by Dr. Alberto at [facility], who referred her to neurosurgery. She is currently taking Mobic for a left hip problem, which affects her gait. 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 6 mL 1 meloxicam (MOBIC) 15 mg tablet Take 1 tablet by mouth once daily. 90 tablet 0 meloxicam (MOBIC) 15 (more content not included)... Normal [facility] Emergency Department Summary on 08-06-2024 Emergency Department Summary [facility] Medical Records Department [address] [place] [address] Emergency Department Summary 08/06/24 MR#: [id number] Acct: [id number] Name: FANTASMA RHOADES Rep #: [id number] : 1970 54 From: Raul Abreu DO [...] intact Psych: Cooperative, appropriate mood and affect [facility] Medical History JENNIFFER (stress urinary incontinence, female) [...] Former smo (more content not included)... Normal [facility] ALBUMIN/CREATININE RATIO, UR INEon 04-30-2024 Albumin DL <= 20 mg/L (U) [Mass/Vol] mg/dL Normal [facility] Comment on above: Order Comment: Speci men Type: URINE SPECIMENOrdering Facility: [facility] Address: [address] [place] [address] Performed By: #### U ACR ####[facility] LABIA [id number] [address] [place] Albumin/Creatinine (U) [Mass ratio] Normal [facility] Comment on above: Order Comment: Speci men Type: URINE SPECIMENOrdering Facility: [facility] Address: [address] [place] [address] Result Comment: Not calculated Adult Male and Female Nephrotic Criteria: <30 mg/g is considered normal to mildly increased 30-300 mg/g is considered moderately increased >300 mg/g is considered severely increased KDIGO. (2013). KDIGO 2012 Clinical Practice Guideline for the Evaluation and Management of Chronic Kidney Disease. Official Journal of the International Society of Nephrology, 3(1), 1-150. Performed By: #### U ACR ####[facility] LAB[facility] [id number] [place] [address] [place] Creatinine (U) [Mass/Vol] 29.8 mg/dL Normal 20.0-300.0 [facility] Comment on above: Order Comment: Speci men Type: URINE SPECIMENOrdering Facility: [facility] Address: [address] [place] [address] Performed By: #### U ACR ####[facility] LABIA [id number] [address] STATES OF [facility] CNOVon 04-30-2024 CNOV Office Visit (CRISTÓBALWS ) FANTASMA HOYT ([id number]) 1970 F Date Time Provider Department 04/30/24 [...] Shellfish Containing Products, Squash, Sulfa Dyne, and [place] MEDICATIONS Current Outpatient Medications Medication Sig phenazopyridine (PYRIDIUM) 200 mg tablet Take 1 tablet by mouth three times a day as needed. cyclobenzaprine (FLEXERIL) 10 mg tablet Take 1 tablet by mouth two times a day as needed for muscle spasm. phenazopyridine (PYRIDIUM) 200 mg tablet Take 1 tablet by mouth three times a day as needed. glucosamine/msm/chondro it sulf (GLUCOSAMINE [id number] ORAL) cyclobenzaprine (FLEXERIL) 10 mg tablet Take [...] SYSTEMS A (more content not included)... Normal [facility] Bacteria Ur Culton 5 Bacteria identified Cx Nom (U) ORGANISM ID: 1 10,000 -<50,000 CFU/ml Normal urogenital pierre Normal [facility] Comment on above: Performed By: #### 6 30-4 ####[facility] LABCLIA [id number] [address] OF [facility] CNOVon 04-11-2024 CNOV Office Visit (CRISTÓBALWS ) EVELINAFANTASMA H ([id number]) 1970 F Date Time Provider Department 04/11/24 [...] disease), cervical DDD (degenerative disc disease), lumbar [facility] Castillo Diabetes mellitus type II (HCC) [...] Hypertension Father Coronary Artery Disease Father 59 [place] in 2010- LDa Thyroid Sister Thyroid Sister Heart Maternal Grandmother Rheumatologic disease Paternal Grandmother arthritis Patient Allergies ALLERGIES Allergen Reactions Codeine Anaphylaxis Contrast Dye Anaphylaxis Shellfish Containin* GI Upset Squash GI Upset Sulfa Dyne Anaphylaxis [place] GI Upset Current Medications Current Outpatient Medications on File Prior to Visit Medication Sig cyclobenzaprine (FLEXERIL) 10 mg tablet Take 1 tablet by mouth two times a day as needed for muscle spasm. phenazopyridine (PYRIDIUM) 200 mg tablet Take 1 tablet by mouth three times a day as needed. glucosamine/msm/chondro it sulf (GLUCOSAMINE [id number] ORAL) cyclobenzaprine (FLEXERIL) 10 mg tablet Take [...] hr capsu (more content not included)... Normal [facility] UA DIP, URINE (POC)on 2024 BILIRUBIN UA (POCT) Negative Negative [facility] CLARITY UA (POCT) Clear [facility] COLOR UA (POCT) Yellow [facility] GLUCOSE UA (POCT) Negative Negative mg/dL [facility] Hemoglobin Ql (U) Trace-intact Abnormal Negative [facility] Interpretation and review of laboratory results Abnormal [facility] KETONE UA (POCT) Negative Negative mg/dL [facility] LEUKOCYTES UA (POCT) Small Abnormal Negative [facility] NITRITE UA (POCT) Negative Negative [facility] PH UA (POCT) 5.5 4.5 - 8.0 [facility] Protein Ql (U) Negative Negative mg/dL [facility] SPECIFIC GRAVITY UA (POCT) >=1.030 1.005 - 1.030 [facility] UROBILINOGEN UA (POCT) 0.2 Viktoriya l E.U./dL [facility] Location:[address], [place], [place], [id number] [place] [address] POINT OF CARE [facility] CNOVon 04-02-2024 CNOV Office Visit (FAMPWS ) FANTASMA HOYT ([id number]) 1970 F Date Time Provider Department 04/02/24 [...] Hypertension Father Coronary Artery Disease Father 59 [place] in 2010- LDa Thyroid Sister Thyroid Sister Heart Maternal Grandmother Rheumatologic disease Paternal Grandmother arthritis Patient Allergies ALLERGIES Allergen Reactions Codeine Anaphylaxis Contrast Dye Anaphylaxis Shellfish Containin* GI Upset Squash GI Upset Sulfa Dyne Anaphylaxis [place] GI Upset Current Medications Current Outpatient Medications on File Prior to Visit Medication Sig glucosamine/msm/chondro it sulf (GLUCOSAMINE [id number] ORAL) cyclobenzaprine (FLEXERIL) 10 mg tablet Take [...] History Soc (more content not included)... Normal [facility] XR SHLDR >/=3V AP/MO AP/OTH R LTon [...] fracture or dislocation. IMPRESSION: Mild degenerative change Element Setter: SANGITA Transcribe Date/Time: Apr 04 2024 9:20A Dictated by : SANIA LANCE MD This examination was interpreted and the report reviewed and electronically signed by: SANIA LANCE MD on Apr 04 2024 9:21AM EST [id number] Normal [facility] CNPFrancie 03-13-2024 CNPN Telephone (UCWSTR) FANTASMA HOYT ([id number]) 1970 F Date Time Provider Department 03/13/24 [facility]N [facility] During your visit today, we recorded the [...] as needed. - glucosamine/msm/chondro it sulf (GLUCOSAMINE [id number] ORAL) - cyclobenzaprine (FLEXERIL) 10 mg tablet [...] Status:Closed by KALLIE GUEVARA on 03/13/24 Normal [facility] Bacteria Ur Culton 5 Bacteria identified Cx Nom (U) ORGANISM ID: 1 10,000 -<50,000 CFU/ml Normal urogenital pierre Normal [facility] Comment on above: Performed By: #### 6 30-4 ####[facility] LABCLIA [id number] [address] OF [facility] CNOVon 03-12-2024 CNOV Office Visit (UCWSTR ) FANTASMA HOYT ([id number]) 1970 F Date Time Provider Department 03/12/24 10:15 AM [facility]N [facility] During your visit today, we recorded the following information about you: Temperature Pulse Respiration Blood pressure 96.9 degrees 95/minute 20/minute 140/86 Weight 98.7 kg Kamryn Duran PA 03/12/2024 9:49 AM Signed This note was created using GoPlanitriter. Subjective Fantasma Hoyt is a 53 year [...] Shellfish Containing Products, Squash, Sulfa Dyne, and [place] MEDICATIONS glucosamine/msm/chondro it sulf (GLUCOSAMINE 8VXT-DHF-[id number] ORAL) cyclobenzaprine (FLEXERIL) 10 mg tablet Take [...] Hypertension Father Coronary Artery Disease Father 59 [place] in 2009- Thyroid Sister Thyroid Sister Heart [...] chest pain. (more content not included)... Normal [facility] Bryan 03-12-2024 SERGIO Telephone (UCWSTR) FANTASMA HOYT ([id number]) 1970 F Date Time Provider Department 03/12/24 [facility]RYN [facility] During your visit today, we recorded the following information about you: Chrissie Sidhu RN 03/12/2024 10:21 AM Signed Patient reports she was evaluated by provider CARLOS Rodriguez at [facility] this morning and it was pt's understanding that Pyridium (or other) was going to be sent to her pharmacy along with her Macrobid, to help her bladder spasms. Pt asking if provider can send it to [facility]? She is at pharmacy now. Please call patient back with an update. [phone] MIKAELA Vo Krislyn P, PA 03/12/2024 10:29 AM Signed Sent in. If taking this, do not take Azo [id number]-eerykeh Kallie Guevara MA 03/12/2024 11:02 AM Signed [...] as needed. - glucosamine/msm/chondro it sulf (GLUCOSAMINE [id number]-[id number]-DJKRHJYEX ORAL) - cyclobenzaprine (FLEXERIL) 10 mg tablet [...] Status:Closed by KALLIE GUEVARA on 03/12/24 Normal [facility] UA DIP, URINE (POC)on 2024 BILIRUBIN UA (POCT) Negative Negative Carlos [facility] CLARITY UA (POCT) Clear [facility] COLOR UA (POCT) Yellow [facility] GLUCOSE UA (POCT) Negative Negative mg/dL [facility] Hemoglobin Ql (U) Moderate Abnormal Negative [facility] Interpretation and review of laboratory results Abnormal [facility] KETONE UA (POCT) Negative Negative mg/dL [facility] LEUKOCYTES UA (POCT) Small Abnormal Negative [facility] NITRITE UA (POCT) Negative Negative [facility] PH UA (POCT) 6.5 4.5 - 8.0 [facility] Protein Ql (U) 30 mg/dL Abnormal Negative [facility] SPECIFIC GRAVITY UA (POCT) >=1.030 1.005 - 1.030 [facility] UROBILINOGEN UA (POCT) 0.2 Viktoriya l E.U./dL [facility] Location:[address], [place], [place], [address] [place] [address] POINT OF CARE [facility] CNOVon 02-21-2024 CNOV Office Visit (UCWSTR ) FANTASMA HOYT ([id number]) 1970 F Date Time Provider Department 02/21/24 11:15 AM LIS ROTH UCWSTR During your visit today, we recorded the following information about you: Temperature Pulse Respiration Blood pressure 97 degrees 102/minute 18/minute 146/92 Weight 95.5 kg Lis Roth APRN.DEEPALI 02/21/2024 11:28 AM Signed Subjective The history is provided by the patient. No hourly sign language interpreter was used. NIMESH Hoyt is a 53 [...] disease), cervical DDD (degenerative disc disease), lumbar [facility] Castillo Diabetes mellitus type II (HCC) Endometriosis GERD (gastroesophageal reflux disease) Hot flashes Hyperlipidemia Hypertension Labral tear of hip, degenerative left hip, Seeing ortho Obesity Plantar fasciitis of right foot 2013 s/p plantar fasciotomy S/P hysterectomy LSO Seasonal allergies Uterine fibroid s/p hysterectomy I have confirmed and edited as necessary, the [facility] Review of Systems Constitutional: Negative for chills [...] of 02/21/2024 - glucosamine/msm/chondro it sulf (GLUCOSAMINE [id number]-MPV-[id number] ORAL) - cyclobenzaprine (FLEXERIL) 10 mg tablet Take 1 tablet by mouth three times a day as needed for muscle spasm. - predniSONE (DELTASONE) 20 mg tablet Take 2 tablets by mouth once daily for 5 days. - benzonatate (TESSALON PERLE) 100 mg capsule Take 1 capsule by mouth three times a day as needed for co (more content not included)... Normal [facility] 12 Lead EKGon 02-17-2024 12 Lead EKG [facility] Cardiovascular Services [address] [place] [address] 12 Lead EKG 02/17/24 1427 MR#: [id number] Acct: [id number] Name: FANTASMA RHOADES Rep #: [id number] : 1970 53 From: Beny Jameson MD [...] : 410 ms Sinus rhythm with short [place] Otherwise normal ECG Confirmed by FELICITA HARTMANN, BENY ([id number]), technical editor JOSELINE HILL ([id number]) on 02/20/2024 6:37:32 AM Referred By: Confirmed By: BENY JAMESON MD 02/20/24 0637 Date Beny Jameson MD CC: Dr. Buddy Hui MD; Dr. Shade Richards DO Signed Normal [facility] Basic Metabolic Profile (BMP )on 02-17-2024 BUN/CRE 43.1 RATIO High 12-17 [facility] Comment on above: Order Comment: 1 Y Performed By: #### L 501.9555, L501.5472, L100.0100, L500.2500 #### [facility] Laboratory [address] [facility] [place], [address] CA,Total 9.2 mg/dL Normal 8.5-10.1 [facility] Comment on above: Order Comment: 1 Y Performed By: #### L 501.9520, L501.5425, L100.0100, L500.2500 #### [facility] [address] [place], [address] Chloride [Moles/Vol] 107 mmol/L Normal 98-107 [facility] Comment on above: Order Comment: 1 Y Performed By: #### L 501.9520, L501.5425, L100.0100, L500.2500 #### [facility] [address] [place], [address] CO2 [Moles/Vol] 27.0 mmol/L Normal 21.0-32.0 [facility] Comment on above: Order Comment: 1 Y Performed By: #### L 501.9520, L501.5425, L100.0100, L500.2500 #### [facility] Laboratory [address] [place], [address] Creatinine [Mass/Vol] 0.67 mg/dL Normal 0.55-1.02 [facility] Comment on above: Order Comment: 1 Y Result Comment: The validity of the calculated GFR GFRAA in patients over 70 years has not been determined. Clinical correlation is essential. Performed By: #### L 501.9520, L501.5425, L100.0100, L500.2500 #### [facility] [address] [place], [address] ECRCL 111.06 ml/min Normal [facility] Comment on above: Order Comment: 1 Y Performed By: #### L 501.9520, L501.5425, L100.0100, L500.2500 #### [facility] [address] [place], [address] EST GFR - AA 117 mL/min Normal >60 [facility] Comment on above: Order Comment: 1 Y Result Comment: Afri can Stateless GFR Calc Performed By: #### L 501.9520, L501.5425, L100.0100, L500.2500 #### [facility] [address] [place], [address] GAP 6 Normal 5-15 [facility] Comment on above: Order Comment: 1 Y Performed By: #### L 501.9520, L501.5425, L100.0100, L500.2500 #### [facility] [address] [place], [address] GFR/1.73 sq M.predicted among non-blacks MDRD (S/P/Bld) [Vol rate/Area] 96 mL/min/{1.73_m2} Normal >60 [facility] Comment on above: Order Comment: 1 Y Result Comment: Non- GFR Calc Performed By: #### L 501.9520, L501.5425, L100.0100, L500.2500 #### [facility] [address] [place], [address] Glucose [Mass/Vol] 114 mg/dL High 74-106 [facility] Comment on above: Order Comment: 1 Y Result Comment: Fast ing Glucose result from 100 to 125 mg/dL suggests IMPAIRED HOMEOSTASIS per A.D.A. criteria. Performed By: #### L 501.9520, L501.5425, L100.0100, L500.2500 #### [facility] [address] [place], [address] Potassium [Moles/Vol] 3.3 mmol/L Low 3.5-5.1 [facility] Comment on above: Order Comment: 1 Y Performed By: #### L 501.9520, L501.5425, L100.0100, L500.2500 #### [facility] [address] [place], [address] Sodium [Moles/Vol] 139 mmol/L Normal 136-145 [facility] Comment on above: Order Comment: 1 Y Performed By: #### L 501.9520, L501.5425, L100.0100, L500.2500 #### [facility] [address] [place], [address] Urea nitrogen [Mass/Vol] 29 mg/dL High 7-18 [facility] Comment on above: Order Comment: 1 Y Performed By: #### L 501.9520, L501.5425, L100.0100, L500.2500 #### [facility] [address] [place], [address] CBC W/Diff, Automatedon 12-2 0-4 Absolute Lymph 1.59 X10 3/uL Normal 0.83-4.51 [facility] Comment on above: Performed By: #### L 501.9520, L501.5425, L100.0100, L500.2500 #### [facility] [address] [place], [address] Absolute Neut 8.3 X10 3/uL High 2.0-7.7 [facility] Comment on above: Performed By: #### L 501.9520, L501.5425, L100.0100, L500.2500 #### [facility] [address] [place], [address] Basophils/100 WBC (Bld) 0.3 % Normal 0-1 [facility] Comment on above: Performed By: #### L 501.9520, L501.5425, L100.0100, L500.2500 #### [facility] [address] [place], [address] Eosinophils/100 WBC (Bld) 1.0 % Normal 0-5 [facility] Comment on above: Performed By: #### L 501.9520, L501.5425, L100.0100, L500.2500 #### [facility] [address] [place], [address] Erythrocyte distribution width (RBC) [Ratio] 13.2 % Normal 11.6-14.6 [facility] Comment on above: Performed By: #### L 501.9520, L501.5425, L100.0100, L500.2500 #### [facility] [address] [place], [address] Hematocrit (Bld) [Volume fraction] 39.9 % Normal 37-47 [facility] Comment on above: Performed By: #### L 501.9520, L501.5425, L100.0100, L500.2500 #### [facility] [address] [place], [address] Hemoglobin (Bld) [Mass/Vol] 13.4 g/dL Normal 12.0-15.0 [facility] Comment on above: Performed By: #### L 501.9520, L501.5425, L100.0100, L500.2500 #### [facility] [address] [place], [address] IG% 0.500 Normal 0.0-0.9 [facility] Comment on above: Result Comment: IG% - Immature Granulocytes (promyelocytes, myelocytes and metamyelocytes) > 1% indicates that a LEFT SHIFT is Present. Performed By: #### L 501.9520, L501.5425, L100.0100, L500.2500 #### [facility] [address] [place], [address] Lymphocytes/100 WBC (Bld) 14.7 % Low 19-41 [facility] Comment on above: Performed By: #### L 501.9520, L501.5425, L100.0100, L500.2500 #### [facility] [address] [place], [address] MCH (RBC) [Entitic mass] 30.7 pg Normal 27.0-32.0 [facility] Comment on above: Performed By: #### L 501.9520, L501.5425, L100.0100, L500.2500 #### [facility] [address] [place], [address] MCHC (RBC) [Mass/Vol] 33.6 g/dL Normal 32-36 [facility] Comment on above: Performed By: #### L 501.9520, L501.5425, L100.0100, L500.2500 #### [facility] [address] [place], [address] MCV (RBC) [Entitic vol] 91.5 fL Normal 81-99 [facility] Comment on above: Performed By: #### L 501.9520, L501.5425, L100.0100, L500.2500 #### [facility] [address] [place], [address] Monocytes/100 WBC (Bld) 7.3 % Normal 0-10 [facility] Comment on above: Performed By: #### L 501.9520, L501.5425, L100.0100, L500.2500 #### [facility] [address] [place], [address] Neutrophils/100 WBC (Bld) 76.2 % High 47-70 [facility] Comment on above: Performed By: #### L 501.9520, L501.5425, L100.0100, L500.2500 #### [facility] [address] [place], [address] Nucleated RBC (Bld) [#/Vol] 0 10*3/uL Normal 0-5 [facility] Comment on above: Performed By: #### L 501.9520, L501.5425, L100.0100, L500.2500 #### [facility] [address] [place], [address] Platelet mean volume (Bld) [Entitic vol] 9.8 fL Normal 6.2-12.0 [facility] Comment on above: Performed By: #### L 501.9520, L501.5425, L100.0100, L500.2500 #### [facility] [address] [place], [address] Platelets (Bld) [#/Vol] 418 10*3/uL Normal 150-450 [facility] Comment on above: Performed By: #### L 501.9520, L501.5425, L100.0100, L500.2500 #### [facility] [address] [place], [address] RBC (Bld) [#/Vol] 4.36 10*6/uL Normal 4.2-5.4 [facility] Comment on above: Performed By: #### L 501.9520, L501.5425, L100.0100, L500.2500 #### [facility] [address] [place], [address] RDW SD 44.2 fl High 35.1-43.9 [facility] Comment on above: Performed By: #### L 501.9520, L501.5425, L100.0100, L500.2500 #### [facility] [address] [place], [address] WBC (Bld) [#/Vol] 10.8 10*3/uL Normal 4.4-11.0 [facility] Comment on above: Performed By: #### L 501.9520, L501.5425, L100.0100, L500.2500 #### [facility] [address] [place], [address] Chest PA and Lateralon 02-16 Chest PA and Lateral [facility] [address] [place] [address] Chest PA and Lateral MR#: [id number] Acct: [id number] Name: FANTASMA RHOADES Rep #: [id number] : 1970 F 53 From: Jordy Hopkins MD PCP: Dr. Buddy Hui MD Status: REG ER Study: Chest PA and Lateral Date of Exam: 02/17/24 Exam# [id number] Ordering Dr: [place] [id number] EXAM: XR CHEST, 2 VIEWS CLINICAL INDICATION: [...] Buddy Hui MD; Dr. Shade Richards DO Element Setter: Signed Normal [facility] Emergency Department Summary on 02-17-2024 Emergency Department Summary [facility] Medical Records Department [address] [place] [address] Emergency Department Summary 02/17/24 MR#: [id number] Acct: [id number] Name: FANTASMA RHOADES Rep #: [id number] : 1970 53 From: Shade Richards DO [...] of blood clots denies any travel history. [facility] Medical History JENNIFFER (stress urinary incontinence, female) [...] acute distress (more content not included)... Normal [facility] L501.4020on 02-17-2024 TROPONIN-I HS 3 pg/mL Normal 3.0-54.0 [facility] Comment on above: Result Comment: Josefina victoria Note: New Test Units and Gender Specific Reference Ranges. For more information see Policy Stat Procedure [place] High Sensitivity Troponin (TNIH) and attachments. Performed By: #### L 501.4020 #### [facility] [address] [place], [address] L501.5425on 02-17-2024 TROPONIN-I HS 3 pg/mL Normal 3.0-54.0 [facility] Comment on above: Order Comment: 1 Y Result Comment: Josefina victoria Note: New Test Units and Gender Specific Reference Ranges. For more information see Policy Stat Procedure [place] High Sensitivity Troponin (TNIH) and attachments. Performed By: #### L 501.9520, L501.5425, L100.0100, L500.2500 #### [facility] [address] [place], [address] Thyroid Stim Hormone (TSH)on 02-17-2024 TSH 0.914 uIU/mL Normal 0.358-3.740 [facility] Comment on above: Order Comment: 1 Y Performed By: #### L 501.9520, L501.5425, L100.0100, L500.2500 #### [facility] [address] [place], [address] CNOVon 01-30-2024 CNOV Office Visit (UCWSTR ) FANTASMA HOYT ([id number]) 1970 F Date Time Provider Department 01/30/24 12:30 PM WILLIAN ANDREW WS During your visit today, we recorded the following information about you: Temperature Pulse Respiration Blood pressure 97.5 degrees 78/minute 18/minute 152/98 Weight 99.2 kg Willian Andrew, [employer]IC.VENT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 01/30/2024 12:25 PM Signed Treatment for Viral [...] Sudafed is a safe and effective decongestant [place] Nasal [place] may offer relief of nasal and head [...] getting worse rather than better Willian Andrew APRN.VENT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 01/30/2024 1:43 PM Signed Patient presents with: [...] Upset Squash GI Upset Sulfa Dyne Anaphylaxis [place] GI Upset Medications: tirzepatide (MOUNJARO) 15 mg/0.5 [...] benzonatate (CHAN (more content not included)... Normal [facility] STREP A MOLECULAR (POC)on Procedural Control Valid [facility] Strep A (POCT) Negative Negative [facility] CNOVon 10-07-2023 CNOV Office Visit (FAMPWS ) FANTASMA RHOADES ([id number]) 1970 F Date Time Provider Department 10/07/23 [...] date: DDD (degenerative disc disease), lumbar Comment: [place] [facility] Castillo No date: Diabetes mellitus type II ([facility]) No date: Endometriosis No date: GERD (gastroesophageal reflux disease) No date: Hot flashes No date: Hyperlipidemia No date: Hypertension No date: Labral tear of hip, degenerative Comment: left hip, Seeing ortho No date: Morbid obesity with BMI of 40.0-44.9, adult ([facility]) 2014: Plantar fasciitis of right foot Comment: [...] Hypertension Father Coronary Artery Disease Father 59 [place] in 2010- LDa Thyroid Sister Thyroid Sister Heart Maternal Grandmother Rheumatologic disease Paternal Grandmother arthritis Patient Allergies ALLERGIES Allergen Reactions Codeine Anaphylaxis Contrast Dye Anaphylaxis Shellfish Containin* GI Upset Squash GI Upset Sulfa Dyne Anaphylaxis [place] GI Upset Current Medications Current Outpatient Medications [...] tablets gini (more content not included)... Normal [facility] Comprehensive metabolic 2000 panelon 10-07-2023 Albumin [Mass/Vol] 4.4 g/dL 3.9 - 4.9 g/dL [facility] ALP [Catalytic activity/Vol] 81 U/L 34 - 123 U/L [facility] ALT [Catalytic activity/Vol] 15 U/L 7 - 38 U/L [facility] Anion gap [Moles/Vol] 10 mmol/L 8 - 15 mmol/L [facility] AST [Catalytic activity/Vol] 16 U/L 13 - 35 U/L [facility] Bilirubin [Mass/Vol] 0.2 mg/dL 0.2 - 1 .3 mg/dL [facility] Calcium [Mass/Vol] 9.5 mg/dL 8.5 - 10. 2 mg/dL [facility] Chloride [Moles/Vol] 104 mmol/L 98 - 10 7 mmol/L [facility] CO2 [Moles/Vol] 27 mmol/L 22 - 30 mmol/L [facility] Creatinine [Mass/Vol] 0.60 mg/dL 0.58 - 0.96 mg/dL [facility] GFR/1.73 sq M.predicted among non-blacks MDRD (S/P/Bld) [Vol rate/Area] 106 mL/min/{1.73_m2} - PINF [facility] Comment on above: Estimated Glomerular Filtration [...] [Mass/Vol] 95 mg/dL 74 - 99 mg/dL [facility] Comment on above: The Stateless Diabete s Association (ADA) provides guidance for [...] Standards of Medical Care in Diabetes 2016, Stateless Diabetes Association. Diabetes Care. 2016.39(Suppl 1). Interpretation and review of laboratory results Normal [facility] Potassium [Moles/Vol] 4.6 mmol/L 3.7 - 5.1 mmol/L [facility] Protein [Mass/Vol] 7.0 g/dL 6.3 - 8.0 g/dL [facility] Sodium [Moles/Vol] 141 mmol/L 136 - 144 mmol/L [facility] Urea nitrogen [Mass/Vol] 11 mg/dL 7 - 21 mg/dL [facility] Albumin [Mass/Vol] 4.4 g/dL Normal 3.9-4.9 [facility] Comment on above: Order Comment: Speci men Type: BLOOD SPECIMENOrdering Facility: [facility] Address: [address] [place] [address] [place] [address] Performed By: #### 2 4323-8 ####[facility] LABCLIA [id number] [place] [address] [place] ALP [Catalytic activity/Vol] 81 U/L Normal 34-123 [facility] Comment on above: Order Comment: Speci men Type: BLOOD SPECIMENOrdering Facility: [facility] Address: [address] [place] [address] Performed By: #### 2 4323-8 ####[facility] LABCLIA [id number] [place] [address] [place] ALT [Catalytic activity/Vol] 15 U/L Normal 7-38 [facility] Comment on above: Order Comment: Speci men Type: BLOOD SPECIMENOrdering Facility: [facility] Address: [address] [place] [address] Performed By: #### 2 4323-8 ####[facility] LABCLIA [id number] [place] [address] [place] Anion gap [Moles/Vol] 10 mmol/L Normal 8-15 [facility] Comment on above: Order Comment: Speci men Type: BLOOD SPECIMENOrdering Facility: [facility] Address: [address] [place] [address] Performed By: #### 2 4323-8 ####[facility] LABCLIA [id number] [place] [address] [place] AST [Catalytic activity/Vol] 16 U/L Normal 13-35 [facility] Comment on above: Order Comment: Speci men Type: BLOOD SPECIMENOrdering Facility: [facility] Address: [address] [place] [address] Performed By: #### 2 4323-8 ####[facility] LABCLIA [id number] [place] [address] [place] Bilirubin [Mass/Vol] 0.2 mg/dL Normal 0.2-1.3 [facility] Comment on above: Order Comment: Speci men Type: BLOOD SPECIMENOrdering Facility: [facility] Address: [address] [place] [address], [place] [address] Performed By: #### 2 4323-8 ####[facility] LABCLIA [id number] [address] [address] [place] Calcium [Mass/Vol] 9.5 mg/dL Normal 8.5-10.2 [facility] Comment on above: Order Comment: Speci men Type: BLOOD SPECIMENOrdering Facility: [facility] Address: [address] [place], [place] [address] Performed By: #### 2 4323-8 ####[facility] LABCLIA [id number] [place] [address] [place] Chloride [Moles/Vol] 104 mmol/L Normal 98-107 [facility] Comment on above: Order Comment: Speci men Type: BLOOD SPECIMENOrdering Facility: [facility] Address: [address] [place], [place] [address] Performed By: #### 2 4323-8 ####[facility] LABCLIA [id number] [place] [address] [place] CO2 [Moles/Vol] 27 mmol/L Normal 22-30 [facility] Comment on above: Order Comment: Speci men Type: BLOOD SPECIMENOrdering Facility: [facility] Address: [address] [place] [address] Performed By: #### 2 4323-8 ####[facility] LABCLIA [id number] [address] [address] [place] Creatinine [Mass/Vol] 0.60 mg/dL Normal 0.58-0.96 [facility] Comment on above: Order Comment: Speci men Type: BLOOD SPECIMENOrdering Facility: [facility] Address: [address] [place], [place] [address] Performed By: #### 2 4323-8 ####[facility] LABCLIA [id number] [address] [id number] [address] [place] Creatinine and Glomerular filtration rate.predicted panel (S/P/Bld) 106 mL/min/1.73m??? Normal >=60 [facility] Comment on above: Order Comment: Patsy israel Type: BLOOD SPECIMENOrdering Facility: [facility] Address: [address] [place] [address] Result Comment: Miracle mated Glomerular Filtration Rate [...] actual GFR. Performed By: #### 2 4323-8 ####[facility] LABCLIA [id number] [place] [address] [place] Glucose [Mass/Vol] 95 mg/dL Normal 74-99 [facility] Comment on above: Order Comment: Patsy israel Type: BLOOD SPECIMENOrdering Facility: [facility] Address: [address] [place] [address] Result Comment: The Stateless Diabetes Association (ADA) provides guidance for cutoff [...] Standards of Medical Care in Diabetes 2016, Stateless Diabetes Association. Diabetes Care. 2016.39(Suppl 1). Performed By: #### 2 4323-8 ####[facility] LABIA [id number] [place] [address] [place] Potassium [Moles/Vol] 4.6 mmol/L Normal 3.7-5.1 [facility] Comment on above: Order Comment: Speci men Type: BLOOD SPECIMENOrdering Facility: [facility] Address: [address] [place] [address] Performed By: #### 2 4323-8 ####[facility] LABCLIA [id number] [place] [id number] [place] Protein [Mass/Vol] 7.0 g/dL Normal 6.3-8.0 [facility] Comment on above: Order Comment: Speci men Type: BLOOD SPECIMENOrdering Facility: [facility] Address: [address] [place] [address] Performed By: #### 2 4323-8 ####[facility] LABCLIA [id number] [place] [address] [place] Sodium [Moles/Vol] 141 mmol/L Normal 136-144 [facility] Comment on above: Order Comment: Speci men Type: BLOOD SPECIMENOrdering Facility: [facility] Address: [address] [place] [address] Performed By: #### 2 4323-8 ####[facility] LABCLIA [id number] [place] [address] [place] Urea nitrogen [Mass/Vol] 11 mg/dL Normal 7-21 [facility] Comment on above: Order Comment: Speci men Type: BLOOD SPECIMENOrdering Facility: [facility] Address: [address] [place] [address] Performed By: #### 2 4323-8 ####[facility] LABCLIA [id number] [place] [id number] [place] HbA1c (Bld)on 10-07-2023 Average glucose Estimated from glycated hemoglobin (Bld) [Mass/Vol] 94 mg/dL [facility] Comment on above: eAG: (Estimated aver age glucose) is a calculated value from HgbA1c and is senior outside sales representative of the average blood glucose level in the last 2-3 month period. HbA1c (Bld) [Mass fraction] 4.9 % 4.3 - 5.6 % [facility] Comment on above: Stateless Diabetes As sociation guidelines indicate that patients with HgbA1c in the range 5.7-6.4% are at increased risk for development of diabetes, and intervention by lifestyle modification may be beneficial. HgbA1c greater or equal to 6.5% is considered diagnostic of diabetes. [facility] Average glucose Estimated from glycated hemoglobin (Bld) [Mass/Vol] 94 mg/dL Normal [facility] Comment on above: Order Comment: Speci men Type: BLOOD SPECIMENOrdering Facility: [facility] Address: [address] [place] [address] Result Comment: eAG: (Estimated average glucose) is a calculated value from HgbA1c and is senior outside sales representative of the average blood glucose level in the last 2-3 month period. Performed By: #### 5 5454-3 ####[facility] LABIA [id number] [place] [address] [place] HbA1c (Bld) [Mass fraction] 4.9 % Normal 4.3-5.6 [facility] Comment on above: Order Comment: Patsy israel Type: BLOOD SPECIMENOrdering Facility: [facility] Address: [address] [place] [address] Result Comment: Amer [place] Diabetes Association guidelines indicate that patients with HgbA1c in the range 5.7-6.4% are at increased risk for development of diabetes, and intervention by lifestyle modification may be beneficial. HgbA1c greater or equal to 6.5% is considered diagnostic of diabetes. Performed By: #### 5 5454-3 ####[facility] LABCLIA [id number] [place] [address] [place] STREP A MOLECULAR (POC)on Procedural Control Valid [facility] Strep A (POCT) Negative Negative [facility] Absolute lymphocyte countOrd ered By: Richie Lai on 03-28-2023 Lymphocytes Auto (Unsp spec) [#/Vol] 1.53 10*3/uL 0.83-4.51 [facility] Automated lymphocyte count a s percentage of total leukocytesOrdered By: Richie Lai on 03-28-2023 Lymphocytes/100 WBC Auto (Unsp spec) 27.3 % 19-41 [facility] Basophil percentageOrdered B y: Richie Abelino on 03-28-2023 Basophils/100 WBC (Bld) 0.5 % 0-1 [facility] Bilirubin [Mass/Vol] 0.40 mg/dL 0.20-1.00 [facility] Comment on above: For patients on eltr ombopag therapy, use of Dimension [place] TBIL is not recommended. Chloride [Moles/Vol] 107 mmol/L 98-107 [facility] Eosinophils/100 WBC (Bld) 2.3 % 0-5 [facility] Glucose [Mass/Vol] 101 mg/dL 74-106 [facility] Comment on above: Fasting Glucose resu lt from 100 to 125 mg/dL suggests IMPAIRED HOMEOSTASIS per A.D.A. criteria. Hemoglobin (Bld) [Mass/Vol] 13.5 g/dL 12.0-15.0 [facility] Monocytes/100 WBC (Bld) 8.7 % 0-10 [facility] Neutrophils (Bld) [#/Vol] 3.4 10*3/uL 2.0-7.7 [facility] Neutrophils/100 WBC (Bld) 61.0 % 47-70 [facility] Potassium [Moles/Vol] 3.9 mmol/L 3.5-5.1 [facility] Protein [Mass/Vol] 7.3 g/dL 6.4-8.2 [facility] Sodium [Moles/Vol] 138 mmol/L 136-145 [facility] WBC (Bld) [#/Vol] 5.6 10*3/uL 4.4-11.0 [facility] Determination of erythrocyte mean corpuscular volume (MCV)Ordered By: Richie Lai on 03-28-2023 MCV (RBC) [Entitic vol] 90.3 fL 81-99 [facility] Erythrocyte distribution wid th ratioOrdered By: Richie Lai on 03-28-2023 Erythrocyte distribution width (RBC) [Ratio] 12.5 % 11.6-14.6 [facility] Erythrocyte distribution wid th standard deviationOrdered By: Richie Lai on 03-28-2023 Erythrocyte distribution width (RBC) [Entitic vol] 41.6 fL 35.1-43.9 [facility] Hematocrit Auto (Bld) [Volum e fraction]Ordered By: Richie Lai on 03-28-2023 Hematocrit (Bld) [Volume fraction] 39.1 % 37-47 [facility] Immature granulocytes/100 WB C Auto (Bld)Ordered By: Richie Lai on 03-28-2023 Immature granulocytes/100 WBC (Bld) 0.200 % 0.0-0.9 [facility] Comment on above: IG% - Immature Granu locytes (promyelocytes, myelocytes and metamyelocytes) > 1% indicates that a LEFT SHIFT is Present. Laboratory - Chemistry and C hemistry - challengeOrdered By: Richie Lai on 03-28-2023 Albumin/Globulin [Mass ratio] 1.2 {ratio} 0.9-2.4 [facility] ALP [Catalytic activity/Vol] 70 U/L 45-117 [facility] ALT [Catalytic activity/Vol] 19 U/L 13-56 [facility] CO2 [Moles/Vol] 27.0 mmol/L 21.0-32.0 [facility] Globulin (S) [Mass/Vol] 3.3 g/dL 2.2-4.2 [facility] Lipase [Catalytic activity/Vol] 47 U/L 13-75 [facility] Comment on above: Please note:LIPASE r evised reference range effective 22. New Lipase methodology. Expected to produce lower values than the previous assay method. NEW Reference Range: 13 - 75 U/L Urea nitrogen/Creatinine [Mass ratio] 21.9 mg/mg 10-20 [facility] Laboratory - Hematology and Cell countsOrdered By: Richie Lai on 03-28-2023 MCH (RBC) [Entitic mass] 31.2 pg 27.0-32.0 [facility] MCHC (RBC) [Mass/Vol] 34.5 g/dL 32-36 [facility] Nucleated RBC/100 WBC (Bld) [Ratio] 0 % 0-5 [facility] Platelets (Bld) [#/Vol] 283 10*3/uL 150-450 [facility] No Panel InformationOrdered By: Richie Lai on 03-28-2023 Estimated Creatinine Clearance Calc 124.27 ml/min [facility] Estimated GFR (MDRD) Amer 124 mL/min >60 [facility] Comment on above: GFR Calc Estimated GFR (MDRD) Non-Af Amer 103 mL/min >60 [facility] Comment on above: Non- GFR Calc Platelet mean volume Panfilo-Ec ker (Bld) [Entitic vol]Ordered By: Richie Lai on 03-28-2023 Platelet mean volume (Bld) [Entitic vol] 10.1 fL 6.2-12.0 [facility] RBC Auto (Bld) [#/Vol]Ordere d By: Richie Lai on 03-28-2023 RBC (Bld) [#/Vol] 4.33 10*6/uL 4.2-5.4 [facility] Serum or plasma calcium henny urement (mass/volume)Ordered By: Richie Lai on 03-28-2023 Calcium [Mass/Vol] 9.6 mg/dL 8.5-10.1 [facility] Serum or plasma creatinine m easurement (mass/volume)Ordered By: Richie Lai on 03-28-2023 Creatinine [Mass/Vol] 0.64 mg/dL 0.55-1.02 [facility] Comment on above: The validity of the calculated GFR & GFRAA in patients over 70 years has not been determined. Clinical correlation is essential. Serum or plasma urea nitroge n measurement (mass/volume)Ordered By: Richie Lai on 03-28-2023 Urea nitrogen [Mass/Vol] 14 mg/dL 7-18 [facility] Thin prep Papanicolaou smear with manual screeningOrdered By: Richie Lai on 03-28-2023 Thin prep Papanicolaou smear with manual screening 4.0 g/dL 3.2-5.0 [facility] Thin prep Papanicolaou smear with manual screening 12 U/L 15-37 [facility] Thin prep Papanicolaou smear with manual screening 4 5-15 [facility] Basophil percentageOrdered B y: Phillip Perez on 12-23-2022 Chloride [Moles/Vol] 108 mmol/L 98-107 [facility] Glucose [Mass/Vol] 101 mg/dL 74-106 [facility] Comment on above: Fasting Glucose resu lt from 100 to 125 mg/dL suggests IMPAIRED HOMEOSTASIS per A.D.A. criteria. Potassium [Moles/Vol] 4.0 mmol/L 3.5-5.1 [facility] Sodium [Moles/Vol] 138 mmol/L 136-145 [facility] WBC (Bld) [#/Vol] 6.1 10*3/uL 4.4-11.0 [facility] Blood erythrocytes count (nu mber/volume)Ordered By: Phillip Perez on 12-23-2022 RBC (Bld) [#/Vol] 4.29 10*6/uL 4.2-5.4 [facility] Blood hemoglobin measurement (mass/volume)Ordered By: Phillip Perez on 12-23-2022 Hemoglobin (Bld) [Mass/Vol] 12.8 g/dL 12.0-15.0 [facility] Blood platelet mean volumeOr dered By: Phillip Perez on 12-23-2022 Platelet mean volume (Bld) [Entitic vol] 10.7 fL 6.2-12.0 [facility] Determination of erythrocyte mean corpuscular volume (MCV)Ordered By: Phillip Perez on 12-23-2022 MCV (RBC) [Entitic vol] 89.0 fL 81-99 [facility] Glucose Glucometer (BldC) [M ass/Vol]Ordered By: Leisa Christiansen on 12-23-2022 Glucose [Mass/Vol] 88 mg/dL 74-106 [facility] Comment on above: MANAGEMENT OF PATIEN T CARE PER NURSING PROTOCOL Hematocrit Auto (Bld) [Volum e fraction]Ordered By: Phillip Perez on 12-23-2022 Hematocrit (Bld) [Volume fraction] 38.2 % 37-47 [facility] Laboratory - Chemistry and C hemistry - challengeOrdered By: Phillip Perez on 12-23-2022 CO2 [Moles/Vol] 25.0 mmol/L 21.0-32.0 [facility] Urea nitrogen/Creatinine [Mass ratio] 24.4 mg/mg 10-20 [facility] Laboratory - Hematology and Cell countsOrdered By: Phillip Perez on 12-23-2022 Erythrocyte distribution width (RBC) [Entitic vol] 42.6 fL 35.1-43.9 [facility] Erythrocyte distribution width (RBC) [Ratio] 13.0 % 11.6-14.6 [facility] MCH (RBC) [Entitic mass] 29.8 pg 27.0-32.0 [facility] MCHC Auto (RBC) [Mass/Vol]Or dered By: Phillip Perez on 12-23-2022 MCHC (RBC) [Mass/Vol] 33.5 g/dL 32-36 [facility] No Panel InformationOrdered By: Phillip Perez on 12-23-2022 Estimated Creatinine Clearance Calc 106.35 ml/min [facility] Estimated GFR (MDRD) Amer 130 mL/min >60 [facility] Comment on above: GFR Calc Estimated GFR (MDRD) Non-Af Amer 108 mL/min >60 [facility] Comment on above: Non- GFR Calc Platelets bldOrdered By: Mary Perez on 12-23-2022 Platelets (Bld) [#/Vol] 292 10*3/uL 150-450 [facility] Serum or plasma calcium henny urement (mass/volume)Ordered By: Phillip Perez on 12-23-2022 Calcium [Mass/Vol] 8.8 mg/dL 8.5-10.1 [facility] Serum or plasma creatinine m easurement (mass/volume)Ordered By: Phillip Perez on 12-23-2022 Creatinine [Mass/Vol] 0.61 mg/dL 0.55-1.02 [facility] Comment on above: The validity of the calculated GFR & GFRAA in patients over 70 years has not been determined. Clinical correlation is essential. Serum or plasma urea nitroge n measurement (mass/volume)Ordered By: Phillip Perez on 12-23-2022 Urea nitrogen [Mass/Vol] 15 mg/dL 7-18 [facility] Thin prep Papanicolaou smear with manual screeningOrdered By: Phillip Perez on 12-23-2022 Thin prep Papanicolaou smear with manual screening 5 5-15 [facility] Whole blood hemoglobin A1c/t otal hemoglobin ratio (mass fraction)Ordered By: Phillip Perez on 12-23-2022 HbA1c (Bld) [Mass fraction] 5.0 % 3.8-5.6 [facility] Comment on above: Normal < 5.7 % Predi abetic 5.7 - 6.4 % Diabetic >or= 6.5 % Please note range changes. DXA-AXIAL SKELETONon 023 [facility] GLUCOSE, BLOOD (POC)on 09-22 Glucose [Mass/Vol] 145 mg/dL Abnormal 74 - 99 mg/dL [facility] MRI Cervical Spine w/oon MRI Cervical [...] arthropathy and uncovertebral joint disease. 0006 Normal [facility] Specialist Absolute lymphocyte counton 06-27-2021 Lymphocytes Auto (Unsp spec) [#/Vol] 1.55 10*3/uL 0.83-4.51 [facility] Work Phone: [phone] Basophil percentageon 2021 Basophils/100 WBC (Bld) 0.4 % 0-1 [facility] Work Phone: [phone] Chloride [Moles/Vol] 105 mmol/L 98-107 [facility] Work Phone: [phone] Eosinophils/100 WBC (Bld) 1.3 % 0-5 [facility] Work Phone: [phone] Glucose [Mass/Vol] 116 mg/dL 74-106 [facility] Work Phone: Comment on above: Fasting Glucose resu lt from 100 to 125 mg/dL suggests IMPAIRED HOMEOSTASIS per A.D.A. criteria. Neutrophils (Bld) [#/Vol] 5.0 10*3/uL 2.0-7.7 [facility] Work Phone: Neutrophils/100 WBC (Bld) 69.6 % 47-70 [facility] Work Phone: Potassium [Moles/Vol] 3.8 mmol/L 3.5-5.1 [facility] Work Phone: Sodium [Moles/Vol] 139 mmol/L 136-145 [facility] Work Phone: WBC (Bld) [#/Vol] 7.2 10*3/uL 4.4-11.0 [facility] Work Phone: Blood erythrocytes count (nu mber/volume)on 06-27-2021 RBC (Bld) [#/Vol] 3.76 10*6/uL 4.2-5.4 [facility] Work Phone: Blood hemoglobin measurement (mass/volume)on 06-27-2021 Hemoglobin (Bld) [Mass/Vol] 11.7 g/dL 12.0-15.0 [facility] Work Phone: Blood lymphocytes/100 leukoc yteson 06-27-2021 Lymphocytes/100 WBC (Bld) 21.6 % 19-41 [facility] Work Phone: Blood monocytes/100 leukocyt eson 06-27-2021 Monocytes/100 WBC (Bld) 6.7 % 0-10 [facility] Work Phone: Blood platelet mean volumeon 06-27-2021 Platelet mean volume (Bld) [Entitic vol] 10.3 fL 6.2-12.0 [facility] Work Phone: Determination of erythrocyte mean corpuscular volume (MCV)on 06-27-2021 MCV (RBC) [Entitic vol] 96.3 fL 81-99 [facility] Work Phone: Hematocrit Auto (Bld) [Volum e fraction]on 06-27-2021 Hematocrit (Bld) [Volume fraction] 36.2 % 37-47 [facility] Work Phone: Laboratory - Chemistry and C hemistry - challengeon 06-27-2021 CO2 [Moles/Vol] 31.0 mmol/L 21.0-32.0 [facility] Work Phone: Urea nitrogen/Creatinine [Mass ratio] 16.5 mg/mg 10-20 [facility] Work Phone: Laboratory - Hematology and Cell countson 06-27-2021 Erythrocyte distribution width (RBC) [Entitic vol] 47.1 fL 35.1-43.9 [facility] Work Phone: Erythrocyte distribution width (RBC) [Ratio] 13.3 % 11.6-14.6 [facility] Work Phone: Immature granulocytes/100 WBC (Bld) 0.400 % 0.0-0.9 [facility] Work Phone: Comment on above: IG% - Immature Granu locytes (promyelocytes, myelocytes and metamyelocytes) > 1% indicates that a LEFT SHIFT is Present. MCH (RBC) [Entitic mass] 31.1 pg 27.0-32.0 [facility] Work Phone: Nucleated RBC/100 WBC (Bld) [Ratio] 0 % 0-5 [facility] Work Phone: MCHC Auto (RBC) [Mass/Vol]on 06-27-2021 MCHC (RBC) [Mass/Vol] 32.3 g/dL 32-36 [facility] Work Phone: No Panel Informationon 06-27 Estimated Creatinine Clearance Calc 77.21 ml/min [facility] Work Phone: Estimated GFR (MDRD) Amer 90 mL/min >60 [facility] Work Phone: Comment on above: GFR Calc Estimated GFR (MDRD) Non-Af Amer 74 mL/min >60 [facility] Work Phone: Comment on above: Non- GFR Calc Platelets bldon 06-27-2021 Platelets (Bld) [#/Vol] 249 10*3/uL 150-450 [facility] Work Phone: Serum or plasma calcium henny urement (mass/volume)on 06-27-2021 Calcium [Mass/Vol] 9.1 mg/dL 8.5-10.1 [facility] Work Phone: Serum or plasma creatinine m easurement (mass/volume)on 06-27-2021 Creatinine [Mass/Vol] 0.85 mg/dL 0.55-1.02 [facility] Work Phone: Comment on above: The validity of the calculated GFR & GFRAA in patients over 70 years has not been determined. Clinical correlation is essential. Serum or plasma urea nitroge n measurement (mass/volume)on 06-27-2021 Urea nitrogen [Mass/Vol] 14 mg/dL 7-18 [facility] Work Phone: Thin prep Papanicolaou smear with manual screeningon 06-27-2021 Thin prep Papanicolaou smear with manual screening 3 5-15 [facility] Work Phone: Absolute lymphocyte counton 05-11-2021 Lymphocytes Auto (Unsp spec) [#/Vol] 2.03 10*3/uL 0.83-4.51 [facility] Work Phone: Basophil percentageon 2021 Basophil percentage 0 SEEN /hpf [facility] Work Phone: Basophils/100 WBC (Bld) 0.4 % 0-1 [facility] Work Phone: Bilirubin [Mass/Vol] 0.20 mg/dL 0.20-1.00 [facility] Work Phone: Comment on above: For patients on eltr ombopag therapy, use of Dimension [place] TBIL is not recommended. Chloride [Moles/Vol] 106 mmol/L 98-107 [facility] Work Phone: [phone] Eosinophils/100 WBC (Bld) 1.8 % 0-5 [facility] Work Phone: Glucose [Mass/Vol] 128 mg/dL 74-106 [facility] Work Phone: Comment on above: Fasting Glucose resu lt greater than or equal to 126 mg/dL suggests DIABETES MELLITUS per A.D.A. criteria. Neutrophils (Bld) [#/Vol] 5.0 10*3/uL 2.0-7.7 [facility] Work Phone: Neutrophils/100 WBC (Bld) 64.7 % 47-70 [facility] Work Phone: Potassium [Moles/Vol] 3.7 mmol/L 3.5-5.1 [facility] Work Phone: Protein [Mass/Vol] 7.0 g/dL 6.4-8.2 [facility] Work Phone: Sodium [Moles/Vol] 139 mmol/L 136-145 [facility] Work Phone: WBC (Bld) [#/Vol] 7.8 10*3/uL 4.4-11.0 [facility] Work Phone: Bilirubin Test strip Ql (U)o n 05-11-2021 Bilirubin Ql (U) Negative Negative [facility] Work Phone: Blood erythrocytes count (nu mber/volume)on 05-11-2021 RBC (Bld) [#/Vol] 4.18 10*6/uL 4.2-5.4 [facility] Work Phone: Blood hemoglobin measurement (mass/volume)on 05-11-2021 Hemoglobin (Bld) [Mass/Vol] 13.0 g/dL 12.0-15.0 [facility] Work Phone: Blood lymphocytes/100 leukoc yteson 05-11-2021 Lymphocytes/100 WBC (Bld) 26.1 % 19-41 [facility] Work Phone: Blood monocytes/100 leukocyt eson 05-11-2021 Monocytes/100 WBC (Bld) 6.9 % 0-10 [facility] Work Phone: Blood platelet mean volumeon 05-11-2021 Platelet mean volume (Bld) [Entitic vol] 10.7 fL 6.2-12.0 [facility] Work Phone: Determination of erythrocyte mean corpuscular volume (MCV)on 05-11-2021 MCV (RBC) [Entitic vol] 91.1 fL 81-99 [facility] Work Phone: Hematocrit Auto (Bld) [Volum e fraction]on 05-11-2021 Hematocrit (Bld) [Volume fraction] 38.1 % 37-47 [facility] Work Phone: Ketones Test strip Ql (U)on 05-11-2021 Ketones Ql (U) Negative Negative [facility] Work Phone: Laboratory - Chemistry and C hemistry - challengeon 05-11-2021 ALP [Catalytic activity/Vol] 109 U/L 45-117 [facility] Work Phone: ALT [Catalytic activity/Vol] 30 U/L 13-56 [facility] Work Phone: CO2 [Moles/Vol] 27.0 mmol/L 21.0-32.0 [facility] Work Phone: Globulin (S) [Mass/Vol] 3.3 g/dL 2.2-4.2 [facility] Work Phone: Lipase [Catalytic activity/Vol] 116 U/L 73-393 [facility] Work Phone: Urea nitrogen/Creatinine [Mass ratio] 18.1 mg/mg 10-20 [facility] Work Phone: Laboratory - Hematology and Cell countson 05-11-2021 Erythrocyte distribution width (RBC) [Entitic vol] 41.6 fL 35.1-43.9 [facility] Work Phone: Erythrocyte distribution width (RBC) [Ratio] 12.6 % 11.6-14.6 [facility] Work Phone: Immature granulocytes/100 WBC (Bld) 0.100 % 0.0-0.9 [facility] Work Phone: Comment on above: IG% - Immature Granu locytes (promyelocytes, myelocytes and metamyelocytes) > 1% indicates that a LEFT SHIFT is Present. MCH (RBC) [Entitic mass] 31.1 pg 27.0-32.0 [facility] Work Phone: Nucleated RBC/100 WBC (Bld) [Ratio] 0 % 0-5 [facility] Work Phone: MCHC Auto (RBC) [Mass/Vol]on 05-11-2021 MCHC (RBC) [Mass/Vol] 34.1 g/dL 32-36 [facility] Work Phone: Mucus LM Ql (Urine sed)on Mucus Ql (Urine sed) 0 SEEN /hpf [facility] Work Phone: Nitrite Test strip Ql (U)on 05-11-2021 Nitrite Ql (U) Negative Negative [facility] Work Phone: No Panel Informationon 05-11 D-Dimer Quantitative (PE/DVT) < 0.27 FEU/ug/m 0.27-0.49 [facility] Work Phone: Comment on above: NORMAL D-Dimer level (<0.50) indicates no DVT or PE. Estimated Creatinine Clearance Calc 96.96 ml/min [facility] Work Phone: Estimated GFR (MDRD) Amer 120 mL/min >60 [facility] Work Phone: Comment on above: GFR Calc Estimated GFR (MDRD) Non-Af Amer 99 mL/min >60 [facility] Work Phone: Comment on above: Non- GFR Calc Platelets bldon 05-11-2021 Platelets (Bld) [#/Vol] 268 10*3/uL 150-450 [facility] Work Phone: Protein Test strip Ql (U)on 05-11-2021 Protein Ql (U) Negative Negative [facility] Work Phone: Serum or plasma albumin henny urement (mass/volume)on 05-11-2021 Albumin [Mass/Vol] 3.7 g/dL 3.2-5.0 [facility] Work Phone: Serum or plasma albumin/glob ulin mass ratioon 05-11-2021 Albumin/Globulin [Mass ratio] 1.1 {ratio} 0.9-2.4 [facility] Work Phone: Serum or plasma calcium henny urement (mass/volume)on 05-11-2021 Calcium [Mass/Vol] 9.2 mg/dL 8.5-10.1 [facility] Work Phone: Serum or plasma creatinine m easurement (mass/volume)on 05-11-2021 Creatinine [Mass/Vol] 0.66 mg/dL 0.55-1.02 [facility] Work Phone: Comment on above: The validity of the calculated GFR & GFRAA in patients over 70 years has not been determined. Clinical correlation is essential. Serum or plasma urea nitroge n measurement (mass/volume)on 05-11-2021 Urea nitrogen [Mass/Vol] 12 mg/dL 7-18 [facility] Work Phone: Squamous epithelial cells de tection in urine sediment by light microscopyon 05-11-2021 Epithelial cells.squamous LM Ql (Urine sed) 0-5 SEEN /hpf [facility] Work Phone: Thin prep Papanicolaou smear with manual screeningon 05-11-2021 Thin prep Papanicolaou smear with manual screening 14 U/L 15-37 [facility] Work Phone: Thin prep Papanicolaou smear with manual screening 6 5-15 [facility] Work Phone: Urine blood detectionon 04-28 RBC Ql (U) Negative Negative [facility] Work Phone: RBC Ql (U) 0 SEEN /hpf [facility] Work Phone: Urine clarityon 05-11-2021 Clarity (U) Clear Clear [facility] Work Phone: Urine color determinationon 05-11-2021 Color (U) Yellow Yellow [facility] Work Phone: Urine glucose detectionon Glucose Ql (U) Normal mg/dl Normal [facility] Work Phone: Urine leukocyte esterase det ection by dipstickon 05-11-2021 Leukocyte esterase Test strip Ql (U) Negative Negative [facility] Work Phone: Urine pHon 05-11-2021 pH (U) 6.0 [pH] [facility] Work Phone: Urine sediment bacteria coun t by microscopy (number/high power field)on 05-11-2021 Bacteria LM.HPF (Urine sed) [#/Area] 0 /[HPF] None Seen [facility] Work Phone: Urine specific gravity measu rementon 05-11-2021 Specific gravity (U) [Rel density] 1.015 [facility] Work Phone: Urobilinogen Auto test strip Ql (U)on 05-11-2021 Urobilinogen Ql (U) Normal mg/dl Normal [facility] Work Phone: Vital Signs Date Time Vital Sign Value Performing Clinician Faci lity 09-18-2024 14:32-0400 Body height 170.[address] Buddy Hui MD Work Phone: [facility] 09-18-2024 14:28-0400 Body mass index (BMI) [Ratio] 34.2 kg/m2 Dr. Buddy Hui MD Work Phone: [facility] 09-18-2024 14:28-0400 Body weight 99.[address] Buddy Hui MD Work Phone: [facility] 09-18-2024 14:28-0400 Diastolic blood pressure 84 mm[Hg] Dr. Buddy Hui MD Work Phone: [facility] 09-18-2024 14:28-0400 Systolic blood pressure 136 mm[Hg] Dr. Buddy Hui MD Work Phone: [facility] 09-05-2024 08:39-0400 Body mass index (BMI) [Ratio] 33.8 kg/m2 Sofy Dean MD, PhD Work Phone: [facility] 09-05-2024 08:39-0400 Body weight 97.9 kg Sofy Dean MD, PhD Work Phone: [facility] 09-05-2024 08:39-0400 Diastolic blood pressure 87 mm[Hg] Sofy Dean MD, PhD Work Phone: [facility] 09-05-2024 08:39-0400 Heart rate 88 /min Sofy Dean MD, PhD Work Phone: [facility] 09-05-2024 08:39-0400 Respiratory rate 16 /min Sofy Dean MD, PhD Work Phone: [facility] 09-05-2024 08:39-0400 SaO2% (BldA) [Mass fraction] 98 % Sofy Dean MD, PhD Work Phone: [facility] 09-05-2024 08:39-0400 Systolic blood pressure 135 mm[Hg] Sofy Dean MD, PhD Work Phone: [facility] 08-06-2024 09:38-0400 Body temperature 97.9 [degF] Dr. Buddy Hui MD Work Phone: [phone] [place] [address] 08-06-2024 09:38-0400 Diastolic blood pressure 97 mm[Hg] Dr. Buddy Hui MD Work Phone: [phone] [place] [address] 08-06-2024 09:38-0400 Heart rate 79 /min Dr. Buddy Hui MD Work Phone: [phone](647)[phone] [place] [address] 08-06-2024 09:38-0400 Respiratory rate 16 /min Dr. Buddy Hui MD Work Phone: [phone] [place] [address] 08-06-2024 09:38-0400 SaO2% (BldA) [Mass fraction] 99 % Dr. Buddy Hui MD Work Phone: [phone] [place] [address] 08-06-2024 09:38-0400 Systolic blood pressure 161 mm[Hg] Dr. Buddy Hui MD Work Phone: [phone] [place] [address] 08-06-2024 08:24-0400 Body height 170.[address] Buddy Hui MD Work Phone: [phone] [place] [address] 08-06-2024 08:24-0400 Body mass index (BMI) [Ratio] 32.4 kg/m2 Dr. Buddy Hui MD Work Phone: [phone] [place] [address] 08-06-2024 08:24-0400 Body weight 93.[address] Buddy Hui MD Work Phone: [phone] [place] [address] 04-30-2024 14:36-0500 Body mass index (BMI) [Ratio] 34.55 kg/m2 Karla Ocampo 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 Work Phone: [phone] [place] [address] 04-30-2024 14:36-0500 Body weight 100.06 kg Karla Ocampo APRN.[employer]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 Work Phone: [phone] [place] [address] 04-30-2024 14:36-0500 Diastolic blood pressure 82 mm[Hg] Karla Podlogar RACE CAR MECHANIC.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 Work Phone: [facility] 04-30-2024 14:36-0500 Heart rate 81 /min Karla Podlogar RACE CAR MECHANIC.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 Work Phone: [facility] 04-30-2024 14:36-0500 Respiratory rate 18 /min Karla Podlogar RACE CAR MECHANIC.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 Work Phone: [facility] 04-30-2024 14:36-0500 SaO2% (BldA) [Mass fraction] 96 % Karla Podlogar RACE CAR MECHANIC.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 Work Phone: [facility] 04-30-2024 14:36-0500 Systolic blood pressure 134 mm[Hg] Karla Podlogar RACE CAR MECHANIC.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 Work Phone: [facility] 04-11-2024 14:25-0500 Body mass index (BMI) [Ratio] 33.99 kg/m2 Karla Podlogar RACE CAR MECHANIC.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 Work Phone: [facility] 04-11-2024 14:25-0500 Body temperature 97.11 [degF] Karla Podlogar RACE CAR MECHANIC.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 Work Phone: [facility] 04-11-2024 14:25-0500 Body weight 98.43 kg Karla Podlogar RACE CAR MECHANIC.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 Work Phone: [facility] 04-11-2024 14:25-0500 Diastolic blood pressure 82 mm[Hg] Karla Podlogar RACE CAR MECHANIC.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 Work Phone: [facility] 04-11-2024 14:25-0500 Heart rate 76 /min Karla Podlogar RACE CAR MECHANIC.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 Work Phone: [facility] 04-11-2024 14:25-0500 Respiratory rate 16 /min Karla Podlogar RACE CAR MECHANIC.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 Work Phone: [facility] 04-11-2024 14:25-0500 Systolic blood pressure 126 mm[Hg] Karla Podlogar RACE CAR MECHANIC.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 Work Phone: [facility] 04-02-2024 09:57-0500 Body mass index (BMI) [Ratio] 33.83 kg/m2 Antonio Hui MD Work Phone: [facility] 04-02-2024 09:57-0500 Body weight 97.98 kg Antonio Hui MD Work Phone: [facility] 04-02-2024 09:57-0500 Diastolic blood pressure 82 mm[Hg] Antonio Hui MD Work Phone: [facility] 04-02-2024 09:57-0500 Heart rate 98 /min Antonio Hui MD Work Phone: [facility] 04-02-2024 09:57-0500 Respiratory rate 16 /min Antonio Hui MD Work Phone: [facility] 04-02-2024 09:57-0500 SaO2% (BldA) [Mass fraction] 94 % Antonio Hui MD Work Phone: [facility] 04-02-2024 09:57-0500 Systolic blood pressure 136 mm[Hg] Antonio Hui MD Work Phone: [facility] 03-12-2024 09:43-0500 Body mass index (BMI) [Ratio] 34.08 kg/m2 Krislyn Aberegg PA Work Phone: [facility] 03-12-2024 09:43-0500 Body temperature 96.91 [degF] Krislyn Aberegg PA Work Phone: [facility] 03-12-2024 09:43-0500 Body weight 98.7 kg Krislyn Aberegg PA Work Phone: [facility] 03-12-2024 09:43-0500 Diastolic blood pressure 86 mm[Hg] Krislyn Aberegg PA Work Phone: [facility] 03-12-2024 09:43-0500 Heart rate 95 /min Krislyn Aberegg PA Work Phone: [facility] 03-12-2024 09:43-0500 Respiratory rate 20 /min Krislyn Aberegg PA Work Phone: [facility] 03-12-2024 09:43-0500 SaO2% (BldA) [Mass fraction] 97 % Krislyn Aberegg PA Work Phone: [facility] 03-12-2024 09:43-0500 Systolic blood pressure 140 mm[Hg] Krislyn Aberegg PA Work Phone: [facility] 02-21-2024 10:54-0500 Body mass index (BMI) [Ratio] 32.98 kg/m2 Lis Roth RACE CAR MECHANIC.[employer]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 Work Phone: [facility] 02-21-2024 10:54-0500 Body temperature 97 [degF] Lis Roth RACE CAR MECHANIC.[employer]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 Work Phone: [facility] 02-21-2024 10:54-0500 Body weight 95.5 kg Lis Roth RACE CAR MECHANIC.[employer]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 Work Phone: [facility] 02-21-2024 10:54-0500 Diastolic blood pressure 92 mm[Hg] Lis Roth RACE CAR MECHANIC.[employer]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 Work Phone: [facility] 02-21-2024 10:54-0500 Heart rate 102 /min Lis Roth APRN.VENT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 Work Phone: [facility] 02-21-2024 10:54-0500 Respiratory rate 18 /min Lis Roth APRN.VENT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 Work Phone: [facility] 02-21-2024 10:54-0500 SaO2% (BldA) [Mass fraction] 100 % Lis Roth RACE CAR MECHANIC.[employer]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 Work Phone: [facility] 02-21-2024 10:54-0500 Systolic blood pressure 146 mm[Hg] Lis Roth APRN.VENT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 Work Phone: [facility] 01-30-2024 12:09-0500 Body mass index (BMI) [Ratio] 34.25 kg/m2 Willian Andrew RACE CAR MECHANIC.[employer]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 Work Phone: [facility] 01-30-2024 12:09-0500 Body temperature 97.5 [degF] Willian Indorf RACE CAR MECHANIC.[employer]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 Work Phone: [facility] 01-30-2024 12:09-0500 Body weight 99.2 kg Willian Indorf RACE CAR MECHANIC.[employer]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 Work Phone: [facility] 01-30-2024 12:09-0500 Diastolic blood pressure 98 mm[Hg] Willian Indorf RACE CAR MECHANIC.[employer]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 Work Phone: [facility] 01-30-2024 12:09-0500 Heart rate 78 /min Willian Indorf RACE CAR MECHANIC.[employer]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 Work Phone: [facility] 01-30-2024 12:09-0500 Respiratory rate 18 /min Willian Indorf RACE CAR MECHANIC.[employer]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 Work Phone: [facility] 01-30-2024 12:09-0500 SaO2% (BldA) [Mass fraction] 98 % Willian Indorf RACE CAR MECHANIC.[employer]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 Work Phone: [facility] 01-30-2024 12:09-0500 Systolic blood pressure 152 mm[Hg] Willian Indorf RACE CAR MECHANIC.[employer]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 Work Phone: [facility] 10-07-2023 08:43-0400 Body mass index (BMI) [Ratio] 33.25 kg/m2 Antonio Hui MD Work Phone: [facility] 10-07-2023 08:43-0400 Body weight 96.3 kg Antonio Hui MD Work Phone: [facility] 10-07-2023 08:43-0400 Diastolic blood pressure 76 mm[Hg] Antonio Hui MD Work Phone: [facility] 10-07-2023 08:43-0400 Heart rate 92 /min Antonio Hui MD Work Phone: [facility] 10-07-2023 08:43-0400 Respiratory rate 16 /min Antonio Hui MD Work Phone: [facility] 10-07-2023 08:43-0400 SaO2% (BldA) [Mass fraction] 98 % Antonio Hui MD Work Phone: [facility] 10-07-2023 08:43-0400 Systolic blood pressure 118 mm[Hg] Antonio Hui MD Work Phone: [facility] 08-09-2023 08:34-0400 Body mass index (BMI) [Ratio] 34.87 kg/m2 Krislyn Aberegg PA Work Phone: [facility] 08-09-2023 08:34-0400 Body temperature 97 [degF] Krislyn Aberegg PA Work Phone: [facility] 08-09-2023 08:34-0400 Body weight 101 kg Krislyn Aberegg PA Work Phone: [facility] 08-09-2023 08:34-0400 Diastolic blood pressure 89 mm[Hg] Krislyn Aberegg PA Work Phone: [facility] 08-09-2023 08:34-0400 Heart rate 85 /min Krislyn Aberegg PA Work Phone: [facility] 08-09-2023 08:34-0400 Respiratory rate 20 /min Krislyn Aberegg PA Work Phone: [facility] 08-09-2023 08:34-0400 SaO2% (BldA) [Mass fraction] 99 % Krislyn Aberegg PA Work Phone: [facility] 08-09-2023 08:34-0400 Systolic blood pressure 135 mm[Hg] Krislyn Aberegg PA Work Phone: [facility] 03-28-2023 11:34-0500 Diastolic blood pressure 99 mm[Hg] [facility] 03-28-2023 11:34-0500 Heart rate 66 /min [facility] 03-28-2023 11:34-0500 Respiratory rate 16 /min [facility] 03-28-2023 11:34-0500 SaO2% (BldA) [Mass fraction] 100 % [facility] 03-28-2023 11:34-0500 Systolic blood pressure 158 mm[Hg] [facility] 03-28-2023 09:43-0500 Body height 170.18 cm [facility] 03-28-2023 09:43-0500 Body mass index (BMI) [Ratio] 35.7 kg/m2 [facility] 03-28-2023 09:43-0500 Body temperature 97.7 [degF] [facility] 03-28-2023 09:43-0500 Body weight 103.44 kg [facility] 12-23-2022 11:37-0400 Body temperature 98 [degF] [facility] 12-23-2022 11:37-0400 Diastolic blood pressure 72 mm[Hg] [facility] 12-23-2022 11:37-0400 Heart rate 80 /min [facility] 12-23-2022 11:37-0400 Respiratory rate 16 /min [facility] 12-23-2022 11:37-0400 SaO2% (BldA) [Mass fraction] 97 % [facility] 12-23-2022 11:37-0400 Systolic blood pressure 124 mm[Hg] [facility] 12-23-2022 07:31-0400 Body height 172.72 cm [facility] 12-23-2022 07:31-0400 Body mass index (BMI) [Ratio] 33.8 kg/m2 [facility] 12-23-2022 07:31-0400 Body weight 101 kg [facility] 09-05-2022 16:51-0400 Body height 172.[address] Buddy Hui Work Phone: [facility] 09-05-2022 16:51-0400 Body mass index (BMI) [Ratio] 34.2 kg/m2 Dr. Buddy Hui Work Phone: [facility] 09-05-2022 16:51-0400 Body temperature 97.8 [degF] Dr. Buddy Hui Work Phone: [facility] 09-05-2022 16:51-0400 Body weight 102.[address] Buddy Hui Work Phone: [facility] 09-05-2022 16:51-0400 Diastolic blood pressure 76 mm[Hg] Dr. Buddy Hui Work Phone: [phone] [place] [address] 09-05-2022 16:51-0400 Heart rate 64 /min Dr. Buddy Hui Work Phone: [phone] [place] [address] 09-05-2022 16:51-0400 Respiratory rate 14 /min Dr. Buddy Hui Work Phone: [phone] [place] [address] 09-05-2022 16:51-0400 SaO2% (BldA) [Mass fraction] 98 % Dr. Buddy Hui Work Phone: [phone] [place] [address] 09-05-2022 16:51-0400 Systolic blood pressure 134 mm[Hg] Dr. Buddy Hui Work Phone: [facility] 08-12-2022 16:23-0400 Body weight 105.96 kg Antonio Hui MD Work Phone: [facility] 08-12-2022 16:23-0400 Diastolic blood pressure 70 mm[Hg] Antonio Hui MD Work Phone: [facility] 08-12-2022 16:23-0400 Heart rate 83 /min Antonio Hui MD Work Phone: [facility] 08-12-2022 16:23-0400 Respiratory rate 16 /min Antonio Hui MD Work Phone: [facility] 08-12-2022 16:23-0400 SaO2% (BldA) [Mass fraction] 96 % Antonio Hui MD Work Phone: [facility] 08-12-2022 16:23-0400 Systolic blood pressure 124 mm[Hg] Antonio Hui MD Work Phone: [facility] 07-13-2022 12:54-0400 Body mass index (BMI) [Ratio] 36.1 kg/m2 Dr. Buddy Hui Work Phone: [facility] 07-13-2022 12:54-0400 Body weight 107.[address] Buddy Hui Work Phone: [facility] 07-13-2022 12:54-0400 Diastolic blood pressure 82 mm[Hg] Dr. Buddy Hui Work Phone: [facility] 07-13-2022 12:54-0400 Systolic blood pressure 142 mm[Hg] Dr. Buddy Hui Work Phone: [facility] 09-22-2021 12:30-0400 Diastolic blood pressure 99 mm[Hg] Jennifer Nelson MD Work Phone: [facility] 09-22-2021 12:30-0400 Heart rate 74 /min Jennifer Nelson MD Work Phone: [facility] 09-22-2021 12:30-0400 Respiratory rate 18 /min Jennifer Nelson MD Work Phone: [facility] 09-22-2021 12:30-0400 SaO2% (BldA) [Mass fraction] 99 % Jennifer Nelson MD Work Phone: [facility] 09-22-2021 12:30-0400 Systolic blood pressure 139 mm[Hg] Jennifer Nelson MD Work Phone: [facility] 09-22-2021 12:13-0400 Body temperature 98.01 [degF] Jennifer Nelson MD Work Phone: [facility] 08-25-2021 09:05-0400 Body height 170.2 cm Franciedi Romef PA-C Work Phone: [facility] 08-25-2021 09:05-0400 Body temperature 97.2 [degF] Franciedi Romef PA-C Work Phone: [facility] 08-25-2021 09:05-0400 Body weight 135.63 kg Francie Eusebia PA-C Work Phone: [facility] 08-25-2021 09:05-0400 Diastolic blood pressure 90 mm[Hg] Francie Eusebia PA-C Work Phone: [facility] 08-25-2021 09:05-0400 Heart rate 104 /min Francie Kerrville PA-C Work Phone: [facility] 08-25-2021 09:05-0400 SaO2% (BldA) [Mass fraction] 96 % Francie Kerrville PA-C Work Phone: [facility] 08-25-2021 09:05-0400 Systolic blood pressure 138 mm[Hg] Francie Eusebia PA-C Work Phone: [facility] 08-04-2021 15:57-0400 Body weight 135.72 kg Antonio Hui MD Work Phone: [facility] 08-04-2021 15:57-0400 Diastolic blood pressure 78 mm[Hg] Antonio Hui MD Work Phone: [facility] 08-04-2021 15:57-0400 Heart rate 79 /min Antonio Hui MD Work Phone: [facility] 08-04-2021 15:57-0400 Respiratory rate 16 /min Antonio Hui MD Work Phone: [facility] 08-04-2021 15:57-0400 SaO2% (BldA) [Mass fraction] 98 % Antonio Hui MD Work Phone: [facility] 08-04-2021 15:57-0400 Systolic blood pressure 136 mm[Hg] Antonio Hui MD Work Phone: [facility] 07-09-2021 13:03-0400 Body height 172.[address] Buddy Hui Work Phone: [facility] Work Phone: 07-09-2021 13:03-0400 Body mass index (BMI) [Ratio] 44.4 kg/m2 Dr. Buddy Hui Work Phone: [facility] Work Phone: 07-09-2021 13:03-0400 Body weight 132.[address] Buddy Hui Work Phone: [facility] Work Phone: 07-09-2021 13:03-0400 Diastolic blood pressure 80 mm[Hg] Dr. Buddy Hui Work Phone: [facility] Work Phone: 07-09-2021 13:03-0400 Systolic blood pressure 128 mm[Hg] Dr. Buddy Hui Work Phone: [facility] Work Phone: 06-27-2021 12:34-0400 Heart rate 76 /min [facility] Work Phone: 06-27-2021 11:57-0400 Diastolic blood pressure 86 mm[Hg] [facility] Work Phone: 06-27-2021 11:57-0400 Respiratory rate 18 /min [facility] Work Phone: 06-27-2021 11:57-0400 SaO2% (BldA) [Mass fraction] 99 % [facility] Work Phone: 06-27-2021 11:57-0400 Systolic blood pressure 152 mm[Hg] [facility] Work Phone: 06-27-2021 10:57-0400 Body height 172.72 cm [facility] Work Phone: 06-27-2021 10:57-0400 Body mass index (BMI) [Ratio] 43.2 kg/m2 [facility] Work Phone: 06-27-2021 10:57-0400 Body temperature 97.5 [degF] [facility] Work Phone: 06-27-2021 10:57-0400 Body weight 129 kg [facility] Work Phone: 06-27-2021 10:41-0400 Body temperature 98.1 [degF] 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 Work Phone: [facility] 06-27-2021 10:41-0400 Body weight 132.81 kg 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 Work Phone: [facility] 06-27-2021 10:41-0400 Diastolic blood pressure 98 mm[Hg] 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 Work Phone: [facility] 06-27-2021 10:41-0400 Heart rate 81 /min 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 Work Phone: [facility] 06-27-2021 10:41-0400 Respiratory rate 20 /min 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[facility] Work Phone: [facility] 06-27-2021 10:41-0400 SaO2% (BldA) [Mass fraction] 99 % 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 Work Phone: [facility] 06-27-2021 10:41-0400 Systolic blood pressure 160 mm[Hg] 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[facility] Work Phone: [facility] 05-11-2021 19:26-0400 Diastolic blood pressure 81 mm[Hg] [facility] Work Phone: 05-11-2021 19:26-0400 Heart rate 72 /min [facility] Work Phone: 05-11-2021 19:26-0400 Respiratory rate 16 /min [facility] Work Phone: 05-11-2021 19:26-0400 SaO2% (BldA) [Mass fraction] 98 % [facility] Work Phone: 05-11-2021 19:26-0400 Systolic blood pressure 134 mm[Hg] [facility] Work Phone: 05-11-2021 15:50-0400 Body mass index (BMI) [Ratio] 45.3 kg/m2 [facility] Work Phone: 05-11-2021 15:50-0400 Body temperature 99.4 [degF] [facility] Work Phone: 05-11-2021 15:50-0400 Body weight 131.2 kg [facility] Work Phone: Encounters Encounter Date Encounter Type Care Provider Facility Start: 10-03-2024 End: 10-03-2024 ambulatory ANTONIO HUI Facility:[facility] Start: 09-18-2024 End: 09-18-2024 Patient encounter procedure Bessy Cernas STORAGE ARCHITECT-C -[facility] Work Phone: Start: 09-18-2024 End: 09-18-2024 Patient encounter status Bessy Cernas STORAGE ARCHITECT-C [facility] Start: 09-18-2024 End: 09-18-[address] Buddy Hui MD Work Phone: -[facility] Start: 09-18-2024 End: 09-18-2024 ambulatory Bessy [place] Facility:[facility] Start: 09-05-2024 End: 09-05-2024 Patient encounter procedure Sofy Dean MD, PhD Work Phone: [facility] Comment on above: Cervical disc disord er at C6-C7 level with radiculopathy (Primary Dx); DDD (degenerative disc disease), cervical; Diabetes mellitus type II (HCC); S/P bilateral breast reduction Start: 09-05-2024 End: 09-05-2024 ambulatory SOFY DEAN Facility:[facility] Start: 08-28-2024 Non-patient / Non-visit Dr. Leisa moss MD -[facility] Work Phone: Start: 08-27-2024 End: 08-30-2024 Chart abstracting None (Historical) Neurology Start: 08-21-2024 End: 08-22-2024 Refill Antonio Hui MD Work Phone: [facility] Comment on above: Refill Request Start: 08-06-2024 End: 08-06-2024 Emergency department patient visit Dr. Buddy Hui MD Work Phone: -Emergency Department Work Phone: Start: 08-02-2024 End: 08-02-2024 Refill Antonio Hui MD Work Phone: [facility] Comment on above: Refill Request Start: 07-09-2024 End: 07-09-2024 Refill Antonio Hui MD Work Phone: [facility] Comment on above: Refill Request Start: 05-08-2024 End: 05-08-2024 Refill Antonio Hui MD Work Phone: [facility] Comment on above: Refill Request Start: 05-02-2024 End: 07-02-2024 Follow-up encounter Eileen Nagy LPN [facility] Start: 04-30-2024 End: 04-30-2024 Patient encounter procedure Karla Ocampo [employer] CAR MECH[employer]IC.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 Work Phone: [facility] Comment on above: Diabetes mellitus ty pe II (HCC) (Primary Dx); Hyperlipidemia, unspecified hyperlipidemia type; Primary hypertension; Gastroesophageal reflux disease, unspecified whether esophagitis present Start: 04-30-2024 End: 04-30-2024 ambulatory ANTONIO HUI Facility:[facility] Start: 04-16-2024 End: 06-16-2024 Follow-up encounter Eileen Nagy LPN [facility] Start: 04-11-2024 End: 04-11-2024 Patient encounter procedure Karla Ocampo RACE CAR MECH[employer]IC.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 Work Phone: [facility] Comment on above: UTI symptoms (Primar y Dx) Start: 04-11-2024 End: 04-11-2024 ambulatory Antonio Hui MD Work Phone: [facility] Comment on above: 03/12 Urgent care vis it UTI Start: 04-02-2024 End: 04-02-2024 ambulatory ANTONIO HUI Facility:[facility] Start: 04-02-2024 End: 04-02-2024 Subsequent hospital visit by physician [facility] Work Phone: Radiology Comment on above: Acute pain of left s jacques [M25.512] Start: 04-02-2024 End: 04-02-2024 Patient encounter procedure Antonio Hui MD Work Phone: [facility] Comment on above: Acute pain of left s jacques (Primary Dx) Start: 04-02-2024 End: 04-02-2024 ambulatory ANTONIO HUI Facility:[facility] Start: 03-13-2024 End: 03-13-2024 Telephone encounter Kamryn GONZALEZ Work Phone: [facility] Comment on above: Results Start: 03-12-2024 End: 03-12-2024 Telephone encounter Kamryn GONZALEZ Work Phone: [facility] Comment on above: Medication Request Start: 03-12-2024 End: 03-12-2024 Patient encounter procedure Kamryn GONZALEZ Work Phone: [facility] Comment on above: Urinary frequency (P rimary Dx) Start: 03-12-2024 End: 03-12-2024 ambulatory ANTONIO HUI Facility:[facility] Start: 02-21-2024 End: 02-21-2024 ambulatory ANTONIO HUI Facility:[facility] Start: 02-21-2024 End: 02-21-2024 Patient encounter procedure Lis Roth APRN.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 Work Phone: [facility] Comment on above: Upper back pain (Jaylin belkys Dx) Start: 02-17-2024 End: 02-17-2024 Emergency department patient visit Buddy Hui Facility:[facility] Start: 02-17-2024 End: 02-17-2024 ambulatory Antonio Hui MD Work Phone: [facility] Comment on above: corticosteroid injec tion side effects Hypertension Start: 01-30-2024 End: 01-30-2024 ambulatory ANTONIO HUI Facility:[facility] Start: 01-30-2024 End: 01-30-2024 Office outpatient visit 15 minutes Willian Andrew APRN.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 Work Phone: [facility] Comment on above: Viral upper respirat ory illness (Primary Dx) Start: 01-16-2024 End: 01-16-2024 Refill Karla Ocampo APRN.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 Work Phone: [facility] Comment on above: Refill Request Start: 10-07-2023 End: 10-07-2023 ambulatory ANTONIO HUI Facility:[facility] Start: 10-07-2023 End: 10-07-2023 ambulatory ANTONIO HUI Facility:[facility] Start: 10-07-2023 End: 10-07-2023 Patient encounter procedure Antonio Hui MD Work Phone: [facility] Comment on above: Annual physical exam [...] Antonio Hui MD Work Phone: Internal Medicine [place] [id number] Start: 08-09-2023 End: 08-09-2023 Patient encounter procedure Kamryn GONZALEZ Work Phone: [facility] Comment on above: Sore throat (Primary Dx) Start: 06-08-2023 ambulatory Antonio Hui MD Work Phone: [facility] Comment on above: Dosage increase for Mounjaro Start: 04-27-2023 ambulatory Antonio Hui MD Work Phone: [facility] Comment on above: Record from last vis it Start: 03-28-2023 End: 03-28-2023 Emergency [facility] Start: 12-23-2022 End: 12-23-2022 Admission to same day surgery center [facility] Start: 12-23-2022 End: 12-23-2022 ambulatory [facility] Work Phone: Start: 11-02-2022 Get Medical Advice Doris Hui MD Work Phone: [facility] Comment on above: Order for bloodwork needed Start: 09-05-2022 End: 09-05-2022 Emergency department patient visit Dr. Buddy Hui Work Phone: [facility] Work Phone: Start: 08-30-2022 Refill Antonio Hui MD Work Phone: [facility] Comment on above: Refill Request Start: 08-20-2022 ambulatory Antonio Hui MD Work Phone: [facility] Comment on above: mounjuro Start: 08-17-2022 Get Medical Advice Doris Hui MD Work Phone: [facility] Comment on above: Mounjaro refill Start: 08-12-2022 End: 08-12-2022 Patient encounter procedure Antonio Hui MD Work Phone: [facility] Comment on above: Diabetes mellitus ty pe II (HCC) (Primary Dx); Macromastia; S/P bilateral breast reduction; Primary hypertension; Hyperlipidemia, unspecified hyperlipidemia type; Obesity, Class III, BMI 40-49.9 (morbid obesity) (HCC); Encounter for hepatitis C screening test for low risk patient Start: 08-11-2022 ambulatory Antonio uHi MD Work Phone: Internal Medicine [facility] Start: 07-13-2022 End: 07-13-[address] Buddy Hui Work Phone: [facility] Work Phone: Start: 07-12-2022 Telephone encounter Buddy Hui MD Work Phone: [facility] [place] Comment on above: Refill Request Start: 07-09-2022 Telephone encounter Buddy Hui MD Work Phone: [facility] [place] Comment on above: Insurance Authorizat ion (Mounjaro) Start: 06-28-2022 ambulatory Karla Podlogar RACE CAR MECHANIC.VENT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 Work Phone: [facility] [place] Comment on above: monjuro Start: 06-21-2022 Telephone encounter Karla Podl ogar RACE CAR MECHANIC.VENT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 Work Phone: [facility] [place] Comment on above: Results Start: 06-17-2022 MC Get Medical Advice Doris Hui MD Work Phone: [facility] [place] Comment on above: Meloxicam refill nee ded meloxicam Start: 05-17-2022 Telephone encounter Buddy Hui MD Work Phone: [facility] [place] Comment on above: Medication Problem Start: 05-12-2022 End: 05-12-2022 Subsequent hospital visit by physician Bone Density [facility] Work Phone: Radiology Comment on above: Encounter for screen ing for osteoporosis [Z13.820] Start: 03-31-2022 ambulatory Karla Podlogar RACE CAR MECHANIC.VENT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 Work Phone: [facility] [place] Comment on above: monitor Start: 03-30-2022 Refill Antonio Hui MD Work Phone: [facility] [place] Comment on above: Refill Request Start: 03-10-2022 Telephone encounter Buddy Hui MD Work Phone: [facility] [place] Comment on above: Insurance Authorizat ion (Moiunjaro ) Start: 03-09-2022 Refill Karla Podlogar RACE CAR MECHANIC.VENT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 Work Phone: [facility] [place] Comment on above: Refill Request PA for Mounjaro Start: 02-16-2022 ambulatory Antonio Hui MD Work Phone: Family [facility] [place] Comment on above: mounjaro Start: 11-20-2021 Refill Antonio Hui MD Work Phone: [facility] Comment on above: Refill Request Start: 09-25-2021 Telephone encounter Jennifer Strickland MD Work Phone: General Surgery Comment on above: Results Start: 09-22-2021 End: 09-22-2021 Subsequent hospital visit by physician Jennifer Nelson MD Work Phone: LD SURGERY Comment on above: Screening for colon cancer [Z12.11] Start: 08-25-2021 Admission to [facility] Antonio Hui MD Work Phone: Family Medicine [...] cancer Start: 08-24-2021 Telephone encounter Karla reid APRN.VENT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 Work Phone: Family [facility] Comment on above: Orders Start: 08-11-2021 ambulatory Antonio Hui MD Work Phone: Family [facility] [place] Comment on above: tingling & numbness down arm into fingers Start: 08-11-2021 Telephone encounter Karla reid APRN.VENT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 Work Phone: Family [facility] Comment on above: Appointment; Patient Update Appointment Start: 08-04-2021 End: 08-04-2021 Patient encounter procedure Antonio Hui MD Work Phone: Family [facility] [place] Comment on above: Diabetes mellitus ty pe II (HCC) (Primary Dx); Primary hypertension; Hyperlipidemia, unspecified hyperlipidemia type; Gastroesophageal reflux disease, unspecified whether esophagitis present; Morbid obesity with BMI of 40.0-44.9, adult (HCC); DDD (degenerative disc disease), lumbar; Screening for colon cancer; Need for vaccination; Labral tear of hip, degenerative Start: 07-09-2021 End: 07-09-[address] Buddy Hui Work Phone: [facility] Start: 06-27-2021 End: 06-27-2021 [facility] Start: 06-27-2021 End: 06-27-2021 Patient encounter procedure Syeda Tenorio RACE CAR MECHANICSEYMOUR Work Phone: [facility] Comment on above: S/P epidural steroid injection (Primary Dx); Neck pain; Dizziness; Intractable vomiting Start: 05-11-2021 End: 05-11-2021 [facility] Date Procedure Procedure Detail Performing Clinician Start: 09-18-2024 Screening mammography Elie Hui MD Work Phone: Start: 04-11-2024 Urnls dip stick/tabl et rgnt auto w/o microscopy Karla Ocampo RACE CAR MECHANIC.VENT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 Work Phone: Start: 03-12-2024 Urnls dip stick/tabl et rgnt auto w/o microscopy Kamryn GONZALEZ Work Phone: Start: 01-30-2024 STREP A MOLECULAR (POC) Carmela Alberts PA-C Work Phone: Start: 08-09-2023 STREP A MOLECULAR (POC) Dion Polk APRN.VENT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 Work Phone: Start: 03-28-2023 US scan of [...] 08-14-2020 Adult depression screening assessment 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 Work Phone: Start: 07-07-2020 Mammography 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 Work Phone: History of reduction of breast S/P bilateral breast reduction Antonio Hui MD Work Phone: History of reduction of breast S/P bilateral breast reduction Sofy Dean MD, PhD Work Phone: Plan of Treatment Date Care Activity Detail Author Start: 09-05-2032 Urine microalbumin profile DTaP,Tdap,Td Vaccine (3 - Td or Tdap) [facility] Start: 09-23-2031 Colonoscopy COLONOSCOPY [facility] Start: 09-23-2031 COLORECTAL CANCER SCREENING COLORECTAL CANCER SCREENING [facility] Start: 09-23-2031 Screening for malign ant neoplasm of colon [facility] Start: 05-25-2025 Glaucoma screening Dilated Retinal E xam [facility] Start: 04-30-2025 Annual PCP Team Repairer [place] jose e Disease Visit Annual PCP Team Chronic Disease Visit [facility] Start: 04-30-2025 Covid-19 Vaccine ( season) Covid-19 Vaccine ( season) [facility] Comment on above: Postponed from 10/29 (Declined at this time) Start: 04-30-2025 Hepatitis B screening Urine Albumin:Creatinine Ratio [facility] Start: 04-30-2025 Pneumococcal Vaccine : 50+ (1 of 2 - PCV) Pneumococcal Vaccine: 50+ (1 of 2 - PCV) [facility] Comment on above: Postponed from 05/20 (Declined at this time) Start: 04-11-2025 Annual PCP Team Repairer [place] jose e Disease Visit Annual PCP Team Chronic Disease Visit [facility] Start: 04-02-2025 Annual PCP Team Repairer [place] jose e Disease Visit Annual PCP Team Chronic Disease Visit [facility] Start: 11-05-2024 End: 11-05-2024 Patient encounter procedure 11/05/2024 2:20 PM EDT Office Visit [facility] [address] [facility], [place] [id number] Antonio Hui MD [address] [place], [place] [id number] 6 month follow up Family [facility] [place] Comment on above: 6 month follow up Start: 10-31-2024 End: 10-31-2024 Patient encounter procedure 10/31/2024 2:20 PM EDT Office Visit [facility] [address] [facility], [place] [id number] Antonio Hui MD [address] [facility], [place] [id number] 6 month follow up [facility] [place] Comment on above: 6 month follow up Start: 10-29-2024 Influenza vaccination C [facility] Start: 10-06-2024 Annual PCP Team Repairer [place] jose e Disease Visit Annual PCP Team Chronic Disease Visit [facility] Start: 10-06-2024 Anxiety Screening Anxiety Screening [facility] Comment on above: Postponed from 05/20 (Declined at this time) Start: 10-06-2024 BP Controlled (<130/80) BP Controlle d (<130/80) [facility] Start: 10-06-2024 Diabetic foot examination Diabetic Foot Exam [facility] Start: 10-03-2024 End: 10-03-2024 Patient encounter procedure [employer] [employer] [employer] 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 [address] [place] [address] Sofy Dean MD, PhD [address] [facility] [address] [facility] [place] [address] cervical radiculopathy, stenosis at C5-C6 [facility] Comment on above: cervical radiculopat hy, stenosis at C5-C6 Start: 08-27-2024 Influenza vaccination Influenza Vacc ine (#1) [facility] Comment on above: Postponed from 10/29 (Declined at this time) Start: 08-06-2024 [facility] Start: 04-30-2024 End: 07-30-2024 Hemoglobin A1c in Blood HEMOGLOBIN A1C Lab Routine Diabetes mellitus type II (HCC) Expected: 04/30/2024, Expires: 07/30/2024 [facility] Comment on above: Expected: 04/30/2024 , Expires: 07/30/2024 Start: 04-30-2024 End: 07-30-2024 Lipid 1996 panel - Serum or Plasma LIPID PANEL BASIC Lab Routine Hyperlipidemia, unspecified hyperlipidemia type Expected: 04/30/2024, Expires: 07/30/2024 [facility] Work Phone: Comment on above: Expected: 04/30/2024 , Expires: 07/30/2024 Start: 04-30-2024 End: 07-30-2024 Microalbumin/Creatinine [Mass Ratio] in Urine [facility] Comment on above: Expected: 04/30/2024 , Expires: 07/30/2024 Start: 04-16-2024 End: 04-16-2024 Patient encounter procedure 04/16/2024 3:00 PM EST Office Visit [facility] [place] [address] [place] [id number] PodlogarKarla APRN.VENT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 [address] [facility] [place] [id number] 6 month follow up [facility] Comment on above: 6 month follow up Start: 04-09-2024 End: 04-09-2024 Patient encounter procedure 04/09/2024 3:00 PM EST Office Visit [facility] [place] [address] [place] [id number] Karla Ocampo APRN.VENT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 [address] [place] [id number] 6 month follow up [facility] Comment on above: 6 month follow up Start: 04-08-2024 Hemoglobin A1c measurement HbA1C [facility] Start: 02-15-2024 Annual PCP Team Repairer [place] jose e Disease Visit Annual PCP Team Chronic Disease Visit [facility] Start: 02-15-2024 Glaucoma screening Dilated Retinal E xam [facility] Comment on above: Postponed from 12/25 (Declined at this time) Start: 02-15-2024 Hepatitis B screening Urine Albumin:Creatinine Ratio [facility] Start: 02-15-2024 Hepatitis B surface antibody level LDL Cholesterol [facility] Start: 02-15-2024 Pneumococcal vaccination Pneum ococcal Vaccine (1 of 2 - PCV) [facility] Comment on above: Postponed from 05/20 (Declined at this time) Start: 10-30-2023 Covid-19 Vaccine ( season) Covid-19 Vaccine ( season) [facility] Start: 10-30-2023 Influenza vaccination C [facility] Start: 10-07-2023 End: 10-07-2023 Patient encounter procedure 10/07/2023 9:00 AM EDT Office Visit [facility] [place] [address] [place] [id number] Antonio Hui MD [address] [facility] [place] [id number] annual physical [facility] Comment on above: annual physical Start: 08-30-2023 End: 08-30-2023 Patient encounter procedure 08/30/2023 4:40 PM EDT Office Visit [facility] [place] [address] [place] [address] Antonio Hui MD [address] [place], [place] [phone] annual physical [facility] [place] Comment on above: annual physical Start: 08-28-2023 Influenza vaccination Influenza Vacc ine (#1) [facility] Comment on above: Postponed from 10/29 (Declined at this time) Start: 08-13-2023 3 comp foot exam completed DIABETIC FOOT EXAM [facility] Start: 08-13-2023 ANNUAL PCP TEAM LARGE SHEETFED PRESS OPERATOR JOSE E DISEASE VISIT ANNUAL PCP TEAM CHRONIC DISEASE VISIT [facility] Start: 08-13-2023 BP CONTROLLED (<130/80) BP CONTROLLE D (<130/80) [facility] Start: 08-13-2023 Diabetic foot examination Diabetic Foot Exam [facility] Start: 05-10-2023 Hemoglobin A1c measurement HbA1C [facility] Start: 05-10-2023 Hemoglobin A1c/Hemoglobin.total in Blood HbA1C [facility] Start: 03-28-2023 [facility] Start: 03-16-2023 BP CONTROLLED (<130/80) BP CONTROLLE D (<130/80) [facility] Start: 02-28-2023 Behavioral Health Screening Behavioral Health Screening [facility] Start: 02-28-2023 Depression Assessment Depression Ass essment [facility] Start: 02-11-2023 ANNUAL PCP TEAM LARGE SHEETFED PRESS OPERATOR JOSE E DISEASE VISIT ANNUAL PCP TEAM CHRONIC DISEASE VISIT [facility] Start: 02-11-2023 PNEUMOCOCCAL (1 - PCV) PNEUMOCOCCAL (1 - PCV) [facility] Comment on above: Postponed from 05/20 (Declined at this time) Start: 02-11-2023 Pneumococcal vaccination Pneum ococcal Vaccine (1 - PCV) [facility] Comment on above: Postponed from 05/20 (Declined at this time) Start: 02-04-2023 Hepatitis B surface antibody level LDL CHOLESTEROL [facility] Start: 12-23-2022 Anes extraperitoneal lwr abd w/urinary tract nos ANESTH SURGERY OF ABDOMEN [facility] Start: 12-23-2022 Sling operation stre ss incontinence REPAIR BLADDER DEFECT [facility] Start: 12-23-2022 Patient discharge [facility] Start: 11-05-2022 End: 01-05-2023 ALBUMIN/CREAT RATIO RND UR ALBUMIN/CREAT RATIO RND UR Lab Routine Diabetes mellitus type II (HCC) Expected: 11/05/2022, Expires: 01/05/2023 [facility] Work Phone: Comment on above: Expected: 11/05/2022 , Expires: 01/05/2023 Start: 11-05-2022 End: 01-05-2023 Comprehensive metabolic 2000 panel - Serum or Plasma COMP METABOLIC PANEL Lab Routine Diabetes mellitus type II (HCC) Expected: 11/05/2022, Expires: 01/05/2023 [facility] Work Phone: Comment on above: Expected: 11/05/2022 , Expires: 01/05/2023 Start: 11-05-2022 End: 01-05-2023 Hemoglobin A1c in Blood HGB A1C Lab Routine Diabetes mellitus type II (HCC) Expected: 11/05/2022, Expires: 01/05/2023 [facility] Work Phone: Comment on above: Expected: 11/05/2022 , Expires: 01/05/2023 Start: 11-05-2022 End: 01-05-2023 Hepatitis C virus Ab [Presence] in Serum HEPATITIS C ANTIBODY IA WITH CONFIRMATION Lab Routine Encounter for hepatitis C screening test for low risk patient Expected: 11/05/2022, Expires: 01/05/2023 [facility] Work Phone: Comment on above: Expected: 11/05/2022 , Expires: 01/05/2023 Start: 10-29-2022 Covid-19 Vaccine ( season) Covid-19 Vaccine () [facility] Start: 10-29-2022 Influenza vaccination C [facility] Start: 10-20-2022 Urine microalbumin profile DTAP,TDAP,TD (2 - Td or Tdap) [facility] Start: 09-05-2022 Simple repair scalp/neck/ax/genit/trun k 2.5cm/< RPR S/N/AX/GEN/TRNK 2.5CM/< [place] [facility] Start: 08-12-2022 End: 10-12-2022 ALBUMIN/CREAT RATIO RND UR ALBUMIN/CREAT RATIO RND UR Lab Routine Diabetes mellitus type II (HCC) Expected: 08/12/2022, Expires: 10/12/2022 [facility] Work Phone: Comment on above: Expected: 08/12/2022 , Expires: 10/12/2022 Start: 08-12-2022 End: 10-12-2022 Comprehensive metabolic 2000 panel - Serum or Plasma COMP METABOLIC PANEL Lab Routine Diabetes mellitus type II (HCC) Expected: 08/12/2022, Expires: 10/12/2022 [facility] Work Phone: Comment on above: Expected: 08/12/2022 , Expires: 10/12/2022 Start: 08-12-2022 End: 10-12-2022 Hemoglobin A1c in Blood HGB A1C Lab Routine Diabetes mellitus type II (HCC) Expected: 08/12/2022, Expires: 10/12/2022 [facility] Work Phone: Comment on above: Expected: 08/12/2022 , Expires: 10/12/2022 Start: 08-12-2022 End: 10-12-2022 Hepatitis C virus Ab [Presence] in Serum HEP C AB IA W/CONF SCRN Lab Routine Encounter for hepatitis C screening test for low risk patient Expected: 08/12/2022, Expires: 10/12/2022 [facility] Work Phone: Comment on above: Expected: 08/12/2022 , Expires: 10/12/2022 Start: 08-05-2022 Hemoglobin A1c/Hemoglobin.total in Blood HBA1C [facility] Start: 08-04-2022 ANNUAL PCP TEAM LARGE SHEETFED PRESS OPERATOR JOSE E DISEASE VISIT ANNUAL PCP TEAM CHRONIC DISEASE VISIT [facility] Start: 08-03-2022 Hepatitis B surface antibody level LDL CHOLESTEROL [facility] Start: 07-13-2022 Patient referral [facility] Work Phone: Start: 07-09-2022 Mammography [facility] Start: 07-09-2022 Screening for malign ant neoplasm of breast Mammogram Screening [facility] Start: 02-28-2022 DEPRESSION ASSESSMENT DEPRESSION ASS ESSMENT [facility] Start: 02-03-2022 3 comp foot exam completed DIABETIC FOOT EXAM [facility] Start: 02-03-2022 ANNUAL PCP TEAM LARGE SHEETFED PRESS OPERATOR JOSE E DISEASE VISIT ANNUAL PCP TEAM CHRONIC DISEASE VISIT [facility] Start: 02-03-2022 ONE PNEUMOVAX PRIOR TO AGE 65 ONE PNEUMOVAX PRIOR TO AGE 65 [facility] Comment on above: Postponed from 05/20 (Declined at this time) Start: 02-03-2022 PNEUMOCOCCAL (1 - PCV) PNEUMOCOCCAL (1 - PCV) [facility] Comment on above: Postponed from 05/20 (Declined at this time) Start: 02-02-2022 Hemoglobin A1c/Hemoglobin.total in Blood HBA1C [facility] Start: 01-31-2022 Hepatitis B screening URINE ALBUMIN:CREATININE RATIO [facility] Start: 01-31-2022 Hepatitis B surface antibody level LDL CHOLESTEROL [facility] Start: 01-05-2022 HEPATITIS B (3 of 3 - Risk 3-dose series) HEPATITIS B (3 of 3 - Risk 3-dose series) [facility] Start: 12-25-2021 COVID-19 VACCINE (4 - Booster for Moderna series) COVID-19 VACCINE (4 - Booster for Moderna series) [facility] Start: 12-25-2021 Glaucoma screening Dilated Retinal E xam [facility] Start: 12-25-2021 Hepatitis C antibody , confirmatory test DILATED RETINAL EXAM [facility] Start: 11-24-2021 HEPATITIS B (3 of 3 - 3-dose series) HEPATITIS B (3 of 3 - 3-dose series) [facility] Start: 10-29-2021 [facility] Start: 10-20-2021 COVID-19 VACCINE (4 - Booster for Moderna series) COVID-19 VACCINE (4 - Booster for Moderna series) [facility] Start: 09-01-2021 HEPATITIS B (2 of 3 - Risk 3-dose series) HEPATITIS B (2 of 3 - Risk 3-dose series) [facility] Start: 08-14-2021 Adult depression screening assessment DEPRESSION SCREENING [facility] Start: 08-01-2021 Hemoglobin A1c/Hemoglobin.total in Blood HBA1C [facility] Start: 07-07-2021 Mammography MAMMOGRAM [facility] Start: 05-16-2021 COVID-19 VACCINE (3 - Booster for Moderna series) COVID-19 VACCINE (3 - Booster for Moderna series) [facility] Start: 2018 SHINGRIX VACCINE (1 of 2) SHINGRIX VACCINE (1 of 2) [facility] Start: 2013 COLOGUARD (FIT-DNA) COLOGUARD (FIT-D NA) [facility] Start: 2013 Colonoscopy COLONOSCOPY [facility] Start: 2013 COLORECTAL CANCER SCREENING COLORECTAL CANCER SCREENING [facility] Start: [address] COLONOGRAPHY [facility] Start: 2013 FECAL OCCULT BLOOD FECAL OCCULT BLOO D [facility] Start: 2013 Screening for malign ant neoplasm of colon [facility] Start: 2013 SIGMOIDOSCOPY SIGMOIDOSCOPY [facility] Start: 05-21-1987 Pneumococcal Vaccine : 50+ (1 of 2 - PCV) Pneumococcal Vaccine: 50+ (1 of 2 - PCV) [facility] Start: 1986 BP CONTROLLED (<130/80) BP CONTROLLE D (<130/80) [facility] Start: 1986 Depression Screening Depression Scre ening [facility] Start: 1986 HEPATITIS C SCREENING HEPATITIS C [facility] Start: 1986 Hepatitis C screening Hepatitis C [facility] Start: 1986 HIV SCREENING HIV SCREENING [facility] Start: 1986 HIV screening HIV Screening [facility] Bacteria identified in Urine by Culture BACTERIAL CULTURE, URINE Microbiology Routine Urinary frequency Ordered: 03/12/2024 [facility] Work Phone: Comment on above: Ordered: 03/12/2024 Bacteria identified in Urine by Culture BACTERIAL CULTURE, URINE Microbiology Routine UTI symptoms 04/11/2024 2:55 PM EST [facility] Work Phone: End: 09-15-2024 DBT Breast - bilateral screening CHATO SCREENING W JAYMIE Radiology Routine Encounter for screening mammogram for breast cancer 1 Occurrences starting 08/17/2023 until 09/15/2024 [facility] Work Phone: Comment on above: 1 Occurrences starti ng 08/17/2023 until 09/15/2024 Hepb vaccine adult 3 dose schedule for im use HEPATITIS B VACCINE, ADULT AGE 20+, IM Immunization/Injection Routine Need for vaccination Ordered: 08/24/2021 [facility] Work Phone: Comment on above: Ordered: 08/24/2021 End: 09-10-2023 CHATO SCREENING CHATO SCREENING Radiology Routine Encounter for screening mammogram for breast cancer 1 Occurrences starting 08/11/2022 until 09/10/2023 [facility] Work Phone: Comment on above: 1 Occurrences starti ng 08/11/2022 until 09/10/2023 Patient Education [facility] Work Phone: Patient referral [facility] Work Phone: End: 09-22-2021 Screening colonoscopy COLONOSCOPY SCREENING Endoscopy Routine Screening for colon cancer 1 Occurrences starting 09/22/2021 until 09/22/2021 [facility] Work Phone: Comment on above: 1 Occurrences starti ng 09/22/2021 until 09/22/2021 End: 08-25-2022 Screening colonoscopy COLONOSCOPY SCREENING Endoscopy Routine Screening for colon cancer 1 Occurrences starting 08/25/2021 until 08/25/2022 [facility] Work Phone: Comment on above: 1 Occurrences starti ng 08/25/2021 until 08/25/2022 SURGICAL PATHOLOGY [facility] Work Phone: Comment on above: Release Upon Clarencein g for 1 Occurrences starting 09/22/2021 End: 10-05-2025 XR Cervical spine 2 or 3 views and (Views W flexion and W extension) XR CERVICAL 2V FLEX/EXT Radiology Routine DDD (degenerative disc disease), cervical 1 Occurrences starting 09/05/2024 until 10/05/2025 [facility] Work Phone: Comment on above: 1 Occurrences starti ng 09/05/2024 until 10/05/2025 End: 05-02-2025 XR Shoulder - left 3 Views XR SHOULDER GENERAL 3V OR MORE AP/TRUE AP/OTHER LEFT Radiology Routine Acute pain of left shoulder 1 Occurrences starting 04/02/2024 until 05/02/2025 [facility] Work Phone: Comment on above: 1 Occurrences starti ng 04/02/2024 until 05/02/2025 XR Shoulder - left 3 Views XR SHOULDER GENERAL 3V OR MORE AP/TRUE AP/OTHER LEFT Radiology Routine Acute pain of left shoulder 04/02/2024 11:06 AM EST [facility] Immunizations Immunization Date Immunization Notes Care Provider Fa [facility] 02-14-2023 COVID-19 vaccine, ag e 12+ yr, 2022- season (PFIZER-BIONTECH) Antonio Hui MD Work Phone: [facility] 09-05-2022 tetanus toxoid, reduced diphtheria toxoid, and acellular pertussis vaccine, adsorbed Dr. Buddy Hui Work Phone: [facility] 02-11-2022 COVID-19 booster vaccine, age 12+ yr, bivalent (PFIZER-BIONTECH) Antonio Hui MD Work Phone: [facility] 02-11-2022 hepatitis B vaccine, adult dosage Antonio Hui MD Work Phone: [facility] 02-11-2022 influenza, injectabl e, quadrivalent, contains preservative Antonio Hui MD Work Phone: [facility] 02-11-2022 influenza virus vaccine, unspecified formulation Bone Wstr Work Phone: [facility] 10-30-2021 zoster vaccine recombinant Antonio Hui MD Work Phone: [facility] Work Phone: 09-04-2021 hepatitis B vaccine, adult dosage Jennifer Nelson MD Work Phone: [facility] Work Phone: 09-04-2021 hepatitis B vaccine, unspecified formulation Karla Ocampo RACE CAR MECHANIC.VENT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 Work Phone: [facility] 08-25-2021 zoster vaccine recombinant Antonio Hui MD Work Phone: [facility] Work Phone: 08-04-2021 hepatitis B vaccine, adult dosage Antonio Hui MD Work Phone: [facility] 08-04-2021 hepatitis B vaccine, unspecified formulation Antonio Hui MD Work Phone: [facility] 10-20-2012 tetanus toxoid, reduced diphtheria toxoid, and acellular pertussis vaccine, adsorbed 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 Work Phone: [facility] Work Phone: Payers Date Payer Category Payer Self-pay [id number] 2022 [employer] Blue [employer] BLUE CARD PPO OOS [id number] 2022 Unknown [id number] 2018 Unknown LEI LEWIS ACCE SS PPO [id number] 2018-Present [phone] [place] [address] PPO [id number] 2018 Unknown [id number] 2011 Unknown SELF PAY INSURANCE [id number] Unknown [id number] Unknown [id number] Unknown [id number] Unknown [id number] Social History Date Type Detail Facility Start: 06-27-2021 End: 03-28-2023 Tobacco smoking status [facility] Unknown if ever smoked [facility] Start: 10-23-2018 Occasional [facility] Start: 02-24-2014 None [facility] Start: 10-23-2018 Spouse/ Signif icant Other [facility] Start: 04-28-2020 Non-smoker [facility] Start: 1970 Sex Assigned At Female C [facility] Start: 10-20-2012 End: 08-06-2024 Tobacco smoking status ORIS Ex-smoker [facility] Work Phone: Start: 04-29-2001 End: 04-30-2011 History of tobacco use Current smoker [facility] Work Phone: Start: 04-29-2001 End: 04-30-2011 History of tobacco use Cigarette Smoker [facility] Work Phone: Start: 10-20-2012 End: 08-12-2022 Cigarettes smoked current (pack per day) - Reported 0.5 [facility] Start: 10-20-2012 End: 01-30-2024 Tobacco use and exposure Smokeless tobacco non-user [facility] Work Phone: Start: 06-27-2021 End: 08-09-2023 Alcohol intake Current drinker of alcohol (finding) [facility] Start: 10-17-2019 End: 02-04-2022 History SDOH Alcohol Frequency 3 [facility] Start: 10-17-2019 End: 02-04-2022 History SDOH Alcohol Std Drinks 2 [facility] Start: 10-06-2011 History SDOH Alcohol Comment occasional [facility] Start: 10-17-2019 End: 02-04-2022 History SDOH Social Connections Phone 5 [facility] Start: 01-09-2020 End: 02-04-2022 History SDOH Social Connections Get Together 98 [facility] Start: 10-17-2019 End: 02-04-2022 History SDOH Social Connections Meetings 1 [facility] Start: 10-17-2019 Education 17 [facility] Start: 07-25-2021 End: 09-22-2021 Exposure to SARS-CoV-2 (event) Not sure [facility] Start: 02-04-2022 History SDOH Social Connections Living 8 [facility] Start: 02-04-2022 End: 08-12-2022 Social connection and isolation panel [facility] How often do you att end pentecostalism or anabaptism services? Patient refused [facility] Are you now , , , , never or living with a partner? Living with partner [facility] How often to you hav e a drink containing alcohol? 2-4 times a month [facility] How many standard drinks containing alcohol do you have on a typical day? 1 or 2 [facility] How often do you hav e 6 or more drinks on 1 occasion? Never [facility] Do you feel stress - tense, restless, nervous, or anxious, or unable to sleep at night because your mind is troubled all the time - these days [OSQ] Not at all [facility] (I/We) worried wheth er (my/our) food would run out before (I/we) got money to buy more. Never true [facility] In the past 12 month s, was there a time when you were not able to pay the mortgage or rent on time? No [facility] Start: 01-09-2020 Gender identity Identifies as female gender (finding) [facility] Start: 01-09-2020 Sexual orientation Heterosexual (samir stephen) [facility] How often do you hav e 6 or more drinks on 1 occasion? Less than monthly [facility] Start: 10-07-2023 End: 09-05-2024 Alcohol intake Ex-drinker (finding) [facility] Do you belong to any clubs or organizations such as pentecostalism groups, unions, fraternal or athletic groups, or school groups? Yes [facility] Are you now , , , , never or living with a partner? [facility] NEGATED: Highlighted row [facility] Medical Equipment Procedure Code Equipment Code Equipment Origin al Text Equipment Identifier Dates Check blood suga r twice a day and as needed [id number] Start: 03-31-2022 End: 04-14-2022 Comment on above: Check blood sugar tw ice a day and as needed ([id number]) ()[id number] [facility] [phone] [facility] Start: 12-23-2022 Goals Date Patient Goal Desired Activity /State Functional Status Date Assessment Result Facility 10-22-2013 Are you deaf, or do you have serious difficulty hearing No 10/22/2013 3:01 PM EDT Sharita Bills Ma [facility] 10-22-2013 Are you blind, or do you have serious difficulty seeing, even when wearing glasses No 10/22/2013 3:01 PM EDSharita Crane Ma [facility] 10-22-2013 Do you have serious difficulty walking or climbing stairs No 10/22/2013 3:01 PM Sharita Hendrickson Ma [facility] 10-22-2013 Do you have difficul ty dressing or bathing No 10/22/2013 3:01 PM ABRANT Sharita Bills Ma [facility] 10-22-2013 Because of a physica l, mental, or emotional condition, do you have difficulty doing errands alone such as visiting a physician's office or shopping No 10/22/2013 3:01 PM EDT Sharita Bills Ma [facility] Mental Status Date Assessment Result Facility 12-23-2022 Cognitive function Level Of Cons ciousness Awake;Alert;Appropriate [facility] Work Phone: 06-27-2021 Cognitive function Level Of Cons ciousness Awake;Alert;Appropriate;Fol lows Commands [facility] Work Phone: 10-22-2013 Because of a physica l, mental, or emotional condition, do you have serious difficulty concentrating, remembering, or making decisions No 10/22/2013 3:01 PM EDT Sharita Bills Ma No [facility] Clinical Notes 12-27-2018 to 10-03-2024 Note Date & Type Note Facility 10-03-2024 Note HNO ID: [id number] Author: SOFY DEAN MD, PhD Service: ? Author Type: Physician Type: Progress Notes Filed: 10/03/2024 09:44 Note Text: NEUROSURGERY FOLLOW UP OFFICE NOTE Sofy Dean MD, PhD Date of visit: October 03, 2024 Patient Name: Ms.Robin Elan Hoyt Date of : 1970 Current Age: [age] year old Sex: female MRN/E# [id number] Last Office Visit: 09/05/2024 Chief Complaint: Patient [...] who is referred by Dr. Walters from [facility] for neurosurgical evaluation. Fantasma Hoyt is [...] Fantasma was evaluated by Dr. Alberto at [facility], who referred her to neurosurgery. She was currently taking Mobic for a left hip problem, which affects her gait. 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 [facility] 10-03-2024 Note HNO ID: [id number] Author: RASHEL HANKINS RT(R) Service: Radiology Author [...] PATIENT PRESENTS WITH AN IMPLANTABLE OR ATTACHED TUMBLING BARREL PAINTER: No RADIOLOGY DEPARTMENT: General X-ray: Exam(s) Completed: Spine X-Ray(s): Cervical AP / LAT / FLEX-EXT PERIPHERAL IV DATA: Not applicable SIGNED BY: RT Bull(R) October 03, 2024 9:01 AM [facility] 09-18-2024 Evaluation note Diagnosis Onset Date Resolution Encounter for routine gynecological examination noneactive September 18, 2024 2:24pm [facility] Work Phone: [phone]) 234-493807-09-2025 History of Present illness Narrative* Sofy Dean MD, PhD - 09/05/2024 9:00 AM EDT Images from the original note were not included. NEUROSURGERY CONSULT NOTE Sofy Dean MD, PhD Date of visit: September 05, 2024 Patient Name: Ms.Robin Elan Hoyt Date of : 1970 Current Age: [age] year old Sex: female MRN/E# [id number] Chief Complaint: No chief complaint on file. [...] who is referred by Dr. Walters from [facility] for neurosurgical evaluation. Fantasma Hoyt is [...] Fantasma was evaluated by Dr. Alberto at [facility], who referred her to neurosurgery. Sheis currently taking Mobic for a left hip problem, which affects her gait. 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 30 tablet 0 glucosamine/msm/chondroit sulf (GLUCOSAMINE [id number] ORAL) cyclobenzaprine (FLEXERIL) 10 mg tablet Take [...] 5 5 Wrist extension 5 5 Finger flexion/wildlife rehabilitator 5 5 Reflexes Deep tendon reflexes graded [...] PhD This note was partially generated using Recensus voice recognition system, and there may be some incorrect words, spellings, and punctuation that were not noted in checking the note before saving. documented in this encounterOhio[facility]07-09-2025 NoteHNO ID: [id number] Author: SOFY DEAN MD, PhD Service: ? Author Type: Physician Type: Progress Notes Filed: 09/05/2024 09:23 Note Text: NEUROSURGERY CONSULT NOTE Sofy Dean MD, PhD Date of visit: September 05, 2024 Patient Name: Ms.Robin Elan Hoyt Date of : 1970 Current Age: [age] year old Sex: female MRN/E# [id number] Chief Complaint: No chief complaint on file. [...] who is referred by Dr. Walters from [facility] for neurosurgical evaluation. Fantasma Hoyt is [...] Fantasma was evaluated by Dr. Alberto at [facility], who referred her to neurosurgery. She is currently taking Mobic for a left hip problem, which affects her gait. 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 Author Type: Physician Development Associate Type: Progress Notes Filed: 08/30/2024 10:12 Note [...] patient imaging is available for review [facility] History of Present illness Narrative* Ammy [...] Hoyt Are you being referred by a [facility] for Spine Health Provider or Pain Management Provider at [facility]? No If answer is YES please [...] the facility where the MRI/CT/myelogram was completed: [facility] Address: [address] [place] [address] [address], [place] [address] MRI/CT/myelogram viewable in Epic: No If not, please provide [phone] to fax in imaging reports for review. [...] where the surgery was completed: Additional Comments [phone] (Home Phone) documented in this encounterOhiohealth [facility]06-30-2025 NoteHNO ID: [id number] Author: ?, ?, ? Service: ? Author Type: ? Type: Progress Notes Filed: 08/30/2024 10:12 Note Text: Patient name: Fantasma Hoyt Are you being referred by a [facility] for Spine Health Provider or Pain Management Provider at [facility]? No If answer is YES please [...] the facility where the MRI/CT/myelogram was completed: [facility] Address: [address] [place] [address] [address], [place] [address] MRI/CT/myelogram viewable in Epic: No If not, please provide [phone] to fax in imaging reports for review. [...] where the surgery was completed: Additional Comments [phone] (Home Phone)[facility] Telephone encounter Note* Telephone Encounter - Agustina [...] Sloan LPN August 21, 2024 4:30 PM [facility]06-24-2025 Miscellaneous Notes* Telephone Encounter - Agustina [...] 21, 2024 4:30 PM documented in this encounterOhiohealth [facility]06-09-2025 Discharge summary [facility] Medical Records Department [address] [place] [id number] Emergency Department Summary 08/06/24 MR#: [id number] Acct: [id number] Name: FANTASMA RHOADES Rep #:[id number] : [...] intact Psych: Cooperative, appropriate mood and affect [facility] Medical History JENNIFFER (stress urinary incontinence, female) [...] 81 mg PO DAILY@0800 Patient Comments: Heart [employer] cholecalciferol (vitamin D3) 1,000 UNIT capsule 1,000 [...] gentle stretching. Follow-up with PCP. Print Language: Belarusian Disposition Disposition: Home, Self Care What to do if you have Problems For any increased pain, shortness of breath, bleeding, nausea or vomiting, chestpain, or any unexpected problems, contact your Primary Care Provider. Call [facility] ([phone]) or report tothe closest Emergency Room. Call 911 if necessary. 08/06/24 0912 Cosigner Signature (if applicable): CC: Dr. Buddy Hui MD ~ Signed [facility]06-05-2025 Telephone encounter Note* Telephone Encounter - Francie [...] Marshall RN August 02, 2024 1:34 PM [facility]06-05-2025 Miscellaneous Notes* Telephone Encounter - Francie [...] 02, 2024 1:34 PM documented in this encounterOhiohealth [facility]05-12-2025 Telephone encounter Note * Telephone Encounter [...] Iverson LPN July 09, 2024 2:14 PM [facility]05-12-2025 Miscellaneous Notes* Telephone Encounter - Lily [...] 09, 2024 2:14 PM documented in this encounterOhiohealth [facility]03-11-2025 Telephone encounter Note * Telephone Encounter [...] Iverson LPN May 08, 2024 9:02 AM [facility]03-11-2025 Miscellaneous Notes* Telephone Encounter - Lily [...] 08, 2024 9:02 AM documented in this encounterOhiohealth [facility]03-03-2025 NoteHNO ID: [id number] Author: KARLA OCAMPO APRN.VENT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 Service: ? Author Type: Nurse Practitioner Type: [...] disease), cervical DDD (degenerative disc disease), lumbar [facility]Dr Jonathan Diabetes mellitus type II (HCC) Endometriosis GERD (gastroesophageal reflux disease) Hot flashes Hyperlipidemia Hypertension Labral tear of hip, degenerative left hip, Seeing ortho Obesity Plantar fasciitis of right foot 2013 s/p plantar fasciotomy S/P hysterectomy LSO Seasonal allergies Uterine fibroid s/p hysterectomy ALLERGIES Codeine, Contrast Dye, Shellfish Containing Products, Squash, Sulfa Dyne, and [place] MEDICATIONS Current Outpatient Medications Medication Sig phenazopyridine (PYRIDIUM) 200 mg tablet Take 1 tablet by mouth three times a day as needed. cyclobenzaprine (FLEXERIL) 10 mg tablet Take 1 tablet by mouth two times a day as needed for muscle spasm. phenazopyridine (PYRIDIUM) 200 mg tablet Take 1 tablet by mouth three times a day as needed. glucosamine/msm/chondroit sulf (GLUCOSAMINE [id number] ORAL) cyclobenzaprine (FLEXERIL) 10 mg tablet Take [...] no acute distress, well-hydrat (more content not included)...[facility] History of Present illness Narrative* Karla Ocampo APRN.VENT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 - 04/30/2024 2:36 PM EST 04/11/2024 Patient [...] Shellfish Containing Products, Squash, Sulfa Dyne, and [place] MEDICATIONS Current Outpatient Medications Medication Sig phenazopyridine (PYRIDIUM) 200 mg tablet Take 1 tablet by mouth three times a day as needed. cyclobenzaprine (FLEXERIL) 10 mg tablet Take 1 tablet by mouth two times a day as needed for musclespasm. phenazopyridine (PYRIDIUM) 200 mg tablet Take 1 tablet by mouth three times a day as needed. glucosamine/msm/chondroit sulf (GLUCOSAMINE [id number] ORAL) cyclobenzaprine (FLEXERIL) 10 mg tablet Take [...] Level: 4 - Moderate documented in this encounterOhiohealth [facility]02-12-2025 NoteHNO ID: [id number] Author: KARLA OCAMPO APRN.CNP Service: ? Author [...] disease), cervical DDD (degenerative disc disease), lumbar [facility] Jonathan Diabetes mellitus type II (HCC) [...] Hypertension Father Coronary Artery Disease Father 59 [place] in 2010- LDa Thyroid Sister Thyroid Sister Heart Maternal Grandmother Rheumatologic disease Paternal Grandmother arthritis Patient Allergies ALLERGIES Allergen Reactions Codeine Anaphylaxis Contrast Dye Anaphylaxis Shellfish Containin* GI Upset Squash GI Upset Sulfa Dyne Anaphylaxis [place] GI Upset Current Medications Current Outpatient Medications on File Prior to Visit Medication Sig cyclobenzaprine (FLEXERIL) 10 mg tablet Take 1 tablet by mouth two times a day as needed for muscle spasm. phenazopyridine (PYRIDIUM) 200 mg tablet Take 1 tablet by mouth three times a day as needed. glucosamine/msm/chondroit sulf (GLUCOSAMINE [id number] ORAL) cyclobenzaprine (FLEXERIL) 10 mg tablet Take [...] prior to visit. Social (more content not included)...[facility] History of Present illness Narrative* Podlogar, AMISH Acosta.VENT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 - 04/11/2024 2:18 PM EST Chief Complaint [...] disease), cervical DDD (degenerative disc disease), lumbar [facility] Castillo Diabetes mellitus type II (HCC) [...] Hypertension Father Coronary Artery Disease Father 59 [place] in 2010- LDa Thyroid Sister Thyroid Sister Heart Maternal Grandmother Rheumatologic disease Paternal Grandmother arthritis Patient Allergies ALLERGIES Allergen Reactions Codeine Anaphylaxis Contrast Dye Anaphylaxis Shellfish Containin* GI Upset Squash GI Upset Sulfa Dyne Anaphylaxis [place] GI Upset Current Medications Current Outpatient Medications on File Prior to Visit Medication Sig cyclobenzaprine (FLEXERIL) 10 mg tablet Take 1 tablet by mouth two times a day as needed for musclespasm. phenazopyridine (PYRIDIUM) 200 mg tablet Take 1 tablet by mouth three times a day as needed. glucosamine/msm/chondroit sulf (GLUCOSAMINE [id number] ORAL) cyclobenzaprine (FLEXERIL) 10 mg tablet Take [...] ER with red flag symptoms Karla Ocampo APRN.VENT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 Prescription instructions reviewed with patient as applicable. [...] Level: 3 - Low documented in this encounterOhiohealth [facility]02-12-2025 Telephone encounter Note * Telephone Encounter - Karla Ocampo APRN.CNP - 04/11/2024 10:37 AM EST Reviewed. Karla Ocamop APRN.DEEPALI [facility]02-12-2025 Miscellaneous Notes* Telephone Encounter - Karla [...] I have openings today documented in this encounterOhiohealth [facility]02-12-2025 Telephone encounter Note * Telephone Encounter - Lyn Winkler LPN - 04/11/2024 10:13 AM EST Phoned patient and she is agreeable but reported she was in training until after 1 pm. Offered available opening's on Karla's schedule and she accepted 2:20 pm slot. Lyn Winkler LPN [facility]02-12-2025 Telephone encounter Note* Telephone Encounter - Antonio Hui MD - 04/11/2024 10:08 AM EST Recommend repeat OV to recheck UA and send culture if needed. I have openings today [facility]02-03-2025 NoteHNO ID: [id number] Author: ANTONIO HUI MD Service: ? Author [...] disease), cervical DDD (degenerative disc disease), lumbar [facility] Castillo Diabetes mellitus type II (HCC) [...] Hypertension Father Coronary Artery Disease Father [address] [place] in 2009- Thyroid Sister Thyroid Sister Heart Maternal Grandmother Rheumatologic disease Paternal Grandmother arthritis Patient Allergies ALLERGIES Allergen Reactions Codeine Anaphylaxis Contrast Dye Anaphylaxis Shellfish Containin* GI Upset Squash GI Upset Sulfa Dyne Anaphylaxis [place] GI Upset Current Medications Current Outpatient Medications on File Prior to Visit Medication Sig glucosamine/msm/chondroit sulf (GLUCOSAMINE [id number] ORAL) cyclobenzaprine (FLEXERIL) 10 mg tablet Take [...] Never Vaping Use V (more content not included)...[facility] History of Present illness Narrative* Antonio Hui [...] disease), cervical DDD (degenerative disc disease), lumbar [facility] Diabetes mellitus type II (HCC) [...] Hypertension Father Coronary Artery Disease Father [address] [place] in 2009- LDa Thyroid Sister Thyroid Sister Heart Maternal Grandmother Rheumatologic disease Paternal Grandmother arthritis Patient Allergies ALLERGIES Allergen Reactions Codeine Anaphylaxis Contrast Dye Anaphylaxis Shellfish Containin* GI Upset Squash GI Upset Sulfa Dyne Anaphylaxis [place] GI Upset Current Medications Current Outpatient Medications on File Prior to Visit Medication Sig glucosamine/msm/chondroit sulf (GLUCOSAMINE [id number] ORAL) cyclobenzaprine (FLEXERIL) 10 mg tablet Take [...] THERAPY Antonio Hui MD documented in this encounterOhio[facility] Telephone encounter Note * Telephone Encounter - Kallie Guevara MA - 03/13/2024 2:21 PM EST Patient given results and verbalized understanding of instructions given. Kallie Guevara MA [facility]01-14-2025 Miscellaneous Notes* Telephone Encounter - Kallie [...] blood in the urine documented in this encounterOhiohealth [facility]ering[facility]01-14-2025 Telephone encounter Note * Telephone Encounter - Kamryn Duran PA - 03/13/2024 1:16 PM EST Please let patient know urine culture reveals no UTI. She may continue antibiotic if it is helping with symptoms. needs close follow-up with PCP to ensure resolution of blood in the urine [facility]01-13-2025 Telephone encounter Note* Telephone Encounter - Kallie Guevara MA - 03/12/2024 11:01 AM EST Left detailed message on a secured voicemail. Kallie Guevara MA [facility]01-13-2025 Miscellaneous Notes* Telephone Encounter - Kallie Guevara MA - 03/12/2024 11:01 AM EST Left detailed message on a secured voicemail. Kallie Guevara MA * Telephone Encounter - Kamryn uDran PA - 03/12/2024 10:28 AM EST Sent in. If taking this, do not take Azo [id number]-[id number] * Telephone Encounter - Chrissie Sidhu RN [...] Please call patient back with an update. [phone] Chrissie Sidhu RN documented in this encounterOhiohealth [facility]ering[facility]01-13-2025 Telephone encounter Note * Telephone Encounter - Kamryn Duran PA - 03/12/2024 10:28 AM EST Sent in. If taking this, do not take Azo islw-zra-abwjpci [facility]01-13-2025 Telephone encounter Note* Telephone Encounter - Chrissie Sidhu RN - 03/12/2024 10:17 AM EST Patient reports she was evaluated by provider CARLOS Rodriguez at [facility] this morning and it was pt's understanding that Pyridium (or other) was going to be sent to her pharmacy along with her Macrobid, to help her bladder spasms. Pt asking if provider can send it to [facility]? She is at pharmacy now. Please call patient back with an update. [phone] Chrissie Sidhu RN [facility]01-13-2025 NoteHNO ID: [id number] Author: KAMRYN DURAN PA Service: ? Author Type: Physician Development Associate Type: Progress Notes Filed: 03/12/2024 09:49 Note Text: This note was created using [employer]. Subjective Fantasma Hoyt is a 53 year [...] Shellfish Containing Products, Squash, Sulfa Dyne, and [place] MEDICATIONS glucosamine/msm/chondroit sulf (GLUCOSAMINE [id number] ORAL) cyclobenzaprine (FLEXERIL) 10 mg tablet Take [...] Hypertension Father Coronary Artery Disease Father [address] [place] in 2009- Thyroid Sister Thyroid Sister Heart [...] 97% BMI 34.08 k (more content not included)...[facility] History of Present illness Narrative* Kamryn Duran PA - 03/12/2024 9:47 AM EST This note was created using [employer]. Subjective Fantasma Hoyt is a 53 year [...] disease), cervical DDD (degenerative disc disease), lumbar [facility] Diabetes mellitus type II (HCC) [...] Shellfish Containing Products, Squash, Sulfa Dyne, and [place] MEDICATIONS glucosamine/msm/chondroit sulf (GLUCOSAMINE [id number] ORAL) cyclobenzaprine (FLEXERIL) 10 mg tablet Take [...] Hypertension Father Coronary Artery Disease Father [address] [place] in 2010- LDa Thyroid Sister Thyroid Sister [...] ER evaluation. CARLOS Caldwell documented in this encounterOhiohealth Pickering[facility]12-24-2024 Instructions* Patient Instructions* Lis Roth APRN.CNP [...] breath, inability to swallow. documented in this encounterOhiohealth Pickerington [facility] Hospital12-24-2024 NoteHNO ID: [id number] Author: LIS ROTH APRN.DEEPALI Service: ? Author Type: Nurse Practitioner Type: Progress Notes Filed: 02/21/2024 11:28 Note Text: Subjective The history is provided by the patient. No hourly sign language interpreter was used. NIMESH Hoyt is a 53 [...] have confirmed and edited as necessary, the [facility] Review of Systems Constitutional: Negative for chills [...] detail warranting prompt ER evaluation. Lis Roth APRN.[facility]IM[facility]12[facility] History of Present illness Narrative* Lis Roth APRN.DEEPALI - 02/21/2024 11:23 AM EST Images from the original note were not included. Subjective The history is provided by the patient. No hourly sign language interpreter was used. HPI Fantasma Hoyt is a [...] disease), cervical DDD (degenerative disc disease), lumbar [facility] Diabetes mellitus type II (HCC) Endometriosis GERD (gastroesophageal reflux disease) Hot flashes Hyperlipidemia Hypertension Labral tear of hip, degenerative left hip, Seeing ortho Obesity Plantar fasciitis of right foot 2013 s/p plantar fasciotomy S/P hysterectomy LSO Seasonal allergies Uterine fibroid s/p hysterectomy I have confirmed and edited as necessary, the [facility] Review of Systems Constitutional: Negative for chills [...] indetail warranting prompt ER evaluation. Lis Roth APRN.VENT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 documented in this encounterOhiohealth Pickering[facility]12-20-2024 Telephone encounter Note * Telephone Encounter [...] on 02/09. Protocols used: Blood Pressure - [id number] [facility]12-20-2024 Miscellaneous Notes* Telephone Encounter - Jessica [...] on 02/09. Protocols used: Blood Pressure - [id number] * Telephone Encounter - Chrissie Sidhu RN - 02/17/2024 1:24 PM EST Attempted to contact patient. No answer. Message left for patient to call provider's office to speak with a nurse regarding symptoms as stated in . Chrissie Sidhu RN documented in this encounterOhiohealth Pickering[facility]12-20-2024 Telephone encounter Note * Telephone Encounter - Chrissie Sidhu RN - 02/17/2024 1:24 PM EST Attempted to contact patient. No answer. Message left for patient to call provider's office to speak with a nurse regarding symptoms as stated in . Chrissie Sidhu RN [facility]12-20-2024 Telephone encounter Note* Telephone Encounter - Cecille Block MA - 02/17/2024 1:16 PM EST Placed on Nurse Triage to contact pt. Cecille Block MA [facility]12-20-2024 Miscellaneous Notes* Telephone Encounter - Cecille Block MA - 02/17/2024 1:16 PM EST Placed on Nurse Triage to contact pt. Cecille Block MA documented in this encounterOhiohealth Pickerington [facility]12-02-2024 NoteHNO ID: [id number] Author: WILLIAN ANDREW APRN.VENT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 Service: ? Author Type: Nurse Practitioner Type: [...] disease), cervical DDD (degenerative disc disease), lumbar [facility] Diabetes mellitus type II (HCC) [...] Upset Squash GI Upset Sulfa Dyne Anaphylaxis [place] GI Upset Medications: tirzepatide (MOUNJARO) 15 mg/0.5 [...] persist or s (more content not included)... [facility] History of Present illness Narrative* Willian Andrew, AMISH.VENT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 - 01/30/2024 12:28 PM EST Patient presents [...] disease), cervical DDD (degenerative disc disease), lumbar [facility] Jonathan Diabetes mellitus type II (HCC) [...] Upset Squash GI Upset Sulfa Dyne Anaphylaxis [place] GI Upset Medications: tirzepatide (MOUNJARO) 15 mg/0.5 [...] MOLECULAR (POC) Willian Andrew documented in this encounterOhiohealth Pickering[facility]12-02-2024 Instructions* Patient Instructions* Willian Andrew APRN.CNP [...] Sudafed is a safe and effective decongestant [place] [facility] [place] may offer relief of nasal and head [...] worse rather than better documented in this encounterOhiohealth [facility]11-18-2024 Telephone encounter Note * Telephone Encounter [...] Cobos LPN January 16, 2024 10:45 AM [facility]11-18-2024 Miscellaneous Notes* Telephone Encounter - Steph [...] 16, 2024 10:45 AM documented in this encounterOhiohealth Pickerington [facility] Hospital11-18-2024 Telephone encounter Note * Telephone Encounter [...] Cobos LPN January 16, 2024 10:44 AM [facility]11-18-2024 Miscellaneous Notes* Telephone Encounter - Steph [...] 16, 2024 10:44 AM documented in this encounterOhiohealth Pickerington [facility]08-09-2024 NoteHNO ID: [id number] Author: ANTONIO HUI MD Service: ? Author [...] Morbid obesity with BMI of 40.0-44.9, adult (FORMERLY [facility]) 2014: Plantar fasciitis of right foot Comment: [...] Hypertension Father Coronary Artery Disease Father 59 [place] in 2010- LDa Thyroid Sister Thyroid Sister Heart Maternal Grandmother Rheumatologic disease Paternal Grandmother arthritis Patient Allergies ALLERGIES Allergen Reactions Codeine Anaphylaxis Contrast Dye Anaphylaxis Shellfish Containin* GI Upset Squash GI Upset Sulfa Dyne Anaphylaxis [place] GI Upset Current Medications Current Outpatient Medications [...] 81 mg Tab Take (more content not included)...[facility] History of Present illness Narrative* Antonio [...] sugars in the fasting 90-100 range. Patient's [id number] was Hemoglobin A1C (%) Date Value 11/09/2022 [...] Castillo No date: Diabetes mellitus type II ([facility]) No date: Endometriosis No date: GERD (gastroesophageal reflux disease) No date: Hot flashes No date: Hyperlipidemia No date: Hypertension No date: Labral tear of hip, degenerative Comment: left hip, Seeing ortho No date: Morbid obesity with BMI of 40.0-44.9, adult (FORM[facility]) 2014: Plantar fasciitis of right foot Comment: [...] Hypertension Father Coronary Artery Disease Father 59 [place] in 2010- LDa Thyroid Sister Thyroid Sister Heart Maternal Grandmother Rheumatologic disease Paternal Grandmother arthritis Patient Allergies ALLERGIES Allergen Reactions Codeine Anaphylaxis Contrast Dye Anaphylaxis Shellfish Containin* GI Upset Squash GI Upset Sulfa Dyne Anaphylaxis [place] GI Upset Current Medications Current Outpatient Medications [...] No history of dysuria, frequency or incontinence 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 Antonio Hui MD documented in this encounterOhiohealth [facility]06-11-2024 History of Present illness Narrative* Kamryn [...] Shellfish Containing Products, Squash, Sulfa Dyne, and [place] MEDICATIONS tirzepatide (MOUNJARO) 15 mg/0.5 mL pen [...] Hypertension Father Coronary Artery Disease Father [address] [place] in 2009- Thyroid Sister Thyroid Sister Heart [...] ER evaluation. CARLOS Caldwell documented in this encounterOhiohealth Pickering[facility]04-12-2024 Miscellaneous Notes* Telephone Encounter - Antonio Hui MD - 06/10/2023 11:50 AM EDT Rx for Mounjaro 15 mg sent as requested. Keep f/u appointment as scheduled. documented in this encounterOhiohealth Pickering[facility]02-28-2024 Miscellaneous Notes* Telephone Encounter - Ondina Wallace LPN - 04/27/2023 4:41 PM EST Sent as requested. documented in this encounterOhiohealth Pickerington [facility] Hospital01-29-2024 Discharge summary Author Richie Lai [facility] March 28, 2023 1:16pm Note Date/Time March 28, 2023 9 :55am [facility] Medical Records Department [address] [place] [id number] Emergency Department Summary 03/28/23 MR#: [id number] Acct: [id number] Name: FANTASMA RHOADES Rep #:[id number] : [...] clinician: N/A This note was generated with [employer] dictation software. It may contain incorrect words, [...] % (Auto) 61.0 Lymph % (Auto) 27.3 Hardy % (Auto) 8.7 Eos % (Auto) 2.3 [...] tablet,chewable 81 mg PO DAILY@0800 Patient Comments: HRBoss cholecalciferol (vitamin D3) 1,000 UNIT capsule 1,000 [...] your Primary Care Provider. Call [facility] ([phone]) or report to the closest Emergency Room. Call 911 if necessary. 03/28/23 1316 <Electronically signed by Richie Ramey> Cosigner Signature (if applicable): CC: Dr. Buddy Hui MD ~ Signed [facility] Work Phone: 1(897) 510-875201-29-2024 Hospital Discharge instructions Additional Instructions Abdominal labs are normal. Pancreas enzymes normal liver enzymes normal levels. Ultrasound your gallbladder region normal gallbladder structures. You have a fatty liver. You have a benign growth on your right kidney 8 to 9 mm in size. Monitor symptoms and follow-up with your doctor.[facility] Work Phone: 1(898) 311-751410-26-2023 Procedure [facility] 11-05-2022 Miscellaneous Notes* Telephone Encounter - Cecille Block Ma - 11/05/2022 9:15 AM EDT Aditive message sent to pt notifying her of message below. Cecille Block Ma * Telephone Encounter - Antonio Hui MD - 11/05/2022 9:01 AM EDT Labs reordered. Come in for blood and urine in 1 week. documented in this encounterOhiohealth Pickerington [facility]07-03-2023 Miscellaneous Notes* Telephone Encounter - Suzy [...] you. Suzy Meier LPN documented in this encounterOhiohealth Pickerington [facility] Hospital06-23-2023 Miscellaneous Notes* Addendum Note - Karla Ocampo APRN.CNP - 08/20/2022 2:26 PM EDTAddended by: KARLA OCAMPO on: 08/20/2022 02:26 PM Modules accepted: Orders documented in this encounterOhiohealth Pickerington [facility]06-20-2023 Miscellaneous Notes* Telephone Encounter - Lena Marquis MA - 08/17/2022 3:18 PM EDT Patient active MyChart. Patient notified via [employer] message. The following approved medication requests have been transmitted electronically. Requested Prescriptions Signed Prescriptions Disp Refills tirzepatide (MOUNJARO) 12.5 mg/0.5 mL pen injector 6 mL 1 Sig: Inject 12.5 mg subcutaneously one time a week. Lena Marquis MA * Telephone Encounter - Antonio Hui MD - 08/17/2022 1:59 PM EDT 90 day rx for 12.5 mg mounjaro sent as requested. documented in this encounterOhiohealth Pickerington [facility]06-15-2023 History of Present illness Narrative* Antonio [...] reduction last week with Dr. Martin at [facility] without complications. Has follow up in 1 [...] Hypertension Father Coronary Artery Disease Father 59 [place] in 2010- LDa Thyroid Sister Thyroid Sister Heart Maternal Grandmother Rheumatologic disease Paternal Grandmother arthritis Patient Allergies ALLERGIES Allergen Reactions Michael GI Upset Codeine Anaphylaxis Contrast Dye Anaphylaxis Shellfish Containin* GI Upset Squash GI Upset Strawberries Other: See Comments nose and mouth tingle Sulfa Dyne Anaphylaxis [place] GI Upset Current Medications Current Outpatient Medications [...] cellulitis, abscess or purulent drainage. Patient refused subway guard for this exam. Abdomen: Normal abdominal exam, [...] SCRN Antonio Hui MD documented in this encounterOhiohealth Pickerington [facility]05-15-2023 Miscellaneous Notes* Telephone Encounter - Isidra [...] same. Isidra Chi LPN documented in this encounterOhiohealth Pickerington [facility]05-12-2023 Miscellaneous Notes* Telephone Encounter - Kimmie Chávez Ma - 07/09/2022 2:20 PM EDT PA approved and patient was left voicemail on cell phone CaseId:[id number];Status:Approved;Review Type:Prior Auth;Coverage Start Date:06/09/2022;Coverage End Date:07/09/2023; Kimmie Chávez Ma * Telephone Encounter - Cecille Block Ma - 07/09/2022 12:26 PM EDT Pt wrote into office via [employer] that [employer] is wanting PA on medication, but her local pharmacy didn't need one. Pt notified this has been routed to PA Nurse. Cecille Block Ma documented in this encounterOhiohealth Pickerington [facility] Hospital05-01-2023 Miscellaneous Notes* Telephone Encounter - Cecille Block Ma - 06/28/2022 1:24 PM EDT See message from pt. Cecille Block Ma documented in this encounterOhiohealth Pickerington [facility] Hospital04-24-2023 Miscellaneous Notes* Telephone Encounter - Eileen Nagy LPN - 06/21/2022 10:15 AM EDT See MC message. Eileen Nagy LPN * Telephone Encounter - Karla Ocampo APRN.DEEPALI - 06/21/2022 9:42 AM EDT I can reorder the meloxicam- where would she like this sent? Karla Ocampo APRN.CNP documented in this encounterOhiohealth Pickerington [facility]03-24-2023 Miscellaneous Notes* Telephone Encounter - Lynn [...] EDT Patient would like it sent to [facility] at [address] Says her lowest BS was 99 and that onlyoccurred once. Eileen Nagy LPN * Telephone Encounter - Karla Ocampo APRN.CNP - 05/17/2022 12:14 PM EDT So is she wanting the 12.5 mg sent to [facility] Blood sugar average looks good- has she [...] you. Lynn Mathews LPN documented in this encounterOhiohealth Pickerington [facility]03-15-2023 History of Present illness Narrative* Ryan [...] 12, 2022 11:29 AM documented in this encounterOhiohealth Pickerington [facility] Hospital02-01-2023 Miscellaneous Notes* Telephone Encounter - Lynn Mathews LPN - 03/31/2022 8:36 AM EST Prescription for the Mounjaro 12.5 was sent to [facility] then cancelled at [facility] thru escript. I gave [facility] the prescription verbally. I called [facility] and [facility] Lynn Mathews LPN * Telephone Encounter - [...] becomes available. I sent the prescription to [facility]. Please cancel the one sent to [facility] Karla Ocampo APRN.DEEPALI * Telephone Encounter - Lynn Mathews LPN - 03/30/2022 12:22 PM EST Pt called and has 1 injection left on her Mounjaro and now it is on back order till April. Pt asking if you would bump her up to 12.5 and she has found 1 pharmacy that has this and they are holding it for her. [facility] has it. Please advise pt. Lynn Mathews LPN documented in this encounterOhiohealth Pickerington [facility] Hospital01-24-2023 Miscellaneous Notes* Telephone Encounter - Kimmie [...] ExS website, the prescriber needs to call [phone] for a coverage review. Relevant information is below: My first does was November 21, 2021 RxBIN: [id number] RxPCN: [id number] RxGrp: [id number] Material Requisitioner: [id number] ID: [id number] Thank you for all that you do and in advance for helping me get this approval. Fantasma documented in this encounterOhiohealth Pickerington [facility]01-11-2023 Miscellaneous Notes* Telephone Encounter - Kimmie Chávez Ma - 03/10/2022 1:08 PM EST TE created for prior auth Kimmie Chávez Ma * Telephone Encounter - Antonio Hui MD - 03/09/2022 5:30 PM EST Please initiate PA for Mounjaro per patient request. * Telephone Encounter - Eileen Nagy LPN - 03/09/2022 3:58 PM EST See message. Eileen Nagy LPN documented in this encounterOhiohealth Pickerington [facility]01-10-2023 Miscellaneous Notes* Telephone Encounter - Lily Iverson LPN - 03/09/2022 3:23 PM EST Please see [employer] message / Insurance and pharmacy changed Patient [...] you. Lily Iverson LPN documented in this encounterOhiohealth Pickerington [facility] Hospital12-20-2022 Miscellaneous Notes* Telephone Encounter - Eileen Nagy LPN - 02/16/2022 11:27 AM EST I see it was signed but I don't see where it went to? Please advise. Eileen Nagy LPN documented in this encounterOhiohealth Pickerington [facility] Hospital09-23-2022 Miscellaneous Notes* Telephone Encounter - Kate Hernández Ma - 11/20/2021 12:13 PM EDT Last office visit: 08/04/21 F/u scheduled: 02/05/22 Kate Hernández Ma documented in this encounterOhiohealth Pickerington [facility] Hospital07-29-2022 Miscellaneous Notes* Telephone Encounter - Jennifer Nelson MD - 09/25/2021 2:32 PM EDT Told patient pathology report - hyperplastic polyp. screening colonoscopy recommended for 10 years Patient acknowledges above. She will return to her PCP for medical care. HM updated and recall letter generated documented in this encounterOhiohealth Pickerington [facility] Hospital07-26-2022 History and physical note * Jennifer [...] Containing Products, Squash, Strawberries, Sulfa Dyne, and [place] PERSONAL HISTORY: SOCIAL HISTORY Social History Tobacco [...] Hypertension Father Coronary Artery Disease Father 59 [place] in 2009- Thyroid Sister Thyroid Sister Heart Maternal Grandmother Rheumatologic disease Paternal Grandmother arthritis REVIEW OF SYMPTOMS: The review of systems data was entered by the nurse and reviewed by mo Nursing Notes: Belkys Silverman LPN 08/25/2021 9:08 [...] patient was offered a [facility]. I have counseled the patient [...] mail. Francie Laws PA-C documented in this encounterOhiohealth Pickerington [facility] Hospital07-26-2022 Miscellaneous Notes* Brief Op Note - Jennifer Nelson MD - 09/22/2021 11:30 AM EDT BRIEF OPERATIVE NOTE SURGERY DATE: 09/22/2021 Incision/Procedure Start Time: 11:52 Cecal intubation time: 11:55 Incision Close/Procedure End Time: 12:09 Surgeon(s)/Proceduralist(s) and Development Associate(s): Omar Procedures: Colonoscopy with polypectomy Anesthesia: MAC Findings: rectal polyp about 1 cm Estimated Blood Loss: minimal Specimens: rectal polyp Complications: None Preop Diagnosis: screening for colon cancer Postop Diagnosis: rectal polyp, hemorrhoids SIGNATURE: Jennifer Nelson MD PATIENT NAME: Fantasma Rhoades DATE: September 22, 2021 TIME: 12:10 PM documented in this encounterOhiohealth Pickerington [facility] Hospital06-29-2022 Miscellaneous Notes* Telephone Encounter - Karla Ocampo APRN.CNP - 08/26/2021 7:52 AM EDT Please fax referral to [facility]. Thanks, Karla Ocampo APRN.CNP * Telephone Encounter - Karla Ocampo APRN.CNP - 08/26/2021 7:48 AM EDT Please fax referral to [facility]. Karla Ocampo APRN.CNP documented in this encounterOhiohealth Pickerington [facility] Hospital06-28-2022 Miscellaneous Notes* Telephone Encounter - Nicole Sawant - 08/25/2021 3:28 PM EDT Called patient and informed of Rivera's message. Per patient will call insurance company and get estimates for each location then call back if patient wants to reschedule from [place] to [facility] * Telephone Encounter - Nicole Sawant - 08/25/2021 3:25 PM EDT Images from the original note were not included. Jennifer Nelson MD You 45 minutes ago (2:38 [...] 11:18 AM EDT Patient scheduled 09/22 in [place] with for a colonoscopy. Patient reached out [...] EDT 09/22/2021 COLON LODI documented in this encounterOhiohealth Pickerington Methodist [facility] History of Present illness Narrative* Francie [...] disease), cervical DDD (degenerative disc disease), lumbar [facility] Diabetes mellitus type II (HCC) [...] Containing Products, Squash, Strawberries, Sulfa Dyne, and [place] PERSONAL HISTORY: Social History Tobacco Use Smoking [...] Hypertension Father Coronary Artery Disease Father [address] [place] in 2009- Thyroid Sister Thyroid Sister Heart Maternal Grandmother Rheumatologic disease Paternal Grandmother arthritis REVIEW OF SYMPTOMS: The review of systems data was entered by the nurse and reviewed by mo Nursing Notes: Belkys Silverman LPN 08/25/2021 9:08 [...] patient was offered a surgery/procedure at a [facility] facility. I have counseled the patient [...] mail. Francie Laws PA-C documented in this encounterOhio[facility] Nurse Note* Belkys Silverman, RESEARCH CHEMICAL ENGINEER - 08/25/2021 9:07 AM EDT REVIEW OF [...] 1996 Belkys Silverman LPN documented in this encounterOhio[facility] Miscellaneous Notes* Telephone Encounter - Karla Ocampo APRN.CNP - 08/24/2021 11:23 AM EDT Order for hepatitis B placed. Karla Ocampo APRN.CNP * Telephone Encounter - Sharita Malave LPN - 08/24/2021 10:44 AM EDT Patient scheduled for nurse visit 09/04/21 to receive Hepatitis B vaccine. Please place order at thistime. Sharita Malave LPN documented in this encounterOhio[facility] Miscellaneous Notes* Telephone Encounter - Francie [...] tingling. Karla Ocampo APRN.CNP documented in this encounterOhio[facility] Miscellaneous Notes* Telephone Encounter - Francie Marshall RN - 08/11/2021 11:46 AM EDT Called Pt and answered message in providers Telephone encounter. documented in this encounterOhio[facility]06[facility]22 Miscellaneous Notes* Telephone Encounter - Karla Ocampo APRN.CNP - 08/11/2021 9:53 AM EDT Patient needs appointment to discuss her numbness and tingling. Karla Ocampo APRN.CNP documented in this encounterOhio[facility] History of Present illness Narrative* Antonio [...] will not cover her to go see adult crossing guard. Due for hepatitis B vaccine. Remembers testing years ago showing she was not immune. Would like first shot today. Past medical history, appointments, medications, allergies reviewed. Previous Medical History PAST MEDICAL HISTORY Diagnosis Date Acute meniscal tear of left knee 2013 s/p repair DDD (degenerative disc disease), cervical DDD (degenerative disc disease), lumbar [facility] Diabetes mellitus type II (HCC) [...] Hypertension Father Coronary Artery Disease Father [address] [place] in 2010- LDa Thyroid Sister Thyroid Sister Heart Maternal Grandmother Rheumatologic disease Paternal Grandmother arthritis Patient Allergies ALLERGIES Allergen Reactions Michael GI Upset Codeine Anaphylaxis Contrast Dye Anaphylaxis Shellfish Containin* GI Upset Squash GI Upset Strawberries Other: See Comments nose and mouth tingle Sulfa Dyne Anaphylaxis [place] GI Upset Current Medications Current Outpatient Medications [...] arise. 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 Antonio Hui MD documented in this encounterOhio[facility]04-30[facility] History of Present illness Narrative* Syeda [...] adamantly declined. She will drive herself to [facility]. Syeda Tenorio APRN.CNP documented in this encounterOhio[facility]10-30-2019 History of Past illness Narrative* Problem Noted Date Resolved Date Prediabetes 12/27/2018 documented as of this encounter (statuses as of 06/27/2021) [facility] History of Past illness Narrative* Problem Noted Date Resolved Date Prediabetes 12/27/2018 documented as of this encounter (statuses as of 08/05/2021) [facility] History of Past illness Narrative* Problem Noted Date Resolved Date Prediabetes 12/27/2018 documented as of this encounter (statuses as of 08/11/2021) [facility] of [facility] illness Narrative* Problem Noted Date Resolved Date Prediabetes 12/27/2018 documented as of this encounter (statuses as of 08/11/2021) [facility] of [facility] illness Narrative* Problem Noted Date Resolved Date Prediabetes 12/27/2018 documented as of this encounter (statuses as of 08/24/2021) [facility] of [facility] illness Narrative* Problem Noted Date Resolved Date Prediabetes 12/27/2018 documented as of this encounter (statuses as of 08/26/2021) [facility] of Past illness Narrative* Problem Noted Date Resolved Date Prediabetes 12/27/2018 documented as of this encounter (statuses as of 09/01/2021) [facility] of [facility] illness Narrative* Problem Noted Date Resolved Date Prediabetes 12/27/2018 documented as of this encounter (statuses as of 09/18/2021) [address]30[address]2019 History of Past illness Narrative* Problem Noted Date Resolved Date Prediabetes 12/27/2018 documented as of this encounter (statuses as of 09/23/2021) [facility] of Past illness Narrative* Problem Noted Date Resolved Date Prediabetes 12/27/2018 documented as of this encounter (statuses as of 09/25/2021) [address]2019 History of Past illness Narrative* Problem Noted Date Resolved Date Prediabetes 12/27/2018 documented as of this encounter (statuses as of 10/01/2021) [address]2019 History of Past illness Narrative* Problem Noted Date Resolved Date Prediabetes 12/27/2018 documented as of this encounter (statuses as of 11/20/2021) [facility] Narrative* Problem Noted Date Resolved Date Prediabetes 12/27/2018 documented as of this encounter (statuses as of 02/16/2022) [address]2019 History of Past illness Narrative* Problem Noted Date Resolved Date Prediabetes 12/27/2018 documented as of this encounter (statuses as of 03/09/2022) [address]2019 History of Past illness Narrative* Problem Noted Date Resolved Date Prediabetes 12/27/2018 documented as of this encounter (statuses as of 03/10/2022) [address]2019 History of Past illness Narrative* Problem Noted Date Resolved Date Prediabetes 12/27/2018 documented as of this encounter (statuses as of 03/24/2022) [address]2019 History of Past illness Narrative* Problem Noted Date Resolved Date Prediabetes 12/27/2018 documented as of this encounter (statuses as of 03/31/2022) [address]2019 History of Past illness Narrative* Problem Noted Date Resolved Date Prediabetes 12/27/2018 documented as of this encounter (statuses as of 04/14/2022) [facility] Narrative* Problem Noted Date Resolved Date Prediabetes 12/27/2018 documented as of this encounter (statuses as of 05/21/2022) [facility] Narrative* Problem Noted Date Resolved Date Prediabetes 12/27/2018 documented as of this encounter (statuses as of 06/18/2022) [facility] of [facility] illness Narrative* Problem Noted Date Resolved Date Prediabetes 12/27/2018 documented as of this encounter (statuses as of 06/22/2022) [facility] of Past illness Narrative* Problem Noted Date Resolved Date Prediabetes 12/27/2018 documented as of this encounter (statuses as of 06/29/2022) [address] History of Past illness Narrative* Problem Noted Date Resolved Date Prediabetes 12/27/2018 documented as of this encounter (statuses as of 07/09/2022) [facility] Narrative* Problem Noted Date Resolved Date Prediabetes 12/27/2018 documented as of this encounter (statuses as of 07/12/2022) [facility] Narrative* Problem Noted Date Resolved Date Prediabetes 12/27/2018 documented as of this encounter (statuses as of 08/14/2022) [facility] Narrative* Problem Noted Date Resolved Date Prediabetes 12/27/2018 documented as of this encounter (statuses as of 08/16/2022) [facility] Narrative* Problem Noted Date Resolved Date Prediabetes 12/27/2018 documented as of this encounter (statuses as of 08/17/2022) [facility] of Past illness Narrative* Problem Noted Date Resolved Date Prediabetes 12/27/2018 documented as of this encounter (statuses as of 08/18/2022) [address] History of Past illness Narrative* Problem Noted Date Resolved Date Prediabetes 12/27/2018 documented as of this encounter (statuses as of 08/20/2022) [facility] Narrative* Problem Noted Date Resolved Date Prediabetes 12/27/2018 documented as of this encounter (statuses as of 08/30/2022) [facility] Narrative* Problem Noted Date Diagnosed Date Resolved Date Prediabetes 12/27/2018 documented as of this encounter (statuses as of 11/05/2022) [facility] Narrative* Problem Noted Date Diagnosed Date Resolved Date Prediabetes 12/27/2018 documented as of this encounter (statuses as of 01/03/2023) [facility] Narrative* Problem Noted Date Diagnosed Date Resolved Date Prediabetes 12/27/2018 documented as of this encounter (statuses as of 04/28/2023) [facility] Narrative* Problem Noted Date Diagnosed Date Resolved Date Prediabetes 12/27/2018 documented as of this encounter (statuses as of 06/10/2023) [facility]Dis[facility] summary Author Raul Weeksgett [facility] Note Date/Time August 06, 2024 9:12a m [facility] Medical Records Department [address] [place] [address] Emergency Department Summary 08/06/24 MR#: [id number] Acct: [id number] Name: FANTASMA RHOADES Rep #:[id number] : [...] intact Psych: Cooperative, appropriate mood and affect [facility] Medical History JENNIFFER (stress urinary incontinence, female) [...] gentle stretching. Follow-up with PCP. Print Language: Belarusian Disposition Disposition: Home, Self Care What to do if you have Problems For any increased pain, shortness of breath, bleeding, nausea or vomiting, chestpain, or any unexpected problems, contact your Primary Care Provider. Call [facility] ([phone]) or report to the closest Emergency Room. Call 911 if necessary. 08/06/24911 <Electronically signed by Raul Abreu DO> Cosigner Signature (if applicable): CC: Dr. Buddy Hui MD ~ Signed [facility] Work Phone: Evaluation noteNo assessment information available [facility] Work Phone: Evaluation note* Diagnosis S/P epidural steroid injection- Primary Other postprocedural status Neck pain Cervicalgia Dizziness Dizziness and giddiness Intractable vomiting Persistent vomiting [facility]* Diagnosis Onset Date Resolution Status Climacteric acute Morbid obesity with body mass index of 40.0-49.9 chronic [facility] Work Phone: Evaluation note* Diagnosis Diabetes mellitus [...] of hip, degenerative [facility]* Diagnosis Need for vaccination- Primary Need for prophylactic vaccination and inoculation against unspecified single disease [facility]* Diagnosis Large breasts- Primary Hypertrophy of breast documented [facility]* Diagnosis Screening for colon cancer Special screening for malignant neoplasms, colon documented [facility]* Diagnosis Screening for colon cancer Special screening for malignant neoplasms, colon documented [facility]* Diagnosis Screening for colon cancer- Primary Special screening for malignant neoplasms, colon documented [facility]* Diagnosis Essential hypertension Unspecified essential hypertension Diabetes mellitus type II (HCC) documented [facility] this encounter [facility]* Diagnosis Diabetes mellitus type II (HCC) Obesity, Class III, BMI 40-49.9 (morbid obesity) (HCC) Morbid obesity documented [facility] encounter [facility]* Diagnosis Essential hypertension Unspecified essential hypertension Diabetes mellitus type II (HCC) [facility] Diagnosis Diabetes mellitus type II (HCC) Obesity, Class III, BMI 40-49.9 (morbid obesity) (HCC) Morbid obesity documented [facility]* Diagnosis Diabetes mellitus type II (HCC)- Primary documented [facility]* Diagnosis Diabetes mellitus type II (HCC)- Primary Macromastia Hypertrophy of breast S/P bilateral breast reduction Other postprocedural status Primary hypertension Unspecified essential hypertension Hyperlipidemia, unspecified hyperlipidemia type Obesity, Class III, BMI 40-49.9 (morbid obesity) (HCC) Morbid obesity Encounter for hepatitis C screening test for low risk patient [facility]* Diagnosis Encounter for screening mammogram for breast cancer [facility]* Diagnosis Onset Date Resolution Status Climacteric acute Urinary incontinence, mixed acute Encounter for routine gynecological examination noneactive [facility] Work Phone: Evaluation note* Diagnosis Diabetes mellitus type II (HCC)- Primary Encounter for hepatitis C screening test for low risk patient [facility] Diagnosis Encounter for screening for osteoporosis Special screening for osteoporosis [facility]* Diagnosis Sore throat- Primary Acute pharyngitis [facility] Diagnosis Encounter for screening mammogram for breast cancer [facility] Diagnosis Annual physical exam- Primary [...] lumbosacral intervertebral disc [facility] Diagnosis Essential hypertension Unspecified essential hypertension Diabetes mellitus type II (HCC) [facility] Diagnosis Viral upper respiratory illness- Primary Acute upper respiratory infections of unspecified site [facility] Diagnosis Upper back pain- Primary [facility] Diagnosis Urinary frequency- Primary [facility] Diagnosis Acute pain of left shoulder- Primary [facility] Diagnosis Acute pain of left shoulder [facility] Diagnosis UTI symptoms- Primary Other symptoms involving urinary system [facility]* Diagnosis Diabetes mellitus type II (HCC)- Primary Hyperlipidemia, unspecified hyperlipidemia type Primary hypertension Unspecified essential hypertension Gastroesophageal reflux disease, unspecified whether esophagitis present [facility] Diagnosis Essential hypertension Unspecified essential hypertension Diabetes mellitus type II (HCC) [facility] Diagnosis Cervical stenosis of spinal canal- Primary Spinal stenosis in cervical region Foraminal stenosis of cervical region Spinal stenosis in cervical region [facility]* Diagnosis Cervical disc disorder at C6-C7 level with radiculopathy- Primary DDD (degenerative disc disease), cervical Degeneration of cervical intervertebral disc Diabetes mellitus type II (HCC) S/P bilateral breast reduction Other postprocedural status [facility] Diagnosis Onset Date Resolution Status Admit Date Encounter for routine gynecological examination noneactive August 292024 2:24pm [facility] Work Phone: Hospital Discharge instructions Additional Instructions Stitches need removed in 7 days. You can shower as normal. Do not keep your hand submerged underwater such as bathing or swimming. If any signs of infection develop return to the ER (redness, swelling, pus, increased pain).[facility] Work Phone: Hospital Discharge instructions Additional Instructions [facility] Discharge instructions Additional [...] rest and gentle stretching. Follow-up with PCP. [facility] Work Phone: Reason for referral (narrative)* Outpatient Procedure (Routine) - Closed Specialty Diagnoses / Procedures Referred By Claire maldonado Referred To Contact [facility] Diagnoses Screening for colon cancer Procedures COLONOSCOPY SCREENING COLONOSCOPY FLX DX W/COLLJ SPEC WHEN PFRMD Francie Laws PA-C [address] [place] [address] [facility] [address] [place] [address] Referral ID Status Reason Start Date Expiration Date V isits Requested Visits Authorized [id number] Closed Auto-Generate d Referral 08/25/2021 08/25/2022 1 1 [facility] for referral (narrative)* Outpatient Procedure (Routine) - Closed Specialty Diagnoses / Procedures Referred By Contac t Referred To Contact [facility] Diagnoses Screening for colon cancer Procedures COLONOSCOPY SCREENING COLONOSCOPY FLX DX W/COLLJ SPEC WHEN PFRMD Francie Laws PA-C [address] [place] [address] [facility] [address] [place] [address] Referral ID Status Reason Start Date Expiration Date V isits Requested Visits Authorized [id number] Closed Auto-Generate d Referral 08/25/2021 08/25/2022 1 1 [facility] for referral (narrative)* Diagnostic Procedure Only (Routine) - Pending Review Specialty Diagnoses / Procedures Referred By Claire t Referred To Contact [facility] Diagnoses Encounter for screening mammogram for breast cancer Procedures CHATO SCREENING SCREENING MAMMOGRAPHY BI 2-VIEW BREAST INC Antonio Cazares MD [address] [place] [id number] [facility] [address] [place] [address] Referral ID Status Reason Start Date Expiration Date Visits Requested Visits Authorized [id number] Pending Review Auto-Generat ed Referral 08/11/2022 09/10/2023 1 1 T [facility] for referral (narrative)* Diagnostic Procedure Only (Routine) - Pending Review Specialty Diagnoses / Procedures Referred By Contac t Referred To Contact [facility] Diagnoses Encounter for screening mammogram for breast cancer Procedures CHATO SCREENING W JAYMIE SCREENING DIGITAL BREAST TOMOSYNTHESIS BI SCREENING MAMMOGRAPHY BI 2-VIEW BREAST INC Antonio Cazares MD [address] [place] [id number] [facility] [address] [place] [address] Referral ID Status Reason Start Date Expiration Date Visits Requested Visits Authorized [id number] Pending Review Auto-Generat ed Referral 08/17/2023 09/15/2024 1 1 [facility] for referral (narrative)No reason for referral information availableWMercy [facility] Work Phone: Reason for visit Narrative* Outpatient Procedure (Routine) - Closed Specialty Diagnoses / Procedures Referred By Claire t Referred To [facility] Diagnoses Screening for colon cancer Procedures COLONOSCOPY SCREENING COLONOSCOPY FLX DX W/COLLJ SPEC WHEN PFRMD Francie Laws PA-C [address] [place] [address] [facility] [address] [place] [address] Referral ID Status Reason Start Date Expiration Date V isits Requested Visits Authorized [id number] Closed Auto-Generate d Referral 08/25/2021 08/25/2022 1 1 [facility] for visit Narrative* Diagnostic Procedure Only (Routine) - Closed Specialty Diagnoses / Procedures Referred By Claire maldonado Referred To Contact [facility] Diagnoses Acute pain of left shoulder Procedures XR SHOULDER GENERAL 3V OR MORE AP/TRUE AP/OTHER LEFT RADEX SHOULDER COMPLETE MINIMUM 2 VIEWS Antonio Hui MD [address] [place] [address] [place] [id number] Referral ID Status Reason Start Date Expiration Date V isits Requested Visits Authorized [id number] Closed Auto-Generate d Referral 04/02/2024 05/02/2025 1 1 [facility] Chief Complaint and Reason for Visit Chief Complaint ABD PAIN GENERAL ILLNESS Chief Complaint ABD PAIN GENERAL ILLNESS SCREENING 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) Reason for Visit Climacteric Morbid obesity with body mass index of 40.0-49.9 Chief Complaint 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) LACERATION Reason for Visit Climacteric Urinary incontinence, mixed Encounter for routine gynecological examination Chief Complaint LACERATION Midurethral Sling, Cysto with bilateral ureteral c Chief Complaint Midurethral Sling, C ysto with bilateral ureteral c RUQ PAIN Chief Complaint Admit Date back August 06, 2024 8:23a m Chief Complaint Admit Date back August 06, 2024 8:23a m 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) September 18, 2024 2:24 pm Reason for Visit Admit Date Encounter for routine gynecological exam ination September 18, 2024 2:24pm Chief Complaint Admit Date back August 06, 2024 8:23a m 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) September 18, 2024 2:24 pm screening for [...] No June 27, 2021 11:23am Power of [place] Machine Feeder No June 27 11:23am Documents on File Type Date Recorded 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 Advance Directive(s) 09/22/2021 10:34 AM Documents on File Type Date Recorded 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 Advance Directive(s) 09/22/2021 10:34 AM Advance Directive Response Recorded Date/ Time Advance Directives No January 2:37pm Living Will No September 05, 2022 5 :15pm Power of [place] Machine Feeder No September 05, 2022 5:15pm Advance Directive Response Recorded Date/ Time Advance Directives No January 2:37pm Living Will No December 21 11:11am Power of [place] Machine Feeder No December 21, 2022 11:11am Advance Directive Response Recorded Date/ Time Advance Directives No January 1:37pm Living Will No March 28 9:43am Power of Tamale Machine Feeder No March 28, 2023 9:43am Advance Directive Response Recorded Date/ Time Do you have a Healthcare Power of Tamale Machine Feeder? No August 06, 2024 8:54am Advance Directives No January 2:37pm Reason for Referral Specialty Diagnoses / Procedures Referred By Claire t Referred To Contact General Surgery Diagnoses Screening for colon cancer Procedures CONSULT TO GENERAL SURGERY OFFICE/OUTPATIENT [facility] 60-74 MINUTES Antonio Hui MD [address] [place] [address] Referral ID Status Reason Start Date Expiration Date Visits Requested Visits Authorized [id number] Authorized PCP Requested Referral 08/04/2021 08/04/2022 1 1 Specialty Diagnoses / Procedures Referred By Contac t Referred To Contact Plastic Surgery Diagnoses Large breasts Procedures CONSULT TO PLASTIC SURGERY OFFICE/OUTPATIENT [facility] MDM 60-74 MINUTES Karla Ocampo APRN.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 [address] [place] [address] Referral ID Status Reason Start Date Expiration Date Visits Requested Visits Authorized [id number] Authorized PCP Requested Referral 08/26/2021 08/25/2022 1 1 Specialty Diagnoses / Procedures Referred By Contac t Referred To Contact Karla Ocampo APRN.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 [address] [place] [address] Referral ID Status Reason Start Date Expiration Date Visits Re quested Visits Authorized [id number] Closed 1 1 Referral ID Status Reason Start Date Expiration Date Visits Re quested Visits Authorized [id number] Closed 1 1 Specialty Diagnoses / Procedures Referred By Contac t Referred To Contact [facility] Diagnoses Acute pain of left shoulder Procedures CONSULT TO PHYSICAL THERAPY PHYSICAL THERAPY EVALUATION HIGH COMPLEX 45 MINS Antonio Hui MD [address] [place] [address] [facility] [place] [address] [place] [address] Referral ID Status Reason Start Date Expiration Date Visits Requested Visits Authorized [id number] Pending Review Auto-Generat ed Referral 04/02/2024 04/02/2025 1 1 Specialty Diagnoses / Procedures Referred By Contac t Referred To Contact XR IMAGING Diagnoses Acute pain of left shoulder Procedures XR SHOULDER GENERAL 3V OR MORE AP/TRUE AP/OTHER LEFT RADEX SHOULDER COMPLETE MINIMUM 2 VIEWS Antonio Hui MD [address] [place] [address] [place] [id number] Referral ID Status Reason Start Date Expiration Date V isits Requested Visits Authorized [id number] Closed Auto-Generate d Referral 04/02/2024 05/02/2025 1 [...] or prosecute any alcohol or drug abuse patient.[facility] the event this information is protected by the Federal Confidentiality of Alcohol and Drug Abuse Patient Records regulations: The Federal rules restrict any use of the information to criminally investigate or prosecute any alcohol or drug abuse patient.[facility] HospitalIn the event this information is protected by the Federal Confidentiality of Alcohol and Drug Abuse Patient Records regulations: The Federal rules restrict any use of the information to criminally investigate or prosecute any alcohol or drug abuse patient.[facility] HospitalIn the event this information is protected by the Federal Confidentiality of Alcohol and Drug Abuse Patient Records regulations: The Federal rules restrict any use of the information to criminally investigate or prosecute any alcohol or drug abuse patient.[facility] HospitalIn the event this information is protected by the Federal Confidentiality of Alcohol and Drug Abuse Patient Records regulations: The Federal rules restrict any use of the information to criminally investigate or prosecute any alcohol or drug abuse patient.[facility] HospitalIn the event this information is protected by the Federal Confidentiality of Alcohol and Drug Abuse Patient Records regulations: The Federal rules restrict any use of the information to criminally investigate or prosecute any alcohol or drug abuse patient.[facility] HospitalIn the event this information is protected by the Federal Confidentiality of Alcohol and Drug Abuse Patient Records regulations: The Federal rules restrict any use of the information to criminally investigate or prosecute any alcohol or drug abuse patient.[facility] HospitalIn the event this information is protected by the Federal Confidentiality of Alcohol and Drug Abuse Patient Records regulations: The Federal rules restrict any use of the information to criminally investigate or prosecute any alcohol or drug abuse patient.[facility] HospitalIn the event this information is protected by the Federal Confidentiality of Alcohol and Drug Abuse Patient Records regulations: The Federal rules restrict any use of the information to criminally investigate or prosecute any alcohol or drug abuse patient.[facility] HospitalIn the event this information is protected by the Federal Confidentiality of Alcohol and Drug Abuse Patient Records regulations: The Federal rules restrict any use of the information to criminally investigate or prosecute any alcohol or drug abuse patient.[facility] HospitalIn the event this information is protected by the Federal Confidentiality of Alcohol and Drug Abuse Patient Records regulations: The Federal rules restrict any use of the information to criminally investigate or prosecute any alcohol or drug abuse patient.[facility] HospitalIn the event this information is protected by the Federal Confidentiality of Alcohol and Drug Abuse Patient Records regulations: The Federal rules restrict any use of the information to criminally investigate or prosecute any alcohol or drug abuse patient.[facility] HospitalIn the event this information is protected by the Federal Confidentiality of Alcohol and Drug Abuse Patient Records regulations: The Federal rules restrict any use of the information to criminally investigate or prosecute any alcohol or drug abuse patient.[facility] HospitalIn the event this information is protected by the Federal Confidentiality of Alcohol and Drug Abuse Patient Records regulations: The Federal rules restrict any use of the information to criminally investigate or prosecute any alcohol or drug abuse patient.[facility] HospitalIn the event this information is protected by the Federal Confidentiality of Alcohol and Drug Abuse Patient Records regulations: The Federal rules restrict any use of the information to criminally investigate or prosecute any alcohol or drug abuse patient.[facility] HospitalIn the event this information is protected by the Federal Confidentiality of Alcohol and Drug Abuse Patient Records regulations: The Federal rules restrict any use of the information to criminally investigate or prosecute any alcohol or drug abuse patient.[facility] HospitalIn the event this information is protected by the Federal Confidentiality of Alcohol and Drug Abuse Patient Records regulations: The Federal rules restrict any use of the information to criminally investigate or prosecute any alcohol or drug abuse patient.[facility] HospitalIn the event this information is protected by the Federal Confidentiality of Alcohol and Drug Abuse Patient Records regulations: The Federal rules restrict any use of the information to criminally investigate or prosecute any alcohol or drug abuse patient.[facility] HospitalIn the event this information is protected by the Federal Confidentiality of Alcohol and Drug Abuse Patient Records regulations: The Federal rules restrict any use of the information to criminally investigate or prosecute any alcohol or drug abuse patient.[facility] HospitalIn the event this information is protected by the Federal Confidentiality of Alcohol and Drug Abuse Patient Records regulations: The Federal rules restrict any use of the information to criminally investigate or prosecute any alcohol or drug abuse patient.[facility] HospitalIn the event this information is protected by the Federal Confidentiality of Alcohol and Drug Abuse Patient Records regulations: The Federal rules restrict any use of the information to criminally investigate or prosecute any alcohol or drug abuse patient.[facility] HospitalIn the event this information is protected by the Federal Confidentiality of Alcohol and Drug Abuse Patient Records regulations: The Federal rules restrict any use of the information to criminally investigate or prosecute any alcohol or drug abuse patient.[facility] HospitalIn the event this information is protected by the Federal Confidentiality of Alcohol and Drug Abuse Patient Records regulations: The Federal rules restrict any use of the information to criminally investigate or prosecute any alcohol or drug abuse patient.[facility] HospitalIn the event this information is protected by the Federal Confidentiality of Alcohol and Drug Abuse Patient Records regulations: The Federal rules restrict any use of the information to criminally investigate or prosecute any alcohol or drug abuse patient.[facility] HospitalIn the event this information is protected by the Federal Confidentiality of Alcohol and Drug Abuse Patient Records regulations: The Federal rules restrict any use of the information to criminally investigate or prosecute any alcohol or drug abuse patient.[facility] HospitalIn the event this information is protected by the Federal Confidentiality of Alcohol and Drug Abuse Patient Records regulations: The Federal rules restrict any use of the information to criminally investigate or prosecute any alcohol or drug abuse patient.[facility] HospitalIn the event this information is protected by the Federal Confidentiality of Alcohol and Drug Abuse Patient Records regulations: The Federal rules restrict any use of the information to criminally investigate or prosecute any alcohol or drug abuse patient.[facility] HospitalIn the event this information is protected by the Federal Confidentiality of Alcohol and Drug Abuse Patient Records regulations: The Federal rules restrict any use of the information to criminally investigate or prosecute any alcohol or drug abuse patient.[facility] HospitalIn the event this information is protected by the Federal Confidentiality of Alcohol and Drug Abuse Patient Records regulations: The Federal rules restrict any use of the information to criminally investigate or prosecute any alcohol or drug abuse patient.[facility] HospitalIn the event this information is protected by the Federal Confidentiality of Alcohol and Drug Abuse Patient Records regulations: The Federal rules restrict any use of the information to criminally investigate or prosecute any alcohol or drug abuse patient.[facility] HospitalIn the event this information is protected by the Federal Confidentiality of Alcohol and Drug Abuse Patient Records regulations: The Federal rules restrict any use of the information to criminally investigate or prosecute any alcohol or drug abuse patient.[facility] HospitalIn the event this information is protected by the Federal Confidentiality of Alcohol and Drug Abuse Patient Records regulations: The Federal rules restrict any use of the information to criminally investigate or prosecute any alcohol or drug abuse patient.[facility] HospitalIn the event this information is protected by the Federal Confidentiality of Alcohol and Drug Abuse Patient Records regulations: The Federal rules restrict any use of the information to criminally investigate or prosecute any alcohol or drug abuse patient.[facility] HospitalIn the event this information is protected by the Federal Confidentiality of Alcohol and Drug Abuse Patient Records regulations: The Federal rules restrict any use of the information to criminally investigate or prosecute any alcohol or drug abuse patient.[facility] HospitalIn the event this information is protected by the Federal Confidentiality of Alcohol and Drug Abuse Patient Records regulations: The Federal rules restrict any use of the information to criminally investigate or prosecute any alcohol or drug abuse patient.[facility] HospitalIn the event this information is protected by the Federal Confidentiality of Alcohol and Drug Abuse Patient Records regulations: The Federal rules restrict any use of the information to criminally investigate or prosecute any alcohol or drug abuse patient.[facility] HospitalIn the event this information is protected by the Federal Confidentiality of Alcohol and Drug Abuse Patient Records regulations: The Federal rules restrict any use of the information to criminally investigate or prosecute any alcohol or drug abuse patient.[facility] HospitalIn the event this information is protected by the Federal Confidentiality of Alcohol and Drug Abuse Patient Records regulations: The Federal rules restrict any use of the information to criminally investigate or prosecute any alcohol or drug abuse patient.[facility] the event this information is protected by the Federal Confidentiality of Alcohol and Drug Abuse Patient Records regulations: The Federal rules restrict any use of the information to criminally investigate or prosecute any alcohol or drug abuse patient.[facility] HospitalIn the event this information is protected by the Federal Confidentiality of Alcohol and Drug Abuse Patient Records regulations: The Federal rules restrict any use of the information to criminally investigate or prosecute any alcohol or drug abuse patient.[facility] HospitalIn the event this information is protected [...] or prosecute any alcohol or drug abuse patient.[facility] HospitalIn the event this information is protected by the Federal Confidentiality of Alcohol and Drug Abuse Patient Records regulations: The Federal rules restrict any use of the information to criminally investigate or prosecute any alcohol or drug abuse patient.[facility] HospitalIn the event this information is protected by the Federal Confidentiality of Alcohol and Drug Abuse Patient Records regulations: The Federal rules restrict any use of the information to criminally investigate or prosecute any alcohol or drug abuse patient.[facility] HospitalIn the event this information is protected by the Federal Confidentiality of Alcohol and Drug Abuse Patient Records regulations: The Federal rules restrict any use of the information to criminally investigate or prosecute any alcohol or drug abuse patient.[facility] HospitalIn the event this information is protected by the Federal Confidentiality of Alcohol and Drug Abuse Patient Records regulations: The Federal rules restrict any use of the information to criminally investigate or prosecute any alcohol or drug abuse patient.[facility] HospitalIn the event this information is protected by the Federal Confidentiality of Alcohol and Drug Abuse Patient Records regulations: The Federal rules restrict any use of the information to criminally investigate or prosecute any alcohol or drug abuse patient.[facility] HospitalIn the event this information is protected by the Federal Confidentiality of Alcohol and Drug Abuse Patient Records regulations: The Federal rules restrict any use of the information to criminally investigate or prosecute any alcohol or drug abuse patient.[facility] HospitalIn the event this information is protected by the Federal Confidentiality of Alcohol and Drug Abuse Patient Records regulations: The Federal rules restrict any use of the information to criminally investigate or prosecute any alcohol or drug abuse patient.[facility] HospitalIn the event this information is protected by the Federal Confidentiality of Alcohol and Drug Abuse Patient Records regulations: The Federal rules restrict any use of the information to criminally investigate or prosecute any alcohol or drug abuse patient.[facility] HospitalIn the event this information is protected by the Federal Confidentiality of Alcohol and Drug Abuse Patient Records regulations: The Federal rules restrict any use of the information to criminally investigate or prosecute any alcohol or drug abuse patient.[facility] HospitalIn the event this information is protected by the Federal Confidentiality of Alcohol and Drug Abuse Patient Records regulations: The Federal rules restrict any use of the information to criminally investigate or prosecute any alcohol or drug abuse patient.[facility] HospitalIn the event this information is protected by the Federal Confidentiality of Alcohol and Drug Abuse Patient Records regulations: The Federal rules restrict any use of the information to criminally investigate or prosecute any alcohol or drug abuse patient.[facility] HospitalIn the event this information is protected by the Federal Confidentiality of Alcohol and Drug Abuse Patient Records regulations: The Federal rules restrict any use of the information to criminally investigate or prosecute any alcohol or drug abuse patient.[facility] HospitalIn the event this information is protected by the Federal Confidentiality of Alcohol and Drug Abuse Patient Records regulations: The Federal rules restrict any use of the information to criminally investigate or prosecute any alcohol or drug abuse patient.[facility] HospitalIn the event this information is protected by the Federal Confidentiality of Alcohol and Drug Abuse Patient Records regulations: The Federal rules restrict any use of the information to criminally investigate or prosecute any alcohol or drug abuse patient.[facility] HospitalIn the event this information is protected by the Federal Confidentiality of Alcohol and Drug Abuse Patient Records regulations: The Federal rules restrict any use of the information to criminally investigate or prosecute any alcohol or drug abuse patient.[facility] HospitalIn the event this information is protected by the Federal Confidentiality of Alcohol and Drug Abuse Patient Records regulations: The Federal rules restrict any use of the information to criminally investigate or prosecute any alcohol or drug abuse patient.[facility] HospitalIn the event this information is protected by the Federal Confidentiality of Alcohol and Drug Abuse Patient Records regulations: The Federal rules restrict any use of the information to criminally investigate or prosecute any alcohol or drug abuse patient.[facility] Reason for Visit (unrecogniz ed section [...] Procedures CONSULT TO GENERAL SURGERY OFFICE/OUTPATIENT [facility] 60-74 MINUTES Antonio Hui MD [address] [place] [address] Referral ID Status Reason Start Date Expiration Date V isits Requested Visits Authorized [id number] Closed PCP Requested Referral 08/04/2021 08/04/2022 1 [...] Care Teams (unrecognized sec tion and content) Card Stripper Relationship Specialty Start Date End Date Antonio Hui MD [address] [place], [place] [id number] PCP - [facility] 04/29/16 Card Stripper Relationship Specialty Start Date End Date Antonio Hui MD [address] [place] [address] PCP - General Family Practice 04/29/16 Card Stripper Relationship Specialty Start Date End Date Antonio Hui MD [address] [place] [address] PCP - [facility] 04/29/16 Card Stripper Relationship Specialty Start Date End Date Antonio Hui MD [address] [place] [address] PCP - General Family Practice 04/29/16 Card Stripper Relationship Specialty Start Date End Date Antonio Hui MD [address] [facility] [place] [address] PCP - General Family Practice 04/29/16 Card Stripper Relationship Specialty Start Date End Date Antonio Hui MD [address] [facility] [place] [address] PCP - General Family Practice 04/29/16 Card Stripper Relationship Specialty Start Date End Date Antonio Hui MD [address] [facility] [place] [address] PCP - General Family Practice 04/29/16 Card Stripper Relationship Specialty Start Date End Date Antonio Hui MD [address] [facility] [place] [address] PCP - General Family Practice 04/29/16 Card Stripper Relationship Specialty Start Date End Date Antonio Hui MD [address] [facility] [place] [address] PCP - General Family Practice 04/29/16 Card Stripper Relationship Specialty Start Date End Date Antonio Hui MD [address] [facility] [place] [address] PCP - General Family Medicine 04/29/16 Card Stripper Relationship Specialty Start Date End Date Antonio Hui MD [address] [facility] [place] [address] PCP - General Family Medicine 04/29/16 Card Stripper Relationship Specialty Start Date End Date Antonio Hui MD [address] [facility] [place] [address] PCP - General Family Medicine 04/29/16 Card Stripper Relationship Specialty Start Date End Date Antonio Hui MD [address] [facility] [place] [address] PCP - General Family Medicine 04/29/16 Card Stripper Relationship Specialty Start Date End Date Antonio Hui MD [address] [facility] [place] [address] PCP - General Family Medicine 04/29/16 Card Stripper Relationship Specialty Start Date End Date Antonio Hui MD [address] [facility] [place] [address] PCP - General Family Medicine 04/29/16 Card Stripper Relationship Specialty Start Date End Date Antonio Hui MD [address] [facility] [place] [address] PCP - General Family Medicine 04/29/16 Card Stripper Relationship Specialty Start Date End Date Antonio Hui MD [address] [facility] [place] [address] PCP - General Family Medicine 04/29/16 Card Stripper Relationship Specialty Start Date End Date Antonio Hui MD [address] [facility] [place] [address] PCP - General Family Medicine 04/29/16 Card Stripper Relationship Specialty Start Date End Date Antonio Hui MD [address] [facility] [place] [address] PCP - General Family Medicine 04/29/16 Card Stripper Relationship Specialty Start Date End Date Antonio Hui MD [address] [facility] [place] [address] PCP - General Family Medicine 04/29/16 Card Stripper Relationship Specialty Start Date End Date Antonio Hui MD [address] [facility] [place] [address] PCP - General Family Medicine 04/29/16 Team Status: Active Member Role Status Dates Dr. Buddy Hui MD Family Provider Active Dr. Buddy Hui MD Primary Care Provider Acti ve Team Status: Inactive Member Role Status Dates Dr. Buddy Hui MD Primary Care Provider, Ref erring Provider Active Bessy Alfonso STORAGE ARCHITECT, STORAGE ARCHITECT-C Attending Provider Active Team Status: Inactive Member Role Status Dates Dr. Buddy Hui MD Primary Care Provider Acti ve Dr. Richie Lai DO Emergency Provider Active Card Stripper Relationship Specialty Start Date End Date Antonio Hui MD [address] [facility] [place] [address] PCP - General Family Medicine 04/29/16 Team Status: Inactive Member Role Status Dates Dr. Buddy Hui MD Primary Care Provider Acti ve Dr. Richie Lai DO Attending Provider, Emergency Provide r Active Team Status: Inactive Member Role Status Dates Dr. Buddy Hui MD Primary Care Provider Acti ve Dr. Leisa Christiansen MD Attending Provider, Referring P [facility] Active Card Stripper Relationship Specialty Start Date End Date Antonio Hui MD [address] [facility], [place] [id number] PCP - General Family Medicine 04/29/16 Card Stripper Relationship Specialty Start Date End Date Antonio Hui MD [address] [place] [address] PCP - General Family Medicine 04/29/16 Card Stripper Relationship Specialty Start Date End Date Antonio Hui MD [address] [facility] [address] PCP - General Family Medicine 04/29/16 Card Stripper Relationship Specialty Start Date End Date Antonio Hui MD [address] [facility] [place] [address] PCP - General Family Medicine 04/29/16 Card Stripper Relationship Specialty Start Date End Date Antonio Hui MD [address] [facility] [place] [place] [address] PCP - General Family Medicine 04/29/16 Card Stripper Relationship Specialty Start Date End Date Antonio Hui MD [address] [facility] [place] [place] [address] PCP - General Family Medicine 04/29/16 Card Stripper Relationship Specialty Start Date End Date Antonio Hui MD [address] [facility] [place] [address] PCP - General Family Medicine 04/29/16 Card Stripper Relationship Specialty Start Date End Date Antonio Hui MD [address] [facility] [place] [address] PCP - General Family Medicine 04/29/16 Card Stripper Relationship Specialty Start Date End Date Antonio Hui MD [address] [facility] [address] PCP - General Family Medicine 04/29/16 Card Stripper Relationship Specialty Start Date End Date Antonio Hui MD [address] [facility] [place] [address] PCP - General Family Medicine 04/29/16 Karla Ocampo APRN.CNP [address] [facility] [address] Turret Lathe Tender Family Medicine 02/04/24 Card Stripper Relationship Specialty Start Date End Date Antonio Hui MD [address] [facility] [address] PCP - General Family Medicine 04/29/16 Podlogar, Karla, RACE CAR MECHANIC.VENT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 [address] [place] [address] [employer] Lathe Tender Family Medicine 02/04/24 Card Stripper Relationship Specialty Start Date End Date Antonio Hui MD [address] [place] [address] PCP - General Family Medicine 04/29/16 Podlogar, Karla RACE CAR MECHANIC.VENT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 [address] [place] [address] [facility]/24 Card Stripper Relationship Specialty Start Date End Date Antonio Hui MD [address] [place] [address] PCP - General Family Medicine 04/29/16 Podlogar, Karla, RACE CAR MECHANIC.VENT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 [address] [place] [address] [facility] 02/04/24 Card Stripper Relationship Specialty Start Date End Date Antonio Hui MD [address] [place] [address] PCP - General Family Medicine 04/29/16 Podlogar, Karla, RACE CAR MECHANIC.VENT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 [address] [place] [address] [facility] 02/04/24 Card Stripper Relationship Specialty Start Date End Date Antonio Hui MD [address] [place] [address] PCP - General Family Medicine 04/29/16 Podlogar, Karla, RACE CAR MECHANIC.VENT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 [address] [place] [address] Turret Lathe Tender Family Medicine 02/04/24 Card Stripper Relationship Specialty Start Date End Date Antonio Hui MD [address] [place] [address] PCP - General Family Medicine 04/29/16 Podlogar, Karla, RACE CAR MECHANIC.VENT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 [address] [place] [address] [facility] 02/04/24 Card Stripper Relationship Specialty Start Date End Date Antonio Hui MD [address] [place] [address] PCP - General Family Medicine 04/29/16 Podlogar, Karla, RACE CAR MECHANIC.VENT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 [address] [place] [address] [facility] 02/04/24 Card Stripper Relationship Specialty Start Date End Date Antonio Hui MD [address] [place] [address] PCP - General Family Medicine 04/29/16 Podlogar, Karla, RACE CAR MECHANIC.VENT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 [address] [place] [address] [facility] 02/04/24 Card Stripper Relationship Specialty Start Date End Date Antonio Hui MD [address] [place] [address] PCP - General Family Medicine 04/29/16 PodlogarKarla RACE CAR MECHANIC.VENT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 [address] [place], [place] [address] [facility] 02/04/24 Card Stripper Relationship Specialty Start Date End Date Antonio Hui MD [address] [place], [place] [address] PCP - General Family Medicine 04/29/16 PodlogarKarla RACE CAR MECHANIC.VENT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 [address] [place] [address] [facility] 02/04/24 Eufemia Norris RACE CAR MECHANIC.VENT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 [address] [place] [address] [facility] 05/11/24 05/20/24 Eufemia Norris, RACE CAR MECHANIC.VENT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 [address] [place] [address] [facility] 05/21/24 Card Stripper Relationship Specialty Start Date End Date Antonio Hui MD [address] [place] [address] PCP - General Family Medicine 04/29/16 PodlogarKarla RACE CAR MECHANIC.VENT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 [address] [place] [address] [facility] Medicine 02/04/24 Eufemia Norirs APRN.VENT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 [address] [place] [address] [facility] 05/21/24 Team Status: Active Member Role Status Dates Dr. Buddy Hui MD Primary Care Provider Acti ve Team Status: Inactive Member Role Status Dates Dr. Buddy Hui MD Primary Care Provider Acti ve Start: August 06, 2024 End: August 06, 2024 Dr. Raul Abreu DO Emergency Provider Activ e Start: August 06, 2024 End: August 06, 2024 Card Stripper Relationship Specialty Start Date End Date Antonio Hui MD [address] [facility] [place] [address] PCP - General Family Medicine 04/29/16 PodlogarKarla RACE CAR MECHANIC.VENT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 [address] [place] [address] [facility] 02/04/24 Eufemia Norris RACE CAR MECHANIC.VENT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 [address] [place] [address] [facility] 08/09/24 Card Stripper Relationship Specialty Start Date End Date Antonio Hui MD [address] [place] [address] PCP - General Family Medicine 04/29/16 PodlogarKarla, RACE CAR MECHANIC.VENT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 [address] [facility] [place] [address] Turret Lathe Tender Family Medicine 02/04/24 Eufemia Norris RACE CAR MECHANIC.VENT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 [address] [place] [address] [facility] Medicine 08/09/24 Card Stripper Relationship Specialty Start Date End Date Antonio Hui MD [address] [place], [place] [address] PCP - General Family Medicine 04/29/16 Karla Ocampo APRN.VENT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 [address] [place], [place] [address] [facility] 02/04/24 Eufemia Norris, RACE CAR MECHANIC.VENT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 [address] [place], [place] [address] [facility] 08/09/24 Team Status: Active Member Role/Relationship Status [...] 2024 End: September 18, 2024 Bessy Alfonso STORAGE ARCHITECT, STORAGE ARCHITECT-C Attending Provider Active Start: September 18, 2024 End: September 18, 2024 Team Status: Inactive Member Role/Relationship Status Dates Dr. Buddy Hui MD Primary Care Provider Acti ve Start: September 18, 2024 End: September 18, 2024 Bessy Alfonso STORAGE ARCHITECT, STORAGE ARCHITECT-C Attending Provider Active Start: September 18, 2024 End: September 18, 2024 Bessy Alfonso STORAGE ARCHITECT, STORAGE ARCHITECT-C Referring Provider Active Start: September 18, 2024 End: September 18, 2024 INFORMATION SOURCE (unrecogn ized section and content) DATE CREATED AUTHOR 09/19/2021 [facility] dical Specialist DATE CREATED AUTHOR AUTHOR'S ORGANIZ ATION 09/01/2024 [facility] DATE CREATED AUTHOR AUTHOR'S ORGANIZ ATION 09/25/2024 [facility] DATE CREATED AUTHOR AUTHOR'S ORGANIZ ATION 10/12/2024 [facility] FOR RECORDS PERTAINING TO PATIENTS WHO [...] BE BASED ON THE PRIMARY CLINICAL RECORDS. [facility] [employer] provides no warranty or guarantee of the accuracy or completeness of information in this document.
[2024-10-28 15:47] LABS: Magnesium 2.3 mg/dL (1.5-2.2)
[2024-10-28] MEDS: Lactated Ringers 1,000 ML 100 ML IV (16:25)
--- NOTE | 2024-10-28 17:04 | EX.PCM.CON.S ---
Assessment & Plan Assessment/Plan (1) Colitis: PLAN: Distal transverse colon/splenic flexure (2) Appendicolith: PLAN: Plan Discussed with patient that her CT would be consistent with colitis possible ischemic colitis due to the splenic flexure location. Patient did get Zosyn IV in the ER. She does have appendicolith but is at the distal aspect of the appendix no inflammation is seen. Patient's pain mainly periumbilical and upper abdomen on exam. Patient is getting a delayed CT with p.o. contrast as she did have some occasional sharp pain on the right side which did resolve. Patient did have a lactic acidosis but also had explosive diarrhea (previously did not have diarrhea) in the ER and got 2 L IV fluids and lactic acidosis went from 2.5-2.7. Patient is getting additional IV fluids and is getting a repeat lactic acid. addendum: repeat CT called colitis no signs of appendicitis; lactic recheck <1 after 3.9 with additional bolus given. Rukhsana Cao M.D. Pager: [phone] [facility] [address] [place] [address], [facility], [address] [place] [address] Office: [phone] HPI Consult Data Date of Consult: 10/29/24 HPI Narrative HPI Narrative: FANTASMA KENT, is a 54 F who presents to the ER due to abdominal pain by the umbilicus started about 3 AM this morning initially thought it was gas pain. Patient also had nausea vomiting and had explosive diarrhea in the ER. Patient white blood count of 20.5 CT abdomen pelvis called transverse colitis as well as appendicolith with no stranding around the appendix. Patient denies any sick contacts or travel or recent antibiotics. Patient denies any previous history of abdominal pain similar. [facility] Medical History JENNIFFER (stress urinary incontinence, female) Wears glasses Alcohol use Diabetes Bladder disease High cholesterol Back pain Dietary restriction Gastric reflux Former smoker History of echocardiogram History of stress test Endometriosis Hyperlipidemia Hypertension Home Medications ?Medication ?Instructions ?Recorded ?Last Taken ?Type aspirin 81 mg chewable tablet 81 mg PO DAILY@0800 06/05/13 12/15/22 History cholecalciferol (vitamin D3) 25 1,000 unit PO DAILY 06/05/13 Unknown History mcg (1,000 unit) capsule calcium carbonate 300 mg PO BID 02/20/16 Unknown History glucosamine sulfate 250 1 ea PO BID 02/20/16 Unknown History mg-chondroitin sulfate A 200 mg capsule pantoprazole 40 mg tablet,delayed 40 mg PO DAILY 02/20/16 12/23/22 History release cetirizine 10 mg capsule 10 mg PO DAILY PRN Allergies 10/22/18 Unknown History meloxicam 15 mg tablet 15 mg PO DAILY 12/21/22 12/15/22 History epinephrine 0.3 mg/0.3 mL 0.3 mg IM Q4H 03/28/23 Unknown History injection, auto-injector hydrochlorothiazide 12.5 mg tablet 12.5 mg PO DAILY 03/28/23 Unknown History losartan 50 mg tablet 50 mg PO BID 03/28/23 Unknown History metformin 500 mg tablet 500 mg PO BID 03/28/23 Unknown History simvastatin 10 mg tablet 10 mg PO DAILY 03/28/23 Unknown History tirzepatide 12.5 mg/0.5 mL 15 mg subcut QWEEK 09/12/23 Unknown History subcutaneous pen injector (Lucasundinesh) venlafaxine 75 mg capsule,extended 75 mg PO QHS #90 caps 09/18/24 Unknown Rx release 24 hr Allergy/AdvReac Type Severity Reaction Status Date / Time codeine Allergy Anaphylaxis Verified 10/28/24 15:47 Iodinated Contrast Media (iv Allergy Anaphylaxis Verified 10/28/24 15:47 contrast dye) shellfish derived Allergy Nausea/Vom/ Verified 10/28/24 15:47 Diarrhea Sulfa (Sulfonamide Allergy Anaphylaxis Verified 10/28/24 15:47 Antibiotics) pineapple (Pineapple) AdvReac Nausea/Vom/ Verified 10/28/24 15:47 Diarrhea squash AdvReac Nausea/Vom/ Verified 10/28/24 15:47 Diarrhea walnut AdvReac Nausea/Vom/ Verified 10/28/24 15:47 Diarrhea Family History Father Myocardial infarction Hypertension Mother Heart disease Hypertension Grandmother Heart disease Hypertension Surgical History S/P panniculectomy Hx of breast reduction, elective Hx of arthroscopy of right knee Labral tear of left hip joint History of lateral meniscus repair of left knee H/O laparoscopy H/O: hysterectomy Plantar fascia syndrome Social History Smoking Status: Former smoker alcohol intake: current details: social substance use type: does not use caffeine: Yes frequency: 3-4 times per week seatbelt use: always do you feel safe at home: Yes additional social history: seperated ROS Constitutional Constitutional: Reports anorexia Eyes Eyes: Denies loss of vision ENT HEENT: Denies dysphagia Cardiovascular Cardiovascular: Denies chest pain Respiratory/Chest Respiratory/Chest: Denies productive cough Gastrointestinal Gastrointestinal: Reports abdominal pain, diarrhea and nausea; Denies hematochezia Genitourinary Genitourinary: Denies hematuria Musculoskeletal Musculoskeletal: Denies joint swelling Integumentary Integumentary: Denies jaundice Neurologic Neurologic: Denies loss of vision Psychiatric Psychiatric: Denies anxiety Hematologic/Lymphatic Hematologic/Lymphatic: Denies easy bleeding Physical Exam Const alert, oriented x3 and no apparent distress HEENT normocephalic and head/scalp atraumatic Resp normal respiratory effort Cardio regular rate GI soft to palpation; Negative for non-distended GI Narrative: Equivocal rebound, well-healed panniculectomy incision Palpation: tender epigastric, RLQ, LUQ, RUQ and periumbilical; Negative for guarding Extremity no clubbing, cyanosis or edema Neuro CN's II-XII intact bilaterally Psych mental status grossly normal Lab / Micro Data 10/29/24 04:05 10/29/24 04:05 Labs: Laboratory Results - last 24 hr 10/28/24 09:57: WBC 20.5 H, RBC 4.49, Hgb 14.2, Hct 40.3, MCV 89.8, MCH 31.6, MCHC 35.2, RDW Std Deviation 40.9, RDW Coeff of Delia 12.5, Plt Count 315, MPV 10.2, Immature Gran % (Auto) 0.900, Neut % (Auto) 85.1 H, Lymph % (Auto) 6.1 L, [place] % (Auto) 7.7, Eos % (Auto) 0.0, Baso % (Auto) 0.2, Absolute Neuts (auto) 17.4 H, Absolute Lymphs (auto) 1.24, Nucleated RBC % 0, Platelet Estimate ADEQUATE, Sodium 142, Potassium 3.8, Chloride 103, Carbon Dioxide 22.5, Anion Gap 16 H, BUN 20 H, Creatinine 0.62 L, Estim Creat Clear Calc 121.82, Est GFR (MDRD) Non-Af 104, BUN/Creatinine Ratio 32.5 H, Glucose 128 H, Calcium 9.6, Phosphorus 4.6 H, Magnesium 2.3 H, Total Bilirubin 0.46, AST 18, ALT 13, Alkaline Phosphatase 142 H, Total Protein 7.3, Albumin 4.5, Globulin 2.8, Albumin/Globulin Ratio 1.6, Lipase 45 10/28/24 10:13: Lactic Acid 2.5 H* 10/28/24 11:09: Urine Color Yellow, Urine Clarity Clear, Urine pH 5.0, Ur Specific Samson 1.020, Urine Protein 15 H, Urine Glucose (UA) Normal, Urine Ketones 5 H, Urine Occult Blood 10 H, Urine Nitrite Negative, Urine Bilirubin 1 H, Urine Urobilinogen 1 H, Ur Leukocyte Esterase 500 H, Urine RBC 0 SEEN, Urine WBC 0-5 SEEN, Ur Squamous Epith Cells 0-5 SEEN, Urine Bacteria 0 SEEN, Urine Mucus 0 SEEN 10/28/24 13:31: Lactic Acid 2.7 H* Imaging Radiology Impression Abdomen/Pelvis CT 10/28/24 10:31 IMPRESSION: 1. Probable appendicolith, as described above. There are no CT findings of acute appendicitis. 2. Subtle inflammatory changes in the distal transverse colon, suggestive of mild colitis. 3. Postsurgical changes at bilateral inframammary folds, anterior abdominal wall. Reading Location: [facility] Charges/Coding Visit Charges Inpatient E&M: 88165 Init Hosp L3
[2024-10-28] MEDS: Pantoprazole Sodium 40 MG in 0.9% Normal Saline (100mL MB+) 100 ML 330 MG IV (17:13)
[2024-10-28 17:34] LABS: Reflex Lactate? Y
[2024-10-28] MEDS: 0.9% Saline Lock 10 ML Syringe IV (17:58)
--- NOTE | 2024-10-28 18:00 | CT_ITS ---
PROCEDURE: ABDOMEN/PEL W ORAL CONT ONLY 10/28/2024 REASON FOR EXAM: ACUTE ABD PAIN, N/V/D TECHNIQUE: Procedure Code: [id number] Modality: CT Procedure: ABDOMEN/PEL W ORAL CONT ONLY Noncontrast technique limits evaluation of the abdominal and pelvic viscera. Coronal and Sagittal reconstruction series were provided. One or more dose reduction techniques were used (e.g., Automated exposure control, adjustment of the mA and/or kV according to patient size, use of iterative reconstruction technique). RADIATION DOSE SUMMARY: CTDlvol: 16 mGy DLP: 881 mGycm COMPARISON: 831 25 earlier the same day FINDINGS: Normal noncontrast appearance of the liver, spleen and pancreas. No renal calculi. No hydronephrosis. Oral contrast has been administered. There is no bowel obstruction. There is subtle infiltration of the fat surrounding the proximal left colon and splenic flexure compatible with colitis. In the right lower quadrant there are no findings of appendicitis. CT/Abdomen/Pel W ORAL Cont Only IMPRESSION: Negative for obstruction. Colitis. Similar findings to prior Reading [facility]
[2024-10-28] MEDS: Cefepime HCl 2 GM in 0.9% Normal Saline (100mL MB+) 100 ML IV (21:21)
[2024-10-28] MEDS: metroNIDAZOLE 500 MG/100 ML BAG 100 MG IV (21:33)
[2024-10-28 21:54] LABS: Reflex Lactate? Y
[2024-10-28 23:55] LABS: Potassium 3.4 mmol/L (3.3-5.1)
[2024-10-29] VITALS (7 sets, daily range): BP systolic 117–158; BP diastolic 58–83; PULSE 80–98; RESP 16–18; TEMP 36.6–37.1; O2SAT 96–98; BMI 32.1
[2024-10-29] MEDS: Lactated Ringers 1,000 ML 100 ML IV (03:25)
[2024-10-29 04:47] LABS: Hematocrit 32.3 % (37-47); Hemoglobin 11.0 g/dL (12.0-15.0); Immature Granulocytes Count 0.060 X10^3/uL (0.0-0.0); Mean Corp Hgb Conc 34.1 g/dL (32-36); Mean Corpuscular Volume 91.2 fL (81-99); Mean Platelet Vol. 10.5 fl (6.2-12.0); NRBC Flagged by Analyzer 0 % (0-5); Platelet Count 234 K/mm3 (150-450); RBC Distribution Width CV 12.7 % (11.6-14.6); RBC Distribution Width SD 42.6 fl (35.1-43.9); Red Blood Count 3.54 M/mm3 (4.2-5.4); White Blood Count 10.4 K/mm3 (4.4-11.0)
[2024-10-29] MEDS: Cefepime HCl 2 GM in 0.9% Normal Saline (100mL MB+) 100 ML IV ×3 (05:12→21:02)
[2024-10-29] MEDS: metroNIDAZOLE 500 MG/100 ML BAG 100 MG IV ×3 (05:12→22:24)
[2024-10-29 05:31] LABS: Anion Gap 11 (5-15); BUN 9 mg/dL (4-19); BUN/Creat Ratio 19.9 RATIO (10-20); Calcium,Total 7.7 mg/dL (7.6-11.0); Carbon Dioxide 20.9 mmol/L (21.0-32.0); Chloride 107 mmol/L (98-108); Estimated Creatinine Clearance 159.86 ml/min (50-250); Glucose 99 mg/dL (70-99); Potassium 3.2 mmol/L (3.3-5.1)
[2024-10-29] MEDS: Potassium Chloride Oral Tablet 20 MEQ 40 MEQ PO (08:28)
--- NOTE | 2024-10-29 10:10 | PN.SURG_ITS ---
Subjective Subjective Patient's repeat CT abdomen pelvis showed colitis no signs of appendicitis. Lactic acid did come down to less than 1 after the previous rise to 3.9 Objective Data Objective Data Vital Signs: Vital Signs Temp Pulse Resp BP Pulse Ox O2 Del Method 98.6 F 85 18 150/80 H 98 Room Air 10/29/24 08:26 10/29/24 08:26 10/29/24 08:26 10/29/24 08:26 10/29/24 08:26 10/29/24 08:37 Oxygen Delivery Method Room Air Weight: 204 lb 12.951 oz Body Mass Index (BMI) 32.1 Intake & Output: Intake and Output for Last 24 Hours 10/27/24 10/28/24 10/29/24 23:59 23:59 23:59 Intake Total 4900 / 4900 1200 / 1200 Output Total 100 / 100 Balance 4800 / 4800 1200 / 1200 Lab / Micro Data 10/29/24 04:05 10/29/24 04:05 Labs: Laboratory Results - last 24 hr 10/28/24 09:57: WBC 20.5 H, RBC 4.49, Hgb 14.2, Hct 40.3, MCV 89.8, MCH 31.6, MCHC 35.2, RDW Std Deviation 40.9, RDW Coeff of Delia 12.5, Plt Count 315, MPV 10.2, Immature Gran % (Auto) 0.900, Neut % (Auto) 85.1 H, Lymph % (Auto) 6.1 L, [place] % (Auto) 7.7, Eos % (Auto) 0.0, Baso % (Auto) 0.2, Absolute Neuts (auto) 17.4 H, Absolute Lymphs (auto) 1.24, Nucleated RBC % 0, Platelet Estimate ADEQUATE, Sodium 142, Potassium 3.8, Chloride 103, Carbon Dioxide 22.5, Anion Gap 16 H, BUN 20 H, Creatinine 0.62 L, Estim Creat Clear Calc 121.82, Est GFR (MDRD) Non-Af 104, BUN/Creatinine Ratio 32.5 H, Glucose 128 H, Calcium 9.6, P hosphorus 4.6 H, Magnesium 2.3 H, Total Bilirubin 0.46, AST 18, ALT 13, Alkaline Phosphatase 142 H, Total Protein 7.3, Albumin 4.5, Globulin 2.8, Albumin/Globulin Ratio 1.6, Lipase 45 10/28/24 10:13: Lactic Acid 2.5 H* 10/28/24 11:09: Urine Color Yellow, Urine Clarity Clear, Urine pH 5.0, Ur Specific Carbon 1.020, Urine Protein 15 H, Urine Glucose (UA) Normal, Urine Ketones 5 H, Urine Occult Blood 10 H, Urine Nitrite Negative, Urine Bilirubin 1 H, Urine Urobilinogen 1 H, Ur Leukocyte Esterase 500 H, Urine RBC 0 SEEN, Urine WBC 0-5 SEEN, Ur Squamous Epith Cells 0-5 SEEN, Urine Bacteria 0 SEEN, Urine Mucus 0 SEEN 10/28/24 13:31: Lactic Acid 2.7 H* 10/28/24 16:24: POC Glucose 103 10/28/24 17:45: Lactic Acid 3.9 H* 10/28/24 21:38: POC Glucose 91 10/28/24 23:10: Potassium 3.4, Lactic Acid < 1.0 10/29/24 04:05: WBC 10.4, RBC 3.54 L, Hgb 11.0 L, Hct 32.3 L, MCV 91.2, MCH 31.1, MCHC 34.1, RDW Std Deviation 42.6, RDW Coeff of Delia 12.7, Plt Count 234, MPV 10.5, Immature Gran % (Auto) 0.600, Neut % (Auto) 73.0 H, Lymph % (Auto) 16.7 L, [place] % (Auto) 8.8, Eos % (Auto) 0.7, Baso % (Auto) 0.2, Absolute Neuts (auto) 7.6, Absolute Lymphs (auto) 1.73, Nucleated RBC % 0, Sodium 140, P otassium 3.2 L, Chloride 107, Carbon Dioxide 20.9 L, Anion Gap 11, BUN 9, C reatinine 0.46 L, Estim Creat Clear Calc 159.86, Est GFR (MDRD) Non-Af 112, BUN/Creatinine Ratio 19.9, Glucose 99, Hemoglobin A1c 5.1, Calcium 7.7 10/29/24 05:28: POC Glucose 92 Micro: Microbiology 10/28/24 11:09 Urine, Clean Catch Urine Culture - Preliminary Mixed Gram Pos & Gram Neg Org 10/28/24 18:00 Stool Enteric Bacteriology - Final 10/28/24 18:00 Stool Clostridioides difficile (PCR) - Final 10/28/24 18:00 Stool Stool Lactoferrin - Final 10/28/24 18:00 Stool Stool Occult Blood (TRISHA) - Final Occult Blood Positive Radiography Diagnostic Testing: Radiology Impression Abdomen/Pelvis CT 10/28/24 10:31 IMPRESSION: 1. Probable appendicolith, as described above. There are no CT findings of acute appendicitis. 2. Subtle inflammatory changes in the distal transverse colon, suggestive of mild colitis. 3. Postsurgical changes at bilateral inframammary folds, anterior abdominal wall. Reading Location: [facility] Abdomen CT 10/28/24 18:00 IMPRESSION: Negative for obstruction. Colitis. Similar findings to prior Reading Location: [facility] Physical Exam Const alert, oriented x3 and no apparent distress Resp normal respiratory effort Cardio regular rate GI soft to palpation; Negative for non-distended GI Narrative: No rebound, well-healed panniculectomy incision Palpation: tender epigastric, RLQ, LUQ, RUQ and periumbilical; Negative for guarding Extremity no clubbing, cyanosis or edema Assessment & Plan Assessment/Plan (1) Colitis: PLAN: Distal transverse colon/splenic flexure (2) Appendicolith: PLAN: Plan Continue sips and chips until pain improves. Continue cefepime and Flagyl per primary. Continue pain control. Rukhsana Cao M.D. Pager: [phone] [facility] [address] [place] [address], [facility], [address] [place] [address] Office: [phone] Charges/Coding Multi Select Codes Visit Charges Visit Charges: 58197 Subs Hosp L2
[2024-10-29] MEDS: Pantoprazole Sodium 40 MG in 0.9% Normal Saline (100mL MB+) 100 ML 330 MG IV (11:26)
--- NOTE | 2024-10-29 13:51 | PCM.PROGNOTE ---
Subjective Subjective Patient seen and examined. She is still complaining of abdominal pain. Review of systems is otherwise negative. She has remained hemodynamically stable. On room air. Objective Data Objective Data Vital Signs: Vital Signs Temp Pulse Resp BP Pulse Ox O2 Del Method 98.6 F 85 18 150/80 H 98 Room Air 10/29/24 08:26 10/29/24 11:00 10/29/24 11:00 10/29/24 08:26 10/29/24 11:00 10/29/24 11:00 Oxygen Delivery Method Room Air Weight: 204 lb 12.951 oz Body Mass Index (BMI) 32.1 Intake & Output: Intake and Output for Last 24 Hours 10/27/24 10/28/24 10/29/24 23:59 23:59 23:59 Intake Total 4900 / 4900 1300 / 1300 Output Total 100 / 100 Balance 4800 / 4800 1300 / 1300 Lab / Micro Data 10/29/24 04:05 10/29/24 04:05 Labs: Laboratory Results - last 24 hr 10/28/24 09:57: Phosphorus 4.6 H, Magnesium 2.3 H 10/28/24 13:31: Lactic Acid 2.7 H* 10/28/24 16:24: POC Glucose 103 10/28/24 17:45: Lactic Acid 3.9 H* 10/28/24 21:38: POC Glucose 91 10/28/24 23:10: Potassium 3.4, Lactic Acid < 1.0 10/29/24 04:05: WBC 10.4, RBC 3.54 L, Hgb 11.0 L, Hct 32.3 L, MCV 91.2, MCH 31.1, MCHC 34.1, RDW Std Deviation 42.6, RDW Coeff of Delia 12.7, Plt Count 234, MPV 10.5, Immature Gran % (Auto) 0.600, Neut % (Auto) 73.0 H, Lymph % (Auto) 16.7 L, [place] % (Auto) 8.8, Eos % (Auto) 0.7, Baso % (Auto) 0.2, Absolute Neuts (auto) 7.6, Absolute Lymphs (auto) 1.73, Nucleated RBC % 0, Sodium 140, Potassium 3.2 L, Chloride 107, Carbon Dioxide 20.9 L, Anion Gap 11, BUN 9, Creatinine 0.46 L, Estim Creat Clear Calc 159.86, Est GFR (MDRD) Non-Af 112, BUN/Creatinine Ratio 19.9, Glucose 99, Hemoglobin A1c 5.1, Calcium 7.7 10/29/24 05:28: POC Glucose 92 10/29/24 12:43: POC Glucose 99 Micro: Microbiology 10/28/24 11:09 Urine, Clean Catch Urine Culture - Preliminary Mixed Gram Pos & Gram Neg Org 10/28/24 18:00 Stool Enteric Bacteriology - Final 10/28/24 18:00 Stool Clostridioides difficile (PCR) - Final 10/28/24 18:00 Stool Stool Lactoferrin - Final 10/28/24 18:00 Stool Stool Occult Blood (TRISHA) - Final Occult Blood Positive Radiography Diagnostic Testing: Radiology Impression Abdomen CT 10/28/24 18:00 IMPRESSION: Negative for obstruction. Colitis. Similar findings to prior Reading Location: [facility] Physical Exam Const alert, oriented x3 and no apparent distress General Appearance: cooperative HEENT normocephalic, head/scalp atraumatic, moist oral mucous membranes and oropharynx normal Eyes PERRL and EOMs intact bilaterally Neck supple and no JVD Lymph Lymphatic: no lymphedema noted Resp normal respiratory effort, normal air movement and clear to auscultation bilaterally Cardio regular rate, regular rhythm, S1 normal heart sound, S2 normal heart sound and no murmurs GI normal to inspection, nondistended, normoactive bowel sounds and soft to palpation GI Narrative: mild generalised tenderness, no guarding or rebound tenderness. Extremity normal capillary refill, no clubbing, cyanosis or edema and no calf tenderness General Extremity: no tenderness to palpation of joints or extremities Skin General Skin Exam: no breakdown Neuro CN's II-XII intact bilaterally, no focal motor deficits, no sensory deficits noted and deep tendon reflexes 2+ bilaterally Motor Exam: general weakness Psych thought process normal and cooperative Appearance: appropriate Assessment & Plan Assessment/Plan (1) Colitis: (2) Acute abdominal pain: PLAN: Plan #Acute abdominal pain CT abdomen showed appendicolith but no inflammation around appendix and subtle inflammatory changes in distal transverse colon with suspected colitis. Enteric panel ordered. on IV cefepime and flagyl. general surgery on board. Per general surgery, to continue IV cefepime and flagyl. keep NPO. #Type II diabetes mellitus: on Mounjaro and metformin which is on hold. ISS. Accuchecks ACHS #Hypokalemia: K is 3.2. Will replace and trend. #Hypertension: hold HCTZ and losartan. IV labetalol prn #Dyslipidemia: on statin #GERD: on PPI #Left hip degenerative arthritis: PT/OT on board. Had left hip shot about a week prior to admission. Fall precautions DVT prophylaxis: lovenox Charges/Coding Visit Charges Inpatient E&M: 43362 Subs Hosp L2
[2024-10-29] MEDS: 0.9% Saline Lock 10 ML Syringe IV ×2 (19:12→23:20)
[2024-10-30 04:11] VITALS: BP 142/79; PULSE 85; RESP 16; TEMP 36.3; O2SAT 98
[2024-10-30] MEDS: metroNIDAZOLE 500 MG/100 ML BAG 100 MG IV ×3 (05:17→23:05)
[2024-10-30] MEDS: 0.9% Saline Lock 10 ML Syringe IV ×4 (05:19→21:59)
[2024-10-30 05:32] VITALS: BMI 35.6
[2024-10-30 06:20] LABS: Hematocrit 33.5 % (37-47); Hemoglobin 11.5 g/dL (12.0-15.0); Immature Granulocytes Count 0.040 X10^3/uL (0.0-0.0); Mean Corp Hgb Conc 34.3 g/dL (32-36); Mean Corpuscular Volume 91.5 fL (81-99); Mean Platelet Vol. 10.3 fl (6.2-12.0); NRBC Flagged by Analyzer 0 % (0-5); Platelet Count 229 K/mm3 (150-450); RBC Distribution Width CV 12.2 % (11.6-14.6); RBC Distribution Width SD 41.2 fl (35.1-43.9); Red Blood Count 3.66 M/mm3 (4.2-5.4); White Blood Count 10.2 K/mm3 (4.4-11.0)
[2024-10-30 06:48] LABS: Anion Gap 11 (5-15); BUN 6 mg/dL (4-19); BUN/Creat Ratio 12.8 RATIO (10-20); Calcium,Total 8.4 mg/dL (7.6-11.0); Carbon Dioxide 23.5 mmol/L (21.0-32.0); Chloride 105 mmol/L (98-108); Estimated Creatinine Clearance 176.34 ml/min (50-250); Glucose 94 mg/dL (70-99); Potassium 3.1 mmol/L (3.3-5.1)
[2024-10-30] MEDS: Cefepime HCl 2 GM in 0.9% Normal Saline (100mL MB+) 100 ML IV ×3 (06:52→21:53)
[2024-10-30] MEDS: Pantoprazole Sodium 40 MG in 0.9% Normal Saline (100mL MB+) 100 ML 330 MG IV (08:06)
[2024-10-30] MEDS: Potassium Chloride Oral Tablet 20 MEQ 40 MEQ PO (08:09)
--- NOTE | 2024-10-30 08:23 | PCM.PN.SRG ---
Subjective Subjective Patient evaluated resting comfortably in bed. She notes pain with movement and when she has to use the bathroom. She notes passing flatus and having diarrhea. She notes feeling bloated. She denies having any appetite at this time. Objective Data Objective Data Vital Signs: Vital Signs Temp Pulse Resp BP Pulse Ox O2 Del Method 97.4 F L 85 16 142/79 H 98 Room Air 10/30/24 04:11 10/30/24 04:11 10/30/24 04:11 10/30/24 04:11 10/30/24 04:11 10/30/24 07:26 Oxygen Delivery Method Room Air Weight: 227 lb 8.273 oz Body Mass Index (BMI) 35.6 Intake & Output: Intake and Output for Last 24 Hours 10/28/24 10/29/24 10/30/24 23:59 23:59 23:59 Intake Total 4900 / 4900 2700 / 2730 280 / 280 Output Total 100 / 100 Balance 4800 / 4800 2700 / 2730 280 / 280 Lab / Micro Data 10/30/24 06:01 10/30/24 06:01 Labs: Laboratory Results - last 24 hr 10/29/24 12:43: POC Glucose 99 10/29/24 18:17: POC Glucose 96 10/29/24 23:33: POC Glucose 103 10/30/24 06:01: WBC 10.2, RBC 3.66 L, Hgb 11.5 L, Hct 33.5 L, MCV 91.5, MCH 31.4, MCHC 34.3, RDW Std Deviation 41.2, RDW Coeff of Delia 12.2, Plt Count 229, MPV 10.3, Immature Gran % (Auto) 0.400, Neut % (Auto) 73.5 H, Lymph % (Auto) 16.1 L, [place] % (Auto) 8.7, Eos % (Auto) 0.9, Baso % (Auto) 0.4, Absolute Neuts (auto) 7.5, Absolute Lymphs (auto) 1.65, Nucleated RBC % 0, Sodium 139, Potassium 3.1 L, Chloride 105, Carbon Dioxide 23.5, Anion Gap 11, BUN 6, Creatinine 0.44 L, Estim Creat Clear Calc 176.34, Est GFR (MDRD) Non-Af 114, BUN/Creatinine Ratio 12.8, Glucose 94, Calcium 8.4 Micro: Microbiology 10/28/24 11:09 Urine, Clean Catch Urine Culture - Preliminary Mixed Gram Pos & Gram Neg Org 10/28/24 18:00 Stool Enteric Bacteriology - Final 10/28/24 18:00 Stool Clostridioides difficile (PCR) - Final 10/28/24 18:00 Stool Stool Lactoferrin - Final 10/28/24 18:00 Stool Stool Occult Blood (TRISHA) - Final Occult Blood Positive Physical Exam GI GI Narrative: Abdomen- generalized tenderness throughout the abdomen. Positive bowel sounds. Assessment & Plan Assessment/Plan (1) Colitis: (2) Appendicolith: PLAN: Plan I am following this patient in conjunction with Dr. Cao. She will independently evaluate this patient. Labs reviewed. Potassium low, being replaced. Continue IV antibiotics Continue sips and chips until pain improves Encourage ambulation and sitting in the chair. We will continue to monitor this patient Charges/Coding Visit Charges Inpatient E&M: 55261 Subs Hosp L2
[2024-10-30 08:52] VITALS: BP 148/82; PULSE 77; RESP 16; TEMP 35.9; O2SAT 97
--- NOTE | 2024-10-30 09:38 | CASEMGMT ---
Dx: Abd pain LACE: 2 6-Clicks: 24 Medical record reviewed and patient evaluated for identification of discharge planning needs. Based on this review, at this time criteria are not present to indicate a need for discharge planning. Will remain available to assist with discharge planning needs as identified or requested.
--- NOTE | 2024-10-30 11:09 | PN_ITS ---
Subjective Subjective Patient seen and examined. She still had some mild abdominal pain but it is getting better. Review of systems is otherwise negative. She has remained hemodynamically stable. General surgery is on board. Objective Data Objective Data Vital Signs: Vital Signs Temp Pulse Resp BP Pulse Ox O2 Del Method 96.6 F L 77 16 148/82 H 97 Room Air 10/30/24 08:52 10/30/24 08:52 10/30/24 08:52 10/30/24 08:52 10/30/24 08:52 10/30/24 08:52 Oxygen Delivery Method Room Air Weight: 227 lb 8.273 oz Body Mass Index (BMI) 35.6 Intake & Output: Intake and Output for Last 24 Hours 10/28/24 10/29/24 10/30/24 23:59 23:59 23:59 Intake Total 4900 / 4900 2700 / 2730 380 / 380 Output Total 100 / 100 Balance 4800 / 4800 2700 / 2730 380 / 380 Lab / Micro Data 10/30/24 06:01 10/30/24 06:01 Labs: Laboratory Results - last 24 hr 10/29/24 12:43: POC Glucose 99 10/29/24 18:17: POC Glucose 96 10/29/24 23:33: POC Glucose 103 10/30/24 06:01: WBC 10.2, RBC 3.66 L, Hgb 11.5 L, Hct 33.5 L, MCV 91.5, MCH 31.4, MCHC 34.3, RDW Std Deviation 41.2, RDW Coeff of Delia 12.2, Plt Count 229, MPV 10.3, Immature Gran % (Auto) 0.400, Neut % (Auto) 73.5 H, Lymph % (Auto) 16.1 L, [place] % (Auto) 8.7, Eos % (Auto) 0.9, Baso % (Auto) 0.4, Absolute Neuts (auto) 7.5, Absolute Lymphs (auto) 1.65, Nucleated RBC % 0, Sodium 139, P otassium 3.1 L, Chloride 105, Carbon Dioxide 23.5, Anion Gap 11, BUN 6, C reatinine 0.44 L, Estim Creat Clear Calc 176.34, Est GFR (MDRD) Non-Af 114, BUN/Creatinine Ratio 12.8, Glucose 94, Calcium 8.4 Micro: Microbiology 10/28/24 11:09 Urine, Clean Catch Urine Culture - Final Mixed Gram Pos & Gram Neg Org 10/28/24 18:00 Stool Enteric Bacteriology - Final 10/28/24 18:00 Stool Clostridioides difficile (PCR) - Final 10/28/24 18:00 Stool Stool Lactoferrin - Final 10/28/24 18:00 Stool Stool Occult Blood (TRISHA) - Final Occult Blood Positive Physical Exam Const alert, oriented x3 and no apparent distress General Appearance: cooperative HEENT normocephalic, head/scalp atraumatic, moist oral mucous membranes and oropharynx normal Eyes PERRL and EOMs intact bilaterally Neck supple and no JVD Lymph Lymphatic: no lymphedema noted Resp normal respiratory effort, normal air movement and clear to auscultation bilaterally Cardio regular rate, regular rhythm, S1 normal heart sound, S2 normal heart sound and no murmurs GI normal to inspection, nondistended, normoactive bowel sounds and soft to palpation GI Narrative: mild generalised tenderness, no guarding or rebound tenderness. Extremity normal capillary refill, no clubbing, cyanosis or edema and no calf tenderness General Extremity: no tenderness to palpation of joints or extremities Skin General Skin Exam: no breakdown Neuro CN's II-XII intact bilaterally, no focal motor deficits, no sensory deficits noted and deep tendon reflexes 2+ bilaterally Motor Exam: general weakness Psych thought process normal and cooperative Appearance: appropriate Assessment & Plan Assessment/Plan (1) Colitis: (2) Acute abdominal pain: PLAN: Plan #Acute abdominal pain * CT abdomen showed appendicolith but no inflammation around appendix and subtle inflammatory changes in distal transverse colon with suspected colitis. * Enteric panel nega tive. * on IV cefepime and flagyl. * general surgery on board. Per general surgery, to continue IV cefepime and flagyl. * per general surgery, to continue keepin NPO today * #Type II diabetes mellitus: on Mounjaro and metformin which is on hold. ISS. Accuchecks ACHS #Hypokalemia: K is 3.1 today. Will replace aggressively and trend. #Hypertension: hold HCTZ and losartan. IV labetalol prn #Dyslipidemia: on statin #GERD: on PPI #Left hip degenerative arthritis: PT/OT on board. Had left hip shot about a week prior to admission. Fall precautions DVT prophylaxis: lovenox Charges/Coding Visit Charges Inpatient E&M: 21437 Subs Hosp L2
[2024-10-30 15:11] VITALS: BP 162/82; PULSE 90; RESP 16; TEMP 36.6; O2SAT 98
[2024-10-30 22:05] VITALS: BP 175/89; PULSE 96; RESP 16; TEMP 36.9; O2SAT 97
[2024-10-31] MEDS: Cefepime HCl 2 GM in 0.9% Normal Saline (100mL MB+) 100 ML IV ×3 (05:16→22:32)
[2024-10-31 05:22] VITALS: BP 152/82; PULSE 74; RESP 16; TEMP 37.1; O2SAT 96
[2024-10-31 06:00] VITALS: BMI 35.6
[2024-10-31] MEDS: metroNIDAZOLE 500 MG/100 ML BAG 100 MG IV ×3 (06:12→21:22)
--- NOTE | 2024-10-31 07:14 | PCM.PN.SRG ---
Subjective Subjective Patient evaluated resting comfortably in bed. She notes abdominal pain and bloating has improved. She notes abdominal soreness described as performing too many abdominal crunches. She continues to gas flatus, which is still uncomfortable. She noted a single episode of nausea overnight. She notes feeling hungry this morning. Objective Data Objective Data Vital Signs: Vital Signs Temp Pulse Resp BP Pulse Ox O2 Del Method 98.7 F 74 16 152/82 H 96 Room Air 10/31/24 05:22 10/31/24 05:22 10/31/24 05:22 10/31/24 05:22 10/31/24 05:22 10/31/24 05:22 Oxygen Delivery Method Room Air Weight: 226 lb 13.69 oz Body Mass Index (BMI) 35.6 Intake & Output: Intake and Output for Last 24 Hours 10/29/24 10/30/24 10/31/24 23:59 23:59 23:59 Intake Total 2700 / 2730 780 / 1080 500 / 500 Balance 2700 / 2730 780 / 1080 500 / 500 Lab / Micro Data 10/30/24 06:01 10/30/24 06:01 Labs: Laboratory Results - last 24 hr 10/30/24 12:14: POC Glucose 75 10/30/24 18:03: POC Glucose 82 10/30/24 22:14: POC Glucose 86 Micro: Microbiology 10/28/24 14:40 Blood Culture (Wb) #2 - Anticubital Right Blood Culture - Preliminary No growth in 48 hours. 10/28/24 14:20 Blood Culture (Wb) - Anticubital Right Blood Culture - Preliminary No growth in 48 hours. 10/28/24 11:09 Urine, Clean Catch Urine Culture - Final Mixed Gram Pos & Gram Neg Org 10/28/24 18:00 Stool Enteric Bacteriology - Final 10/28/24 18:00 Stool Clostridioides difficile (PCR) - Final 10/28/24 18:00 Stool Stool Lactoferrin - Final 10/28/24 18:00 Stool Stool Occult Blood (TRISHA) - Final Occult Blood Positive Physical Exam GI GI Narrative: Abdomen- soft, slight tenderness in the upper abdomen. Positive bowel sounds. Less distended this morning. Assessment & Plan Assessment/Plan (1) Colitis: (2) Appendicolith: PLAN: Plan I am following this patient in conjunction with Dr. Galvan in Dr. Cao's absence. Labs pending Will increase diet to clear liquids Patient will need an appendectomy as an outpatient electively once recovered from her hospitalization Continue to encourage ambulation and sitting in the chair Not ready for discharge We will continue to monitor this patient Charges/Coding Visit Charges Inpatient E&M: 04521 Subs Hosp L2
[2024-10-31 08:19] LABS: Hematocrit 35.1 % (37-47); Hemoglobin 12.4 g/dL (12.0-15.0); Immature Granulocytes Count 0.020 X10^3/uL (0.0-0.0); Mean Corp Hgb Conc 35.3 g/dL (32-36); Mean Corpuscular Volume 89.5 fL (81-99); Mean Platelet Vol. 10.4 fl (6.2-12.0); NRBC Flagged by Analyzer 0 % (0-5); Platelet Count 283 K/mm3 (150-450); RBC Distribution Width CV 11.9 % (11.6-14.6); RBC Distribution Width SD 39.2 fl (35.1-43.9); Red Blood Count 3.92 M/mm3 (4.2-5.4); White Blood Count 9.2 K/mm3 (4.4-11.0)
[2024-10-31 08:30] LABS: Anion Gap 16 (5-15); BUN 8 mg/dL (4-19); BUN/Creat Ratio 18.4 RATIO (10-20); Calcium,Total 8.7 mg/dL (7.6-11.0); Carbon Dioxide 17.1 mmol/L (21.0-32.0); Chloride 105 mmol/L (98-108); Estimated Creatinine Clearance 168.41 ml/min (50-250); Glucose 71 mg/dL (70-99); Potassium 3.6 mmol/L (3.3-5.1)
[2024-10-31 08:41] VITALS: BP 157/96; PULSE 72; RESP 14; TEMP 36.6; O2SAT 98
[2024-10-31 09:11] VITALS: O2SAT 98
[2024-10-31] MEDS: Pantoprazole Sodium 40 MG in 0.9% Normal Saline (100mL MB+) 100 ML 330 MG IV (10:27)
[2024-10-31] MEDS: 0.9% Saline Lock 10 ML Syringe IV ×3 (10:29→21:22)
--- NOTE | 2024-10-31 11:49 | PN_ITS ---
Subjective Subjective Patient seen and examined with her nurse by her bedside. She said her abdominal pain is improving. Review of systems is otherwise negative. Diet has been advanced today as per general surgery. General surgery does not think she is ready for discharge yet. Objective Data Objective Data Vital Signs: Vital Signs Temp Pulse Resp BP Pulse Ox O2 Del Method 98 F 72 14 157/96 H 98 Room Air 10/31/24 08:41 10/31/24 08:41 10/31/24 08:41 10/31/24 08:41 10/31/24 09:11 10/31/24 09:11 Oxygen Delivery Method Room Air Weight: 226 lb 13.69 oz Body Mass Index (BMI) 35.6 Intake & Output: Intake and Output for Last 24 Hours 10/29/24 10/30/24 10/31/24 23:59 23:59 23:59 Intake Total 2700 / 2730 780 / 1080 700 / 700 Balance 2700 / 2730 780 / 1080 700 / 700 Lab / Micro Data 10/31/24 07:15 10/31/24 07:15 Labs: Laboratory Results - last 24 hr 10/30/24 12:14: POC Glucose 75 10/30/24 18:03: POC Glucose 82 10/30/24 22:14: POC Glucose 86 10/31/24 07:15: WBC 9.2, RBC 3.92 L, Hgb 12.4, Hct 35.1 L, MCV 89.5, MCH 31.6, MCHC 35.3, RDW Std Deviation 39.2, RDW Coeff of Delia 11.9, Plt Count 283, MPV 10.4, Immature Gran % (Auto) 0.200, Neut % (Auto) 74.8 H, Lymph % (Auto) 16.3 L, [place] % (Auto) 6.8, Eos % (Auto) 1.6, Baso % (Auto) 0.3, Absolute Neuts (auto) 6.9, Absolute Lymphs (auto) 1.51, Nucleated RBC % 0, Sodium 138, Potassium 3.6, Chloride 105, Carbon Dioxide 17.1 L, Anion Gap 16 H, BUN 8, Creatinine 0.46 L, Estim Creat Clear Calc 168.41, Est GFR (MDRD) Non-Af 112, BUN/Creatinine Ratio 18.4, Glucose 71, Calcium 8.7 10/31/24 07:48: POC Glucose 64 L 10/31/24 11:22: POC Glucose 173 H Micro: Microbiology 10/28/24 14:40 Blood Culture (Wb) #2 - Anticubital Right Blood Culture - Preliminary No growth in 48 hours. 10/28/24 14:20 Blood Culture (Wb) - Anticubital Right Blood Culture - Preliminary No growth in 48 hours. 10/28/24 11:09 Urine, Clean Catch Urine Culture - Final Mixed Gram Pos & Gram Neg Org 10/28/24 18:00 Stool Enteric Bacteriology - Final 10/28/24 18:00 Stool Clostridioides difficile (PCR) - Final 10/28/24 18:00 Stool Stool Lactoferrin - Final 10/28/24 18:00 Stool Stool Occult Blood (TRISHA) - Final Occult Blood Positive Physical Exam Const alert, oriented x3 and no apparent distress General Appearance: cooperative HEENT normocephalic, head/scalp atraumatic, moist oral mucous membranes and oropharynx normal Eyes PERRL and EOMs intact bilaterally Neck supple and no JVD Lymph Lymphatic: no lymphedema noted Resp normal respiratory effort, normal air movement and clear to auscultation bilaterally Cardio regular rate, regular rhythm, S1 normal heart sound, S2 normal heart sound and no murmurs GI normal to inspection, nondistended, normoactive bowel sounds and soft to palpation Extremity normal capillary refill, no clubbing, cyanosis or edema and no calf tenderness General Extremity: no tenderness to palpation of joints or extremities Skin General Skin Exam: no breakdown Neuro CN's II-XII intact bilaterally, no focal motor deficits, no sensory deficits noted and deep tendon reflexes 2+ bilaterally Motor Exam: general weakness Psych thought process normal and cooperative Appearance: appropriate Assessment & Plan Assessment/Plan (1) Colitis: (2) Acute abdominal pain: PLAN: Plan #Acute abdominal pain * CT abdomen showed appendicolith but no inflammation around appendix and subtle inflammatory changes in distal transverse colon with suspected colitis. * Enteric panel negative. * on IV cefepime and flagyl. * general surgery on board. Per general surgery, to continue IV cefepime and flagyl. * per general surgery, placed on clear liquid diet today. * #Type II diabetes mellitus: on Mounjaro and metformin which is on hold. ISS. Accuchecks ACHS #Hypokalemia: resolved. K is 3.6. #Hypertension: hold HCTZ and losartan. IV labetalol prn #Dyslipidemia: on statin #GERD: on PPI #Left hip degenerative arthritis: PT/OT on board. Had left hip shot about a week prior to admission. Fall precautions DVT prophylaxis: lovenox Charges/Coding Visit Charges Inpatient E&M: 90278 Subs Hosp L2
[2024-10-31 14:00] VITALS: BP 139/76; PULSE 79; RESP 18; TEMP 36.9; O2SAT 99
[2024-10-31 21:10] VITALS: BP 184/98; PULSE 70; RESP 18; TEMP 36.7; O2SAT 98
[2024-11-01 03:48] VITALS: BMI 35.2
[2024-11-01 04:35] VITALS: BP 146/81; PULSE 71; RESP 18; TEMP 36.6; O2SAT 97
--- NOTE | 2024-11-01 06:41 | PN.SURG_ITS ---
Subjective Subjective Patient evaluated resting comfortably in bed. She is currently attempting to get another IV. She notes tolerating clear liquids well. She notes single episode of nausea overnight. She denies any vomiting. She notes pain now with only bowel movements. She notes bowel movements are soft loose. No longer having diarrhea. Objective Data Objective Data Vital Signs: Vital Signs Temp Pulse Resp BP Pulse Ox O2 Del Method 97.9 F 71 18 146/81 H 97 Room Air 11/01/24 04:35 11/01/24 04:35 11/01/24 04:35 11/01/24 04:35 11/01/24 04:35 11/01/24 04:35 Oxygen Delivery Method Room Air Weight: 225 lb 1.471 oz Body Mass Index (BMI) 35.2 Intake & Output: Intake and Output for Last 24 Hours 10/30/24 10/31/24 11/01/24 23:59 23:59 23:59 Intake Total 780 / 1080 1500 / 1500 1100 / 1100 Balance 780 / 1080 1500 / 1500 1100 / 1100 Lab / Micro Data 10/31/24 07:15 10/31/24 07:15 Labs: Laboratory Results - last 24 hr 10/31/24 07:15: WBC 9.2, RBC 3.92 L, Hgb 12.4, Hct 35.1 L, MCV 89.5, MCH 31.6, MCHC 35.3, RDW Std Deviation 39.2, RDW Coeff of Delia 11.9, Plt Count 283, MPV 10.4, Immature Gran % (Auto) 0.200, Neut % (Auto) 74.8 H, Lymph % (Auto) 16.3 L, [place] % (Auto) 6.8, Eos % (Auto) 1.6, Baso % (Auto) 0.3, Absolute Neuts (auto) 6.9, Absolute Lymphs (auto) 1.51, Nucleated RBC % 0, Sodium 138, Potassium 3.6, Chloride 105, Carbon Dioxide 17.1 L, Anion Gap 16 H, BUN 8, Creatinine 0.46 L, Estim Creat Clear Calc 168.41, Est GFR (MDRD) Non-Af 112, BUN/Creatinine Ratio 18.4, Glucose 71, Calcium 8.7 10/31/24 07:48: POC Glucose 64 L 10/31/24 11:22: POC Glucose 173 H 10/31/24 16:24: POC Glucose 81 10/31/24 21:09: POC Glucose 85 11/01/24 00:10: POC Glucose 105 Micro: Microbiology 10/28/24 14:40 Blood Culture (Wb) #2 - Anticubital Right Blood Culture - Preliminary No growth in 48 hours. 10/28/24 14:20 Blood Culture (Wb) - Anticubital Right Blood Culture - Preliminary No growth in 48 hours. 10/28/24 11:09 Urine, Clean Catch Urine Culture - Final Mixed Gram Pos & Gram Neg Org 10/28/24 18:00 Stool Enteric Bacteriology - Final 10/28/24 18:00 Stool Clostridioides difficile (PCR) - Final 10/28/24 18:00 Stool Stool Lactoferrin - Final 10/28/24 18:00 Stool Stool Occult Blood (TRISHA) - Final Occult Blood Positive Physical Exam GI GI Narrative: Abdomen- soft, nontender with palpation. Positive bowel sounds. Assessment & Plan Assessment/Plan (1) Colitis: (2) Appendicolith: PLAN: Plan I am following this patient in conjunction with Dr. Cao. she will independently evaluate this patient. Labs pending IV placement pending Continue IV antibiotics pending IV placement. May need to switch to oral. Will increase diet to full liquids this morning Patient will need an appendectomy as an outpatient electively once recovered from her hospitalization Continue to encourage ambulation and sitting in the chair Not ready for discharge, likely tomorrow We will continue to monitor this patient Charges/Coding Visit Charges Inpatient E&M: 44204 [facility] Hosp L2
[2024-11-01] MEDS: Cefepime HCl 2 GM in 0.9% Normal Saline (100mL MB+) 100 ML IV ×3 (07:03→22:01)
--- NOTE | 2024-11-01 07:52 | NURSING ---
into talk with patient regarding CBC left needing drawn by nursing. pt states to told previous staff they can not attempt to collect labs until later this afternoon. Pt refused to allow this nurse to attempt to collect from current IV stating nurse whom placed the IV with the ultrasound did collect some labs. Pt aware what labs are still needing to be collected and why the physician would be wanting this. Primary RN, Francie Avalos, and Dr. Vangie briggs.
[2024-11-01 08:04] LABS: Anion Gap 13 (5-15); BUN 4 mg/dL (4-19); BUN/Creat Ratio 10.9 RATIO (10-20); Calcium,Total 8.6 mg/dL (7.6-11.0); Carbon Dioxide 22.2 mmol/L (21.0-32.0); Chloride 105 mmol/L (98-108); Estimated Creatinine Clearance 188.17 ml/min (50-250); Glucose 95 mg/dL (70-99); Potassium 3.4 mmol/L (3.3-5.1)
[2024-11-01] MEDS: metroNIDAZOLE 500 MG/100 ML BAG 100 MG IV ×3 (08:08→23:21)
[2024-11-01 08:16] VITALS: BP 167/98; PULSE 77; RESP 16; TEMP 36.7; O2SAT 99
[2024-11-01] MEDS: Pantoprazole Sodium 40 MG in 0.9% Normal Saline (100mL MB+) 100 ML 330 MG IV (09:22)
--- NOTE | 2024-11-01 12:53 | PN_ITS ---
Subjective Subjective Patient seen and examined with her nurse by her bedside. She felt much better. She only had some abdominal pain when she tried to use the bathroom. Review of systems is otherwise negative. She has remained hemodynamically stable. Objective Data Objective Data Vital Signs: Vital Signs Temp Pulse Resp BP Pulse Ox O2 Del Method 98.0 F 77 16 167/98 H 99 Room Air 11/01/24 08:16 11/01/24 08:16 11/01/24 08:16 11/01/24 08:16 11/01/24 08:16 11/01/24 08:16 Oxygen Delivery Method Room Air Weight: 225 lb 1.471 oz Body Mass Index (BMI) 35.2 Intake & Output: Intake and Output for Last 24 Hours 10/30/24 10/31/24 11/01/24 23:59 23:59 23:59 Intake Total 780 / 1080 1500 / 1500 1400 / 1400 Balance 780 / 1080 1500 / 1500 1400 / 1400 Lab / Micro Data 10/31/24 07:15 11/01/24 07:05 Labs: Laboratory Results - last 24 hr 10/31/24 16:24: POC Glucose 81 10/31/24 21:09: POC Glucose 85 11/01/24 00:10: POC Glucose 105 11/01/24 06:13: POC Glucose 100 11/01/24 07:05: Sodium 140, Potassium 3.4, Chloride 105, Carbon Dioxide 22.2, Anion Gap 13, BUN 4, Creatinine 0.41 L, Estim Creat Clear Calc 188.17, Est GFR (MDRD) Non-Af 115, BUN/Creatinine Ratio 10.9, Glucose 95, Calcium 8.6 11/01/24 11:17: POC Glucose 101 Micro: Microbiology 10/28/24 14:40 Blood Culture (Wb) #2 - Anticubital Right Blood Culture - Preliminary No growth in 48 hours. 10/28/24 14:20 Blood Culture (Wb) - Anticubital Right Blood Culture - Preliminary No growth in 48 hours. 10/28/24 11:09 Urine, Clean Catch Urine Culture - Final Mixed Gram Pos & Gram Neg Org 10/28/24 18:00 Stool Enteric Bacteriology - Final 10/28/24 18:00 Stool Clostridioides difficile (PCR) - Final 10/28/24 18:00 Stool Stool Lactoferrin - Final 10/28/24 18:00 Stool Stool Occult Blood (TRISHA) - Final Occult Blood Positive Physical Exam Const alert, oriented x3 and no apparent distress General Appearance: cooperative HEENT normocephalic, head/scalp atraumatic, moist oral mucous membranes and oropharynx normal Eyes PERRL and EOMs intact bilaterally Neck supple and no JVD Lymph Lymphatic: no lymphedema noted Resp normal respiratory effort, normal air movement and clear to auscultation bilaterally Cardio regular rate, regular rhythm, S1 normal heart sound, S2 normal heart sound and no murmurs GI normal to inspection, nondistended, normoactive bowel sounds and soft to palpation Extremity normal capillary refill, no clubbing, cyanosis or edema and no calf tenderness General Extremity: no tenderness to palpation of joints or extremities Skin General Skin Exam: no breakdown Neuro CN's II-XII intact bilaterally, no focal motor deficits, no sensory deficits noted and deep tendon reflexes 2+ bilaterally Motor Exam: general weakness Psych thought process normal and cooperative Appearance: appropriate Assessment & Plan Assessment/Plan (1) Colitis: (2) Acute abdominal pain: PLAN: Plan #Acute abdominal pain * CT abdomen showed appendicolith but no inflammation around appendix and subtle inflammatory changes in distal transverse colon with suspected colitis. * Enteric panel negative. * on IV cefepime and flagyl. * general surgery on board. Per general surgery, to continue IV cefepime and flagyl. * diet advanced as per general surgery. * #Type II diabetes mellitus: on Mounjaro and metformin which is on hold. ISS. Accuchecks ACHS #Hypokalemia: resolved. K is 3.4. #Hypertension: hold HCTZ and losartan. IV labetalol prn. Will resume BP meds as BP elevated. #Dyslipidemia: on statin #GERD: on PPI #Left hip degenerative arthritis: PT/OT on board. Had left hip shot about a week prior to admission. Fall precautions DVT prophylaxis: lovenox Disposition: General surgery wants to keep one more day. For likely DC tomorrow. Charges/Coding Visit Charges Inpatient E&M: 86978 Subs Hosp L2
[2024-11-01 14:00] VITALS: BP 150/87; PULSE 77; RESP 16; TEMP 36.4; O2SAT 98
[2024-11-01 20:28] VITALS: BP 152/103; PULSE 73; RESP 18; TEMP 36.6; O2SAT 98
[2024-11-02 01:05] VITALS: BP 158/98; PULSE 72; RESP 18; TEMP 36.7; O2SAT 98
[2024-11-02] MEDS: 0.9% Saline Lock 10 ML Syringe IV (05:08)
[2024-11-02] MEDS: Cefepime HCl 2 GM in 0.9% Normal Saline (100mL MB+) 100 ML IV (05:12)
[2024-11-02 05:17] VITALS: BP 147/78; PULSE 83; RESP 16; TEMP 36.6; O2SAT 98
[2024-11-02] MEDS: metroNIDAZOLE 500 MG/100 ML BAG 100 MG IV (05:54)
[2024-11-02 06:00] VITALS: BMI 35.6
--- NOTE | 2024-11-02 07:29 | PN.SURG_ITS ---
Subjective Subjective Patient tolerated low fiber diet denies any abdominal pain. Even denies abdominal pain with bowel movements. Objective Data Objective Data Vital Signs: Vital Signs Temp Pulse Resp BP Pulse Ox O2 Del Method 98 F 83 16 147/78 H 98 Room Air 11/02/24 05:17 11/02/24 05:17 11/02/24 05:17 11/02/24 05:17 11/02/24 05:17 11/02/24 05:17 Oxygen Delivery Method Room Air Weight: 227 lb 4.745 oz Body Mass Index (BMI) 35.6 Intake & Output: Intake and Output for Last 24 Hours 10/31/24 11/01/24 11/02/24 23:59 23:59 23:59 Intake Total 1500 / 1500 1700 / 1700 550 / 550 Balance 1500 / 1500 1700 / 1700 550 / 550 Lab / Micro Data 10/31/24 07:15 11/01/24 07:05 Labs: Laboratory Results - last 24 hr 11/01/24 07:05: Sodium 140, Potassium 3.4, Chloride 105, Carbon Dioxide 22.2, Anion Gap 13, BUN 4, Creatinine 0.41 L, Estim Creat Clear Calc 188.17, Est GFR (MDRD) Non-Af 115, BUN/Creatinine Ratio 10.9, Glucose 95, Calcium 8.6 11/01/24 11:17: POC Glucose 101 11/01/24 16:22: POC Glucose 116 H 11/01/24 22:13: POC Glucose 141 H 11/02/24 06:02: POC Glucose 103 Micro: Microbiology 10/28/24 14:40 Blood Culture (Wb) #2 - Anticubital Right Blood Culture - Preliminary No growth in 48 hours. 10/28/24 14:20 Blood Culture (Wb) - Anticubital Right Blood Culture - Preliminary No growth in 48 hours. 10/28/24 11:09 Urine, Clean Catch Urine Culture - Final Mixed Gram Pos & Gram Neg Org 10/28/24 18:00 Stool Enteric Bacteriology - Final 10/28/24 18:00 Stool Clostridioides difficile (PCR) - Final 10/28/24 18:00 Stool Stool Lactoferrin - Final 10/28/24 18:00 Stool Stool Occult Blood (TRISHA) - Final Occult Blood Positive Physical Exam Const oriented x3 and no apparent distress GI GI Narrative: Soft, nondistended, nontender Assessment & Plan Assessment/Plan (1) Colitis: (2) Appendicolith: PLAN: Plan Patient tolerated low fiber diet. Will have patient continue. Will DC with levofloxacin and Flagyl for 8 days. Outpatient follow-up in 1 to 2 weeks in the office. Will discuss outpatient appendectomy at that time as well. Patient is agreeable with plan. Rukhsana Cao M.D. Pager: [phone] [facility] [address] [place] [address], [facility], [address] [place] [id number] Office: [phone] Charges/Coding Multi Select Codes Visit Charges Visit Charges: 15407 Subs Hosp L2
--- NOTE | 2024-11-02 07:29 | DCINST_ITS ---
Discharge Instructions Diet Discharge Diet: - (low fiber for about 2-3 weeks) Activity Discharge Activity: Return to Normal Activity Dressing / Incision Call your doctor if your incision/area has: Increased Pain/ Swelling Follow Up Care Please Follow Up With: Rukhsana Cao MD When: Call the office for follow-up in 1 to 2 weeks Test Results: Test results from this visit will be discussed in further detail at your follow- up appointment, if applicable. Discharge Plan Admission Admit Date/Time: 10/28/24 14:51 Attending Provider: Tess Vences Primary Care Provider: Buddy Hui Consulting Providers: Rukhsana Cao; Patel Brown Discharge Orders/Prescriptions Prescriptions: New metronidazole 500 mg tablet 500 mg PO Q8H 8 Days Qty: 24 0RF levofloxacin 750 mg tablet 750 mg PO DAILY Qty: 8 0RF fluconazole 150 mg tablet 150 mg PO DAILY Qty: 2 0RF Rx Instructions: if still symptoms after 72 hrs take the other tab Continued Mounjaro 12.5 mg/0.5 mL pen injector 15 mg subcut QWEEK venlafaxine 75 mg capsule,extended release 24hr 75 mg PO QHS Qty: 90 4RF aspirin 81 MG tablet,chewable 81 mg PO DAILY@0800 Patient Comments: Heart health cholecalciferol (vitamin D3) 1,000 UNIT capsule 1,000 unit PO DAILY Patient Comments: Supplement calcium carbonate 600 MG tablet 300 mg PO BID Patient Comments: supplement glucosamine sulf-chondroitinSA 1 EACH capsule 1 ea PO BID Patient Comments: supplement pantoprazole 40 MG tablet 40 mg PO DAILY Patient Comments: acid reflux med cetirizine 10 MG capsule 10 mg PO DAILY PRN (Reason: Allergies) meloxicam 15 mg tablet 15 mg PO DAILY epinephrine 0.3 mg/0.3 mL auto-injector 0.3 mg IM Q4H hydrochlorothiazide 12.5 mg tablet 12.5 mg PO DAILY losartan 50 mg tablet 50 mg PO BID metformin 500 mg tablet 500 mg PO BID simvastatin 10 mg tablet 10 mg PO DAILY Referrals / Follow Up: Buddy Hui MD [Primary Care Provider] -
[2024-11-02 08:06] LABS: Hematocrit 36.1 % (37-47); Hemoglobin 13.0 g/dL (12.0-15.0); Immature Granulocytes Count 0.020 X10^3/uL (0.0-0.0); Mean Corp Hgb Conc 36.0 g/dL (32-36); Mean Corpuscular Volume 86.8 fL (81-99); Mean Platelet Vol. 9.8 fl (6.2-12.0); NRBC Flagged by Analyzer 0 % (0-5); Platelet Count 335 K/mm3 (150-450); RBC Distribution Width CV 11.9 % (11.6-14.6); RBC Distribution Width SD 38.3 fl (35.1-43.9); Red Blood Count 4.16 M/mm3 (4.2-5.4); White Blood Count 6.5 K/mm3 (4.4-11.0)
[2024-11-02 08:45] LABS: Anion Gap 12 (5-15); BUN 7 mg/dL (4-19); BUN/Creat Ratio 15.1 RATIO (10-20); Calcium,Total 9.1 mg/dL (7.6-11.0); Carbon Dioxide 21.2 mmol/L (21.0-32.0); Chloride 107 mmol/L (98-108); Estimated Creatinine Clearance 172.33 ml/min (50-250); Glucose 101 mg/dL (70-99); Potassium 3.4 mmol/L (3.3-5.1)
[2024-11-02 08:57] VITALS: BP 145/86; PULSE 78; RESP 18; TEMP 36.6; O2SAT 99
--- NOTE | 2024-11-02 11:01 | DS.PCM_ITS ---
Providers Date of Admission: 10/28/24 Date of Discharge: 11/02/24 Primary Care Physician: Dr. Buddy Hui MD Consultations 10/28/24 15:39 Consult: General Surgery Routine Consulting Provider: Rukhsana Cao Reason for Consult: ABDOMINAL pain EMERGENT Consult: No MD Notified: Yes Date Notified: 10/28/24 Time Notified: 15:16 Method of Notification: Verbal Reason For Visit: ABD PAIN Diagnosis Discharge Diagnosis (1) Colitis: Status: Acute Code(s): K52.9 - Noninfective gastroenteritis and colitis, unspecified (2) Appendicolith: Status: Acute Code(s): K38.9 - Disease of appendix, unspecified Plan #Acute abdominal pain * CT abdomen showed appendicolith but no inflammation around appendix and subtle inflammatory changes in distal transverse colon with suspected colitis. * Enteric panel negative. * on IV cefepime and flagyl. * general surgery on board. Per general surgery, to continue IV cefepime and flagyl. * diet advanced as per general surgery. * #Type II diabetes mellitus: on Mounjaro and metformin which is on hold. ISS. Accuchecks ACHS #Hypokalemia: resolved. K is 3.4. #Hypertension: hold HCTZ and losartan. IV labetalol prn. Will resume BP meds as BP elevated. #Dyslipidemia: on statin #GERD: on PPI #Left hip degenerative arthritis: PT/OT on board. Had left hip shot about a week prior to admission. Fall precautions DVT prophylaxis: lovenox Disposition: General surgery wants to keep one more day. For likely DC tomorrow. Medications at Discharge Home Medications aspirin 81 mg chewable tablet 81 mg PO DAILY@0800 06/05/13 cholecalciferol (vitamin D3) 25 mcg (1,000 unit) capsule 1,000 unit PO DAILY 06/05/13 calcium carbonate 300 mg PO BID 02/20/16 glucosamine sulfate 250 mg-chondroitin sulfate A 200 mg capsule 1 ea PO BID 02/20/16 pantoprazole 40 mg tablet,delayed release 40 mg PO DAILY 02/20/16 cetirizine 10 mg capsule 10 mg PO DAILY PRN Allergies 10/22/18 meloxicam 15 mg tablet 15 mg PO DAILY 12/21/22 epinephrine 0.3 mg/0.3 mL injection, auto-injector 0.3 mg IM Q4H 03/28/23 hydrochlorothiazide 12.5 mg tablet 12.5 mg PO DAILY 03/28/23 losartan 50 mg tablet 50 mg PO BID 03/28/23 metformin 500 mg tablet 500 mg PO BID 03/28/23 simvastatin 10 mg tablet 10 mg PO DAILY 03/28/23 tirzepatide 12.5 mg/0.5 mL subcutaneous pen injector (Mounjaro) 15 mg subcut QWEEK 09/12/23 venlafaxine 75 mg capsule,extended release 24 hr 75 mg PO QHS #90 caps 09/18/24 fluconazole 150 mg tablet 150 mg PO DAILY 1 dose #2 tabs 11/02/24 levofloxacin 750 mg tablet 750 mg PO DAILY #8 tabs 11/02/24 metronidazole 500 mg tablet 500 mg PO Q8H 8 days #24 tabs 11/02/24 Hospital Course Operations None Procedures None Summary of Care Provided Minutes Spent on Discharge: 45 Hospital Course: Patient is a 54-year-old female with extensive past medical history as outlined was admitted to the ED on 10/28/2024 with complaint of sudden onset of abdominal pain at around 3 AM on the day of presentation. The pain was periumbilical and rated at about 10/10. He had no aggravating or relieving factors and subsequently she developed nausea and vomiting as well. She also had explosive diarrhea which was nonbloody. She therefore came into the ED. In the ED lactic acid was elevated and she also had elevated leukocytes. She was hydrated with IV fluids but lactic acid still trended upwards. CT of the abdomen done showed possible appendicolith but no CT findings of acute appendicitis and subtle inflammatory changes in the distal transverse colon suggestive of mild colitis and postsurgical changes at bilateral inframammary folds and anterior abdominal wall. She was admitted and managed for acute abdominal pain with concerns for colitis. General surgery was consulted and did not think that she had acute appendicitis. She was placed on IV cefepime and Flagyl. She was hydrated with IV fluids. Lactic acidosis resolved and patient felt much better. Gradually the abdominal pain resolved and she was started on a diet per general surgery. Diet was slowly advanced again as per general surgery. She was able to tolerate a regular diet by 11/02/2024 and so was discharged home. She was discharged on a course of p.o. metronidazole, levofloxacin and fluconazole per general surgery. She is follow-up with general surgery on outpatient basis for appendectomy to be scheduled. Patient seen and examined prior to discharge. She felt much better and had no complaints. She had an uneventful night. Review of systems otherwise negative. Abdominal pain have resolved. Labs and vitals reviewed. Home medication reviewed and reconciled. Physical Exam Const alert, oriented x3 and no apparent distress Constitutional Narrative: class II obesity General Appearance: cooperative, comfortable and well kempt HEENT normocephalic, head/scalp atraumatic, hearing grossly normal bilaterally, moist oral mucous membranes and oropharynx normal Mouth: oral and palatal mucosa normal Eyes EOMs intact bilaterally and conjunctivae normal Neck supple and no JVD Lymph Lymphatic: no lymphedema noted Resp normal respiratory effort, normal air movement and clear to auscultation bilaterally Cardio regular rate, regular rhythm, S1 normal heart sound, S2 normal heart sound and no murmurs GI normal to inspection, nondistended, normoactive bowel sounds and soft to palpation Extremity normal to inspection, full ROM, normal capillary refill, no clubbing, cyanosis or edema and no calf tenderness General Extremity: no tenderness to palpation of joints or extremities Skin no rashes or lesions noted General Skin Exam: no breakdown Neuro oriented x3, CN's II-XII intact bilaterally, moves all extremities and no focal motor deficits Sensorium / Orientation: awake and alert Motor Exam: general weakness Psych thought process normal and cooperative Appearance: appropriate Weight / BMI Weight Weight: 227 lb 4.745 oz Body Mass Index (BMI) 35.6 ABG / Lab / Microbiology Data 11/02/24 07:38 11/02/24 07:38 Laboratory: Laboratory Results - last 24 hr 11/01/24 16:22: POC Glucose 116 H 11/01/24 22:13: POC Glucose 141 H 11/02/24 06:02: POC Glucose 103 11/02/24 07:38: WBC 6.5, RBC 4.16 L, Hgb 13.0, Hct 36.1 L, MCV 86.8, MCH 31.3, MCHC 36.0, RDW Std Deviation 38.3, RDW Coeff of Delia 11.9, Plt Count 335, MPV 9.8, Immature Gran % (Auto) 0.300, Neut % (Auto) 65.7, Lymph % (Auto) 21.0, [place] % (Auto) 10.3 H, Eos % (Auto) 2.2, Baso % (Auto) 0.5, Absolute Neuts (auto) 4.3, Absolute Lymphs (auto) 1.37, Nucleated RBC % 0, Sodium 140, Potassium 3.4, Chloride 107, Carbon Dioxide 21.2, Anion Gap 12, BUN 7, Creatinine 0.45 L, Estim Creat Clear Calc 172.33, Est GFR (MDRD) Non-Af 113, BUN/Creatinine Ratio 15.1, G lucose 101 H, Calcium 9.1 Microbiology: Microbiology 10/28/24 14:20 Blood Culture (Wb) - Anticubital Right Blood Culture - Final No growth in 5 days. 10/28/24 14:40 Blood Culture (Wb) #2 - Anticubital Right Blood Culture - Preliminary No growth in 48 hours. 10/28/24 11:09 Urine, Clean Catch Urine Culture - Final Mixed Gram Pos & Gram Neg Org 10/28/24 18:00 Stool Enteric Bacteriology - Final 10/28/24 18:00 Stool Clostridioides difficile (PCR) - Final 10/28/24 18:00 Stool Stool Lactoferrin - Final 10/28/24 18:00 Stool Stool Occult Blood (TRISHA) - Final Occult Blood Positive D/C Instructions Discharge Activity: Return to Normal Activity Weight Bearing Status: Weight bearing as tolerated Call your doctor if your incision/area has: Increased Pain/ Swelling Call your doctor if you observe: Fever of 101 or Higher, Shortness of breath, Dizziness, Swelling in the ankles, Chest pain and Uncontrolled pain DC O2, CPAP, BIPAP Needs Home O2 Discharge instructions: No DC home with Oxygen: No Please Follow Up With: Rukhsana Cao MD When: Call the office for follow-up in 1 to 2 weeks Meaningful Use Info Meaningful Use Meaningful Use Diagnoses (Choose all that apply): None applicable Discharge Plan Admission Admit Date/Time: 10/28/24 14:51 Primary Reason for Your Visit: acute colitis Attending Provider: Tess Vences Primary Care Provider: Buddy Hui Consulting Providers: Rukhsana Cao; Patel Brown Instructions Patient Instructions: Colitis Discharge Orders/Prescriptions Prescriptions: New metronidazole 500 mg tablet 500 mg PO Q8H 8 Days Qty: 24 0RF levofloxacin 750 mg tablet 750 mg PO DAILY Qty: 8 0RF fluconazole 150 mg tablet 150 mg PO DAILY Qty: 2 0RF Rx Instructions: if still symptoms after 72 hrs take the other tab Continued Mounjaro 12.5 mg/0.5 mL pen injector 15 mg subcut QWEEK venlafaxine 75 mg capsule,extended release 24hr 75 mg PO QHS Qty: 90 4RF aspirin 81 MG tablet,chewable 81 mg PO DAILY@0800 Patient Comments: Heart health cholecalciferol (vitamin D3) 1,000 UNIT capsule 1,000 unit PO DAILY Patient Comments: Supplement calcium carbonate 600 MG tablet 300 mg PO BID Patient Comments: supplement glucosamine sulf-chondroitinSA 1 EACH capsule 1 ea PO BID Patient Comments: supplement pantoprazole 40 MG tablet 40 mg PO DAILY Patient Comments: acid reflux med cetirizine 10 MG capsule 10 mg PO DAILY PRN (Reason: Allergies) meloxicam 15 mg tablet 15 mg PO DAILY epinephrine 0.3 mg/0.3 mL auto-injector 0.3 mg IM Q4H hydrochlorothiazide 12.5 mg tablet 12.5 mg PO DAILY losartan 50 mg tablet 50 mg PO BID metformin 500 mg tablet 500 mg PO BID simvastatin 10 mg tablet 10 mg PO DAILY Referrals / Follow Up: Buddy Hui MD [Primary Care Provider] - Within 1 Week Rukhsana Cao MD [Med Staff - Active Staff] - Within 2 Weeks Disposition Disposition (needs filled in before D/C Order can be placed): Home, Self Care Charges/Coding Visit Charges Inpatient E&M: 24929 Disch Hosp >30min
--- NOTE | 2024-11-02 12:10 | PHA.DC.MR.R ---
Pharmacy CT Med Reconciliation Pharmacy Service has performed discharge medication reconciliation for this patient. Medication education papers prepared, patient discharged when counseling was attempted. Medications reviewed. The patient's discharge medication list was reviewed for discrepancies and discrepancies were resolved. Medications at Discharge Home Medications aspirin 81 mg chewable tablet 81 mg PO DAILY@0800 06/05/13 cholecalciferol (vitamin D3) 25 mcg (1,000 unit) capsule 1,000 unit PO DAILY 06/05/13 calcium carbonate 300 mg PO BID 02/20/16 glucosamine sulfate 250 mg-chondroitin sulfate A 200 mg capsule 1 ea PO BID 02/20/16 pantoprazole 40 mg tablet,delayed release 40 mg PO DAILY 02/20/16 cetirizine 10 mg capsule 10 mg PO DAILY PRN Allergies 10/22/18 meloxicam 15 mg tablet 15 mg PO DAILY 12/21/22 epinephrine 0.3 mg/0.3 mL injection, auto-injector 0.3 mg IM Q4H 03/28/23 hydrochlorothiazide 12.5 mg tablet 12.5 mg PO DAILY 03/28/23 losartan 50 mg tablet 50 mg PO BID 03/28/23 metformin 500 mg tablet 500 mg PO BID 03/28/23 simvastatin 10 mg tablet 10 mg PO DAILY 03/28/23 tirzepatide 12.5 mg/0.5 mL subcutaneous pen injector (Lucasundinesh) 15 mg subcut QWEEK 09/12/23 venlafaxine 75 mg capsule,extended release 24 hr 75 mg PO QHS #90 caps 09/18/24 fluconazole 150 mg tablet 150 mg PO DAILY 1 dose #2 tabs 11/02/24 levofloxacin 750 mg tablet 750 mg PO DAILY #8 tabs 11/02/24 metronidazole 500 mg tablet 500 mg PO Q8H 8 days #24 tabs 11/02/24
--- OUTSIDE RECORDS SUMMARY | 2025-02-07 02:50 | XMS RPT_ITS ---
Author Name Auto Generated Organization [facility] Care Team Providers Care Functional Director Name Role Phone LÓPEZ DEAN Attending Physician UnavailANTONIO Sánchez Primary Care Physician Un available LÓPEZ DEAN Attending Physician UnavailANTONIO Sánchez Primary Care Physician Un available LÓPEZ DEAN Unavailable Unavailable ANTONIO HUI Primary Care Physician Un available LÓPEZ DEAN Attending Physician UnavailLÓPEZ Brambila Unavailable Unavailable ANTONIO HUI Primary Care Physician Un available JENNIFER NELSON Unavailable Unavailable ANTONIO HUI Primary Care Physician Un available JENNIFER NELSON Admitting Physician UnavailJENNIFER Meza Attending Physician UnavailANTONIO Sánchez Attending Physician Unava ilable ANTONIO HUI Primary Care Physician Un available ANTONIO HUI Primary Care Physician Un available ODETTE OCAMPO Attending Physician Unavailable ANTONIO HUI Primary Care Physician Un available PODODETTE COULTER Attending Physician Unavailable ANTONIO HUI Primary Care Physician Un available ANTONIO HUI Unavailable Unavailab ANTONIO Weber Attending Physician Unava ilable ANTONIO HUI Primary Care Physician Un available ANTONIO HUI Unavailable Unavailab JENNIFER Granger Attending Physician UnavailANTONIO Sánchez Primary Care Physician Un available ANTONIO HUI Unavailable Unavailab ANTONIO Weber Primary Care Physician Un available PROBLEMS DATE TYPE CONDITION / CODE ATTENDING STATUS [facility] 01/29/2025 Active Hot flashes / R23.2(ICD-10) ANTONIO HUI Active [facility] 10/07/2023 Active Class 1 obesity with serious comorbidity and body mass index (BMI) of 31.0 to 31.9 in adult, unspecified obesity type / E66.811(ICD-10) ANTONIO HUI Active [facility] 10/07/2023 Active Class 1 obesity with serious comorbidity and body mass index (BMI) of 31.0 to 31.9 in adult, unspecified obesity type / Z68.31(ICD-10) ANTONIO HUI Active [facility] 01/29/2025 Active Viral URI with c ough / J06.9(ICD-10) ANTONIO HUI Active [facility] 01/29/2025 Active Encounter for immunization / Z23(ICD-10) ANTONIO HUI Active [facility] 01/29/2025 Active Encounter for sc reening for COVID-19 / Z11.52(ICD-10) ANTONIO HUI Active [facility] 09/18/2018 Active DDD (degenerativ e disc disease), cervical / M50.30(ICD-10) LÓPEZ DEAN Active [facility] 01/14/2025 Active Cervical spondyl osis without myelopathy / M47.812(ICD-10) LÓPEZ DEAN Active [facility] 01/14/2025 Active Neck pain / M54.2(ICD-10) LÓPEZ DEAN Active [facility] 12/20/2024 Active Colitis / K52.9(ICD-10) JENNIFER NELSON Active [facility] 11/12/2024 Active Essential hypert ension / I10(ICD-10) JENNIFER NELSON Active [facility] 10/07/2023 Active Class 1 obesity with serious comorbidity and body mass index (BMI) of 33.0 to 33.9 in adult, unspecified obesity type / E66.811(ICD-10) ANTONIO HUI Active [facility] 10/07/2023 Active Class 1 obesity with serious comorbidity and body mass index (BMI) of 33.0 to 33.9 in adult, unspecified obesity type / Z68.33(ICD-10) ANTONIO HUI Active [facility] 12/15/2016 Active Hyperlipidemia, unspecified hyperlipidemia type / E78.5(ICD-10) ANTONIO HUI Active [facility] 12/15/2016 Active Primary hyperten kylee / I10(ICD-10) ANTONIO HUI Active [facility] 11/05/2024 Active Appendicolith / K38.9(ICD-10) ANTONIO HUI Active [facility] 11/05/2024 Active Nausea / R11.0(ICD-10) ANTONIO YI Active [facility] 11/05/2024 Active Decreased appeti te / R63.0(ICD-10) ANTONIO HUI Active [facility] 10/03/2024 Active Cervical disc di sorder with radiculopathy of cervical region / M50.10(ICD-10) LÓPEZ DEAN Active [facility] 08/14/2022 Active S/P bilateral br east reduction / Z98.890(ICD-10) LÓPEZ DEAN Active [facility] 12/27/2018 Active Diabetes mellitu s type II (HCC) / E11.9(ICD-10) LÓPEZ DEAN Active [facility] 09/05/2024 Active Cervical disc di sorder at C6-C7 level with radiculopathy / M50.123(ICD-10) LÓPEZ DEAN Active [facility] 12/15/2016 Active Gastroesophageal reflux disease, unspecified whether esophagitis present / K21.9(ICD-10) PODODETTE COULTER Active [facility] RESULTS DEPRECATED HGB A1C BLD Collected: 02/07 7:55 AM Status: F Source: [facility] Order Comment: Specimen Type : BLOOD SPECIMEN Ordering Facility: [facility] Address: [address] [place] [address] TYPE CODE TESTS RESULT OUT OF RANGE REFERENCE UNITS LAB 4548-4(LOINC) HbA1c MFr Bld 4.9 4.3-5.6 % Result Comment: [place] [employer] bet[employer] Association guidelines indicate that patients with HgbA1c in the range 5.7-6.4% are at increased risk for development of diabetes, and intervention by lifestyle modification may be beneficial. HgbA1c greater or equal to 6.5% is considered diagnostic of diabetes. LAB 84238-8(LOINC) Est. average glucose Bld gHb Est-mCnc 94 mg/dL Result Comment: eAG: (Estima misbah average glucose) is a calculated value from HgbA1c and is b2b outside sales representative of the average blood glucose level in the last 2-3 month period. Performed By: [facility] CLIA [id number] [address] [place] [address] STATES OF [place] COMP METAB 2000 PNL SERPL Collected: 7:55 AM Status: F Source: [facility] Order Comment: Specimen Type : BLOOD SPECIMEN Ordering Facility: [facility] Address: [address] [place] [address] TYPE CODE TESTS RESULT OUT OF RANGE REFERENCE UNITS LAB 2885-2(LOINC) Prot SerPl-mCnc 6.6 6.3-8.0 g/dL LAB 1751-7(LOINC) Albumin SerPl-mCnc 4.5 3.9-4.9 g/dL LAB 22687-7(LOINC) Calcium SerPl-mCnc 8.8 8.5-10.2 mg/dL LAB 1975-2(LOINC) Bilirub SerPl-mCnc 0.3 0.2-1.3 mg/dL LAB 6768-6(LOINC) ALP SerPl-cCnc 67 34-123 U/L LAB 1920-8(LOINC) AST SerPl-cCnc 19 13-35 U/L LAB 1742-6(LOINC) ALT SerPl-cCnc 18 7-38 U/L LAB 2345-7(LOINC) Glucose SerPl-mCnc 102 High 74-99 mg/dL Result Comment: The [place] Diabetes Association (ADA) provides guidance for cutoff [...] Standards of Medical Care in Diabetes 2016, [place] Diabetes Association. Diabetes Care. 2016.39(Suppl 1). LAB 3094-0(LOINC) BUN SerPl-mCnc 14 7-21 mg/dL LAB 2160-0(LOINC) Creat SerPl-mCnc 0.51 Low 0.58-0.96 mg/dL LAB 2951-2(LOINC) Sodium SerPl-sCnc 141 136-144 mmol/L LAB 2823-3(LOINC) Potassium SerPl-sCnc 4.1 3.7-5.1 mmol/L LAB 2075-0(LOINC) Chloride SerPl-sCnc 107 98-107 mmol/L LAB 2027-9(LOINC) CO2 SerPl-sCnc 25 22-30 mmol/L LAB 56320-8(LOINC) Anion Gap SerPl-sCnc 9 8-15 mmol/L LAB 82758-4(LOINC) eGFRcr SerPlBld CKD-EPI 2020 110 >=60 mL/min/1. 73m??? Result Comment: Estimated Gl omerular Filtration Rate (eGFR) is calculated using the 2020 CKD-EPI creatinine equation. This equation utilizes serum creatinine, sex, and age as parameters. The creatinine assay has traceable calibration to isotope dilution-mass spectrometry. Refer to KDIGO guidelines for clinical interpretation. In patients with unstable renal function, e.g. those with acute kidney injury, the eGFR may not accurately reflect actual GFR. Performed By: [facility] CLIA [id number] [address] [place] [address] STATES OF [facility] FLUABV+SARS-COV-2+RSV PNL RE SP WILDER+PROBE Observed: 01/29/2025 8:36 AM Status: F Source: [facility] SARS-COV-2 (AGENT OF COVID-1 9) RNA: Not detectedINFLUENZA A RNA: Not detectedINFLUENZA B RNA: Not detectedRESPIRATORY SYNCYTIAL VIRUS (RSV) RNA: Not detected Performed By: [facility] CLIA [id number] OF [place] Observed: 01/29/2025 8:20 AM Status: COMPLETED Source: [facility] Office Visit (FAMPWS) MALIK NEELY ([id number]) 1970 F Date Time Provider Department 01/29/25 8:20 AM [facility] During your visit today, we recorded the following information about you: Temperature Pulse Respiration Blood pressure 97.5 degrees 98/minute 14/minute 124/80 Weight Height 92.4 kg 1.702 m Antonio Hui MD 01/29/2025 8:49 AM Signed Chief Complaint Patient presents with: Diabetes: Follow up Recording using [employer] software for draft documentation of the visit was discussed with the patient/authorized b2b outside sales representative; all questions welcomed and answered. Patient/authorized b2b outside sales representative agreed to proceed HPI Malik Neely is a 54 year old female who presents here today for Above Complaints. Malik Neely is a 54-year-old female with a history of diabetes, obesity, GERD, and HTN, presenting for follow-up and evaluation of URI symptoms. Diabetes: - Diagnosed with diabetes based on a single A1c reading of 6.5% at [facility] in 2019. - Last A1c in October was 4.6%. - Taking Mounjaro and metformin. - Monitoring blood glucose levels daily, with readings typically between 85-100 mg/dL; occasional elevation to 104 mg/dL after consuming white wine. - No episodes of hypoglycemia; denies symptoms such as shakiness, sweating, nausea, or confusion. - No polyuria, polydipsia, polyphagia, vision changes, or paresthesia in extremities. - Regularly examines feet; no rashes, wounds, or redness observed. Obesity: - Weight loss of approximately 70 lbs over the past 3 years. - Recent weight loss of 5 lbs in the last month. - Reports significant reduction in clothing sizes. - Adheres to a healthy diet and exercise regimen. - Currently on Mounjaro 15 mg; inquires about reducing the dosage due to minimal weight loss at this dose compared to 7.5 mg and 10 mg. - No side effects from Mounjaro. URI Symptoms: - Onset of sore throat on Tuesday, followed by a dry cough starting late last night. - Clear nasal discharge; denies dyspnea, wheezing, chest pain, or chest congestion. - Reports headache, ear pain, nasal congestion, and sinus pain/pressure in the forehead and around the nose. - No anosmia or ageusia. - Mild fatigue, but no significant increase in tiredness or feeling run down. - Taking Coricidin for symptom relief, which aids in sleep. - Recent exposure to multiple sick contacts, all of whom tested negative for flu and COVID-19. - Denies nausea, vomiting, diarrhea, urinary symptoms, or rash. GERD: - Managed with Protonix. - No recent issues with heartburn, odynophagia, or dysphagia. HTN: - Previously on hydrochlorothiazide for edema due to frequent flying; discontinued during a hospital stay due to dehydration. - Blood pressure reportedly well-controlled without hydrochlorothiazide. Menopausal Symptoms: - Taking Effexor for hot flashes, which has significantly reduced the frequency from 20 per hour to 3 per day. Past medical history, appointments, medications, allergies reviewed. Previous Medical History PAST MEDICAL HISTORY Diagnosis Date Acute meniscal tear of left knee 2013 s/p repair Arthritis of left shoulder region mild DDD (degenerative disc disease), cervical DDD (degenerative disc disease), lumbar Hetal Ortho-Dr Castillo Diabetes mellitus type II (HCC) A1c 6.5 at [facility] 10/2018 Endometriosis GERD (gastroesophageal reflux disease) Hot flashes [...] Hypertension Father Coronary Artery Disease Father 59 MD in 2010- LDa Thyroid Sister other (Gallbladder removed) Sister No Known Problems Sister Thyroid Sister No Known Problems Brother Heart Maternal Grandmother No Known Problems Maternal Grandfather Rheumatologic disease Paternal Grandmother arthritis No Known Problems Paternal Grandfather Patient Allergies Allergies Allergen Reactions Codeine Anaphylaxis Contrast Dye Anaphylaxis Pineapple Rash Shellfish Containing Products GI Upset Squash GI Upset [place] Other: See Comments Sulfa Dyne Anaphylaxis Maypearl GI Upset Current Medications Current Outpatient Medications on File Prior to Visit Medication Sig meloxicam (MOBIC) 15 mg tablet Take 1 tablet by mouth once daily. tirzepatide (MOUNJARO) 15 mg/0.5 mL pen injector Inject 15 mg subcutaneously one time a week. losartan (COZAAR) 50 mg tablet Take two tablets daily metFORMIN (GLUCOPHAGE) 500 mg tablet Take 1 tablet by mouth two times a day with meals. . pantoprazole DR (PROTONIX) 40 mg tablet Take 1 tablet by mouth once daily. simvastatin (ZOCOR) 10 mg tablet Take 1 tablet by mouth daily at bedtime. glucosamine/msm/chondroit sulf (GLUCOSAMINE [id number] ORAL) EPINEPHrine (EPIPEN) 0.3 mg/0.3 mL auto-injector 1 INJECTION NEEDED IN THIGH Cholecalciferol, Vitamin D3, 25 mcg (1,000 unit) cap Take by mouth. turmeric 400 mg cap Take 1 capsule by mouth once daily. venlafaxine ER (EFFEXOR XR) 75 mg 24 hr capsule Take 1 capsule by mouth once daily. Aspirin 81 mg Tab Take 81 mg by mouth once daily. CALCIUM CARBONATE/VITAMIN D3 (CALTRATE 600 + D ORAL) Take by mouth twice daily. hydroCHLOROthiazide 12.5 mg tablet Take 1 tablet by mouth once daily. (Patient not taking: Reported on 01/29/2025) Cetirizine 10 mg cap Take by mouth. (Patient not taking: Reported on 01/29/2025) No current facility-administered medications on file prior to visit. Social History Social History[1] Review of Symptoms REVIEW OF SYSTEMS GENERAL: See HPI RESPIRATORY: See HPI CARDIOVASCULAR: Negative for chest pain, leg swelling, hypertension, CHF or palpitations GI: No nausea, vomiting, or diarrhea SKIN: Negative for lesions, rash, and itching EXAM: BP 124/80 Pulse 98 Temp 36.4 ?C (97.5 ?F) Resp 14 Ht 170.2 cm (5' 7) Wt 92.4 kg (203 lb 9.6 oz) SpO2 97% BMI 31.89 kg/m? General Appearance: Ill appearing, non toxic, alert, in no acute distress, well-hydrated, well nourished.. Skin: Skin color, texture, turgor normal, no suspicious rashes or lesions. Head: Normocephalic, no masses, lesions, tenderness or [...] discoloration, clubbing or cyanosis. Good capillary refill. Feet: Shoes and socks removed, No deformities, ulcers, calluses, normal distal pulses, and sensitive to 10 gm monofilament . Health Maintenance List Depression Screening Never done Anxiety Screening Never done Diabetic Foot Exam due on 10/06/2024 Covid-19 Vaccine(2024- season) due on 10/29/2024 Pneumococcal Vaccine: 50+(1 of 2 - PCV) due on 04/30/2025 Influenza Vaccine(1) due on 08/27/2025 Urine Albumin:Creatinine Ratio due on 04/30/2025 HbA1C due on 05/05/2025 Dilated Retinal Exam due on 05/25/2025 Mammogram Screening due on 09/18/2025 LDL Cholesterol due on 11/05/2025 Annual PCP Team Chronic Disease Visit due on 01/29/2026 DTaP,Tdap,Td Vaccine(3 - Td or Tdap) due on 09/05/2032 Colorectal Cancer Screening due on 12/20/2034 Hepatitis B Vaccine Completed Shingrix Vaccine Completed Cervical Cancer Screening Discontinued Hepatitis C Screening Discontinued HIV Screening Discontinued Data reviewed Latest Ref Rng 11/05/2024 WBC 3.70 - 11.00 k/uL 7.94 RBC 3.90 - 5.20 m/uL 4.28 Hemoglobin 11.5 - 15.5 g/dL 13.3 Hematocrit 36.0 - 46.0 % 39.2 MCV 80.0 - 100.0 fL 91.6 MCH 26.0 - 34.0 pg 31.1 MCHC 30.5 - 36.0 g/dL 33.9 RDW-CV 11.5 - 15.0 % 12.5 Platelet Count 150 - 400 k/uL 380 MPV 9.0 - 12.7 fL 11.2 Neut% % 67.5 Abs Neut (ANC) 1.45 - 7.50 k/uL 5.36 Lymph% % 19.5 Abs Lymph 1.00 - 4.00 k/uL 1.55 [place]% % 9.2 Abs [place] <0.87 k/uL 0.73 Eosin% % 3.0 Abs Eosin <0.46 k/uL 0.24 Baso% % 0.4 Abs Baso <0.11 k/uL 0.03 Immature Gran % % 0.4 IMMATURE GRANS (ABS) <0.10 k/uL 0.03 NRBC /100 WBC 0.0 Absolute nRBC <0.01 k/uL <0.01 DTYPE Auto Protein, Total 6.3 - 8.0 g/dL 7.0 Albumin 3.9 - 4.9 g/dL 4.2 Calcium 8.5 - 10.2 mg/dL 9.9 Bilirubin, Total 0.2 - 1.3 mg/dL 0.2 Alkaline Phosphatase 34 - 123 U/L 66 AST 13 - 35 U/L 38 (H) ALT 7 - 38 U/L 48 (H) Glucose 74 - 99 mg/dL 88 BUN 7 - 21 mg/dL 8 Creatinine 0.58 - 0.96 mg/dL 0.61 Sodium 136 - 144 mmol/L 137 Potassium 3.7 - 5.1 mmol/L 4.4 Chloride 98 - 107 mmol/L 100 CO2 22 - 30 mmol/L 25 Anion Gap 8 - 15 mmol/L 12 eGFR >=60 mL/min/1.73m? 105 Total Cholesterol, Nonfasting <200 mg/dL 162 Triglycerides, Nonfasting <150 mg/dL 87 HDL Cholesterol, Nonfasting >39 mg/dL 49 LDL Cholesterol Calculated, Nonfasting <100 mg/dL 97 Non HDL Cholesterol, Nonfasting <130 mg/dL 113 VLDL Cholesterol, Nonfasting <30 mg/dL 14 Total Chol/HDL Ratio, Nonfasting <5.10 mg/dL 3.31 LDL/HDL Ratio, Nonfasting <2.54 mg/dL 1.98 Hemoglobin A1C 4.3 - 5.6 % 4.6 Estimated Average Glucose mg/dL 85 Legend: (H) High 1. Diabetes mellitus type II (HCC) (E11.9) 2. Class 1 obesity with serious comorbidity and body mass index (BMI) of 31.0 to 31.9 in adult, unspecified obesity type (E66.811) - HbA1c last measured at 4.6% in October; home glucose readings generally between 85-100 mg/dL, with occasional elevations to 104 mg/dL after white wine consumption. - No symptoms of hyperglycemia or hypoglycemia reported; no diabetic neuropathy or foot changes on exam. - Weight loss of 70 lbs over 3 years; down 5 lbs since last month; continues healthy diet and exercise. - Continue metformin as prescribed. - Continue Mounjaro 15 mg; discussed option to reduce dosage if desired, but patient elects to continue current dose for another 6 months. - Order repeat HbA1c in one week (after 3 months since last test). - Follow-up in 6 months to monitor HbA1c, weight, and overall diabetes management. 3. Viral URI with cough (J06.9) - Symptoms began Tuesday with sore throat, progressing to dry cough, headache, ear pain, nasal congestion, and sinus pressure; no shortness of breath, chest pain, or chest congestion. - Sick contacts tested negative for flu and COVID. - Differential includes viral URI, COVID, and RSV. - COVID, flu, and RSV testing performed; results pending. - Supportive care recommended: fluids, hand washing, mask use, quercetin for cough, nasal saline rinses or Neti pot for congestion, tea with honey, salt water gargles, and Tylenol or ibuprofen for headache. - Advised to seek medical attention for high fever, sudden chest pain with shortness of breath, or confusion. 4. Primary hypertension (I10) - Blood pressure within normal range today; hydrochlorothiazide discontinued previously due to dehydration. - Continue current management. 5. Hyperlipidemia, unspecified hyperlipidemia type (E78.5) - Continue simvastatin as prescribed; refill provided. 6. Gastroesophageal reflux disease, unspecified whether esophagitis present (K21.9) - No current symptoms of heartburn, dysphagia, or odynophagia. - Continue Protonix as prescribed; refill provided. 7. Hot flashes (R23.2) - Well-controlled with Effexor; patient reports significant improvement in symptoms. - Continue Effexor as prescribed. 8. Encounter for immunization (Z23) - COVID vaccine deferred until after resolution of current symptoms and pending test results. 9. Encounter for screening for COVID-19 (Z11.52) - COVID testing performed due to recent exposure and current symptoms; results pending. Antonio Hui MD [1] Social History Tobacco Use Smoking status: Former Current packs/day: 0.00 Average packs/day: 0.5 packs/day for 10.0 years (5.0 ttl pk-yrs) Types: Cigarettes Start date: 04/29/2001 Quit date: 04/30/2011 Years since quittin.7 Smokeless tobacco: Never Vaping Use Vaping status: Never Used Substance Use Topics Alcohol use: Not Currently Alcohol/week: 6.0 standard drinks of alcohol Types: 6 Glasses of wine per week Drug use: Never Antonio Hui MD 01/29/2025 8:34 AM Addendum - Refills for metformin, Mounjaro, simvastatin, and Protonix have been sent to your pharmacy. - Discontinue hydrochlorothiazide; it is no longer needed for your blood pressure. - Continue Effexor at your current dose for hot-flash control. - Keep Mounjaro at 15 mg daily for the next six months; if you decide you?d like to lower the dose sooner, call our office and we?ll send in a reduced dosage. - You had a nasal swab today for COVID-19, flu, and RSV; we will call with results when available. - If your COVID test is positive and you?d like antiviral treatment (Paxlovid or Lagevrio), let us know and we?ll arrange a prescription. - For your current cold symptoms, drink plenty of fluids, wash hands often, and wear a mask around others. - Use Tylenol or ibuprofen for headache relief. Soothe your throat with tea and honey, warm salt-water gargles, and Chloraseptic lozenges. Use nasal saline rinses for congestion. - Monitor for high fever that does not respond to medication, sudden chest pain with shortness of breath, or new confusion; if any of these occur, seek emergency care. - Continue daily blood sugar checks at home; you reported levels between 85 and 100 mg/dL. - Examine your feet regularly--tops and bottoms--for any wounds, redness, or rashes, and report any changes promptly. - We will schedule blood work in about one week to check your A1c; our office will call you to arrange the lab visit. - Plan to follow up in six months for routine labs, A1c review, and blood pressure and weight check. - You may postpone the COVID vaccine until after you?ve recovered; schedule it as a nurse visit here, at a pharmacy, or through the health department whenever it?s convenient. - Please stop at the main desk before you leave to scheduled your MAMMOGRAM for routine breast cancer screening. Allergies As of Date: 01/29/2025 Noted Allergy Reaction CODEINE 10/06/2011 10 - Anaphylaxis CONTRAST DYE 10/06/2011 10 - Anaphylaxis PINEAPPLE 10/28/2024 2 - Rash SHELLFISH CONTAINING PRODUCTS 04/29/2016 8 - GI Upset SQUASH 03/13/2018 8 - GI Upset STRAWBERRY 03/13/2018 14 - Other: See Comments SULFA DYNE 10/06/2011 10 - Anaphylaxis WALNUT 03/13/2018 8 - GI Upset Date Reviewed: 01/29/2025 Reviewed by: Staci Langley MA - Fully Assessed Reason for Visit: Diabetes [34] Cmt: Follow up Primary Visit Diagnosis:Diabetes mellitus type II (HCC) [E11.9] Other Visit Diagnoses:Viral URI with cough [J06.9] Primary hypertension [I10] Hyperlipidemia, unspecified hyperlipidemia type [E78.5] Gastroesophageal reflux disease, unspecified whether esophagitis present [K21.9] Class 1 obesity with serious comorbidity and body mass index (BMI) of 31.0 to 31.9 in adult, unspecified obesity type [E66.811, Z68.31] Hot flashes [R23.2] Encounter for immunization [Z23] Encounter for screening for COVID-19 [Z11.52] Order(s):tirzepatide (MOUNJARO) 15 mg/0.5 mL pen injectorInject 15 mg subcutaneously one time a week.Disp: 6 mLRfl: 1 simvastatin (ZOCOR) 10 mg tabletTake 1 tablet by mouth daily at bedtime.Disp: 90 tabletRfl: [address] (PROTONIX) 40 mg tabletTake 1 tablet by mouth once daily.Disp: 90 tabletRfl: 1 metFORMIN (GLUCOPHAGE) 500 mg tabletTake 1 tablet by mouth two times a day with meals. .Disp: 180 tabletRfl: 1 COVID AND INFLUENZA A/B AND RSV PCR, ROUTINE [SQCVFLRS] Order #: [id number]. #:[id number] FOLLOW UP IN PRIMARY CARE (FAMILY AND INTERNAL MEDICINE) [[id number]] Order #: [id number]: 1 FUTURE COMPREHENSIVE METABOLIC PANEL [SQCMP] Order #: [id number] FUTURE HEMOGLOBIN A1C [XWQRR2F] Order #: [id number] FUTURE Prescriptions as of 01/29/2025 - tirzepatide (MOUNJARO) 15 mg/0.5 mL pen injector Inject 15 mg subcutaneously one time a week. - simvastatin (ZOCOR) 10 mg tablet Take 1 tablet by mouth daily at bedtime. - pantoprazole DR (PROTONIX) 40 mg tablet Take 1 tablet by mouth once daily. - metFORMIN (GLUCOPHAGE) 500 mg tablet Take 1 tablet by mouth two times a day with meals. . - meloxicam (MOBIC) 15 mg tablet Take 1 tablet by mouth once daily. - losartan (COZAAR) 50 mg tablet Take two tablets daily - glucosamine/msm/chondroit sulf (GLUCOSAMINE [id number] ORAL) - EPINEPHrine (EPIPEN) 0.3 mg/0.3 mL auto-injector 1 INJECTION NEEDED IN THIGH - Cholecalciferol, Vitamin D3, 25 mcg (1,000 unit) cap Take by mouth. - turmeric 400 mg cap Take 1 capsule by mouth once daily. - venlafaxine ER (EFFEXOR XR) 75 mg 24 hr capsule Take 1 capsule by mouth once daily. - Aspirin 81 mg Tab Take 81 mg by mouth once daily. - CALCIUM CARBONATE/VITAMIN D3 (CALTRATE 600 + D ORAL) Take by mouth twice daily. Problem List As Of Date 01/29/2025 Noted Resolved Hypertension [I10] Hyperlipidemia [E78.5] GERD [...] breast reduction [Z98.890] 08/14/2022 Obesity [E66.9] 10/07/2023 Hot flashes [R23.2] Other instructions from your clinician: - Refills for metformin, Mounjaro, simvastatin, and Protonix have been sent to your pharmacy. - Discontinue hydrochlorothiazide; it is no longer needed for your blood pressure. - Continue Effexor at your current dose for hot-flash control. - Keep Mounjaro at 15 mg daily for the next six months; if you decide you?d like to lower the dose sooner, call our office and we?ll send in a reduced dosage. - You had a nasal swab today for COVID-19, flu, and RSV; we will call with results when available. - If your COVID test is positive and you?d like antiviral treatment (Paxlovid or Lagevrio), let us know and we?ll arrange a prescription. - For your current cold symptoms, drink plenty of fluids, wash hands often, and wear a mask around others. - Use Tylenol or ibuprofen for headache relief. Soothe your throat with tea and honey, warm salt-water gargles, and Chloraseptic lozenges. Use nasal saline rinses for congestion. - Monitor for high fever that does not respond to medication, sudden chest pain with shortness of breath, or new confusion; if any of these occur, seek emergency care. - Continue daily blood sugar checks at home; you reported levels between 85 and 100 mg/dL. - Examine your feet regularly--tops and bottoms--for any wounds, redness, or rashes, and report any changes promptly. - We will schedule blood work in about one week to check your A1c; our office will call you to arrange the lab visit. - Plan to follow up in six months for routine labs, A1c review, and blood pressure and weight check. - You may postpone the COVID vaccine until after you?ve recovered; schedule it as a nurse visit here, at a pharmacy, or through the health department whenever it?s convenient. - Please stop at the main desk before you leave to scheduled your MAMMOGRAM for routine breast cancer screening. Prescriptions ordered this encounter Disp Refills Start End TIRZEPATIDE 15 MG/0.5 ML SUBCUTANEOU* 6 mL 1 01/29/2025 07/28/2025 Route: SQ Sig: Inject 15 mg subcutaneously one time a week. SIMVASTATIN 10 MG TABLET 90 t* 1 01/29/2025 07/28/2025 Route: PO Sig: Take 1 tablet by mouth daily at bedtime. PANTOPRAZOLE 40 MG TABLET,DELAYED RE* 90 t* 1 01/29/2025 07/28/2025 Route: PO Sig: Take 1 tablet by mouth once daily. METFORMIN 500 MG TABLET 180 * 1 01/29/2025 07/28/2025 Route: PO Sig: Take 1 tablet by mouth two times a day with meals. . Medications Discontinued During This Encounter Prescriptions - fluconazole (DIFLUCAN) 150 mg tablet (Discontinued) - levoFLOXacin (LEVAQUIN) 750 mg tablet (Discontinued) Take 750 mg by mouth once daily. - metroNIDAZOLE (FLAGYL) 500 mg tablet (Discontinued) Take 500 mg by mouth. - ondansetron orally disintegrating (ZOFRAN ODT) 4 mg disintegrating tablet (Discontinued) Reported on 01/14/2025 - peg 3350-Electrolytes (GOLYTELY) 236-22.74-6.74 -5.86 gram suspension (Discontinued) Refer to printed prep instructions from your provider. - meloxicam (MOBIC) 15 mg tablet (Discontinued) Take 1 tablet by mouth once daily. - Cetirizine 10 mg cap (Discontinued) Reported on 01/29/2025 - simvastatin (ZOCOR) 10 mg tablet (Discontinued) Take 1 tablet by mouth daily at bedtime. - metFORMIN (GLUCOPHAGE) 500 mg tablet (Discontinued) Take 1 tablet by mouth two times a day with meals. . - pantoprazole DR (PROTONIX) 40 mg tablet (Discontinued) Take 1 tablet by mouth once daily. - tirzepatide (MOUNJARO) 15 mg/0.5 mL pen injector (Discontinued) Inject 15 mg subcutaneously one time a week. - hydroCHLOROthiazide 12.5 mg tablet (Discontinued) Reported on 01/29/2025 Encounter Status:Closed by ANTONIO HUI on 01/29/25 PROGRESS Observed: 01/29/2025 8:10 AM Status: COMPLETED Source: [facility] ID: [id number] Author: ANTONIO HUI MD Service: ? Author Type: Physician Type: Progress Notes Filed: 01/29/2025 08:49 Note Text: Chief Complaint Patient presents with: Diabetes: Follow up Recording using [employer] software for draft documentation of the visit was discussed with the patient/authorized b2b outside sales representative; all questions welcomed and answered. Patient/authorized b2b outside sales representative agreed to proceed HPI Malik Neely is a 54 year old female who presents here today for Above Complaints. Malik Neely is a 54-year-old female with a history of diabetes, obesity, GERD, and HTN, presenting for follow-up and evaluation of URI symptoms. Diabetes: - Diagnosed with diabetes based on a single A1c reading of 6.5% at [facility] in 2019. - Last A1c in October was 4.6%. - Taking Mounjaro and metformin. - Monitoring blood glucose levels daily, with readings typically between 85-100 mg/dL; occasional elevation to 104 mg/dL after consuming white wine. - No episodes of hypoglycemia; denies symptoms such as shakiness, sweating, nausea, or confusion. - No polyuria, polydipsia, polyphagia, vision changes, or paresthesia in extremities. - Regularly examines feet; no rashes, wounds, or redness observed. Obesity: - Weight loss of approximately 70 lbs over the past 3 years. - Recent weight loss of 5 lbs in the last month. - Reports significant reduction in clothing sizes. - Adheres to a healthy diet and exercise regimen. - Currently on Mounjaro 15 mg; inquires about reducing the dosage due to minimal weight loss at this dose compared to 7.5 mg and 10 mg. - No side effects from Mounjaro. URI Symptoms: - Onset of sore throat on Tuesday, followed by a dry cough starting late last night. - Clear nasal discharge; denies dyspnea, wheezing, chest pain, or chest congestion. - Reports headache, ear pain, nasal congestion, and sinus pain/pressure in the forehead and around the nose. - No anosmia or ageusia. - Mild fatigue, but no significant increase in tiredness or feeling run down. - Taking Coricidin for symptom relief, which aids in sleep. - Recent exposure to multiple sick contacts, all of whom tested negative for flu and COVID-19. - Denies nausea, vomiting, diarrhea, urinary symptoms, or rash. GERD: - Managed with Protonix. - No recent issues with heartburn, odynophagia, or dysphagia. HTN: - Previously on hydrochlorothiazide for edema due to frequent flying; discontinued during a hospital stay due to dehydration. - Blood pressure reportedly well-controlled without hydrochlorothiazide. Menopausal Symptoms: - Taking Effexor for hot flashes, which has significantly reduced the frequency from 20 per hour to 3 per day. Past medical history, appointments, medications, allergies reviewed. Previous Medical History PAST MEDICAL HISTORY Diagnosis Date Acute meniscal tear of left knee 2013 s/p repair Arthritis of left shoulder region mild DDD (degenerative disc disease), cervical DDD (degenerative disc disease), lumbar [facility]-Dr Castillo Diabetes mellitus type II (HCC) A1c 6.5 at [facility] 10/2018 Endometriosis GERD (gastroesophageal reflux disease) Hot flashes [...] Hypertension Father Coronary Artery Disease Father 59 MD in 2010- LDa Thyroid Sister other (Gallbladder removed) Sister No Known Problems Sister Thyroid Sister No Known Problems Brother Heart Maternal Grandmother No Known Problems Maternal Grandfather Rheumatologic disease Paternal Grandmother arthritis No Known Problems Paternal Grandfather Patient Allergies Allergies Allergen Reactions Codeine Anaphylaxis Contrast Dye Anaphylaxis Pineapple Rash Shellfish Containing Products GI Upset Squash GI Upset [place] Other: See Comments Sulfa Dyne Anaphylaxis Maypearl GI Upset Current Medications Current Outpatient Medications on File Prior to Visit Medication Sig meloxicam (MOBIC) 15 mg tablet Take 1 tablet by mouth once daily. tirzepatide (MOUNJARO) 15 mg/0.5 mL pen injector Inject 15 mg subcutaneously one time a week. losartan (COZAAR) 50 mg tablet Take two tablets daily metFORMIN (GLUCOPHAGE) 500 mg tablet Take 1 tablet by mouth two times a day with meals. . pantoprazole DR (PROTONIX) 40 mg tablet Take 1 tablet by mouth once daily. simvastatin (ZOCOR) 10 mg tablet Take 1 tablet by mouth daily at bedtime. glucosamine/msm/chondroit sulf (GLUCOSAMINE [id number] ORAL) EPINEPHrine (EPIPEN) 0.3 mg/0.3 mL auto-injector 1 INJECTION NEEDED IN THIGH Cholecalciferol, Vitamin D3, 25 mcg (1,000 unit) cap Take by mouth. turmeric 400 mg cap Take 1 capsule by mouth once daily. venlafaxine ER (EFFEXOR XR) 75 mg 24 hr capsule Take 1 capsule by mouth once daily. Aspirin 81 mg Tab Take 81 mg by mouth once daily. CALCIUM CARBONATE/VITAMIN D3 (CALTRATE 600 + D ORAL) Take by mouth twice daily. hydroCHLOROthiazide 12.5 mg tablet Take 1 tablet by mouth once daily. (Patient not taking: Reported on 01/29/2025) Cetirizine 10 mg cap Take by mouth. (Patient not taking: Reported on 01/29/2025) No current facility-administered medications on file prior to visit. Social History Social History[1] Review of Symptoms REVIEW OF SYSTEMS GENERAL: See HPI RESPIRATORY: See HPI CARDIOVASCULAR: Negative for chest pain, leg swelling, hypertension, CHF or palpitations GI: No nausea, vomiting, or diarrhea SKIN: Negative for lesions, rash, and itching EXAM: BP 124/80 Pulse 98 Temp 36.4 ?C (97.5 ?F) Resp 14 Ht 170.2 cm (5' 7) Wt 92.4 kg (203 lb 9.6 oz) SpO2 97% BMI 31.89 kg/m? General Appearance: Ill appearing, non toxic, alert, in no acute distress, well-hydrated, well nourished.. Skin: Skin color, texture, turgor normal, no suspicious rashes or lesions. Head: Normocephalic, no masses, lesions, tenderness or [...] discoloration, clubbing or cyanosis. Good capillary refill. Feet: Shoes and socks removed, No deformities, ulcers, calluses, normal distal pulses, and sensitive to 10 gm monofilament . Health Maintenance List Depression Screening Never done Anxiety Screening Never done Diabetic Foot Exam due on 10/06/2024 Covid-19 Vaccine( season) due on 10/29/2024 Pneumococcal Vaccine: 50+(1 of 2 - PCV) due on 04/30/2025 Influenza Vaccine(1) due on 08/27/2025 Urine Albumin:Creatinine Ratio due on 04/30/2025 HbA1C due on 05/05/2025 Dilated Retinal Exam due on 05/25/2025 Mammogram Screening due on 09/18/2025 LDL Cholesterol due on 11/05/2025 Annual PCP Team Chronic Disease Visit due on 01/29/2026 DTaP,Tdap,Td Vaccine(3 - Td or Tdap) due on 09/05/2032 Colorectal Cancer Screening due on 12/20/2034 Hepatitis B Vaccine Completed Shingrix Vaccine Completed Cervical Cancer Screening Discontinued Hepatitis C Screening Discontinued HIV Screening Discontinued Data reviewed Latest Ref Rng 11/05/2024 WBC 3.70 - 11.00 k/uL 7.94 RBC 3.90 - 5.20 m/uL 4.28 Hemoglobin 11.5 - 15.5 g/dL 13.3 Hematocrit 36.0 - 46.0 % 39.2 MCV 80.0 - 100.0 fL 91.6 MCH 26.0 - 34.0 pg 31.1 MCHC 30.5 - 36.0 g/dL 33.9 RDW-CV 11.5 - 15.0 % 12.5 Platelet Count 150 - 400 k/uL 380 MPV 9.0 - 12.7 fL 11.2 Neut% % 67.5 Abs Neut (ANC) 1.45 - 7.50 k/uL 5.36 Lymph% % 19.5 Abs Lymph 1.00 - 4.00 k/uL 1.55 [place]% % 9.2 Abs [place] <0.87 k/uL 0.73 Eosin% % 3.0 Abs Eosin <0.46 k/uL 0.24 Baso% % 0.4 Abs Baso <0.11 k/uL 0.03 Immature Gran % % 0.4 IMMATURE GRANS (ABS) <0.10 k/uL 0.03 NRBC /100 WBC 0.0 Absolute nRBC <0.01 k/uL <0.01 DTYPE Auto Protein, Total 6.3 - 8.0 g/dL 7.0 Albumin 3.9 - 4.9 g/dL 4.2 Calcium 8.5 - 10.2 mg/dL 9.9 Bilirubin, Total 0.2 - 1.3 mg/dL 0.2 Alkaline Phosphatase 34 - 123 U/L 66 AST 13 - 35 U/L 38 (H) ALT 7 - 38 U/L 48 (H) Glucose 74 - 99 mg/dL 88 BUN 7 - 21 mg/dL 8 Creatinine 0.58 - 0.96 mg/dL 0.61 Sodium 136 - 144 mmol/L 137 Potassium 3.7 - 5.1 mmol/L 4.4 Chloride 98 - 107 mmol/L 100 CO2 22 - 30 mmol/L 25 Anion Gap 8 - 15 mmol/L 12 eGFR >=60 mL/min/1.73m? 105 Total Cholesterol, Nonfasting <200 mg/dL 162 Triglycerides, Nonfasting <150 mg/dL 87 HDL Cholesterol, Nonfasting >39 mg/dL 49 LDL Cholesterol Calculated, Nonfasting <100 mg/dL 97 Non HDL Cholesterol, Nonfasting <130 mg/dL 113 VLDL Cholesterol, Nonfasting <30 mg/dL 14 Total Chol/HDL Ratio, Nonfasting <5.10 mg/dL 3.31 LDL/HDL Ratio, Nonfasting <2.54 mg/dL 1.98 Hemoglobin A1C 4.3 - 5.6 % 4.6 Estimated Average Glucose mg/dL 85 Legend: (H) High 1. Diabetes mellitus type II (HCC) (E11.9) 2. Class 1 obesity with serious comorbidity and body mass index (BMI) of 31.0 to 31.9 in adult, unspecified obesity type (E66.811) - HbA1c last measured at 4.6% in October; home glucose readings generally between 85-100 mg/dL, with occasional elevations to 104 mg/dL after white wine consumption. - No symptoms of hyperglycemia or hypoglycemia reported; no diabetic neuropathy or foot changes on exam. - Weight loss of 70 lbs over 3 years; down 5 lbs since last month; continues healthy diet and exercise. - Continue metformin as prescribed. - Continue Mounjaro 15 mg; discussed option to reduce dosage if desired, but patient elects to continue current dose for another 6 months. - Order repeat HbA1c in one week (after 3 months since last test). - Follow-up in 6 months to monitor HbA1c, weight, and overall diabetes management. 3. Viral URI with cough (J06.9) - Symptoms began Tuesday with sore throat, progressing to dry cough, headache, ear pain, nasal congestion, and sinus pressure; no shortness of breath, chest pain, or chest congestion. - Sick contacts tested negative for flu and COVID. - Differential includes viral URI, COVID, and RSV. - COVID, flu, and RSV testing performed; results pending. - Supportive care recommended: fluids, hand washing, mask use, quercetin for cough, nasal saline rinses or Neti pot for congestion, tea with honey, salt water gargles, and Tylenol or ibuprofen for headache. - Advised to seek medical attention for high fever, sudden chest pain with shortness of breath, or confusion. 4. Primary hypertension (I10) - Blood pressure within normal range today; hydrochlorothiazide discontinued previously due to dehydration. - Continue current management. 5. Hyperlipidemia, unspecified hyperlipidemia type (E78.5) - Continue simvastatin as prescribed; refill provided. 6. Gastroesophageal reflux disease, unspecified whether esophagitis present (K21.9) - No current symptoms of heartburn, dysphagia, or odynophagia. - Continue Protonix as prescribed; refill provided. 7. Hot flashes (R23.2) - Well-controlled with Effexor; patient reports significant improvement in symptoms. - Continue Effexor as prescribed. 8. Encounter for immunization (Z23) - COVID vaccine deferred until after resolution of current symptoms and pending test results. 9. Encounter for screening for COVID-19 (Z11.52) - COVID testing performed due to recent exposure and current symptoms; results pending. Antonio Hui MD [1] Social History Tobacco Use Smoking status: Former Current packs/day: 0.00 Average packs/day: 0.5 packs/day for 10.0 years (5.0 ttl pk-yrs) Types: Cigarettes Start date: 04/29/2001 Quit date: 04/30/2011 Years since quittin.7 Smokeless tobacco: Never Vaping Use Vaping status: Never Used Substance Use Topics Alcohol use: Not Currently Alcohol/week: 6.0 standard drinks of alcohol Types: 6 Glasses of wine per week Drug use: Never CNOV Observed: 01/14/2025 8:30 AM Status: COMPLETED Source: [facility] Office Visit ([facility]) MALIK NEELY ([id number]) 1970 F Date Time Provider Department 01/14/25 8:30 AM LÓPEZ DEAN [facility] During your visit today, we recorded the following information about you: Pulse Blood pressure Weight 75/minute 154/90 94.4 kg López Dean MD, PhD 01/14/2025 8:47 AM Signed NEUROSURGERY FOLLOW UP OFFICE NOTE López Dean MD, PhD Date of visit: January 14, 2025 Patient Name: Mrs.Robin Elan Neely Date of : 1970 Current Age: [age] year old Sex: female MRN/E# [id number] Last Office Visit: 10/03/2024 Chief Complaint: Patient presents with: Established Patient SUBJECTIVE: HPI The patient is a 54 year old, right handed female with a past medical history of arthritis of left shoulder, DDD of cervical and lumbar spine, DM type 2, endometriosis, GERD, hot flashes, hyperlipidemia, HTN, labral tear of left hip, obesity, plantar fascitis, hysterectomy, and uterine fibroid who is referred by Dr. Walters from [facility] for neurosurgical evaluation. Malik Neely is a 54-year-old female presented on 09/05/2024 as a new patient for evaluation of worsening neck pain and left arm numbness and tingling. Malik reported a 30-year history of neck pain [...] or loss of bowel or bladder control. Malik had not pursued conservative treatments for her neck pain. Malik was evaluated by Dr. Alberto at [facility], who referred her to neurosurgery. She was currently taking Mobic for a left hip problem, which affects her gait. 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 Malik has a history of type 2 diabetes, [...] does have a known history of hypertension. Patient presented to the office on 10/03/2024 for a one-month follow-up for worsening neck pain and left arm numbness and tingling. Malik reported worsening neck pain and left arm numbness and tingling since her last visit on September 05. She believed her symptoms may be related to work stress. The pain radiated to her left shoulder, left shoulder blade, and the last three digits of her left hand. She continued to experience occasional unsteadiness but does not report any falls or loss of bowel or bladder control. She has not yet participated in physical therapy as previously recommended. She was currently taking Mobic for hip issues, which she noted was not helping with her neck pain. She rated her pain as 4 out of 10 today, noting that it worsens in the evening, particularly after work. Her job involved working at a computer and being on a concrete floor, which she believed contributes to her symptoms. She does not report any shooting pain down her left hand, only numbness. She mentioned that her left hand sometimes wakes up during the night completely asleep. She used a support pillow and a recliner with head support to alleviate discomfort while sleeping. Past Diagnostic Results: Imaging - Cervical Spine X-rays: Arthritic changes at C5-C6 with angulation; disc fragment at C6-C7. Imaging reviewed; most significant degenerative changes at C5-6, with suspected disc fragment at C6-7 causing radiculopathy. Surgical candidate, but surgery discouraged unless symptoms worsen significantly; discussed potential need for two-level surgery if pursued. Advised conservative management; continue current pain management with Tylenol or ibuprofen for neck pain. It was recommended to follow-up in 3 months, prompting her visit today. 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: [employer] PREVIOUS SURGERY: None PAIN EVALUATION 01/14/2025 0818 Pain Location: Head Description: Aching Duration Units: Hours Frequency: Continuous PAST MEDICAL HISTORY Diagnosis Date Acute meniscal tear of left knee 2014 s/p repair Arthritis of left shoulder region [...] Hypertension Father Coronary Artery Disease Father 59 MD in 2010- LDa Thyroid Sister other (Gallbladder removed) Sister No Known Problems Sister Thyroid Sister No Known Problems Brother Heart Maternal Grandmother No Known Problems Maternal Grandfather Rheumatologic disease Paternal Grandmother arthritis No Known Problems Paternal Grandfather ALLERGIES Allergen Reactions Codeine Anaphylaxis Contrast Dye Anaphylaxis Pineapple Rash Shellfish Containin* GI Upset Squash GI Upset [place] Other: See Comments Sulfa Dyne Anaphylaxis [place]pearl GI Upset Current Outpatient Medications Medication Sig Dispense Refill meloxicam (MOBIC) 15 mg tablet Take 1 tablet by mouth once daily. 30 tablet 0 tirzepatide (MOUNJARO) 15 mg/0.5 mL pen injector Inject 15 mg subcutaneously one time a week. 6 mL 1 losartan (COZAAR) 50 mg tablet Take [...] mouth daily at bedtime. 90 tablet 1 glucosamine/msm/chondroit sulf (GLUCOSAMINE [id number] ORAL) EPINEPHrine (EPIPEN) 0.3 mg/0.3 mL auto-injector 1 INJECTION NEEDED IN THIGH 2 Each 1 Cholecalciferol, Vitamin D3, 25 mcg (1,000 unit) cap Take by mouth. turmeric 400 mg cap Take 1 capsule by mouth once daily. venlafaxine ER (EFFEXOR XR) 75 mg 24 hr capsule Take 1 capsule by mouth once daily. Aspirin 81 mg Tab Take 81 mg by mouth once daily. CALCIUM CARBONATE/VITAMIN D3 (CALTRATE 600 + D ORAL) Take by mouth twice daily. meloxicam (MOBIC) 15 mg tablet Take 1 tablet by mouth once daily. (Patient not taking: Reported on 01/14/2025) 90 tablet 1 peg 3350-Electrolytes (GOLYTELY) 236-22.74-6.74 -5.86 gram suspension Refer to printed prep instructions from your provider. 4000 mL 0 fluconazole (DIFLUCAN) 150 mg tablet levoFLOXacin (LEVAQUIN) 750 mg tablet Take 750 mg by mouth once daily. metroNIDAZOLE (FLAGYL) 500 mg tablet Take 500 mg by mouth. ondansetron orally disintegrating (ZOFRAN ODT) 4 mg disintegrating tablet Take 1 tablet by mouth every 8 hours as needed for nausea/vomiting. (Patient not taking: Reported on 01/14/2025) 20 tablet 0 hydroCHLOROthiazide 12.5 mg tablet Take 1 tablet by mouth once daily. (Patient not taking: Reported on 01/14/2025) 90 tablet 1 Cetirizine 10 mg cap Take by mouth. (Patient not taking: Reported on 01/14/2025) No current facility-administered medications for this visit. REVIEW OF SYSTEMS Review of Systems Constitutional: Negative for chills and fever. HENT: Negative for congestion. Eyes: Negative for visual disturbance. Respiratory: Negative for cough and shortness of breath. Cardiovascular: Negative for leg swelling. Gastrointestinal: Negative for nausea and vomiting. Musculoskeletal: Positive for neck pain. Negative for arthralgias and gait problem. Neurological: Positive for numbness. Negative for weakness. Hematological: Does not bruise/bleed easily. Psychiatric/Behavioral: Negative for agitation and confusion. Musculoskeletal: (+) neck pain Neurological: (+) left arm paresthesia, (-) weakness, (-) gait disturbance, (-) shooting pain Gastrointestinal: (-) bowel incontinence Genitourinary: (-) bladder incontinence OBJECTIVE: BP 156/89 Pulse 74 Wt 208 lb 1.8 oz (94.4kg) SpO2 100% Physical Exam My repeat neurologic examination of Malik today was unremarkable. She did not have upper motor neuron signs including a Manuelito sign. She had full strength and normal sensation throughout bilateral upper extremities. - Neurological: - Motor: No weakness. - Strength: - Arms: - Wrist extensors: Left: 5/5, Right: 5/5 - Wrist flexors: Left: 5/5, Right: 5/5 - Dorsal interossei: Left: 5/5, Right: 5/5 Data Review IMAGING STUDIES: No new imaging Assessment: Malik Neely is a 54-year-old female presenting for a 3-month follow-up for chronic neck pain and left arm paresthesia. Malik was last seen in September for chronic neck pain and left arm paresthesia. The neck pain has been present for a long time and remains constant. She attributes much of the discomfort to prolonged use of computer monitors and arthritis. Previously, she experienced numbness and tingling radiating down her left arm to the last three fingers, which occurred daily. Since her last visit, these symptoms have improved and now occur only once or twice a week. She denies any weakness or shooting pain. She did not pursue physical therapy as previously discussed. She reports no difficulty walking, no falls, and no loss of bowel or bladder control. For symptom management, she uses lidocaine patches. Plan: 1. Cervical spondylosis without myelopathy (M47.812) 2. Neck pain (M54.2) 3. DDD (degenerative disc disease), cervical (M50.30) - Chronic neck pain and left arm paresthesia; arm numbness has improved from daily to 1-2 times per week. - No weakness, gait disturbance, or bowel/bladder dysfunction. - Exam consistent with cervical spondylosis and DDD; no new neurological deficits. - Discussed ongoing risk of neurological symptoms; advised patient to call if symptoms worsen or new symptoms develop. - Follow-up in 1 year. - Continue using your lidocaine patches for pain relief as you have been. - Watch for any increase in numbness, tingling, weakness, or new neurological symptoms and call the office promptly if they occur. - Plan to return for a follow-up appointment in one year. - No imaging studies are needed before your next visit. - Remember you can contact us at any time if you have questions or concerns before your next scheduled visit. Attestation: The following portions of the patient's history were reviewed, confirmed, and updated as necessary: allergies, current medications, past family history, past medical history, past social history, past surgical history, problem list, HPI, and ROS obtained by others. Some elements may be copied from a previous office note and have been reviewed/updated where appropriate. All portions reflect current medical decision making from today. The clinical and radiographic findings as well as the risks, benefits and alternatives of treatment have been reviewed in detail with the patient. The patient was advised to call the office if symptoms worsen or new symptoms develop. The patient expressed understanding and is in agreement with plan. López Dean MD, PhD This note was partially generated using OpenDoor recognition system, and there may be some incorrect words, spellings, and punctuation that were not noted in checking the note before saving. Allergies As of Date: 01/14/2025 Noted Allergy Reaction CODEINE 10/06/2011 10 - Anaphylaxis CONTRAST DYE 10/06/2011 10 - Anaphylaxis PINEAPPLE 10/28/2024 2 - Rash SHELLFISH CONTAINING PRODUCTS 04/29/2016 8 - GI Upset SQUASH 03/13/2018 8 - GI Upset STRAWBERRY 03/13/2018 14 - Other: See Comments SULFA DYNE 10/06/2011 10 - Anaphylaxis WALNUT 03/13/2018 8 - GI Upset Date Reviewed: 01/14/2025 Reviewed by: Alison Epps MA - Fully Assessed Reason for Visit: Established Patient [175] Primary Visit Diagnosis:DDD (degenerative disc disease), cervical [M50.30] Other Visit Diagnoses:Cervical spondylosis without myelopathy [M47.812] Neck pain [M54.2] Prescriptions as of 01/14/2025 - meloxicam (MOBIC) 15 mg tablet Take 1 tablet by mouth once daily. - meloxicam (MOBIC) 15 mg tablet Take 1 tablet by mouth once daily. - peg 3350-Electrolytes (GOLYTELY) 236-22.74-6.74 -5.86 gram suspension Refer to printed prep instructions from your provider. - fluconazole (DIFLUCAN) 150 mg tablet - levoFLOXacin (LEVAQUIN) 750 mg tablet Take 750 mg by mouth once daily. - metroNIDAZOLE (FLAGYL) 500 mg tablet Take 500 mg by mouth. - ondansetron orally disintegrating (ZOFRAN ODT) 4 mg disintegrating tablet Take 1 tablet by mouth every 8 hours as needed for nausea/vomiting. - tirzepatide (MOUNJARO) 15 mg/0.5 mL pen injector Inject 15 mg subcutaneously one time a week. - hydroCHLOROthiazide 12.5 mg tablet Take 1 tablet by mouth once daily. - losartan (COZAAR) 50 mg tablet Take two tablets daily - metFORMIN (GLUCOPHAGE) 500 mg tablet Take 1 tablet by mouth two times a day with meals. . - pantoprazole DR (PROTONIX) 40 mg tablet Take 1 tablet by mouth once daily. - simvastatin (ZOCOR) 10 mg tablet Take 1 tablet by mouth daily at bedtime. - glucosamine/msm/chondroit sulf (GLUCOSAMINE [id number] ORAL) - EPINEPHrine (EPIPEN) 0.3 mg/0.3 mL auto-injector 1 INJECTION NEEDED IN THIGH - Cholecalciferol, Vitamin D3, 25 mcg (1,000 [...] twice daily. Problem List As Of Date 01/14/2025 Noted Resolved Hypertension [I10] Hyperlipidemia [E78.5] GERD [...] breast reduction [Z98.890] 08/14/2022 Obesity [E66.9] 10/07/2023 Disposition: Return in about 1 year (around 01/14/2026) for one year follow up, no imag . Follow-up and Disposition History for Encounter Date Provider Department Center 01/14/2025 [id number], GREGORY NELUCYLM [facility] [place] Encounter Status:Closed by LÓPEZ DEAN on 01/14/25 PROGRESS Observed: 01/14/2025 8:30 AM Status: COMPLETED Source: [facility] HNO ID: [id number] Author: LÓPEZ DEAN MD, PhD Service: ? Author Type: Physician Type: Progress Notes Filed: 01/14/2025 08:47 Note Text: NEUROSURGERY FOLLOW UP OFFICE NOTE López Dean MD, PhD Date of visit: January 14, 2025 Patient Name: Mrs.Robin Elan Neely Date of : 1970 Current Age: [age] year old Sex: female MRN/E# [id number] Last Office Visit: 10/03/2024 Chief Complaint: Patient presents with: Established Patient SUBJECTIVE: HPI The patient is a 54 year old, right handed female with a past medical history of arthritis of left shoulder, DDD of cervical and lumbar spine, DM type 2, endometriosis, GERD, hot flashes, hyperlipidemia, HTN, labral tear of left hip, obesity, plantar fascitis, hysterectomy, and uterine fibroid who is referred by Dr. Walters from [facility] for neurosurgical evaluation. Malik Neely is a 54-year-old female presented on 09/05/2024 as a new patient for evaluation of worsening neck pain and left arm numbness and tingling. Malik reported a 30-year history of neck pain [...] or loss of bowel or bladder control. Malik had not pursued conservative treatments for her neck pain. Malik was evaluated by Dr. Alberto at [facility], who referred her to neurosurgery. She was currently taking Mobic for a left hip problem, which affects her gait. 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 Malik has a history of type 2 diabetes, [...] does have a known history of hypertension. Patient presented to the office on 10/03/2024 for a one-month follow-up for worsening neck pain and left arm numbness and tingling. Malik reported worsening neck pain and left arm numbness and tingling since her last visit on September 05. She believed her symptoms may be related to work stress. The pain radiated to her left shoulder, left shoulder blade, and the last three digits of her left hand. She continued to experience occasional unsteadiness but does not report any falls or loss of bowel or bladder control. She has not yet participated in physical therapy as previously recommended. She was currently taking Mobic for hip issues, which she noted was not helping with her neck pain. She rated her pain as 4 out of 10 today, noting that it worsens in the evening, particularly after work. Her job involved working at a computer and being on a concrete floor, which she believed contributes to her symptoms. She does not report any shooting pain down her left hand, only numbness. She mentioned that her left hand sometimes wakes up during the night completely asleep. She used a support pillow and a recliner with head support to alleviate discomfort while sleeping. Past Diagnostic Results: Imaging - Cervical Spine X-rays: Arthritic changes at C5-C6 with angulation; disc fragment at C6-C7. Imaging reviewed; most significant degenerative changes at C5-6, with suspected disc fragment at C6-7 causing radiculopathy. Surgical candidate, but surgery discouraged unless symptoms worsen significantly; discussed potential need for two-level surgery if pursued. Advised conservative management; continue current pain management with Tylenol or ibuprofen for neck pain. It was recommended to follow-up in 3 months, prompting her visit today. 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: Flexeril Mobic PREVIOUS SURGERY: None PAIN EVALUATION 01/14/2025 0818 Pain Location: Head Description: Aching Duration Units: Hours Frequency: Continuous PAST MEDICAL HISTORY Diagnosis Date Acute meniscal [...] Hypertension Father Coronary Artery Disease Father 59 MD in 2010- LDa Thyroid Sister other (Gallbladder removed) Sister No Known Problems Sister Thyroid Sister No Known Problems Brother Heart Maternal Grandmother No Known Problems Maternal Grandfather Rheumatologic disease Paternal Grandmother arthritis No Known Problems Paternal Grandfather ALLERGIES Allergen Reactions Codeine Anaphylaxis Contrast Dye Anaphylaxis Pineapple Rash Shellfish Containin* GI Upset Squash GI Upset [place] Other: See Comments Sulfa Dyne Anaphylaxis [place] GI Upset Current Outpatient Medications Medication Sig Dispense Refill meloxicam (MOBIC) 15 mg tablet Take 1 tablet by mouth once daily. 30 tablet 0 tirzepatide (MOUNJARO) 15 mg/0.5 mL pen injector Inject 15 mg subcutaneously one time a week. 6 mL 1 losartan (COZAAR) 50 mg tablet Take [...] mouth daily at bedtime. 90 tablet 1 glucosamine/msm/chondroit sulf (GLUCOSAMINE [id number] ORAL) EPINEPHrine (EPIPEN) 0.3 mg/0.3 mL auto-injector 1 INJECTION NEEDED IN THIGH 2 Each 1 Cholecalciferol, Vitamin D3, 25 mcg (1,000 unit) cap Take by mouth. turmeric 400 mg cap Take 1 capsule by mouth once daily. venlafaxine ER (EFFEXOR XR) 75 mg 24 hr capsule Take 1 capsule by mouth once daily. Aspirin 81 mg Tab Take 81 mg by mouth once daily. CALCIUM CARBONATE/VITAMIN D3 (CALTRATE 600 + D ORAL) Take by mouth twice daily. meloxicam (MOBIC) 15 mg tablet Take 1 tablet by mouth once daily. (Patient not taking: Reported on 01/14/2025) 90 tablet 1 peg 3350-Electrolytes (GOLYTELY) 236-22.74-6.74 -5.86 gram suspension Refer to printed prep instructions from your provider. 4000 mL 0 fluconazole (DIFLUCAN) 150 mg tablet levoFLOXacin (LEVAQUIN) 750 mg tablet Take 750 mg by mouth once daily. metroNIDAZOLE (FLAGYL) 500 mg tablet Take 500 mg by mouth. ondansetron orally disintegrating (ZOFRAN ODT) 4 mg disintegrating tablet Take 1 tablet by mouth every 8 hours as needed for nausea/vomiting. (Patient not taking: Reported on 01/14/2025) 20 tablet 0 hydroCHLOROthiazide 12.5 mg tablet Take 1 tablet by mouth once daily. (Patient not taking: Reported on 01/14/2025) 90 tablet 1 Cetirizine 10 mg cap Take by mouth. (Patient not taking: Reported on 01/14/2025) No current facility-administered medications for this visit. REVIEW OF SYSTEMS Review of Systems Constitutional: Negative for chills and fever. HENT: Negative for congestion. Eyes: Negative for visual disturbance. Respiratory: Negative for cough and shortness of breath. Cardiovascular: Negative for leg swelling. Gastrointestinal: Negative for nausea and vomiting. Musculoskeletal: Positive for neck pain. Negative for arthralgias and gait problem. Neurological: Positive for numbness. Negative for weakness. Hematological: Does not bruise/bleed easily. Psychiatric/Behavioral: Negative for agitation and confusion. Musculoskeletal: (+) neck pain Neurological: (+) left arm paresthesia, (-) weakness, (-) gait disturbance, (-) shooting pain Gastrointestinal: (-) bowel incontinence Genitourinary: (-) bladder incontinence OBJECTIVE: BP 156/89 Pulse 74 Wt 208 lb 1.8 oz (94.4kg) SpO2 100% Physical Exam My repeat neurologic examination of Malik today was unremarkable. She did not have upper motor neuron signs including a Manuelito sign. She had full strength and normal sensation throughout bilateral upper extremities. - Neurological: - Motor: No weakness. - Strength: - Arms: - Wrist extensors: Left: 5/5, Right: 5/5 - Wrist flexors: Left: 5/5, Right: 5/5 - Dorsal interossei: Left: 5/5, Right: 5/5 Data Review IMAGING STUDIES: No new imaging Assessment: Malik Neely is a 54-year-old female presenting for a 3-month follow-up for chronic neck pain and left arm paresthesia. Malik was last seen in September for chronic neck pain and left arm paresthesia. The neck pain has been present for a long time and remains constant. She attributes much of the discomfort to prolonged use of computer monitors and arthritis. Previously, she experienced numbness and tingling radiating down her left arm to the last three fingers, which occurred daily. Since her last visit, these symptoms have improved and now occur only once or twice a week. She denies any weakness or shooting pain. She did not pursue physical therapy as previously discussed. She reports no difficulty walking, no falls, and no loss of bowel or bladder control. For symptom management, she uses lidocaine patches. Plan: 1. Cervical spondylosis without myelopathy (M47.812) 2. Neck pain (M54.2) 3. DDD (degenerative disc disease), cervical (M50.30) - Chronic neck pain and left arm paresthesia; arm numbness has improved from daily to 1-2 times per week. - No weakness, gait disturbance, or bowel/bladder dysfunction. - Exam consistent with cervical spondylosis and DDD; no new neurological deficits. - Discussed ongoing risk of neurological symptoms; advised patient to call if symptoms worsen or new symptoms develop. - Follow-up in 1 year. - Continue using your lidocaine patches for pain relief as you have been. - Watch for any increase in numbness, tingling, weakness, or new neurological symptoms and call the office promptly if they occur. - Plan to return for a follow-up appointment in one year. - No imaging studies are needed before your next visit. - Remember you can contact us at any time if you have questions or concerns before your next scheduled visit. Attestation: The following portions of the patient's history were reviewed, confirmed, and updated as necessary: allergies, current medications, past family history, past medical history, past social history, past surgical history, problem list, HPI, and ROS obtained by others. Some elements may be copied from a previous office note and have been reviewed/updated where appropriate. All portions reflect current medical decision making from today. The clinical and radiographic findings as well as the risks, benefits and alternatives of treatment have been reviewed in detail with the patient. The patient was advised to call the office if symptoms worsen or new symptoms develop. The patient expressed understanding and is in agreement with plan. López Dean MD, PhD This note was partially generated using Letsgofordinner voice recognition system, and there may be some incorrect words, spellings, and punctuation that were not noted in checking the note before saving. ANES POSTPROC EVAL Observed: 12/20/2024 1:55 PM Status: COMPLETED Source: [facility] HNO ID: [id number] Author: DELORES HILTON MD Service: Anesthesiology Author Type: Physician Type: Anesthesia Postprocedure Evaluation Filed: 12/20/2024 13:56 Note Text: POST ANESTHESIA EVALUATION NOTE : 1970 Procedure Summary Date: 12/20/24 Room / Location: SURGERY Anesthesia Start: 1327 Anesthesia Stop: 1355 Procedure: COLONOSCOPY DIAGNOSTIC Diagnosis: Colitis Colitis Scheduled Providers: Jennifer Nelson MD; Delores Hilton MD Responsible Provider: Delores Hilton MD Anesthesia Type: MAC ASA Status: 3 Anesthesia Type: MAC Last Vitals Vitals Value Taken Time BP 114/72 12/20/24 13:55 Temp 97 12/20/24 13:55 Pulse 82 12/20/24 13:50 Resp 18 12/20/24 13:50 SpO2 100 % 12/20/24 13:50 Post Anesthesia Patient Status Patient Evaluation: bedside. Anticipated Disposition: phase 2 then home. Neurological Status: aware and responsive. Pulmonary Status: breathing comfortably on room air Airway Control: returned to baseline unsupported. Cardiovascular Status: stable. Pain Management: clinically adequate Postoperative Hydration: acceptable. Intraoperative Events: no significant anesthesia events Post Operative Nausea/Vomiting Status: no significant post operative nausea or vomiting Recommendation: continue current plan of care. Anesthesia Observations No Documentation SIGNATURE: Delores Hilton MD PATIENT NAME: Malik Neely DATE: December 20, 2024 TIME: 1:55 PM CSN: [id number] TISS PATH BX REPORT Collected: 12/20/2024 1:[address] atus: F Source: [facility] Order Comment: Specimen Type : TISSUE SPECIMEN Ordering Facility: [facility] Address: [address] [place] [address] TYPE CODE TESTS RESULT OUT OF RANGE REFERENCE UNITS PATHOLOGY [id number] CASE REPORT Result Comment: Surgical Pat hology Report Case: [id number] Authorizing Provider: Jennifer Nelson MD Collected: 12/20/2024 01:40 PM Ordering Location: SURGERY Received: 12/20/2024 03:11 PM Pathologist: Willis Salazar MD Specimens: A) - Colon, Ascending, Biopsy, right colon B) - Colon, Transverse, Biopsy C) - Colon, Descending, Biopsy, left colon D) - Colon, Sigmoid, Biopsy E) - Rectum, Biopsy PATHOLOGY [id number] FINAL DIAGNOSIS Result Comment: A. Colon, ri ght, biopsy: - Colonic mucosa with no significant histopathologic abnormality. B. Colon, transverse, biopsy: - Colonic mucosa with no significant histopathologic abnormality. C. Colon, left, biopsy: - Colonic mucosa with no significant histopathologic abnormality. D. Colon, sigmoid, biopsy: - Colonic mucosa with no significant histopathologic abnormality. E. Colon, rectum, biopsy: - Colonic mucosa with no significant histopathologic abnormality. at 0915 EDT PATHOLOGY [id number] GROSS DESCRIPTION Result Comment: A. Colon, As cending, Biopsy Received in formalin labeled right colon are multiple casey segments of tissue aggregating to 0.7 x 0.3 x 0.1 cm. The specimens are totally submitted in formalin in 1 cassette. B. Colon, Transverse, Biopsy Received in formalin labeled transverse colon biopsy is a casey segment of tissue measuring 0.5 x 0.3 x 0.2 cm. The specimen is totally submitted in formalin in 1 cassette. C. Colon, Descending, Biopsy Received in formalin labeled left colon biopsy is a casey segment of tissue measuring 0.6 x 0.3 x 0.2 cm. The specimen is totally submitted in formalin in 1 cassette. D. Colon, Sigmoid, Biopsy Received in formalin labeled sigmoid biopsy are multiple casey segments of tissue aggregating to 0.6 x 0.5 x 0.1 cm. The specimens are totally submitted in formalin in 1 cassette. E. Rectum, Biopsy Received in formalin labeled rectum biopsy are multiple casey segments of tissue aggregating to 0.7 x 0.4 x 0.1 cm. The specimens are totally submitted in formalin in 1 cassette. Gross examination performed at [facility], [address] [place] [address] [employer], [address] December 21, 2024 1:49 PM PATHOLOGY CDX2 CLINICAL HISTORY Result Comment: Associated D iagnoses: K52.9 - Colitis PATHOLOGY [facility] FINAL PERFORMING LAB Result Comment: Diagnostic i nterpretation performed at: [facility], [address] [place] [address] CLIA# [id number] Bilingual Student Tutor: Phillip Novak MD PATHOLOGY [id number] AP DISCLAIMER Result Comment: Laboratory D eveloped Test (LDT) Disclaimer: Performance characteristics of immunohistochemical, immunofluorescent, and chromogenic in-situ hybridization tests have been determined by the performing laboratory within the [facility] Department of Pathology and Laboratory Medicine ([facility], [facility], [facility], [facility], [facility], [facility], or [facility]) in a manner consistent with CLIA requirements. One or more of these tests may not have been cleared or approved by the FDA. The [facility] Department of Pathology and Laboratory Medicine is regulated under CLIA as qualified to perform high-complexity testing. These tests are used for clinical purposes. These should not be regarded as investigational or for research. Positive and negative controls stain appropriately. Performed By: #### [id number] #### [facility] CLIA [id number] [address] [place] ANES PRE-OP Observed: 12/20/2024 1:23 PM Status: COMPLETED Source: [facility] HNO ID: [id number] Author: DELORES HILTON MD Service: Anesthesiology Author Type: Physician Type: Anesthesia Preprocedure Evaluation Filed: 12/20/2024 13:24 Note Text: ANESTHESIOLOGY DAY OF SURGERY NOTE : 1970 Procedure Information Date/Time: 12/20/24 1315 Scheduled providers: Jennifer Nelson MD; Delores Hilton MD Procedure: COLONOSCOPY DIAGNOSTIC Location: LD SURGERY Estimated body mass index is 31.17 kg/m? as calculated from the following: Height as of this encounter: 170.2 cm (5' 7). Weight as of this encounter: 90.3 kg (199 lb). Most recent hematocrit and potassium results: Hematocrit 39.2 11/05/2024 Potassium 4.4 11/05/2024 Relevant Problems CARDIO (+) Hypertension ENDO (+) Diabetes mellitus type II (HCC) GI (+) GERD (gastroesophageal reflux disease) I - PHYSICAL EVALUATION AIRWAY Patient intubated: No. Tracheostomy tube not present Mallampati: II. TM distance: >3 FB. Neck ROM: full ROM without neurological symptoms. Mouth opening: >3 FB. Short neck: no. Thick neck: no Benedict present: no Microretrognathia/Micronagthia/Recessed Chin: No DENTAL Dental findings: teeth intact. II - ANESTHESIA PLAN ASA Score: 3 Anesthetic Plan: MAC The patient is not a current smoker. NPO Status: adequate Monitoring Plan Monitoring plan: standard ASA. Post Procedure Analgesic Plan Postoperative analgesic plan: parenteral or oral opioids. Informed Consent Anesthetic risks, benefits, alternatives, personnel and consent discussed: yes. Patient / Responsible Republican agrees to proceed: yes Patient / Surrogate agrees to blood products: Yes DNR status not reviewed with patient and/or family prior to surgery. Significant changes in the patient condition since the History and Physical, not otherwise documented in primary service progress note: no. Potential Anesthesia issues that may suggest increased risk of complications or contraindication to planned procedure: none. Vitals Value Taken Time BP 143/92 12/20/24 13:08 Pulse 90 12/20/24 12:40 Resp 17 12/20/24 12:40 Temp 36.1 ?C (97 ?F) 12/20/24 12:40 SpO2 100 % 12/20/24 12:40 Facility-Administered Medications as of 12/20/2024 Medication Dose Route Frequency - lidocaine (PF) 10 mg/mL (1 %) 1-2 mg injection (XYLOCAINE) 0.1-0.2 mL INTRADERMAL PRN - lactated ringers iv infusion 30 mL/hr INTRAVENOUS CONTINUOUS Outpatient Medications as of 12/20/2024 Medication Sig - losartan (COZAAR) 50 mg tablet Take two tablets daily - metFORMIN (GLUCOPHAGE) 500 mg tablet Take 1 tablet by mouth two times a day with meals. . - pantoprazole DR (PROTONIX) 40 mg tablet Take 1 tablet by mouth once daily. - simvastatin (ZOCOR) 10 mg tablet Take 1 tablet by mouth daily at bedtime. - venlafaxine ER (EFFEXOR XR) 75 mg 24 hr capsule Take 1 capsule by mouth once daily. - Aspirin 81 mg Tab Take 81 mg by mouth once daily. - peg 3350-Electrolytes (GOLYTELY) 236-22.74-6.74 -5.86 gram suspension Refer to printed prep instructions from your provider. - fluconazole (DIFLUCAN) 150 mg tablet - levoFLOXacin (LEVAQUIN) 750 mg tablet Take 750 mg by mouth once daily. - metroNIDAZOLE (FLAGYL) 500 mg tablet Take 500 mg by mouth. - ondansetron orally disintegrating (ZOFRAN ODT) 4 mg disintegrating tablet Take 1 tablet by mouth every 8 hours as needed for nausea/vomiting. - tirzepatide (MOUNJARO) 15 mg/0.5 mL pen injector Inject 15 mg subcutaneously one time a week. - meloxicam (MOBIC) 15 mg tablet Take 1 tablet by mouth once daily. - hydroCHLOROthiazide 12.5 mg tablet Take 1 tablet by mouth once daily. - glucosamine/msm/chondroit sulf (GLUCOSAMINE [id number] ORAL) - EPINEPHrine (EPIPEN) 0.3 mg/0.3 mL auto-injector 1 INJECTION NEEDED IN THIGH - Cholecalciferol, Vitamin D3, 25 mcg (1,000 unit) cap Take by mouth. - turmeric 400 mg cap Take 1 capsule by mouth once daily. - Cetirizine 10 mg cap Take by mouth. - CALCIUM CARBONATE/VITAMIN D3 (CALTRATE 600 + D ORAL) Take by mouth twice daily. I have interviewed and examined the patient. I have reviewed the medical record and/or the pre-anesthesia evaluation, pertinent labs, and test results. This contains updated information obtained within 48 hours of Surgery/Procedure. SIGNATURE: Delores Hilton MD PATIENT NAME: Malik Neely DATE: December 20, 2024 TIME: 1:23 PM CSN: [id number] COLONOSCOPY Observed: 12/20/2024 1:10 PM Status: F Source: [facility] Gastrointestinal Endoscopy Patient Name: Malik Neely Procedure Date: 12/20/2024 1:10 PM Date of : 1970 Admit Type: Outpatient Age: 54 Gender: Female Note Status: Finalized Procedure: Colonoscopy diagnostic Indications: Abnormal CT of the GI tract Providers: Jennifer Nelson MD Patient Profile: Refer to note in patient chart for documentation of history and physical. Last Colonoscopy: 2021. Referring Physician: Medicines: See the Anesthesia note for documentation of the administered medications Complications: No immediate complications. Requesting Provider: Procedure: Pre-Anesthesia Assessment: - Monitored anesthesia care under the supervision of an anesthesiologist was determined to be medically necessary for this procedure based on review of the patient's medical history, medications, and prior anesthesia history. After I obtained informed consent, the scope was passed under direct vision. Throughout the procedure, the patient's blood pressure, pulse, and oxygen saturations were monitored continuously. The Colonoscope was introduced through the anus and advanced to the cecum, identified by the appendiceal orifice, ileocecal valve and palpation. test The colonoscopy was performed without difficulty. The patient tolerated the procedure well. The quality of the bowel preparation was adequate. The appendiceal orifice and the rectum were photographed. Moderate Sedation: MAC anesthesia was administered by the anesthesia team. Findings: The perianal and digital rectal examinations were normal. Non-bleeding external and internal hemorrhoids were found. A few small-mouthed diverticula were found in the sigmoid colon. Normal mucosal findings of transverse and left colon Biopsies for histology were taken with a cold forceps from the ascending colon, right colon, left colon, transverse colon, sigmoid colon and rectum for evaluation of microscopic colitis. Estimated blood loss was minimal. Impression: - Non-bleeding external and internal hemorrhoids. Recommendation: - Repeat colonoscopy in 7-10 years for screening purposes Biopsies taken of above locations to rule out colitis. - Return to my office at the next available appointment for discussion of results. - Patient has a contact number available for emergencies. The signs and symptoms of potential delayed complications were discussed with the patient. Return to normal activities tomorrow. Written discharge instructions were provided to the patient. - Continue present medications. - Resume previous diet. Procedure Code(s): --- Professional --- 48913, Colonoscopy, flexible; diagnostic, including collection of specimen(s) by brushing or washing, when performed (separate procedure) Diagnosis Code(s): --- Professional --- R93.3, Abnormal findings on diagnostic imaging of other parts of digestive tract K64.8, Other hemorrhoids CPT copyright 2020 [employer]. All rights reserved. The codes documented in this report are preliminary and upon animal attendant review may be revised to meet current compliance requirements. Attending Participation: I personally performed the entire procedure. Scope In: 1:33:28 PM Scope Out: 1:48:36 PM MD Jennifer Wayne MD 12/20/2024 1:55:56 PM This report has been signed electronically by Jennifer Nelson MD Number of Addenda: 0 Note Initiated On: 12/20/2024 1:10 PM Estimated Blood Loss: Estimated blood loss was minimal. Estimated blood loss was minimal. HISTORY PHYSICAL Observed: 12/20/2024 12:15 PM Status: COMPLETED Source: [facility] ID: [id number] Author: JENNIFER NELSON MD Service: General Surgery Author Type: Physician Type: H&P Filed: 12/20/2024 12:15 Note Text: HISTORY AND PHYSICAL Malik Neely 1970 REFERRING PHYSICIAN: Antonio Hui,* CHIEF COMPLAINT: Consult HPI: The patient is a 54 year old female was admitted to hospital at [facility] for abdominal pain for a few days. She stated that it was right sided and lower abdominal pain. CT scan 10/28/2024 - left colon and splenic flexure wall thickening and inflammatory changes She had been tentatively diagnosed with ischemic colitis. She does have hypertension. She has completed round of antibiotics after her hospitalization. She denies abdominal pain at present. She was also found to have appendicolith on the above CT scan. Last colonoscopy 2021 at [facility]. She notes no blood in her stools. She denies constipation or diarrhea. PAST MEDICAL HISTORY PAST MEDICAL HISTORY Diagnosis Date Acute meniscal tear of left knee 2013 s/p repair Arthritis of left shoulder region mild DDD (degenerative disc disease), cervical DDD (degenerative disc disease), lumbar [facility]-Dr Castillo Diabetes mellitus type II (HCC) Endometriosis GERD (gastroesophageal reflux disease) Hot flashes Hyperlipidemia Hypertension Labral tear of hip, degenerative left hip, Seeing ortho Obesity Plantar fasciitis of right foot 2013 s/p plantar fasciotomy S/P hysterectomy LSO Seasonal allergies Uterine fibroid s/p hysterectomy PAST SURGICAL HISTORY PAST SURGICAL HISTORY Procedure Laterality Date COLONOSCOPY [...] BREAST 07/2022 SCOPE, PLANTAR FASCIOTOMY Right 2013 CURRENT MEDICATIONS Current Outpatient Medications Medication Sig ondansetron orally disintegrating (ZOFRAN ODT) 4 mg disintegrating tablet Take 1 tablet by mouth every 8 hours as needed for nausea/vomiting. tirzepatide (MOUNJARO) 15 mg/0.5 mL pen injector Inject 15 mg subcutaneously one time a week. meloxicam (MOBIC) 15 mg tablet Take 1 tablet by mouth once daily. hydroCHLOROthiazide 12.5 mg tablet Take 1 tablet by mouth once daily. losartan (COZAAR) 50 mg tablet Take two tablets daily metFORMIN (GLUCOPHAGE) 500 mg tablet Take 1 tablet by mouth two times a day with meals. . pantoprazole DR (PROTONIX) 40 mg tablet Take 1 tablet by mouth once daily. simvastatin (ZOCOR) 10 mg tablet Take 1 tablet by mouth daily at bedtime. glucosamine/msm/chondroit sulf (GLUCOSAMINE [id number] ORAL) EPINEPHrine (EPIPEN) 0.3 mg/0.3 mL auto-injector 1 INJECTION NEEDED IN THIGH Cholecalciferol, Vitamin D3, 25 mcg (1,000 unit) [...] D ORAL) Take by mouth twice daily. peg 3350-Electrolytes (GOLYTELY) 236-22.74-6.74 -5.86 gram suspension Refer to printed prep instructions from your provider. fluconazole (DIFLUCAN) 150 mg tablet levoFLOXacin (LEVAQUIN) 750 mg tablet Take 750 mg by mouth once daily. metroNIDAZOLE (FLAGYL) 500 mg tablet Take 500 mg by mouth. No current facility-administered medications for this visit. ALLERGIES: Codeine, Contrast Dye, Shellfish Containing Products, Squash, Sulfa Dyne, and Maypearl PERSONAL HISTORY: [SOCIAL HISTORY] [SOCIAL HISTORY] Social History Tobacco Use Smoking status: Former Current packs/day: 0.00 Average packs/day: 0.5 packs/day for 10.0 years (5.0 ttl pk-yrs) Types: Cigarettes Start date: 04/29/2001 Quit date: 04/30/2011 Years since quittin.5 Smokeless tobacco: Never Vaping Use Vaping status: Never Used Substance Use Topics Alcohol use: Not Currently Alcohol/week: 6.0 standard drinks of alcohol Types: 6 Glasses of wine per week Drug use: Never FAMILY HISTORY FAMILY HISTORY Problem Relation Age of Onset Hypertension Mother Heart Failure Mother 64 Heart Mother stents Hypertension Father Coronary Artery Disease Father 59 MD in 2010- Thyroid Sister other (Gallbladder removed) Sister No Known Problems Sister Thyroid Sister No Known Problems Brother Heart Maternal Grandmother No Known Problems Maternal Grandfather Rheumatologic disease Paternal Grandmother arthritis No Known Problems Paternal Grandfather REVIEW OF SYSTEMS: General: The patient denies fatigue, denies weight loss, denies weight gain, denies feeling hot, and denies feelings of cold. Eyes: The patient denies glaucoma, denies eye injury/surgery, wears glasses or contacts. Ear/Nose/Throat: The patient denies allergies, denies hayfever, denies ear infections, and denies bloody noses. Cardiovascular: The patient denies chest pain, denies heart disease, notes high blood pressure,denies cardiac stent, denies prior heart attack, denies irregular heart beat, denies high cholesterol, denies poor circulation, denies heart failure, other cardiac issues, denies claudication, denies cold feet, denies peripheral arterial stent. Respiratory: The patient denies tuberculosis, denies pneumonia, denies frequent cough, denies pulmonary embolism, denies shortness of breath, and denies coughing up blood. Gastrointestinal: The patient denies difficulty swallowing, denies acid reflux, denies ulcers, notes nausea/vomiting, denies jaundice/hepatitis, denies gallbladder problems, denies black or tarry stools, denies hemorrhoids, denies bleeding from rectum, denies diverticulitis, denies constipation, notes diarrhea, denies loss of stool control, and denies hernias. Kidney/Bladder: The patient denies kidney stones, denies urine infections, and denies bloody urine. Skin: The patient denies a history of skin cancer, denies bleeding/changing moles, and denies a history of skin rash. Neurologic: The patient denies a history of epilepsy/convulsions, denies headaches, denies head/spinal injuries, and denies stroke/TIA. Psychiatric: The patient denies psychiatric medications, denies depression, and denies voices, denies substance abuse. Endocrine: The patient denies thyroid disorders, notes diabetes, and denies hormonal problems. Hematologic: The patient denies a history of bruising, denies bleeding, and denies anemia, denies blood clots. Infections: The patient denies a history of measles and mumps, denies rheumatic fever, and denies sexually transmitted diseases. Musculoskeletal: The patient denies back pain/injury, denies back problems, denies sciatica, denies knee/foot trouble, notes arthritis PHYSICAL EXAMINATION: General: The patient is 54 year old female, well nourished, well hydrated in no acute distress. The patient is oriented to time, place, and person. VITALS: Blood pressure 134/90, pulse 92, temperature 36.1 ?C (97 ?F), temperature source Temporal, resp. rate 14, height 170.2 cm (5' 7), weight 96.2 kg (212 lb), SpO2 98%. Body mass index is 33.2 kg/m?. Head: Normal cephalic, atraumatic Eyes: pupils are equally round, sclera are clear/anicteric Neck is supple with no tracheal deviation Cardiac: normal heart sounds, regular Respiratory: Normal respiratory excursion and pattern. Abdominal exam: benign Extremities: no clubbing, cyanosis or edema. Neuro: non focal Psych: normal mood The sensitive examination was discussed with the Patient or Patient's Authorized Riding Teacher. As applicable, any other physician, advance practice provider, medical student, or other health professional student that will be observing or involved in the sensitive examination for educational or training purposes was discussed with the Patient or Authorized Riding Teacher. The Patient or Authorized Riding Teacher has agreed to proceed with the sensitive examination. (Sensitive examination includes inspection and/or palpation of the breasts, pelvis, prostate and anorectal regions) Assessment IMPRESSION: possible ischemic colitis PLAN: I have discussed the above with the patient. I have offered colonoscopy , possible biopsies I have explained the procedure to the patient. I have counseled the patient as to the risks of the procedure, including but not limited to: infection, bleeding, injury to any intrabdominal organs such as liver/spleen, perforation of the GI tract, inability to complete the procedure, complications of anesthesia, etc. - the patient understands. The patient wishes to proceed. I have answered all questions to the patient?s satisfaction and the patient has no further questions. PROGRESS Observed: 11/12/2024 4:01 PM Status: COMPLETED Source: [facility] ID: [id number] Author: JENNIFER NELSON MD Service: ? Author Type: Physician Type: Progress Notes Filed: 11/15/2024 13:15 Note Text: HISTORY AND PHYSICAL Malik Elan Chin 1970 REFERRING PHYSICIAN: Antonio Hui,* CHIEF COMPLAINT: Consult HPI: The patient is a 54 year old female was admitted to hospital at [facility] for abdominal pain for a few days. She stated that it was right sided and lower abdominal pain. CT scan 10/28/2024 - left colon and splenic flexure wall thickening and inflammatory changes She had been tentatively diagnosed with ischemic colitis. She does have hypertension. She has completed round of antibiotics after her hospitalization. She denies abdominal pain at present. She was also found to have appendicolith on the above CT scan. Last colonoscopy 2021 at [facility]. She notes no blood in her stools. She denies constipation or diarrhea. PAST MEDICAL HISTORY Diagnosis Date Acute meniscal tear of left knee 2013 s/p repair Arthritis of left shoulder region mild DDD (degenerative disc disease), cervical DDD (degenerative disc disease), lumbar [facility]-Dr Jonathan Diabetes mellitus type II (HCC) [...] BREAST 07/2022 SCOPE, PLANTAR FASCIOTOMY Right 2013 Current Outpatient Medications Medication Sig ondansetron orally disintegrating (ZOFRAN ODT) 4 mg disintegrating tablet Take 1 tablet by mouth every 8 hours as needed for nausea/vomiting. tirzepatide (MOUNJARO) 15 mg/0.5 mL pen injector Inject 15 mg subcutaneously one time a week. meloxicam (MOBIC) 15 mg tablet Take 1 tablet by mouth once daily. hydroCHLOROthiazide 12.5 mg tablet Take 1 tablet by mouth once daily. losartan (COZAAR) 50 mg tablet Take two tablets daily metFORMIN (GLUCOPHAGE) 500 mg tablet Take 1 tablet by mouth two times a day with meals. . pantoprazole DR (PROTONIX) 40 mg tablet Take 1 tablet by mouth once daily. simvastatin (ZOCOR) 10 mg tablet Take 1 tablet by mouth daily at bedtime. glucosamine/msm/chondroit sulf (GLUCOSAMINE [id number] ORAL) EPINEPHrine (EPIPEN) 0.3 mg/0.3 mL auto-injector 1 INJECTION NEEDED IN THIGH Cholecalciferol, Vitamin D3, 25 mcg (1,000 unit) [...] D ORAL) Take by mouth twice daily. peg 3350-Electrolytes (GOLYTELY) 236-22.74-6.74 -5.86 gram suspension Refer to printed prep instructions from your provider. fluconazole (DIFLUCAN) 150 mg tablet levoFLOXacin (LEVAQUIN) 750 mg tablet Take 750 mg by mouth once daily. metroNIDAZOLE (FLAGYL) 500 mg tablet Take 500 mg by mouth. No current facility-administered medications for this visit. ALLERGIES: Codeine, Contrast Dye, Shellfish Containing Products, Squash, Sulfa Dyne, and Maypearl PERSONAL HISTORY: SOCIAL HISTORY[1] FAMILY HISTORY Problem Relation Age of Onset Hypertension Mother Heart Failure Mother 64 Heart Mother stents Hypertension Father Coronary Artery Disease Father 59 MD in 2010- LDa Thyroid Sister other (Gallbladder removed) Sister No Known Problems Sister Thyroid Sister No Known Problems Brother Heart Maternal Grandmother No Known Problems Maternal Grandfather Rheumatologic disease Paternal Grandmother arthritis No Known Problems Paternal Grandfather REVIEW OF SYSTEMS: General: The patient denies fatigue, denies weight loss, denies weight gain, denies feeling hot, and denies feelings of cold. Eyes: The patient denies glaucoma, denies eye injury/surgery, wears glasses or contacts. Ear/Nose/Throat: The patient denies allergies, denies hayfever, denies ear infections, and denies bloody noses. Cardiovascular: The patient denies chest pain, denies heart disease, notes high blood pressure,denies cardiac stent, denies prior heart attack, denies irregular heart beat, denies high cholesterol, denies poor circulation, denies heart failure, other cardiac issues, denies claudication, denies cold feet, denies peripheral arterial stent. Respiratory: The patient denies tuberculosis, denies pneumonia, denies frequent cough, denies pulmonary embolism, denies shortness of breath, and denies coughing up blood. Gastrointestinal: The patient denies difficulty swallowing, denies acid reflux, denies ulcers, notes nausea/vomiting, denies jaundice/hepatitis, denies gallbladder problems, denies black or tarry stools, denies hemorrhoids, denies bleeding from rectum, denies diverticulitis, denies constipation, notes diarrhea, denies loss of stool control, and denies hernias. Kidney/Bladder: The patient denies kidney stones, denies urine infections, and denies bloody urine. Skin: The patient denies a history of skin cancer, denies bleeding/changing moles, and denies a history of skin rash. Neurologic: The patient denies a history of epilepsy/convulsions, denies headaches, denies head/spinal injuries, and denies stroke/TIA. Psychiatric: The patient denies psychiatric medications, denies depression, and denies voices, denies substance abuse. Endocrine: The patient denies thyroid disorders, notes diabetes, and denies hormonal problems. Hematologic: The patient denies a history of bruising, denies bleeding, and denies anemia, denies blood clots. Infections: The patient denies a history of measles and mumps, denies rheumatic fever, and denies sexually transmitted diseases. Musculoskeletal: The patient denies back pain/injury, denies back problems, denies sciatica, denies knee/foot trouble, notes arthritis PHYSICAL EXAMINATION: General: The patient is 54 year old female, well nourished, well hydrated in no acute distress. The patient is oriented to time, place, and person. VITALS: Blood pressure 134/90, pulse 92, temperature 36.1 ?C (97 ?F), temperature source Temporal, resp. rate 14, height 170.2 cm (5' 7), weight 96.2 kg (212 lb), SpO2 98%. Body mass index is 33.2 kg/m?. Head: Normal cephalic, atraumatic Eyes: pupils are equally round, sclera are clear/anicteric Neck is supple with no tracheal deviation Cardiac: normal heart sounds, regular Respiratory: Normal respiratory excursion and pattern. Abdominal exam: benign Extremities: no clubbing, cyanosis or edema. Neuro: non focal Psych: normal mood The sensitive examination was discussed with the Patient or Patient's Authorized Riding Teacher. As applicable, any other physician, advance practice provider, medical student, or other health professional student that will be observing or involved in the sensitive examination for educational or training purposes was discussed with the Patient or Authorized Riding Teacher. The Patient or Authorized Riding Teacher has agreed to proceed with the sensitive examination. (Sensitive examination includes inspection and/or palpation of the breasts, pelvis, prostate and anorectal regions) Assessment IMPRESSION: possible ischemic colitis PLAN: I have discussed the above with the patient. I have offered colonoscopy , possible biopsies I have explained the procedure to the patient. I have counseled the patient as to the risks of the procedure, including but not limited to: infection, bleeding, injury to any intrabdominal organs such as liver/spleen, perforation of the GI tract, inability to complete the procedure, complications of anesthesia, etc. - the patient understands. The patient wishes to proceed. I have counseled patient to maintain good hydration, drink plenty of fluids to avoid problems with ischemic colitis. I have answered all questions to the patient?s satisfaction and the patient has no further questions. I have educated the patient as to the colon cleansing regimen and I have prescribed Golytely for the colon cleansing solution. The patient will be scheduled for the procedure at [facility] Diagnoses: (K52.9) Colitis (K38.9) Appendicolith (I10) Essential hypertension I have confirmed and edited as necessary, the PFSH and ROS obtained by others. Consultation requested by Dr. Antonio Hiu for an opinion regarding patient's recent hospitalization for presumed ischemic colitis. My final recommendations will be communicated back to the requesting physician by way of shared Medical record or letter to requesting physician via US mail. Medical Decision Making: Problems: Low: Stable chronic illness Risk: Low: Low risk from testing/treatment Medical Decision Making Level: 3 - Low Jennifer Nelson MD [1] Social History Tobacco Use Smoking status: Former Current packs/day: 0.00 Average packs/day: 0.5 packs/day for 10.0 years (5.0 ttl pk-yrs) Types: Cigarettes Start date: 04/29/2001 Quit date: 04/30/2011 Years since quittin.5 Smokeless tobacco: Never Vaping Use Vaping status: Never Used Substance Use Topics Alcohol use: Not Currently Alcohol/week: 6.0 standard drinks of alcohol Types: 6 Glasses of wine per week Drug use: Never CNOV Observed: 11/12/2024 3:45 PM Status: COMPLETED Source: [facility] Office Visit ([facility]) MALIK NEELY ([id number]) 1970 F Date Time Provider Department 11/12/24 3:45 PM JENNIFER NELSON During your visit today, we recorded the following information about you: Temperature Pulse Respiration Blood pressure 97 degrees 92/minute 14/minute 134/90 Weight Height 96.2 kg 1.702 m Jennifer Cartwright LPN 11/15/2024 1:15 PM Signed REVIEW OF SYSTEMS: General: The patient denies fatigue, denies weight loss, denies weight gain, denies feeling hot, and denies feelings of cold. Eyes: The patient denies glaucoma, denies eye injury/surgery, wears glasses or contacts. Ear/Nose/Throat: The patient denies allergies, denies hayfever, denies ear infections, and denies bloody noses. Cardiovascular: The patient denies chest pain, denies heart disease, notes high blood pressure,denies cardiac stent, denies prior heart attack, denies irregular heart beat, denies high cholesterol, denies poor circulation, denies heart failure, other cardiac issues, denies claudication, denies cold feet, denies peripheral arterial stent. Respiratory: The patient denies tuberculosis, denies pneumonia, denies frequent cough, denies pulmonary embolism, denies shortness of breath, and denies coughing up blood. Gastrointestinal: The patient denies difficulty swallowing, denies acid reflux, denies ulcers, notes nausea/vomiting, denies jaundice/hepatitis, denies gallbladder problems, denies black or tarry stools, denies hemorrhoids, denies bleeding from rectum, denies diverticulitis, denies constipation, notes diarrhea, denies loss of stool control, and denies hernias. Kidney/Bladder: The patient denies kidney stones, denies urine infections, and denies bloody urine. Skin: The patient denies a history of skin cancer, denies bleeding/changing moles, and denies a history of skin rash. Neurologic: The patient denies a history of epilepsy/convulsions, denies headaches, denies head/spinal injuries, and denies stroke/TIA. Psychiatric: The patient denies psychiatric medications, denies depression, and denies voices, denies substance abuse. Endocrine: The patient denies thyroid disorders, notes diabetes, and denies hormonal problems. Hematologic: The patient denies a history of bruising, denies bleeding, and denies anemia, denies blood clots. Infections: The patient denies a history of measles and mumps, denies rheumatic fever, and denies sexually transmitted diseases. Musculoskeletal: The patient denies back pain/injury, denies back problems, denies sciatica, denies knee/foot trouble, notes arthritis, or denies gout. When was patient's last Mammogram screening? August 2024 at [place] Last Colonoscopy: 09/22/2021 CLARISA De La Cruz, Jennifer Berger MD 11/12/2024 4:01 PM Signed CLEAR LIQUID DIET FOR ONE (or TWO) DAYS - no red colored items. Water, tea/coffee (no dairy creamer), Gatorade/Powerade, broths, jello, Popsicles, juices without pulp, soda Avoid high fiber content foods about five days prior to procedure as they tend to stay in the colon longer and are harder to clear from your colon. Take the GOLYTELY (preferably chilled in the refrigerator the night before) and divide in two - drink each half about 3-6 hours apart from each other - DAY PRIOR TO PROCEDURE Drink plenty of the liquids, preferably water, so as not to get dehydrated. Patients may take their medications on the morning of the procedure with sips of water and they may have small sips of water up until 4 hours prior to procedure. If you feel that you are not cleaned out enough, can take Fleets enemas the morning of the procedure - one or two. Hold HCTZ the day of the procedure. It is very important to follow the above, because if there is still retained fecal material in your colon, then parts of your colon may not be visualized and you may have to repeat the procedure (another day possibly even another location). If you feel that you have a slow moving colon (or if you were told in the past that your colon cleanse was not adequate), then you may want to consider being on a clear liquid diet for two days prior to the procedure (to ensure your colon is entirely cleaned out) If you have any questions, please contact the office at Jennifer Nelson MD 11/15/2024 1:15 PM Signed HISTORY AND PHYSICAL Malik Neely 1970 REFERRING PHYSICIAN: Antonio Hui,* CHIEF COMPLAINT: Consult HPI: The patient is a 54 year old female was admitted to hospital at [facility] for abdominal pain for a few days. She stated that it was right sided and lower abdominal pain. CT scan 10/28/2024 - left colon and splenic flexure wall thickening and inflammatory changes She had been tentatively diagnosed with ischemic colitis. She does have hypertension. She has completed round of antibiotics after her hospitalization. She denies abdominal pain at present. She was also found to have appendicolith on the above CT scan. Last colonoscopy 2021 at [place]. She notes no blood in her stools. She denies constipation or diarrhea. PAST MEDICAL HISTORY Diagnosis Date Acute meniscal tear of left knee 2013 s/p repair Arthritis of left shoulder region mild DDD (degenerative disc disease), cervical DDD (degenerative disc disease), lumbar [facility] Cast[facility] Diabetes mellitus type II (HCC) [...] BREAST 07/2022 SCOPE, PLANTAR FASCIOTOMY Right 2013 Current Outpatient Medications Medication Sig ondansetron orally disintegrating (ZOFRAN ODT) 4 mg disintegrating tablet Take 1 tablet by mouth every 8 hours as needed for nausea/vomiting. tirzepatide (MOUNJARO) 15 mg/0.5 mL pen injector Inject 15 mg subcutaneously one time a week. meloxicam (MOBIC) 15 mg tablet Take 1 tablet by mouth once daily. hydroCHLOROthiazide 12.5 mg tablet Take 1 tablet by mouth once daily. losartan (COZAAR) 50 mg tablet Take two tablets daily metFORMIN (GLUCOPHAGE) 500 mg tablet Take 1 tablet by mouth two times a day with meals. . pantoprazole DR (PROTONIX) 40 mg tablet Take 1 tablet by mouth once daily. simvastatin (ZOCOR) 10 mg tablet Take 1 tablet by mouth daily at bedtime. glucosamine/msm/chondroit sulf (GLUCOSAMINE [id number] ORAL) EPINEPHrine (EPIPEN) 0.3 mg/0.3 mL auto-injector 1 INJECTION NEEDED IN THIGH Cholecalciferol, Vitamin D3, 25 mcg (1,000 unit) [...] D ORAL) Take by mouth twice daily. peg 3350-Electrolytes (GOLYTELY) 236-22.74-6.74 -5.86 gram suspension Refer to printed prep instructions from your provider. fluconazole (DIFLUCAN) 150 mg tablet levoFLOXacin (LEVAQUIN) 750 mg tablet Take 750 mg by mouth once daily. metroNIDAZOLE (FLAGYL) 500 mg tablet Take 500 mg by mouth. No current facility-administered medications for this visit. ALLERGIES: Codeine, Contrast Dye, Shellfish Containing Products, Squash, Sulfa Dyne, and Maypearl PERSONAL HISTORY: SOCIAL HISTORY[1] FAMILY HISTORY Problem Relation Age of Onset Hypertension Mother Heart Failure Mother 64 Heart Mother stents Hypertension Father Coronary Artery Disease Father 59 MD in 2010- LDa Thyroid Sister other (Gallbladder removed) Sister No Known Problems Sister Thyroid Sister No Known Problems Brother Heart Maternal Grandmother No Known Problems Maternal Grandfather Rheumatologic disease Paternal Grandmother arthritis No Known Problems Paternal Grandfather REVIEW OF SYSTEMS: General: The patient denies fatigue, denies weight loss, denies weight gain, denies feeling hot, and denies feelings of cold. Eyes: The patient denies glaucoma, denies eye injury/surgery, wears glasses or contacts. Ear/Nose/Throat: The patient denies allergies, denies hayfever, denies ear infections, and denies bloody noses. Cardiovascular: The patient denies chest pain, denies heart disease, notes high blood pressure,denies cardiac stent, denies prior heart attack, denies irregular heart beat, denies high cholesterol, denies poor circulation, denies heart failure, other cardiac issues, denies claudication, denies cold feet, denies peripheral arterial stent. Respiratory: The patient denies tuberculosis, denies pneumonia, denies frequent cough, denies pulmonary embolism, denies shortness of breath, and denies coughing up blood. Gastrointestinal: The patient denies difficulty swallowing, denies acid reflux, denies ulcers, notes nausea/vomiting, denies jaundice/hepatitis, denies gallbladder problems, denies black or tarry stools, denies hemorrhoids, denies bleeding from rectum, denies diverticulitis, denies constipation, notes diarrhea, denies loss of stool control, and denies hernias. Kidney/Bladder: The patient denies kidney stones, denies urine infections, and denies bloody urine. Skin: The patient denies a history of skin cancer, denies bleeding/changing moles, and denies a history of skin rash. Neurologic: The patient denies a history of epilepsy/convulsions, denies headaches, denies head/spinal injuries, and denies stroke/TIA. Psychiatric: The patient denies psychiatric medications, denies depression, and denies voices, denies substance abuse. Endocrine: The patient denies thyroid disorders, notes diabetes, and denies hormonal problems. Hematologic: The patient denies a history of bruising, denies bleeding, and denies anemia, denies blood clots. Infections: The patient denies a history of measles and mumps, denies rheumatic fever, and denies sexually transmitted diseases. Musculoskeletal: The patient denies back pain/injury, denies back problems, denies sciatica, denies knee/foot trouble, notes arthritis PHYSICAL EXAMINATION: General: The patient is 54 year old female, well nourished, well hydrated in no acute distress. The patient is oriented to time, place, and person. VITALS: Blood pressure 134/90, pulse 92, temperature 36.1 ?C (97 ?F), temperature source Temporal, resp. rate 14, height 170.2 cm (5' 7), weight 96.2 kg (212 lb), SpO2 98%. Body mass index is 33.2 kg/m?. Head: Normal cephalic, atraumatic Eyes: pupils are equally round, sclera are clear/anicteric Neck is supple with no tracheal deviation Cardiac: normal heart sounds, regular Respiratory: Normal respiratory excursion and pattern. Abdominal exam: benign Extremities: no clubbing, cyanosis or edema. Neuro: non focal Psych: normal mood The sensitive examination was discussed with the Patient or Patient's Authorized Riding Teacher. As applicable, any other physician, advance practice provider, medical student, or other health professional student that will be observing or involved in the sensitive examination for educational or training purposes was discussed with the Patient or Authorized Riding Teacher. The Patient or Authorized Riding Teacher has agreed to proceed with the sensitive examination. (Sensitive examination includes inspection and/or palpation of the breasts, pelvis, prostate and anorectal regions) Assessment IMPRESSION: possible ischemic colitis PLAN: I have discussed the above with the patient. I have offered colonoscopy , possible biopsies I have explained the procedure to the patient. I have counseled the patient as to the risks of the procedure, including but not limited to: infection, bleeding, injury to any intrabdominal organs such as liver/spleen, perforation of the GI tract, inability to complete the procedure, complications of anesthesia, etc. - the patient understands. The patient wishes to proceed. I have counseled patient to maintain good hydration, drink plenty of fluids to avoid problems with ischemic colitis. I have answered all questions to the patient?s satisfaction and the patient has no further questions. I have educated the patient as to the colon cleansing regimen and I have prescribed Golytely for the colon cleansing solution. The patient will be scheduled for the procedure at [facility] Diagnoses: (K52.9) Colitis (K38.9) Appendicolith (I10) Essential hypertension I have confirmed and edited as necessary, the PFSH and ROS obtained by others. Consultation requested by Dr. Antonio Hui for an opinion regarding patient's recent hospitalization for presumed ischemic colitis. My final recommendations will be communicated back to the requesting physician by way of shared Medical record or letter to requesting physician via US mail. Medical Decision Making: Problems: Low: Stable chronic illness Risk: Low: Low risk from testing/treatment Medical Decision Making Level: 3 - Low Jennifer Nelson MD [1] Social History Tobacco Use Smoking status: Former Current packs/day: 0.00 Average packs/day: 0.5 packs/day for 10.0 years (5.0 ttl pk-yrs) Types: Cigarettes Start date: 04/29/2001 Quit date: 04/30/2011 Years since quittin.5 Smokeless tobacco: Never Vaping Use Vaping status: Never Used Substance Use Topics Alcohol use: Not Currently Alcohol/week: 6.0 standard drinks of alcohol Types: 6 Glasses of wine per week Drug use: Never Referring Provider: ANTONIO HUI [[id number]] Allergies As of Date: 11/12/2024 Noted Allergy Reaction CODEINE 10/06/2011 10 - Anaphylaxis CONTRAST DYE 10/06/2011 10 - Anaphylaxis SHELLFISH CONTAINING PRODUCTS 04/29/2016 8 - GI Upset SQUASH 03/13/2018 8 - GI Upset SULFA DYNE 10/06/2011 10 - Anaphylaxis WALNUT 03/13/2018 8 - GI Upset Date Reviewed: 11/12/2024 Reviewed by: Jennifer Cartwright LPN - Fully Assessed Reason for Visit: Consult [173] Visit Diagnoses:Colitis [K52.9] Appendicolith [K38.9] Essential hypertension [I10] Order(s):CONSULT TO GENERAL SURGERY [9011] Order #: [id number]: 1 COLONOSCOPY DIAGNOSTIC [GI11] Order #: [id number] FUTURE peg 3350-Electrolytes (GOLYTELY) 236-22.74-6.74 -5.86 gram suspensionRefer to printed prep instructions from your provider.Disp: 4000 mLRfl: 0 Prescriptions as of 11/15/2024 - peg 3350-Electrolytes (GOLYTELY) 236-22.74-6.74 -5.86 gram suspension Refer to printed prep instructions from your provider. - fluconazole (DIFLUCAN) 150 mg tablet - levoFLOXacin (LEVAQUIN) 750 mg tablet Take 750 mg by mouth once daily. - metroNIDAZOLE (FLAGYL) 500 mg tablet Take 500 mg by mouth. - ondansetron orally disintegrating (ZOFRAN ODT) 4 mg disintegrating tablet Take 1 tablet by mouth every 8 hours as needed for nausea/vomiting. - tirzepatide (MOUNJARO) 15 mg/0.5 mL pen injector Inject 15 mg subcutaneously one time a week. - meloxicam (MOBIC) 15 mg tablet Take 1 tablet by mouth once daily. - hydroCHLOROthiazide 12.5 mg tablet Take 1 tablet by mouth once daily. - losartan (COZAAR) 50 mg tablet Take two tablets daily - metFORMIN (GLUCOPHAGE) 500 mg tablet Take 1 tablet by mouth two times a day with meals. . - pantoprazole DR (PROTONIX) 40 mg tablet Take 1 tablet by mouth once daily. - simvastatin (ZOCOR) 10 mg tablet Take 1 tablet by mouth daily at bedtime. - glucosamine/msm/chondroit sulf (GLUCOSAMINE [id number] ORAL) - EPINEPHrine (EPIPEN) 0.3 mg/0.3 mL auto-injector 1 INJECTION NEEDED IN THIGH - Cholecalciferol, Vitamin D3, 25 mcg (1,000 [...] twice daily. Problem List As Of Date 11/12/2024 Noted Resolved Hypertension [I10] Hyperlipidemia [E78.5] GERD [...] breast reduction [Z98.890] 08/14/2022 Obesity [E66.9] 10/07/2023 Other instructions from your clinician: CLEAR LIQUID DIET FOR ONE (or TWO) DAYS - no red colored items. Water, tea/coffee (no dairy creamer), Gatorade/Powerade, broths, jello, Popsicles, juices without pulp, soda Avoid high fiber content foods about five days prior to procedure as they tend to stay in the colon longer and are harder to clear from your colon. Take the GOLYTELY (preferably chilled in the refrigerator the night before) and divide in two - drink each half about 3-6 hours apart from each other - DAY PRIOR TO PROCEDURE Drink plenty of the liquids, preferably water, so as not to get dehydrated. Patients may take their medications on the morning of the procedure with sips of water and they may have small sips of water up until 4 hours prior to procedure. If you feel that you are not cleaned out enough, can take Fleets enemas the morning of the procedure - one or two. Hold HCTZ the day of the procedure. It is very important to follow the above, because if there is still retained fecal material in your colon, then parts of your colon may not be visualized and you may have to repeat the procedure (another day possibly even another location). If you feel that you have a slow moving colon (or if you were told in the past that your colon cleanse was not adequate), then you may want to consider being on a clear liquid diet for two days prior to the procedure (to ensure your colon is entirely cleaned out) If you have any questions, please contact the office at Prescriptions ordered this encounter Disp Refills Start End PEG 3350-ELECTROLYTES 236 GRAM-22.74* 4000* 0 11/12/2024 Sig: Refer to printed prep instructions from your provider. Letter Text Encounter Status:Closed by JENNIFER NELSON on 11/15/24 PROGRESS Observed: 11/12/2024 3:27 PM Status: COMPLETED Source: [facility] HNO ID: [id number] Author: JENNIFER CARTWRIGHT LPN Service: ? Author Type: Licensed Nurse Type: Progress Notes Filed: 11/15/2024 13:15 Note Text: REVIEW OF SYSTEMS: General: The patient denies fatigue, denies weight loss, denies weight gain, denies feeling hot, and denies feelings of cold. Eyes: The patient denies glaucoma, denies eye injury/surgery, wears glasses or contacts. Ear/Nose/Throat: The patient denies allergies, denies hayfever, denies ear infections, and denies bloody noses. Cardiovascular: The patient denies chest pain, denies heart disease, notes high blood pressure,denies cardiac stent, denies prior heart attack, denies irregular heart beat, denies high cholesterol, denies poor circulation, denies heart failure, other cardiac issues, denies claudication, denies cold feet, denies peripheral arterial stent. Respiratory: The patient denies tuberculosis, denies pneumonia, denies frequent cough, denies pulmonary embolism, denies shortness of breath, and denies coughing up blood. Gastrointestinal: The patient denies difficulty swallowing, denies acid reflux, denies ulcers, notes nausea/vomiting, denies jaundice/hepatitis, denies gallbladder problems, denies black or tarry stools, denies hemorrhoids, denies bleeding from rectum, denies diverticulitis, denies constipation, notes diarrhea, denies loss of stool control, and denies hernias. Kidney/Bladder: The patient denies kidney stones, denies urine infections, and denies bloody urine. Skin: The patient denies a history of skin cancer, denies bleeding/changing moles, and denies a history of skin rash. Neurologic: The patient denies a history of epilepsy/convulsions, denies headaches, denies head/spinal injuries, and denies stroke/TIA. Psychiatric: The patient denies psychiatric medications, denies depression, and denies voices, denies substance abuse. Endocrine: The patient denies thyroid disorders, notes diabetes, and denies hormonal problems. Hematologic: The patient denies a history of bruising, denies bleeding, and denies anemia, denies blood clots. Infections: The patient denies a history of measles and mumps, denies rheumatic fever, and denies sexually transmitted diseases. Musculoskeletal: The patient denies back pain/injury, denies back problems, denies sciatica, denies knee/foot trouble, notes arthritis, or denies gout. When was patient's last Mammogram screening? August 2024 at [place] Last Colonoscopy: 09/22/2021 CLARISA De La Cruz Observed: 11/12/2024 12:00 AM Status: COMPLETED Source: [facility] Telephone ([employer]) MALIK NEELY ([id number]) 1970 F Date Time Provider Department 11/12/24 JENNIFER NELSON [employer] During your visit today, we recorded the following information about you: Nelida Cunningham 11/12/2024 4:33 PM Signed Was completing checkout 11-12 spoke to patient, she stated she is scheduled on 12-20-24 in [place] for her colonoscopy. I added her procedure to your day in [place]. Allergies As of Date: 11/12/2024 Noted Allergy Reaction CODEINE 10/06/2011 10 - Anaphylaxis CONTRAST DYE 10/06/2011 10 - Anaphylaxis SHELLFISH CONTAINING PRODUCTS 04/29/2016 8 - GI Upset SQUASH 03/13/2018 8 - GI Upset SULFA DYNE 10/06/2011 10 - Anaphylaxis WALNUT 03/13/2018 8 - GI Upset Date Reviewed: 11/12/2024 Reviewed by: Jennifer Cartwright LPN - Fully Assessed Prescriptions as of 11/12/2024 - peg 3350-Electrolytes (GOLYTELY) 236-22.74-6.74 -5.86 gram suspension Refer to printed prep instructions from your provider. - fluconazole (DIFLUCAN) 150 mg tablet - levoFLOXacin (LEVAQUIN) 750 mg tablet Take 750 mg by mouth once daily. - metroNIDAZOLE (FLAGYL) 500 mg tablet Take 500 mg by mouth. - ondansetron orally disintegrating (ZOFRAN ODT) 4 mg disintegrating tablet Take 1 tablet by mouth every 8 hours as needed for nausea/vomiting. - tirzepatide (MOUNJARO) 15 mg/0.5 mL pen injector Inject 15 mg subcutaneously one time a week. - meloxicam (MOBIC) 15 mg tablet Take 1 tablet by mouth once daily. - hydroCHLOROthiazide 12.5 mg tablet Take 1 tablet by mouth once daily. - losartan (COZAAR) 50 mg tablet Take two tablets daily - metFORMIN (GLUCOPHAGE) 500 mg tablet Take 1 tablet by mouth two times a day with meals. . - pantoprazole DR (PROTONIX) 40 mg tablet Take 1 tablet by mouth once daily. - simvastatin (ZOCOR) 10 mg tablet Take 1 tablet by mouth daily at bedtime. - glucosamine/msm/chondroit sulf (GLUCOSAMINE [id number] ORAL) - EPINEPHrine (EPIPEN) 0.3 mg/0.3 mL auto-injector 1 INJECTION NEEDED IN THIGH - Cholecalciferol, Vitamin D3, 25 mcg (1,000 [...] twice daily. Problem List As Of Date 11/12/2024 Noted Resolved Hypertension [I10] Hyperlipidemia [E78.5] GERD [...] 08/14/2022 Obesity [E66.9] 10/07/2023 Encounter Status:Closed by NELIDA CUNNINGHAM on 11/12/24 SERGIO Observed: 11/09/2024 12:00 AM Status: COMPLETED Source: [facility] Telephone ([employer]) MALIK NEELY ([id number]) 1970 F Date Time Provider Department 11/09/24 ANTONIO HUI [employer] During your visit today, we recorded the following information about you: Catherine Beach LPN 11/09/2024 2:14 PM Signed [employer] GONZALE[employer] rec'd for mounjaro. This was completed electronically and approved. Pharmacy notified. Prior authorization approved Payer: [facility] [phone] Note from payer: CaseId:[id number];Status:Approved;Review Type:Prior Auth;Coverage Start Date:10/10/2024;Coverage End Date:11/09/2025; Approval Details Authorized from October 10, 2024 to November 09, 2025 Electronic appeal: Not supported Prior auth initiated by: Catherine Beach LPN View History Medication Being Authorized tirzepatide (MOUNJARO) 15 mg/0.5 mL pen injector Inject 15 mg subcutaneously one time a week. Dispense: 6 mL Refills: 1 Start: 08/22/2024 End: 02/18/2025 Class: Normal This order has been released to its destination. To be filled at: [id number] - [place] [address] [address] [facility] - [phone] [id number] Allergies As of Date: 11/09/2024 Noted Allergy Reaction CODEINE 10/06/2011 10 - Anaphylaxis CONTRAST DYE 10/06/2011 10 - Anaphylaxis SHELLFISH CONTAINING PRODUCTS 04/29/2016 8 - GI Upset SQUASH 03/13/2018 8 - GI Upset SULFA DYNE 10/06/2011 10 - Anaphylaxis WALNUT 03/13/2018 8 - GI Upset Date Reviewed: 11/05/2024 Reviewed by: Staci Langley MA - Fully Assessed Reason for Visit: Insurance Authorization [[id number]] Prescriptions as of 11/09/2024 - fluconazole (DIFLUCAN) 150 mg tablet - levoFLOXacin (LEVAQUIN) 750 mg tablet Take 750 mg by mouth once daily. - metroNIDAZOLE (FLAGYL) 500 mg tablet Take 500 mg by mouth. - ondansetron orally disintegrating (ZOFRAN ODT) 4 mg disintegrating tablet Take 1 tablet by mouth every 8 hours as needed for nausea/vomiting. - tirzepatide (MOUNJARO) 15 mg/0.5 mL pen injector Inject 15 mg subcutaneously one time a week. - meloxicam (MOBIC) 15 mg tablet Take 1 tablet by mouth once daily. - hydroCHLOROthiazide 12.5 mg tablet Take 1 tablet by mouth once daily. - losartan (COZAAR) 50 mg tablet Take two tablets daily - metFORMIN (GLUCOPHAGE) 500 mg tablet Take 1 tablet by mouth two times a day with meals. . - pantoprazole DR (PROTONIX) 40 mg tablet Take 1 tablet by mouth once daily. - simvastatin (ZOCOR) 10 mg tablet Take 1 tablet by mouth daily at bedtime. - glucosamine/msm/chondroit sulf (GLUCOSAMINE [id number] ORAL) - EPINEPHrine (EPIPEN) 0.3 mg/0.3 mL auto-injector 1 INJECTION NEEDED IN THIGH - Cholecalciferol, Vitamin D3, 25 mcg (1,000 [...] twice daily. Problem List As Of Date 11/09/2024 Noted Resolved Hypertension [I10] Hyperlipidemia [E78.5] GERD [...] 08/14/2022 Obesity [E66.9] 10/07/2023 Encounter Status:Closed by CATHERINE BEACH on 11/09/24 CBC W AUTO DIFF BLD Collected: 11/05/2024 2:[address] atus: F Source: [facility] Order Comment: Specimen Type : BLOOD SPECIMEN Ordering Facility: [facility] Address: [address] [place] [address] TYPE CODE TESTS RESULT OUT OF RANGE REFERENCE UNITS LAB 6690-2(LOINC) WBC # Bld Auto 7.94 3.70-11.00 k/uL LAB 789-8(LOINC) RBC # Bld Auto 4.28 3.90-5.20 m/ uL LAB 718-7(LOINC) Hgb Bld-mCnc 13.3 11.5-15.5 g/dL LAB 4544-3(LOINC) Hct VFr Bld Auto 39.2 36.0-46.0 % LAB 787-2(LOINC) MCV RBC Auto 91.6 80.0-100.0 fL LAB 785-6(LOINC) MCH RBC Qn Auto 31.1 26.0-34.0 p g LAB 786-4(LOINC) MCHC RBC Auto-mCnc 33.9 30.5-36.0 g/dL LAB 70878-3([facility]) RDW RBC-Rto 12.5 11.5-15.0 % LAB 777-3([facility]) Platelet # Bld Auto 380 150-400 k/uL LAB 23337-6([facility]) PMV Bld Auto 11.2 9.0-12.7 fL LAB 770-8([facility]) Neutrophils/leuk NFr Bld Auto 67.5 % LAB 751-8([facility]) Neutrophils # Bld Auto 5.36 1.45-7.50 k/uL LAB 736-9([facility]) Lymphocytes/leuk NFr Bld Auto 19.5 % LAB 731-0([facility]) Lymphocytes # Bld Auto 1.55 1.00-4.00 k/uL LAB 5905-5([facility]) Monocytes/leuk NFr Bld Auto 9.2 % LAB 742-7([facility]) Monocytes # Bld Auto 0.73 <0.87 k/uL LAB 713-8([facility]) Eosinophil/leuk NFr Bld Auto 3.0 % LAB 711-2([facility]) Eosinophil # Bld Auto 0.24 <0.46 k/uL LAB 706-2([facility]) Basophils/leuk NFr Bld Auto 0.4 % LAB 704-7([facility]) Basophils # Bld Auto 0.03 <0.11 k/uL LAB 93596-6([facility]) Imm Granulocytes/piper k NFr Bld Auto 0.4 % LAB 37499-4([facility]) Imm Granulocytes # Bld Auto 0.03 <0.10 k/uL LAB 03846-8([facility]) nRBC/100 WBC Bld-Rto 0.0 /100 WBC LAB 771-6([facility]) nRBC # Bld Auto <0.01 <0.01 k/u L LAB 74778-8([facility]) Differential method Bld Auto Performed By: [facility] CLIA [id number] [address] [place] [address] [place] COMP METAB 2000 PNL SERPL Collected: 2:39 PM Status: F Source: [facility] Order Comment: Specimen Type : BLOOD SPECIMEN Ordering Facility: [facility] Address: [address], [place] [id number] TYPE CODE TESTS RESULT OUT OF RANGE REFERENCE UNITS LAB 2885-2(LOINC) Prot SerPl-mCnc 7.0 6.3-8.0 g/dL LAB 1751-7(LOINC) Albumin SerPl-mCnc 4.2 3.9-4.9 g/dL LAB 41247-5(LOINC) Calcium SerPl-mCnc 9.9 8.5-10.2 mg/dL LAB 1975-2(LOINC) Bilirub SerPl-mCnc 0.2 0.2-1.3 mg/dL LAB 6768-6(LOINC) ALP SerPl-cCnc 66 34-123 U/L LAB 1920-8(LOINC) AST SerPl-cCnc 38 High 13-35 U/L LAB 1742-6(LOINC) ALT SerPl-cCnc 48 High 7-38 U/L LAB 2345-7(LOINC) Glucose SerPl-mCnc 88 74-99 mg/dL Result Comment: The [place] Diabetes Association (ADA) provides guidance for cutoff [...] Standards of Medical Care in Diabetes 2016, [place] Diabetes Association. Diabetes Care. 2016.39(Suppl 1). LAB 3094-0(LOINC) BUN SerPl-mCnc 8 7-21 mg/dL LAB 2160-0(LOINC) Creat SerPl-mCnc 0.61 0.58-0.96 mg/dL LAB 2951-2(LOINC) Sodium SerPl-sCnc 137 136-144 mmol/L LAB 2823-3(LOINC) Potassium SerPl-sCnc 4.4 3.7-5.1 mmol/L LAB 2075-0(LOINC) Chloride SerPl-sCnc 100 98-107 mmol/L LAB 2027-9(LOINC) CO2 SerPl-sCnc 25 22-30 mmol/L LAB 78629-1(LOINC) Anion Gap SerPl-sCnc 12 8-15 mmol/L LAB 05848-4(LOINC) eGFRcr SerPlBld CKD-EPI 2020 105 >=60 mL/min/1. 73m??? Result Comment: Estimated Gl omerular Filtration Rate (eGFR) is calculated using the 2020 CKD-EPI creatinine equation. This equation utilizes serum creatinine, sex, and age as parameters. The creatinine assay has traceable calibration to isotope dilution-mass spectrometry. Refer to KDIGO guidelines for clinical interpretation. In patients with unstable renal function, e.g. those with acute kidney injury, the eGFR may not accurately reflect actual GFR. Performed By: [facility] CLIA [id number] [address] [place] [address] [place] LIPID PANEL, NONFASTING Collected: 11/05/2024 2:39 PM Status: F Source: [facility] Order Comment: Specimen Type : BLOOD SPECIMEN Ordering Facility: [facility] Address: [address] [place] [address] TYPE CODE TESTS RESULT OUT OF RANGE REFERENCE UNITS LAB CHOLNF TOTAL CHOLESTEROL NF 162 <200 mg/dL Result Comment: <200 mg/dL, Desirable 200-239 mg/dL, Borderline high >239 mg/dL, High LAB TRIGNF TRIGLYCERIDES, NF 87 <150 mg/dL Result Comment: <150 mg/dL, Normal 150-199 mg/dL, Borderline high 200-499 mg/dL, High >499 mg/dL, Very high LAB HDLNF HDL CHOLESTEROL, NF 49 >39 mg/dL Result Comment: 40-59 mg/dL, Acceptable >59 mg/dL, High: Negative risk factor for coronary heart disease <40 mg/dL, Low: Positive risk factor for coronary heart disease LAB LDLNF LDL CHOLESTEROL CALCULATED, NF 97 <100 mg/dL Result Comment: <100 mg/dL, Optimal 100-129 mg/dL, Near optimal/above optimal 130-159 mg/dL, Borderline high 160-189 mg/dL, High >189 mg/dL, Very high Secondary prevention optimal LDL Cholesterol levels are recommended to be <70 mg/dL LDL cholesterol is calculated using the [place]-NIH equation. LAB NOHDLN NON HDL CHOL, NF 113 <130 mg/dL Result Comment: <130 mg/dL, Optimal 130-159 mg/dL, Near optimal/above optimal 160-189 mg/dL, Borderline high 190-219 mg/dL, High >219 mg/dL, Very high Secondary prevention optimal non HDL Cholesterol levels are recommended to be <100 mg/dL LAB VLDLNF VLDL CHOLESTEROL, NF 14 <30 mg/dL LAB TCHDLN T CHOL/HDL RATIO NF 3.31 <5.10 mg/dL LAB LDLHDN LDL/HDL RATIO, NF 1.98 <2.54 mg/dL Result Comment: Reference: 1. National Cholesterol Education Program ATP III Guideline At-A-Glance Quick Desk Reference: National Heart, Lung, and Blood [place]. National Institutes of Health. 2001: NIH Publication No. 01-3305. 2. An International Atherosclerosis Society position paper: global recommendations for the management of dyslipidemia: executive summary, Atherosclerosis. 2014: 232(2):410-413. Performed By: [facility] CLIA [id number] [address] [place] [address] DEPRECATED HGB A1C BLD Collected: 11/05 2:39 PM Status: F Source: [facility] Order Comment: Specimen Type : BLOOD SPECIMEN Ordering Facility: [facility] Address: [address] [place] [address] TYPE CODE TESTS RESULT OUT OF RANGE REFERENCE UNITS LAB 4548-4(LOINC) HbA1c MFr Bld 4.6 4.3-5.6 % Result Comment: [place] [employer] guidelines indicate that patients with HgbA1c in the range 5.7-6.4% are at increased risk for development of diabetes, and intervention by lifestyle modification may be beneficial. HgbA1c greater or equal to 6.5% is considered diagnostic of diabetes. LAB 61739-1(LOINC) Est. average glucose Bld gHb Est-mCnc 85 mg/dL Result Comment: eAG: (Estima misbah average glucose) is a calculated value from HgbA1c and is b2b outside sales representative of the average blood glucose level in the last 2-3 month period. Performed By: [facility] CLIA [id number] [address] [place] [address] [place] Observed: 11/05/2024 2:20 PM Status: COMPLETED Source: [facility] MALIK NEELY ([id number]) 1970 F Date Time Provider Department 11/05/24 2:20 PM ANTONIO HUI [facility] During your visit today, we recorded the following information about you: Temperature Pulse Blood pressure Weight 97.8 degrees 80/minute 121/85 97.5 kg Height 1.702 m Antonio Hui MD 11/05/2024 2:35 PM Signed Chief Complaint Patient presents with: Hospital F/U Recording using [employer] software for draft documentation of the visit was discussed with the patient/authorized b2b outside sales representative; all questions welcomed and answered. Patient/authorized b2b outside sales representative agreed to proceed HPI Malik Neely is a 54 year old female who presents here today for Above Complaints. Abdominal Pain: - Malik Neely was hospitalizedn at [facility] from 10/28 to 11/02 for colitis and appendicolith. - Initial presentation included severe abdominal pain, nausea with vomiting, high lactic acid levels and CT abdomen/pelvis with possible appendicolith without appendicitis and subtle inflammatory changes in the distal transverse colon suggestive of mild colitis. - Treated with IV antibiotics (cefepime and Flagyl) and fluids; lactic acidosis improved. - Discharged on Levaquin and metronidazole for 8 days. Given rx for Diflucan in case of a yeast infection. - Malik is experiencing nausea, possibly from the antibiotics. - No current abdominal pain; Malik reports feeling bloated and full with decreased appetite. - No vaginal discharge or diarrhea; stools are loose but not watery. - Following a low-fiber diet as recommended. - No hematochezia or melena since discharge. - Blood glucose levels stable, averaging 88-95 mg/dL daily. Past medical history, appointments, medications, allergies reviewed. [...] Hypertension Father Coronary Artery Disease Father 59 MD in 2010- LDa Thyroid Sister Thyroid Sister Heart Maternal Grandmother Rheumatologic disease Paternal Grandmother arthritis Patient Allergies ALLERGIES Allergen Reactions Codeine Anaphylaxis Contrast Dye Anaphylaxis Shellfish Containin* GI Upset Squash GI Upset Sulfa Dyne Anaphylaxis Maypearl GI Upset Current Medications Current Outpatient Medications on File Prior to Visit Medication Sig fluconazole (DIFLUCAN) 150 mg tablet levoFLOXacin (LEVAQUIN) 750 mg tablet Take 750 mg by mouth once daily. metroNIDAZOLE (FLAGYL) 500 mg tablet Take 500 mg by mouth. tirzepatide (MOUNJARO) 15 mg/0.5 mL pen injector Inject 15 mg subcutaneously one time a week. meloxicam (MOBIC) 15 mg tablet Take 1 tablet by mouth once daily. hydroCHLOROthiazide 12.5 mg tablet Take 1 tablet by mouth once daily. losartan (COZAAR) 50 mg tablet Take two tablets daily metFORMIN (GLUCOPHAGE) 500 mg tablet Take 1 tablet by mouth two times a day with meals. . pantoprazole DR (PROTONIX) 40 mg tablet Take 1 tablet by mouth once daily. simvastatin (ZOCOR) 10 mg tablet Take 1 tablet by mouth daily at bedtime. glucosamine/msm/chondroit sulf (GLUCOSAMINE [id number] ORAL) EPINEPHrine (EPIPEN) 0.3 mg/0.3 mL auto-injector 1 INJECTION NEEDED IN THIGH Cholecalciferol, Vitamin D3, 25 mcg (1,000 unit) [...] on file prior to visit. Social History SOCIAL HISTORY[1] Review of Symptoms REVIEW OF SYSTEMS GENERAL: No weight loss, malaise or fevers RESPIRATORY: Negative for cough, hemoptysis, wheezing, COPD, dyspnea or shortness of breath CARDIOVASCULAR: Negative for chest pain, leg swelling, hypertension, CHF or palpitations GI: No nausea, vomiting, or diarrhea SKIN: Negative for lesions, rash, and itching EXAM: BP 121/85 Pulse 80 Temp 36.6 ?C (97.8 ?F) Ht 170.2 cm (5' 7) Wt 97.5 kg (215 lb) BMI 33.67 kg/m? General Appearance: Well appearing, alert, in no acute distress, well-hydrated, well nourished.. Skin: Skin color, texture, turgor normal, no suspicious rashes or lesions. Lungs: Lungs clear to auscultation. No wheezing, rhonchi, rales.. Heart: RRR without murmur, gallop, or rubs. No ectopy. Abdomen: Normal abdominal exam, Abdomen soft, non-tender. Bowel sounds normal. No masses, organomegaly. Health Maintenance List Depression Screening Never done Anxiety Screening Never done LDL Cholesterol due on 02/15/2024 HbA1C due on 04/08/2024 Mammogram Screening due on 09/11/2024 Diabetic Foot Exam due on 10/06/2024 Influenza Vaccine(1) due on 10/29/2024 Pneumococcal Vaccine: 50+(1 of 2 - PCV) due on 04/30/2025 Urine Albumin:Creatinine Ratio due on 04/30/2025 Dilated Retinal Exam due on 05/25/2025 Annual PCP Team Chronic Disease Visit due on 11/05/2025 Colorectal Cancer Screening due on 09/23/2031 DTaP,Tdap,Td Vaccine(3 - Td or Tdap) due on 09/05/2032 Hepatitis B Vaccine Completed Shingrix Vaccine Completed Cervical Cancer Screening Discontinued Hepatitis C Screening Discontinued HIV Screening Discontinued Data reviewed [facility] records from 10/28-11/02 1. Colitis (K52.9) 2. Appendicolith (K38.9) 3. Nausea (R11.0) 4. Decreased appetite (R63.0) - Recent hospitalization (10/28-11/02) for severe abdominal pain; CT imaging revealed appendicolith and colitis. - Treated with IV fluids, cefepime, and Flagyl; transitioned to oral Levaquin and metronidazole at discharge. - Lactic acidosis improved with treatment; abdominal pain resolved, currently 0/10; no fevers, hematochezia, or melena since discharge. - Nausea likely secondary to antibiotics; prescribed Zofran for symptomatic relief. - Advised to continue current antibiotics as prescribed; instructed to return to ED if symptoms worsen (abdominal pain, nausea, vomiting, hematochezia). - Encouraged continuation of low-fiber diet as recommended. - Referred to general surgery for evaluation of possible appendectomy; instructed to schedule follow-up with Dr. Cao or Dr. Nelson. 5. Diabetes mellitus type II (HCC) (E11.9) - Blood glucose readings stable (88-95 mg/dL); one elevated reading (173 mg/dL) during hospitalization attributed to dietary intake. - Order HbA1c. - Follow-up in a few weeks to review labs and discuss diabetes management in more detail. 6. Primary hypertension (I10) - BP controlled on current regimen. 7. Hyperlipidemia, unspecified hyperlipidemia type (E78.5) - Order lipid panel. Continue current regimen. Will discuss at f/u in 1 month. 8. Class 1 obesity with serious comorbidity and body mass index (BMI) of 33.0 to 33.9 in adult, unspecified obesity type (E66.811) - Stable. Will discuss further at f/u in 1 month. Antonio Hui MD [1] Social History Tobacco Use Smoking status: Former Current packs/day: 0.00 Average packs/day: 0.5 packs/day for 10.0 years (5.0 ttl pk-yrs) Types: Cigarettes Start date: 04/29/2001 Quit date: 04/30/2011 Years since quittin.5 Smokeless tobacco: Never Vaping Use Vaping status: Never Used Substance Use Topics Alcohol use: Not Currently Alcohol/week: 6.0 standard drinks of alcohol Types: 6 Glasses of wine per week Drug use: No Antonio Hui MD 11/05/2024 2:32 PM Signed - Continue your prescribed antibiotics until finished: take levofloxacin once daily and metronidazole three times daily. Also take the fluconazole as directed to prevent a yeast infection. - Take ondansetron (Zofran) at home for nausea, especially in the evening when your antibiotics bother your stomach. - Maintain a bland, low-fiber diet for the next three weeks (for example: bananas, rice, applesauce, toast); avoid high-fiber foods such as broccoli and salad. - Complete blood tests before you leave today, including A1c, cholesterol panel, complete blood count with differential, and electrolytes. - Call to schedule a follow-up appointment with a general surgeon (Dr. Cao or Dr. Nelson) within the next couple of weeks to discuss possible appendix removal. - Return to this clinic in a few weeks to review your lab results and diabetes management in more detail. - If you develop new or worsening abdominal pain, persistent nausea or vomiting, blood in your stool, or fever, seek medical attention right away. Allergies As of Date: 11/05/2024 Noted Allergy Reaction CODEINE 10/06/2011 10 - Anaphylaxis CONTRAST DYE 10/06/2011 10 - Anaphylaxis SHELLFISH CONTAINING PRODUCTS 04/29/2016 8 - GI Upset SQUASH 03/13/2018 8 - GI Upset SULFA DYNE 10/06/2011 10 - Anaphylaxis WALNUT 03/13/2018 8 - GI Upset Date Reviewed: 11/05/2024 Reviewed by: Staci Langley MA - Fully Assessed Reason for Visit: Hospital F/U [57] Primary Visit Diagnosis:Colitis [K52.9] Other Visit Diagnoses:Appendicolith [K38.9] Nausea [R11.0] Decreased appetite [R63.0] Diabetes mellitus type II (HCC) [E11.9] Primary hypertension [I10] Hyperlipidemia, unspecified hyperlipidemia type [E78.5] Class 1 obesity with serious comorbidity and body mass index (BMI) of 33.0 to 33.9 in adult, unspecified obesity type [E66.811, Z68.33] Order(s):COMPLETE BLOOD COUNT AND DIFFERENTIAL [SQCBCDIF] Order #: [id number] FUTURE COMPREHENSIVE METABOLIC PANEL [SQCMP] Order #: [id number] FUTURE HEMOGLOBIN A1C [GJMXH0H] Order #: [id number] FUTURE LIPID PANEL, NONFASTING [SQLIPNF] Order #: [id number] FUTURE ondansetron orally disintegrating (ZOFRAN ODT) 4 mg disintegrating tabletTake 1 tablet by mouth every 8 hours as needed for nausea/vomiting.Disp: 20 tabletRfl: 0 CONSULT TO GENERAL SURGERY [90] Order #: [id number]: 1 FUTURE Prescriptions as of 11/09/2024 - fluconazole (DIFLUCAN) 150 mg tablet - levoFLOXacin (LEVAQUIN) 750 mg tablet Take 750 mg by mouth once daily. - metroNIDAZOLE (FLAGYL) 500 mg tablet Take 500 mg by mouth. - ondansetron orally disintegrating (ZOFRAN ODT) 4 mg disintegrating tablet Take 1 tablet by mouth every 8 hours as needed for nausea/vomiting. - tirzepatide (MOUNJARO) 15 mg/0.5 mL pen injector Inject 15 mg subcutaneously one time a week. - meloxicam (MOBIC) 15 mg tablet Take 1 tablet by mouth once daily. - hydroCHLOROthiazide 12.5 mg tablet Take 1 tablet by mouth once daily. - losartan (COZAAR) 50 mg tablet Take two tablets daily - metFORMIN (GLUCOPHAGE) 500 mg tablet Take 1 tablet by mouth two times a day with meals. . - pantoprazole DR (PROTONIX) 40 mg tablet Take 1 tablet by mouth once daily. - simvastatin (ZOCOR) 10 mg tablet Take 1 tablet by mouth daily at bedtime. - glucosamine/msm/chondroit sulf (GLUCOSAMINE [id number] ORAL) - EPINEPHrine (EPIPEN) 0.3 mg/0.3 mL auto-injector 1 INJECTION NEEDED IN THIGH - Cholecalciferol, Vitamin D3, 25 mcg (1,000 [...] twice daily. Problem List As Of Date 11/05/2024 Noted Resolved Hypertension [I10] Hyperlipidemia [E78.5] GERD [...] breast reduction [Z98.890] 08/14/2022 Obesity [E66.9] 10/07/2023 Other instructions from your clinician: - Continue your prescribed antibiotics until finished: take levofloxacin once daily and metronidazole three times daily. Also take the fluconazole as directed to prevent a yeast infection. - Take ondansetron (Zofran) at home for nausea, especially in the evening when your antibiotics bother your stomach. - Maintain a bland, low-fiber diet for the next three weeks (for example: bananas, rice, applesauce, toast); avoid high-fiber foods such as broccoli and salad. - Complete blood tests before you leave today, including A1c, cholesterol panel, complete blood count with differential, and electrolytes. - Call to schedule a follow-up appointment with a general surgeon (Dr. Cao or Dr. Nelson) within the next couple of weeks to discuss possible appendix removal. - Return to this clinic in a few weeks to review your lab results and diabetes management in more detail. - If you develop new or worsening abdominal pain, persistent nausea or vomiting, blood in your stool, or fever, seek medical attention right away. Prescriptions ordered this encounter Disp Refills Start End ONDANSETRON 4 MG DISINTEGRATING TABL* 20 t* 0 11/05/2024 11/05/2024 Route: PO Sig: Take 1 tablet by mouth every 8 hours as needed for nausea/vomiting. ONDANSETRON 4 MG DISINTEGRATING TABL* 20 t* 0 11/05/2024 Route: PO Sig: Take 1 tablet by mouth every 8 hours as needed for nausea/vomiting. Medications Discontinued During This Encounter Prescriptions - Blood-Glucose Meter (CONTOUR NEXT ONE METER) (Discontinued) Check blood sugar twice daily and as needed - blood sugar diagnostic (CONTOUR NEXT TEST STRIPS) test strip (Discontinued) Check blood sugar twice a day and as needed - benzonatate (TESSALON PERLE) 100 mg capsule (Discontinued) Reported on 02/21/2024 - cyclobenzaprine (FLEXERIL) 10 mg tablet (Discontinued) Take 1 tablet by mouth three times a day as needed for muscle spasm. - cyclobenzaprine (FLEXERIL) 10 mg tablet (Discontinued) Take 1 tablet by mouth two times a day as needed for muscle spasm. - phenazopyridine (PYRIDIUM) 200 mg tablet (Discontinued) Take 1 tablet by mouth three times a day as needed. - meloxicam (MOBIC) 15 mg tablet (Discontinued) Take 1 tablet by mouth once daily. - ondansetron orally disintegrating (ZOFRAN ODT) 4 mg disintegrating tablet (Discontinued) Take 1 tablet by mouth every 8 hours as needed for nausea/vomiting. Disposition: Return in about 4 weeks (around 12/03/2024) for f/u DM. Follow-up and Disposition History for Encounter Date Provider Department Center 11/05/2024 [id number] [id number] [facility] Encounter Status:Closed by ANTONIO HUI on 11/05/24 PROGRESS Observed: 11/05/2024 2:08 PM Status: COMPLETED Source: [facility] HNO ID: [id number] Author: ANTONIO HUI MD Service: ? Author Type: Physician Type: Progress Notes Filed: 11/05/2024 14:35 Note Text: Chief Complaint Patient presents with: Hospital F/U Recording using [employer] software for draft documentation of the visit was discussed with the patient/authorized b2b outside sales representative; all questions welcomed and answered. Patient/authorized b2b outside sales representative agreed to proceed HPI Malik Neely is a 54 year old female who presents here today for Above Complaints. Abdominal Pain: - Malik Neely was hospitalizedn at [facility] from 10/28 to 11/02 for colitis and appendicolith. - Initial presentation included severe abdominal pain, nausea with vomiting, high lactic acid levels and CT abdomen/pelvis with possible appendicolith without appendicitis and subtle inflammatory changes in the distal transverse colon suggestive of mild colitis. - Treated with IV antibiotics (cefepime and Flagyl) and fluids; lactic acidosis improved. - Discharged on Levaquin and metronidazole for 8 days. Given rx for Diflucan in case of a yeast infection. - Malik is experiencing nausea, possibly from the antibiotics. - No current abdominal pain; Malik reports feeling bloated and full with decreased appetite. - No vaginal discharge or diarrhea; stools are loose but not watery. - Following a low-fiber diet as recommended. - No hematochezia or melena since discharge. - Blood glucose levels stable, averaging 88-95 mg/dL daily. Past medical history, appointments, medications, allergies reviewed. [...] Hypertension Father Coronary Artery Disease Father 59 MD in 2010- LDa Thyroid Sister Thyroid Sister Heart Maternal Grandmother Rheumatologic disease Paternal Grandmother arthritis Patient Allergies ALLERGIES Allergen Reactions Codeine Anaphylaxis Contrast Dye Anaphylaxis Shellfish Containin* GI Upset Squash GI Upset Sulfa Dyne Anaphylaxis Maypearl GI Upset Current Medications Current Outpatient Medications on File Prior to Visit Medication Sig fluconazole (DIFLUCAN) 150 mg tablet levoFLOXacin (LEVAQUIN) 750 mg tablet Take 750 mg by mouth once daily. metroNIDAZOLE (FLAGYL) 500 mg tablet Take 500 mg by mouth. tirzepatide (MOUNJARO) 15 mg/0.5 mL pen injector Inject 15 mg subcutaneously one time a week. meloxicam (MOBIC) 15 mg tablet Take 1 tablet by mouth once daily. hydroCHLOROthiazide 12.5 mg tablet Take 1 tablet by mouth once daily. losartan (COZAAR) 50 mg tablet Take two tablets daily metFORMIN (GLUCOPHAGE) 500 mg tablet Take 1 tablet by mouth two times a day with meals. . pantoprazole DR (PROTONIX) 40 mg tablet Take 1 tablet by mouth once daily. simvastatin (ZOCOR) 10 mg tablet Take 1 tablet by mouth daily at bedtime. glucosamine/msm/chondroit sulf (GLUCOSAMINE [id number] ORAL) EPINEPHrine (EPIPEN) 0.3 mg/0.3 mL auto-injector 1 INJECTION NEEDED IN THIGH Cholecalciferol, Vitamin D3, 25 mcg (1,000 unit) [...] on file prior to visit. Social History SOCIAL HISTORY[1] Review of Symptoms REVIEW OF SYSTEMS GENERAL: No weight loss, malaise or fevers RESPIRATORY: Negative for cough, hemoptysis, wheezing, COPD, dyspnea or shortness of breath CARDIOVASCULAR: Negative for chest pain, leg swelling, hypertension, CHF or palpitations GI: No nausea, vomiting, or diarrhea SKIN: Negative for lesions, rash, and itching EXAM: BP 121/85 Pulse 80 Temp 36.6 ?C (97.8 ?F) Ht 170.2 cm (5' 7) Wt 97.5 kg (215 lb) BMI 33.67 kg/m? General Appearance: Well appearing, alert, in no acute distress, well-hydrated, well nourished.. Skin: Skin color, texture, turgor normal, no suspicious rashes or lesions. Lungs: Lungs clear to auscultation. No wheezing, rhonchi, rales.. Heart: RRR without murmur, gallop, or rubs. No ectopy. Abdomen: Normal abdominal exam, Abdomen soft, non-tender. Bowel sounds normal. No masses, organomegaly. Health Maintenance List Depression Screening Never done Anxiety Screening Never done LDL Cholesterol due on 02/15/2024 HbA1C due on 04/08/2024 Mammogram Screening due on 09/11/2024 Diabetic Foot Exam due on 10/06/2024 Influenza Vaccine(1) due on 10/29/2024 Pneumococcal Vaccine: 50+(1 of 2 - PCV) due on 04/30/2025 Urine Albumin:Creatinine Ratio due on 04/30/2025 Dilated Retinal Exam due on 05/25/2025 Annual PCP Team Chronic Disease Visit due on 11/05/2025 Colorectal Cancer Screening due on 09/23/2031 DTaP,Tdap,Td Vaccine(3 - Td or Tdap) due on 09/05/2032 Hepatitis B Vaccine Completed Shingrix Vaccine Completed Cervical Cancer Screening Discontinued Hepatitis C Screening Discontinued HIV Screening Discontinued Data reviewed [facility] records from 10/28-11/02 1. Colitis (K52.9) 2. Appendicolith (K38.9) 3. Nausea (R11.0) 4. Decreased appetite (R63.0) - Recent hospitalization (10/28-11/02) for severe abdominal pain; CT imaging revealed appendicolith and colitis. - Treated with IV fluids, cefepime, and Flagyl; transitioned to oral Levaquin and metronidazole at discharge. - Lactic acidosis improved with treatment; abdominal pain resolved, currently 0/10; no fevers, hematochezia, or melena since discharge. - Nausea likely secondary to antibiotics; prescribed Zofran for symptomatic relief. - Advised to continue current antibiotics as prescribed; instructed to return to ED if symptoms worsen (abdominal pain, nausea, vomiting, hematochezia). - Encouraged continuation of low-fiber diet as recommended. - Referred to general surgery for evaluation of possible appendectomy; instructed to schedule follow-up with Dr. Cao or Dr. Nelson. 5. Diabetes mellitus type II (HCC) (E11.9) - Blood glucose readings stable (88-95 mg/dL); one elevated reading (173 mg/dL) during hospitalization attributed to dietary intake. - Order HbA1c. - Follow-up in a few weeks to review labs and discuss diabetes management in more detail. 6. Primary hypertension (I10) - BP controlled on current regimen. 7. Hyperlipidemia, unspecified hyperlipidemia type (E78.5) - Order lipid panel. Continue current regimen. Will discuss at f/u in 1 month. 8. Class 1 obesity with serious comorbidity and body mass index (BMI) of 33.0 to 33.9 in adult, unspecified obesity type (E66.811) - Stable. Will discuss further at f/u in 1 month. Antonio Hui MD [1] Social History Tobacco Use Smoking status: Former Current packs/day: 0.00 Average packs/day: 0.5 packs/day for 10.0 years (5.0 ttl pk-yrs) Types: Cigarettes Start date: 04/29/2001 Quit date: 04/30/2011 Years since quittin.5 Smokeless tobacco: Never Vaping Use Vaping status: Never Used Substance Use Topics Alcohol use: Not Currently Alcohol/week: 6.0 standard drinks of alcohol Types: 6 Glasses of wine per week Drug use: No CNPTOUTREACH Observed: 10/16/2024 12:00 AM Status: COMPLETED Source: [facility] Patient Outreach (FAMPWS) MALIK NEELY ([id number]) 1970 F Date Time Provider Department 10/16/24 ANTONIO HUI During your visit today, we recorded the following information about you: Allergies As of Date: 10/16/2024 Noted Allergy Reaction CODEINE 10/06/2011 10 - Anaphylaxis CONTRAST DYE 10/06/2011 10 - Anaphylaxis SHELLFISH CONTAINING PRODUCTS 04/29/2016 8 - GI Upset SQUASH 03/13/2018 8 - GI Upset SULFA DYNE 10/06/2011 10 - Anaphylaxis WALNUT 03/13/2018 8 - GI Upset Date Reviewed: 10/03/2024 Reviewed by: Alison Epps MA - Fully Assessed Visit Diagnosis:Encounter for screening mammogram for breast cancer [Z12.31] Order(s):CHATO SCREENING W JAYMIE [[id number]] Order #: [id number] FUTURE Prescriptions as of 11/16/2024 - ondansetron orally disintegrating (ZOFRAN ODT) 4 mg disintegrating tablet Take 1 tablet by mouth every 8 hours as needed for nausea/vomiting. - tirzepatide (MOUNJARO) 15 mg/0.5 mL pen injector Inject 15 mg subcutaneously one time a week. - meloxicam (MOBIC) 15 mg tablet Take 1 tablet by mouth once daily. - hydroCHLOROthiazide 12.5 mg tablet Take 1 tablet by mouth once daily. - losartan (COZAAR) 50 mg tablet Take two tablets daily - metFORMIN (GLUCOPHAGE) 500 mg tablet Take 1 tablet by mouth two times a day with meals. . - pantoprazole DR (PROTONIX) 40 mg tablet Take 1 tablet by mouth once daily. - simvastatin (ZOCOR) 10 mg tablet Take 1 tablet by mouth daily at bedtime. - glucosamine/msm/chondroit sulf (GLUCOSAMINE [id number] ORAL) - EPINEPHrine (EPIPEN) 0.3 mg/0.3 mL auto-injector 1 INJECTION NEEDED IN THIGH - Cholecalciferol, Vitamin D3, 25 mcg (1,000 unit) cap Take by mouth. - turmeric 400 mg cap Take 1 capsule by mouth once daily. - venlafaxine ER (EFFEXOR XR) 75 mg 24 hr capsule Take 1 capsule by mouth once daily. - peg 3350-Electrolytes (GOLYTELY) 236-22.74-6.74 -5.86 gram suspension Refer to printed prep instructions from your provider. - fluconazole (DIFLUCAN) 150 mg tablet - levoFLOXacin (LEVAQUIN) 750 mg tablet Take 750 mg by mouth once daily. - metroNIDAZOLE (FLAGYL) 500 mg tablet Take 500 mg by mouth. - tirzepatide (MOUNJARO) 15 mg/0.5 mL pen injector Inject 15 mg subcutaneously one time a week. - hydroCHLOROthiazide 12.5 mg tablet Take 1 tablet by mouth once daily. - losartan (COZAAR) 50 mg tablet Take two tablets daily - metFORMIN (GLUCOPHAGE) 500 mg tablet Take 1 tablet by mouth two times a day with meals. . - pantoprazole DR (PROTONIX) 40 mg tablet Take 1 tablet by mouth once daily. - simvastatin (ZOCOR) 10 mg tablet Take 1 tablet by mouth daily at bedtime. - glucosamine/msm/chondroit sulf (GLUCOSAMINE [id number]-[id number] ORAL) - turmeric 400 mg cap Take 1 [...] twice daily. Problem List As Of Date 10/16/2024 Noted Resolved Hypertension [I10] Hyperlipidemia [E78.5] GERD [...] 08/14/2022 Obesity [E66.9] 10/07/2023 Encounter Status:Closed by AARON PRODUSER on 11/16/24 PROGRESS Observed: 10/03/2024 9:30 AM Status: COMPLETED Source: [facility] HNO ID: [id number] Author: LÓPEZ DEAN MD, PhD Service: ? Author Type: Physician Type: Progress Notes Filed: 10/03/2024 09:44 Note Text: NEUROSURGERY FOLLOW UP OFFICE NOTE López Dean MD, PhD Date of visit: October 03, 2024 Patient Name: Ms.Robin Elan Neely Date of : 1970 Current Age: [age] year old Sex: female MRN/E# [id number] Last Office Visit: 09/05/2024 Chief Complaint: Patient [...] who is referred by Dr. Walters from [facility] for neurosurgical evaluation. Malik Neely is a 54-year-old female presented on 09/05/2024 as a new patient for evaluation of worsening neck pain and left arm numbness and tingling. Malik reported a 30-year history of neck pain [...] or loss of bowel or bladder control. Malik had not pursued conservative treatments for her neck pain. Malik was evaluated by Dr. Alberto at [facility], who referred her to neurosurgery. She was currently taking Mobic for a left hip problem, which affects her gait. 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 Malik has a history of type 2 diabetes, [...] disease), cervical DDD (degenerative disc disease), lumbar [facility]Dr Castillo Diabetes mellitus type II (HCC) [...] SCOPE, PLANTAR FASCIOTOMY Right 2014 FAMILY HISTORY Problem Relation Age of Onset Hypertension Mother Heart Failure Mother 64 Heart Mother stents Hypertension Father Coronary Artery Disease Father 59 MD in 2010- LDa Thyroid Sister Thyroid Sister Heart Maternal Grandmother Rheumatologic disease Paternal Grandmother arthritis ALLERGIES Allergen Reactions Codeine Anaphylaxis Contrast Dye Anaphylaxis Shellfish Containin* GI Upset Squash GI Upset Sulfa Dyne Anaphylaxis Maypearl GI Upset Current Outpatient Medications Medication Sig [...] mouth daily at bedtime. 90 tablet 1 glucosamine/msm/chondroit sulf (GLUCOSAMINE [id number] ORAL) EPINEPHrine (EPIPEN) 0.3 mg/0.3 mL auto-injector 1 INJECTION NEEDED IN THIGH 2 Each 1 Cholecalciferol, Vitamin D3, 25 mcg (1,000 [...] D ORAL) Take by mouth twice daily. meloxicam (MOBIC) 15 mg tablet Take 1 tablet by mouth once daily. 90 tablet 0 phenazopyridine (PYRIDIUM) 200 mg tablet Take 1 tablet by mouth three times a day as needed. 12 tablet 0 cyclobenzaprine (FLEXERIL) 10 mg tablet Take 1 tablet by mouth two times a day as needed for muscle spasm. 30 tablet 0 cyclobenzaprine (FLEXERIL) 10 mg tablet Take 1 tablet by mouth three times a day as needed for muscle spasm. 10 tablet 0 benzonatate (TESSALON PERLE) 100 mg capsule Take 1 capsule by mouth three times a day as needed for cough. (Patient not taking: Reported on 02/21/2024) 21 capsule 0 Blood-Glucose Meter (CONTOUR NEXT ONE METER) Check blood sugar twice daily and as needed 1 Each 0 blood sugar diagnostic (CONTOUR NEXT TEST STRIPS) test strip Check blood sugar twice a day and as needed 100 Strip 1 No current facility-administered medications for this visit. REVIEW OF SYSTEMS Review of Systems Constitutional: Negative for chills, fatigue and fever. HENT: Negative for ear pain, hearing loss, postnasal drip, sore throat, tinnitus, trouble swallowing and voice change. Eyes: Negative for photophobia and visual disturbance. Respiratory: Negative for cough, choking and shortness of breath. Cardiovascular: Negative for chest pain, palpitations and leg swelling. Gastrointestinal: Negative for constipation, diarrhea, nausea and vomiting. Endocrine: Negative for cold intolerance and heat intolerance. Genitourinary: Negative for decreased urine volume, difficulty urinating, dysuria, frequency, hematuria and urgency. Musculoskeletal: Positive for neck pain. Negative for arthralgias, back pain, gait problem, myalgias and neck stiffness. Skin: Negative for rash and wound. Allergic/Immunologic: Negative for immunocompromised state. Neurological: Positive for numbness. Negative for dizziness, tremors, seizures, syncope, facial asymmetry, speech difficulty, weakness, light-headedness and headaches. Psychiatric/Behavioral: Negative for agitation, behavioral problems and confusion. The patient is not nervous/anxious. Neck: (+) neck pain Gastrointestinal: (-) bowel incontinence Genitourinary: (-) urinary incontinence Musculoskeletal: (+) left shoulder pain, (+) left scapular pain Neurological: (+) left hand numbness, (+) left hand tingling, (+) unsteadiness, (-) shooting pain down left hand OBJECTIVE: BP 137/90 Pulse 80 Resp 16 Wt 217 lb 2.5 oz (98.5kg) SpO2 95% Physical Exam - Neurological: - Strength: - Arms: - Triceps: Left: 5/5, Right: 5/5; Strength normal in all upper extremity myotomes bilaterally - Sensation: Intact except in left middle finger as before. - Coordination: No dysmetria. - Gait: No ataxia. Data Review IMAGING STUDIES: XR Cervical Spine 10/03/2024: in process Assessment: Malik Neely is a 54-year-old female presenting for a one-month follow-up for worsening neck pain and left arm numbness and tingling. Malik reports worsening neck pain and left arm numbness and tingling since her last visit on September 05. She believes her symptoms may be related to work stress. The pain radiates to her left shoulder, left shoulder blade, and the last three digits of her left hand. She continues to experience occasional unsteadiness but does not report any falls or loss of bowel or bladder control. She has not yet participated in physical therapy as previously recommended. She is currently taking Mobic for hip issues, which she notes is not helping with her neck pain. She rates her pain as 4 out of 10 today, noting that it worsens in the evening, particularly after work. 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 She does not report any shooting pain down her left hand, only numbness. She mentions that her left hand sometimes wakes up during the night completely asleep. She uses a support pillow and a recliner with head support to alleviate discomfort while sleeping. Past Diagnostic Results: Imaging - Cervical Spine X-rays: Arthritic changes at C5-C6 with angulation; disc fragment at C6-C7. My Interpretation of Imaging: - Cervical spine imaging: Degenerative changes identified at the C5-6 disc level with an angulation of the cervical spine. A small disc fragment at C6-7 is contacting the nerve root, causing primarily sensory symptoms consistent with mild radiculopathy. Plan: 1. DDD (degenerative disc disease), cervical (M50.30) 2. Cervical disc disorder with radiculopathy of cervical region (M50.10) 3. Neck pain (M54.2) - Chronic cervical DDD with C7 radiculopathy; symptoms include neck pain radiating to left shoulder and scapula, and numbness in the last three digits of the left hand. - Imaging reviewed; most significant degenerative changes at C5-6, with suspected disc fragment at C6-7 causing radiculopathy. - Surgical candidate, but surgery discouraged unless symptoms worsen significantly; discussed potential need for two-level surgery if pursued. - Advised conservative management; continue current pain management with Tylenol or ibuprofen for neck pain. - Advised to follow up sooner if symptoms worsen. - Follow-up in 3 months. - Take [id number] pain relievers such as Tylenol or ibuprofen as needed to help your neck discomfort. - Continue using your support pillow and recliner?s headrest to ease end-of-day pain. - Keep coping with your current routine; avoid scheduling surgery unless your pain becomes constant and severe. - If your neck or arm symptoms worsen before your next visit, contact the office sooner for advice. - Schedule a follow-up appointment in three months to reassess your symptoms and review any new imaging or treatments. Attestation: The following portions of the patient's history were reviewed, confirmed, and updated as necessary: allergies, current medications, past family history, past medical history, past social history, past surgical history, problem list, HPI, and ROS obtained by others. Some elements may be copied from a previous office note and have been reviewed/updated where appropriate. All portions reflect current medical decision making from today. The clinical and radiographic findings as well as the risks, benefits and alternatives of treatment have been reviewed in detail with the patient. The patient was advised to call the office if symptoms worsen or new symptoms develop. The patient expressed understanding and is in agreement with plan. López Dean MD, PhD This note was partially generated using Letsgofordinner voice recognition system, and there may be some incorrect words, spellings, and punctuation that were not noted in checking the note before saving. RAINE Observed: 10/03/2024 9:30 AM Status: COMPLETED Source: [facility] Office Visit ([facility]) MALIK NEELY ([id number]) 1970 F Date Time Provider Department 10/03/24 9:30 AM LÓPEZ DEAN [facility] During your visit today, we recorded the following information about you: Pulse Respiration Blood pressure Weight 80/minute 16/minute 142/91 98.5 kg López Dean MD, PhD 10/03/2024 9:44 AM Signed NEUROSURGERY FOLLOW UP OFFICE NOTE López Dean MD, PhD Date of visit: October 03, 2024 Patient Name: Ms.Robin Elan Neely Date of : 1970 Current Age: [age] year old Sex: female MRN/E# [id number] Last Office Visit: 09/05/2024 Chief Complaint: Patient [...] who is referred by Dr. Walters from [facility] for neurosurgical evaluation. Malik Neely is a 54-year-old female presented on 09/05/2024 as a new patient for evaluation of worsening neck pain and left arm numbness and tingling. Malik reported a 30-year history of neck pain [...] or loss of bowel or bladder control. Malik had not pursued conservative treatments for her neck pain. Malik was evaluated by Dr. Alberto at [facility], who referred her to neurosurgery. She was currently taking Mobic for a left hip problem, which affects her gait. 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 Malik has a history of type 2 diabetes, [...] Hypertension Father Coronary Artery Disease Father 59 MD in 2010- LDa Thyroid Sister Thyroid Sister Heart Maternal Grandmother Rheumatologic disease Paternal Grandmother arthritis ALLERGIES Allergen Reactions Codeine Anaphylaxis Contrast Dye Anaphylaxis Shellfish Containin* GI Upset Squash GI Upset Sulfa Dyne Anaphylaxis Maypearl GI Upset Current Outpatient Medications Medication Sig [...] mouth daily at bedtime. 90 tablet 1 glucosamine/msm/chondroit sulf (GLUCOSAMINE [id number] ORAL) EPINEPHrine (EPIPEN) 0.3 mg/0.3 mL auto-injector 1 INJECTION NEEDED IN THIGH 2 Each 1 Cholecalciferol, Vitamin D3, 25 mcg (1,000 [...] D ORAL) Take by mouth twice daily. meloxicam (MOBIC) 15 mg tablet Take 1 tablet by mouth once daily. 90 tablet 0 phenazopyridine (PYRIDIUM) 200 mg tablet Take 1 tablet by mouth three times a day as needed. 12 tablet 0 cyclobenzaprine (FLEXERIL) 10 mg tablet Take 1 tablet by mouth two times a day as needed for muscle spasm. 30 tablet 0 cyclobenzaprine (FLEXERIL) 10 mg tablet Take 1 tablet by mouth three times a day as needed for muscle spasm. 10 tablet 0 benzonatate (TESSALON PERLE) 100 mg capsule Take 1 capsule by mouth three times a day as needed for cough. (Patient not taking: Reported on 02/21/2024) 21 capsule 0 Blood-Glucose Meter (CONTOUR NEXT ONE METER) Check blood sugar twice daily and as needed 1 Each 0 blood sugar diagnostic (CONTOUR NEXT TEST STRIPS) test strip Check blood sugar twice a day and as needed 100 Strip 1 No current facility-administered medications for this visit. REVIEW OF SYSTEMS Review of Systems Constitutional: Negative for chills, fatigue and fever. HENT: Negative for ear pain, hearing loss, postnasal drip, sore throat, tinnitus, trouble swallowing and voice change. Eyes: Negative for photophobia and visual disturbance. Respiratory: Negative for cough, choking and shortness of breath. Cardiovascular: Negative for chest pain, palpitations and leg swelling. Gastrointestinal: Negative for constipation, diarrhea, nausea and vomiting. Endocrine: Negative for cold intolerance and heat intolerance. Genitourinary: Negative for decreased urine volume, difficulty urinating, dysuria, frequency, hematuria and urgency. Musculoskeletal: Positive for neck pain. Negative for arthralgias, back pain, gait problem, myalgias and neck stiffness. Skin: Negative for rash and wound. Allergic/Immunologic: Negative for immunocompromised state. Neurological: Positive for numbness. Negative for dizziness, tremors, seizures, syncope, facial asymmetry, speech difficulty, weakness, light-headedness and headaches. Psychiatric/Behavioral: Negative for agitation, behavioral problems and confusion. The patient is not nervous/anxious. Neck: (+) neck pain Gastrointestinal: (-) bowel incontinence Genitourinary: (-) urinary incontinence Musculoskeletal: (+) left shoulder pain, (+) left scapular pain Neurological: (+) left hand numbness, (+) left hand tingling, (+) unsteadiness, (-) shooting pain down left hand OBJECTIVE: BP 137/90 Pulse 80 Resp 16 Wt 217 lb 2.5 oz (98.5kg) SpO2 95% Physical Exam - Neurological: - Strength: - Arms: - Triceps: Left: 5/5, Right: 5/5; Strength normal in all upper extremity myotomes bilaterally - Sensation: Intact except in left middle finger as before. - Coordination: No dysmetria. - Gait: No ataxia. Data Review IMAGING STUDIES: XR Cervical Spine 10/03/2024: in process Assessment: Malik Neely is a 54-year-old female presenting for a one-month follow-up for worsening neck pain and left arm numbness and tingling. Malik reports worsening neck pain and left arm numbness and tingling since her last visit on September 05. She believes her symptoms may be related to work stress. The pain radiates to her left shoulder, left shoulder blade, and the last three digits of her left hand. She continues to experience occasional unsteadiness but does not report any falls or loss of bowel or bladder control. She has not yet participated in physical therapy as previously recommended. She is currently taking Mobic for hip issues, which she notes is not helping with her neck pain. She rates her pain as 4 out of 10 today, noting that it worsens in the evening, particularly after work. 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 She does not report any shooting pain down her left hand, only numbness. She mentions that her left hand sometimes wakes up during the night completely asleep. She uses a support pillow and a recliner with head support to alleviate discomfort while sleeping. Past Diagnostic Results: Imaging - Cervical Spine X-rays: Arthritic changes at C5-C6 with angulation; disc fragment at C6-C7. My Interpretation of Imaging: - Cervical spine imaging: Degenerative changes identified at the C5-6 disc level with an angulation of the cervical spine. A small disc fragment at C6-7 is contacting the nerve root, causing primarily sensory symptoms consistent with mild radiculopathy. Plan: 1. DDD (degenerative disc disease), cervical (M50.30) 2. Cervical disc disorder with radiculopathy of cervical region (M50.10) 3. Neck pain (M54.2) - Chronic cervical DDD with C7 radiculopathy; symptoms include neck pain radiating to left shoulder and scapula, and numbness in the last three digits of the left hand. - Imaging reviewed; most significant degenerative changes at C5-6, with suspected disc fragment at C6-7 causing radiculopathy. - Surgical candidate, but surgery discouraged unless symptoms worsen significantly; discussed potential need for two-level surgery if pursued. - Advised conservative management; continue current pain management with Tylenol or ibuprofen for neck pain. - Advised to follow up sooner if symptoms worsen. - Follow-up in 3 months. - Take ixsj-ity-ciyaisy pain relievers such as Tylenol or ibuprofen as needed to help your neck discomfort. - Continue using your support pillow and recliner?s headrest to ease end-of-day pain. - Keep coping with your current routine; avoid scheduling surgery unless your pain becomes constant and severe. - If your neck or arm symptoms worsen before your next visit, contact the office sooner for advice. - Schedule a follow-up appointment in three months to reassess your symptoms and review any new imaging or treatments. Attestation: The following portions of the patient's history were reviewed, confirmed, and updated as necessary: allergies, current medications, past family history, past medical history, past social history, past surgical history, problem list, HPI, and ROS obtained by others. Some elements may be copied from a previous office note and have been reviewed/updated where appropriate. All portions reflect current medical decision making from today. The clinical and radiographic findings as well as the risks, benefits and alternatives of treatment have been reviewed in detail with the patient. The patient was advised to call the office if symptoms worsen or new symptoms develop. The patient expressed understanding and is in agreement with plan. López Dean MD, PhD This note was partially generated using Letsgofordinner voice recognition system, and there may be some incorrect words, spellings, and punctuation that were not noted in checking the note before saving. Referring Provider: LÓPEZ DEAN [[id number]] Allergies As of Date: 10/03/2024 Noted Allergy Reaction CODEINE 10/06/2011 10 - Anaphylaxis CONTRAST DYE 10/06/2011 10 - Anaphylaxis SHELLFISH CONTAINING PRODUCTS 04/29/2016 8 - GI Upset SQUASH 03/13/2018 8 - GI Upset SULFA DYNE 10/06/2011 10 - Anaphylaxis WALNUT 03/13/2018 8 - GI Upset Date Reviewed: 10/03/2024 Reviewed by: Alison Epps MA - Fully Assessed Reason for Visit: Established Patient [175] Primary Visit Diagnosis:DDD (degenerative disc disease), cervical [M50.30] Other Visit Diagnoses:Cervical disc disorder with radiculopathy of cervical region [M50.10] Neck pain [M54.2] Order(s):XR CERV OTHER 4V AP/LAT/FLX/EXT [[id number]] Order #: [id number] FUTURE Prescriptions as of 10/03/2024 - tirzepatide (MOUNJARO) 15 mg/0.5 mL pen injector Inject 15 mg subcutaneously one time a week. - meloxicam (MOBIC) 15 mg tablet Take 1 tablet by mouth once daily. - meloxicam (MOBIC) 15 mg tablet Take 1 tablet by mouth once daily. - hydroCHLOROthiazide 12.5 mg tablet Take 1 tablet by mouth once daily. - losartan (COZAAR) 50 mg tablet Take two tablets daily - metFORMIN (GLUCOPHAGE) 500 mg tablet Take 1 tablet by mouth two times a day with meals. . - pantoprazole DR (PROTONIX) 40 mg tablet Take 1 tablet by mouth once daily. - simvastatin (ZOCOR) 10 mg tablet Take 1 tablet by mouth daily at bedtime. - phenazopyridine (PYRIDIUM) 200 mg tablet Take 1 tablet by mouth three times a day as needed. - cyclobenzaprine (FLEXERIL) 10 mg tablet Take 1 tablet by mouth two times a day as needed for muscle spasm. - glucosamine/msm/chondroit sulf (GLUCOSAMINE [id number] ORAL) - cyclobenzaprine (FLEXERIL) 10 mg tablet Take 1 tablet by mouth three times a day as needed for muscle spasm. - benzonatate (TESSALON PERLE) 100 mg capsule Take 1 capsule by mouth three times a day as needed for cough. - EPINEPHrine (EPIPEN) 0.3 mg/0.3 mL auto-injector 1 INJECTION NEEDED IN THIGH - Blood-Glucose Meter (CONTOUR NEXT ONE METER) [...] twice daily. Problem List As Of Date 10/03/2024 Noted Resolved Hypertension [I10] Hyperlipidemia [E78.5] GERD [...] breast reduction [Z98.890] 08/14/2022 Obesity [E66.9] 10/07/2023 Disposition: Return in about 3 months (around 01/03/2025). Follow-up and Disposition History for Encounter Date Provider Department Center 10/03/2024 [id number], [facility] [place] Encounter Status:Closed by LÓPEZ DEAN on 10/03/24 XR CERVICAL 4V AP/LAT/FLX/EXT Observed: 10/03/2024 9:00 AM Status: F Source: [facility] * * *Final Report* * * DATE [...] DISEASE AT C5/C6. MULTILEVEL FACET DEGENERATIVE CHANGES. 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 RADIOLOGY DEPARTMENT: General X-ray: Exam(s) Completed: Spine X-Ray(s): Cervical AP / LAT / FLEX-EXT PERIPHERAL IV DATA: Not applicable SIGNED BY: RT Bull(R) October 03, 2024 9:01 AM CNOV Observed: 09/05/2024 9:00 AM Status: COMPLETED Source: [facility] Office Visit (NEAG[facility]M) MALIK NEELY ([id number]) 1970 F Date Time Provider Department 09/05/24 9:00 AM LÓPEZ DEAN [facility] During your visit today, we recorded the following information about you: Pulse Respiration Blood pressure Weight 88/minute 16/minute 135/87 97.9 kg López Dean MD, PhD 09/05/2024 9:23 AM Signed NEUROSURGERY CONSULT NOTE López Dean MD, PhD Date of visit: September 05, 2024 Patient Name: Ms.Robin Elan Neely Date of : 1970 Current Age: [age] year old Sex: female MRN/E# [id number] Chief Complaint: No chief complaint on file. [...] who is referred by Dr. Walters from [facility] for neurosurgical evaluation. Malik Neely is a 54-year-old female presenting for evaluation of worsening neck pain and left arm numbness and tingling. Malik reports a 30-year history of neck pain [...] or loss of bowel or bladder control. Malik has not pursued conservative treatments for her neck pain. Malik was evaluated by Dr. Alberto at [facility], who referred her to neurosurgery. She is currently taking Mobic for a left hip problem, which affects her gait. 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 Malik has a history of type 2 diabetes, [...] tear of left knee 2014 s/p repair Arthritis of left shoulder region [...] Hypertension Father Coronary Artery Disease Father 59 MD in 2010- LDa Thyroid Sister Thyroid Sister Heart Maternal Grandmother Rheumatologic disease Paternal Grandmother arthritis ALLERGIES Allergen Reactions Codeine Anaphylaxis Contrast Dye Anaphylaxis Shellfish Containin* GI Upset Squash GI Upset Sulfa Dyne Anaphylaxis [facility] Upset Current Outpatient Medications Medication Sig [...] as needed for muscle spasm. 30 tablet 0 glucosamine/msm/chondroit sulf (GLUCOSAMINE [id number]-VKOOINTPE ORAL) cyclobenzaprine (FLEXERIL) 10 mg tablet Take 1 tablet by mouth three times a day as needed for muscle spasm. 10 tablet 0 benzonatate (TESSALON PERLE) 100 mg capsule Take 1 capsule by mouth three times a day as needed for cough. 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 REVIEW OF SYSTEMS Review of Systems Neck: [...] oz (97.9 kg) SpO2 98% BMI 33.80 kg/m? General Exam Neurological Exam Mental Status Today Malik appeared well. She had a positive Spurling sign on the left but not right. Motor Examination and Coordination Neuromuscular Examination Extremity Muscles Upper Extremity Right Left Shoulder abduction 5 5 Elbow flexion 5 5 Elbow extension 5 5 Wrist flexion 5 5 Wrist extension 5 5 Finger flexion/mental health unit lead psychologist 5 5 Reflexes Deep tendon reflexes graded by MRC Deep Tendon Reflexes Right Left Biceps 2+ 2+ Triceps 2+ 2+ Brachioradialis 2+ 2+ Patellar 2+ 2+ Achilles 2+ 2+ Malik did not exhibit upper motor neuron findings including a Manuelito sign or ankle clonus. General: No acute distress. MSK/Ext: Limited cervical range of motion; left arm weakness; left hand weakness; left arm hyperreflexia; positive Blank's sign on left side; decreased sensation in left thumb and fifth finger; normal sensation in left middle finger. Malik's neurologic exam is consistent with a left [...] but numbness in the left arm and fingers; consistent with sensory only left C7 radiculopathy - [...] will have cervical spine x-rays (lateral and flexion-extension views) and we?ll review your MRI together. - Monitor your neck and left arm symptoms closely. If you develop new shooting pain, increased weakness, or any other concerning changes, call our office to be seen sooner. - If you?d like, you may start physical therapy for your neck now--it can help with insurance approval--but you can also hold off and begin it later if symptoms worsen. Attestation: The following portions of the patient's history were reviewed, confirmed, and updated as necessary: allergies, current medications, past family history, past medical history, past social history, past surgical history, problem list, HPI, and ROS obtained by others. Some elements may be copied from a previous office note and have been reviewed/updated where appropriate. All portions reflect current medical decision making from today. The clinical and radiographic findings as well as the risks, benefits and alternatives of treatment have been reviewed in detail with the patient. The patient was advised to call the office if symptoms worsen or new symptoms develop. The patient expressed understanding and is in agreement with plan. López Dean MD, PhD This note was partially generated using Letsgofordinner voice recognition system, and there may be some incorrect words, spellings, and punctuation that were not noted in checking the note before saving. Allergies As of Date: 09/05/2024 Noted Allergy Reaction CODEINE 10/06/2011 10 - Anaphylaxis CONTRAST DYE 10/06/2011 10 - Anaphylaxis SHELLFISH CONTAINING PRODUCTS 04/29/2016 8 - GI Upset SQUASH 03/13/2018 8 - GI Upset SULFA DYNE 10/06/2011 10 - Anaphylaxis WALNUT 03/13/2018 8 - GI Upset Date Reviewed: 09/05/2024 Reviewed by: Alison Epps MA - Fully Assessed Reason for Visit: New Patient [172] Primary Visit Diagnosis:Cervical disc disorder at C6-C7 level with radiculopathy [M50.123] Other Visit Diagnoses:DDD (degenerative disc disease), cervical [M50.30] Diabetes mellitus type II (HCC) [E11.9] S/P bilateral breast reduction [Z98.890] Order(s):XR CERVICAL 2V FLEX/EXT [[id number]] Order #: [id number] FUTURE Prescriptions as of 09/05/2024 - tirzepatide (MOUNJARO) 15 mg/0.5 mL pen injector Inject 15 mg subcutaneously one time a week. - meloxicam (MOBIC) 15 mg tablet Take 1 tablet by mouth once daily. - meloxicam (MOBIC) 15 mg tablet Take 1 tablet by mouth once daily. - hydroCHLOROthiazide 12.5 mg tablet Take 1 tablet by mouth once daily. - losartan (COZAAR) 50 mg tablet Take two tablets daily - metFORMIN (GLUCOPHAGE) 500 mg tablet Take 1 tablet by mouth two times a day with meals. . - pantoprazole DR (PROTONIX) 40 mg tablet Take 1 tablet by mouth once daily. - simvastatin (ZOCOR) 10 mg tablet Take 1 tablet by mouth daily at bedtime. - phenazopyridine (PYRIDIUM) 200 mg tablet Take 1 tablet by mouth three times a day as needed. - cyclobenzaprine (FLEXERIL) 10 mg tablet Take 1 tablet by mouth two times a day as needed for muscle spasm. - glucosamine/msm/chondroit sulf (GLUCOSAMINE 9NAE-IMR-RCORGWKCL ORAL) - cyclobenzaprine (FLEXERIL) 10 mg tablet Take 1 tablet by mouth three times a day as needed for muscle spasm. - benzonatate (TESSALON PERLE) 100 mg capsule Take 1 capsule by mouth three times a day as needed for cough. - EPINEPHrine (EPIPEN) 0.3 mg/0.3 mL auto-injector 1 INJECTION NEEDED IN THIGH - Blood-Glucose Meter (CONTOUR NEXT ONE METER) [...] twice daily. Problem List As Of Date 09/05/2024 Noted Resolved Hypertension [I10] Hyperlipidemia [E78.5] GERD [...] breast reduction [Z98.890] 08/14/2022 Obesity [E66.9] 10/07/2023 Disposition: Return in about 1 month (around 10/06/2024) for follow up with xrays. Follow-up and Disposition History for Encounter Date Provider Department Center 09/05/2024 [id number] DEAN Encounter Status:Closed by LÓPEZ DEAN on 09/05/24 PROGRESS Observed: 09/05/2024 9:00 AM Status: COMPLETED Source: [facility] HNO ID: [id number] Author: LÓPEZ DEAN MD, PhD Service: ? Author Type: Physician Type: Progress Notes Filed: 09/05/2024 09:23 Note Text: NEUROSURGERY CONSULT NOTE López Dean MD, PhD Date of visit: September 05, 2024 Patient Name: Ms.Robin Elan Neely Date of : 1970 Current Age: [age] year old Sex: female MRN/E# [id number] Chief Complaint: No chief complaint on file. [...] who is referred by Dr. Walters from [facility] for neurosurgical evaluation. Malik Neely is a 54-year-old female presenting for evaluation of worsening neck pain and left arm numbness and tingling. Malik reports a 30-year history of neck pain [...] or loss of bowel or bladder control. Malik has not pursued conservative treatments for her neck pain. Malik was evaluated by Dr. Alberto at [facility], who referred her to neurosurgery. She is currently taking Mobic for a left hip problem, which affects her gait. 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 Malik has a history of type 2 diabetes, [...] disease), cervical DDD (degenerative disc disease), lumbar [facility] Diabetes mellitus type II (HCC) [...] Hypertension Father Coronary Artery Disease Father 59 MD in 2010- LDa Thyroid Sister Thyroid Sister Heart Maternal Grandmother Rheumatologic disease Paternal Grandmother arthritis ALLERGIES Allergen Reactions Codeine Anaphylaxis Contrast Dye Anaphylaxis Shellfish Containin* GI Upset Squash GI Upset Sulfa Dyne Anaphylaxis [facility] Upset Current Outpatient Medications Medication Sig [...] as needed for muscle spasm. 30 tablet 0 glucosamine/msm/chondroit sulf (GLUCOSAMINE 3NUC-OXD-RECZAIXFU ORAL) cyclobenzaprine (FLEXERIL) 10 mg tablet Take 1 tablet by mouth three times a day as needed for muscle spasm. 10 tablet 0 benzonatate (TESSALON PERLE) 100 mg capsule Take 1 capsule by mouth three times a day as needed for cough. 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 REVIEW OF SYSTEMS Review of Systems Neck: [...] oz (97.9 kg) SpO2 98% BMI 33.80 kg/m? General Exam Neurological Exam Mental Status Today Malik appeared well. She had a positive Spurling sign on the left but not right. Motor Examination and Coordination Neuromuscular Examination Extremity Muscles Upper Extremity Right Left Shoulder abduction 5 5 Elbow flexion 5 5 Elbow extension 5 5 Wrist flexion 5 5 Wrist extension 5 5 Finger flexion/mental health unit lead psychologist 5 5 Reflexes Deep tendon reflexes graded by MRC Deep Tendon Reflexes Right Left Biceps 2+ 2+ Triceps 2+ 2+ Brachioradialis 2+ 2+ Patellar 2+ 2+ Achilles 2+ 2+ Malik did not exhibit upper motor neuron findings including a Manuelito sign or ankle clonus. General: No acute distress. MSK/Ext: Limited cervical range of motion; left arm weakness; left hand weakness; left arm hyperreflexia; positive Blank's sign on left side; decreased sensation in left thumb and fifth finger; normal sensation in left middle finger. Malik's neurologic exam is consistent with a left [...] but numbness in the left arm and fingers; consistent with sensory only left C7 radiculopathy - [...] will have cervical spine x-rays (lateral and flexion-extension views) and we?ll review your MRI together. - Monitor your neck and left arm symptoms closely. If you develop new shooting pain, increased weakness, or any other concerning changes, call our office to be seen sooner. - If you?d like, you may start physical therapy for your neck now--it can help with insurance approval--but you can also hold off and begin it later if symptoms worsen. Attestation: The following portions of the patient's history were reviewed, confirmed, and updated as necessary: allergies, current medications, past family history, past medical history, past social history, past surgical history, problem list, HPI, and ROS obtained by others. Some elements may be copied from a previous office note and have been reviewed/updated where appropriate. All portions reflect current medical decision making from today. The clinical and radiographic findings as well as the risks, benefits and alternatives of treatment have been reviewed in detail with the patient. The patient was advised to call the office if symptoms worsen or new symptoms develop. The patient expressed understanding and is in agreement with plan. López Dean MD, PhD This note was partially generated using Letsgofordinner voice recognition system, and there may be some incorrect words, spellings, and punctuation that were not noted in checking the note before saving. PROGRESS Observed: 08/30/2024 10:06 AM Status: COMPLETED Source: [facility] HNO ID: [id number] Author: AMMY OLIVA PA-C Service: ? Author Type: Physician Head Grower Type: Progress Notes Filed: 08/30/2024 10:12 Note Text: Per Triage: Malik Neely is a 54 year old female that [...] on triage, recommend patient be scheduled with [facility] spine provider for trial of conservative treatment Spine Xrays prior to appt: no Please make sure patient imaging is available for review Ammy Oliva PA-C PROGRESS Observed: 08/27/2024 3:03 PM Status: COMPLETED Source: [facility] HNO ID: [id number] Author: ?, ?, ? Service: ? Author Type: ? Type: Progress Notes Filed: 08/30/2024 10:12 Note Text: Patient name: Malik Neely Are you being referred by a Center for [facility] Provider or Pain Management Provider at [facility]? No If answer is YES please [...] the facility where the MRI/CT/myelogram was completed: [facility] Address: [address] [place] [address] [address], [place] [address] MRI/CT/myelogram viewable in Epic: No If not, please provide [phone] to fax in imaging reports for review. [...] where the surgery was completed: Additional Comments [phone] (Home Phone) ALBUMIN/CREATININE RATIO, URINE Collect ed: 04/30/2024 3:22 PM Status: F Source: [facility] Order Comment: Specimen Type : URINE SPECIMEN Ordering Facility: [facility] Address: [address] [place] [address] TYPE CODE TESTS RESULT OUT OF RANGE REFERENCE UNITS LAB 2161-8(LOINC) Creat Ur-mCnc 29.8 20.0-300.0 m g/dL LAB 37808-3(LOINC ) Microalbumin Ur-mCnc <12.0 mg/L LAB 9318-7(LOINC) Albumin/Creat Ur Result Comment: Not calculat ed Adult Male and Female Nephrotic Criteria: <30 mg/g is considered normal to mildly increased 30-300 mg/g is considered moderately increased >300 mg/g is considered severely increased KDIGO. (2013). KDIGO 2012 Clinical Practice Guideline for the Evaluation and Management of Chronic Kidney Disease. Official Journal of the International Society of Nephrology, 3(1), 1-150. Performed By: [facility] CLIA [id number] [address] [place] [address] CNOV Observed: 04/30/2024 3:00 PM Status: COMPLETED Source: [facility] Office Visit (CRISTÓBALWS) MALIK NEELY ([id number]) 1970 F Date Time Provider Department 04/30/24 3:00 PM ODETTE OCAMPO During your visit today, we recorded the following information about you: Pulse Respiration Blood pressure Weight 81/minute 18/minute 134/82 100.1 kg Odette Ocampo APRN.CNP 04/30/2024 4:03 PM Signed 04/11/2024 Patient [...] disease), cervical DDD (degenerative disc disease), lumbar [facility] Diabetes mellitus type II (HCC) Endometriosis GERD (gastroesophageal reflux disease) Hot flashes Hyperlipidemia Hypertension Labral tear of hip, degenerative left hip, Seeing ortho Obesity Plantar fasciitis of right foot 2013 s/p plantar fasciotomy S/P hysterectomy LSO Seasonal allergies Uterine fibroid s/p hysterectomy ALLERGIES Codeine, Contrast Dye, Shellfish Containing Products, Squash, Sulfa Dyne, and [place]pearl MEDICATIONS Current Outpatient Medications Medication Sig phenazopyridine (PYRIDIUM) 200 mg tablet Take 1 tablet by mouth three times a day as needed. cyclobenzaprine (FLEXERIL) 10 mg tablet Take 1 tablet by mouth two times a day as needed for muscle spasm. phenazopyridine (PYRIDIUM) 200 mg tablet Take 1 tablet by mouth three times a day as needed. glucosamine/msm/chondroit sulf (GLUCOSAMINE 0WJG-OUQ-GDBUMRICK ORAL) cyclobenzaprine (FLEXERIL) 10 mg tablet Take [...] 8 - 15 mmol/L 10 eGFR >=60 mL/min/1.73m? 106 Hemoglobin A1C 4.3 - 5.6 % [...] ICD10: K21.9 - stable on current regime Odette Ocampo, AMISH.CRUMB PACKER Prescription instructions reviewed with patient as applicable. [...] Medical Decision Making Level: 4 - Moderate Allergies As of Date: 04/30/2024 Noted Allergy Reaction CODEINE 10/06/2011 10 - Anaphylaxis CONTRAST DYE 10/06/2011 10 - Anaphylaxis SHELLFISH CONTAINING PRODUCTS 04/29/2016 8 - GI Upset SQUASH 03/13/2018 8 - GI Upset SULFA DYNE 10/06/2011 10 - Anaphylaxis WALNUT 03/13/2018 8 - GI Upset Date Reviewed: 04/30/2024 Reviewed by: Eileen Nagy LPN - Fully Assessed Reason for Visit: F/U 6 months [1177] Primary Visit Diagnosis:Diabetes mellitus type II (HCC) [E11.9] Other Visit Diagnoses:Hyperlipidemia, unspecified hyperlipidemia type [E78.5] Primary hypertension [I10] Gastroesophageal reflux disease, unspecified whether esophagitis present [K21.9] Order(s):LIPID PANEL BASIC [SQLIPB] Order #: [id number] FUTURE HEMOGLOBIN A1C [RYNBN8B] Order #: [id number] FUTURE ALBUMIN/CREATININE RATIO, URINE [SQUACR] Order #: [id number] FUTURE ALBUMIN/CREATININE RATIO, URINE [SQUACR] Order #: [id number]. #:[id number] Prescriptions as of 04/30/2024 - phenazopyridine (PYRIDIUM) 200 mg tablet Take 1 tablet by mouth three times a day as needed. - cyclobenzaprine (FLEXERIL) 10 mg tablet Take 1 tablet by mouth two times a day as needed for muscle spasm. - glucosamine/msm/chondroit sulf (GLUCOSAMINE 2VJM-LGT-KCHPUMPTL ORAL) - cyclobenzaprine (FLEXERIL) 10 mg tablet [...] twice daily. Problem List As Of Date 04/30/2024 Noted Resolved Hypertension [I10] Hyperlipidemia [E78.5] GERD [...] breast reduction [Z98.890] 08/14/2022 Obesity [E66.9] 10/07/2023 Medications Discontinued During This Encounter Prescriptions - phenazopyridine (PYRIDIUM) 200 mg tablet (Discontinued) Take 1 tablet by mouth three times a day as needed. Disposition: Return in about 6 months (around 10/31/2024). Follow-up and Disposition History for Encounter Date Provider Department Center 04/30/2024 [id number] OCAMPO [facility] Encounter Status:Closed by ODETTE OCAMPO on 04/30/24 PROGRESS Observed: 04/30/2024 2:36 PM Status: COMPLETED Source: [facility] HNO ID: [id number] Author: ODETTE OCAMPO APRN.[facility] Service: ? Author Type: Nurse Practitioner Type: [...] disease), cervical DDD (degenerative disc disease), lumbar [facility] Diabetes mellitus type II (HCC) Endometriosis GERD (gastroesophageal reflux disease) Hot flashes Hyperlipidemia Hypertension Labral tear of hip, degenerative left hip, Seeing ortho Obesity Plantar fasciitis of right foot 2013 s/p plantar fasciotomy S/P hysterectomy LSO Seasonal allergies Uterine fibroid s/p hysterectomy ALLERGIES Codeine, Contrast Dye, Shellfish Containing Products, Squash, Sulfa Dyne, and [place]pearl MEDICATIONS Current Outpatient Medications Medication Sig phenazopyridine (PYRIDIUM) 200 mg tablet Take 1 tablet by mouth three times a day as needed. cyclobenzaprine (FLEXERIL) 10 mg tablet Take 1 tablet by mouth two times a day as needed for muscle spasm. phenazopyridine (PYRIDIUM) 200 mg tablet Take 1 tablet by mouth three times a day as needed. glucosamine/msm/chondroit sulf (GLUCOSAMINE 4XHE-KUY-LCYBQUAZV ORAL) cyclobenzaprine (FLEXERIL) 10 mg tablet Take [...] 8 - 15 mmol/L 10 eGFR >=60 mL/min/1.73m? 106 Hemoglobin A1C 4.3 - 5.6 % [...] ICD10: K21.9 - stable on current regime Odette Podlogshanthi, ELECTROMAGNET CRANE OPERATOR.CRUMB PACKER Prescription instructions reviewed with patient as applicable. [...] Medical Decision Making Level: 4 - Moderate BACTERIA UR CULT Observed: 04/11/2024 2:55 PM Status: F Source: [facility] ORGANISM ID: 1 10,000 -<50,000 CFU/ml Normal urogenital pierre Performed By: [facility] CLIA [id number] [address] [place] [address] [place] CNOV Observed: 04/11/2024 2:20 PM Status: COMPLETED Source: [facility] Office Visit (FAMPWS) MALIK NEELY ([id number]) 1970 F Date Time Provider Department 04/11/24 2:20 PM PODLOGARODETTE During your visit today, we recorded the following information about you: Temperature Pulse Respiration Blood pressure 97.1 degrees 76/minute 16/minute 126/82 Weight 98.4 kg PodlogarOdette APRN.CRUMB PACKER 04/11/2024 2:58 PM Signed Chief Complaint Patient presents with: UTI HPI Malik Neely is a 53 year old female who [...] disease), cervical DDD (degenerative disc disease), lumbar [facility] Diabetes mellitus type II (HCC) [...] Hypertension Father Coronary Artery Disease Father 59 MD in 2010- LDa Thyroid Sister Thyroid Sister Heart Maternal Grandmother Rheumatologic disease Paternal Grandmother arthritis Patient Allergies ALLERGIES Allergen Reactions Codeine Anaphylaxis Contrast Dye Anaphylaxis Shellfish Containin* GI Upset Squash GI Upset Sulfa Dyne Anaphylaxis [facility] GI Upset Current Medications Current Outpatient Medications on File Prior to Visit Medication Sig cyclobenzaprine (FLEXERIL) 10 mg tablet Take 1 tablet by mouth two times a day as needed for muscle spasm. phenazopyridine (PYRIDIUM) 200 mg tablet Take 1 tablet by mouth three times a day as needed. glucosamine/msm/chondroit sulf (GLUCOSAMINE 7PJH-WOB-VDBQDSPTX ORAL) cyclobenzaprine (FLEXERIL) 10 mg tablet Take [...] EXAM: BP 126/82 Pulse 76 Temp 36.2 ?C (97.1 ?F) Resp 16 Wt 98.4 kg (217 lb) BMI 33.99 kg/m? General Appearance: Well appearing, alert, in no [...] PHENAZOPYRIDINE 200 MG TABLET - NITROFURANTOIN MONOHYDRATE AND MACROCRYSTAL 100 MG ORAL CAP - BACTERIAL CULTURE, URINE - follow-up if symptoms fail to improve to ER with red flag symptoms Odette Podlogar, ELECTROMAGNET CRANE OPERATOR.CRUMB PACKER Prescription instructions reviewed with patient as applicable. [...] Medical Decision Making Level: 3 - Low Allergies As of Date: 04/11/2024 Noted Allergy Reaction CODEINE 10/06/2011 10 - Anaphylaxis CONTRAST DYE 10/06/2011 10 - Anaphylaxis SHELLFISH CONTAINING PRODUCTS 04/29/2016 8 - GI Upset SQUASH 03/13/2018 8 - GI Upset SULFA DYNE 10/06/2011 10 - Anaphylaxis WALNUT 03/13/2018 8 - GI Upset Date Reviewed: 04/02/2024 Reviewed by: Lyn Winkler LPN - Fully Assessed Reason for Visit: UTI [116] Primary Visit Diagnosis:UTI symptoms [R39.9] Order(s):UA DIP, URINE (POC) [[id number]] Order #: [id number]. #:[id number] phenazopyridine (PYRIDIUM) 200 mg tabletTake 1 tablet by mouth three times a day as needed.Disp: 12 tabletRfl: 0 nitrofurantoin monohydrate and macrocrystal (MACROBID) 100 mg capsuleTake 1 capsule by mouth two times a day with meals for 5 days.Disp: 10 capsuleRfl: 0 BACTERIAL CULTURE, URINE [SQURCUL] Order #: [id number]. #:[id number] Prescriptions as of 04/11/2024 - phenazopyridine (PYRIDIUM) 200 mg tablet Take 1 tablet by mouth three times a day as needed. - nitrofurantoin monohydrate and macrocrystal (MACROBID) 100 mg capsule Take 1 capsule by mouth two times a day with meals for 5 days. - cyclobenzaprine (FLEXERIL) 10 mg tablet Take 1 tablet by mouth two times a day as needed for muscle spasm. - phenazopyridine (PYRIDIUM) 200 mg tablet Take 1 tablet by mouth three times a day as needed. - glucosamine/msm/chondroit sulf (GLUCOSAMINE 2DWS-RTR-MKRACUNZN ORAL) - cyclobenzaprine (FLEXERIL) 10 mg tablet [...] twice daily. Problem List As Of Date 04/11/2024 Noted Resolved Hypertension [I10] Hyperlipidemia [E78.5] GERD [...] PHENAZOPYRIDINE 200 MG TABLET 12 t* 0 04/11/2024 Route: ORAL Sig: Take 1 tablet by mouth three times a day as needed. NITROFURANTOIN MONOHYDRATE AND MACROCR* 10 c* 0 04/11/2024 04/16/2024 Route: ORAL Sig: Take 1 capsule by mouth two times a day with meals for 5 days. Encounter Status:Closed by ODETTE OCAMPO on 04/11/24 PROGRESS Observed: 04/11/2024 2:18 PM Status: COMPLETED Source: [facility] HNO ID: [id number] Author: ODETTE OCAMPO APRN.CRUMB PACKER Service: ? Author Type: Nurse Practitioner Type: Progress Notes Filed: 04/11/2024 14:58 Note Text: Chief Complaint Patient presents with: UTI HPI Malik Neely is a 53 year old female who [...] tear of left knee 2014 s/p repair Arthritis of left shoulder region [...] Hypertension Father Coronary Artery Disease Father 59 MD in 2009- LDa Thyroid Sister Thyroid Sister Heart Maternal Grandmother Rheumatologic disease Paternal Grandmother arthritis Patient Allergies ALLERGIES Allergen Reactions Codeine Anaphylaxis Contrast Dye Anaphylaxis Shellfish Containin* GI Upset Squash GI Upset Sulfa Dyne Anaphylaxis [place]pearl GI Upset Current Medications Current Outpatient Medications on File Prior to Visit Medication Sig cyclobenzaprine (FLEXERIL) 10 mg tablet Take 1 tablet by mouth two times a day as needed for muscle spasm. phenazopyridine (PYRIDIUM) 200 mg tablet Take 1 tablet by mouth three times a day as needed. glucosamine/msm/chondroit sulf (GLUCOSAMINE 3SUE-LUA-[id number] ORAL) cyclobenzaprine (FLEXERIL) 10 mg tablet Take [...] EXAM: BP 126/82 Pulse 76 Temp 36.2 ?C (97.1 ?F) Resp 16 Wt 98.4 kg (217 lb) BMI 33.99 kg/m? General Appearance: Well appearing, alert, in no [...] PHENAZOPYRIDINE 200 MG TABLET - NITROFURANTOIN MONOHYDRATE AND MACROCRYSTAL 100 MG ORAL CAP - BACTERIAL CULTURE, URINE - follow-up if symptoms fail to improve to ER with red flag symptoms Odette Podlogar, ELECTROMAGNET CRANE OPERATOR.CRUMB PACKER Prescription instructions reviewed with patient as applicable. [...] Medical Decision Making Level: 3 - Low ALLERGIES DATE TYPE / CODE NAME / CODE REACTION SEVERITY SOURCE 10/28/2024 DRUG INGREDI/0354369 03(SNOMED CT) PINEAPPLE RASH [facility] 03/13/2018 DRUG INGREDI/7549538 03(SNOMED CT) SQUASH GI UPSET [facility] 03/13/2018 DRUG INGREDI/2694260 03(SNOMED CT) STRAWBERRY OTHER: SEE C [facility] 03/13/2018 DRUG INGREDI/1285083 03(SNOMED CT) WALNUT GI UPSET [facility] 04/29/2016 Drug Class/[id number] (SNOMED CT) SHELLFISH CONTAINING PRODUCTS GI UPSET [facility] 10/06/2011 DRUG INGREDI/[id number] 03(SNOMED CT) CODEINE ANAPHYLAXIS [facility] 10/06/2011 DRUG INGREDI/0934287 03(SNOMED CT) CONTRAST DYE ANAPHYLAXIS [facility] 10/06/2011 DRUG/[id number]( SNOMED CT) SULFA DYNE ANAPHYLAXIS [facility] [facility] ENCOUNTERS ADMIT/DISCHARGE ACCOUNT NUMBER ADMITTING ENCOUNTER CLASS LOCATION SOURCE 02/07/2025/02/08/20 [id number] [facility] HospitalBuild ing:FADUMO [facility] 01/29/2025/01/30/20 [id number] [facility] HospitalBuild ing:WOFM [facility] 01/14/2025/01/15/20 [id number] [facility] 12/20/2024/12/21/19 [id number] JENNIFER NELSON [facility] HospitalBuild ing:LDORRoom: POOLBed: 03 [facility] 11/12/2024/11/13/19 [id number] [facility]11[facility]06[facility]19 25 [id number] [facility] HospitalBuild ing:ALEJANDROB [facility] 11/05/2024/11/06/19 25 [id number] [facility]10[facility]04/19 25 [id number] [facility] [id number] [facility] 09/05/2024/09/06/19 25 [id number] [facility] 04[facility]30/2024/05/01/19 25 [id number] [facility] HospitalBuild ing:[facility] 04/11/2024/04/11/19 25 [id number] [facility] PAYERS ENCOUNTER GUARANTOR PAYER SUBSCRIBER SOURCE 02/07/2025 Primary Insurance:BLUE CARD PPO OOSPolicy Number: [id number] Date:9575-60-97Bqub Name:Fatmata PALAFOX: [id number] [place], [place] [id number] [place] [address] 01/29/2025 Primary Insurance:BLUE CARD PPO OOSPolicy Number: [id number] Date:4871-84-88Kcqn Name:Fatmata PALAFOX: [id number] [place], [place] [id number] [place] [address] 01/14/2025 Primary Insurance:BLUE CARD PPO OOSPolicy Number: [id number] Date:4462-48-17Jbfh Name:Fatmata PALAFOX: [id number] [place], [place] [address] [place] [address] 12/20/2024 Primary Insurance:BLUE CARD PPO OOSPolicy Number: [id number] Date:9258-21-06Mkim Name:Fatmata PALAFOX: [id number] [place] [address] [facility] 11/12/2024 Primary Insurance:BLUE CARD PPO OOSPolicy Number: [id number] Date:1753-13-42Aveo Name:Fatmata PALAFOX: [id number] [place] [address] [facility] 11/05/2024 Primary Insurance:BLUE CARD PPO OOSPolicy Number: [id number] Date:9567-04-32Ansc Name:Fatmata PALAFOX: [id number] [place], [place] [id number] [place] [address] 11/05/2024 Primary Insurance:BLUE CARD PPO OOSPolicy Number: [id number] Date:9903-81-65Kzgp Name:Fatmata HUNTERMaicol: [id number] [place], [place] [id number] [place] [address] 10/03/2024 Primary Insurance:BLUE CARD PPO OOSPolicy Number: [id number] Date:2101-97-45Kexn Name:Fatmata PALAFOX: [id number] [place] [address] [facility] 10/03/2024 Primary Insurance:BLUE CARD PPO OOSPolicy Number: [id number] Date:5870-34-22Qeum Name:Fatmata HUNTERMaicol: [id number] [place] [address] [facility] 09/05/2024 Primary Insurance:BLUE CARD PPO OOSPolicy Number: [id number] Date:9255-28-52Sxye Name:Fatmata NEELYCHON: [id number] [place] [address] [facility] 04/30/2024 Primary Insurance:BLUE CARD PPO OOSPolicy Number: [id number] Date:8809-31-85Jtht Name:Fatmata PALAFOX: [id number] [place] [address] [facility] 04/11/2024 Primary Insurance:BLUE CARD [facility] Number: [id number] Date:4878-41-60Wxge Name:Fatmata PALAFOX: [id number] [place] [address] [facility]
== END 2024-11-02 11:43 | disposition home or self-care (01) ==
LOC: ED 10:23 → MS3 10-29 07:17
PROVIDERS: Surgery; Admitting Provider Internal Medicine; Emergency Provider Emergency Medicine; PCP Family Medicine; Visit Provider Student in an Organized Health Care Education/Training Program
DX: K52.9 Noninfective gastroenteritis and colitis, unspecified (principal); E11.9 Type 2 diabetes mellitus without complications; E87.20 Acidosis, unspecified; I10 Essential (primary) hypertension; E66.9 Obesity, unspecified; E78.00 Pure hypercholesterolemia, unspecified; K21.9 Gastro-esophageal reflux disease without esophagitis; M16.12 Unilateral primary osteoarthritis, left hip; E87.6 Hypokalemia; Z87.891 Personal history of nicotine dependence; Z90.710 Acquired absence of both cervix and uterus; Z79.82 Long term (current) use of aspirin; Z79.899 Other long term (current) drug therapy; Z79.84 Long term (current) use of oral hypoglycemic drugs; Z79.85 Long-term (current) use of injectable non-insulin antidiabetic drugs; Z68.33 Body mass index [BMI] 33.0-33.9, adult; K38.9 Disease of appendix, unspecified
CPT/HCPCS: 36415; 74176; 80048; 80053; 81001; 82274; 82962; 83036; 83605; 83630; 83690; 83735; 84100; 84132; 85025; 87040; 87086; 87088; 87493; 87506; 93005; 94668; 96361; 96365; 96366; 96367; 96372; 96375; 96376; 99221; 99284; A4216; G0378; J2405